=== PATIENT | female | born 1965 | race Caucasian/White ===

== ENCOUNTER 2016-06-25 20:27 | Observation (INO) | payer OTHER ==
[~2016-06-25] VITALS: Ht 160 cm; Wt 80.8 kg
[~2016-06-25 20:27] MED LIST: ALBUAER19 INH; ASPI81TA28 PO; ATOR-26 PO; ATV1 PO; CITA20TA9 PO; FENO48TA9 PO; FLNIN/ NAE; INSDGI SQ; LISI10TA PO; MAGN400T6 PO; METO50TA16 PO; MOME100A INH; MONT1TAB5 PO; MULT-513 PO; NVLGIPEN SQ; POLY335019 PO; TRAM-10 PO; TRMCR130WC PO; VALA1TAB PO; VST25HP PO
[2016-06-25] MEDS ORDERED: FENTANYL CITRATE INJ 50 MCG/1 ML 2 ML VIAL IV STA (20:49)
[2016-06-25 21:01] LABS: HEMATOCRIT 43.2 % (37-47); MEAN CORPUSCULAR HEMOGLOBIN 30.1 pg (25-34); MEAN CORPUSCULAR HGB CONC 34.3 g/dl (32-36); MEAN PLATELET VOLUME 9.2 fL (7.4-10.4); PLATELET COUNT 350 K/uL (130-400); RED BLOOD COUNT 4.91 M/uL (4.2-5.4); WHITE BLOOD COUNT 14.01 K/uL (4.8-10.8)
--- NOTE | 2016-06-25 21:02 | DIAGNOSTIC IMAGING REPORT ---
CHEST ONE VIEW PORTABLE CLINICAL HISTORY: Atypical chest pain COMPARISON STUDY: 09/30/2015 FINDINGS: The heart is normal in size. There is mild interstitial thickening. There is no overt failure. No pleural effusions are visualized. There is slight haziness the left lung base, likely related to technical factors. A follow-up PA and lateral study might be considered to exclude a true left basilar airspace opacity. No pleural effusions are visualized. IMPRESSION: Slight increase in left basal markings, likely related to technical factors. A PA and lateral study might considered in follow-up to help exclude a true left basal airspace opacity Electronically signed by: Yared Grover M.D. 06/25/2016 9:00 PM Dictated Date/Time: 06/25/2016 8:59 PM
[2016-06-25 21:18] LABS: BLOOD UREA NITROGEN 9 mg/dl (7-18); CALCIUM 9.3 mg/dl (8.5-10.1); CARBON DIOXIDE 27 mmol/L (21-32); CHLORIDE 101 mmol/L (98-107); CREATININE 0.57 mg/dl (0.60-1.20); GLUCOSE 158 mg/dl (70-99); POTASSIUM 3.5 mmol/L (3.5-5.1); SODIUM 138 mmol/L (136-145)
[2016-06-25 21:23] LABS: CKMB/CK RATIO 1.3 (0-3.0)
[2016-06-25] MEDS ORDERED: ISOS30TA35 PO (21:32)
[2016-06-25] MEDS ORDERED: INSDGI SC (21:32)
[2016-06-25 21:48] LABS: BASO % 0.3 %; BASO ABS # 0.04 K/uL (0-0.2); COMPLETE YES; EOS % 0.6 %; IG% 0.4 %; LYMPH % 36.2 %; LYMPH ABS # 5.07 K/uL (1.2-3.4); MONO % 4.2 %; NEUT % 58.3 %; SMUDGE CELLS PRESENT
[2016-06-25 22:08] VITALS: O2SAT 95; BMI 31.9
[2016-06-25] MEDS ORDERED: LORAZEPAM 0.5 MG TAB SL STA (22:19)
[2016-06-25] MEDS ORDERED: POLYETHYLENE (MIRALAX) 17 GM PACK PO PRN (23:15)
[2016-06-25] MEDS ORDERED: DEXTROSE 50% 50 ML SYR IV PRN (23:15)
[2016-06-25] MEDS ORDERED: GLUCAGON FOR INJ 1 MG VIAL SQ PRN (23:15)
[2016-06-25] MEDS ORDERED: MoRPHine SULFATE 2 MG/ML CARP IV PRN (23:15)
[2016-06-25] MEDS ORDERED: ONDANSETRON INJ 2 MG/ML 2 ML VIAL IV PRN (23:15)
[2016-06-25] MEDS ORDERED: NITROGLYCERIN 0.4 MG SL PER TAB CHARGE SL PRN (23:15)
[2016-06-25] MEDS ORDERED: ACETAMINOPHEN 325 MG TAB PO PRN (23:15)
[2016-06-25] MEDS ORDERED: GLUCOSE 10 TABS/TUBE PO PRN (23:15)
[2016-06-25] MEDS ORDERED: GLUCOSE 40% GEL 15 GM TUBE PO PRN (23:15)
[2016-06-25] MEDS ORDERED: TRAMADOL HCL 50 MG TAB PO PRN (23:30)
[2016-06-25] MEDS ORDERED: ALBUTEROL HFA 8 GM INHALER INH PRN (23:30)
[2016-06-25] MEDS ORDERED: LORAZEPAM 1 MG TAB PO PRN (23:30)
[2016-06-25] MEDS ORDERED: FLUTICASONE PROPIONATE NA SPR 16 GM BTL NAE PRN (23:30)
[2016-06-25 23:37] VITALS: O2SAT 95
--- NOTE | 2016-06-25 23:42 | History and Physical ---
History & Physical Date & Time of Service: Jun 25, 2016 at 23:20 Chief Complaint: Chest Pain Primary Care Physician: Jeremiah Foster M.D. History of Present Illness Source: patient, family 51 yo F with chronic chest pain presents with worsening of chest pain associated with palpitations, tingling in her R arm, nausea and some shortness of breath. She has a h/o STEMI s/p PCI to RCA, chronic RCA occlusion per cardiac cath in June of 2015, hypertension, tobacco abuse, noncompliance, diabetes that is uncontrolled and hypercholesterolemia. She was recently seen in the Cards office as an outpatient for chest pains and underwent a stress test that was negative for inducible ischemia. She was given PRN nitro tabs to take for pain which she didn't have at the time; her Imdur was also increased to 60mg recently.She states that after taking the nitro tabs at home, she felt no relief and called EMS. In the ambulance she received 2 more nitro sprays and ASA 325mg, however, she didn't get any relief until she had the fentanyl in the ER. At the time of this interview her pain was at a zero and all of her symptoms listed above had resolved. She also mentioned a headache that had resolved. Past Medical/Surgical History Medical Problems: (1) Asthma Status: Chronic (2) Benign hypertension Status: Chronic (3) Diabetes mellitus Status: Chronic (4) Genital herpes Status: Chronic (5) Heart disease Status: Chronic (6) Myocardial infarction Status: Chronic (7) Placement of stent Status: Resolved (8) Sarcoidosis Status: Chronic (9) Tobacco abuse Status: Chronic Surgical Problems: (1) H/O exploratory laparotomy Status: Chronic (2) Previous section Status: Chronic (3) S/P TAO-BSO Status: Chronic Family History Cancer Diabetes mellitus Hypertension Kidney disease Kidney stones Social History Smoking Status: Current Every Day Smoker Alcohol Use: none Drug Use: none Marital Status: Housing status: lives alone Occupational Status: disabled Immunizations History of Influenza Vaccine: Yes Influenza Vaccine Date: Jan 03, 2016 History of Tetanus Vaccine?: Yes Tetanus Immunization Date: Jan 19, 2013 History of Pneumococcal: Yes Pneumococcal Date: Feb 10, 2006 History of Hepatitis B Vaccine: Yes Hepatitis Immunization Date: Jun 15, 2016 Multi-Drug Resistant Organisms History of MDRO: No Allergies Coded Allergies: Sulfamethoxazole w/Trimethoprim (Verified Allergy, Intermediate, N/V/D, ) Adhesives (Verified Allergy, Mild, 10/01/15) Aminoglycosides (Verified Allergy, Unknown, ., 10/01/15) Bacitracin (Verified Allergy, Unknown, ., 10/01/15) Molds & Smuts (Verified Allergy, Unknown, ., 10/01/15) Neomycin (Verified Allergy, Unknown, ., 10/01/15) Polymyxin B (Verified Allergy, Unknown, ., 10/01/15) Home Medications Scheduled Aspirin (Aspirin Ec), 81 MG PO DAILY Atorvastatin (Lipitor), 80 MG PO QPM Citalopram Hydrobromide (Celexa), 20 MG PO QPM Fenofibrate (Tricor), 48 MG PO QPM Insulin Aspart (Novolog Flexpen), 14 UNITS SQ AC Insulin Glargine (Lantus), 30 SC AMPM Isosorbide Mononitrate Ext Rel (Imdur Ext Rel), 60 MG PO DAILY Lisinopril (Prinivil), 10 MG PO DAILY Metoprolol Tartrate (Lopressor) (Lopressor), 50 MG PO BID Montelukast Sodium (Montelukast Sodium), 10 MG PO DAILY Multivitamins/Minerals (Mvi With Minerals), 1 TAB PO DAILY Triamcinolone Acet (Aristocort 0.1%), 1 APPLN PO TID UD Scheduled PRN Albuterol Inhaler (Ventolin Inhaler), 2 PUFFS INH QID PRN for Shortness of Breath Fluticasone Propionate (Fluticasone Propionate), 2 SPRAYS JV DAILY PRN for CONGESTION Hydroxyzine HCl (Hydroxyzine Pamoate), 25 MG PO Q6 PRN for Itching Lorazepam (Lorazepam), 1 MG PO BID PRN for Anxiety Mometasone Furoate-Formoterol (Dulera 100/5 Mcg), 2 PUFFS INH BID PRN for SOB/ Wheezing Polyethylene Glycol 3350 (Miralax), 17 GM PO DAILY PRN for Constipation Tramadol (Ultram), 50 MG PO Q6 PRN for Pain Valacyclovir (Valtrex), 1,000 MG PO BID PRN for as needed Review of Systems All systems were reviewed and negative except as indicated in HPI. Physical Exam Vital Signs Date Time Temp Pulse Resp B/P Pulse Ox O2 Delivery O2 Flow Rate FiO2 06/25/16 22:18 Room Air 06/25/16 22:16 80 20 115/80 97 Room Air 06/25/16 22:08 95 Room Air 06/25/16 20:33 36.6 83 20 133/74 95 Room Air 06/25/16 20:33 Room Air 06/25/16 20:28 89 GEN: WNWD, in no acute distress, alert and appropriate HEENT: NC/AT, normal sclerae CARDIO: reg rate, S1/2 heard without m/g/r LUNGS: CTA bilaterally, no crackles, rales or wheezes, good diaphragmatic excursion ABD: soft, non-tender, non-distended, no rebound or guarding, +BS EXTREMITY: pulses 2+ bilat, no LE swelling or edema, extremities are warm and well-perfused NEURO: CN 2-12 grossly intact, no gross focal deficits MUSC: 5/5 strength throughout, no focal deficits SKIN: warm and dry Diagnostics Laboratory Results Results Past 24 Hours Test 06/25/16 20:16 06/25/16 23:13 Range/Units White Blood Count 14.01 4.8-10.8 K/uL Red Blood Count 4.91 4.2-5.4 M/uL Hemoglobin 14.8 12.0-16.0 g/dL Hematocrit 43.2 37-47 % Mean Corpuscular Volume 88.0 80-100 fL Mean Corpuscular Hemoglobin 30.1 25-34 pg Mean Corpuscular Hemoglobin Concent 34.3 32-36 g/dl Platelet Count 350 130-400 K/uL Mean Platelet Volume 9.2 7.4-10.4 fL Neutrophils (%) (Auto) 58.3 % Lymphocytes (%) (Auto) 36.2 % Monocytes (%) (Auto) 4.2 % Eosinophils (%) (Auto) 0.6 % Basophils (%) (Auto) 0.3 % Neutrophils # (Auto) 8.17 1.4-6.5 K/uL Lymphocytes # (Auto) 5.07 1.2-3.4 K/uL Monocytes # (Auto) 0.59 0.11-0.59 K/uL Eosinophils # (Auto) 0.09 0-0.5 K/uL Basophils # (Auto) 0.04 0-0.2 K/uL RDW Standard Deviation 43.8 36.4-46.3 fL RDW Coefficient of Variation 13.6 11.5-14.5 % Immature Granulocyte % (Auto) 0.4 % Immature Granulocyte # (Auto) 0.05 0.00-0.02 K/uL Smudge Cells PRESENT Sodium Level 138 136-145 mmol/L Potassium Level 3.5 3.5-5.1 mmol/L Chloride Level 101 98-107 mmol/L Carbon Dioxide Level 27 21-32 mmol/L Anion Gap 10.0 3-11 mmol/L Blood Urea Nitrogen 9 7-18 mg/dl Creatinine 0.57 0.60-1.20 mg/dl Est Creatinine Clear Calc Drug Dose 116.9 ml/min Estimated GFR () 123.5 Estimated GFR (Non- 106.6 BUN/Creatinine Ratio 16.0 10-20 Random Glucose 158 70-99 mg/dl Calcium Level 9.3 8.5-10.1 mg/dl Total Creatine Kinase 72 26-192 U/L Creatine Kinase MB 0.9 0.5-3.6 ng/ml Creatine Kinase MB Ratio 1.3 0-3.0 Troponin I < 0.015 0-0.045 ng/ml Diagnostic Radiology CXR port IMPRESSION: Slight increase in left basal markings, likely related to technical factors. A PA and lateral study might considered in follow-up to help exclude a true left basal airspace opacity EKG EKG: SR 86, evidence of prior inferior and anterior infarct, unchanged from prior ekg in 2016. Impression Assessment and Plan 51 yo female with known CAD and chronic RCA occlusion presents with worsening of recent chest pain associated with symptoms that have resolved with Fentanyl. 1. Chest pain-likely angina related to chronic occlusive disease. Cont medical management of CAD currently on and await Cards evaluation--they see her as outpatient. She was recently increased on Imdur from 30 to 60mg PO daily. She took nitro with no relief but had total relief in the ER wtih Fentanyl. For this reason, would opt for morphine first line PRN pain overnight. She is currently pain-free. Cont to trend serial cardiac enzymes-first set was negative. 2. DMII-uncontrolled, ISS/Lantus, inpt glycemic manager trust consult 3, Active smoker-encouraged to quit 4. HTN-controlled, however, she admits to not taking her lisinopril today because she was afraid her BP would drop too low on the recently increased Indur 60mg 5. Hyperlipidemia-cont Lipitor and Fenofibrate. Lovenox 40mg SQ daily Full Code Dispo-to telemetry for monitoring overnight. Grazyna Sorenson DO Hospitalist Level of Care Telemetry Advanced Directives Existing Living Will: No Existing Power of Stenocaptioner: No Resuscitation Status FULL RESUSCITATION VTE Prophylaxis VTE Risk Assessment Done? Y/N: Yes Risk Level: Moderate Given or contraindicated: Enoxaparin (Lovenox)SQ
[2016-06-25 23:43] LABS: PROTHROMBIN TIME (PATIENT) 10.3 SECONDS (9.0-12.0)
[2016-06-25] MEDS ORDERED: IV FLUIDS COMPLETED PRN (23:45)
[2016-06-25] MEDS ORDERED: PHARMACY GLYCEMIC MGMT CONSULT PRN (23:45)
[2016-06-26 00:10] VITALS: BP 145/73; PULSE 78; TEMP 37; O2SAT 93
--- NOTE | 2016-06-26 00:42 | EMERGENCY ROOM VISIT NOTE ---
History Report prepared by Berry: Katiuska Lovell Under the Supervision of: Dr. Ozzie Osullivan D.O. First contact with patient: 20:35 Chief Complaint: CHEST PAIN Stated Complaint: CHEST PAIN History of Present Illness The patient is a 51 year old female who presents to the Emergency Room with complaints of worsening left-sided chest pain that started around 1700. She describes the pain has heaviness and pounding. She came to the ED via ambulance. She was given 324 mg of aspirin and two sprays of SL nitroglycerin en route. The patient was visiting her friend when the pain started. She states that she was just sitting there, but she adds that she got into an argument with her daughter on the phone also. She began to feel her heart racing and then she developed the chest pain. The patient is also experiencing a headache, right arm pain, nausea, and shortness of breath. She denies rhinorrhea, cough, and vomiting. The patient adds that she took her insulin this afternoon, but didn't eat much so she thought that the pain might be due to her blood sugar being low. She ate something but the pain did not improve. The patient denies any history of blood clots and problems with her aorta. the patient has a history of diabetes, hypertension, hyperlipidemia, and sarcoidosis. She also has a history of previous MIs and has two stents placed, but they were so long ago that she doesn't remember if this feels similar to those. Additionally, the patient states that she has been experiencing intermittent chest pain, so she was started on long-acting nitroglycerin, which was recently increased. Source of History: patient Onset: around 1700 Position: chest (left) Quality: other (heaviness, pounding) Timing: worsening Associated Symptoms: + SOB, + headache, + nausea, No cough, No vomiting Note: right arm pain, no rhinorrhea Review of Systems See HPI for pertinent positives & negatives. A total of 10 systems reviewed and were otherwise negative. Past Medical & Surgical Medical Problems: (1) Asthma (2) Benign hypertension (3) Chest pain (4) Diabetes mellitus (5) Genital herpes (6) Heart disease (7) Myocardial infarction (8) Placement of stent (9) Sarcoidosis (10) Tobacco abuse Surgical Problems: (1) H/O exploratory laparotomy (2) Previous section (3) S/P TAO-BSO Family History Cancer Diabetes mellitus Hypertension Kidney disease Kidney stones Social History Smoking Status: Current Every Day Smoker Alcohol Use: none Drug Use: none Marital Status: Housing Status: lives alone Current/Historical Medications Scheduled Aspirin (Aspirin Ec), 81 MG PO DAILY Atorvastatin (Lipitor), 80 MG PO QPM Citalopram Hydrobromide (Celexa), 20 MG PO QPM Fenofibrate (Tricor), 48 MG PO QPM Insulin Aspart (Novolog Flexpen), 14 UNITS SQ AC Insulin Glargine (Lantus), 30 SC AMPM Isosorbide Mononitrate Ext Rel (Imdur Ext Rel), 60 MG PO DAILY Lisinopril (Prinivil), 10 MG PO DAILY Metoprolol Tartrate (Lopressor) (Lopressor), 50 MG PO BID Montelukast Sodium (Montelukast Sodium), 10 MG PO DAILY Multivitamins/Minerals (Mvi With Minerals), 1 TAB PO DAILY Triamcinolone Acet (Aristocort 0.1%), 1 APPLN PO TID UD Scheduled PRN Albuterol Inhaler (Ventolin Inhaler), 2 PUFFS INH QID PRN for Shortness of Breath Fluticasone Propionate (Fluticasone Propionate), 2 SPRAYS JV DAILY PRN for CONGESTION Hydroxyzine HCl (Hydroxyzine Pamoate), 25 MG PO Q6 PRN for Itching Lorazepam (Lorazepam), 1 MG PO BID PRN for Anxiety Mometasone Furoate-Formoterol (Dulera 100/5 Mcg), 2 PUFFS INH BID PRN for SOB/ Wheezing Polyethylene Glycol 3350 (Miralax), 17 GM PO DAILY PRN for Constipation Tramadol (Ultram), 50 MG PO Q6 PRN for Pain Valacyclovir (Valtrex), 1,000 MG PO BID PRN for as needed Allergies Coded Allergies: Sulfamethoxazole w/Trimethoprim (Verified Allergy, Intermediate, N/V/D, ) Adhesives (Verified Allergy, Mild, 10/01/15) Aminoglycosides (Verified Allergy, Unknown, ., 10/01/15) Bacitracin (Verified Allergy, Unknown, ., 10/01/15) Molds & Smuts (Verified Allergy, Unknown, ., 10/01/15) Neomycin (Verified Allergy, Unknown, ., 10/01/15) Polymyxin B (Verified Allergy, Unknown, ., 10/01/15) Physical Exam Vital Signs Date Time Temp Pulse Resp B/P Pulse Ox O2 Delivery O2 Flow Rate FiO2 06/25/16 22:18 Room Air 06/25/16 22:16 80 20 115/80 97 Room Air 06/25/16 22:08 95 Room Air 06/25/16 20:33 36.6 83 20 133/74 95 Room Air 06/25/16 20:33 Room Air 06/25/16 20:28 89 Physical Exam GENERAL: alert, sitting up in bed, anxious, no distress, non-toxic EYE EXAM: normal conjunctiva OROPHARYNX: no exudate, no erythema, lips, buccal mucosa, and tongue normal and mucous membranes are moist NECK: supple, no nuchal rigidity, no adenopathy, non-tender LUNGS: Clear to auscultation. Normal chest wall mechanics HEART: no murmurs, S1 normal and S2 normal ABDOMEN: abdomen soft, non-tender, normo-active bowel sounds, no masses, no rebound or guarding. BACK: Back is symmetrical on inspection and there is no deformity, no midline tenderness, no CVA tenderness. SKIN: no rashes and no bruising UPPER EXTREMITIES: upper extremities are grossly normal, radial pulses equal bilaterally. LOWER EXTREMITIES: No pitting edema, calves equal bilaterally. NEURO EXAM: Normal sensorium, cranial nerves II-XII grossly intact, normal speech, no gross weakness of arms, no gross weakness of legs. Medical Decision & Procedures ER Provider Diagnostic Interpretation: Xray results per the radiologist and my interpretation. CHEST ONE VIEW PORTABLE IMPRESSION: Slight increase in left basal markings, likely related to technical factors. A PA and lateral study might considered in follow-up to help exclude a true left basal airspace opacity Electronically signed by: Yared Grover M.D. 06/25/2016 9:00 PM Dictated Date/Time: 06/25/2016 8:59 PM Laboratory Results 06/25/16 20:16 Red Blood Count 4.91, Mean Corpuscular Volume 88.0, Mean Corpuscular Hemoglobin 30.1, Mean Corpuscular Hemoglobin Concent 34.3, Mean Platelet Volume 9.2, Neutrophils (%) (Auto) 58.3, Lymphocytes (%) (Auto) 36.2, Monocytes (%) (Auto) 4.2, Eosinophils (%) (Auto) 0.6, Basophils (%) (Auto) 0.3, Neutrophils # (Auto) 8.17, Lymphocytes # (Auto) 5.07, Monocytes # (Auto) 0.59, Eosinophils # (Auto) 0.09, Basophils # (Auto) 0.04 06/25/16 20:16 Test 06/25/16 20:16 White Blood Count 14.01 K/uL (4.8-10.8) Red Blood Count 4.91 M/uL (4.2-5.4) Hemoglobin 14.8 g/dL (12.0-16.0) Hematocrit 43.2 % (37-47) Mean Corpuscular Volume 88.0 fL (80-100) Mean Corpuscular Hemoglobin 30.1 pg (25-34) Mean Corpuscular Hemoglobin Concent 34.3 g/dl (32-36) Platelet Count 350 K/uL (130-400) Mean Platelet Volume 9.2 fL (7.4-10.4) Neutrophils (%) (Auto) 58.3 % Lymphocytes (%) (Auto) 36.2 % Monocytes (%) (Auto) 4.2 % Eosinophils (%) (Auto) 0.6 % Basophils (%) (Auto) 0.3 % Neutrophils # (Auto) 8.17 K/uL (1.4-6.5) Lymphocytes # (Auto) 5.07 K/uL (1.2-3.4) Monocytes # (Auto) 0.59 K/uL (0.11-0.59) Eosinophils # (Auto) 0.09 K/uL (0-0.5) Basophils # (Auto) 0.04 K/uL (0-0.2) RDW Standard Deviation 43.8 fL (36.4-46.3) RDW Coefficient of Variation 13.6 % (11.5-14.5) Immature Granulocyte % (Auto) 0.4 % Immature Granulocyte # (Auto) 0.05 K/uL (0.00-0.02) Smudge Cells PRESENT Prothrombin Time 10.3 SECONDS (9.0-12.0) Prothromb Time International Ratio 1.0 (0.9-1.1) Anion Gap 10.0 mmol/L (3-11) Est Creatinine Clear Calc Drug Dose 116.9 ml/min Estimated GFR () 123.5 Estimated GFR (Non- 106.6 BUN/Creatinine Ratio 16.0 (10-20) Calcium Level 9.3 mg/dl (8.5-10.1) Total Creatine Kinase 72 U/L (26-192) Creatine Kinase MB 0.9 ng/ml (0.5-3.6) Creatine Kinase MB Ratio 1.3 (0-3.0) Troponin I < 0.015 ng/ml (0-0.045) Hepatitis C Antibody Screen NEG (NEG) Laboratory results per my review. Medications Administered Medications (Trade) Dose Ordered Sig/Kamryn Route Start Time Stop Time Status Last Admin Dose Admin Fentanyl Citrate (Fentanyl Inj) 50 mcg NOW STAT IV 06/25/16 20:49 06/25/16 20:51 DC 06/25/16 20:59 50 MCG Lorazepam (Ativan Tab) 0.5 mg NOW STAT SL 06/25/16 22:19 06/25/16 22:20 DC 06/25/16 22:22 0.5 MG ECG Indication: chest pain Rate (beats per minute): 86 Rhythm: sinus rhythm Findings: Q waves (Inferior, Anterior, Lateral) Comparison ECG Date: 09/30/2015 Change: Lateral Q waves are new, anterior and inferior Q waves are old ED Course ED COURSE: Vital signs were reviewed and showed normal. The patients medical record was reviewed The above diagnostic studies were performed and reviewed. ED treatments and interventions as stated above. 2041: The patient was evaluated in room B2. A complete history and physical examination was performed. 2048: Ordered Fentanyl Citrate 50 mcg IV 2110: I reassessed the patient. She is no longer in pain. 2148: Upon reevaluation, the patient is resting comfortably. I discussed my findings with the patient and she understands and agrees with the treatment plan. Based on the patients age, coexisting illnesses, exam and lab findings the decision to treat as an inpatient was made. The patient remained stable while under my care. The patient will be evaluated for further management. 2152: I reviewed the patient's case with Dr. Marcia Glass. The patient will be evaluated for further management. 2218: Ordered Ativan Tab 0.5 mg SL Medical Decision Differential diagnoses includes but is not limited to acute coronary syndrome, myocardial infarction, pericarditis, pulmonary embolus, aortic dissection, pneumonia, pneumothorax, musculoskeletal, shingles, esophageal. Patient is a 51-year-old female with a past medical history of a previous ND and 2 stents of presents the ER with chest pain located in the middle of her chest described as a heaviness. It was associated with shortness of breath and arm pain. Pain with was significant improved with nitroglycerin. She was brought in by EMS and also given aspirin. Upon arrival EKG does show old Q waves. Patient was also given fentanyl with resolution of her pain. Troponin was initially negative. Chest x-ray was unremarkable. Patient was pain-free and admitted to internal medicine with her history of CAD, hypertension, hyperlipidemia and diabetes. Consults Time Called: 2150 Consulting Physician: Dr. Marcia Glass Returned Call: 2152 I reviewed the patient's case with Dr. Marcia Glass. The patient will be evaluated for further management. Impression Primary Impression: Precordial chest pain Scribe Attestation The scribe's documentation has been prepared under my direction and personally reviewed by me in its entirety. I confirm that the note above accurately reflects all work, treatment, procedures, and medical decision making performed by me. Departure Information Dispostion Being Evaluated By Hospitalist Jeremiah Garcia M.D. (PCP) Patient Instructions My [facility]
[2016-06-26] MEDS: DULERA~ORDER AWAITING ACTION SCH ×3 (01:00→15:00)
[2016-06-26] MEDS: INSULIN GLARGINE SOLOSTAR 100 UNITS/ML 3 ML PEN SC SCH ×2 (01:15→08:49)
[2016-06-26] MEDS: INSULIN ASPART 100 UNITS/ML 3 ML PEN SC SCH ×3 (01:16→12:06)
[2016-06-26] MEDS: METOPROLOL TARTRATE 50 MG TAB PO SCH ×2 (02:07→08:46)
[2016-06-26 04:52] VITALS: BP 128/65; PULSE 64; TEMP 36.7; O2SAT 95
[2016-06-26 07:19] VITALS: BP 161/86; PULSE 70; TEMP 36.5; O2SAT 91
[2016-06-26 08:22] LABS: HEMATOCRIT 42.6 % (37-47); MEAN CELL VOLUME 89.3 fL (80-100); MEAN CORPUSCULAR HGB CONC 33.6 g/dl (32-36); MEAN PLATELET VOLUME 8.9 fL (7.4-10.4); PLATELET COUNT 303 K/uL (130-400); RED BLOOD COUNT 4.77 M/uL (4.2-5.4)
[2016-06-26 08:34] LABS: ESTIMATED AVERAGE GLUCOSE 306 mg/dl; HA1C FLAG Normal (Normal)
[2016-06-26 08:53] LABS: BLOOD UREA NITROGEN 10 mg/dl (7-18); BUN/CREATININE RATIO 20.6 (10-20); CARBON DIOXIDE 23 mmol/L (21-32); CHLORIDE 105 mmol/L (98-107); CHOLESTEROL 180 mg/dl (0-200); CREATININE 0.48 mg/dl (0.60-1.20); GLUCOSE 180 mg/dl (70-99); MAGNESIUM 1.7 mg/dl (1.8-2.4); POTASSIUM 4.1 mmol/L (3.5-5.1); SODIUM 140 mmol/L (136-145); TRIGLYCERIDES 528 mg/dl (0-150)
[2016-06-26 08:58] LABS: CHOLESTEROL/HDL RATIO 6.9; CKMB/CK RATIO 1.6 (0-3.0); HDL CHOLESTEROL 26 mg/dl
[2016-06-26] MEDS ORDERED: LISINOPRIL 10 MG TAB PO SCH (09:00)
[2016-06-26] MEDS ORDERED: ASPIRIN 81 MG ECTAB PO SCH ×2 (09:00)
[2016-06-26] MEDS ORDERED: CEROVITE ADV FORMULA TAB PO SCH (09:00)
[2016-06-26] MEDS ORDERED: ENOXAPARIN 40 MG/0.4 ML SYR SC SCH (09:00)
[2016-06-26] MEDS ORDERED: ISOSORBIDE MONONITRATE 60 MG TABCR PO SCH (09:00)
[2016-06-26] MEDS ORDERED: MONTELUKAST SOD 10 MG TAB PO SCH (09:00)
--- NOTE | 2016-06-26 09:37 | Progress Note ---
Internal Med Progress Note Date of Service: Jun 26, 2016. Provider Documentation: SUBJECTIVE: Patient is doing well. No chest pain since in hospital No palpitations, SOB, nausea, vomiting, fever, chills, cough, leg swelling Tele- no events OBJECTIVE: Vital Signs-as noted below Exam: General-AAOX3, no distress Neck-Supple, No JVD Lungs-AEBE, no wheezing, crackles, rhonchi Heart-S1, S2 normal, no murmurs Abdomen-Soft, non tender, non distended, BS present Extremities-No edema Lab data as noted below. ASSESSMENT & PLAN: Assessment and Plan : 51 yo female with known CAD and chronic RCA occlusion presents with worsening of recent chest pain associated with symptoms that have resolved with Fentanyl. CHEST PAIN: Patient c/o on and off chest pain episodes triggered by arguments with her daughter, self limiting, not necessarily exacerbated by activity. Came with similar episode of chest pain, lasting for 2-3 hours till she received Fentanyl in ED, NTG did not help with relief of pain. Recent stress test few days ago outpatient- no acute ischemia noted. -Risk factors: CAD- h/o STEMI s/p PCI to RCA, chronic RCA occlusion per cardiac cath in June of 2015, DM-II, HTN, HLP, Smoker -EKG- no acute ischemic changes, Troponin x 3 negative. Had a stress test outpatient (few days ago)- negative. -Continue with ASA, Metoprolol 50 mg bid, Lisinopril, Lipitor 80 mg daily, Imdur 60 mg daily -Cardiology consulted HX OF STEMI S/P PCI-RCA, chronic RCA occlusion per cath -Per June 2015 cath report -Continue with ASA 81 mg, Metoprolol 50 mg PO BID, Lisinopril, Lipitor 80 mg q HS, Imdur 60 mg daily -Mx as above DM-II -Uncontrolled -ISS, Accuchecks, Lantus HTN- Controlled -Continue with lisinopril, Imdur 60 mg HLP -On lipitor/fenofibrate TOBACCO ABUSE DISORDER Nicotine patch. Motivated to quit. Counseling done DVT PROPHYLAXIS Lovenox 40mg SQ daily FULL CODE DISPOSITION -Continue with tele monitoring Vital Signs: Date Time Temp Pulse Resp B/P Pulse Ox O2 Delivery O2 Flow Rate FiO2 06/26/16 07:19 36.5 70 16 161/86 91 06/26/16 04:52 36.7 64 20 128/65 95 06/26/16 04:00 Room Air 06/26/16 00:10 37.0 78 20 145/73 93 Room Air 06/25/16 23:37 80 17 149/59 95 06/25/16 23:32 80 17 149/59 95 Room Air 06/25/16 22:18 Room Air 06/25/16 22:16 80 20 115/80 97 Room Air 06/25/16 22:08 95 Room Air 06/25/16 20:33 36.6 83 20 133/74 95 Room Air 06/25/16 20:33 Room Air 06/25/16 20:28 89 Lab Results: Results Past 24 Hours Test 06/25/16 20:16 06/26/16 00:55 06/26/16 02:25 06/26/16 07:17 Range/Units White Blood Count 14.01 4.8-10.8 K/uL Red Blood Count 4.91 4.2-5.4 M/uL Hemoglobin 14.8 12.0-16.0 g/dL Hematocrit 43.2 37-47 % Mean Corpuscular Volume 88.0 80-100 fL Mean Corpuscular Hemoglobin 30.1 25-34 pg Mean Corpuscular Hemoglobin Concent 34.3 32-36 g/dl Platelet Count 350 130-400 K/uL Mean Platelet Volume 9.2 7.4-10.4 fL Neutrophils (%) (Auto) 58.3 % Lymphocytes (%) (Auto) 36.2 % Monocytes (%) (Auto) 4.2 % Eosinophils (%) (Auto) 0.6 % Basophils (%) (Auto) 0.3 % Neutrophils # (Auto) 8.17 1.4-6.5 K/uL Lymphocytes # (Auto) 5.07 1.2-3.4 K/uL Monocytes # (Auto) 0.59 0.11-0.59 K/uL Eosinophils # (Auto) 0.09 0-0.5 K/uL Basophils # (Auto) 0.04 0-0.2 K/uL RDW Standard Deviation 43.8 36.4-46.3 fL RDW Coefficient of Variation 13.6 11.5-14.5 % Immature Granulocyte % (Auto) 0.4 % Immature Granulocyte # (Auto) 0.05 0.00-0.02 K/uL Smudge Cells PRESENT Prothrombin Time 10.3 9.0-12.0 SECONDS Prothromb Time International Ratio 1.0 0.9-1.1 Sodium Level 138 136-145 mmol/L Potassium Level 3.5 3.5-5.1 mmol/L Chloride Level 101 98-107 mmol/L Carbon Dioxide Level 27 21-32 mmol/L Anion Gap 10.0 3-11 mmol/L Blood Urea Nitrogen 9 7-18 mg/dl Creatinine 0.57 0.60-1.20 mg/dl Est Creatinine Clear Calc Drug Dose 116.9 ml/min Estimated GFR () 123.5 Estimated GFR (Non- 106.6 BUN/Creatinine Ratio 16.0 10-20 Random Glucose 158 70-99 mg/dl Calcium Level 9.3 8.5-10.1 mg/dl Total Creatine Kinase 72 57 26-192 U/L Creatine Kinase MB 0.9 < 0.5 0.5-3.6 ng/ml Creatine Kinase MB Ratio 1.3 0-3.0 Troponin I < 0.015 < 0.015 0-0.045 ng/ml Hepatitis C Antibody Screen NEG NEG Bedside Glucose 233 184 70-90 mg/dl Test 06/26/16 08:00 Range/Units White Blood Count 9.70 4.8-10.8 K/uL Red Blood Count 4.77 4.2-5.4 M/uL Hemoglobin 14.3 12.0-16.0 g/dL Hematocrit 42.6 37-47 % Mean Corpuscular Volume 89.3 80-100 fL Mean Corpuscular Hemoglobin 30.0 25-34 pg Mean Corpuscular Hemoglobin Concent 33.6 32-36 g/dl RDW Standard Deviation 45.3 36.4-46.3 fL RDW Coefficient of Variation 13.8 11.5-14.5 % Platelet Count 303 130-400 K/uL Mean Platelet Volume 8.9 7.4-10.4 fL Sodium Level 140 136-145 mmol/L Potassium Level 4.1 3.5-5.1 mmol/L Chloride Level 105 98-107 mmol/L Carbon Dioxide Level 23 21-32 mmol/L Anion Gap 12.0 3-11 mmol/L Blood Urea Nitrogen 10 7-18 mg/dl Creatinine 0.48 0.60-1.20 mg/dl Est Creatinine Clear Calc Drug Dose 138.0 ml/min Estimated GFR () 130.7 Estimated GFR (Non- 112.8 BUN/Creatinine Ratio 20.6 10-20 Random Glucose 180 70-99 mg/dl Estimated Average Glucose 306 mg/dl Hemoglobin A1c 12.3 4.5-5.6 % Calcium Level 9.0 8.5-10.1 mg/dl Magnesium Level 1.7 1.8-2.4 mg/dl Total Creatine Kinase 63 26-192 U/L Creatine Kinase MB 1.0 0.5-3.6 ng/ml Creatine Kinase MB Ratio 1.6 0-3.0 Troponin I < 0.015 0-0.045 ng/ml Triglycerides Level 528 0-150 mg/dl Cholesterol Level 180 0-200 mg/dl HDL Cholesterol 26 mg/dl LDL Cholesterol, Calculated mg/dl VLDL Cholesterol, Calculated mg/dl Cholesterol/HDL Ratio 6.9 Chemistry Specimen Hemolysis
[2016-06-26 11:19] VITALS: BP 144/73; PULSE 68; TEMP 36.4; O2SAT 92; Ht 160 cm; Wt 80.8 kg
--- NOTE | 2016-06-26 12:09 | Cardiology Consultation ---
Cardiology Consultation Date of Consultation: Jun 26, 2016 Requesting Physician: Delta Attending Jack Machine Operator: Ashish (Gregorio Brandt PA-C) History of Present Illness Patient is a 51 year old female seen at the request of Dr. Sorenson. Reason for consultation is chest pain. Patient followed by Dr. Tom Monsalve with last evaluation on 2016. At that time she presented in routine follow-up with intermittent chest discomfort with exertion as well as at rest, exertional shortness of breath and chest heaviness in the cold as well as atypical sporadic, nonexertional sharp chest discomfort. EKG was not significantly changed when compared to prior tracing. She was referred for exercise stress testing which transpired on 2016. This demonstrated evidence of the old infarct but was negative for ischemia at 87% age predicted maximum heart rate. Resting echocardiography revealed normal systolic function with a qualitative LV ejection Fraction of 55 % with basal inferior wall hypokinesis to akinesis noted. She has been prescribed Imdur 30 mg/day which has been increased to 60 mg/day. The patient notes that yesterday she went to [facility] to get her granddaughter a Learning Pad. She then went to a friends house. She notes that her daughter became upset and irritated with her because she did not "underwood home." She then began to experience chest pain, pounding, racing, tingling in her right arm, nausea, mild dyspnea, headache. She took two sublingual nitroglycerin without relief and then summoned EMS. Notes, on questioning, noncompliance with medications, possible not taking metoprolol yesterday. The patient was transported to [facility] ER with relief noted after administration of Fentanyl in the ER. She has not had any further chest discomfort. EKG's are without acute changes. Cardiac enzymes are negative times three. Admission CXR revealed slight increase in left basal markings, likely related to technical factors as per Dr. Grover. 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 (Gregorio Brandt PA-C) History Past Medical/Surgical History: Chronic CAD History inferior STEMI status post PCI to RCA Catheterization in June 2015 revealed a chronic RCA occlusion prior to the stent with no significant coronary disease observed in the LM, LAD, or LCX. Hypertension Dyslipidemia Chronic tobacco abuse, ongoing Type II diabetes mellitus Cervical cancer Sarcoidosis Anxiety Depression GERD Noncompliance x 2. Exploratory of abdomen Total abdominal hysterectomy Family History: Mother is alive with CAD and a pacemaker. Father in an accident when she was 5. She does not know if her one brother or any of her three sisters have cardiac disease. Social History: Smoker, ~1/2 ppd since the age of 37. No significant alcohol. No illegal drug use. . Three children. (Gregorio Brandt PA-C) Review Of Systems General: Stress. Anxiety. No fever. No chills. HEENT: Headache. Right sided neck pain, not associated with the chest pain, not relative to activity. No head trauma. Cardiovascular: See above. Pulmonary: No cough. No hemoptysis. Gastrointestinal: GERD. No nausea, vomiting, or diarrhea. No melena or hematochezia. : Liver issues "Dr. Biggs is keeping an eye on it." Skin: Rash from the electrodes. Musculoskeletal: Arthritis. Neurological: No history of TIA, CVA, or seizures Complete review of systems is as stated above, negative, or noncontributory. (Gregorio Brandt PA-C) Allergies Coded Allergies: Sulfamethoxazole w/Trimethoprim (Verified Allergy, Intermediate, N/V/D, ) Adhesives (Verified Allergy, Mild, 10/01/15) Aminoglycosides (Verified Allergy, Unknown, ., 10/01/15) Bacitracin (Verified Allergy, Unknown, ., 10/01/15) Molds & Smuts (Verified Allergy, Unknown, ., 10/01/15) Neomycin (Verified Allergy, Unknown, ., 10/01/15) Polymyxin B (Verified Allergy, Unknown, ., 10/01/15) Medications Reported Home Medications Medications Dose Route/Sig Max Daily Dose Days Date Category Dose Instructions Imdur Ext Rel (Isosorbide Mononitrate) 30 Mg Tabcr 60 Mg PO DAILY 06/25/16 Reported Lantus (Insulin Glargine) 100 Unit/Ml Inj 30 SC AMPM 06/25/16 Reported Aristocort 0.1% (Triamcinolone Acet) 90 Appln/30 Gm Cr 1 Appln PO TID UD 01/16/16 Reported Prinivil (Lisinopril) 10 Mg Tab 10 Mg PO DAILY 01/16/16 Reported Novolog Flexpen (Insulin Aspart) 100 Units/Ml Inj 14 Units SQ AC 10/01/15 Reported Ultram (Tramadol HCl) 50 Mg Tab 50 Mg PO Q6 PRN 10/01/15 Reported Mvi With Minerals (Multivitamins/Minerals) Tab 1 Tab PO DAILY 10/01/15 Reported Dulera 100/5 Mcg (Mometasone Furoate-Formoterol) 1 Aer Aer 2 Puffs INH BID PRN 10/01/15 Reported Tricor (Fenofibrate) 48 Mg Tab 48 Mg PO QPM 10/01/15 Reported Miralax (Polyethylene Glycol 3350) 1 Pow Pow 17 Gm PO DAILY PRN 10/01/15 Reported Lipitor (Atorvastatin Calcium) 80 Mg Tab 80 Mg PO QPM 10/01/15 Reported Lopressor (Metoprolol Tartrate) 50 Mg Tab 50 Mg PO BID 10/01/15 Reported Montelukast Sodium 10 Mg Tab 10 Mg PO DAILY 10/01/15 Reported Celexa (Citalopram Hydrobromide) 20 Mg Tab 20 Mg PO QPM 07/16/15 Reported Aspirin Ec (Aspirin) 81 Mg Tab 81 Mg PO DAILY 11/10/14 Reported Hydroxyzine Pamoate (Hydroxyzine HCl) 25 Mg Tab 25 Mg PO Q6 PRN 11/10/14 Reported Fluticasone Propionate 120 Sprays/6000 Mcg Inha 2 Sprays JV DAILY PRN 11/10/14 Reported Lorazepam 1 Mg Tab 1 Mg PO BID PRN 11/10/14 Reported Valtrex (Valacyclovir HCl) 1,000 Mg Tab 1,000 Mg PO BID PRN 01/10/14 Reported 10 DAY COURSES Ventolin Inhaler (Albuterol) Aers 2 Puffs INH QID PRN 01/10/14 Reported (Gregorio Brandt PA-C) Physical Exam Vital Signs (Last 8hrs): Last 8 Hrs Date Time Temp Pulse Resp B/P Pulse Ox O2 Delivery O2 Flow Rate FiO2 06/26/16 11:19 36.4 68 16 144/73 92 06/26/16 08:45 Room Air 06/26/16 07:19 36.5 70 16 161/86 91 06/26/16 04:52 36.7 64 20 128/65 95 06/26/16 04:00 Room Air General Appearance: Alert and Oriented x3. NAD. Elevated BMI. Head: Normocephalic Atraumatic. Eyes: PER, EOMI, conjunctiva and sclera clear Neck: Supple. No carotid bruits noted. No JVD. Respiratory: Breath sounds clear to auscultation bilaterally. No w/r/r. Cardiovascular: RRR. No murmur. No rub. No gallop. Abdomen: Obese. +BS. Extremities: No edema. no clubbing. No cyanosis. Distal pulses 2/4 bilaterally. Neuro: No focal deficits. Psychiatric: Normal affect. (Gregorio Brandt PA-C) Data Last 24 Hours Test 06/25/16 20:16 06/26/16 00:55 06/26/16 02:25 06/26/16 07:17 White Blood Count 14.01 K/uL Red Blood Count 4.91 M/uL Hemoglobin 14.8 g/dL Hematocrit 43.2 % Mean Corpuscular Volume 88.0 fL Mean Corpuscular Hemoglobin 30.1 pg Mean Corpuscular Hemoglobin Concent 34.3 g/dl Platelet Count 350 K/uL Mean Platelet Volume 9.2 fL Neutrophils (%) (Auto) 58.3 % Lymphocytes (%) (Auto) 36.2 % Monocytes (%) (Auto) 4.2 % Eosinophils (%) (Auto) 0.6 % Basophils (%) (Auto) 0.3 % Neutrophils # (Auto) 8.17 K/uL Lymphocytes # (Auto) 5.07 K/uL Monocytes # (Auto) 0.59 K/uL Eosinophils # (Auto) 0.09 K/uL Basophils # (Auto) 0.04 K/uL RDW Standard Deviation 43.8 fL RDW Coefficient of Variation 13.6 % Immature Granulocyte % (Auto) 0.4 % Immature Granulocyte # (Auto) 0.05 K/uL Smudge Cells PRESENT Prothrombin Time 10.3 SECONDS Prothromb Time International Ratio 1.0 Sodium Level 138 mmol/L Potassium Level 3.5 mmol/L Chloride Level 101 mmol/L Carbon Dioxide Level 27 mmol/L Anion Gap 10.0 mmol/L Blood Urea Nitrogen 9 mg/dl Creatinine 0.57 mg/dl Est Creatinine Clear Calc Drug Dose 116.9 ml/min Estimated GFR () 123.5 Estimated GFR (Non- 106.6 BUN/Creatinine Ratio 16.0 Random Glucose 158 mg/dl Calcium Level 9.3 mg/dl Total Creatine Kinase 72 U/L 57 U/L Creatine Kinase MB 0.9 ng/ml < 0.5 ng/ml Creatine Kinase MB Ratio 1.3 Troponin I < 0.015 ng/ml < 0.015 ng/ml Hepatitis C Antibody Screen NEG Bedside Glucose 233 mg/dl 184 mg/dl Test 06/26/16 08:00 06/26/16 11:10 White Blood Count 9.70 K/uL Red Blood Count 4.77 M/uL Hemoglobin 14.3 g/dL Hematocrit 42.6 % Mean Corpuscular Volume 89.3 fL Mean Corpuscular Hemoglobin 30.0 pg Mean Corpuscular Hemoglobin Concent 33.6 g/dl RDW Standard Deviation 45.3 fL RDW Coefficient of Variation 13.8 % Platelet Count 303 K/uL Mean Platelet Volume 8.9 fL Sodium Level 140 mmol/L Potassium Level 4.1 mmol/L Chloride Level 105 mmol/L Carbon Dioxide Level 23 mmol/L Anion Gap 12.0 mmol/L Blood Urea Nitrogen 10 mg/dl Creatinine 0.48 mg/dl Est Creatinine Clear Calc Drug Dose 138.0 ml/min Estimated GFR () 130.7 Estimated GFR (Non- 112.8 BUN/Creatinine Ratio 20.6 Random Glucose 180 mg/dl Estimated Average Glucose 306 mg/dl Hemoglobin A1c 12.3 % Calcium Level 9.0 mg/dl Magnesium Level 1.7 mg/dl Total Creatine Kinase 63 U/L Creatine Kinase MB 1.0 ng/ml Creatine Kinase MB Ratio 1.6 Troponin I < 0.015 ng/ml Triglycerides Level 528 mg/dl Cholesterol Level 180 mg/dl HDL Cholesterol 26 mg/dl LDL Cholesterol, Calculated mg/dl VLDL Cholesterol, Calculated mg/dl Cholesterol/HDL Ratio 6.9 Chemistry Specimen Hemolysis Bedside Glucose 211 mg/dl (Gregorio Brandt PA-C) Assessment & Plan Admission with chest pain Stress echocardiography on 06/19/2016 was negative for exercise induced myocardial ischemia at 87% age predicted maximum heart rate. Atypical chest pain by history. EKG's negative. Cardiac enzymes negative x 3 RECOMMENDATIONS/PLAN: Continue beta-grant, Imdur, ASA, statin, and RIOS inhibition Risk factor and life style modification, medication compliance, tobacco cessation, stress reduction Follow-up with Dr. Monsalve as an outpatient. (Gregorio Brandt PA-C) Patient seen and examined, chart reviewed. Admitted with emotional stress mediated chest pain atypical for angina without EKG, enzyme abnormalities. Non cardiac etiology. Continue risk factor modification, urge continued Beta grant, tobacco cessation. Marco Hinojosa MD (Marco Hinojosa M.D.)
--- NOTE | 2016-06-26 12:24 | Pharmacy Progress Note ---
Glycemic Control Intl Consult Date of Service Jun 26, 2016. Scope Glycemic Pharmacist consulted by Dr Sorenson on 06/25/16 for glycemic control and to write orders per [facility] inpatient glycemic control protocol Objective Weight (Kilograms): 80.800 Accuchecks BSG (last 24hrs): Test 06/25/16 20:16 06/26/16 00:55 06/26/16 07:17 06/26/16 08:00 Random Glucose 158 mg/dl (70-99) 180 mg/dl (70-99) Bedside Glucose 233 mg/dl (70-90) 184 mg/dl (70-90) Test 06/26/16 11:10 Bedside Glucose 211 mg/dl (70-90) Laboratory Data (last 24hrs) Test 06/25/16 20:16 06/26/16 08:00 Anion Gap 10.0 mmol/L 12.0 mmol/L BUN/Creatinine Ratio 16.0 20.6 Blood Urea Nitrogen 9 mg/dl 10 mg/dl Creatinine 0.57 mg/dl 0.48 mg/dl Potassium Level 3.5 mmol/L 4.1 mmol/L Sodium Level 138 mmol/L 140 mmol/L White Blood Count 14.01 K/uL 9.70 K/uL Red Blood Count 4.91 M/uL Hemoglobin 14.8 g/dL Hematocrit 43.2 % Mean Corpuscular Volume 88.0 fL Mean Corpuscular Hemoglobin 30.1 pg Mean Corpuscular Hemoglobin Concent 34.3 g/dl Platelet Count 350 K/uL Mean Platelet Volume 9.2 fL Neutrophils (%) (Auto) 58.3 % Lymphocytes (%) (Auto) 36.2 % Monocytes (%) (Auto) 4.2 % Eosinophils (%) (Auto) 0.6 % Basophils (%) (Auto) 0.3 % Neutrophils # (Auto) 8.17 K/uL Lymphocytes # (Auto) 5.07 K/uL Monocytes # (Auto) 0.59 K/uL Eosinophils # (Auto) 0.09 K/uL Basophils # (Auto) 0.04 K/uL Hemoglobin A1c 12.3 % HbA1c Test 06/26/16 08:00 Hemoglobin A1c 12.3 % (4.5-5.6) H Recent Pertinent Medications Outpatient Anti-diabetic Regimen: * Lantus 30 units SQ BID * NovoLog 14 units SQ AC * only eats 1-2x/day * SMBG 1x/day * A1c = 12. % The patient is currently receiving: * Basal insulin: Lantus 10 units every 12 hours * Correctional Insulin: NovoLog Correction per scale ACHS Goal Range: Low 100 mg/dL - High 140 mg/dL Correction Factor: 40 mg/dL/unit * Prandial insulin: Per carb ratio of 1 unit per 12 grams CHO consumed Risk Factors for Insulin Resistance/Sensitivity: * High A1c can increase insulin resistance Assessment & Plan ASSESSMENT: * ADA & AACE recommend a goal blood sugar range 140-180 mg/dl for the majority of critically ill & non-critically ill patients. However, more stringent targets may be selected in individual cases. * A more stringent target chosen for non-elderly, non-ICU status * 51 y/o type 2 diabetic with BSGs elevated currently * Home regimen with basal/bolus insulin * hesitant to increase insulin doses secondary to fear of weight gain - may benefit from non-insulin antidiabetic medication at discharge * A1c very elevated * Current BSG 211mg/dL * will increase insulin doses based on both weight and home requirements * PLAN FOR INPATIENT GLYCEMIC CONTROL: * Lantus SQ BID * 10 units SQ if BSG is below 120mg/dL * 15 units SQ if BSG is 120-160mg/dL * 20 units SQ if BSG is above 160mg/dL * NovoLog SQ AC and HS * Correction factor: 20mg/dL/unit * Carb ratio: 1 unit per 7 g of CHO consumed * Goal: 110-140mg/dL * A1c - current * added to discharge RECOMMENDATIONS FOR DISCHARGE: * awaited * Please note that the plan above was derived based on current level of insulin resistance and hospital stress. These recommendations are appropriate for inpatient admission only. Plan of care upon discharge will need to be reassessed to avoid potential outpatient hypo/hyperglycemia. Thank you.
--- NOTE | 2016-06-26 15:45 | Discharge Instructions ---
Discharge Instructions Date of Service Jun 26, 2016. Admission Reason for Admission: Chest Pain Discharge Discharge Diagnosis / Problem: 1. Chest pain, acute myocardial infarction ( heart attack) ruled out Discharge Goals Goal(s): Diagnostic testing, Therapeutic intervention Activity Recommendations Activity Limitations: resume your previous activity . Instructions / Follow-Up Instructions / Follow-Up No changes in medications FOLLOW UP 1. Dr Foster (PCP) 07/02/16 at 11:[address] Monsalve (Cardiology) as per schedule Current Hospital Diet Patient's current hospital diet: AHA Diet (Heart Healthy), Diabetes Type 2 Diet Discharge Diet Recommended Diet: AHA Diet (Heart Healthy), Low Sodium Diet (2gm Na) Pending Studies Studies pending at discharge: no Laboratory Results Hemoglobin A1c Test 06/26/16 08:00 Range/Units Estimated Average Glucose 306 mg/dl Hemoglobin A1c 12.3 H 4.5-5.6 % Lipid Panel Test 06/26/16 08:00 Range/Units Triglycerides Level 528 H 0-150 mg/dl Cholesterol Level 180 0-200 mg/dl HDL Cholesterol 26 mg/dl Cholesterol/HDL Ratio 6.9 LDL Cholesterol, Calculated mg/dl Medical Emergencies . Who to Call and When: Medical Emergencies: If at any time you feel your situation is an emergency, please call 911 immediately. . Non-Emergent Contact Non-Emergency issues call your: Primary Care Provider . . "Provider Documentation" section prepared by Shelly Campos. VTE Core Measure Inpt VTE Proph given/why not?: Enoxaparin (Lovenox)SQ
[2016-06-26 15:50] VITALS: BP 144/73; PULSE 68; TEMP 36.4; O2SAT 92
--- NOTE | 2016-06-26 15:51 | Discharge Summary ---
Discharge Summary Date of Service Jun 26, 2016. Discharge Summary Admission Date: Jun 25, 2016 at 23:13 Discharge Date: Jun 26, 2016 Discharge Disposition: Home Principal Diagnosis: 1. Chest pain, acute myocardial infarction ruled out 2. Anxiety Secondary Diagnoses/Problems: 1. DM-2 2. Hyperlipidemia 3. Hypertension 4. Hx of STEMI Procedures: Tele monitoring Serial EKG Serial Troponin Consultations: Cardiology, Dr Hinojosa Pending Studies/Follow-Up: Instructions / Follow-Up No changes in medications FOLLOW UP 1. Dr Foster (PCP) 07/02/16 at 11:[address] Monsalve (Cardiology) as per schedule Medication Reconciliation Continued Medications: Albuterol Inhaler (Ventolin Inhaler) Aers 2 PUFFS INH QID PRN for Shortness of Breath, INHALER Aspirin (Aspirin Ec) 81 Mg Tab 81 MG PO DAILY Atorvastatin (Lipitor) 80 Mg Tab 80 MG PO QPM Citalopram Hydrobromide (Celexa) 20 Mg Tab 20 MG PO QPM, TAB Fenofibrate (Tricor) 48 Mg Tab 48 MG PO QPM Fluticasone Propionate (Fluticasone Propionate) 120 Sprays/6000 Mcg Inha 2 SPRAYS JV DAILY PRN for CONGESTION Hydroxyzine HCl (Hydroxyzine Pamoate) 25 Mg Tab 25 MG PO Q6 PRN for Itching Insulin Aspart (Novolog Flexpen) 100 Units/Ml Inj 14 UNITS SQ AC Insulin Glargine (Lantus) 100 Unit/Ml Inj 30 SC AMPM, VIAL Isosorbide Mononitrate Ext Rel (Imdur Ext Rel) 30 Mg Tabcr 60 MG PO DAILY, #34 Lisinopril (Prinivil) 10 Mg Tab 10 MG PO DAILY, TAB Lorazepam (Lorazepam) 1 Mg Tab 1 MG PO BID PRN for Anxiety Metoprolol Tartrate (Lopressor) (Lopressor) 50 Mg Tab 50 MG PO BID Mometasone Furoate-Formoterol (Dulera 100/5 Mcg) 1 Aer Aer 2 PUFFS INH BID PRN for SOB/Wheezing, 5 Refills Montelukast Sodium (Montelukast Sodium) 10 Mg Tab 10 MG PO DAILY, 3 Refills Multivitamins/Minerals (Mvi With Minerals) Tab 1 TAB PO DAILY Polyethylene Glycol 3350 (Miralax) 1 Pow Pow 17 GM PO DAILY PRN for Constipation Tramadol (Ultram) 50 Mg Tab 50 MG PO Q6 PRN for Pain Triamcinolone Acet (Aristocort 0.1%) 90 Appln/30 Gm Cr 1 APPLN PO TID UD, #80 Valacyclovir (Valtrex) 1,000 Mg Tab 1000 MG PO BID PRN for as needed, TAB 10 DAY COURSES Admission Information HPI (per Admitting provider): 51 yo F with chronic chest pain presents with worsening of chest pain associated with palpitations, tingling in her R arm, nausea and some shortness of breath. She has a h/o STEMI s/p PCI to RCA, chronic RCA occlusion per cardiac cath in June of 2015, hypertension, tobacco abuse, noncompliance, diabetes that is uncontrolled and hypercholesterolemia. She was recently seen in the Cards office as an outpatient for chest pains and underwent a stress test that was negative for inducible ischemia. She was given PRN nitro tabs to take for pain which she didn't have at the time; her Imdur was also increased to 60mg recently.She states that after taking the nitro tabs at home, she felt no relief and called EMS. In the ambulance she received 2 more nitro sprays and ASA 325mg, however, she didn't get any relief until she had the fentanyl in the ER. At the time of this interview her pain was at a zero and all of her symptoms listed above had resolved. She also mentioned a headache that had resolved. Physical Exam (per Admitting): GEN: WNWD, in no acute distress, alert and appropriate HEENT: NC/AT, normal sclerae CARDIO: reg rate, S1/2 heard without m/g/r LUNGS: CTA bilaterally, no crackles, rales or wheezes, good diaphragmatic excursion ABD: soft, non-tender, non-distended, no rebound or guarding, +BS EXTREMITY: pulses 2+ bilat, no LE swelling or edema, extremities are warm and well-perfused NEURO: CN 2-12 grossly intact, no gross focal deficits MUSC: 5/5 strength throughout, no focal deficits SKIN: warm and dry Hospital Course Assessment and Plan : 51 yo female with known CAD and chronic RCA occlusion presents with worsening of recent chest pain associated with symptoms that have resolved with Fentanyl. CHEST PAIN: Patient c/o on and off chest pain episodes triggered by arguments with her daughter, self limiting, not necessarily exacerbated by activity. Came with similar episode of chest pain, lasting for 2-3 hours till she received Fentanyl in ED, NTG did not help with relief of pain. Likely related to anxiety as chest pain atypical, Trop x 3 negative, EKG- no acute ischemic changes, Recent stress echocardiogram on 06/19/16 which was negative for acute ischemia. -Risk factors: CAD- h/o STEMI s/p PCI to RCA, chronic RCA occlusion per cardiac cath in June of 2015, DM-II, HTN, HLP, Smoker -EKG- no acute ischemic changes, Troponin x 3 negative. Had a stress test outpatient (few days ago)- negative. -Continue with ASA, Metoprolol 50 mg bid, Lisinopril, Lipitor 80 mg daily, Imdur 60 mg daily -Cardiology consulted- cleared for discharge. No further interventions needed. HX OF STEMI S/P PCI-RCA, chronic RCA occlusion per cath -Per June 2015 cath report -Continue with ASA 81 mg, Metoprolol 50 mg PO BID, Lisinopril, Lipitor 80 mg q HS, Imdur 60 mg daily -Mx as above DM-II -Uncontrolled -ISS, Accuchecks, Lantus HTN- Controlled -Continue with lisinopril, Imdur 60 mg HLP -On lipitor/fenofibrate TOBACCO ABUSE DISORDER Nicotine patch. Motivated to quit. Counseling done DVT PROPHYLAXIS Lovenox 40mg SQ daily FULL CODE DISPOSITION Cleared by cardiology for discharge Okay to discharge home today Total time spent on discharge = 35 minutes This includes examination of the patient, discharge planning, medication reconciliation, and communication with other providers. Discharge Instructions Discharge Diagnosis / Problem: 1. Chest pain, acute myocardial infarction ( heart attack) ruled out Discharge Goals Goal(s): Diagnostic testing, Therapeutic intervention Activity Recommendations Activity Limitations: resume your previous activity . Instructions / Follow-Up Instructions / Follow-Up No changes in medications FOLLOW UP 1. Dr Foster (PCP) 07/02/16 at 11:[address] Monsalve (Cardiology) as per schedule Current Hospital Diet Patient's current hospital diet: AHA Diet (Heart Healthy), Diabetes Type 2 Diet Discharge Diet Recommended Diet: AHA Diet (Heart Healthy), Low Sodium Diet (2gm Na) Pending Studies Studies pending at discharge: no Laboratory Results Hemoglobin A1c Test 06/26/16 08:00 Range/Units Estimated Average Glucose 306 mg/dl Hemoglobin A1c 12.3 H 4.5-5.6 % Lipid Panel Test 06/26/16 08:00 Range/Units Triglycerides Level 528 H 0-150 mg/dl Cholesterol Level 180 0-200 mg/dl HDL Cholesterol 26 mg/dl Cholesterol/HDL Ratio 6.9 LDL Cholesterol, Calculated mg/dl Medical Emergencies . Who to Call and When: Medical Emergencies: If at any time you feel your situation is an emergency, please call 911 immediately. . Non-Emergent Contact Non-Emergency issues call your: Primary Care Provider . . "Provider Documentation" section prepared by Shelly Campos. VTE Core Measure Inpt VTE Proph given/why not?: Enoxaparin (Lovenox)SQ
[2016-06-26 16:34] VITALS: BP 116/69; PULSE 73; TEMP 36.6; O2SAT 93
[2016-06-26] MEDS ORDERED: INSULIN GLARGINE SOLOSTAR 100 UNITS/ML 3 ML PEN SC SCH (21:00)
[2016-06-26] MEDS ORDERED: FENOFIBRATE 48 MG TAB PO SCH (21:00)
[2016-06-26] MEDS ORDERED: ATORVASTATIN 40 MG TAB PO SCH (21:00)
[2016-06-26] MEDS ORDERED: CITALOPRAM 20 MG TAB PO SCH (21:00)
[2016-06-26] MEDS ORDERED: ATORVASTATIN 20 MG TAB PO SCH (21:00)
== END 2016-06-26 17:25 | disposition home or self-care (01) ==
LOC: ENRESERVDT → ENRESERVTM → EDBD 20:27 → C.EDB 20:33 → C.MED 23:13
PROVIDERS: ADMIT Hospitalist; ATTEND Internal Medicine
DX: R07.9 Chest pain, unspecified (principal); I25.10 Atherosclerotic heart disease of native coronary artery without angina pectoris; Z98.61 Coronary angioplasty status; I10 Essential (primary) hypertension; E78.5 Hyperlipidemia, unspecified; E11.65 Type 2 diabetes mellitus with hyperglycemia; A60.09 Herpesviral infection of other urogenital tract; J45.909 Unspecified asthma, uncomplicated; E78.00 Pure hypercholesterolemia, unspecified; D86.9 Sarcoidosis, unspecified; K21.9 Gastro-esophageal reflux disease without esophagitis; F32.9 Major depressive disorder, single episode, unspecified; F17.200 Nicotine dependence, unspecified, uncomplicated; I25.2 Old myocardial infarction; Z85.41 Personal history of malignant neoplasm of cervix uteri; Z90.710 Acquired absence of both cervix and uterus; Z79.4 Long term (current) use of insulin; Z91.19 Patient's noncompliance with other medical treatment and regimen; Z82.49 Family history of ischemic heart disease and other diseases of the circulatory system; Z84.1 Family history of disorders of kidney and ureter; Z83.3 Family history of diabetes mellitus

== ENCOUNTER 2016-11-08 16:41 | Emergency (ER) | payer OTHER ==
[~2016-11-08 16:41] MED LIST changes: +INSDGI SC; -INSDGI SQ; +ISOS30TA35 PO; -MAGN400T6 PO
[2016-11-08 16:50] VITALS: TEMP 36.8; O2SAT 97; Ht 160 cm
[2016-11-08] MEDS ORDERED: SODIUM CHLORIDE 0.9% 1000ML 250 ML IV STA (16:52)
[2016-11-08] MEDS ORDERED: LORAZEPAM 2 MG/ML 1 ML VIAL IV STA (16:52)
--- NOTE | 2016-11-08 17:01 | EMERGENCY ROOM VISIT NOTE ---
History Report prepared by Berry: David Davis Under the Supervision of: Dr. Nelson Hoff M.D. First contact with patient: 16:46 Stated Complaint: ANXIETY/HYPERTENSION History of Present Illness The patient is a 51 year old female who presents to the Emergency Room with complaints of a rapid heart rate that occurred at 1400, three hours prior to arrival. The patient states that she was at her daughter's house today helping baby sit her grandchildren. She notes that there was a conflict, which upset her and made her anxious. She told her daughter she needed to leave immediately and take her Lorazepam along with her fast acting and slow acting nitroglycerin medications due to her heart rate. After taking her medications she took her blood pressure and pulse. These were both elevated, so she phoned for EMS to evaluate her. When EMS arrived her blood pressure and pulse had increased from her initial readings. The patient denies experiencing any chest pain at any time , aside from the rapid heart rate. She also denies any shortness of breath, but does note becoming slightly diaphoretic when she arrived home from her daughter' s house. This diaphoresis lasted for roughly 30 minutes before resolving on its own. The patient had a myocardial infarction in 2011, and has been informed of a new blockage around her cardiac stents. Source of History: patient Onset: 3 hours DIRECTOR OF DISTANCE LEARNING Position: chest Quality: other (Rapid heart rate) Associated Symptoms: + diaphoresis, No chest pain, No SOB Review of Systems See HPI for pertinent positives & negatives. A total of 10 systems reviewed and were otherwise negative. Past Medical & Surgical Medical Problems: (1) Asthma (2) Benign hypertension (3) Chest pain (4) Diabetes mellitus (5) Genital herpes (6) Heart disease (7) Myocardial infarction (8) Placement of stent (9) Sarcoidosis (10) Tobacco abuse Surgical Problems: (1) H/O exploratory laparotomy (2) Previous section (3) S/P TAO-BSO Family History Cancer Diabetes mellitus Hypertension Kidney disease Kidney stones Social History Smoking Status: Current Every Day Smoker Alcohol Use: none Drug Use: none Marital Status: Housing Status: lives alone Occupation Status: disabled Current/Historical Medications Scheduled Aspirin (Aspirin Ec), 81 MG PO DAILY Atorvastatin (Lipitor), 80 MG PO QPM Fenofibrate (Tricor), 48 MG PO QPM Insulin Aspart (Novolog Flexpen), 14 UNITS SQ AC Insulin Glargine (Lantus), 30 SC AMPM Isosorbide Mononitrate Ext Rel (Imdur Ext Rel), 60 MG PO DAILY Lisinopril (Prinivil), 10 MG PO DAILY Metoprolol Tartrate (Lopressor) (Lopressor), 50 MG PO BID Montelukast Sodium (Montelukast Sodium), 10 MG PO DAILY Triamcinolone Acet (Aristocort 0.1%), 1 APPLN PO TID UD Scheduled PRN Albuterol Hfa (Ventolin Hfa), 2 PUFFS INH QID PRN for Shortness of Breath Fluticasone Propionate (Fluticasone Propionate), 2 SPRAYS JV DAILY PRN for CONGESTION Lorazepam (Lorazepam), 1 MG PO DAILY PRN for Anxiety Mometasone Furoate-Formoterol (Dulera 100/5 Mcg), 2 PUFFS INH BID PRN for SOB/ Wheezing Tramadol (Ultram), 50 MG PO Q6 PRN for Pain Valacyclovir Hcl (Valtrex), 1,000 MG PO BID PRN for OUT BREAK FOR 10 DAYS. Allergies Coded Allergies: Sulfamethoxazole w/Trimethoprim (Verified Allergy, Intermediate, N/V/D, ) Adhesives (Verified Allergy, Mild, 11/08/16) Aminoglycosides (Verified Allergy, Unknown, ., 11/08/16) Bacitracin (Verified Allergy, Unknown, ., 11/08/16) Molds & Smuts (Verified Allergy, Unknown, ., 11/08/16) Neomycin (Verified Allergy, Unknown, ., 11/08/16) Polymyxin B (Verified Allergy, Unknown, ., 11/08/16) Physical Exam Vital Signs Date Time Temp Pulse Resp B/P (MAP) Pulse Ox O2 Delivery O2 Flow Rate FiO2 11/08/16 18:29 88 20 127/69 93 Room Air 11/08/16 17:26 85 20 135/77 94 Room Air 11/08/16 17:02 90 11/08/16 16:50 36.8 95 20 165/87 97 Room Air 11/08/16 16:50 97 Room Air Physical Exam GENERAL: Patient is in no acute distress. HEENT: No acute trauma, normocephalic atraumatic, mucous membranes moist, no nasal congestion, no scleral icterus. NECK: No stridor, no adenopathy, no meningismus, trachea is midline. LUNGS: Clear to auscultation bilaterally, no wheeze, no rhonchi, breath sounds equal. HEART: There is a 2/6 systolic murmur appreciated. Regular rate and rhythm. ABDOMEN: Soft, nontender, bowel sounds positive, no hernias, no peritonitis. EXTREMITIES: No cyanosis or edema, full range of motion of all the joints without pain or difficulty, no signs for acute trauma. NEUROLOGIC: Oriented x 3, no acute motor or sensory deficits, no focal weakness. SKIN: No rash, no jaundice, no diaphoresis. Medical Decision & Procedures ER Provider Diagnostic Interpretation: Radiology results as stated below per my review and radiologist interpretation: CHEST ONE VIEW PORTABLE CLINICAL HISTORY: Atypical chest pain, anxiety, hypertension. COMPARISON STUDY: 06/25/2016 FINDINGS: The heart is normal in size. There is persistent interstitial thickening. There is no lobar consolidation. There are no pleural effusions.[ IMPRESSION: Mild interstitial thickening similar to the prior study. No evidence of focal pulmonary consolidation. Electronically signed by: Yared Grover M.D. 11/08/2016 5:13 PM Dictated Date/Time: 11/08/2016 5:13 PM Laboratory Results 11/08/16 17:00 11/08/16 17:00 Test 11/08/16 17:00 11/08/16 19:03 Red Blood Count 4.94 M/uL (4.2-5.4) Mean Corpuscular Volume 88.9 fL (80-100) Mean Corpuscular Hemoglobin 29.6 pg (25-34) Mean Corpuscular Hemoglobin Concent 33.3 g/dl (32-36) RDW Standard Deviation 44.6 fL (36.4-46.3) RDW Coefficient of Variation 13.6 % (11.5-14.5) Mean Platelet Volume 9.2 fL (7.4-10.4) Prothrombin Time 9.6 SECONDS (9.0-12.0) Prothromb Time International Ratio 0.9 (0.9-1.1) Activated Partial Thromboplast Time 26.3 SECONDS (21.0-31.0) Partial Thromboplastin Ratio 1.0 Anion Gap 9.0 mmol/L (3-11) Estimated GFR () 120.2 Estimated GFR (Non- 103.7 BUN/Creatinine Ratio 19.2 (10-20) Calcium Level 9.5 mg/dl (8.5-10.1) Total Bilirubin 0.3 mg/dl (0.2-1) Aspartate Amino Transf (AST/SGOT) 15 U/L (15-37) Alanine Aminotransferase (ALT/SGPT) 27 U/L (12-78) Alkaline Phosphatase 69 U/L (45-117) Total Protein 7.3 gm/dl (6.4-8.2) Albumin 3.4 gm/dl (3.4-5.0) Globulin 3.9 gm/dl (2.5-4.0) Albumin/Globulin Ratio 0.9 (0.9-2) Bedside Troponin I < 0.030 ng/ml (0-0.045) Laboratory results reviewed by me. Medications Administered Medications (Trade) Dose Ordered Sig/Kamryn Route Start Time Stop Time Status Last Admin Dose Admin Sodium Chloride 250 ml @ 999 mls/hr Q16M STAT IV 11/08/16 16:52 11/08/16 17:07 DC 11/08/16 16:52 999 MLS/HR Lorazepam (Ativan Inj) 1 mg NOW STAT IV 11/08/16 16:52 11/08/16 16:56 DC 11/08/16 17:22 1 MG ECG Indication: tachycardia Rate (beats per minute): 88 Rhythm: normal sinus Findings: no acute ischemic change, other (Old inferior and anterior infarct present. ) Comparison ECG Date: 06/26/2016 Change: no significant change ED Course 1649: The patient was evaluated in room A9. A complete history and physical exam was performed. 1651: Ordered Ativan 1 mg IV, Sodium Chloride 250 mL @ 999 mL/hr IV. 1814: I checked on the patient at this time. She was doing well. 1924: Reevaluated the patient. Discussed results and discharge instructions: she verbalized understanding and agreement. The patient is ready for discharge. Medical Decision Differential Diagnosis includes; anxiety, dysrhythmia, heart failure, myocardial infarction, angina, anemia, electrolyte imbalance. There is a mild leukocytosis, this could be consistent with infection or just the stress of her situation. No concerning anemia. No significant electrolyte abnormality, kidney failure or hepatitis. There is no coagulopathy. EKG shows a normal sinus rhythm with some old changes and old infarcts. There was no acute ischemia. The EKG was unchanged compared to previous EKGs. Cardiac enzyme testing 2 does not suggest acute cardiac injury. Chest film shows no mediastinal widening, pneumonia or pneumothorax. The patient presents with anxiety, a higher pulse and increased blood pressure. She did not have any chest pain. She had taken her own Ativan plus some nitroglycerin at home, she was given some additional IV Ativan here in the emergency room. The patient is doing well, her vital signs are reasonable. I think this was more of an anxiety issue than a cardiac issue. She has been reassured, she is being discharged home. Impression Primary Impression: Hypertension Additional Impressions: Tachycardia Anxiety Scribe Attestation The scribe's documentation has been prepared under my direction and personally reviewed by me in its entirety. I confirm that the note above accurately reflects all work, treatment, procedures, and medical decision making performed by me. Departure Information Dispostion Home / Self-Care Referrals Jeremiah Foster M.D. (PCP) Forms HOME CARE DOCUMENTATION FORM, IMPORTANT VISIT INFORMATION, WORK / SCHOOL INSTRUCTIONS Patient Instructions My [facility] Additional Instructions return for worsening symptoms or chest pain see your doctor in follow up this week heart testing today was ok Problem Qualifiers
[2016-11-08 17:14] LABS: HEMATOCRIT 43.9 % (37-47); MEAN CELL VOLUME 88.9 fL (80-100); MEAN CORPUSCULAR HEMOGLOBIN 29.6 pg (25-34); MEAN CORPUSCULAR HGB CONC 33.3 g/dl (32-36); MEAN PLATELET VOLUME 9.2 fL (7.4-10.4); PLATELET COUNT 296 K/uL (130-400); RED BLOOD COUNT 4.94 M/uL (4.2-5.4); WHITE BLOOD COUNT 12.07 K/uL (4.8-10.8)
--- NOTE | 2016-11-08 17:15 | DIAGNOSTIC IMAGING REPORT ---
CHEST ONE VIEW PORTABLE CLINICAL HISTORY: Atypical chest pain, anxiety, hypertension. COMPARISON STUDY: 06/25/2016 FINDINGS: The heart is normal in size. There is persistent interstitial thickening. There is no lobar consolidation. There are no pleural effusions.[ IMPRESSION: Mild interstitial thickening similar to the prior study. No evidence of focal pulmonary consolidation. Electronically signed by: Yared Grover M.D. 11/08/2016 5:13 PM Dictated Date/Time: 11/08/2016 5:13 PM
[2016-11-08] MEDS ORDERED: VNTHFA/IN INH (17:27)
[2016-11-08] MEDS ORDERED: VALA1TAB2 PO (17:27)
[2016-11-08 17:28] LABS: INR 0.9 (0.9-1.1); PROTHROMBIN TIME (PATIENT) 9.6 SECONDS (9.0-12.0)
[2016-11-08 17:34] LABS: ALT/SGPT 27 U/L (12-78); BLOOD UREA NITROGEN 12 mg/dl (7-18); BUN/CREATININE RATIO 19.2 (10-20); CALCIUM 9.5 mg/dl (8.5-10.1); CARBON DIOXIDE 27 mmol/L (21-32); CHLORIDE 104 mmol/L (98-107); CREATININE 0.62 mg/dl (0.60-1.20); GLUCOSE 95 mg/dl (70-99); POTASSIUM 3.6 mmol/L (3.5-5.1); SODIUM 140 mmol/L (136-145)
[2016-11-08 17:37] LABS: ALB/GLOB RATIO 0.9 (0.9-2); ALKALINE PHOSPHATASE 69 U/L (45-117); AST/SGOT 15 U/L (15-37)
[2016-11-08 19:34] VITALS: BP 105/61; PULSE 83; O2SAT 91
== END 2016-11-08 19:36 | disposition home or self-care (01) ==
LOC: EDBD 16:41 → C.EDA 16:42
DX: I10 Essential (primary) hypertension (principal); R00.0 Tachycardia, unspecified; F41.9 Anxiety disorder, unspecified; I25.2 Old myocardial infarction; Z98.61 Coronary angioplasty status; J45.909 Unspecified asthma, uncomplicated; E11.9 Type 2 diabetes mellitus without complications; F17.200 Nicotine dependence, unspecified, uncomplicated; Z98.891 History of uterine scar from previous surgery; Z90.722 Acquired absence of ovaries, bilateral; Z90.79 Acquired absence of other genital organ(s); Z90.710 Acquired absence of both cervix and uterus; Z98.890 Other specified postprocedural states; Z79.82 Long term (current) use of aspirin; Z79.4 Long term (current) use of insulin; Z79.899 Other long term (current) drug therapy

== ENCOUNTER 2017-04-29 14:17 | Emergency (ER) | payer OTHER ==
[~2017-04-29] VITALS: Ht 157.5 cm; Wt 78.0 kg
[~2017-04-29 14:17] MED LIST changes: -ALBUAER19 INH; -CITA20TA9 PO; -MULT-513 PO; -POLY335019 PO; -VALA1TAB PO; +VALA1TAB2 PO; +VNTHFA/IN INH; -VST25HP PO
[2017-04-29 14:31] VITALS: TEMP 36.8; Ht 157.5 cm; Wt 78.0 kg
[2017-04-29 14:52] VITALS: O2SAT 96
[2017-04-29] MEDS ORDERED: CLR10 PO (15:11)
--- NOTE | 2017-04-29 15:35 | DIAGNOSTIC IMAGING REPORT ---
SINGLE VIEW CHEST CLINICAL HISTORY: Generalized weakness. FINDINGS: An AP, portable, upright chest radiograph is compared to study dated 11/08/2016 and correlated with chest CT dated 01/10/2014. The examination is degraded by portable technique and patient rotation. The heart is top normal for projection. The pulmonary mass culture is noncongested. Chronic interstitial thickening is similar to previous. No airspace consolidation or pleural effusion is identified. No pneumothorax is seen. The skeletal structures are osteopenic. The bony thorax is grossly intact. IMPRESSION: No acute cardiopulmonary abnormality. Electronically signed by: Nelson Fairchild M.D. 04/29/2017 3:34 PM Dictated Date/Time: 04/29/2017 3:33 PM
[2017-04-29 15:42] LABS: BASO % 0.3 %; BASO ABS # 0.03 K/uL (0-0.2); EOS % 0.8 %; EOS ABS # 0.09 K/uL (0-0.5); HEMATOCRIT 45.5 % (37-47); HEMOGLOBIN 15.4 g/dL (12.0-16.0); IG# 0.04 K/uL (0.00-0.02); LYMPH % 26.6 %; LYMPH ABS # 3.14 K/uL (1.2-3.4); MEAN CELL VOLUME 88.7 fL (80-100); MEAN CORPUSCULAR HGB CONC 33.8 g/dl (32-36); MEAN PLATELET VOLUME 9.7 fL (7.4-10.4); MONO ABS # 0.59 K/uL (0.11-0.59); NEUT ABS # 7.92 K/uL (1.4-6.5); PLATELET COUNT 361 K/uL (130-400); RED CELL DISTRIBUTION WIDTH CV 13.5 % (11.5-14.5); RED CELL DISTRIBUTION WIDTH SD 43.6 fL (36.4-46.3); WHITE BLOOD COUNT 11.81 K/uL (4.8-10.8)
[2017-04-29 15:53] LABS: INR 0.9 (0.9-1.1); PTT PATIENT 25.6 SECONDS (21.0-31.0)
[2017-04-29 15:56] LABS: ALKALINE PHOSPHATASE 86 U/L (45-117); ALT/SGPT 24 U/L (12-78); AST/SGOT 11 U/L (15-37); BLOOD UREA NITROGEN 14 mg/dl (7-18); CALCIUM 9.4 mg/dl (8.5-10.1); CARBON DIOXIDE 27 mmol/L (21-32); CKMB 0.8 ng/ml (0.5-3.6); CREATININE 0.75 mg/dl (0.60-1.20); GLUCOSE 377 mg/dl (70-99); POTASSIUM 3.9 mmol/L (3.5-5.1); SODIUM 130 mmol/L (136-145); TOTAL PROTEIN 8.1 gm/dl (6.4-8.2)
--- NOTE | 2017-04-29 17:40 | EMERGENCY ROOM VISIT NOTE ---
History Report prepared by Berry: Larry Hagen Under the Supervision of: Dr. Gurmeet Bess D.O. First contact with patient: 15:07 Chief Complaint: CHEST PAIN Stated Complaint: NOT FEELING GOOD, HIGH BP Nursing Triage Summary: Chest discomfort that radiates into the right arm. History of Present Illness The patient is a 51 year old female who presents to the Emergency Room with complaints of a persistent illness that started 3 weeks ago. She states that on April 12, she came down with flu-like symptoms, including a sore throat and headaches. The patient says that she did not have her flu shot, and notes that some of her family members had flu-like symptoms too. She adds that for the past 3 weeks, she has been dealing with her blood pressure going up. She notes that when her blood pressure goes up, she gets right arm pain. The patient states that she has been dealing with her heart racing intermittently as well. She says that her legs swell in the evenings. The patient says that she has not had any chest pain. She notes that she was recently treated for a sinus infection, and was given an antibiotic and finished it a week ago. The patient adds that she is on a medication for her blood pressure. She states that she had a heart attack in 2011, and there is blockage where her stents were placed. The patient is a smoker. Source of History: patient Onset: 3 weeks ago Position: other (global - illness) Timing: other (persistent) Associated Symptoms: + headache, + sorethroat, No chest pain Note: Associated symptoms: Heart racing and right arm pain intermittently. Leg swelling in evenings. High blood pressure. Review of Systems See HPI for pertinent positives & negatives. A total of 10 systems reviewed and were otherwise negative. Past Medical & Surgical Medical Problems: (1) Asthma (2) Benign hypertension (3) Chest pain (4) Diabetes mellitus (5) Genital herpes (6) Heart disease (7) Myocardial infarction (8) Placement of stent (9) Sarcoidosis (10) Tobacco abuse Surgical Problems: (1) H/O exploratory laparotomy (2) Previous section (3) S/P TAO-BSO Family History Cancer Diabetes mellitus Hypertension Kidney disease Kidney stones Social History Smoking Status: Current Every Day Smoker Alcohol Use: none Drug Use: none Marital Status: Housing Status: lives alone Occupation Status: disabled Current/Historical Medications Scheduled Aspirin (Aspirin Ec), 81 MG PO DAILY Atorvastatin (Lipitor), 80 MG PO QPM Fenofibrate (Tricor), 48 MG PO QPM Insulin Aspart (Novolog Flexpen), 14 UNITS SQ AC Insulin Glargine (Lantus), 30 SC AMPM Isosorbide Mononitrate Ext Rel (Imdur Ext Rel), 60 MG PO DAILY Lisinopril (Prinivil), 10 MG PO DAILY Loratadine (Claritin), 10 MG PO DAILY Metoprolol Tartrate (Lopressor) (Lopressor), 50 MG PO BID Montelukast Sodium (Montelukast Sodium), 10 MG PO DAILY Triamcinolone Acet (Aristocort 0.1%), 1 APPLN PO TID UD Scheduled PRN Lorazepam (Lorazepam), 1 MG PO DAILY PRN for Anxiety Valacyclovir Hcl (Valtrex), 1,000 MG PO BID PRN for OUT BREAK FOR 10 DAYS. Allergies Coded Allergies: Molds & Smuts (Verified Allergy, Severe, SNEEZING, WATERY EYES, MAY CAUSE SOB-DEPENDS ON MOLD, 04/29/17) Sulfamethoxazole w/Trimethoprim (Verified Allergy, Severe, "SEVERE GI UPSET", 04/29/17) Adhesives (Verified Allergy, Intermediate, REDNESS, ITCHY, BLISTERS, ) Aminoglycosides (Verified Allergy, Intermediate, ITCHY RASH, 04/29/17) Bacitracin (Verified Allergy, Intermediate, ITCHY RASH, 04/29/17) Neomycin (Verified Allergy, Intermediate, ITCHY RASH, 04/29/17) Polymyxin B (Verified Allergy, Intermediate, ITCHY RASH, 04/29/17) Physical Exam Vital Signs Date Time Temp Pulse Resp B/P (MAP) Pulse Ox O2 Delivery O2 Flow Rate FiO2 04/29/17 17:55 82 20 171/82 97 Room Air 04/29/17 16:05 83 20 169/77 95 Room Air 04/29/17 14:57 90 04/29/17 14:52 89 20 161/117 96 Room Air 04/29/17 14:52 96 Room Air 04/29/17 14:31 36.8 94 20 182/93 97 Room Air Physical Exam CONSTITUTIONAL/VITAL SIGNS: Reviewed / noted above. GENERAL: Non-toxic in appearance. INTEGUMENTARY: Warm, dry, and [place]. HEAD: Normocephalic. EYES: without scleral icterus or trauma. ENT/OROPHARYNX: clear and moist. LYMPHADENOPATHY/NECK: Is supple without lymphadenopathy or meningismus. RESPIRATORY: Lungs clear and equal. CARDIOVASCULAR: Regular rate and rhythm. GI/ABDOMEN: Soft and nontender. No organomegaly or pulsatile mass. No rebound or guarding. Normal bowel sounds. EXTREMITIES: Warm and well perfused. BACK: No CVA tenderness. NEUROLOGICAL: Intact without focal deficits. PSYCHIATRIC: normal affect. MUSCULOSKELETAL: Normally developed with good muscle tone. Medical Decision & Procedures ER Provider Diagnostic Interpretation: X ray results and stated below per my interpretation and radiology interpretation. SINGLE VIEW CHEST CLINICAL HISTORY: Generalized weakness. FINDINGS: An AP, portable, upright chest radiograph is compared to study dated 11/08/2016 and correlated with chest CT dated 01/10/2014. The examination is degraded by portable technique and patient rotation. The heart is top normal for projection. The pulmonary mass culture is noncongested. Chronic interstitial thickening is similar to previous. No airspace consolidation or pleural effusion is identified. No pneumothorax is seen. The skeletal structures are osteopenic. The bony thorax is grossly intact. IMPRESSION: No acute cardiopulmonary abnormality. Electronically signed by: Nelson Fairchild M.D. 04/29/2017 3:34 PM Dictated Date/Time: 04/29/2017 3:33 PM Laboratory Results 04/29/17 14:53 Red Blood Count 5.13, Mean Corpuscular Volume 88.7, Mean Corpuscular Hemoglobin 30.0, Mean Corpuscular Hemoglobin Concent 33.8, Mean Platelet Volume 9.7, Neutrophils (%) (Auto) 67.0, Lymphocytes (%) (Auto) 26.6, Monocytes (%) (Auto) 5.0, Eosinophils (%) (Auto) 0.8, Basophils (%) (Auto) 0.3, Neutrophils # (Auto) 7.92, Lymphocytes # (Auto) 3.14, Monocytes # (Auto) 0.59, Eosinophils # (Auto) 0.09, Basophils # (Auto) 0.03 04/29/17 14:53 Test 04/29/17 14:53 White Blood Count 11.81 K/uL (4.8-10.8) Red Blood Count 5.13 M/uL (4.2-5.4) Hemoglobin 15.4 g/dL (12.0-16.0) Hematocrit 45.5 % (37-47) Mean Corpuscular Volume 88.7 fL (80-100) Mean Corpuscular Hemoglobin 30.0 pg (25-34) Mean Corpuscular Hemoglobin Concent 33.8 g/dl (32-36) Platelet Count 361 K/uL (130-400) Mean Platelet Volume 9.7 fL (7.4-10.4) Neutrophils (%) (Auto) 67.0 % Lymphocytes (%) (Auto) 26.6 % Monocytes (%) (Auto) 5.0 % Eosinophils (%) (Auto) 0.8 % Basophils (%) (Auto) 0.3 % Neutrophils # (Auto) 7.92 K/uL (1.4-6.5) Lymphocytes # (Auto) 3.14 K/uL (1.2-3.4) Monocytes # (Auto) 0.59 K/uL (0.11-0.59) Eosinophils # (Auto) 0.09 K/uL (0-0.5) Basophils # (Auto) 0.03 K/uL (0-0.2) RDW Standard Deviation 43.6 fL (36.4-46.3) RDW Coefficient of Variation 13.5 % (11.5-14.5) Immature Granulocyte % (Auto) 0.3 % Immature Granulocyte # (Auto) 0.04 K/uL (0.00-0.02) Prothrombin Time 9.6 SECONDS (9.0-12.0) Prothromb Time International Ratio 0.9 (0.9-1.1) Activated Partial Thromboplast Time 25.6 SECONDS (21.0-31.0) Partial Thromboplastin Ratio 1.0 Anion Gap 7.0 mmol/L (3-11) Est Creatinine Clear Calc Drug Dose 84.9 ml/min Estimated GFR () 106.2 Estimated GFR (Non- 91.6 BUN/Creatinine Ratio 19.1 (10-20) Calcium Level 9.4 mg/dl (8.5-10.1) Total Bilirubin 0.5 mg/dl (0.2-1) Aspartate Amino Transf (AST/SGOT) 11 U/L (15-37) Alanine Aminotransferase (ALT/SGPT) 24 U/L (12-78) Alkaline Phosphatase 86 U/L (45-117) Total Creatine Kinase 60 U/L (26-192) Creatine Kinase MB 0.8 ng/ml (0.5-3.6) Creatine Kinase MB Ratio 1.3 (0-3.0) Troponin I < 0.015 ng/ml (0-0.045) Total Protein 8.1 gm/dl (6.4-8.2) Albumin 4.0 gm/dl (3.4-5.0) Globulin 4.1 gm/dl (2.5-4.0) Albumin/Globulin Ratio 1.0 (0.9-2) Beta-Hydroxybutyric Acid 4.48 mg/dL (0.2-2.81) Laboratory results as stated above per my review. ECG Indication: chest pain Rate (beats per minute): 84 Rhythm: normal sinus Findings: no ectopy, other (no acute injury) Change: no significant change (compared to 11/08/16) ED Course 1510: Previous medical records were reviewed. The patient was evaluated in room C9. A complete history and physical examination was performed. Medical Decision Differential includes acute coronary syndrome, myocardial infarction, CVA, TIA, anemia, infection, pneumonia, UTI, pyelonephritis, poor nutrition, dehydration, electrolyte disturbance,hypoglycemia. This is a 51-year-old female who presents to the ED with a chief complaint of not feeling well for the past several weeks. She states that her blood pressure has been running high and she states that when her blood pressure is high her right arm starts to hurt. She also reports having flu symptoms and the end of March. She recently was treated for sinus infection. The antibiotics did not seem to help her symptoms. She states that her heart rate of only feels like it races. She did not take her blood pressure medication or any of her morning meds today. She states she has history of an DC in 2011 with a blocked stent that is currently on treatable. She denies any chest pains or shortness of breath. No fevers. No abdominal pains. Initial blood pressure was elevated. Exam is unremarkable. EKG shows a normal sinus rhythm without acute injury or ectopy. CBC is unremarkable, troponin is negative, complete metabolic panel was unremarkable, chest x-ray was negative for acute disease. Glucose was 377. The patient was told the results of the test. She was given regular insulin 4 units subcutaneous. She was felt to be stable for discharge and outpatient follow-up. Medication Reconcilliation Current Medication List: was personally reviewed by me Blood Pressure Screening Patient's blood pressure: Elevated blood pressure Blood pressure disposition: Referred to PCP Impression Primary Impression: Palpitations Additional Impression: Malaise and fatigue Scribe Attestation The scribe's documentation has been prepared under my direction and personally reviewed by me in its entirety. I confirm that the note above accurately reflects all work, treatment, procedures, and medical decision making performed by me. Departure Information Dispostion Home / Self-Care Referrals Jeremiah Foster M.D. (PCP) Patient Instructions My [facility] Problem Qualifiers
[2017-04-29 17:55] VITALS: BP 171/82; PULSE 82; O2SAT 97
== END 2017-04-29 17:56 | disposition home or self-care (01) ==
LOC: C.EDB 14:19 → C.EDC 17:56
DX: R53.81 Other malaise (principal); R00.2 Palpitations; I25.2 Old myocardial infarction; Z95.5 Presence of coronary angioplasty implant and graft; F17.210 Nicotine dependence, cigarettes, uncomplicated; J45.909 Unspecified asthma, uncomplicated; I10 Essential (primary) hypertension; E11.9 Type 2 diabetes mellitus without complications; Z83.3 Family history of diabetes mellitus; Z90.710 Acquired absence of both cervix and uterus; Z80.9 Family history of malignant neoplasm, unspecified; Z82.49 Family history of ischemic heart disease and other diseases of the circulatory system; Z84.1 Family history of disorders of kidney and ureter; Z79.82 Long term (current) use of aspirin; Z79.4 Long term (current) use of insulin; Z79.899 Other long term (current) drug therapy

== ENCOUNTER 2017-05-20 19:18 | Emergency (ER) | payer OTHER ==
[~2017-05-20] VITALS: Ht 160 cm; Wt 78.1 kg
[~2017-05-20 19:18] MED LIST changes: +CLR10 PO; -FLNIN/ NAE; -MOME100A INH; -TRAM-10 PO; -VNTHFA/IN INH
[2017-05-20 19:36] VITALS: TEMP 36.9; Ht 160 cm; Wt 78.1 kg
[2017-05-20] MEDS ORDERED: ATV5X PO (21:34)
[2017-05-20] MEDS ORDERED: EMPA1TAB3 PO (21:34)
--- NOTE | 2017-05-20 21:45 | EMERGENCY ROOM VISIT NOTE ---
History First contact with patient: 21:32 Chief Complaint: URINARY SYMPTOMS Stated Complaint: POSSIBLE UTI,BLEEDING WHEN URINATING Nursing Triage Summary: Pt complains of urinary frequency for a week. Now pt having urinary burning, blood in urine and back pain. History of Present Illness The patient is a 51 year old female who presents to the Emergency Room with complaints of "possible urinary tract infection". The patient states for approximately the past week, she has been experiencing urinary frequency, hesitancy, dysuria, and pelvic pressure. She states today, she noticed she began experiencing severe abdominal and back pain. She also noticed gross hematuria in the toilet and while she wipes today. She states she does have a history of hysterectomy, so is unaware of why she may have hematuria. She denies any fever, chills, nausea, vomiting, or vaginal bleeding. There has been no bleeding in between urinating. She does not notice blood in her underwear. The patient has not been treated for the urinary tract infection, nor has she been taking any OTC medications. She does have a history of diabetes, and her blood sugar has been uncontrolled. Review of Systems A complete 10 point review of systems was reviewed with the patient with pertinent positives and negatives as per history of present illness. All else were negative. Past Medical/Surgical History Medical Problems: (1) Asthma (2) Benign hypertension (3) Chest pain (4) Diabetes mellitus (5) Genital herpes (6) Heart disease (7) Myocardial infarction (8) Placement of stent (9) Sarcoidosis (10) Tobacco abuse Surgical Problems: (1) H/O exploratory laparotomy (2) Previous section (3) S/P TAO-BSO Family History Cancer Diabetes mellitus Hypertension Kidney disease Kidney stones Social History Smoking Status: Current Every Day Smoker Alcohol Use: none Drug Use: none Marital Status: Housing Status: lives alone Occupation Status: disabled Current/Historical Medications Scheduled Aspirin (Aspirin Ec), 81 MG PO DAILY Atorvastatin (Lipitor), 80 MG PO QPM Ciprofloxacin Hcl (Cipro), 500 MG PO BID Empagliflozin (Jardiance), 25 MG PO DAILY Fenofibrate (Tricor), 48 MG PO QPM Gabapentin (Gabapentin), 100 MG PO BID Insulin Aspart (Novolog Flexpen), 14 UNITS SQ AC Insulin Glargine (Lantus), 35 UNITS SC AMPM Isosorbide Mononitrate Ext Rel (Imdur Ext Rel), 60 MG PO DAILY Lisinopril (Prinivil), 20 MG PO DAILY Loratadine (Claritin), 10 MG PO DAILY Metoprolol Tartrate (Lopressor) (Lopressor), 50 MG PO BID Triamcinolone Acet (Aristocort 0.1%), 1 APPLN PO TID UD Scheduled PRN Lorazepam (Lorazepam), 0.5 MG PO BID PRN for Anxiety Valacyclovir Hcl (Valtrex), 1,000 MG PO BID PRN for OUT BREAK FOR 10 DAYS. Physical Exam Vital Signs Date Time Temp Pulse Resp B/P (MAP) Pulse Ox O2 Delivery O2 Flow Rate FiO2 05/21/17 01:19 84 20 137/72 97 05/21/17 00:33 80 20 140/82 98 Room Air 05/20/17 19:36 36.9 92 16 157/101 97 Room Air Physical Exam VITALS: Vitals are noted on the nurse's note and reviewed by myself. Vital signs stable. GENERAL: This is a 51-year-old white female, in no acute distress, nondiaphoretic, well-developed well-nourished. SKIN: The skin was without rashes, erythema, edema, or bruising. There is no tenting of the skin. Capillary reflex less than 2 seconds. HEAD: Normocephalic atraumatic. EARS: External auditory canals clear, tympanic membranes pearly farah without erythema or effusion bilaterally. EYES: Pupils equal round and reactive to light and accommodation. Conjunctivae without injection, sclerae without icterus. Extraocular movements intact. NOSE: Patent, turbinates without inflammation or discharge. No sinus tenderness. MOUTH: Mucous membranes moist. Tonsils are not enlarged. Pharynx without erythema or exudate. Uvula midline. Airway patent. Tongue does not deviate. NECK: Supple without nuchal rigidity. No lymphadenopathy. No thyromegaly. Cervical spine is nontender. No JVD. HEART: Regular rate and rhythm without murmurs gallops or rubs. LUNGS: Clear to auscultation bilaterally without wheezes, rales or rhonchi. No dullness to percussion. No retractions or accessory muscle use. ABDOMEN: Positive bowel sounds x 4. Normal tympanic percussion. The abdomen is diffusely tender on palpation. Soft, without masses or organomegaly. Reina sign negative. No guarding or rebound tenderness. Positive CVA tenderness bilaterally. MUSCULOSKELETAL: No muscle atrophy, erythema, or edema noted. Full range of motion without joint tenderness in all extremities. No tenderness to palpation. Normal gait. Strength 5/5 throughout. NEURO: Patient was alert and oriented to person place and time. Normal sensation to light and sharp touch. Deep tendon reflexes 2+ throughout. No focal neurological deficits. Medical Decision & Procedures ER Provider Diagnostic Interpretation: US Renal, reviewed by myself and [facility]: 2.4 hypoechoic lesion with echogenic rim within mid left kidney. Minimal prominence of left collecting system. No overt hydronephrosis. Incidental note of hepatomegaly and hepatic steatosis. 5.2 cm hypoechoic lesion within the liver with peripheral vascularity is nonspecific. I did contact [facility] radiologist, Dr. Mathur, who read the ultrasound, and he did compare ultrasound findings to CT findings in 2015 and both lesions on the liver and kidney were consistent with previous findings of hemangioma and renal cyst. Laboratory Results 05/20/17 22:25 Red Blood Count 4.93, Mean Corpuscular Volume 90.7, Mean Corpuscular Hemoglobin 30.0, Mean Corpuscular Hemoglobin Concent 33.1, Mean Platelet Volume 9.5, Neutrophils (%) (Auto) 66.3, Lymphocytes (%) (Auto) 25.6, Monocytes (%) (Auto) 6.8, Eosinophils (%) (Auto) 0.7, Basophils (%) (Auto) 0.3, Neutrophils # (Auto) 10.09, Lymphocytes # (Auto) 3.90, Monocytes # (Auto) 1.03, Eosinophils # (Auto) 0.11, Basophils # (Auto) 0.05 05/20/17 22:25 Test 05/20/17 21:10 05/20/17 22:25 Urine Color YELLOW Urine Appearance CLOUDY (CLEAR) Urine pH 5.5 (4.5-7.5) Urine Specific [place] 1.020 (1.000-1.030) Urine Protein 1+ (NEG) Urine Glucose (UA) TRACE (NEG) Urine Ketones TRACE (NEG) Urine Occult Blood 3+ (NEG) Urine Nitrite POS (NEG) Urine Bilirubin NEG (NEG) Urine Urobilinogen NEG (NEG) Urine Leukocyte Esterase SMALL (NEG) Urine RBC 5-10 /hpf (0-4) Urine WBC >30 /hpf (0-5) Urine Epithelial Cells 0-5 /lpf (0-5) Urine Bacteria 1+ (NEG) White Blood Count 15.22 K/uL (4.8-10.8) Red Blood Count 4.93 M/uL (4.2-5.4) Hemoglobin 14.8 g/dL (12.0-16.0) Hematocrit 44.7 % (37-47) Mean Corpuscular Volume 90.7 fL (80-100) Mean Corpuscular Hemoglobin 30.0 pg (25-34) Mean Corpuscular Hemoglobin Concent 33.1 g/dl (32-36) Platelet Count 382 K/uL (130-400) Mean Platelet Volume 9.5 fL (7.4-10.4) Neutrophils (%) (Auto) 66.3 % Lymphocytes (%) (Auto) 25.6 % Monocytes (%) (Auto) 6.8 % Eosinophils (%) (Auto) 0.7 % Basophils (%) (Auto) 0.3 % Neutrophils # (Auto) 10.09 K/uL (1.4-6.5) Lymphocytes # (Auto) 3.90 K/uL (1.2-3.4) Monocytes # (Auto) 1.03 K/uL (0.11-0.59) Eosinophils # (Auto) 0.11 K/uL (0-0.5) Basophils # (Auto) 0.05 K/uL (0-0.2) RDW Standard Deviation 45.9 fL (36.4-46.3) RDW Coefficient of Variation 13.9 % (11.5-14.5) Immature Granulocyte % (Auto) 0.3 % Immature Granulocyte # (Auto) 0.04 K/uL (0.00-0.02) Anion Gap 7.0 mmol/L (3-11) Est Creatinine Clear Calc Drug Dose 103.3 ml/min Estimated GFR () 119.5 Estimated GFR (Non- 103.1 BUN/Creatinine Ratio 24.0 (10-20) Calcium Level 9.5 mg/dl (8.5-10.1) Medications Administered Medications (Trade) Dose Ordered Sig/Kamryn Route Start Time Stop Time Status Last Admin Dose Admin Ketorolac Tromethamine (Toradol Inj) 30 mg NOW STAT IV 2/1/18 22:11 05/20/17 22:12 DC 05/20/17 22:27 30 MG Ceftriaxone Sodium (Rocephin Inj) 1 gm NOW STAT IV 05/20/17 23:56 05/20/17 23:58 DC 05/21/17 00:33 1 GM Sodium Chloride 1,000 ml @ 999 mls/hr Q1H1M STAT IV 05/20/17 23:56 05/21/17 00:56 DC 05/21/17 00:33 999 MLS/HR ED Course The patient was seen and evaluated as above. IV access obtained, labs drawn. Urinalysis was reviewed by myself. The stitches signs of urinary tract infection. The patient did request pain medication, and was given 30 mg Toradol IV. Renal ultrasound ordered and performed. This was reviewed by kera. I did discuss the case with [facility] radiologist. The patient was given 1 L normal saline solution and 1 g of Rocephin IV. The case was reviewed with Dr. Osullivan. The patient will be started on outpatient antibiotics and encouraged to follow up with her PCP. Discharge instructions reviewed, the patient was discharged home in good condition. Medical Decision This is a 51-year-old female patient presents to the emergency department complaining of urinary tract infection symptoms 1 week. She did experience hematuria which began today, in addition to worsening abdominal and flank pain. Urinalysis did show urinary tract infection, with positive nitrites and bacteria. Blood counts did show leukocytosis of 15,000. PRP showed creatinine of 0.6, and elevated glucose of 194. This glucose finding is consistent with her previous testing performed approximately one month ago. Ultrasound did not show signs of abscess or pyelonephritis. The patient was treated with IV antibiotics and will be discharged home on antibiotics outpatient. She was encouraged to follow up closely with her PCP. I did discuss the case with Dr. Osullivan, who was in agreement with the assessment and plan. Etiologies such as renal colic, pyelonephritis, appendicitis, diverticulitis, mesenteric ischemia, aortic pathology, infections, inflammatory bowel disease, PUD, biliary pathology, UTI, as well as others were entertained. Medication Reconcilliation Current Medication List: was personally reviewed by me Blood Pressure Screening Patient's blood pressure: Normal blood pressure Blood pressure disposition: Elevated BP felt to be situational (initial BP elevated.) Impression Primary Impression: Urinary tract infection Departure Information Dispostion Home / Self-Care Condition GOOD Prescriptions Ciprofloxacin Hcl (CIPRO) 500 Mg Tab 500 MG PO BID for 10 Days, #20 TAB Prov: Abbie Cruz PA-C 05/21/17 Referrals Jeremiah Foster M.D. (PCP) Patient Instructions ED UTI Cystitis Female, My [facility] Additional Instructions You have been treated in the Emergency Department for a Urinary Tract Infection (UTI). You have been prescribed ciprofloxacin to be taken twice daily for 10 days. This is an antibiotic. All antibiotics have the potential to cause diarrhea. Stop this medication and contact a medical provider if you were to develop any significant adverse side effects including: wheezing, shortness of breath, passing out, vomiting, or a diffuse rash. Always take antibiotics as directed and COMPLETE the ENTIRE course regardless of the improvement of your symptoms. Ibuprofen(Motrin, Advil) may be used for fever or pain. Use 600mg every six hours as needed. Take with food. Avoid using more than 2400mg in a 24 hour period. Do not use 2400mg per day for more than three consecutive days without physician direction. Prolonged inappropriate use can lead to stomach upset or ulcers. (AND/OR) Acetaminophen(Tylenol) may be used for fever or pain. Use 1000mg every six hours as needed. Avoid using more than 3000mg in a 24 hour period. As discussed, lesions were noted on the liver and left kidney. These do appear stable from 2015. You should continue to monitor these with your primary care provider and/or specialists. Drink plenty of water and stay well hydrated. As with any trip to the Emergency Department, you should follow-up with your Primary Care Provider from today's visit. Return to the emergency department if your symptoms persist despite treatment plan outlined above or if the following symptoms occur: increased fevers, chills , low back pain, nausea/vomiting, or blood in your urine. Problem Qualifiers Primary Impression: Urinary tract infection Urinary tract infection type: acute cystitis Hematuria presence: with hematuria Qualified Codes: N30.01 - Acute cystitis with hematuria
[2017-05-20] MEDS ORDERED: KETOROLAC TROMETHAMINE 30 MG/ML VIAL IV STA (22:11)
[2017-05-20] MEDS ORDERED: NRN100 PO (22:34)
[2017-05-20 23:09] LABS: BASO % 0.3 %; BASO ABS # 0.05 K/uL (0-0.2); EOS % 0.7 %; EOS ABS # 0.11 K/uL (0-0.5); HEMATOCRIT 44.7 % (37-47); HEMOGLOBIN 14.8 g/dL (12.0-16.0); IG# 0.04 K/uL (0.00-0.02); LYMPH % 25.6 %; MEAN CELL VOLUME 90.7 fL (80-100); MEAN CORPUSCULAR HGB CONC 33.1 g/dl (32-36); MEAN PLATELET VOLUME 9.5 fL (7.4-10.4); MONO % 6.8 %; MONO ABS # 1.03 K/uL (0.11-0.59); NEUT % 66.3 %; NEUT ABS # 10.09 K/uL (1.4-6.5); PLATELET COUNT 382 K/uL (130-400); RED CELL DISTRIBUTION WIDTH CV 13.9 % (11.5-14.5); RED CELL DISTRIBUTION WIDTH SD 45.9 fL (36.4-46.3); WHITE BLOOD COUNT 15.22 K/uL (4.8-10.8)
[2017-05-20 23:16] LABS: CALCIUM 9.5 mg/dl (8.5-10.1); CREATININE 0.63 mg/dl (0.60-1.20); POTASSIUM 3.9 mmol/L (3.5-5.1)
[2017-05-20] MEDS ORDERED: SODIUM CHLORIDE 0.9% 1000ML 1,000 ML IV STA (23:56)
[2017-05-20] MEDS ORDERED: CEFTRIAXONE SOD INJ 1 GM ADDVIAL IV STA (23:56)
[2017-05-21] MEDS ORDERED: CIPR-255 PO (01:02)
[2017-05-21 01:19] VITALS: BP 137/72; PULSE 84; O2SAT 97
--- NOTE | 2017-05-21 07:48 | DIAGNOSTIC IMAGING REPORT ---
RENAL ULTRASOUND HISTORY: bilateral flank pain, abdominal pain, untreated UTI x1 week COMPARISON: Abdomen and pelvis CT 01/25/2015. FINDINGS: Right kidney: 13.0 cm. No hydronephrosis. Normal corticomedullary differentiation and cortical thickness. Left kidney: 11.8 cm. Mild fullness within the left renal collecting system without kelvin hydronephrosis. Normal corticomedullary differentiation and cortical thickness. There is a 2.4 cm hypoechoic lesion within the interpolar region of the left kidney. This previously measured 1.7 cm. This likely represents a cyst. This appears to contain a septation. Bladder: Not well distended. The bilateral ureteral jets are not identified. Miscellaneous: A 5.2 x 4.0 x 3.5 cm hypoechoic mass within the inferior aspect of the right hepatic lobe demonstrating increased peripheral vascularity. This is stable in size compared to the [address] Although indeterminate by ultrasound the stability favors a benign lesion. IMPRESSION: 1. Normal right kidney. 2. Mild fullness within the left renal collecting system without kelvin hydronephrosis. 3. A 2.4 cm left renal lesion which favors a cyst. This appears to contain a thin septation. Follow-up renal MRI can be used for confirmation. 4. A 5.2 x 4.0 3.5 cm hypoechoic mass within the right hepatic lobe which is stable compared to the [address] Although indeterminate by ultrasound the stability favors a benign lesion. Electronically signed by: Ziggy Huffman M.D. 05/21/2017 7:47 AM Dictated Date/Time: 05/21/2017 7:40 AM
== END 2017-05-21 01:21 | disposition home or self-care (01) ==
LOC: C.EDB 19:20 → C.EDA 05-21 01:21
DX: N30.01 Acute cystitis with hematuria (principal); J45.909 Unspecified asthma, uncomplicated; I10 Essential (primary) hypertension; E11.9 Type 2 diabetes mellitus without complications; D86.9 Sarcoidosis, unspecified; F17.200 Nicotine dependence, unspecified, uncomplicated; I25.2 Old myocardial infarction; Z98.890 Other specified postprocedural states; Z98.891 History of uterine scar from previous surgery; Z90.710 Acquired absence of both cervix and uterus; Z90.79 Acquired absence of other genital organ(s); Z90.722 Acquired absence of ovaries, bilateral; Z83.3 Family history of diabetes mellitus; Z82.49 Family history of ischemic heart disease and other diseases of the circulatory system; Z84.1 Family history of disorders of kidney and ureter; Z79.4 Long term (current) use of insulin; Z79.82 Long term (current) use of aspirin; Z79.899 Other long term (current) drug therapy

== ENCOUNTER 2018-10-11 11:07 | Inpatient (IN) ==
--- OUTSIDE RECORDS SUMMARY | 2018-10-11 11:11 | External Medical Summary | Continuity of Care Document ---
:1965 Author Name Doreen Powell Address Unavailable Unavailable , Care Team Providers Name Role Phone Raimundo Rahman [email or web address] PCP, UNKNOWN Unavailable Unavailable Problems Active medical history not documented Allergies and Adverse Reactions Allergy history not documented Medications Medications not documented Procedures Procedures not documented Immunizations Immunizations not documented Plan of Treatment Planned Observations Planned Goals not documented Results No Known Results Results not documented
[2018-10-11] MEDS ORDERED: ALBUT/IPRATROP 3MG/0.5MG NEB 3 ML VIAL NEB STA (12:09)
[2018-10-11] MEDS ORDERED: methylPREDNISolone 125 MG/2 ML VIAL IV STA (12:09)
[2018-10-11 12:10] LABS: Basophils # (auto) 0.04 K/uL (0-0.2); Basophils % (auto) 0.4 %; Eosinophils # (auto) 0.07 K/uL (0-0.5); Eosinophils % (auto) 0.7 %; Hematocrit (blood only) 43.4 % (37-47); Hemoglobin 14.6 g/dL (12.0-16.0); Immature Granulocytes # (auto) 0.03 K/uL (0.00-0.02); Immature Granulocytes % (auto) 0.3 %; Lymphocytes # (auto) 2.64 K/uL (1.2-3.4); Lymphocytes % (auto) 25.8 %; Mean Corpuscular Hgb Conc 33.6 g/dL (32-36); Mean Corpuscular Volume 88.8 fL (80-100); Mean Platelet Volume 9.5 fL (7.4-10.4); Monocytes # (auto) 0.48 K/uL (0.11-0.59); Monocytes % (auto) 4.7 %; Neutrophils # (auto) 6.99 K/uL (1.4-6.5); Neutrophils % (auto) 68.1 %; Platelet Count 356 K/uL (130-400); RDW Coefficient of Variation 14.4 % (11.5-14.5); RDW Standard Deviation 46.4 fL (36.4-46.3); Red Blood Count 4.89 M/uL (4.2-5.4); White Blood Count 10.25 K/uL (4.8-10.8)
[2018-10-11] MEDS ORDERED: SODIUM CHLORIDE 0.9% 500 ML IV SCH (12:15)
[2018-10-11 12:21] LABS: Albumin Level 3.7 gm/dl (3.4-5.0); BUN Creatinine Ratio 18.5 (10-20); Calcium 9.6 mg/dl (8.5-10.1); Creatinine Clr Calc Pharmacy 90.8 ml/min; Est GFR (African American) 114.4; Est GFR (Non-African American) 98.7; Magnesium 1.8 mg/dl (1.8-2.4); Potassium 4.1 mmol/L (3.5-5.1)
[2018-10-11 12:26] LABS: Albumin Globulin Ratio 0.9 (0.9-2); Bilirubin,Total 0.6 mg/dl (0.2-1); Globulin 4.1 gm/dl (2.5-4.0); Total Protein 7.8 gm/dl (6.4-8.2)
[2018-10-11 12:30] LABS: Troponin I 0.066 ng/ml (0-0.045)
[2018-10-11 12:31] LABS: Beta-Hydroxybutyrate 6.85 mg/dl (0.2-2.81)
--- NOTE | 2018-10-11 12:46 | XRay Report ---
XR chest 1V portable CLINICAL HISTORY: Atypical chest pain COMPARISON STUDY: 09/23/2017 FINDINGS: The heart is enlarged. There is radiographic evidence of congestive failure/fluid overload. There is mild interstitial edema. There are small bilateral pleural effusions. Basilar opacities are likely atelectatic.[ IMPRESSION: Interval development of congestive failure/fluid overload with small bilateral pleural ef fusions Electronically signed by: Yared Grover M.D. 10/11/2018 12:45 PM
[2018-10-11] MEDS ORDERED: OPTIRAY 320 125ml IV PRN (14:01)
--- NOTE | 2018-10-11 14:14 | CT Scan Report ---
CT angio chest PE protocol CT DOSE: 535.83 mGy.cm HISTORY: Chest pain. Dyspnea. PE TECHNIQUE: Multiaxial CT images of the chest were performed following the intravenous administration of contrast to evaluate the pulmonary arteries. Maximal intensity projection images were also obtaine d. A dose lowering technique was utilized adhering to the principles of ALARA. COMPARISON STUDY: 01/10/2014 FINDINGS: Findings of congestive heart failure persist. There are bilateral pleural effusions. There are pre-existing pleural plaques left lung base. Mild dependent bibasilar atelectasis. Evaluation of pulmonary vasculature shows normal enhancement characteristics throughout. There are no significant or fixed filling defects. Thoracic aorta within limitations of unenhanced and at that lo cation to be unremarkable. IMPRESSION: 1. No evidence of pulmonary embolus. 2. Congestive heart failure with findings of bilateral pleural effusions. The above report was generated using voice recognition software. It may contain grammatical, syntax or spelling errors. Electronically signed by: Gregorio Yeager M.D. 10/11/2018 2:13 PM
[2018-10-11] MEDS ORDERED: FUROSEMIDE 40 MG/4 ML VIAL IV STA (14:33)
[2018-10-11] MEDS ORDERED: FUROSEMIDE 20 MG in SYRINGE 0 ML IV STA (15:37)
[2018-10-11] MEDS ORDERED: DEXTROSE 50% 50 ML SYRINGE IV PRN (16:58)
[2018-10-11] MEDS ORDERED: NITROGLYCERIN SL 0.4 MG/TAB TAB SL PRN (16:58)
[2018-10-11] MEDS ORDERED: GLUCAGON FOR INJ 1 MG VIAL SQ PRN (16:58)
[2018-10-11] MEDS ORDERED: GLUCOSE 10 TABS/TUBE PO PRN (16:58)
[2018-10-11] MEDS ORDERED: GLUCOSE 40% GEL 15 GM TUBE PO PRN (16:58)
[2018-10-11] MEDS ORDERED: CARBOHYDRATES FOR HYPOGLYCEMIA PO PRN (16:58)
[2018-10-11] MEDS ORDERED: PHARMACY GLYCEMIC MGMT CONSULT PRN (17:13)
--- NOTE | 2018-10-11 17:18 | History & Physical Report ---
Date of Service October 11, 2018 Assessment & Plan (1) CHF (congestive heart failure): Present on admission with worsening SOB CXR on admission interval development of congestive failure/fluid overload with small bilateral pleural effusions CTA chest showed congestive heart failure with findings of bilateral pleural effusions. No evidence of PE BNP on admission 3592 Received Lasix 20mg IVx 1 in the ER, additional lasix 20mg given Will consult cardiology Will get an echo Will assess in am for additional diuretic MonitorBMP in am (2) Elevated troponin: Possible related to demand ischemia due to acute CHF Troponin on admission 0.066 Will trend troponin EKG showed no significant changes when compared to the previous EKG Continue aspirin, metoprolol and statin Follow up echo (3) CAD (coronary artery disease): Non compliant Pressure like chest discomfort n admission Continue aspirin/statin/metoprolol Continue monitor (4) Diabetes type 2, uncontrolled: Non compliant with insulin/and oral med Has not been taking her diabetes med for over 1 week Last HbA1c 11 on 09/04 Will resume home dose insulin On insulin sliding scale Pharmacy consult for glycemic management Monitor BS (5) Tobacco abuse: Counseling on smoking cessation Consider to add nicotine patch once r/o acs (6) Asthma: Has not been taking her inhaler Dulera/singular/Ventolin Received solumedrol 125 mg IVx 1 in the ER Will hold on additional steroid Will add duoneb prn (7) Anxiety: Continue Celexa 20mg daily On Ativan 0.5 mg prn BID (8) HTN (hypertension): BP fluctuates Continue Lisinopril/metoprolol and imdur Continue monitor BP DVT px on heparin subq Code Status Full CODE History of Present Illness Chief Complaint: Worsening SOB Primary Care Provider: Jeremiah Foster MD 53 yo female very non compliant with PMH of DM, HTN, dyslipidemia, anxiety, tobacco abuse HTN, depression, CAD s/p inferior STEMI PCI to RCA in 2011 present to the ER for worsening SOB for the past 2 weeks. Pt said that she has been having SOB with minimal exertion associated with pressure in her chest. She said that she feels like there is an elephant sitting in her chest. Pt said she has been having orthopnea and waking up in the middle of the night gasping for air. Pt said that she has not been taking her medications for over a week. 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 She has not been taking her insulin also. She said that she has been feeling very thirsty and has been drinking a lot of water. Her last Hba1c was 11 on 08/30/18. She said that she stopped taking her inhaler because she was doing fine without them. She said that she has low energy and get tired easily. Denies any fever, palpitation, dizziness, fever and dysuria. Allergies Allergy/AdvReac Type Severity Reaction Status Date / Time Bactrim Allergy Severe "SEVERE GI Verified 04/29/17 15:45 UPSET" mold Allergy Severe SNEEZING, Verified 10/11/18 12:48 WATERY EYES, MAY CAUSE SOB-DEPENDS ON MOLD sulfamethoxazole Allergy Severe "SEVERE GI Verified 10/11/18 12:48 UPSET" trimethoprim Allergy Severe "SEVERE GI Verified 10/11/18 12:48 UPSET" adhesive Allergy Intermediate REDNESS, Verified 10/11/18 12:48 ITCHY, BLISTERS Aminoglycosides Allergy Intermediate ITCHY RASH Verified 10/11/18 12:48 bacitracin Allergy Intermediate ITCHY RASH Verified 10/11/18 12:48 neomycin Allergy Intermediate ITCHY RASH Verified 10/11/18 12:48 polymyxin B Allergy Intermediate ITCHY RASH Verified 10/11/18 12:48 Home Medications Home Medications Medication Instructions Recorded Confirmed Type aspirin 81 mg PO DAILY #0 11/10/14 10/11/18 History insulin aspart U-100 [Novolog 14 unit SUBCUT QAM #0 10/01/15 10/11/18 History Flexpen U-100 Insulin] empagliflozin [Jardiance] 25 mg PO PM #0 05/20/17 10/11/18 History lorazepam 0.5 mg BUCCAL BID PRN #0 05/20/17 10/11/18 History citalopram 20 mg PO DAILY #0 09/23/17 10/11/18 History insulin glargine [Lantus Solostar 45 unit SUBCUT BID #0 09/23/17 10/11/18 History U-100 Insulin] lisinopril 20 mg PO DAILY #0 09/23/17 10/11/18 History montelukast [Singulair] 10 mg PO PM #0 09/23/17 10/11/18 History albuterol sulfate [Ventolin HFA] 1 puff INHALATION Q6H PRN 08/07/18 10/11/18 History atorvastatin [Lipitor] 80 mg PO DAILY 08/07/18 10/11/18 History fenofibrate nanocrystallized 48 mg PO DAILY 08/07/18 10/11/18 History [Tricor] isosorbide mononitrate 60 mg PO QAM 08/07/18 10/11/18 History metformin 1,000 mg PO DAILY 08/07/18 10/11/18 History metoprolol tartrate [Lopressor] 25 mg PO BID 08/07/18 10/11/18 History mometasone-formoterol 2 puff INHALATION BID 08/07/18 10/11/18 History nitroglycerin 0.4 mg SUBLINGUAL UD 10/11/18 10/11/18 History Past Med/Surg History Medical History Anxiety Asthma HTN (hypertension) Genital herpes (Chronic) Tobacco abuse (Chronic) Chest pain CAD (coronary artery disease) Atypical chest pain Diabetes type 2, uncontrolled Myocardial infarction Diabetes Surgical History Previous section (Chronic) S/P TAO-BSO (Chronic) H/O exploratory laparotomy (Chronic) History of coronary artery stent placement H/O: hysterectomy Family History Other Cancer Diabetes Heart disease Hypertension Social History Preferred Language: Latvian Communication Ability: Effective 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 Beliefs That Will Affect Care: None Current Living Situation: Alone Other Information That Helps Us Care for You: No Feels Safe at Home: Yes Safety Concerns: Feels Safe At This Time Smoking Status: Current every day smoker Second Hand Exposure: Yes Tobacco Cessation Education Requested by Patient: No Hx Alcohol Use: No Hx Substance Use: No Review of Systems Review of Systems: All systems reviewed & are unremarkable except as noted in HPI & below Physical Exam Physical Exam: General- No acute distress Head- atraumatic Eyes- PERRL, EOMI, ENT- oropharynx clear Neck- supple, no JVD Lungs- diminished BS Heart- +tachycardia no murmur Abdomen- normal bowel sounds, soft, nontender Extremities- no calf tenderness Neuro- alert, oriented x 3; PERRL, EOMI; no facial palsy; no dysarthria Skin- warm & dry Results & Data Vital Signs (Past 12 Hours) Vital Signs Temp Pulse Pulse Resp BP Pulse Ox 10/11/18 16:30 101 H 22 136/98 90 10/11/18 16:20 104 H 22 90 10/11/18 16:10 24 90 10/11/18 16:00 109 H 24 90 10/11/18 15:50 109 H 19 90 10/11/18 15:40 106 H 25 H 10/11/18 15:31 111 H 24 163/105 H 10/11/18 15:30 84 25 H 10/11/18 15:20 113 H 23 10/11/18 15:10 103 H 28 H 10/11/18 15:01 100 H 22 143/91 H 10/11/18 15:00 94 H 23 10/11/18 14:50 101 H 24 10/11/18 14:40 98 H 24 10/11/18 14:31 91 H 17 138/85 10/11/18 14:30 91 H 22 10/11/18 14:20 95 H 26 H 10/11/18 14:13 97 H 24 90 10/11/18 14:12 97 H 20 138/90 90 10/11/18 13:50 91 H 16 10/11/18 13:40 82 22 10/11/18 13:31 84 21 129/90 90 10/11/18 13:30 89 18 92 10/11/18 13:20 83 22 90 10/11/18 13:10 77 21 93 10/11/18 13:02 94 H 18 90 10/11/18 13:01 82 28 H 136/94 92 10/11/18 13:00 78 18 93 10/11/18 12:50 78 22 94 10/11/18 12:40 91 H 14 91 10/11/18 12:31 77 16 141/94 H 94 10/11/18 12:30 79 19 94 10/11/18 12:24 82 22 93 10/11/18 12:20 95 H 19 93 10/11/18 12:15 96 10/11/18 12:11 92 H 15 93 10/11/18 12:01 98 H 17 123/84 93 10/11/18 11:33 93 10/11/18 11:32 94 06/25/19 11:19 36.6 C 86 18 131/87 96 (1) CHF (congestive heart failure) Heart failure chronicity: acute Heart failure type: unspecified Qualified Code(s): I50.9 - Heart failure, unspecified
[2018-10-11] MEDS ORDERED: INSULIN HUMAN REGULAR PER UNIT 7 UNITS in SYRINGE 6.93 ML IV ONE ×2 (17:30→21:00)
[2018-10-11] MEDS ORDERED: INSULIN GLARGINE SOLOSTAR 100 UNITS/ML 3 ML PEN SC ONE (17:30)
[2018-10-11] MEDS: ALBUT/IPRATROP 3MG/0.5MG NEB 3 ML VIAL NEB SCH ×2 (17:33→19:32)
[2018-10-11] MEDS ORDERED: PNEUMOCOCCAL ADMINISTRATION CHARGE ONE (17:45)
[2018-10-11] MEDS ORDERED: PNEUMOCOCCAL POLYSACCHARIDES 25 MCG/0.5 ML VIAL/SYR IM ONE (17:45)
[2018-10-11] MEDS: INSULIN ASPART 100 UNITS/ML 3 ML PEN SC SCH ×3 (18:43→23:56)
[2018-10-11] MEDS: ASPIRIN 81 MG ECTAB PO SCH (18:44)
[2018-10-11] MEDS: ATORVASTATIN 40 MG TAB PO SCH (18:45)
--- NOTE | 2018-10-11 19:40 | Emergency Department Note ---
Entered by Larry Borrero acting as a scribe for Jarrod Broderick MD History of Present Illness General Chief complaint: Shortness of Breath/Dyspnea Stated complaint: HARD TIME BREATHING,CHEST HURTS, HEART RACING Time Seen by Provider: 10/11/18 12:02 Source: patient History of Present Illness Onset (ago): week(s) 2 Location: chest (lungs) Pain Consistency: + other (persistent) Quality: + other (shortness of breath) Associated symptoms: + chest pain and + cough The patient is a 53 year old female who presents to the Emergency Room with complaints of persistent shortness of breath over the past 2 weeks. The patient reports a cough that is occasionally productive of phlegm. She also reports some chest tightness over the past couple of days. She notes that her shortness of breath worsened today, so she called her PCP and was instructed to come to the ER. The patient reports that she does not have any inhalers at home. She smokes less than a pack of cigarettes daily. The patient reports a history of heart attack in 2011, and then a few years later they found out where the put the stent was blocked, and they said they wouldnt do anything about it unless I am in an active heart attack. Home Medications Home Medications Medication Instructions Recorded Confirmed Type aspirin 81 mg PO DAILY #0 11/10/14 10/11/18 History insulin aspart U-100 [Novolog 14 unit SUBCUT QAM #0 10/01/15 10/11/18 History Flexpen U-100 Insulin] empagliflozin [Jardiance] 25 mg PO PM #0 05/20/17 10/11/18 History lorazepam 0.5 mg BUCCAL BID PRN #0 05/20/17 10/11/18 History citalopram 20 mg PO DAILY #0 09/23/17 10/11/18 History insulin glargine [Lantus Solostar 45 unit SUBCUT BID #0 09/23/17 10/11/18 History U-100 Insulin] lisinopril 20 mg PO DAILY #0 09/23/17 10/11/18 History montelukast [Singulair] 10 mg PO PM #0 09/23/17 10/11/18 History albuterol sulfate [Ventolin HFA] 1 puff INHALATION Q6H PRN 08/07/18 10/11/18 History atorvastatin [Lipitor] 80 mg PO DAILY 08/07/18 10/11/18 History fenofibrate nanocrystallized 48 mg PO DAILY 08/07/18 10/11/18 History [Tricor] isosorbide mononitrate 60 mg PO QAM 08/07/18 10/11/18 History metformin 1,000 mg PO DAILY 08/07/18 10/11/18 History metoprolol tartrate [Lopressor] 25 mg PO BID 08/07/18 10/11/18 History mometasone-formoterol 2 puff INHALATION BID 08/07/18 10/11/18 History nitroglycerin 0.4 mg SUBLINGUAL UD 10/11/18 10/11/18 History Allergies Allergy/AdvReac Type Severity Reaction Status Date / Time Bactrim Allergy Severe "SEVERE GI Verified 04/29/17 15:45 UPSET" mold Allergy Severe SNEEZING, Verified 10/11/18 12:48 WATERY EYES, MAY CAUSE SOB-DEPENDS ON MOLD sulfamethoxazole Allergy Severe "SEVERE GI Verified 10/11/18 12:48 UPSET" trimethoprim Allergy Severe "SEVERE GI Verified 10/11/18 12:48 UPSET" adhesive Allergy Intermediate REDNESS, Verified 10/11/18 12:48 ITCHY, BLISTERS Aminoglycosides Allergy Intermediate ITCHY RASH Verified 10/11/18 12:48 bacitracin Allergy Intermediate ITCHY RASH Verified 10/11/18 12:48 neomycin Allergy Intermediate ITCHY RASH Verified 10/11/18 12:48 polymyxin B Allergy Intermediate ITCHY RASH Verified 10/11/18 12:48 Past Med/Surg History Medical History Anxiety Asthma HTN (hypertension) Genital herpes (Chronic) Tobacco abuse (Chronic) Chest pain CAD (coronary artery disease) Atypical chest pain Diabetes type 2, uncontrolled Myocardial infarction Diabetes Surgical History Previous section (Chronic) S/P TAO-BSO (Chronic) H/O exploratory laparotomy (Chronic) History of coronary artery stent placement H/O: hysterectomy Family History Other Cancer Diabetes Heart disease Hypertension Social History Preferred Language: Senegalese Communication Ability: Effective Soup Mixer Required: No Beliefs That Will Affect Care: None Current Living Situation: Alone Other Information That Helps Us Care for You: No Feels Safe at Home: Yes Safety Concerns: Feels Safe At This Time Smoking Status: Current every day smoker Second Hand Exposure: Yes Tobacco Cessation Education Requested by Patient: No Hx Alcohol Use: No Hx Substance Use: No Review of Systems See HPI for pertinent positives & negatives. and A total of 10 systems reviewed and were otherwise negative Physical Exam Vital Signs Vital Signs - 24 hr 10/11/18 11:19 10/11/18 11:32 10/11/18 11:33 Temperature 36.6 C Temperature Source Oral Sepsis Recent Fever Within 48 Hours No Sepsis New/Unexplained Change in Mental Status No Sepsis Action Taken by Nursing No Action Required Pulse Rate 86 Pulse Rate [Finger] Pulse Rate from SpO2 Sensor Pulse Strength Normal Respiratory Rate 18 Respiratory Effort / Characteristics Non-Labored Respiratory Depth Normal Respiratory Pattern Regular Blood Pressure 131/87 Blood Pressure Mean 101 Blood Pressure Position Sitting Pulse Oximetry 96 94 93 Oxygen Delivery Method Room Air Room Air Room Air 10/11/18 12:01 10/11/18 12:11 10/11/18 12:15 Temperature Temperature Source Sepsis Recent Fever Within 48 Hours Sepsis New/Unexplained Change in Mental Status Sepsis Action Taken by Nursing Pulse Rate 98 H 92 H Pulse Rate [Finger] Pulse Rate from SpO2 Sensor 98 H 82 Pulse Strength Respiratory Rate 17 15 Respiratory Effort / Characteristics Respiratory Depth Respiratory Pattern Blood Pressure 123/84 Blood Pressure Mean 97 Blood Pressure Position Pulse Oximetry 93 93 96 Oxygen Delivery Method Room Air 10/11/18 12:20 10/11/18 12:24 10/11/18 12:30 Temperature Temperature Source Sepsis Recent Fever Within 48 Hours Sepsis New/Unexplained Change in Mental Status Sepsis Action Taken by Nursing Pulse Rate 95 H 79 Pulse Rate [Finger] 82 Pulse Rate from SpO2 Sensor 95 H 79 Pulse Strength Respiratory Rate 19 22 19 Respiratory Effort / Characteristics Spontaneous Short of Breath Respiratory Depth Respiratory Pattern Blood Pressure Blood Pressure Mean Blood Pressure Position Pulse Oximetry 93 93 94 Oxygen Delivery Method Room Air 10/11/18 12:31 10/11/18 12:40 10/11/18 12:50 Temperature Temperature Source Sepsis Recent Fever Within 48 Hours Sepsis New/Unexplained Change in Mental Status Sepsis Action Taken by Nursing Pulse Rate 77 91 H 78 Pulse Rate [Finger] Pulse Rate from SpO2 Sensor 75 89 78 Pulse Strength Respiratory Rate 16 14 22 Respiratory Effort / Characteristics Respiratory Depth Respiratory Pattern Blood Pressure 141/94 H Blood Pressure Mean 109 Blood Pressure Position Pulse Oximetry 94 91 94 Oxygen Delivery Method 10/11/18 13:00 10/11/18 13:01 10/11/18 13:02 Temperature Temperature Source Sepsis Recent Fever Within 48 Hours Sepsis New/Unexplained Change in Mental Status Sepsis Action Taken by Nursing Pulse Rate 78 82 94 H Pulse Rate [Finger] Pulse Rate from SpO2 Sensor 76 81 97 H Pulse Strength Respiratory Rate 18 28 H 18 Respiratory Effort / Characteristics Respiratory Depth Respiratory Pattern Blood Pressure 136/94 Blood Pressure Mean 108 Blood Pressure Position Pulse Oximetry 93 92 90 Oxygen Delivery Method 10/11/18 13:10 10/11/18 13:20 10/11/18 13:30 Temperature Temperature Source Sepsis Recent Fever Within 48 Hours Sepsis New/Unexplained Change in Mental Status Sepsis Action Taken by Nursing Pulse Rate 77 83 89 Pulse Rate [Finger] Pulse Rate from SpO2 Sensor 80 80 87 Pulse Strength Respiratory Rate 21 22 18 Respiratory Effort / Characteristics Respiratory Depth Respiratory Pattern Blood Pressure Blood Pressure Mean Blood Pressure Position Pulse Oximetry 93 90 92 Oxygen Delivery Method 10/11/18 13:31 10/11/18 13:40 10/11/18 13:50 Temperature Temperature Source Sepsis Recent Fever Within 48 Hours Sepsis New/Unexplained Change in Mental Status Sepsis Action Taken by Nursing Pulse Rate 84 82 91 H Pulse Rate [Finger] Pulse Rate from SpO2 Sensor 83 Pulse Strength Respiratory Rate 21 22 16 Respiratory Effort / Characteristics Respiratory Depth Respiratory Pattern Blood Pressure 129/90 Blood Pressure Mean 103 Blood Pressure Position Pulse Oximetry 90 Oxygen Delivery Method 10/11/18 14:12 10/11/18 14:13 10/11/18 14:20 Temperature Temperature Source Sepsis Recent Fever Within 48 Hours Sepsis New/Unexplained Change in Mental Status Sepsis Action Taken by Nursing Pulse Rate 97 H 97 H 95 H Pulse Rate [Finger] Pulse Rate from SpO2 Sensor 97 H 97 H Pulse Strength Respiratory Rate 20 24 26 H Respiratory Effort / Characteristics Respiratory Depth Respiratory Pattern Blood Pressure 138/90 Blood Pressure Mean 106 Blood Pressure Position Pulse Oximetry 90 90 Oxygen Delivery Method 10/11/18 14:30 10/11/18 14:31 10/11/18 14:40 Temperature Temperature Source Sepsis Recent Fever Within 48 Hours Sepsis New/Unexplained Change in Mental Status Sepsis Action Taken by Nursing Pulse Rate 91 H 91 H 98 H Pulse Rate [Finger] Pulse Rate from SpO2 Sensor Pulse Strength Respiratory Rate 22 17 24 Respiratory Effort / Characteristics Respiratory Depth Respiratory Pattern Blood Pressure 138/85 Blood Pressure Mean 102 Blood Pressure Position Pulse Oximetry Oxygen Delivery Method 10/11/18 14:50 10/11/18 15:00 10/11/18 15:01 Temperature Temperature Source Sepsis Recent Fever Within 48 Hours Sepsis New/Unexplained Change in Mental Status Sepsis Action Taken by Nursing Pulse Rate 101 H 94 H 100 H Pulse Rate [Finger] Pulse Rate from SpO2 Sensor Pulse Strength Respiratory Rate 24 23 22 Respiratory Effort / Characteristics Respiratory Depth Respiratory Pattern Blood Pressure 143/91 H Blood Pressure Mean 108 Blood Pressure Position Pulse Oximetry Oxygen Delivery Method 10/11/18 15:10 10/11/18 15:20 10/11/18 15:30 Temperature Temperature Source Sepsis Recent Fever Within 48 Hours Sepsis New/Unexplained Change in Mental Status Sepsis Action Taken by Nursing Pulse Rate 103 H 113 H 84 Pulse Rate [Finger] Pulse Rate from SpO2 Sensor Pulse Strength Respiratory Rate 28 H 23 25 H Respiratory Effort / Characteristics Respiratory Depth Respiratory Pattern Blood Pressure Blood Pressure Mean Blood Pressure Position Pulse Oximetry Oxygen Delivery Method 10/11/18 15:31 Temperature Temperature Source Sepsis Recent Fever Within 48 Hours Sepsis New/Unexplained Change in Mental Status Sepsis Action Taken by Nursing Pulse Rate 111 H Pulse Rate [Finger] Pulse Rate from SpO2 Sensor Pulse Strength Respiratory Rate 24 Respiratory Effort / Characteristics Respiratory Depth Respiratory Pattern Blood Pressure 163/105 H Blood Pressure Mean 124 Blood Pressure Position Pulse Oximetry Oxygen Delivery Method GENERAL: Awake, alert, fatigued-appearing, in no distress HENT: Normocephalic, atraumatic. Mucous membranes dry. EYES: Normal conjunctiva. Sclera non-icteric. NECK: Supple. No nuchal rigidity. FROM. No JVD. RESPIRATORY: Diminished at bases with scant intermittent wheeze. Otherwise clear to auscultation bilaterally. CARDIAC: Regular rate, normal rhythm. Extremities warm and well perfused. Pulses equal. ABDOMEN: Soft, non-distended. No tenderness to palpation. No rebound or guarding. No masses. RECTAL: Deferred. MUSCULOSKELETAL: Chest examination reveals no tenderness. The back is symmetrical on inspection without obvious abnormality. There is no CVA tenderness to palpation. No joint edema. LOWER EXTREMITIES: Calves are equal size bilaterally and non-tender. No edema. No discoloration. NEURO: Normal sensorium. No sensory or motor deficits noted. SKIN: No rash or jaundice noted. Course 1209: The patient was evaluated in room C4. A complete history and physical examination were performed. 1437: I consulted Priyanka Troy PA-C: [facility] Hospitalist. The patient will be reevaluated for hospitalization. 1448: I updated the patient on the current plan. Administered Medications Albuterol (Duoneb) 3 ml NEB QIDR ARTIS Stop: 11/10/18 16:57 Last Admin: 10/11/18 19:32 Dose: 3 ml Documented by: [id number] Admin: 10/11/18 17:33 Dose: Not Given Documented by: [id number] Aspirin (Ecotrin Ectab) 81 mg PO DAILY ARTIS Stop: 11/10/18 17:59 Last Admin: 10/11/18 18:44 Dose: 81 mg Documented by: [id number] Atorvastatin Calcium (Lipitor) 80 mg PO DAILY ARTIS Stop: 11/10/18 17:59 Last Admin: 10/11/18 18:45 Dose: 80 mg Documented by: [id number] Heparin Sodium (Porcine) (Heparin Sodium (Porcine)) 5,000 units SQ Q8 ARTIS Stop: 11/10/18 21:59 Last Admin: 10/11/18 21:19 Dose: 5,000 units Documented by: [id number] Cosigned by: [id number] Insulin Aspart (Novolog Flexpen) 0 units SC ACHS ARTIS Stop: 11/10/18 17:29 Last Admin: 10/11/18 21:18 Dose: 16 units Documented by: [id number] Cosigned by: [id number] Admin: 10/11/18 18:43 Dose: 23 units Documented by: [id number] Cosigned by: [id number] Lorazepam (Ativan) 0.5 mg PO BID PRN PRN Reason: Anxiety Stop: 11/10/18 17:06 Last Admin: 10/11/18 21:16 Dose: 0.5 mg Documented by: [id number] Metoprolol Tartrate (Lopressor) 25 mg PO BID ARTIS Stop: 11/10/18 20:59 Last Admin: 10/11/18 21:16 Dose: 25 mg Documented by: [id number] Discontinued Medications Albuterol (Duoneb) 3 ml NEB NOW STA Stop: 10/11/18 12:10 Last Admin: 10/11/18 12:23 Dose: 3 ml Documented by: [id number] Furosemide (Lasix) 20 mg IV NOW STA Stop: 10/11/18 14:34 Last Admin: 10/11/18 15:27 Dose: 20 mg Documented by: [id number] Sodium Chloride (Nss) 500 mls @ 999 mls/hr IV .Q31M ARTIS Stop: 10/11/18 12:45 Last Infusion: 10/11/18 13:07 Dose: 0 mls/hr Documented by: [id number] Admin: 10/11/18 12:19 Dose: 999 mls/hr Documented by: [id number] Furosemide 20 mg/ Syringe 2 mls @ 4 mls/min IV NOW STA Stop: 10/11/18 15:38 Last Admin: 10/11/18 15:51 Dose: 4 mls/min Documented by: [id number] Insulin Human Regular 7 units/ (Syringe) 7 mls @ 7 mls/min IV NOW ONE Stop: 10/11/18 17:31 Last Admin: 10/11/18 18:39 Dose: 7 mls/min Documented by: [id number] Cosigned by: [id number] Insulin Human Regular 7 units/ (Syringe) 7 mls @ 7 mls/min IV NOW ONE Stop: 10/11/18 21:01 Last Admin: 10/11/18 21:16 Dose: 7 mls/min Documented by: [id number] Cosigned by: [id number] Insulin Glargine (Lantus Solostar Pen) 40 units SC NOW ONE Stop: 10/11/18 17:31 Last Admin: 10/11/18 18:40 Dose: 40 units Documented by: [id number] Cosigned by: [id number] Insulin Glargine (Lantus Solostar Pen) 10 units SQ ONE ONE; Protocol Stop: 10/11/18 21:01 Last Admin: 10/11/18 21:17 Dose: 10 units Documented by: [id number] Cosigned by: [id number] Ioversol (Optiray 320 125ml) 120 ml IV ONCE PRN PRN Reason: Interaction Checking Stop: 10/15/18 14:00 Last Admin: 10/11/18 14:01 Dose: 120 ml Documented by: [id number] Methylprednisolone (Solumedrol) 125 mg IV NOW STA Stop: 10/11/18 12:10 Last Admin: 10/11/18 12:19 Dose: 125 mg Documented by: [id number] Medical Decision Making Differential Diagnosis Differential diagnosis includes: infections, reactive airway disease, pneumonia, pneumothorax, COPD, CHF, cardiac ischemia, pulmonary embolism, musculoskeletal, gastrointestinal, as well as others were entertained. Medical Records Attestation: I reviewed the patient's medical records. Home Medications Current Medication List: was personally reviewed by me Laboratory Data Attestation: I reviewed the patient's lab results. Result diagrams: 10/11/18 11:31 10/11/18 11:31 Lab Results 10/11/18 10/11/18 10/11/18 Range/Units 11:31 11:31 11:31 WBC 10.25 (4.8-10.8) K/uL RBC 4.89 (4.2-5.4) M/uL Hgb 14.6 (12.0-16.0) g/dL Hct 43.4 (37-47) % MCV 88.8 (80-100) fL MCH 29.9 (25-34) pg MCHC 33.6 (32-36) g/dL RDW Std Deviation 46.4 H (36.4-46.3) fL RDW Coeff of Kathe 14.4 (11.5-14.5) % Plt Count 356 (130-400) K/uL MPV 9.5 (7.4-10.4) fL Immature Gran % (Auto) 0.3 % Neut % (Auto) 68.1 % Lymph % (Auto) 25.8 % Whiteside % (Auto) 4.7 % Eos % (Auto) 0.7 % Baso % (Auto) 0.4 % Immature Gran # (Auto) 0.03 H (0.00-0.02) K/uL Neut # (Auto) 6.99 H (1.4-6.5) K/uL Lymph # (Auto) 2.64 (1.2-3.4) K/uL Whiteside # (Auto) 0.48 (0.11-0.59) K/uL Eos # (Auto) 0.07 (0-0.5) K/uL Baso # (Auto) 0.04 (0-0.2) K/uL Sodium 135 L (136-145) mmol/L Potassium 4.1 (3.5-5.1) mmol/L Chloride 103 (98-107) mmol/L Carbon Dioxide 23 (21-32) mmol/L Anion Gap 9.0 (3-11) BUN 13 (7-18) mg/dl Creatinine 0.69 (0.6-1.2) mg/dl Est Cr Clr Drug Dosing 90.8 ml/min Est GFR ( Amer) 114.4 Est GFR (Non-Af Amer) 98.7 BUN/Creatinine Ratio 18.5 (10-20) Glucose 347 H* (70-99) mg/dl Calcium 9.6 (8.5-10.1) mg/dl Magnesium 1.8 (1.8-2.4) mg/dl Total Bilirubin 0.6 (0.2-1) mg/dl AST 10 L (15-37) U/L ALT 37 (12-78) U/L Alkaline Phosphatase 91 (45-117) U/L Troponin I 0.066 H* (0-0.045) ng/ml NT-Pro-B Natriuret Pep 3592 H (0-900) pg/ml Total Protein 7.8 (6.4-8.2) gm/dl Albumin 3.7 (3.4-5.0) gm/dl Globulin 4.1 H (2.5-4.0) gm/dl Albumin/Globulin Ratio 0.9 (0.9-2) Lipase 107 (73-393) U/L Beta-Hydroxybutyric Acd 6.85 H (0.2-2.81) mg/dl Imaging Data Radiologist's Impression: Radiology results as stated below per my review and the radiologist's interpretation: CT angio chest PE protocol CT DOSE: 535.83 mGy.cm HISTORY: Chest pain. Dyspnea. PE TECHNIQUE: Multiaxial CT images of the chest were performed following the intravenous administration of contrast to evaluate the pulmonary arteries. Maximal intensity projection images were also obtained. A dose lowering technique was utilized adhering to the principles of ALARA. COMPARISON STUDY: 01/10/2014 FINDINGS: Findings of congestive heart failure persist. There are bilateral pleural effusions. There are pre-existing pleural plaques left lung base. Mild dependent bibasilar atelectasis. Evaluation of pulmonary vasculature shows normal enhancement characteristics throughout. There are no significant or fixed filling defects. Thoracic aorta within limitations of unenhanced and at that location to be unremarkable. IMPRESSION: 1. No evidence of pulmonary embolus. 2. Congestive heart failure with findings of bilateral pleural effusions. The above report was generated using voice recognition software. It may contain grammatical, syntax or spelling errors. Electronically signed by: Gregorio Yeager M.D. 10/11/2018 2:13 PM XR chest 1V portable CLINICAL HISTORY: Atypical chest pain COMPARISON STUDY: 09/23/2017 FINDINGS: The heart is enlarged. There is radiographic evidence of congestive failure/fluid overload. There is mild interstitial edema. There are small bilateral pleural effusions. Basilar opacities are likely atelectatic.[ IMPRESSION: Interval development of congestive failure/fluid overload with small bilateral pleural effusions Electronically signed by: Yared Grover M.D. 10/11/2018 12:45 PM ECG Data Attestation: I personally reviewed and interpreted this ECG as follows: Indication: SOB/dyspnea Rate (beats per minute): 91 Rhythm: normal sinus Findings: + other (normal axis; QRS 108); no ST depression (overt) and no ST elevation (overt) Comparison ECG Date: from (09/23/17) Change: no significant change Blood Pressure Blood Pressure Findings: Elevated blood pressure Blood Pressure Disposition: further management by hospitalist MDM Narrative The patient is a pleasant 53-year-old woman with a past medical history of chronic smoking, CAD status post PCI to RCA in 2011 with proximal occlusion seen on catheterization in 2016, NIDDM 2, hypertension who presents emergency department with cough and congestion and constant chest tightness/pain over the past couple of weeks per hpi. Patient reports that she is coming emergency de partment today because it was the first time she was available to be evaluated and called her PCPs office and was instructed to come to emergency department. EKG similar to prior with QRS of 108 and no overt acute ischemia. Chest x-ray with mild interstitial edema and bilateral pleural effusions suggestive of congestive failure. WBC, H/H, platelets within normal limits. Glucose 347 however chemistry without acidosis. Creatinine within normal limits. LFTs unremarkable. Troponin slightly elevated at 0.06 new from prior with BNP 3500. Given the patient's constant symptoms for the past 2 weeks troponin elevation less likely to be from ACS and more likely related to strain from fluid overl oad. Patient was given dose of IV Lasix and well as initial tx with solumedrol and duo for likely bronchospastic compenent to sx. Appropriate to admit the patient for further management of possible new CHF. Case was discussed with Maria Luisa Hughes PA-C, who will evaluate the patient for admission. Impression & Plan CHF (congestive heart failure), Elevated troponin Discharge Plan Visit Data *Final* Discharge Date/Time: 10/11/18 16:37 Chief Complaint: Shortness of Breath/Dyspnea Stated Complaint: HARD TIME BREATHING,CHEST HURTS, HEART RACING ED Provider: Jarrod Broderick Discharge Problem: CHF (congestive heart failure), Elevated troponin Patient Disposition: Admitted As Inpatient Discharge Instructions Interventions: ED Discharge Assessment Last Done: 10/11/18 16:37 Discharge Problem: CHF (congestive heart failure) Qualifiers: Heart failure type: unspecified Heart failure chronicity: acute Qualified Code(s): I50.9 - Heart failure, unspecified The scribe's documentation has been prepared under my direction and personally reviewed by me in its entirety. I confirm that the note above accurately reflects all work, treatment, procedures, and medical decision making performed by me.
[2018-10-11] MEDS ORDERED: INSULIN GLARGINE SOLOSTAR 100 UNITS/ML 3 ML PEN SQ ONE (21:00)
[2018-10-11] MEDS: LORazepam 0.5 MG TAB PO PRN (21:16)
[2018-10-11] MEDS: METOPROLOL TARTRATE 25 MG TAB PO SCH (21:16)
[2018-10-11] MEDS: HEPARIN SOD 5,000 UNIT/0.5 ML VIAL SQ SCH (21:19)
[2018-10-12] MEDS: ALBUT/IPRATROP 3MG/0.5MG NEB 3 ML VIAL NEB SCH ×2 (03:23→07:30)
[2018-10-12] MEDS: INSULIN ASPART 100 UNITS/ML 3 ML PEN SC SCH ×5 (04:15→22:04)
[2018-10-12] MEDS: HEPARIN SOD 5,000 UNIT/0.5 ML VIAL SQ SCH ×3 (05:12→22:04)
[2018-10-12 05:35] LABS: Hematocrit (blood only) 44.1 % (37-47); Hemoglobin 14.6 g/dL (12.0-16.0); Mean Corpuscular Hgb Conc 33.1 g/dL (32-36); Mean Corpuscular Volume 87.8 fL (80-100); Mean Platelet Volume 9.5 fL (7.4-10.4); Platelet Count 337 K/uL (130-400); RDW Coefficient of Variation 14.3 % (11.5-14.5); RDW Standard Deviation 46.1 fL (36.4-46.3); Red Blood Count 5.02 M/uL (4.2-5.4); White Blood Count 11.36 K/uL (4.8-10.8)
[2018-10-12 05:56] LABS: BUN Creatinine Ratio 36.8 (10-20); Calcium 9.1 mg/dl (8.5-10.1); Creatinine Clr Calc Pharmacy 117.6 ml/min; Est GFR (African American) 124.8; Est GFR (Non-African American) 107.6; Potassium 3.8 mmol/L (3.5-5.1)
[2018-10-12] MEDS ORDERED: ALBUT/IPRATROP 3MG/0.5MG NEB 3 ML VIAL NEB PRN (08:09)
[2018-10-12] MEDS: ISOSORBIDE MONO EXTENDED REL 60 MG TABCR PO SCH (08:27)
[2018-10-12] MEDS: ATORVASTATIN 40 MG TAB PO SCH (08:28)
[2018-10-12] MEDS: CITALOPRAM 20 MG TAB PO SCH (08:28)
[2018-10-12] MEDS: FENOFIBRATE NANOCRYSTALLIZED 48 MG TABLET PO SCH (08:28)
[2018-10-12] MEDS: ASPIRIN 81 MG ECTAB PO SCH (08:28)
[2018-10-12] MEDS: METOPROLOL TARTRATE 25 MG TAB PO SCH (08:28)
[2018-10-12] MEDS: INSULIN GLARGINE SOLOSTAR 100 UNITS/ML 3 ML PEN SQ SCH ×2 (08:29→21:33)
[2018-10-12] MEDS ORDERED: LISINOPRIL 20 MG TAB PO SCH (09:00)
[2018-10-12 10:23] LABS: Estimated Average Glucose 312 mg/dl; Hemoglobin A1C 12.5 % (4.5-5.6)
[2018-10-12] MEDS: ALBUTEROL HFA 8 GM INHALER INH SCH ×3 (11:59→22:05)
--- NOTE | 2018-10-12 12:26 | Cardiology Consultation ---
Date of Consultation October 12, 2018 Assessment & Plan (1) Acute systolic (congestive) heart failure: Patient is responded with diuresis after single dose of IV furosemide. Echocardiogram demonstrates substantial new wall motion normalities with expanded septal and apical infarct and severe LV dysfunction. Previous diagnostic cardiac catheterization was notable for single-vessel disease with chronic right coronary occlusion. Wall motion abnormalities currently in new area distribution Patient asymptomatic. Minimal troponin elevation on initial presentation. Historically symptoms appear several weeks to months in duration with acute heart failure in the last 2 weeks time The blood pressure is marginal currently. We will give additional dose of low- dose furosemide this evening. Hydrate gently prior to diagnostic cardiac catheterization Discussed findings in detail with the patient. Recommend diagnostic cardiac catheterization to reassess coronary anatomy in a.m. scheduled for 930 We will change metoprolol tartrate to metoprolol succinate for appropriate heart failure beta-grant. Lisinopril and isosorbide held in a.m. due to relatively low blood pressures Further recommendations pending the results of diagnostic testing (2) Ischemic cardiomyopathy: Patient will ultimately need to be evaluated for pacer defibrillator depending on clinical course (3) History of coronary artery stent placement: (4) Diabetes type 2, uncontrolled: History of Present Illness Reason for Consultation: Congestive heart failure, ischemic cardiomyopathy Requesting Physician: Dr. Cash Attending Physician: Mary Cash MD History of Present Illness Patient is a 53-year-old female with complex cardiac history which includes past acute inferior myocardial infarction in 2011 undergoing coronary intervention and stenting in the right coronary artery at that time. Follow-up cardiac catheterization 2015 with symptoms of chest pain revealed chronically occluded right coronary artery but no other high-grade obstruction. She is undergone past stress testing in 2017 and 2018 without stress-induced ischemia. Underlying medical problems include hypertension, poorly controlled diabetes mellitus, hyperlipidemia, chronic tobacco use. Patient presents this admission with worsening dyspnea of several weeks duration severe over the past 2 weeks. She has noted episodes of chest pressure intermittently some extensive and severe in nature over the past several months. Recently has had difficulties with shortness of breath, intermittent diaphoresis as well as symptomatic tachypalpitations. She has been off medi cations for several weeks. Notes no recent fevers chills or sweats other than is described. Notes no melena hematochezia dysuria hematuria. No bleeding difficulties. Weight has been trending up and patient has been aware of increasing lower extremity edema. Allergies Allergy/AdvReac Type Severity Reaction Status Date / Time Bactrim Allergy Severe "SEVERE GI Verified 04/29/17 15:45 UPSET" mold Allergy Severe SNEEZING, Verified 10/11/18 12:48 WATERY EYES, MAY CAUSE SOB-DEPENDS ON MOLD sulfamethoxazole Allergy Severe "SEVERE GI Verified 10/11/18 12:48 UPSET" trimethoprim Allergy Severe "SEVERE GI Verified 10/11/18 12:48 UPSET" adhesive Allergy Intermediate REDNESS, Verified 10/11/18 12:48 ITCHY, BLISTERS Aminoglycosides Allergy Intermediate ITCHY RASH Verified 10/11/18 12:48 bacitracin Allergy Intermediate ITCHY RASH Verified 10/11/18 12:48 neomycin Allergy Intermediate ITCHY RASH Verified 10/11/18 12:48 polymyxin B Allergy Intermediate ITCHY RASH Verified 10/11/18 12:48 Home Medications Home Medications Medication Instructions Recorded Confirmed Type aspirin 81 mg PO DAILY #0 11/10/14 10/11/18 History insulin aspart U-100 [Novolog 14 unit SUBCUT QAM #0 10/01/15 10/11/18 History Flexpen U-100 Insulin] empagliflozin [Jardiance] 25 mg PO PM #0 05/20/17 10/11/18 History lorazepam 0.5 mg BUCCAL BID PRN #0 05/20/17 10/11/18 History citalopram 20 mg PO DAILY #0 09/23/17 10/11/18 History insulin glargine [Lantus Solostar 45 unit SUBCUT BID #0 09/23/17 10/11/18 History U-100 Insulin] lisinopril 20 mg PO DAILY #0 09/23/17 10/11/18 History montelukast [Singulair] 10 mg PO PM #0 09/23/17 10/11/18 History albuterol sulfate [Ventolin HFA] 1 puff INHALATION Q6H PRN 08/07/18 10/11/18 History atorvastatin [Lipitor] 80 mg PO DAILY 08/07/18 10/11/18 History fenofibrate nanocrystallized 48 mg PO DAILY 08/07/18 10/11/18 History [Tricor] isosorbide mononitrate 60 mg PO QAM 08/07/18 10/11/18 History metformin 1,000 mg PO DAILY 08/07/18 10/11/18 History metoprolol tartrate [Lopressor] 25 mg PO BID 08/07/18 10/11/18 History mometasone-formoterol 2 puff INHALATION BID 08/07/18 10/11/18 History nitroglycerin 0.4 mg SUBLINGUAL UD 10/11/18 10/11/18 History Patient History Medical History Anxiety Asthma HTN (hypertension) Genital herpes (Chronic) Tobacco abuse (Chronic) Chest pain CAD (coronary artery disease) Atypical chest pain Diabetes type 2, uncontrolled Myocardial infarction Diabetes Surgical History Previous section (Chronic) S/P TAO-BSO (Chronic) H/O exploratory laparotomy (Chronic) History of coronary artery stent placement H/O: hysterectomy Family History Other Cancer Diabetes Heart disease Hypertension Social History Preferred Language: Mongolian Communication Ability: Effective Physician Scribe Required: No Beliefs That Will Affect Care: None Current Living Situation: Alone Other Information That Helps Us Care for You: No Feels Safe at Home: Yes Safety Concerns: Feels Safe At This Time Smoking Status: Current every day smoker Second Hand Exposure: Yes Tobacco Cessation Education Requested by Patient: No Hx Alcohol Use: No Hx Substance Use: No Physical Exam Constitutional: WD/WN, vitals as above Eyes: PERRL, conjunctivae normal, anicteric sclerae ENMT: external ear and nose normal, oropharynx normal Neck: trachea midline, no thyromegaly Respiratory: Auscultation: + diminished lung sounds and + rales (Mild bibasilar) Cardiovascular: Rate/Rhythm: regular rate and regular rhythm Heart Sounds: normal S1, normal S2 and + gallop Vessels: no carotid bruit, no abdominal aortic bruit and no femoral bruit Extremities: + edema (1-2+ bilateral) Gastrointestinal (Abdomen): normal bowel sounds, soft, nontender, no hepatosplenomegaly Musculoskeletal: no cyanosis or clubbing, extremities motor strength 5/5 Skin: no rashes, warm and dry Results & Data Vital Signs (Past 12 Hours) Vital Signs Temp Pulse Resp BP Pulse Ox 10/12/18 11:04 36.7 C 76 18 96/63 L 96 10/12/18 07:30 78 16 89 L 10/12/18 03:31 36.5 C 85 19 110/77 91 10/12/18 03:23 72 16 92 Laboratory Results Laboratory Results - last 24 hr 10/11/18 10/11/18 10/11/18 11:31 11:31 16:56 WBC RBC Hgb Hct MCV MCH MCHC RDW Std Deviation RDW Coeff of [place]athe Plt Count MPV Sodium Potassium Chloride Carbon Dioxide Anion Gap BUN Creatinine Est Cr Clr Drug Dosing Est GFR ( Amer) Est GFR (Non-Af Amer) BUN/Creatinine Ratio Glucose POC Glucose 411 H* Estimat Average Glucose Hemoglobin A1c Calcium Troponin I 0.066 H* NT-Pro-B Natriuret Pep 3592 H Triglycerides Cholesterol LDL Cholesterol, Calc VLDL Cholesterol, Calc HDL Cholesterol Cholesterol/HDL Ratio Beta-Hydroxybutyric Acd 6.85 H 10/11/18 10/11/18 10/11/18 16:58 17:21 20:12 WBC RBC Hgb Hct MCV MCH MCHC RDW Std Deviation RDW Coeff of [place] Plt Count MPV Sodium Potassium Chloride Carbon Dioxide Anion Gap BUN Creatinine Est Cr Clr Drug Dosing Est GFR ( Amer) Est GFR (Non-Af Amer) BUN/Creatinine Ratio Glucose POC Glucose 417 H* 375 H* Estimat Average Glucose Hemoglobin A1c Calcium Troponin I 0.040 NT-Pro-B Natriuret Pep Triglycerides Cholesterol LDL Cholesterol, Calc VLDL Cholesterol, Calc HDL Cholesterol Cholesterol/HDL Ratio Beta-Hydroxybutyric Acd 10/11/18 10/11/18 10/12/18 23:08 23:55 04:12 WBC RBC Hgb Hct MCV MCH MCHC RDW Std Deviation RDW Coeff of [place] Plt Count MPV Sodium Potassium Chloride Carbon Dioxide Anion Gap BUN Creatinine Est Cr Clr Drug Dosing Est GFR ( Amer) Est GFR (Non-Af Amer) BUN/Creatinine Ratio Glucose POC Glucose 222 H 231 H Estimat Average Glucose Hemoglobin A1c Calcium Troponin I 0.035 NT-Pro-B Natriuret Pep Triglycerides Cholesterol LDL Cholesterol, Calc VLDL Cholesterol, Calc HDL Cholesterol Cholesterol/HDL Ratio Beta-Hydroxybutyric Acd 10/12/18 10/12/18 10/12/18 05:05 05:05 05:05 WBC 11.36 H RBC 5.02 Hgb 14.6 Hct 44.1 MCV 87.8 MCH 29.1 MCHC 33.1 RDW Std Deviation 46.1 RDW Coeff of Kathe 14.3 Plt Count 337 MPV 9.5 Sodium 136 Potassium 3.8 Chloride 104 Carbon Dioxide 25 Anion Gap 7.0 BUN 19 H Creatinine 0.53 L Est Cr Clr Drug Dosing 117.6 Est GFR ( Amer) 124.8 Est GFR (Non-Af Amer) 107.6 BUN/Creatinine Ratio 36.8 H Glucose 238 H POC Glucose Estimat Average Glucose 312 Hemoglobin A1c 12.5 H Calcium 9.1 Troponin I NT-Pro-B Natriuret Pep Triglycerides 230 H Cholesterol 274 H LDL Cholesterol, Calc 192 VLDL Cholesterol, Calc 46 HDL Cholesterol 36 Cholesterol/HDL Ratio 8 Beta-Hydroxybutyric Acd 10/12/18 10/12/18 07:34 11:13 WBC RBC Hgb Hct MCV MCH MCHC RDW Std Deviation RDW Coeff of [place] Plt Count MPV Sodium Potassium Chloride Carbon Dioxide Anion Gap BUN Creatinine Est Cr Clr Drug Dosing Est GFR ( Amer) Est GFR (Non-Af Amer) BUN/Creatinine Ratio Glucose POC Glucose 196 H 283 H Estimat Average Glucose Hemoglobin A1c Calcium Troponin I NT-Pro-B Natriuret Pep Triglycerides Cholesterol LDL Cholesterol, Calc VLDL Cholesterol, Calc HDL Cholesterol Cholesterol/HDL Ratio Beta-Hydroxybutyric Acd ECG Additional Comments: 11-OCT-2018 11:27:10 [facility]STAT ROUTINE RETRIEVAL Normal sinus rhythm Possible Left atrial enlargement Anterior infarct (cited on or before 10-JAN-2014) T wave abnormality, consider lateral ischemia Abnormal ECG When compared with ECG of 23-SEP-2017 19:30, Criteria for Inferior infarct are no longer Present Questionable change in initial forces of Lateral leads Confirmed by Santo Rivera ([id number]) on 10/11/2018 4:53:45 PM
--- NOTE | 2018-10-12 14:45 | Pharmacy Report ---
Pharmacy Glycemic Short Note 2 - Date of Service October 12, 2018 - Glycemic Short BSG Results (Last 24 hours): 10/11/18 10/11/18 10/11/18 16:56 16:58 20:12 Glucose POC Glucose 411 H* 417 H* 375 H* 10/11/18 10/12/18 10/12/18 23:55 04:12 05:05 Glucose 238 H POC Glucose 222 H 231 H 10/12/18 10/12/18 07:34 11:13 Glucose POC Glucose 196 H 283 H OUTPATIENT ANTIDIABETIC REGIMEN: * Jardiance 25 QD * Lantus 45 BID * Metformin 1G QD * Novolog 14 units qam ASSESSMENT: * Patient reportedly non-compliant with home regimen, thus expect true insulin needs to be much lower. Will utilize weight based stress dosing for lantus scale. Post prandial levels improved, but remain elevated. Will tighten novolog coverage. Patient will be NPO after midnight for cardiac cath @0930 tomorrow morning, however dextrose containing fluids @ 37 ml/hr are ordered to start at that time. Will order novolog 0000,0400 checks for this reason. PLAN FOR INPATIENT GLYCEMIC CONTROL: * Hold outpatient oral diabetes medications * Basal insulin * Lantus 20 units SQ this morning; per scale based on BSG this evening (See MAR for details) * Bolus insulin * NovoLog per scale ACHS or Q6hrs while NPO * Goal Range: Low 110 mg/dL - High 140 mg/dL * Correction Factor: 15 mg/dL/unit * Nutritional / Prandial insulin per carb ratio of 1 unit per 5 grams CHO consumed
[2018-10-12] MEDS ORDERED: FUROSEMIDE 10 MG in SYRINGE 0 ML IV ONE (16:00)
--- NOTE | 2018-10-12 17:43 | Hospitalist Progress Note ---
Date of Service October 12, 2018 Assessment & Plan (1) Acute systolic (congestive) heart failure: Present on admission with worsening SOB CXR on admission interval development of congestive failure/fluid overload with small bilateral pleural effusions CTA chest showed congestive heart failure with findings of bilateral pleural effusions. No evidence of PE BNP on admission 3592 ordered for IV Lasix appreciate input from Cardiology ECHO :today 10/12/2018 : new Extensive septal and apical infarct thinning and akinesis with aneurysmal expansion of the septum and apex.Inferior wall is severely hypokinetic to akinetic . Left ventricular systolic function is severely reduced EF 25-30% Grade 3 diastolic dysfunction , consisted with marked congestive heart failure prior cardiac cath showed chronically occluded RCA current ECHO shows new wall motion abnormality at LAD distribution area scheduled for cardiac cath in AM NPO past midnight ordered by Cardiology gentle IV hydration ordered will change the IV to NSS ( D/C dextrose /NSS -causing significant hyperglycemic episodes BSG 250 -300 scheduled for cardiac cath tomorrow Present on Admission?: Yes (2) Elevated troponin: Possible related to demand ischemia due to acute CHF/Type 2 NSTEMI EKG showed no significant changes when compared to the previous EKG Continue aspirin, metoprolol and statin Follow up echo shows new wall motion abnormality -outlined above appreciate cardiology eval scheduled for cardiac cath in AM (3) CAD (coronary artery disease): hx of CAD with chronic occlusion of RCA noted in past cardiac cath presented with angina symptoms /Pressure like chest discomfort on admission ECHO as above -new wall motion abnormality with different coronary artery territory cardiology following scheduled for cardiac cath in AM Continue aspirin/statin/metoprolol Continue monitor (4) Diabetes type 2, uncontrolled: Non compliant with insulin/and oral med Has not been taking her diabetes med for over 1 week hb A1c 12 pharmacy consulted for glycemic management cont insulin SSI basal lantus personal development educator consult (5) Tobacco abuse: Counseling on smoking cessation Consider to add nicotine patch once r/o acs (6) Asthma: no complain of cough no wheeze or SOB Has not been taking her inhaler Dulera/singular/Ventolin Received solumedrol 125 mg IVx 1 in the ER does not need additional Prednisone cont PRN inhaler (7) Anxiety: Continue Celexa 20mg daily On Ativan 0.5 mg prn BID (8) HTN (hypertension): BP fluctuates Continue Lisinopril/metoprolol and imdur Continue monitor BP DVT px on heparin subq Code Status Full CODE Subjective pt says she feels lot better no complain of orthopnea no chest pain /no SOB or MILLER scheduled for cardiac cath tomorrow Physical Exam Constitutional: WD/WN, vitals as above no acute distress Eyes: + anicteric sclerae ENMT: external ear and nose normal, oropharynx normal Neck: trachea midline, no thyromegaly Respiratory: no respiratory distress and no cough Auscultation: + diminished lung sounds and + wheezes; no crackles Cardiovascular: Extremities: + edema bilateral pitting edema + Gastrointestinal (Abdomen): normal bowel sounds, soft, nontender, no hepatosplenomegaly Musculoskeletal: no cyanosis or clubbing, extremities motor strength 5/5 Skin: no rashes, warm and dry Neurologic: PERRL, EOMI, accommodation nl, no face palsy, no dysarthria Psychiatric: A+Ox3, euthymic affect Results & Data Vital Signs (Past 12 Hours) Vital Signs Temp Pulse Resp BP Pulse Ox 10/12/18 16:14 78 111/73 10/12/18 16:11 36.8 C 71 18 96/62 L 94 10/12/18 11:04 36.7 C 76 18 96/63 L 96 10/12/18 07:30 78 16 89 L (1) CAD (coronary artery disease) Associated angina: with stable angina Coronary Disease-Associated Artery/Lesion type: [place] artery [place] vs. transplanted heart: [place] heart Qualified Code(s): I25.118 - Atherosclerotic heart disease of [place] coronary artery with other forms of angina pectoris (2) Diabetes type 2, uncontrolled Glycemic state: with hyperglycemia Qualified Code(s): E11.65 - Type 2 diabetes mellitus with hyperglycemia (3) Asthma Asthma complication type: unspecified Asthma persistence: unspecified Asthma severity: unspecified severity Qualified Code(s): J45.909 - Unspecified asthma, uncomplicated
[2018-10-12] MEDS: LORazepam 0.5 MG TAB PO PRN (19:51)
[2018-10-12] MEDS ORDERED: SODIUM CHLORIDE 0.9% 1000ML 1,000 ML IV SCH (21:45)
[2018-10-12] MEDS: METOPROLOL SUCC 25MG EXT REL TAB PO SCH (22:05)
[2018-10-13] MEDS ORDERED: D5W AND NSS 1,000 ML IV SCH
[2018-10-13] MEDS: INSULIN ASPART 100 UNITS/ML 3 ML PEN SC SCH ×6 (00:09→21:14)
[2018-10-13] MEDS: HEPARIN SOD 5,000 UNIT/0.5 ML VIAL SQ SCH ×3 (04:38→21:16)
[2018-10-13 07:45] LABS: BUN Creatinine Ratio 42.6 (10-20); Calcium 8.4 mg/dl (8.5-10.1); Creatinine Clr Calc Pharmacy 124.2 ml/min; Est GFR (African American) 127.2; Est GFR (Non-African American) 109.7; Potassium 3.8 mmol/L (3.5-5.1)
[2018-10-13] MEDS: ATORVASTATIN 40 MG TAB PO SCH (08:18)
[2018-10-13] MEDS: ASPIRIN 81 MG ECTAB PO SCH (08:18)
[2018-10-13] MEDS: CITALOPRAM 20 MG TAB PO SCH (08:19)
[2018-10-13] MEDS: METOPROLOL SUCC 25MG EXT REL TAB PO SCH (08:19)
[2018-10-13] MEDS: FENOFIBRATE NANOCRYSTALLIZED 48 MG TABLET PO SCH (08:19)
[2018-10-13] MEDS: ALBUTEROL HFA 8 GM INHALER INH SCH ×4 (08:20→21:15)
[2018-10-13] MEDS ORDERED: MIDAZOLAM HCL 1 MG/ML 2ML VIAL ONE (09:02)
[2018-10-13] MEDS ORDERED: fentaNYL citrate 100 MCG/2 ML VIAL ONE (09:02)
[2018-10-13] MEDS ORDERED: NITROGLYCERIN/D5W 100MCG/ML 20ML SYR ONE (09:03)
[2018-10-13] MEDS ORDERED: NiCARDipine HCL INJ 2.5 MG/ML 10 ML AMP ONE (09:03)
[2018-10-13] MEDS ORDERED: HEPARIN (PORCINE) 1000 UNIT/ML 10 ML (CATH LAB USE ONLY) ONE (09:03)
--- NOTE | 2018-10-13 09:48 | Pre Anesthesia Assessment ---
Date of Service October 13, 2018 Pre Sedation Assessment Vital Signs Temp Pulse Pulse Resp BP BP Pulse Ox 10/13/18 08:11 78 106/71 10/13/18 07:01 36.4 C L 73 18 108/69 96 10/13/18 04:10 36.4 C L 71 16 108/67 90 10/13/18 00:16 36.4 C L 77 18 103/68 94 10/13/18 00:00 72 10/12/18 19:47 36.5 C 78 20 96/62 L 92 10/12/18 16:14 78 111/73 10/12/18 16:11 36.8 C 71 18 96/62 L 94 10/12/18 11:04 36.7 C 76 18 96/63 L 96 Cardiovascular + regular rate and + regular rhythm + S1 normal and + S2 normal Respiratory + respiratory effort normal + diminished lung sounds Pre-Sedation Airway Assessment Smoking Status: Current every day smoker Hx Sleep Apnea: No Hx Difficult Intubation: No Short, Thick Neck: No Mallampati Class: III NPO Status Date of Last Intake of Fluids: 10/12/18 Date of Last Intake of Solid Food: 10/12/18 Procedure Planning Contraindications for Sedation: none Current Medications Reviewed: Yes Notes The planned sedation has been discussed with the patient. Informed Consent was obtained. I have identified the patient, determined the appropriateness of sedation and have assessed the patient immediately prior to the procedure. All medicine(s) and interventions are by my order.
[2018-10-13] MEDS ORDERED: NOREPINEPHRINE BITARTRATE 1 MG/ML 4 ML VIAL (CATH LAB USE ONLY) ONE (10:50)
--- NOTE | 2018-10-13 10:52 | Cardiac Catheterization ---
Cardiac Cath Procedure: Brief Procedure Date October 13, 2018 Pre-Procedure Diagnosis Pre-Procedure Diagnosis: Non STEMI, CHF and Cardiomyopathy AUC Score AUC Score: 8 Post-Procedure Diagnosis Post-Procedure Diagnosis: Severe CAD Procedure(s) Performed Procedure(s) Performed: Coronary Angiography and Left Heart Cath Mattress Inspector Marco Hinojosa MD Water Jet Operator(s) Christiana Becerra Estimated Blood Loss Estimated Blood Loss: <15cc Medication(s) Medication(s): Lidocaine 1% (Local infiltration access sites) Preliminary Findings Right dominant anatomy. Severe coronary artery disease Chronic right coronary occlusion proximally 100% very shortly after origin Left anterior descending 99% mid vessel stenosis after first diagonal branch with MARGARETTE II grade flow beyond compromising LAD D distribution as well as right coronary artery collaterals Left main large caliber and free of significant disease with mild calcification noted Left anterior descending: Type III in distribution giving rise to a small diagonal followed by a large diagonal in its proximal third. Second large diagonal branch is multi-branching and reaches to the apex. The proximal LAD has moderate diffuse atherosclerosis and calcification, beyond the second diagonal left anterior descending has a high-grade 99% stenosis distal vessel fills with MARGARETTE II flow to the apex Left circumflex large but nondominant consisting of a large old obtuse marginal 3 small posterior lateral branches. Within the left circumflex there is mild irregularities. Circumflex obtuse marginal has a long 40% narrowing.\ Ramus intermedius: This is a small nondiseased vessel Right coronary artery: Dominant distribution by review. The right coronary is 100% occluded after its sinoatrial and conus branch. The mid vessel fills faintly via right to right collaterals. The distal vessel fills thinly via left to right collateral flow ensuring the posterior descending artery and the posterior ventricular branches LV angiography not performed LVEDP 26 Recommendations Recommendations: PCI without planned CABG Specimens Specimens: None Fluids (cc crystalloids) Fluids (cc crystalloids): 95 Anesthesia Start time: 58, stop time: 1031 Procedural Complication(s) Attempt made for right radial access unsuccessfully procedure switch to right femoral access
--- NOTE | 2018-10-13 10:59 | Cardiac Catheterization ---
Cardiac Cath Procedure Full Procedure Date October 13, 2018 Pre-Procedure Diagnosis Pre-Procedure Diagnosis: Non STEMI, CHF and Cardiomyopathy AUC Score AUC Score: 8 Post-Procedure Diagnosis Post-Procedure Diagnosis: Severe CAD Procedure(s) Performed Procedure(s) Performed: Coronary Angiography and Left Heart Cath Factory Manager Marco Hinojosa MD Cashiers Supervisor(s) Christiana Becerra Estimated Blood Loss Estimated Blood Loss: <15cc Medication(s) Medication(s): Lidocaine 1% (Local infiltration access sites) Summary of Findings Right dominant anatomy. Severe coronary artery disease Chronic right coronary occlusion proximally 100% very shortly after origin Left anterior descending 99% mid vessel stenosis after first diagonal branch with MARGARETTE II grade flow beyond compromising LAD D distribution as well as right coronary artery collaterals Left main large caliber and free of significant disease with mild calcification noted Left anterior descending: Type III in distribution giving rise to a small diagonal followed by a large diagonal in its proximal third. Second large diagonal branch is multi-branching and reaches to the apex. The proximal LAD has moderate diffuse atherosclerosis and calcification, beyond the second diagonal left anterior descending has a high-grade 99% stenosis distal vessel f ills with MARGARETTE II flow to the apex Left circumflex large but nondominant consisting of a large old obtuse marginal 3 small posterior lateral branches. Within the left circumflex there is mild irregularities. Circumflex obtuse marginal has a long 40% narrowing.\ Ramus intermedius: This is a small nondiseased vessel Right coronary artery: Dominant distribution by review. The right coronary is 100% occluded after its sinoatrial and conus branch. The mid vessel fills faintly via right to right collaterals. The distal vessel fills thinly via left to right collateral flow ensuring the posterior descending artery and the posterior ventricular branches LV angiography not performed LVEDP 26 Hemodynamics Rest Ao:: / Final Ao: // LV: 96// LVEDP 26 Recommendations Recommendations: PCI without planned CABG Specimens Specimens: None Radiation Exposure (mGy) 989 Contrast (mls) 56 Fluids (cc crystalloids) Fluids (cc crystalloids): 95 Anesthesia Start time: 58, stop time: 1031 Procedural Complication(s) Attempt made for right radial access unsuccessfully procedure switch to right femoral access ACC Data: Autoclave Operator Cardiac Status Clinical evaluation leading to the procedure Patient is a 53-year-old female with known coronary artery disease with prior inferior myocardial infarction 2012 treated with ultimate right coronary stenting for single-vessel disease. Repeat cardiac catheterization 2016 demonstrated occluded right coronary artery but no high-grade disease and left coronary anatomy. Patient presented with crescendo symptoms and heart failure over 2-week interval. Echocardiogram demonstrates new anterior apical LAD distribution wall motion abnormalities and diminished LV systolic function CAD Presenation: Non STEMI and Unstable angina Anginal Classification: CCS III Heart Failure: NYHA Class: CCS III Cardiogenic Shock within 24 Hours: No Cardiac Arrest within 24 Hours: No Imaging Studies Past 6 Months: Yes Stress Studies Past 6 Months: No Standard Exercise Test: No Stress Echocardiogram: No Stress Testing w/SPECT MPI: No Cardiac CTA: No Coronary Anatomy Dominant: Right Left Main (% Stenosis): Normal LAD (% Stenosis): Proximal, Mid (99) and Normal D1 (% Stenosis): Normal Circumflex (% Stenosis): Normal OM1 (% Stenosis): Proximal (30) OM3 (% Stenosis): Normal L PL1 (% Stenosis): Normal RCA (% Stenosis): Proximal (100) Diagnostic Physicians Name: Marco Hinojosa MD Status: Urgent Closure Device Percutaneous Entry Location: Femoral Recommendations: PCI without planned CABG
[2018-10-13] MEDS ORDERED: ONDANSETRON INJ 2 MG/ML 2 ML VIAL ONE (11:23)
[2018-10-13] MEDS ORDERED: TICAGRELOR 90 MG TAB PO ONE (11:41)
--- NOTE | 2018-10-13 11:42 | Post Anesthesia Assessment ---
Date of Service October 13, 2018 Post Sedation Assessment Vital Signs Temp Pulse Pulse Resp BP BP Pulse Ox 10/13/18 08:11 78 106/71 10/13/18 07:01 36.4 C L 73 18 108/69 96 10/13/18 04:10 36.4 C L 71 16 108/67 90 10/13/18 00:16 36.4 C L 77 18 103/68 94 10/13/18 00:00 72 10/12/18 19:47 36.5 C 78 20 96/62 L 92 10/12/18 16:14 78 111/73 10/12/18 16:11 36.8 C 71 18 96/62 L 94 Recovery Score Activity: Moves 4 extremities Respiration: Deep Breath/Cough Circulation: +/-20% PreAnes Value Consciousness: Fully Awake Oxygen Saturation: O2 needed for >90% Discharge Sedation Level of Care: Fast Track Phase II Post Sedation Plan On clinical assessment, the patient appears to have tolerated the sedation without complications. Patient is recovering as anticipated. Patient will continue to be monitored by nursing and may be discharged when sedation discharge criteria are met per below protocol. Upon Completions of procedure and additional 15 minutes continue every 5 minute vital signs and the P.A.R. score; then discharge to a Phase I or Fast Track to Phase II per the following guidelines: * Discharge Patient to appropriate Phase II area if PAR is 8 or greater or return to pre- procedure baseline. The post - procedure orders will be as directed. * If PAR score is less than 8 or not return to pre-procedure baseline then patient will follow Phase I monitoring till PAR is reached for Phase II. The Phase I may be done in procedure room or may call to secure a Phase I area. * If naloxone or flumazenil are used for reversal, hold in Phase I for continued monitoring from when last reversal dose was given for a minimum of 60 minutes or longer pending the nurse and/or physician discretion of patient condition before discharge to Phase II. Please call the Sedation Physician to re-evaluate and complete post-note for discharge to Phase II area. Do NOT discharge from procedure sedation or Phase 1 until post- sedation evaluation note is complete by procedure /sedation MD Sedation Discharge Instructions to be given to the patient at discharge to home.
[2018-10-13] MEDS ORDERED: ONDANSETRON INJ 2 MG/ML 2 ML VIAL IV PRN (11:55)
--- NOTE | 2018-10-13 11:55 | Cardiac Catheterization ---
Cardiac Cath Procedure Full Procedure Date October 13, 2018 Pre-Procedure Diagnosis Pre-Procedure Diagnosis: Non STEMI, CHF and Cardiomyopathy AUC Score AUC Score: 8 Post-Procedure Diagnosis Post-Procedure Diagnosis: Severe CAD and Successful PCI Procedure(s) Performed Procedure(s) Performed: Coronary Angiography, Drug Eluting Stent and Femoral Artery Angiography Senior Sql Server Developer Leonel Kaur MD Inside [employer] Sales(s) Christiana Becerra Estimated Blood Loss Estimated Blood Loss: <15cc Medication(s) Medication(s): Fentanyl, Heparin, Lidocaine 1% (Local infiltration access sites), Nitroglycerin and Versed Medication(s): Ticagrelor Summary of Findings Indication: Severe LV dysfunction, multivessel disease Access: 6 Fr right PUBLIC RELATIONS ASSOCIATE Catheters: EBU 3.75 guide Findings: For full details of patient's coronary angiography please cath report dictated by Dr. Hinojosa. Briefly, patient found to have severe multivessel vessel disease including a 95+ % stenosis involving the mid LAD at bifurcation of large first diagonal with distal MARGARETTE II flow. Decision to proceed with PCI. -- PCI -- Antithrombotic therapy: Heparin, ticagrelor Procedure: Left main cannulated with EBU 3.75 guide Vegetable Cutter 50 wire passed across lesion into distal vessel Pro-water wire passed into first diagonal Mid LAD lesion predilated with 2.5 compliant balloon IVUS used to assess extent of disease, calcification. Found to have diffuse, mildly calcified disease extending from first septal across diagonal in the mid segment. Evidence of disease in ostium of diagonal Dilated lesion stented with 2.75 x 22 mm [place] drug-eluting stent First diagonal rewired with whisper wire Stent post-dilated with 3.0 noncompliant balloon Post NC balloon patient became increasingly hypotensive, nauseated and noted to have no flow in the first diagonal. Started on norepinephrine First diagonal ballooned with 1.5 and 2.0 balloon with reestablished MARGARETTE-3 flow IC vasodilators administered for spasm Post procedure MARGARETTE 3 flow, stent well expanded with minimal residual stenosis and no apparent cardiac complications. Norepinephrine weaned off. Patient chest pain-free post procedure Arterial Closure: Angio-Seal Summary: 1.Successful PCI of mid LAD with single drug-eluting stent (2.75 x 22 mm Garett; postdilated with 3.0 balloon). 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 Continue dual-antiplatelet therapy for at least one year, consider extended Continue statin, and ASCVD risk factor modification Consult cardiac Rehab Hemodynamics Rest Ao:: 94/59/74 Final Ao: 124/78/97 LV: -- Recommendations Recommendations: PCI without planned CABG Specimens Specimens: None Radiation Exposure (mGy) 2743 Contrast (mls) 140 Drains Drains: none Anesthesia moderate Procedural Complication(s) None Attempt made for right radial access unsuccessfully procedure switch to right femoral access 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 Cardiac Status Clinical evaluation leading to the procedure CAD Presenation: Non STEMI Anginal Classification: CCS III Heart Failure: NYHA Class: CCS IV Cardiogenic Shock within 24 Hours: No Cardiac Arrest within 24 Hours: No Imaging Studies Past 6 Months: Yes Stress Studies Past 6 Months: No Diagnostic Physicians Name: Leonel Kaur MD Status: Elective Closure Device Recommendations: PCI without planned CABG PCI Indication: PCI for high risk Non-BIJAN Lesion Segment Name: mid LAD Culprit Artery: Yes Stenosis Prior to Rx (%): 95 Chronic Total Occlusion: No IVUS: Yes FFR: No Pre-Procedure MARGARETTE Flow: 2 Previously Treated Lesion: No Lesion Complexity: High/C Lesion Length (mm): 20 Thrombus Present: Yes Bifurcation Lesion: Yes Guidewire Across Lesion: Post-Procedure MARGARETTE Flow: 3 Devices(s) Deployed: Yes Yes Intraprocedure Events Significant Disection: No Perforation: No
[2018-10-13] MEDS ORDERED: SODIUM CHLORIDE 0.9% 1000ML 1,000 ML IV SCH (12:00)
[2018-10-13] MEDS ORDERED: INSULIN GLARGINE SOLOSTAR 100 UNITS/ML 3 ML PEN SC ONE (12:30)
--- NOTE | 2018-10-13 13:02 | Hospitalist Progress Note ---
Date of Service October 13, 2018 Assessment & Plan (1) Acute systolic (congestive) heart failure: CXR on admission interval development of congestive failure/fluid overload with small bilateral pleural effusions CTA chest showed congestive heart failure with findings of bilateral pleural effusions. No evidence of PE BNP on admission 3592 Patient responded with diuresis with IV Lasix appreciate input from Cardiology ECHO:EF 25-30%, Grade 3 diastolic dysfunction IV diuresis as per cardiology Monitor I's and O's, daily weight, electrolytes, renal function (2) Elevated troponin: NSTEMI S/P Cardiac Cath: Successful PCI of mid LAD with single drug-eluting stent. POB 8 to ostium of first diagonal with 2.0 balloon ECHO: Extensive septal, apical infarct thinning and akinesis and aneurysmal expansion of the septum and apex. Inferior wall is severely hypokinetic to akinetic. EF 25 to 30%. Diastolic dysfunction, grade 3. 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 (5) Tobacco abuse: Counseling on smoking cessation (6) Asthma: Has not been taking her inhaler Dulera/singular/Ventolin Received solumedrol 125 mg IVx 1 in the ER continue PRN inhaler (7) Anxiety: Continue Celexa 20mg daily On Ativan 0.5 mg prn BID (8) HTN (hypertension): Relatively low Resume home meds as able Monitor DVT Px: Heparin SQ Code Status Full CODE Subjective Patient is seen and examined at bedside States feeling tired Reports poor sleep overnight Denies any chest pain, shortness of breath, dizziness, abdominal pain Had cardiac catheterization today Offers no other complaints Review of Systems Review of Systems: All systems reviewed & are unremarkable except as noted in HPI & below Physical Exam Physical Exam: Physical Exam: Vitals signs as noted above General Appearance:Moderately built and nourished, no apparent distress Head: normocephalic, Atraumatic Eyes: normal inspection, EOMI Neck: supple, Trachea midline Respiratory/Chest: Normal breath sounds, CTA Cardiovascular: S1, S2, No murmur Abdomen/GI:Soft, Non tender, Bowel sounds present Extremities/Musculoskelatal:normal inspection, no edema Neurologic/Psych:AAOX3, grossly no focal neurological deficits Skin: normal color, warm Results & Data Vital Signs (Past 12 Hours) Vital Signs Temp Pulse Resp BP BP Pulse Ox 10/13/18 11:55 37 C 82 18 112/78 95 10/13/18 08:11 78 106/71 10/13/18 07:01 36.4 C L 73 18 108/69 96 10/13/18 04:10 36.4 C L 71 16 108/67 90 Laboratory Results BMP 10/13/18 07:05 Sodium 138 Potassium 3.8 Chloride 107 Carbon Dioxide 25 BUN 21 H Creatinine 0.50 L Glucose 137 H Calcium 8.4 L (1) CAD (coronary artery disease) Coronary Disease-Associated Artery/Lesion type: [place] artery [place] vs. transplanted heart: [place] heart Associated angina: with stable angina Qualified Code(s): I25.118 - Atherosclerotic heart disease of [place] coronary artery with other forms of angina pectoris (2) Diabetes type 2, uncontrolled Glycemic state: with hyperglycemia Qualified Code(s): E11.65 - Type 2 diabetes mellitus with hyperglycemia (3) Asthma Asthma severity: unspecified severity Asthma persistence: unspecified Asthma complication type: unspecified Qualified Code(s): J45.909 - Unspecified asthma, uncomplicated
--- NOTE | 2018-10-13 13:58 | Cardiology Progress Note ---
Date of Service October 13, 2018 Assessment & Plan (1) Acute systolic (congestive) heart failure: Secondary to ischemic cardiomyopathy. Patient underwent diagnostic cardiac catheterization earlier today with severe multivessel disease discern, chronic right coronary occlusion high-grade LAD at first/second diagonal Patient underwent coronary intervention, left anterior descending and angioplasty the diagonal Left ventricular end-diastolic pressure elevated as expected given severe LV dysfunction Plan continue metoprolol succinate with reduced dose to daily, aspirin and Brilinta We will cautiously re-titrate RIOS inhibitor and diuretics in a.m. (2) Ischemic cardiomyopathy: Isosorbide and lisinopril remain on hold given relatively soft blood pressures We will retrial low-dose lisinopril in a.m. Follow LV function as outpatient regarding potential future needs for pacer defibrillator given degree of LV dysfunction on initial echocardiogram (3) History of coronary artery stent placement: (4) Diabetes type 2, uncontrolled: Subjective Patient examined after diagnostic cardiac catheterization this morning. No current complaints. Patient had transient hypotension during coronary interv ention which is resolved. No chest pains orthopnea while lying flat Right groin access site healing Physical Exam Constitutional: well nourished; no acute distress Eyes: PERRL, conjunctivae normal, anicteric sclerae ENMT: external ear and nose normal, oropharynx normal Neck: trachea midline, no thyromegaly Respiratory: normal respiratory effort, lungs clear to auscultation Cardiovascular: RRR, no murmur, no edema Gastrointestinal (Abdomen): normal bowel sounds, soft, nontender, no hepatosplenomegaly Results & Data Vital Signs (Past 12 Hours) Vital Signs Temp Pulse Resp BP BP Pulse Ox 10/13/18 13:40 63 18 93/65 L 96 10/13/18 13:10 64 16 92/66 L 96 10/13/18 12:40 76 16 97/68 L 95 10/13/18 12:25 74 16 97/69 L 96 10/13/18 12:10 72 16 95/63 L 95 10/13/18 11:55 37 C 82 18 112/78 95 10/13/18 08:11 78 106/71 10/13/18 07:01 36.4 C L 73 18 108/69 96 10/13/18 04:10 36.4 C L 71 16 108/67 90 Laboratory Results Laboratory Results - last 24 hr 06/10/12/18 10/12/18 16:29 20:34 20:35 Activ Coag Time Kaolin Sodium Potassium Chloride Carbon Dioxide Anion Gap BUN Creatinine Est Cr Clr Drug Dosing Est GFR ( Amer) Est GFR (Non-Af Amer) BUN/Creatinine Ratio Glucose POC Glucose 167 H 307 H* 306 H* Calcium 10/12/18 10/13/18 10/13/18 23:47 04:19 06:01 Activ Coag Time Kaolin Sodium Potassium Chloride Carbon Dioxide Anion Gap BUN Creatinine Est Cr Clr Drug Dosing Est GFR ( Amer) Est GFR (Non-Af Amer) BUN/Creatinine Ratio Glucose POC Glucose 270 H 158 H 128 H Calcium 10/13/18 10/13/18 10/13/18 07:05 07:08 10:54 Activ Coag Time Kaolin 219 H Sodium 138 Potassium 3.8 Chloride 107 Carbon Dioxide 25 Anion Gap 6.0 BUN 21 H Creatinine 0.50 L Est Cr Clr Drug Dosing 124.2 Est GFR ( Amer) 127.2 Est GFR (Non-Af Amer) 109.7 BUN/Creatinine Ratio 42.6 H Glucose 137 H POC Glucose 160 H Calcium 8.4 L 10/13/18 11:12 Activ Coag Time Kaolin 296 H Sodium Potassium Chloride Carbon Dioxide Anion Gap BUN Creatinine Est Cr Clr Drug Dosing Est GFR ( Amer) Est GFR (Non-Af Amer) BUN/Creatinine Ratio Glucose POC Glucose Calcium (1) Diabetes type 2, uncontrolled Glycemic state: with hyperglycemia Qualified Code(s): E11.65 - Type 2 diabetes mellitus with hyperglycemia
--- NOTE | 2018-10-13 14:22 | Pharmacy Report ---
Pharmacy Glycemic Short Note 2 - Date of Service October 13, 2018 - Glycemic Short BSG Results (Last 24 hours): 10/12/18 10/12/18 10/12/18 16:29 20:34 20:35 Glucose POC Glucose 167 H 307 H* 306 H* 10/12/18 10/13/18 10/13/18 23:47 04:19 06:01 Glucose POC Glucose 270 H 158 H 128 H 10/13/18 10/13/18 07:05 07:08 Glucose 137 H POC Glucose 160 H OUTPATIENT ANTIDIABETIC REGIMEN: * Jardiance 25 QD * Lantus 45 BID * Metformin 1G QD * Novolog 14 units qam ASSESSMENT: 10/13: * Patients fasting BSG much improved this morning and dextrose infusion was never started overnight. Patient went for cardiac cath procedure @ 0930 and lantus was not ordered until patient returned @ 1230 (administered @ 1400). Patient will likely be NPO most of the day until dinner. Will mildly reduce lantus scale for this evening to try and compensate for this, however patient did require 101 units of insulin yesterday, so I hesitate to reduce too much. 10/12 * Patient reportedly non-compliant with home regimen, thus expect true insulin needs to be much lower. Will utilize weight based stress dosing for lantus scale. Post prandial levels improved, but remain elevated. Will tighten novolog coverage. Patient will be NPO after midnight for cardiac cath @0930 tomorrow morning, however dextrose containing fluids @ 37 ml/hr are ordered to start at that time. Will order novolog 0000,0400 checks for this reason. PLAN FOR INPATIENT GLYCEMIC CONTROL: * Hold outpatient oral diabetes medications * Basal insulin * Lantus 20 units SQ this morning; per scale based on BSG this evening (See MAR for details) * Bolus insulin * NovoLog per scale ACHS or Q6hrs while NPO * Goal Range: Low 110 mg/dL - High 140 mg/dL * Correction Factor: 15 mg/dL/unit * Nutritional / Prandial insulin per carb ratio of 1 unit per 6 grams CHO consumed
[2018-10-13] MEDS: TICAGRELOR 90 MG TAB PO SCH (20:51)
[2018-10-13] MEDS: LORazepam 0.5 MG TAB PO PRN (20:55)
[2018-10-13] MEDS ORDERED: METOPROLOL SUCC 25MG EXT REL TAB PO ONE (21:00)
[2018-10-13] MEDS ORDERED: INSULIN GLARGINE SOLOSTAR 100 UNITS/ML 3 ML PEN SQ SCH (23:00)
[2018-10-14] MEDS: HEPARIN SOD 5,000 UNIT/0.5 ML VIAL SQ SCH ×3 (05:49→22:54)
[2018-10-14 06:14] LABS: Hematocrit (blood only) 41.7 % (37-47); Hemoglobin 13.3 g/dL (12.0-16.0); Mean Corpuscular Hgb Conc 31.9 g/dL (32-36); Mean Corpuscular Volume 90.7 fL (80-100); Mean Platelet Volume 9.4 fL (7.4-10.4); Platelet Count 321 K/uL (130-400); RDW Coefficient of Variation 14.9 % (11.5-14.5); RDW Standard Deviation 49.3 fL (36.4-46.3); White Blood Count 10.04 K/uL (4.8-10.8)
[2018-10-14 06:54] LABS: BUN Creatinine Ratio 32.5 (10-20); Creatinine Clr Calc Pharmacy 144.5 ml/min; Est GFR (African American) 133.6; Est GFR (Non-African American) 115.3; Potassium 3.9 mmol/L (3.5-5.1)
[2018-10-14] MEDS: INSULIN ASPART 100 UNITS/ML 3 ML PEN SC SCH ×4 (08:46→21:03)
--- NOTE | 2018-10-14 08:46 | Pharmacy Report ---
Pharmacy Glycemic Short Note 2 - Date of Service October 14, 2018 - Glycemic Short BSG Results (Last 24 hours): 10/13/18 10/13/18 10/13/18 07:08 12:01 15:57 Glucose POC Glucose 160 H 205 H 229 H 10/13/18 10/13/18 10/14/18 20:31 23:05 05:16 Glucose 135 H POC Glucose 136 H 109 H OUTPATIENT ANTIDIABETIC REGIMEN: * Jardiance 25 QD * Lantus 45 BID * Metformin 1G QD * Novolog 14 units qam ASSESSMENT: * 53yo T2DM female with poor outpatient control secondary to non-compliance. A1c = 12.5% on 10/13/18 * Pt has been receiving SQ basal bolus insulin regiment with Lantus + NovoLog with near-adequate control * Pt currently receiving ~ 50 units of insulin per day * BSGs rnging 136-229mg/dl * AM fasting BSG is in goal range at 135 mg/dl this morning with 30 units of basal insulin. Currently ordered as 20 units in AM + 10 units in PM. Will simplify regimen and change to Lantus 30 units SQ 24hrs given in AM * Post-prandial BSGs are elevated at 205, 229 mg/dl. Will tighten CR. * NovoLog dose tend to catch up throughout the day as HS BSG is in goal range. Will loosen CF to prevent low when aggressive CR given + CF insulin. Pt needs aggressive CHO coverage but may be too much when combined with CF at elevated BSGs PLAN FOR INPATIENT GLYCEMIC CONTROL: * Hold outpatient oral diabetes medications * Basal insulin * Lantus 30 units SQ daily in AM {change to Q24 hr dosing for simplicity & prepping for DC} * Bolus insulin * NovoLog per scale ACHS or Q6hrs while NPO * Goal Range: Low 110 mg/dL - High 140 mg/dL * Correction Factor: 20 mg/dL/unit {loosen} * Nutritional / Prandial insulin per carb ratio of 1 unit per 5 grams CHO consumed {tighten} Discharge Recs: * A1c = 12.5 % on 10/13/18 * Pt specific goal A1c is ~ 7% * A1c goal should be individualized based on risk of hypo/drug AE, disease duration, life expectancy, relevant co-morbidities, established vascular complication, patient attitude and expected treatment efforts, resources and support system. * A reasonable A1C goal for many non adults is <7% * A1c is greater than or equal to 10% consider metformin + combination i njectable therapy (basal insulin + rapid acting insulin OR GLP1-RA) * Metformin, if not contraindicated and if tolerated, is the preferred initial pharmacological agent for type 2 diabetes. Metformin has a long- standing evidence base for efficacy and safety, is inexpensive, and may reduce risk of cardiovascular events. 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 * Metformin XR 500mg PO daily with evening meal. Continue to titrate metformin dosing upwards as recommended. Dosage increases should be made in increments of 500 mg weekly, up to 2,000 mg/day PO, given in divided doses. Doses above 2000 mg/day may be better tolerated if divided and given 3 times per day with meals. Max: 2,550 mg/day PO, in divided doses * Lantus 30 units SQ daily in AM + NovoLog 10 units SQ TIDM {could consider a GLP-[address] NovoLog if cost is not an issue} * If Lantus + Log is too cumbersome, may consider premixed insulin with Novolin 70/30 insulin 40 units SQ in AM with breakfast + 20 units SQ in PM with dinner. Additional lifestyle modifications * Support Patient Self-Management * Healthy Lifestyle (diet, exercise, and smoking cessation) * Disease self-management (SMBG) * Prevention of complications (BP, Lipid goals, Immunizations) * Consider outpatient Diabetes Self-Management Education & Support
[2018-10-14] MEDS: INSULIN GLARGINE SOLOSTAR 100 UNITS/ML 3 ML PEN SC SCH (08:47)
[2018-10-14] MEDS: ASPIRIN 81 MG ECTAB PO SCH (08:48)
[2018-10-14] MEDS: METOPROLOL SUCC 25MG EXT REL TAB PO SCH (08:48)
[2018-10-14] MEDS: TICAGRELOR 90 MG TAB PO SCH ×2 (08:48→21:01)
[2018-10-14] MEDS: ATORVASTATIN 40 MG TAB PO SCH (08:48)
[2018-10-14] MEDS: CITALOPRAM 20 MG TAB PO SCH (08:48)
[2018-10-14] MEDS: ALBUTEROL HFA 8 GM INHALER INH SCH ×2 (08:49→13:21)
[2018-10-14] MEDS ORDERED: AMIODARONE 150MG / 100ML D5W IV ONE ×3 (11:45→12:07)
[2018-10-14] MEDS ORDERED: PROPOFOL IV EMULSION 10 MG/ML 100 ML VIAL IV ONE (11:59)
[2018-10-14] MEDS ORDERED: LISINOPRIL 2.5 MG TAB PO SCH (12:00)
[2018-10-14] MEDS ORDERED: AMIODARONE / D5W 150 MG/100 ML BAG IV STA (12:00)
[2018-10-14] MEDS: AMIODARONE 360MG / 200ML D5W IV ONE ×2 (12:21→13:15)
--- NOTE | 2018-10-14 12:27 | Procedure Note ---
Procedure Note Date of Service October 14, 2018 Procedure date: Noted above Procedure: Cardioversion Diagnosis: Stable ventricular tachycardia refractory to medical management Prior to Procedure: Informed Consent: The risks, benefits, indications, potential complications, and alternatives were explained to the patient. The patient consented. Attending Staff: Dr. Landaverde Anesthesia: Procedural sedation with propofol The identity of the patient was confirmed. Description of Procedure: The rhythm was confirmed to be ventricular tachy cardia. Procedural sedation with propofol was administered. Synchronized cardioversion was performed with 200J. The patient reverted back to sinus rhythm. Her oxygen saturations dropped to the 80s, and she was subsequently ventilated using a bag valve mask. Her saturations improve to over 95% and she was placed on BiPAP afterwards. I provided the sedation for the patient, the patient presented to the hospital with sustained symptomatic V. tach. I supervised Dr. Morrison with Dr. Hinojosa from cardiology, the patient received total of 100 mg of propofol and 20 mg increments every 2 minutes. The patient maintained her airways and her level of consciousness also was assessed in addition to her tidal volume and end-tidal CO2 as well as monitoring her in bed for an ICU with ICU type of monitoring. The patient did receive a single shock of 200 J biphasic current, and converted from V. tach to normal sinus rhythm with a rate of 80, blood pressure and vital signs remained stable. The patient did have a brief. For a few seconds of hypoxia requiring ambo bagging and was placed on the BiPAP due to her obstructive lung disease, she was able to be taken off the BiPAP 15 minutes later. She is awake following commands answering questions maintaining her airways and currently she is on a nasal cannula of 4 L with O2 sat of 98% and respiratory rate of 16 with end-tidal CO2 of 32. The rest of her vital signs showed blood pressure of 108/72 with a map of 79, and following commands answering questions, positive JVD, S1-S2, normal sinus rhythm, crackles at the bases, abdomen is benign, trace edema in the periphery. The patient had a chest x-ray which showed pulmonary edema requiring diuretics. The patient tolerated the procedure well, no immediate complication, appreciate all involved in the assistance. Thank you Coding CPT Codes Sedation/Anesthesia - Sedation/Anesthesia: Mod Sedation by the same physician; Ea [id number] Minutes ([id number]) Resident Activity Tracking Resident Involvement: Resident Care Provided Care Provided: [facility]
[2018-10-14 12:35] LABS: Albumin Level 3.2 gm/dl (3.4-5.0); BUN Creatinine Ratio 25.1 (10-20); Bilirubin Direct 0.1 mg/dl (0-0.2); Calcium 9.4 mg/dl (8.5-10.1); Creatinine Clr Calc Pharmacy 124.3 ml/min; Est GFR (African American) 127.2; Est GFR (Non-African American) 109.7
[2018-10-14 12:43] LABS: Albumin Globulin Ratio 0.9 (0.9-2); Bilirubin,Total 0.5 mg/dl (0.2-1); Globulin 3.6 gm/dl (2.5-4.0); Total Protein 6.9 gm/dl (6.4-8.2); Troponin I 0.401 ng/ml (0-0.045)
--- NOTE | 2018-10-14 12:45 | Hospitalist Progress Note ---
Date of Service October 14, 2018 Assessment & Plan (1) V-tach: Develop sustained V. tach in PCU leading to hemodynamic instability not responding to IV amiodarone required ICU transfer followed by DC cardioversion Severe ischemic cardiomyopathy with Severely reduced ejection fraction, Appreciate input from cardiology and napkin machine operator Patient will be continued with amiodarone, plan to transition to oral after loading dose Monitor electrolytes very closely, keep potassium above 4, magnesium level of 2 Patient will need AICD prior to discharge possibly early next week/ EP cardiology updated Present on Admission?: No (2) Acute systolic (congestive) heart failure: worsening of pulmonary congestion noted in Cxray after sustained Vtach this morning ordered for 20 mg Iv Lasix after D/w Nut Roaster Helper and Cardiology admitted with non-ST elevated PR with late presentation, underlying severe ischemic cardiomyopathy with worsening of SOB /Orthopena/lower extremity swelling CXR on admission interval development of congestive failure/fluid overload with small bilateral pleural effusions CTA chest showed congestive heart failure with findings of bilateral pleural effusions. No evidence of PE pt got low dose IV Lasix ( 20 mg ) intermittently as BP remains borderline low appreciate input from Cardiology ECHO:EF 25-30%, Grade 3 diastolic dysfunction Cardiac cath shows severe coronary artery disease S/P LUCIANO stent in LAD (3) Elevated troponin: NSTEMI S/P Cardiac Cath: Successful PCI of mid LAD with single drug-eluting stent. POB 8 to ostium of first diagonal with 2.0 balloon ECHO: Extensive septal, apical infarct thinning and akinesis and aneurysmal expansion of the septum and apex. Inferior wall is severely hypokinetic to akinetic. EF 25 to 30%. Diastolic dysfunction, grade 3. Continue aspirin, metoprolol, statin cont on Brilinta Appreciate Cardiology Input Isosorbide, lisinopril on hold now as pt as BP was low after persistent Vtach (4) CAD (coronary artery disease): H/O CAD with chronic occlusion of RCA noted in past cardiac cath repeat Cath shows severe CAD in LAD distribution s/p LUCIANO stent in LAD pt will cont with Brillinta severe cardiomyopathy with reduced EF 25-30% noted post NSTEMI scheduled for AICD next week (5) Diabetes type 2, uncontrolled: Non compliant with insulin/and oral med Has not been taking her diabetes med for over 1 week Hb A1c 12 pharmacy consulted for glycemic management cont insulin SSI, basal [place] hematology nurse educator consulted (6) Tobacco abuse: Counseling on smoking cessation (7) Asthma: Has not been taking her inhaler Dulera/singular/Ventolin no wheeze or cough continue PRN inhaler (8) Anxiety: (9) HTN (hypertension): BP remains low post DC cardioversion for non sustained Vtach hold Lisinopril and Imdur for now Lopressor with holding parameters DVT Px: SCD and teds Heparin SQ,will be held on Wednesday for AICD procedure on Wednesday Code Status Full CODE DISPOSITION ; expected to be discharged home when medically stable Subjective Patient went into V. tach with sustained rhythm, "CODE PURPLE " was called given loading dose of IV amiodarone Cardiology Dr. Hinojosa Was at bedside Patient was transferred to ICU, Remains in sustained V. tach with heart rate in 170s Patient was found to be hypotensive with systolic of 80s, heart rate converted Was given IV sedation propofol by the napkin machine operator, Ordered DC cardioversion BY cardiology Resolution of V. tach after cardioversion Patient required BiPAP briefly during and post cardioversion Managed to regain consciousness within few minutes, BiPAP weaned off nasal cannula, Patient able to converse, and awake and alert oriented x3 Seriousness of this cardiac events explained to patient By cardiology at bedside Given severe ischemic cardiomyopathy, low EF of 25%, persistent V. tach: High risk of sudden cardiac Will need AICD this admission Procedure will be scheduled for Wednesday October 17, 2018 EP cardiology updated by Dr. Hinojosa already Patient will be continued to be monitored in ICU for 24 hours to assess hemodynamic stability Physical Exam Constitutional: WD/WN, vitals as above no acute distress Eyes: + anicteric sclerae ENMT: external ear and nose normal, oropharynx normal Neck: trachea midline, no thyromegaly Respiratory: no respiratory distress and no cough Auscultation: + diminished lung sounds and + wheezes; no crackles Cardiovascular: Extremities: + edema Gastrointestinal (Abdomen): normal bowel sounds, soft, nontender, no hepatosplenomegaly Musculoskeletal: no cyanosis or clubbing, extremities motor strength 5/5 Skin: no rashes, warm and dry Neurologic: PERRL, EOMI, accommodation nl, no face palsy, no dysarthria Psychiatric: A+Ox3, euthymic affect Results & Data Vital Signs (Past 12 Hours) Vital Signs Temp Pulse Pulse Resp BP Pulse Ox 10/14/18 12:15 74 28 H 93 10/14/18 11:43 169 H 24 115/75 93 10/14/18 11:38 171 H 24 99/81 L 94 10/14/18 11:35 36.4 C L 173 H 18 113/84 94 10/14/18 10:41 36.9 C 70 18 97/59 L 96 10/14/18 08:01 76 10/14/18 07:52 36.5 C 74 18 121/81 93 10/14/18 03:39 36.7 C 73 18 108/70 95 (1) CAD (coronary artery disease) Associated angina: with stable angina Coronary Disease-Associated Artery/Lesion type: makah artery [place] vs. transplanted heart: makah heart Qualified Code(s): I25.118 - Atherosclerotic heart disease of makah coronary artery with other forms of angina pectoris (2) Diabetes type 2, uncontrolled Glycemic state: with hyperglycemia Qualified Code(s): E11.65 - Type 2 diabetes mellitus with hyperglycemia (3) Asthma Asthma complication type: unspecified Asthma persistence: unspecified Asthma severity: unspecified severity Qualified Code(s): J45.909 - Unspecified asthma, uncomplicated
[2018-10-14] MEDS ORDERED: PROCHLORPERAZINE 5 MG in SYRINGE 4 ML IV ONE (12:50)
[2018-10-14] MEDS ORDERED: AMIODARONE IV BOLUS / DRIP IV STA (12:59)
[2018-10-14] MEDS ORDERED: AMIODARONE / D5W 360 MG/200 ML BAG IV SCH (13:00)
--- NOTE | 2018-10-14 13:02 | XRay Report ---
XR chest 1V portable CLINICAL HISTORY: 53 years-old Female presenting with CHF//Vtach. TECHNIQUE: Portable upright AP view of the chest was obtained. COMPARISON: 10/11/2018. FINDINGS: Atherosclerosis of the aortic arch. Cardiac silhouette enlarged. Pulmonary vascular prominence. Added perihilar density. Interlobular septal thickening. Resolution of prior left pleural effusion. No pne umothorax. Degenerative changes of the thoracic spine. Numerous external leads project over the thora x to grating evaluation. Upper abdomen normal. IMPRESSION: 1. Interval worsening of volume overload and extensive congestive changes with mild pulmonary edema. 2. Resolution of left pleural effusion. Electronically signed by: Felipe Sesay M.D. 10/14/2018 1:00 PM
[2018-10-14] MEDS ORDERED: FUROSEMIDE 20 MG in SYRINGE 0 ML IV ONE (13:30)
--- NOTE | 2018-10-14 13:40 | Critical Care Consultation ---
Date of Consultation October 14, 2018 Assessment & Plan (1) V-tach: Impression: 1. Sustained, symptomatic V. tach with a rate of 160, responded to cardioversion. 2. ST elevation MS, anterior wall, status post 2 LUCIANO to LAD. 3. Ischemic cardiomyopathy, with poor ejection fraction. 4. History of asthma. 5. Type 2 diabetes. 6. Active smoker. Plan: 1. Sedation was provided using propofol, required 100 mg total for the procedure. 2. Continue with amiodarone. 3. Appreciate Dr. Hinojosa and Dr. Cash input. 4. BiPAP as needed. 5. Continue with oxygen. 6. Transduce end-tidal CO2. 7. Oral intake once appropriate. Diabetic and AHA diet. 8. Change bronchodilators to Xopenex. 9. DVT prophylaxis. 10. Change Zofran to Compazine as needed for nausea. Patient is on amiodarone drip. 11. Gentle diuresis. 12. Continue post PCI treatment. Case discussed with the staff on rounds, with Dr. Hinojosa and Dr. Cash, appreciate the input. Critical care time spent with the patient was 45 minutes. History of Present Illness Reason for Consultation: Sustained V. tach Requesting Physician: Dr. Cash Attending Physician: Mary Cash MD History of Present Illness Dear Dr. Hinojosa: Dear Dr. Cash: Thank you for the kind referral Mrs. Wolfe to critical care service. This is 53-year-old female with history of coronary artery disease, status post anterior wall MS, status post PCI with 2 stents placed to the LAD, history of active smoking, CHF, ejection fraction is low, presented to the hospital initially with acute chest pain syndrome and ruled in for anterior wall MS, underwent the above procedure, the patient was on the regular floor when she was doing well and evaluated by cardiology for possible LifeVest. As she was on the regular floor, she started becoming diaphoretic and had significant chest discomfort. The monitor showed wide complex tachycardia consistent with V. tach. The patient transferred to the ICU for further management. I interviewed the patient, the patient was having diaphoresis, tachycardia, tachypnea, blood pressure was in the borderline and she was already started on amiodarone for V. tach. The patient denies any cough or sputum production, review of system was very limited due to the patient condition. In the interim, the patient had one episode of vomiting. But no abdominal pain. She felt slightly nauseous as well. Denies any dizziness or near syncopal episode. No palpitation that she was aware of. The patient was cardioverted after she was sedated with the propofol, requiring a single cardioversion of 200 J, biphasic current. The patient responded well and converted to normal sinus rhythm with a rate of 80. Blood pressure has been maintained and in fact improved after the cardioversion. The patient did have brief. For few seconds of hypoxia requiring ambo bagging and then placed on the BiPAP for 15 minutes. She did well and the BiPAP was taken off 15 minutes afterward. The patient is currently fully awake following commands and answering questions. She underwent a chest x-ray which showed pulmonary edema and she was given a dose of diuretics. The patient also was started on amiodarone drip. Her past medical history as mentioned above. Family history consistent with coronary artery disease also. And she is active smoker but not heavy drinker. She has no surgical intervention done on her chest cavity. Allergies Allergy/AdvReac Type Severity Reaction Status Date / Time Bactrim Allergy Severe "SEVERE GI Verified 04/29/17 15:45 UPSET" mold Allergy Severe SNEEZING, Verified 10/11/18 12:48 WATERY EYES, MAY CAUSE SOB-DEPENDS ON MOLD sulfamethoxazole Allergy Severe "SEVERE GI Verified 10/11/18 12:48 UPSET" trimethoprim Allergy Severe "SEVERE GI Verified 10/11/18 12:48 UPSET" adhesive Allergy Intermediate REDNESS, Verified 10/11/18 12:48 ITCHY, BLISTERS Aminoglycosides Allergy Intermediate ITCHY RASH Verified 10/11/18 12:48 bacitracin Allergy Intermediate ITCHY RASH Verified 10/11/18 12:48 neomycin Allergy Intermediate ITCHY RASH Verified 10/11/18 12:48 polymyxin B Allergy Intermediate ITCHY RASH Verified 10/11/18 12:48 Home Medications Home Medications Medication Instructions Recorded Confirmed Type aspirin 81 mg PO DAILY #0 11/10/14 10/11/18 History insulin aspart U-100 [Novolog 14 unit SUBCUT QAM #0 10/01/15 10/11/18 History Flexpen U-100 Insulin] empagliflozin [Jardiance] 25 mg PO PM #0 05/20/17 10/11/18 History lorazepam 0.5 mg BUCCAL BID PRN #0 02/01/18 06/25/19 History citalopram 20 mg PO DAILY #0 09/23/17 10/11/18 History insulin glargine [Lantus Solostar 45 unit SUBCUT BID #0 09/23/17 10/11/18 History U-100 Insulin] lisinopril 20 mg PO DAILY #0 09/23/17 10/11/18 History montelukast [Singulair] 10 mg PO PM #0 09/23/17 10/11/18 History albuterol sulfate [Ventolin HFA] 1 puff INHALATION Q6H PRN 08/07/18 10/11/18 History atorvastatin [Lipitor] 80 mg PO DAILY 08/07/18 10/11/18 History fenofibrate nanocrystallized 48 mg PO DAILY 08/07/18 10/11/18 History [Tricor] isosorbide mononitrate 60 mg PO QAM 08/07/18 10/11/18 History metformin 1,000 mg PO DAILY 08/07/18 10/11/18 History metoprolol tartrate [Lopressor] 25 mg PO BID 08/07/18 10/11/18 History mometasone-formoterol 2 puff INHALATION BID 08/07/18 10/11/18 History nitroglycerin 0.4 mg SUBLINGUAL UD 10/11/18 10/11/18 History Patient History Medical History Anxiety Asthma HTN (hypertension) Genital herpes (Chronic) Tobacco abuse (Chronic) Chest pain CAD (coronary artery disease) Atypical chest pain Diabetes type 2, uncontrolled Myocardial infarction Diabetes Surgical History Previous section (Chronic) S/P TAO-BSO (Chronic) H/O exploratory laparotomy (Chronic) History of coronary artery stent placement H/O: hysterectomy Family History Other Cancer Diabetes Heart disease Hypertension Social History Preferred Language: Welsh Communication Ability: Effective Director Of Catering Sales Required: No Beliefs That Will Affect Care: None Current Living Situation: Alone Other Information That Helps Us Care for You: No Feels Safe at Home: Yes Safety Concerns: Feels Safe At This Time Smoking Status: Current every day smoker Second Hand Exposure: Yes Tobacco Cessation Education Requested by Patient: No Hx Alcohol Use: No Hx Substance Use: No Review of Systems Review of Systems: Review of system was limited due to patient being in distress, currently patient is asymptomatic from cardiopulmonary standpoint. Diaphoresis also resolved. Physical Exam Physical Exam: Vital signs currently are stable with O2 sat of 96%, on nasal cannula, respiratory rate of 15, vital signs are stable, positive JVD, S1-S2 regular rate and rhythm, distant crackles bilaterally, cold in the periphery, capillary filling is delayed, abdomen is benign, trace edema in the periphery. Neurologically she is intact. Results & Data Vital Signs (Past 12 Hours) Vital Signs Temp Pulse Pulse Resp BP Pulse Ox 10/14/18 12:15 74 28 H 93 10/14/18 11:43 169 H 24 115/75 93 10/14/18 11:38 171 H 24 99/81 L 94 10/14/18 11:35 36.4 C L 173 H 18 113/84 94 10/14/18 10:41 36.9 C 70 18 97/59 L 96 10/14/18 08:01 76 10/14/18 07:52 36.5 C 74 18 121/81 93 10/14/18 03:39 36.7 C 73 18 108/70 95 Laboratory Results Her labs were reviewed, slightly elevated troponin, expected. BUN and creatinine are stable. CBC is stable and bicarb is 26. Diagnostic Findings Chest x-ray consistent with pulmonary edema and cardiomegaly. CAT scan of the chest done on this admission showed bilateral pleural effusion, she does have significant pulmonary edema on that CAT scan as well. No PE. PG Care Time/CCT Critical Care Time: Yes Total Critical Care Time: 45
[2018-10-14] MEDS ORDERED: LEVALBUTEROL HCL 0.63 MG/3 ML NEB NEB PRN (13:41)
[2018-10-14] MEDS ORDERED: PROCHLORPERAZINE 5 MG in SYRINGE 4 ML IV PRN (13:45)
--- NOTE | 2018-10-14 14:31 | Cardiology Progress Note ---
Date of Service October 14, 2018 Assessment & Plan (1) V-tach: Patient was sustained ventricular tachycardia earlier as noted. We had already discussed pacemaker defibrillator and possible LifeVest depending on clinical course Given now ventricular arrhythmia requiring cardioversion to expedite management and plan on pacer defibrillator prior to discharge EKG post cardioversion demonstrated septal Q waves and ST doming consistent with evolving infarct/aneurysm IV amiodarone will be continued with switch to oral in a.m. Continue low-dose Toprol Cautious diuresis Resume lisinopril today (2) Acute systolic (congestive) heart failure: Secondary to ischemic cardiomyopathy. Patient underwent diagnostic cardiac catheterization earlier today with severe multivessel disease discern, chronic right coronary occlusion high-grade LAD at first/second diagonal Patient underwent coronary intervention, left anterior descending and angioplasty the diagonal Left ventricular end-diastolic pressure elevated as expected given severe LV dysfunction Plan cautious diuresis resume lisinopril at reduced dose (3) Ischemic cardiomyopathy: As above (4) History of coronary artery stent placement: (5) Diabetes type 2, uncontrolled: Subjective Patient seen and examined, chart medications telemetry reviewed. Patient last evening without any acute complaints this morning feeling well however late morning patient lapsed into ventricular tachycardia rates 160 to 180 bpm patient with initial tolerance hemodynamically. Patient had no chest pain or worsening shortness of breath. Patient was begun on IV amiodarone with IV amiodarone bolus 150 mg and transferred to the intensive care unit where patient underwent synchronized electrical cardioversion to sinus rhythm. Patient time of cardioversion had had a decline in blood pressure and procedure was performed shy of complete instability Patient tolerated the procedure other than transient need for BiPAP post se dation. One episode of emesis post procedure Patient now comfortable denying any acute complaint post procedure Chest x-ray demonstrates mild edema Physical Exam Constitutional: WD/WN, vitals as above well nourished; no acute distress Eyes: PERRL, conjunctivae normal, anicteric sclerae ENMT: Mallampati Class: III Neck: trachea midline, no thyromegaly Respiratory: normal respiratory effort, lungs clear to auscultation normal respiratory effort Auscultation: + diminished lung sounds and + rales (Mild bibasilar) Cardiovascular: RRR, no murmur, no edema Rate/Rhythm: regular rate and regular rhythm Heart Sounds: normal S1, normal S2 and + gallop Vessels: no carotid bruit, no abdominal aortic bruit and no femoral bruit Extremities: + edema (1-2+ bilateral) Gastrointestinal (Abdomen): normal bowel sounds, soft, nontender, no hepatosplenomegaly Musculoskeletal: no cyanosis or clubbing, extremities motor strength 5/5 Skin: no rashes, warm and dry Results & Data Vital Signs (Past 12 Hours) Vital Signs Temp Pulse Pulse Resp BP BP Pulse Ox 10/14/18 14:00 79 117/76 95 10/14/18 13:30 68 108/72 96 10/14/18 13:00 78 109/76 97 10/14/18 12:35 79 102/70 93 10/14/18 12:30 83 123/87 92 10/14/18 12:25 77 93/61 L 93 10/14/18 12:20 73 84/64 L 94 10/14/18 12:15 75 28 H 87/68 L 94 10/14/18 12:10 74 83/63 L 99 10/14/18 12:06 156 H 154/87 H 90 10/14/18 12:01 156 H 80/47 L 90 10/14/18 11:43 169 H 24 115/75 93 10/14/18 11:38 171 H 24 99/81 L 94 10/14/18 11:35 36.4 C L 173 H 18 113/84 94 10/14/18 10:41 36.9 C 70 18 97/59 L 96 10/14/18 08:01 76 10/14/18 07:52 36.5 C 74 18 121/81 93 10/14/18 03:39 36.7 C 73 18 108/70 95 (1) Diabetes type 2, uncontrolled Glycemic state: with hyperglycemia Qualified Code(s): E11.65 - Type 2 diabetes mellitus with hyperglycemia
[2018-10-14] MEDS: LORazepam 0.5 MG TAB PO PRN (14:44)
[2018-10-14] MEDS ORDERED: PROPOFOL IV EMULSION 10 MG/ML 20 ML VIAL IV STA (15:10)
[2018-10-14 15:16] LABS: Partial Thromboplastin Ratio 0.9; Partial Thromboplastin Time 25.3 Seconds (21.0-31.0); Prothrombin Time 10.4 Seconds (9.0-12.0)
[2018-10-14] MEDS: LEVALBUTEROL 1.25MG/0.5ML NEB NEB SCH ×2 (15:22→19:31)
--- NOTE | 2018-10-14 16:53 | Cardioversion ---
Date of Service October 14, 2018 Electrical Cardioversion Rpt Electrical Cardioversion Report Patient is a 53-year-old female with ischemic cardiomyopathy and prior coronary intervention 10/13/2018 who today developed acute onset ventricular tachycardia with elevated ventricular response rate with mild hemodynamic compromise. Patient did not respond to IV amiodarone load was transferred urgently to the intensive care unit. Patient was sedated via consultation to cardio clinician Dr. Landaverde and single synchronized 200 J biphasic shock administered with successful conversion to sinus rhythm
[2018-10-14] MEDS: AMIODARONE / D5W 360 MG/200 ML BAG IV SCH (18:35)
[2018-10-15] MEDS: INSULIN ASPART 100 UNITS/ML 3 ML PEN SC SCH ×6 (00:43→20:45)
[2018-10-15 04:58] LABS: BUN Creatinine Ratio 24.2 (10-20); Calcium 8.7 mg/dl (8.5-10.1); Creatinine Clr Calc Pharmacy 129.4 ml/min; Est GFR (African American) 128.9; Est GFR (Non-African American) 111.2; Magnesium 1.7 mg/dl (1.8-2.4); Potassium 3.5 mmol/L (3.5-5.1)
[2018-10-15] MEDS: HEPARIN SOD 5,000 UNIT/0.5 ML VIAL SQ SCH ×3 (05:38→20:44)
[2018-10-15] MEDS: AMIODARONE / D5W 360 MG/200 ML BAG IV SCH (05:59)
[2018-10-15] MEDS: ATORVASTATIN 40 MG TAB PO SCH (07:58)
[2018-10-15] MEDS: FENOFIBRATE NANOCRYSTALLIZED 48 MG TABLET PO SCH (07:58)
[2018-10-15] MEDS: TICAGRELOR 90 MG TAB PO SCH ×2 (07:58→21:15)
[2018-10-15] MEDS: METOPROLOL SUCC 25MG EXT REL TAB PO SCH (07:58)
[2018-10-15] MEDS: ASPIRIN 81 MG ECTAB PO SCH (07:58)
[2018-10-15] MEDS: INSULIN GLARGINE SOLOSTAR 100 UNITS/ML 3 ML PEN SC SCH (07:59)
[2018-10-15] MEDS: LEVALBUTEROL 1.25MG/0.5ML NEB NEB SCH ×2 (08:12→11:24)
[2018-10-15] MEDS ORDERED: POTASSIUM CHLORIDE PWD 20 MEQ PACK PO ONE (08:25)
--- NOTE | 2018-10-15 08:32 | Pharmacy Report ---
Pharmacy Glycemic Short Note 2 - Date of Service October 15, 2018 - Glycemic Short BSG Results (Last 24 hours): 10/14/18 10/14/18 10/14/18 07:23 11:33 11:48 Glucose 139 H POC Glucose 153 H 153 H 10/14/18 10/14/18 10/15/18 16:31 20:59 00:38 Glucose POC Glucose 206 H 192 H 173 H 10/15/18 10/15/18 10/15/18 04:06 04:09 07:25 Glucose 175 H POC Glucose 168 H 191 H OUTPATIENT ANTIDIABETIC REGIMEN: * Jardiance 25 QD * Lantus 45 BID * Metformin 1G QD * Novolog 14 units qam ASSESSMENT: 10/15 * Patient was transferred to the ICU last evening for sustained V tach that responded to cardioversion * She was initiated on an amiodarone drip (mixed in dextrose) and was just transitioned to po earlier today * BSGs have increased and are slightly above goal for ICU patient (ranging from 168-206 mg/dL since transfer to the ICU) * I am hesitant to increase the Lantus since the increase in BSGs is most likely from additional dextrose in the amiodarone drip. Will instead tighten CF and continue with lower goal range to provide additional correctional insulin. * Prior to lunch, patient transferred out of the ICU. Her lunch BSG was significantly elevated at 328 mg/dL. I spoke with the ICU nurse - patient had apple juice x 2 that was used to mixed her KCl powder in and this was not covered with insulin. RN on 2S was instructed to give Novolog as ordered. Recheck at 1430 is down to 186 mg/dL. 10/14 * 53yo T2DM female with poor outpatient control secondary to non-compliance. A1c = 12.5% on 10/13/18 * Pt has been receiving SQ basal bolus insulin regiment with Lantus + NovoLog with near-adequate control * Pt currently receiving ~ 50 units of insulin per day * BSGs rnging 136-229mg/dl * AM fasting BSG is in goal range at 135 mg/dl this morning with 30 units of basal insulin. Currently ordered as 20 units in AM + 10 units in PM. Will simplify regimen and change to Lantus 30 units SQ 24hrs given in AM * Post-prandial BSGs are elevated at 205, 229 mg/dl. Will tighten CR. * NovoLog dose tend to catch up throughout the day as HS BSG is in goal range. Will loosen CF to prevent low when aggressive CR given + CF insulin. Pt needs aggressive CHO coverage but may be too much when combined with CF at elevated BSGs PLAN FOR INPATIENT GLYCEMIC CONTROL: * Continue to hold outpatient oral diabetes medications * Basal insulin - no change * Lantus 30 units SQ daily in AM * Bolus insulin - tighten CF * NovoLog per scale ACHS or Q6hrs while NPO * Goal Range: Low 110 mg/dL - High 140 mg/dL * Correction Factor: 18 mg/dL/unit * Nutritional / Prandial insulin per carb ratio of 1 unit per 5 grams CHO consumed Discharge Recs: (from 10/14 note) * A1c = 12.5 % on 10/13/18 * Pt specific goal A1c is ~ 7% * A1c goal should be individualized based on risk of hypo/drug AE, disease duration, life expectancy, relevant co-morbidities, established vascular complication, patient attitude and expected treatment efforts, resources and support system. * A reasonable A1C goal for many non adults is <7% * A1c is greater than or equal to 10% consider metformin + combination injectable therapy (basal insulin + rapid acting insulin OR GLP1-RA) * Metformin, if not contraindicated and if tolerated, is the preferred initial pharmacological agent for type 2 diabetes. Metformin has a long- standing evidence base for efficacy and safety, is inexpensive, and may reduce risk of cardiovascular events. * B12 supplementation may be necessary with course developer metformin use * Recommend Metformin + Lantus + NovoLog fixed dosing vs carb counting if patient is willing. * Metformin XR 500mg PO daily with evening meal. Continue to titrate metformin dosing upwards as recommended. Dosage increases should be made in increments of 500 mg weekly, up to 2,000 mg/day PO, given in divided doses. Doses above 2000 mg/day may be better tolerated if divided and given 3 times per day with meals. Max: 2,550 mg/day PO, in divided doses * Lantus 30 units SQ daily in AM + NovoLog 10 units SQ TIDM {could consider a GLP-[address] of NovoLog if cost is not an issue} * If Lantus + Log is too cumbersome, may consider premixed insulin with Novolin 70/30 insulin 40 units SQ in AM with breakfast + 20 units SQ in PM with dinner. Additional lifestyle modifications * Support Patient Self-Management * Healthy Lifestyle (diet, exercise, and smoking cessation) * Disease self-management (SMBG) * Prevention of complications (BP, Lipid goals, Immunizations) * Consider outpatient Diabetes Self-Management Education & Support
[2018-10-15] MEDS ORDERED: FUROSEMIDE 40 MG in SYRINGE 0 ML IV ONE (08:45)
[2018-10-15] MEDS ORDERED: MAGNESIUM SULFATE / D5W 1 GM/100 ML BAG IV STA (09:09)
[2018-10-15] MEDS ORDERED: MAGNESIUM SULFATE / D5W 1 GM/100 ML BAG IV ONE (09:11)
[2018-10-15] MEDS: LISINOPRIL 2.5 MG TAB PO SCH (09:27)
[2018-10-15] MEDS: MAGNESIUM OXIDE 400 MG TAB PO SCH ×2 (09:27→20:43)
--- NOTE | 2018-10-15 10:16 | XRay Report ---
SINGLE VIEW CHEST CLINICAL HISTORY: Follow-up congestive failure. FINDINGS: An AP, portable, upright chest radiograph is compared to study dated 10/14/2018 and correlat ed with chest CT dated 10/11/2018. The examination is degraded by portable technique and patient rotat ion. The heart is enlarged and there is atherosclerotic calcification of the thoracic aorta. There is pulmonary vascular congestion and mild interstitial edema. This is similar in appearance to yester day. Small pleural effusions are noted with associated atelectasis. No pneumothorax is seen. The skel etal structures are osteopenic. The bony thorax is grossly intact. IMPRESSION: 1. Cardiomegaly with evidence of congestive failure and interstitial edema. This is similar in appear ance to yesterday. 2. Small pleural effusions. Electronically signed by: Nelson Fairchild M.D. 10/15/2018 10:15 AM
[2018-10-15] MEDS ORDERED: DEXTROSE 5% 100 ML BAG IV ONE (10:36)
[2018-10-15] MEDS ORDERED: AMIODARONE HCL INJ 50 MG/ML 3 ML VIAL IV ONE (10:36)
--- NOTE | 2018-10-15 11:55 | Critical Care Progress Note ---
Date of Service October 15, 2018 Assessment & Plan (1) V-tach: Impression: 1. Sustained, symptomatic V. tach with a rate of 160, responded to cardioversion. 2. ST elevation [place], anterior wall, status post 2 LUCIANO to LAD. 3. Ischemic cardiomyopathy, with poor ejection fraction. 4. History of asthma. 5. Type 2 diabetes. 6. Active smoker. 7. Pulmonary edema secondary to ischemic cardiomyopathy. Plan: 1. Add additional dose of Lasix 40 mg IV today and likely she will need a daily afterward. 2. Continue with amiodarone and on IV form, unless stated otherwise by cardiology. 3. Appreciate Dr. Hinojosa and Dr. Cash input, patient will be transferred to telemetry floor. 4. BiPAP as needed. 5. Continue with oxygen. 6. The patient continued to have nausea, related to her recent event, improving. Medication related as well including amiodarone. 7. Oral intake once appropriate. Diabetic and AHA diet. 8. Change bronchodilators to Xopenex. 9. DVT prophylaxis. 10. Compazine for nausea. 11. Discussed with the staff on rounds. Critical care time spent with the patient was 45 minutes. Will follow as needed. Subjective No events overnight, the patient did not have any episodes of sustained V. tach, she remains on amiodarone drip, doing well from cardiac standpoint. No respiratory issues as well, minimal nausea that has been persistent. Tolerating taking oral intake. Review of Systems Review of Systems: Apart from the above, review of system was unremarkable. Including 10 systems. Physical Exam Physical Exam: Vital signs are stable, S1-S2 regular rate and rhythm, lungs are distant breath sounds, abdomen is soft and benign, no rebound, bowel sounds are positive, trace edema in the periphery, she is not clammy in the periphery, good capillary filling. Neurologically she is intact. She is in good mood. Results & Data Vital Signs (Past 12 Hours) Vital Signs Temp Pulse Pulse Pulse Resp BP BP 10/15/18 11:24 66 66 16 10/15/18 11:11 36.6 C 59 L 20 115/75 10/15/18 09:30 65 21 10/15/18 09:20 63 20 114/79 10/15/18 09:00 69 14 10/15/18 08:30 63 19 10/15/18 08:04 63 18 10/15/18 08:00 67 17 114/79 10/15/18 07:30 68 17 10/15/18 07:01 65 20 135/79 10/15/18 07:00 64 18 10/15/18 06:45 63 19 10/15/18 05:00 60 22 141/77 H 10/15/18 04:00 69 17 127/81 10/15/18 03:00 59 L 17 132/74 10/15/18 02:01 65 20 134/82 10/15/18 02:00 59 L 19 10/15/18 01:01 58 L 20 122/74 10/15/18 01:00 36.8 C 58 L 16 10/15/18 00:00 62 19 128/74 Pulse Ox 10/15/18 11:24 96 10/15/18 11:11 95 10/15/18 09:30 95 10/15/18 09:20 94 10/15/18 09:00 10/15/18 08:30 93 10/15/18 08:04 95 10/15/18 08:00 99 10/15/18 07:30 97 10/15/18 07:01 93 10/15/18 07:00 94 10/15/18 06:45 93 10/15/18 05:00 94 10/15/18 04:00 96 10/15/18 03:00 97 10/15/18 02:01 96 10/15/18 02:00 97 10/15/18 01:01 97 10/15/18 01:00 97 10/15/18 00:00 96 Laboratory Results Labs were reviewed, borderline potassium which has been replaced, magnesium as well. Rest of her laboratory are acceptable. Troponin is trending down. Diagnostic Findings Chest x-ray with pulmonary vascular congestion, cardiomegaly, consistent with CHF. PG Care Time/CCT Critical Care Time: Yes Total Critical Care Time: 35
--- NOTE | 2018-10-15 13:05 | Hospitalist Progress Note ---
Date of Service October 15, 2018 Assessment & Plan (1) V-tach: 10/15/2018 Remained in sinus rhythm after cardioversion Further episode of ventricular arrhythmia/V. tach Remains asymptomatic Was on IV amiodarone drip Patient input from cardiology Patient is transition to p.o. amiodarone Will be scheduled for AICD placement on Wednesday Stable to be transferred to PCU today 10/14/2018 Developed sustained V. tach in PCU leading to hemodynamic instability not responding to IV amiodarone required ICU transfer followed by DC cardioversion Severe ischemic cardiomyopathy with Severely reduced ejection fraction, Appreciate input from cardiology and snowboard designer Patient will be continued with amiodarone, plan to transition to oral after loading dose Monitor electrolytes very closely, keep potassium above 4, magnesium level of 2 Patient will need AICD prior to discharge possibly early next week/ EP cardiology updated (2) Acute systolic (congestive) heart failure: Denies of any orthopnea, no shortness of above volume status appears to be stable Patient input from cardiology and snowboard designer 10/14/2018 worsening of pulmonary congestion noted in Cxray after sustained Vtach this morning ordered for 20 mg Iv Lasix after D/w Buckle Strap Drum Operator and Cardiology admitted with non-ST elevated VT with late presentation, underlying severe ischemic cardiomyopathy with worsening of SOB /Orthopena/lower extremity swelling CXR on admission interval development of congestive failure/fluid overload with small bilateral pleural effusions CTA chest showed congestive heart failure with findings of bilateral pleural effusions. No evidence of PE pt got low dose IV Lasix ( 20 mg ) intermittently as BP remains borderline low appreciate input from Cardiology ECHO:EF 25-30%, Grade 3 diastolic dysfunction Cardiac cath shows severe coronary artery disease S/P LUCIANO stent in LAD (3) Elevated troponin: NSTEMI S/P Cardiac Cath: Successful PCI of mid LAD with single drug-eluting stent. ECHO: Extensive septal, apical infarct thinning and akinesis and aneurysmal expansion of the septum and apex. Inferior wall is severely hypokinetic to akinetic. EF 25 to 30%. Diastolic dysfunction, grade 3. Continue aspirin, metoprolol, statin cont on Brilinta Appreciate Cardiology Input Appreciate improved, lisinopril and isosorbide resumed End of troponin after persistent ventricular tachycardia status post DC car dioversion LOW MAGNESIUM Replaced with both oral and IV supplement And ventricular tachyarrhythmia potassium should be more than 5 to (4) CAD (coronary artery disease): H/O CAD with chronic occlusion of RCA noted in past cardiac cath repeat Cath shows severe CAD in LAD distribution s/p LUCIANO stent in LAD pt will cont with Brillinta severe cardiomyopathy with reduced EF 25-30% noted post NSTEMI scheduled for AICD on Wednesday (5) Diabetes type 2, uncontrolled: Non compliant with insulin/and oral med Has not been taking her diabetes med for over 1 week Hb A1c 12 pharmacy consulted for glycemic management cont insulin SSI, basal [place] nursing educator consulted (6) Tobacco abuse: Counseling on smoking cessation (7) Asthma: Has not been taking her inhaler Dulera/singular/Ventolin no wheeze or cough continue PRN inhaler (8) Anxiety: Continue Celexa 20mg daily On Ativan 0.5 mg prn BID (9) HTN (hypertension): Blood pressure remains stable Resumed Imdur and lisinopril Lopressor with holding parameters DVT Px: SCD and teds Code Status Full CODE DISPOSITION ; expected to be discharged home when medically stable Subjective Remains in rate controlled sinus rhythm, no evidence of ventricular tachycardia overnight Patient feels fine, no complaint of shortness of breath, no chest heaviness, no dizzy spell Appetite and energy improved Physical Exam Constitutional: WD/WN, vitals as above no acute distress Eyes: + anicteric sclerae ENMT: external ear and nose normal, oropharynx normal Neck: trachea midline, no thyromegaly Respiratory: no respiratory distress and no cough Auscultation: + diminished lung sounds and + wheezes; no crackles Cardiovascular: Extremities: + edema Gastrointestinal (Abdomen): normal bowel sounds, soft, nontender, no hepatosplenomegaly Musculoskeletal: no cyanosis or clubbing, extremities motor strength 5/5 Skin: no rashes, warm and dry Neurologic: PERRL, EOMI, accommodation nl, no face palsy, no dysarthria Psychiatric: A+Ox3, euthymic affect Results & Data Vital Signs (Past 12 Hours) Vital Signs Temp Pulse Pulse Pulse Resp BP BP 10/15/18 11:24 66 66 16 10/15/18 11:11 36.6 C 59 L 20 115/75 10/15/18 09:30 65 21 10/15/18 09:20 63 20 114/79 10/15/18 09:00 69 14 10/15/18 08:30 63 19 06/29/19 08:04 63 18 10/15/18 08:00 67 17 114/79 10/15/18 07:30 68 17 10/15/18 07:01 65 20 135/79 10/15/18 07:00 64 18 10/15/18 06:45 63 19 10/15/18 05:00 60 22 141/77 H 10/15/18 04:00 69 17 127/81 10/15/18 03:00 59 L 17 132/74 10/15/18 02:01 65 20 134/82 10/15/18 02:00 59 L 19 Pulse Ox 10/15/18 11:24 96 10/15/18 11:11 95 10/15/18 09:30 95 10/15/18 09:20 94 10/15/18 09:00 10/15/18 08:30 93 10/15/18 08:04 95 10/15/18 08:00 99 10/15/18 07:30 97 10/15/18 07:01 93 10/15/18 07:00 94 10/15/18 06:45 93 10/15/18 05:00 94 10/15/18 04:00 96 10/15/18 03:00 97 10/15/18 02:01 96 10/15/18 02:00 97 (1) CAD (coronary artery disease) Associated angina: with stable angina Coronary Disease-Associated Artery /Lesion type: [place] artery [place] vs. transplanted heart: [place] heart Qualified Code(s): I25.118 - Atherosclerotic heart disease of [place] coronary artery with other forms of angina pectoris (2) Diabetes type 2, uncontrolled Glycemic state: with hyperglycemia Qualified Code(s): E11.65 - Type 2 diabetes mellitus with hyperglycemia (3) Asthma Asthma complication type: unspecified Asthma persistence: unspecified Asthma severity: unspecified severity Qualified Code(s): J45.909 - Unspecified asthma, uncomplicated
--- NOTE | 2018-10-15 13:50 | Cardiology Progress Note ---
Date of Service October 15, 2018 Assessment & Plan (1) V-tach: s/p cardioversion and amio bolus and load without recurrence Given now ventricular arrhythmia requiring cardioversion to expedite management and plan on pacer defibrillator prior to discharge EKG post cardioversion demonstrated septal Q waves and ST doming consistent with evolving infarct/aneurysm amio changed to po this AM Continue low-dose Toprol Cautious diuresis lisinopril also resumed (2) Acute systolic (congestive) heart failure: Secondary to ischemic cardiomyopathy. Patient underwent diagnostic cardiac catheterization with severe multivessel disease discern, chronic right coronary occlusion high-grade LAD at first/second diagonal Patient underwent coronary intervention, left anterior descending and angioplasty the diagonal Left ventricular end-diastolic pressure elevated as expected given severe LV dysfunction continue evidence based medical therapy will change metoprolol to succinate in AM (3) Ischemic cardiomyopathy: As above (4) History of coronary artery stent placement: (5) Diabetes type 2, uncontrolled: Subjective Pt seen and examined, oob in chair, states that she feels well. A little weak today but otherwise, denies cp, sob, palpitations, lightheadedness or dizziness. tele reviewed: sinus rhythm without arrhythmia or significant ecotpy. Review of Systems Review of Systems: All systems reviewed & are unremarkable except as noted in HPI & below Physical Exam Physical Exam: General: Awake, alert and oriented x 3. No acute distress. HEENT: Normocephalic, atraumatic. Pupils equal, round and reactive to light and accommodation. Extraocular muscles are intact. Anicteric sclera. Moist mucous membranes. Neck: No JVD. No bruit. Cardiovascular: Regular. Positive S-4. Normal S-1 and S-2. No S-3. No murmurs or rubs. Pulmonary: Clear to auscultation B/L. No rales, rhonchi or wheezing Abdomen: Bowel sounds x 4, soft. No rebound, guarding or tenderness. No organomegaly. Extremities: No clubbing, cyanosis or edema. +2 pedal pulses bilaterally. Skin: Warm and dry. Results & Data Vital Signs (Past 12 Hours) Vital Signs Temp Pulse Pulse Pulse Resp BP BP 10/15/18 11:24 66 66 16 10/15/18 11:11 36.6 C 59 L 20 115/75 10/15/18 09:30 65 21 10/15/18 09:20 63 20 114/79 10/15/18 09:00 69 14 10/15/18 08:30 63 19 10/15/18 08:04 63 18 10/15/18 08:00 67 17 114/79 10/15/18 07:30 68 17 10/15/18 07:01 65 20 135/79 10/15/18 07:00 64 18 10/15/18 06:45 63 19 10/15/18 05:00 60 22 141/77 H 10/15/18 04:00 69 17 127/81 10/15/18 03:00 59 L 17 132/74 10/15/18 02:01 65 20 134/82 10/15/18 02:00 59 L 19 Pulse Ox 10/15/18 11:24 96 10/15/18 11:11 95 10/15/18 09:30 95 10/15/18 09:20 94 10/15/18 09:00 10/15/18 08:30 93 10/15/18 08:04 95 10/15/18 08:00 99 10/15/18 07:30 97 10/15/18 07:01 93 10/15/18 07:00 94 10/15/18 06:45 93 10/15/18 05:00 94 10/15/18 04:00 96 10/15/18 03:00 97 10/15/18 02:01 96 10/15/18 02:00 97 (1) Diabetes type 2, uncontrolled Glycemic state: with hyperglycemia Qualified Code(s): E11.65 - Type 2 diabetes mellitus with hyperglycemia
[2018-10-15] MEDS: AMIODARONE 200 MG TAB PO SCH ×2 (15:01→20:43)
[2018-10-15] MEDS: LORazepam 0.5 MG TAB PO PRN (21:15)
[2018-10-16] MEDS: HEPARIN SOD 5,000 UNIT/0.5 ML VIAL SQ SCH ×3 (05:55→20:22)
[2018-10-16] MEDS: INSULIN ASPART 100 UNITS/ML 3 ML PEN SC SCH ×4 (08:52→20:21)
[2018-10-16] MEDS: ASPIRIN 81 MG ECTAB PO SCH (08:55)
[2018-10-16] MEDS: FENOFIBRATE NANOCRYSTALLIZED 48 MG TABLET PO SCH (08:55)
[2018-10-16] MEDS: ISOSORBIDE MONO EXTENDED REL 60 MG TABCR PO SCH (08:56)
[2018-10-16] MEDS: AMIODARONE 200 MG TAB PO SCH ×3 (08:56→20:25)
[2018-10-16] MEDS: ATORVASTATIN 40 MG TAB PO SCH (08:56)
[2018-10-16] MEDS: LISINOPRIL 2.5 MG TAB PO SCH (08:57)
[2018-10-16] MEDS: METOPROLOL SUCC 25MG EXT REL TAB PO SCH (08:57)
[2018-10-16] MEDS: INSULIN GLARGINE SOLOSTAR 100 UNITS/ML 3 ML PEN SC SCH (09:20)
[2018-10-16] MEDS: TICAGRELOR 90 MG TAB PO SCH ×2 (09:26→20:31)
--- NOTE | 2018-10-16 10:30 | Pharmacy Report ---
Pharmacy Glycemic Short Note 2 - Date of Service October 16, 2018 - Glycemic Short BSG Results (Last 24 hours): 10/15/18 10/15/18 10/15/18 11:21 11:22 14:35 POC Glucose 328 H* 300 H 186 H 10/15/18 10/15/18 10/15/18 15:56 20:20 20:41 POC Glucose 123 H 108 H 102 H 10/16/18 08:49 POC Glucose 254 H OUTPATIENT ANTIDIABETIC REGIMEN: * Jardiance 25 QD * Lantus 45 BID * Metformin 1G QD * Novolog 14 units qam ASSESSMENT: 10/16 * BSGs improved significantly after elevated BSG at lunch yesterday * Patient remains off the amiodarone drip and no additional stressors have been added * Fasting BSG of 254 mg/dL is not accurate. I confirmed with the nurse that this was taken after patient ate. * Correctional insulin was made tighter while patient on amio drip and with higher BSGs. Will loosen this now that these factors have been removed. 10/15 * Patient was transferred to the ICU last evening for sustained V tach that responded to cardioversion * She was initiated on an amiodarone drip (mixed in dextrose) and was just transitioned to po earlier today * BSGs have increased and are slightly above goal for ICU patient (ranging from 168-206 mg/dL since transfer to the ICU) * I am hesitant to increase the Lantus since the increase in BSGs is most likely from additional dextrose in the amiodarone drip. Will instead tighten CF and continue with lower goal range to provide additional correctional insulin. * Prior to lunch, patient transferred out of the ICU. Her lunch BSG was significantly elevated at 328 mg/dL. I spoke with the ICU nurse - patient had apple juice x 2 that was used to mixed her KCl powder in and this was not covered with insulin. RN on 2S was instructed to give Novolog as ordered. Recheck at 1430 is down to 186 mg/dL. 10/14 * 53yo T2DM female with poor outpatient control secondary to non-compliance. A1c = 12.5% on 10/13/18 * Pt has been receiving SQ basal bolus insulin regiment with Lantus + NovoLog with near-adequate control * Pt currently receiving ~ 50 units of insulin per day * BSGs rnging 136-229mg/dl * AM fasting BSG is in goal range at 135 mg/dl this morning with 30 units of basal insulin. Currently ordered as 20 units in AM + 10 units in PM. Will simplify regimen and change to Lantus 30 units SQ 24hrs given in AM * Post-prandial BSGs are elevated at 205, 229 mg/dl. Will tighten CR. * NovoLog dose tend to catch up throughout the day as HS BSG is in goal range. Will loosen CF to prevent low when aggressive CR given + CF insulin. Pt needs aggressive CHO coverage but may be too much when combined with CF at elevated BSGs PLAN FOR INPATIENT GLYCEMIC CONTROL: * Continue to hold outpatient oral diabetes medications * Basal insulin - no change * Lantus 30 units SQ daily in AM * Bolus insulin - loosen CF * NovoLog per scale ACHS or Q6hrs while NPO * Goal Range: Low 110 mg/dL - High 140 mg/dL * Correction Factor: 20 mg/dL/unit * Nutritional / Prandial insulin per carb ratio of 1 unit per 5 grams CHO consumed Discharge Recs: (from 10/14 note) * A1c = 12.5 % on 10/13/18 * Pt specific goal A1c is ~ 7% * A1c goal should be individualized based on risk of hypo/drug AE, disease duration, life expectancy, relevant co-morbidities, established vascular complication, patient attitude and expected treatment efforts, resources and support system. * A reasonable A1C goal for many non adults is <7% * A1c is greater than or equal to 10% consider metformin + combination injectable therapy (basal insulin + rapid acting insulin OR GLP1-RA) * Metformin, if not contraindicated and if tolerated, is the preferred initial pharmacological agent for type 2 diabetes. Metformin has a long- standing evidence base for efficacy and safety, is inexpensive, and may reduce risk of cardiovascular events. * B12 supplementation may be necessary with meterman metformin use * Recommend Metformin + Lantus + NovoLog fixed dosing vs carb counting if patient is willing. * Metformin XR 500mg PO daily with evening meal. Continue to titrate metformin dosing upwards as recommended. Dosage increases should be made in increments of 500 mg weekly, up to 2,000 mg/day PO, given in divided doses. Doses above 2000 mg/day may be better tolerated if divided and given 3 times per day with meals. Max: 2,550 mg/day PO, in divided doses * Lantus 30 units SQ daily in AM + NovoLog 10 units SQ TIDM {could consider a GLP-[address] NovoLog if cost is not an issue} * If Lantus + Log is too cumbersome, may consider premixed insulin with Novolin 70/30 insulin 40 units SQ in AM with breakfast + 20 units SQ in PM with dinner. Additional lifestyle modifications * Support Patient Self-Management * Healthy Lifestyle (diet, exercise, and smoking cessation) * Disease self-management (SMBG) * Prevention of complications (BP, Lipid goals, Immunizations) * Consider outpatient Diabetes Self-Management Education & Support
--- NOTE | 2018-10-16 14:05 | Hospitalist Progress Note ---
Date of Service October 16, 2018 Assessment & Plan (1) V-tach: Remained in sinus rhythm after cardioversion no Further episode of ventricular arrhythmia/V. tach Remains asymptomatic Was on IV amiodarone drip Patient input from cardiology Patient is transition to p.o. amiodarone scheduled for AICD placement on Wednesday10/14/2018 Developed sustained V. tach in PCU leading to hemodynamic instability not responding to IV amiodarone required ICU transfer followed by DC cardioversion Severe ischemic cardiomyopathy with Severely reduced ejection fraction, Appreciate input from cardiology and transportation sales consultant Patient will be continued with amiodarone, plan to transition to oral after loading dose Monitor electrolytes very closely, keep potassium above 4, magnesium level of 2 Patient will need AICD prior to discharge possibly early next week/ EP cardiology updated (2) Acute systolic (congestive) heart failure: Denies of any orthopnea, no shortness of above volume status appears to be stable Patient input from cardiology and transportation sales consultant 10/14/2018 worsening of pulmonary congestion noted in Cxray after sustained Vtach this morning ordered for 20 mg Iv Lasix after D/w Mechanical Systems Engineer and Cardiology admitted with non-ST elevated CO with late presentation, underlying severe ischemic cardiomyopathy with worsening of SOB /Orthopena/lower extremity swelling CXR on admission interval development of congestive failure/fluid overload with small bilateral pleural effusions CTA chest showed congestive heart failure with findings of bilateral pleural effusions. No evidence of PE pt got low dose IV Lasix ( 20 mg ) intermittently as BP remains borderline low appreciate input from Cardiology ECHO:EF 25-30%, Grade 3 diastolic dysfunction Cardiac cath shows severe coronary artery disease S/P LUCIANO stent in LAD (3) Elevated troponin: NSTEMI S/P Cardiac Cath: Successful PCI of mid LAD with single drug-eluting stent. ECHO: Extensive septal, apical infarct thinning and akinesis and aneurysmal expansion of the septum and apex. Inferior wall is severely hypokinetic to akinetic. EF 25 to 30%. Diastolic dysfunction, grade 3. Continue aspirin, metoprolol, statin cont on Brilinta Appreciate Cardiology Input Appreciate improved, lisinopril and isosorbide resumed End of troponin after persistent ventricular tachycardia status post DC cardioversion LOW MAGNESIUM Replaced monitor daily labs Mg level should be kept ~2 to prevent ventricular arrythmia (4) CAD (coronary artery disease): H/O CAD with chronic occlusion of RCA noted in past cardiac cath repeat Cath shows severe CAD in LAD distribution s/p LUCIANO stent in LAD this admission pt will cont with Brillinta severe cardiomyopathy with reduced EF 25-30% noted post NSTEMI developed sustained vtach requiring DC cardioversion scheduled for AICD on Wednesday (5) Diabetes type 2, uncontrolled: Non compliant with insulin/and oral med Has not been taking her diabetes med for over 1 week Hb A1c 12 pharmacy consulted for glycemic management cont insulin SSI, basal [place] childbirth educator consulted (6) Tobacco abuse: Counseling on smoking cessation (7) Asthma: Has not been taking her inhaler Dulera/singular/Ventolin no wheeze or cough continue PRN inhaler (8) Anxiety: Continue Celexa 20mg daily On Ativan 0.5 mg prn BID (9) HTN (hypertension): Blood pressure remains stable Resumed Imdur and lisinopril Lopressor with holding parameters DVT Px: SCD and teds Code Status Full CODE DISPOSITION ; expected to be discharged home when medically stable Subjective pt reports of feeling fine denies cp, sob, palpitations, lightheadedness or dizziness. remains in sinus rhythm scheduled for AICD placement tomorrow Physical Exam Constitutional: WD/WN, vitals as above no acute distress Eyes: + anicteric sclerae ENMT: external ear and nose normal, oropharynx normal Neck: trachea midline, no thyromegaly Respiratory: no respiratory distress and no cough Auscultation: + diminished lung sounds and + wheezes; no crackles Cardiovascular: Extremities: + edema Gastrointestinal (Abdomen): normal bowel sounds, soft, nontender, no hepatosplenomegaly Musculoskeletal: no cyanosis or clubbing, extremities motor strength 5/5 Skin: no rashes, warm and dry Neurologic: PERRL, EOMI, accommodation nl, no face palsy, no dysarthria Psychiatric: A+Ox3, euthymic affect Results & Data Vital Signs (Past 12 Hours) Vital Signs Temp Pulse Pulse Pulse Resp BP BP 10/16/18 11:07 36.6 C 67 18 90/52 L 10/16/18 10:59 63 10/16/18 07:16 36.7 C 65 16 112/78 10/16/18 04:09 36.5 C 65 20 106/71 Pulse Ox 10/16/18 11:07 93 10/16/18 10:59 10/16/18 07:16 94 10/16/18 04:09 94 (1) CAD (coronary artery disease) Associated angina: with stable angina Coronary Disease-Associated Artery/Lesion type: [place] artery [place] vs. transplanted heart: [place] heart Qualified Code(s): I25.118 - Atherosclerotic heart disease of [place] coronary artery with other forms of angina pectoris (2) Diabetes type 2, uncontrolled Glycemic state: with hyperglycemia Qualified Code(s): E11.65 - Type 2 diabetes mellitus with hyperglycemia (3) Asthma Asthma complication type: unspecified Asthma persistence: unspecified Asthma severity: unspecified severity Qualified Code(s): J45.909 - Unspecified asthma, uncomplicated
[2018-10-16] MEDS: LORazepam 0.5 MG TAB PO PRN (20:34)
[2018-10-17] MEDS: HEPARIN SOD 5,000 UNIT/0.5 ML VIAL SQ SCH ×3 (05:14→20:47)
[2018-10-17 06:37] LABS: Hemoglobin 13.9 g/dL (12.0-16.0); Mean Corpuscular Hgb Conc 32.3 g/dL (32-36); Mean Corpuscular Volume 88.8 fL (80-100); Mean Platelet Volume 9.6 fL (7.4-10.4); Platelet Count 315 K/uL (130-400); RDW Coefficient of Variation 14.6 % (11.5-14.5); RDW Standard Deviation 47.1 fL (36.4-46.3); Red Blood Count 4.84 M/uL (4.2-5.4); White Blood Count 9.43 K/uL (4.8-10.8)
[2018-10-17] MEDS: FENOFIBRATE NANOCRYSTALLIZED 48 MG TABLET PO SCH (08:08)
[2018-10-17] MEDS: INSULIN GLARGINE SOLOSTAR 100 UNITS/ML 3 ML PEN SC SCH (08:08)
[2018-10-17] MEDS: INSULIN ASPART 100 UNITS/ML 3 ML PEN SC SCH ×4 (08:08→20:46)
[2018-10-17] MEDS: ATORVASTATIN 40 MG TAB PO SCH (08:09)
[2018-10-17] MEDS: LISINOPRIL 2.5 MG TAB PO SCH (08:09)
[2018-10-17] MEDS: ASPIRIN 81 MG ECTAB PO SCH (08:10)
[2018-10-17] MEDS: METOPROLOL SUCC 25MG EXT REL TAB PO SCH (08:10)
[2018-10-17] MEDS: ISOSORBIDE MONO EXTENDED REL 60 MG TABCR PO SCH (08:10)
[2018-10-17] MEDS: AMIODARONE 200 MG TAB PO SCH ×2 (08:10→20:45)
--- NOTE | 2018-10-17 08:53 | Pharmacy Report ---
Pharmacy Glycemic Short Note 2 - Date of Service October 17, 2018 - Glycemic Short BSG Results (Last 24 hours): 10/16/18 10/16/18 10/16/18 08:49 11:37 16:21 POC Glucose 254 H 157 H 78 10/16/18 10/17/18 10/17/18 20:21 00:03 05:54 POC Glucose 112 H 130 H 152 H OUTPATIENT ANTIDIABETIC REGIMEN: * Jardiance 25 QD * Lantus 45 units BID * Metformin 1G QD * Novolog 14 units qam ASSESSMENT: 10/17 * Patient rec'd 65 units of insulin yesterday (30 of this was basal) * Patient currently NPO for AICD placement this AM. Okay with receiving full dose of basal since this has been less than 50% of TDD. * Fasting BSG = 152 mg/dL; continue basal dose * Postprandial BSGs 78 - 157 mg/dL yesterday; lower BSG most likely d/t stacking of earlier doses from late BSG in AM, no changes needed 10/16 * BSGs improved significantly after elevated BSG at lunch yesterday * Patient remains off the amiodarone drip and no additional stressors have been added * Fasting BSG of 254 mg/dL is not accurate. I confirmed with the nurse that this was taken after patient ate. * Correctional insulin was made tighter while patient on amio drip and with higher BSGs. Will loosen this now that these factors have been removed. 10/15 * Patient was transferred to the ICU last evening for sustained V tach that responded to cardioversion * She was initiated on an amiodarone drip (mixed in dextrose) and was just transitioned to po earlier today * BSGs have increased and are slightly above goal for ICU patient (ranging from 168-206 mg/dL since transfer to the ICU) * I am hesitant to increase the Lantus since the increase in BSGs is most likely from additional dextrose in the amiodarone drip. Will instead tighten CF and continue with lower goal range to provide additional correctional insulin. * Prior to lunch, patient transferred out of the ICU. Her lunch BSG was significantly elevated at 328 mg/dL. I spoke with the ICU nurse - patient had apple juice x 2 that was used to mixed her KCl powder in and this was not covered with insulin. RN on 2S was instructed to give Novolog as ordered. Recheck at 1430 is down to 186 mg/dL. 10/14 * 53yo T2DM female with poor outpatient control secondary to non-compliance. A1c = 12.5% on 10/13/18 * Pt has been receiving SQ basal bolus insulin regiment with Lantus + NovoLog with near-adequate control * Pt currently receiving ~ 50 units of insulin per day * BSGs rnging 136-229mg/dl * AM fasting BSG is in goal range at 135 mg/dl this morning with 30 units of basal insulin. Currently ordered as 20 units in AM + 10 units in PM. Will simplify regimen and change to Lantus 30 units SQ 24hrs given in AM * Post-prandial BSGs are elevated at 205, 229 mg/dl. Will tighten CR. * NovoLog dose tend to catch up throughout the day as HS BSG is in goal range. Will loosen CF to prevent low when aggressive CR given + CF insulin. Pt needs aggressive CHO coverage but may be too much when combined with CF at elevated BSGs PLAN FOR INPATIENT GLYCEMIC CONTROL: * Continue to hold outpatient oral diabetes medications * Basal insulin - no change * Lantus 30 units SQ daily in AM * Bolus insulin - no change * NovoLog per scale ACHS or Q6hrs while NPO * Goal Range: Low 110 mg/dL - High 140 mg/dL * Correction Factor: 20 mg/dL/unit * Nutritional / Prandial insulin per carb ratio of 1 unit per 5 grams CHO consumed Discharge Recs: (from 10/14 note) * A1c = 12.5 % on 10/13/18 * Pt specific goal A1c is ~ 7% * A1c goal should be individualized based on risk of hypo/drug AE, disease duration, life expectancy, relevant co-morbidities, established vascular complication, patient attitude and expected treatment efforts, resources and support system. * A reasonable A1C goal for many non adults is <7% * A1c is greater than or equal to 10% consider metformin + combination injectable therapy (basal insulin + rapid acting insulin OR GLP1-RA) * Metformin, if not contraindicated and if tolerated, is the preferred initial pharmacological agent for type 2 diabetes. Metformin has a long- standing evidence base for efficacy and safety, is inexpensive, and may reduce risk of cardiovascular events. * B12 supplementation may be necessary with mcfp metformin use * Recommend Metformin + Lantus + NovoLog fixed dosing vs carb counting if patient is willing. * Metformin XR 500mg PO daily with evening meal. Continue to titrate metformin dosing upwards as recommended. Dosage increases should be made in increments of 500 mg weekly, up to 2,000 mg/day PO, given in divided doses. Doses above 2000 mg/day may be better tolerated if divided and given 3 times per day with meals. Max: 2,550 mg/day PO, in divided doses * Lantus 30 units SQ daily in AM + NovoLog 10 units SQ TIDM {could consider a GLP-[address] NovoLog if cost is not an issue} * If Lantus + Log is too cumbersome, may consider premixed insulin with Novolin 70/30 insulin 40 units SQ in AM with breakfast + 20 units SQ in PM with dinner. Additional lifestyle modifications * Support Patient Self-Management * Healthy Lifestyle (diet, exercise, and smoking cessation) * Disease self-management (SMBG) * Prevention of complications (BP, Lipid goals, Immunizations) * Consider outpatient Diabetes Self-Management Education & Support
[2018-10-17] MEDS: TICAGRELOR 90 MG TAB PO SCH ×2 (09:11→20:45)
--- NOTE | 2018-10-17 11:08 | Cardiology Progress Note ---
Date of Service October 17, 2018 Assessment & Plan (1) V-tach: s/p cardioversion and amio bolus and load without recurrence Given now ventricular arrhythmia requiring cardioversion to expedite management and plan on pacer defibrillator prior to discharge For ICD placement today has been NPO (2) Acute systolic (congestive) heart failure: Secondary to ischemic cardiomyopathy. Patient underwent diagnostic cardiac catheterization with severe multivessel disease discern, chronic right coronary occlusion high-grade LAD at first/second diagonal Patient underwent coronary intervention, left anterior descending and angioplasty the diagonal Left ventricular end-diastolic pressure elevated as expected given severe LV dysfunction continue evidence based medical therapy will change metoprolol to succinate in AM (3) Ischemic cardiomyopathy: As above (4) History of coronary artery stent placement: (5) Diabetes type 2, uncontrolled: Subjective Pt seen and examined, states that she feels well. No complaints. Denies cp, sob, palpitations, lightheadedness or dizziness. tele reviewed: sinus rhythm without arrhythmia. Review of Systems Review of Systems: All systems reviewed & are unremarkable except as noted in HPI & below Physical Exam Physical Exam: General: Awake, alert and oriented x 3. No acute distress. HEENT: Normocephalic, atraumatic. Pupils equal, round and reactive to light and accommodation. Extraocular muscles are intact. Anicteric sclera. Moist mucous membranes. Neck: No JVD. No bruit. Cardiovascular: Regular. Positive S-4. Normal S-1 and S-2. No S-3. No mur murs or rubs. Pulmonary: Clear to auscultation B/L. No rales, rhonchi or wheezing Abdomen: Bowel sounds x 4, soft. No rebound, guarding or tenderness. No organomegaly. Extremities: No clubbing, cyanosis or edema. +2 pedal pulses bilaterally. Skin: Warm and dry. Results & Data Vital Signs (Past 12 Hours) Vital Signs Temp Pulse Pulse Resp BP BP Pulse Ox 10/17/18 07:38 36.5 C 63 16 105/67 95 10/17/18 02:49 36.5 C 72 16 102/67 97 10/17/18 00:01 36.5 C 63 16 99/66 L 94 (1) Diabetes type 2, uncontrolled Glycemic state: with hyperglycemia Qualified Code(s): E11.65 - Type 2 diabetes mellitus with hyperglycemia
[2018-10-17] MEDS ORDERED: LIDOCAINE HCL 1% 20 ML VIAL ONE (13:19)
[2018-10-17] MEDS ORDERED: BACITRACIN INJ 50,000 UNIT VIAL ONE (13:19)
[2018-10-17] MEDS ORDERED: BUPIVACAINE 0.25% 30 ML VIAL ONE (13:19)
[2018-10-17] MEDS ORDERED: MIDAZOLAM HCL 5 MG/ML 1 ML VIAL ONE ×2 (14:31→15:40)
[2018-10-17] MEDS ORDERED: fentaNYL citrate 100 MCG/2 ML VIAL ONE ×2 (14:31→15:39)
[2018-10-17] MEDS ORDERED: CEFAZOLIN 250 MG/ML 1 GM VIAL ONE (14:31)
--- NOTE | 2018-10-17 15:19 | History & Physical Bridge Note ---
Date of Service October 17, 2018 History & Physical Bridge Note I have examined the patient, reviewed the History & Physical and in the interval since the performance of the History & Physical I have noted the following changes of clinical significance: pt with sustained VT and ICM and SB for a dual chamber ICD
[2018-10-17] MEDS ORDERED: Nursing to Pharmacy Communication ONE (15:20)
--- NOTE | 2018-10-17 15:20 | Pre Anesthesia Assessment ---
Date of Service October 17, 2018 Pre Sedation Assessment Vital Signs Temp Pulse Pulse Pulse Resp BP BP 10/17/18 15:14 65 10/17/18 12:02 36.3 C L 59 L 16 103/65 10/17/18 07:38 36.5 C 63 16 105/67 10/17/18 02:49 36.5 C 72 16 102/67 10/17/18 00:01 36.5 C 63 16 99/66 L 10/16/18 22:57 62 10/16/18 19:37 36.7 C 65 18 99/61 L 10/16/18 16:00 36.6 C 65 18 99/61 L Pulse Ox 10/17/18 15:14 10/17/18 12:02 91 10/17/18 07:38 95 10/17/18 02:49 97 10/17/18 00:01 94 10/16/18 22:57 10/16/18 19:37 94 10/16/18 16:00 93 Cardiovascular + bradycardic Respiratory normal respiratory effort, lungs clear to auscultation Pre-Sedation Airway Assessment Smoking Status: Current every day smoker Hx Sleep Apnea: No Hx Difficult Intubation: No Short, Thick Neck: No Thyromental Distance: > or= 3.5 Finger Breadths Oral Cavity: + WNL Mallampati Class: III ASA: ASA3 NPO Status Date of Last Intake of Fluids: 10/16/18 Last Oral Intake of Fluids Comment: sip with meds Date of Last Intake of Solid Food: 10/16/18 Procedure Planning Contraindications for Sedation: none Current Medications Reviewed: Yes Notes The planned sedation has been discussed with the patient. Informed Consent was obtained. I have identified the patient, determined the appropriateness of sedation and have assessed the patient immediately prior to the procedure. All medicine(s) and interventions are by my order.
[2018-10-17] MEDS ORDERED: VANCOMYCIN HCL IV STA (15:28)
--- NOTE | 2018-10-17 16:24 | Operative Report ---
Post Operative Report Pre & Post Diagnosis Operation Date: 10/13/18 09:00 <No data on this case meets the specified criteria> Operation Date: 10/17/18 14:00 ICM, SB, VT Pre and post Procedure Operation Date: 10/13/18 09:00 Actual Procedures p Cath, Left with Cors and Vent - Marco Hinojosa MD s Cineradiography w/Routine Exam - Marco Hinojosa MD p Drug Eluting Stent SGl Vessel - Mayo Kaur MD s POBA SGL Vessel - Mayo Kaur MD s IVUS Coronary Single Vessel - Mayo Kaur MD Operation Date: 10/17/18 14:00 Actual Procedures p ICD Insertion Single or Dual - Elvia Dalal DO Surgeon Elvia Dalal, Supervisor Baking none Estimated Blood Loss 20 Findings Consistent with Post-Op Diagnosis Specimens none Description of Procedure see official report I attest to the content of the Intraoperative Record and any orders documented therein. Any exceptions are noted below.
--- NOTE | 2018-10-17 16:25 | Post Anesthesia Assessment ---
Date of Service October 17, 2018 Post Sedation Assessment Vital Signs Temp Pulse Pulse Pulse Resp BP BP 10/17/18 15:14 65 10/17/18 12:02 36.3 C L 59 L 16 103/65 10/17/18 07:38 36.5 C 63 16 105/67 10/17/18 02:49 36.5 C 72 16 102/67 10/17/18 00:01 36.5 C 63 16 99/66 L 10/16/18 22:57 62 10/16/18 19:37 36.7 C 65 18 99/61 L Pulse Ox 10/17/18 15:14 10/17/18 12:02 91 10/17/18 07:38 95 10/17/18 02:49 97 10/17/18 00:01 94 10/16/18 22:57 10/16/18 19:37 94 Recovery Score Activity: Moves 4 extremities Respiration: Deep Breath/Cough Circulation: +/-20% PreAnes Value Consciousness: Fully Awake Oxygen Saturation: O2 needed for >90% Post Sedation Plan On clinical assessment, the patient appears to have tolerated the sedation without complications. Patient is recovering as anticipated. Patient will continue to be monitored by nursing and may be discharged when sedation discharge criteria are met per below protocol. Upon Completions of procedure and additional 15 minutes continue every 5 minute vital signs and the P.A.R. score; then discharge to a Phase I or Fast Track to Phase II per the following guidelines: * Discharge Patient to appropriate Phase II area if PAR is 8 or greater or return to pre- procedure baseline. The post - procedure orders will be as directed. * If PAR score is less than 8 or not return to pre-procedure baseline then patient will follow Phase I monitoring till PAR is reached for Phase II. The Phase I may be done in procedure room or may call to secure a Phase I area. * If naloxone or flumazenil are used for reversal, hold in Phase I for continued monitoring from when last reversal dose was given for a minimum of 60 minutes or longer pending the nurse and/or physician discretion of patient condition before discharge to Phase II. Please call the Sedation Physician to re-evaluate and complete post-note for discharge to Phase II area. Do NOT discharge from procedure sedation or Phase 1 until post- sedation evaluation note is complete by procedure /sedation MD Sedation Discharge Instructions to be given to the patient at discharge to home.
[2018-10-17] MEDS: ACETAMINOPHEN 325 MG TAB PO PRN (20:44)
[2018-10-17] MEDS: LORazepam 0.5 MG TAB PO PRN (20:50)
--- NOTE | 2018-10-17 21:26 | Hospitalist Progress Note ---
Date of Service October 17, 2018 Assessment & Plan (1) Acute systolic (congestive) heart failure: Underlying ischemic cardiomyopathy with wall motion abnormalities and overall LVEF 25-30%. Improved with diuresis. Continue metoprolol succinate and lisinopril. (2) CAD (coronary artery disease): Cardiac catheterization performed on 10/13/2018 demonstrated severe coronary disease with chronic occlusion of RCA, 99% occlusion of LAD after first diagonal branch, mild disease of left circumflex. PCI of LAD stenosis with drug-eluting stent performed. Continue aspirin, ticagrelor, metoprolol, lisinopril, nitrates, statin. (3) V-tach: Developed sustained ventricular tachycardia on 10/14. Underlying ischemic cardiomyopathy. Cardioversion performed and patient placed on amiodarone. ICD placement today. (4) HTN (hypertension): Cardiovascular medications as noted above. (5) Asthma: Stable. (6) Diabetes type 2, uncontrolled: Fingerstick blood sugars as high as 417 day of admission. Hemoglobin A1c 12.5. Being followed by Diabetes Team and Pharmacy. Receiving Lantus/NovoLog per protocol. Fasting blood sugar today 152. (7) DVT prophylaxis: Receiving subcutaneous heparin. Ambulate. (8) Discharge planning issues: Anticipated discharge to home. Family Medicine follow-up with Dr. Foster. Subjective Recheck for multiple problems. Patient seen in their room around 10:20. Waiting for ICD placement later today. Feels well. No chest pain, shortness of breath. Telemetry data reviewed; no additional runs of VT. Review of Systems: Constitutional- no fever. Cardiac- as noted above. Pulmonary- no cough or SOB. GI- no nausea, vomiting, diarrhea, melena, hematochezia. - no urinary symptoms. Otherwise, as noted above. Physical Exam Constitutional: no acute distress Respiratory: no respiratory distress Auscultation: lungs clear to auscultation bilaterally Cardiovascular: Rate/Rhythm: regular rate and regular rhythm Heart Sounds: + murmur (II/ sys murmur at base); no gallop Vessels: no JVD Extremities: no calf tenderness and no edema Gastrointestinal (Abdomen): normal bowel sounds, soft, nontender, no hepatosplenomegaly Skin: no rashes, warm and dry Psychiatric: Orientation: alert and oriented x 3 Results & Data Vital Signs (Past 12 Hours) Vital Signs Temp Pulse Pulse Pulse Resp BP BP 07/01/19 18:59 36.5 C 60 18 93/60 L 10/17/18 18:30 60 16 92/63 L 10/17/18 18:00 60 16 90/60 L 10/17/18 17:30 60 18 100/67 10/17/18 17:00 60 14 98/62 L 10/17/18 16:55 60 14 94/62 L 10/17/18 16:40 36.3 C L 60 18 100/69 10/17/18 15:14 65 10/17/18 12:02 36.3 C L 59 L 16 103/65 Pulse Ox 10/17/18 18:59 96 10/17/18 18:30 97 10/17/18 18:00 96 10/17/18 17:30 93 10/17/18 17:00 93 10/17/18 16:55 93 10/17/18 16:40 89 L 10/17/18 15:14 10/17/18 12:02 91 Laboratory Results Laboratory Results - last 24 hr 10/17/18 10/17/18 10/17/18 00:03 05:54 06:21 WBC 9.43 RBC 4.84 Hgb 13.9 Hct 43.0 MCV 88.8 MCH 28.7 MCHC 32.3 RDW Std Deviation 47.1 H RDW Coeff of [place] 14.6 H Plt Count 315 MPV 9.6 POC Glucose 130 H 152 H Magnesium 10/17/18 10/17/18 10/17/18 06:21 11:47 16:40 WBC RBC Hgb Hct MCV MCH MCHC RDW Std Deviation RDW Coeff of [place] Plt Count MPV POC Glucose 135 H 92 Magnesium 1.9 10/17/18 20:16 WBC RBC Hgb Hct MCV MCH MCHC RDW Std Deviation RDW Coeff of [place] Plt Count MPV POC Glucose 148 H Magnesium (1) CAD (coronary artery disease) Coronary Disease-Associated Artery/Lesion type: [place] artery [place] vs. transplanted heart: [place] heart Associated angina: with stable angina Qualified Code(s): I25.118 - Atherosclerotic heart disease of [place] coronary artery with other forms of angina pectoris (2) Asthma Asthma severity: unspecified severity Asthma persistence: unspecified Asthma complication type: unspecified Qualified Code(s): J45.909 - Unspecified asthma, uncomplicated (3) Diabetes type 2, uncontrolled Glycemic state: with hyperglycemia Qualified Code(s): E11.65 - Type 2 diabetes mellitus with hyperglycemia
[2018-10-18] MEDS: ACETAMINOPHEN 325 MG TAB PO PRN ×2 (03:00→08:27)
[2018-10-18] MEDS: HEPARIN SOD 5,000 UNIT/0.5 ML VIAL SQ SCH (05:21)
[2018-10-18 07:50] LABS: BUN Creatinine Ratio 24.7 (10-20); Calcium 8.8 mg/dl (8.5-10.1); Creatinine Clr Calc Pharmacy 105.8 ml/min; Est GFR (African American) 121.1; Est GFR (Non-African American) 104.5; Magnesium 2.1 mg/dl (1.8-2.4); Potassium 3.8 mmol/L (3.5-5.1)
[2018-10-18] MEDS: METOPROLOL SUCC 25MG EXT REL TAB PO SCH (08:25)
[2018-10-18] MEDS: ATORVASTATIN 40 MG TAB PO SCH (08:25)
[2018-10-18] MEDS: TICAGRELOR 90 MG TAB PO SCH (08:25)
[2018-10-18] MEDS: ASPIRIN 81 MG ECTAB PO SCH (08:26)
[2018-10-18] MEDS: ISOSORBIDE MONO EXTENDED REL 60 MG TABCR PO SCH (08:26)
[2018-10-18] MEDS: AMIODARONE 200 MG TAB PO SCH (08:26)
[2018-10-18] MEDS: LISINOPRIL 2.5 MG TAB PO SCH (08:26)
[2018-10-18] MEDS: FENOFIBRATE NANOCRYSTALLIZED 48 MG TABLET PO SCH (08:27)
[2018-10-18] MEDS: INSULIN ASPART 100 UNITS/ML 3 ML PEN SC SCH ×2 (08:28→12:25)
[2018-10-18] MEDS: INSULIN GLARGINE SOLOSTAR 100 UNITS/ML 3 ML PEN SC SCH (08:28)
--- NOTE | 2018-10-18 11:23 | Pharmacy Report ---
Pharmacy Glycemic Short Note 2 - Date of Service October 18, 2018 - Glycemic Short BSG Results (Last 24 hours): 10/17/18 10/17/18 10/17/18 11:47 16:40 20:16 Glucose POC Glucose 135 H 92 148 H 10/18/18 10/18/18 06:59 07:07 Glucose 116 H POC Glucose 113 H OUTPATIENT ANTIDIABETIC REGIMEN: * Jardiance 25 QD * Lantus 45 units BID * Metformin 1G QD * Novolog 14 units qam ASSESSMENT: 10/18 * BSGs well controlled over last 24 hrs * Fasting BSG 113 this AM w/ 30 units of Lantus on board. This is also reflective of steady-state. No changes to be made today * Post-prandial BSGs well controlled with current Novolog orders however Carb intake unclear from documentation in medical record. Will continue the same for now. 10/17 * Patient rec'd 65 units of insulin yesterday (30 of this was basal) * Patient currently NPO for AICD placement this AM. Okay with receiving full dose of basal since this has been less than 50% of TDD. * Fasting BSG = 152 mg/dL; continue basal dose * Postprandial BSGs 78 - 157 mg/dL yesterday; lower BSG most likely d/t stacking of earlier doses from late BSG in AM, no changes needed 10/16 * BSGs improved significantly after elevated BSG at lunch yesterday * Patient remains off the amiodarone drip and no additional stressors have been added * Fasting BSG of 254 mg/dL is not accurate. I confirmed with the nurse that this was taken after patient ate. * Correctional insulin was made tighter while patient on amio drip and with higher BSGs. Will loosen this now that these factors have been removed. PLAN FOR INPATIENT GLYCEMIC CONTROL: * Continue to hold outpatient oral diabetes medications * Basal insulin - no change * Lantus 30 units SQ daily in AM * Bolus insulin - no change * NovoLog per scale ACHS or Q6hrs while NPO * Goal Range: Low 110 mg/dL - High 140 mg/dL * Correction Factor: 20 mg/dL/unit * Nutritional / Prandial insulin per carb ratio of 1 unit per 5 grams CHO consumed Discharge Recs: (from 10/14 note) * A1c = 12.5 % on 10/13/18 * Recommend Metformin + Lantus + NovoLog fixed dosing vs carb counting if patient is willing. * Metformin XR 500mg PO daily with evening meal. Continue to titrate metformin dosing upwards as recommended. Dosage increases should be made in increments of 500 mg weekly, up to 2,000 mg/day PO, given in divided doses. Doses above 2000 mg/day may be better tolerated if divided and given 3 times per day with meals. Max: 2,550 mg/day PO, in divided doses * Lantus 30 units SQ daily in AM + NovoLog 10 units SQ TIDM {could consider a GLP-[address] of NovoLog if cost is not an issue} * If Lantus + Log is too cumbersome, may consider premixed insulin with Novolin 70/30 insulin 40 units SQ in AM with breakfast + 20 units SQ in PM with dinner. Additional lifestyle modifications * Support Patient Self-Management * Healthy Lifestyle (diet, exercise, and smoking cessation) * Disease self-management (SMBG) * Prevention of complications (BP, Lipid goals, Immunizations) * Consider outpatient Diabetes Self-Management Education & Support
--- NOTE | 2018-10-18 12:42 | Cardiology Progress Note ---
Date of Service October 18, 2018 Assessment & Plan (1) V-tach: s/p cardioversion and amio bolus and load without recurrence Given now ventricular arrhythmia requiring cardioversion to expedite management and plan on pacer defibrillator prior to discharge ICD placed 10/18 position confirmed functioning appropriately my office to call to arrange f/u site check and follow up (2) Acute systolic (congestive) heart failure: Secondary to ischemic cardiomyopathy. Patient underwent diagnostic cardiac catheterization with severe multivessel disease discern, chronic right coronary occlusion high-grade LAD at first/second diagonal Patient underwent coronary intervention, left anterior descending and angioplasty the diagonal Left ventricular end-diastolic pressure elevated as expected given severe LV dysfunction continue evidence based medical therapy cont metoprolol succinate does not examine as volume overloaded ok to d/c to home from cardiac standpoint my office will call to arrange cardiac f/u in 2 weeks (3) Ischemic cardiomyopathy: As above (4) History of coronary artery stent placement: (5) Diabetes type 2, uncontrolled: Subjective Pt seen and examined, states that she feels well except for some post-op soreness at pocket site. Denies cp, sob, palpitations, lightheadedness or dizziness. tele reviewed: sinus rhythm without arrhythmia Review of Systems Review of Systems: All systems reviewed & are unremarkable except as noted in HPI & below Physical Exam Physical Exam: General: Awake, alert and oriented x 3. No acute distress. HEENT: Normocephalic, atraumatic. Pupils equal, round and reactive to light and accommodation. Extraocular muscles are intact. Anicteric sclera. Moist mucous membranes. Neck: No JVD. No bruit. Cardiovascular: Regular. Positive S-4. Normal S-1 and S-2. No S-3. No murmurs or rubs. Pulmonary: Clear to auscultation B/L. No rales, rhonchi or wheezing Abdomen: Bowel sounds x 4, soft. No rebound, guarding or tenderness. No organomegaly. Extremities: No clubbing, cyanosis or edema. +2 pedal pulses bilaterally. Skin: Warm and dry. Results & Data Vital Signs (Past 12 Hours) Vital Signs Temp Pulse Pulse Resp BP BP Pulse Ox 10/18/18 11:43 36.4 C L 65 19 103/69 97 10/18/18 07:49 36.6 C 61 18 107/70 94 10/18/18 03:30 36.6 C 60 16 100/65 95 (1) Diabetes type 2, uncontrolled Glycemic state: with hyperglycemia Qualified Code(s): E11.65 - Type 2 diabetes mellitus with hyperglycemia
--- NOTE | 2018-10-18 13:24 | Hospitalist Progress Note ---
Date of Service October 18, 2018 Assessment & Plan (1) Acute systolic (congestive) heart failure: Underlying ischemic cardiomyopathy with wall motion abnormalities and overall LVEF 25-30%. Improved with diuresis. Continue metoprolol succinate and lisinopril. s/p AICD placement due to recurrent Vtach in setting of severe cardiomyopathy (2) CAD (coronary artery disease): Cardiac catheterization performed on 10/13/2018 demonstrated severe coronary disease with chronic occlusion of RCA, 99% occlusion of LAD after first diagonal branch, mild disease of left circumflex. PCI of LAD stenosis with drug-eluting stent performed. Continue aspirin, ticagrelor, metoprolol, lisinopril, nitrates, statin. pt is counselled for the importance of taking dual antiplatelets without any interruption for at least 12 months for LUCIANO stent asked to take Brillinta and Aspirin after meal to prevent gastric ulcer /GI bleed (3) V-tach: Developed sustained ventricular tachycardia on 10/14. Underlying ischemic cardiomyopathy. Cardioversion performed and patient placed on amiodarone. ICD placement om 10/17/2018 pacemaker site healing well seen by EP cardiology today stable to be discharged home /restrictions of activity post device placement given to patient pacemaker site check in clinic next week scheduled by cardiology (4) HTN (hypertension): Cardiovascular medications as noted above. (5) Asthma: Stable. (6) Diabetes type 2, uncontrolled: Fingerstick blood sugars as high as 417 day of admission. Hemoglobin A1c 12.5. Being followed by Diabetes Team and Pharmacy. Receiving Lantus/NovoLog per protocol. Fasting blood sugar today 152. discharge diabetic medications adjusted Discharge DIABETIC MEDS RECOMMENDATION : A1c = 12.5 % on 10/13/18 Recommend Metformin + Lantus + NovoLog fixed dosing Metformin XR 500mg PO daily with evening meal. Continue to titrate metformin dosing upwards as recommended. Dosage increases should be made in increments of 500 mg weekly, up to 2,000 mg/day PO, given in divided doses. Doses above 2000 mg/day may be better tolerated if divided and given 3 times per day with meals. Max: 2,550 mg/day PO, in divided doses Lantus 30 units SQ daily in AM + NovoLog 10 units SQ TIDM Additional lifestyle modifications Support Patient Self-Management Healthy Lifestyle (diet, exercise, and smoking cessation) Disease self-management Prevention of complications (BP, Lipid goals, Immunizations) Consider outpatient Diabetes Self-Management Education & Support pt will benefit with out pt Diabetic clinic follow up (7) DVT prophylaxis: Receiving subcutaneous heparin. Ambulate. (8) Discharge planning issues: stable to be discharged home today Family Medicine follow-up with Dr. Foster. Subjective pt feels fine , no complain of SOB ,chest pain has mild discomfort at pacemaker site evaluated by EP cardiology this AM -stable to be discharged home Physical Exam Constitutional: WD/WN, vitals as above no acute distress Eyes: + anicteric sclerae ENMT: external ear and nose normal, oropharynx normal Neck: trachea midline, no thyromegaly Respiratory: no respiratory distress and no cough Auscultation: + diminished lung sounds and + wheezes; no crackles Cardiovascular: Extremities: + edema Gastrointestinal (Abdomen): normal bowel sounds, soft, nontender, no hepatosplenomegaly Musculoskeletal: no cyanosis or clubbing, extremities motor strength 5/5 left upper chest wall , pacemaker site healing well Skin: no rashes, warm and dry Neurologic: PERRL, EOMI, accommodation nl, no face palsy, no dysarthria Psychiatric: A+Ox3, euthymic affect Results & Data Vital Signs (Past 12 Hours) Vital Signs Temp Pulse Pulse Resp BP BP Pulse Ox 10/18/18 12:43 36.8 C 68 20 105/68 98 10/18/18 11:43 36.4 C L 65 19 103/69 97 10/18/18 07:49 36.6 C 61 18 107/70 94 10/18/18 03:30 36.6 C 60 16 100/65 95 (1) CAD (coronary artery disease) Associated angina: with stable angina Coronary Disease-Associated Artery/Lesion type: [place] artery [place] vs. transplanted heart: [place] heart Qualified Code(s): I25.118 - Atherosclerotic heart disease of [place] coronary artery with other forms of angina pectoris (2) Diabetes type 2, uncontrolled Glycemic state: with hyperglycemia Qualified Code(s): E11.65 - Type 2 diabetes mellitus with hyperglycemia (3) Asthma Asthma complication type: unspecified Asthma persistence: unspecified Asthma severity: unspecified severity Qualified Code(s): J45.909 - Unspecified asthma, uncomplicated
--- NOTE | 2018-10-18 13:57 | Discharge Summary ---
Date of Service October 18, 2018 Admission HPI Per Admitting Provider 53 yo female very non compliant with PMH of DM, HTN, dyslipidemia, anxiety, tobacco abuse HTN, depression, CAD s/p inferior STEMI PCI to RCA in 2011 present to the ER for worsening SOB for the past 2 weeks. Pt said that she has been having SOB with minimal exertion associated with pressure in her chest. She said that she feels like there is an elephant sitting in her chest. Pt said she has been having orthopnea and waking up in the middle of the night gasping for air. Pt said that she has not been taking her medications for over a week. 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 She has not been taking her insulin also. She said that she has been feeling very thirsty and has been drinking a lot of water. Her last Hba1c was 11 on 08/30/18. She said that she stopped taking her inhaler because she was doing fine without them. She said that she has low energy and get tired easily. Denies any fever, palpitation, dizziness, fever and dysuria. Principal Diagnosis NSTEMI/SEVERE ISCHEMIC CARDIOMYOPATHY /EF 25% /VTACH/S/P AICD PLACEMEMT Discharge Exam Constitutional WD/WN, vitals as above no acute distress Eyes + anicteric sclerae ENMT external ear and nose normal, oropharynx normal Neck trachea midline, no thyromegaly Respiratory no respiratory distress and no cough Auscultation: + diminished lung sounds and + wheezes; no crackles Cardiovascular Extremities: + edema Gastrointestinal (Abdomen) normal bowel sounds, soft, nontender, no hepatosplenomegaly Musculoskeletal no cyanosis or clubbing, extremities motor strength 5/5 Skin no rashes, warm and dry Neurologic PERRL, EOMI, accommodation nl, no face palsy, no dysarthria Psychiatric A+Ox3, euthymic affect Discharge Data Allergies Allergy/AdvReac Type Severity Reaction Status Date / Time Bactrim Allergy Severe "SEVERE GI Verified 04/29/17 15:45 UPSET" mold Allergy Severe SNEEZING, Verified 10/11/18 12:48 WATERY EYES, MAY CAUSE SOB-DEPENDS ON MOLD sulfamethoxazole Allergy Severe "SEVERE GI Verified 10/11/18 12:48 UPSET" trimethoprim Allergy Severe "SEVERE GI Verified 10/11/18 12:48 UPSET" adhesive Allergy Intermediate REDNESS, Verified 10/11/18 12:48 ITCHY, BLISTERS Aminoglycosides Allergy Intermediate ITCHY RASH Verified 10/11/18 12:48 bacitracin Allergy Intermediate ITCHY RASH Verified 10/11/18 12:48 neomycin Allergy Intermediate ITCHY RASH Verified 10/11/18 12:48 polymyxin B Allergy Intermediate ITCHY RASH Verified 10/11/18 12:48 Consultations 10/11/18 14:33 ED Decision to Admit Stat 10/11/18 16:58 Consult Cardiology Routine 10/13/18 11:56 Consult Cardiac Rehabilitation Routine 10/14/18 12:18 Consult Brim And Crown Presser Routine Procedures Performed Operation Date: 10/13/18 09:00 Actual Procedures p Cath, Left with Cors and Vent - Marco Hinojosa MD s Cineradiography w/Routine Exam - Marco Hinojosa MD p Drug Eluting Stent SGl Vessel - Mayo Kaur MD s POBA SGL Vessel - Mayo Kaur MD s IVUS Coronary Single Vessel - Mayo Kaur MD Operation Date: 10/17/18 14:00 Actual Procedures p ICD Insertion Single or Dual - Elvia Dalal DO s Cineradiography w/Routine Exam - Elvia Dalal DO s Venogram, Unilateral - Elvia Dalal DO Ordered Studies 10/11/18 13:22 CT angio chest PE protocol Stat 10/13/18 06:45 CL Cath Imgs for PACS use only Routine 10/13/18 12:01 CL IVUS Coronary Single Vessel Routine 10/17/18 10:15 EP Lab Images for PACS ONCE Hospital Course (1) Acute systolic (congestive) heart failure: Underlying ischemic cardiomyopathy with wall motion abnormalities and overall LVEF 25-30%. Improved with diuresis. Continue metoprolol succinate and lisinopril. s/p AICD placement due to recurrent Vtach in setting of severe cardiomyopathy (2) CAD (coronary artery disease): Cardiac catheterization performed on 10/13/2018 demonstrated severe coronary disease with chronic occlusion of RCA, 99% occlusion of LAD after first diagonal branch, mild disease of left circumflex. PCI of LAD stenosis with drug-eluting stent performed. Continue aspirin, ticagrelor, metoprolol, lisinopril, nitrates, statin. pt is counselled for the importance of taking dual antiplatelets without any interruption for at least 12 months for LUCIANO stent asked to take Brillinta and Aspirin after meal to prevent gastric ulcer /GI bleed (3) V-tach: Developed sustained ventricular tachycardia on 10/14. Underlying ischemic cardiomyopathy. Cardioversion performed and patient placed on amiodarone. ICD placement om 10/17/2018 pacemaker site healing well seen by EP cardiology today stable to be discharged home /restrictions of activity post device placement given to patient pacemaker site check in clinic next week scheduled by cardiology (4) HTN (hypertension): Cardiovascular medications as noted above. (5) Asthma: Stable. (6) Diabetes type 2, uncontrolled: Fingerstick blood sugars as high as 417 day of admission. Hemoglobin A1c 12.5. Being followed by Diabetes Team and Pharmacy. Receiving Lantus/NovoLog per protocol. Fasting blood sugar today 152. discharge diabetic medications adjusted Discharge DIABETIC MEDS RECOMMENDATION : A1c = 12.5 % on 10/13/18 Recommend Metformin + Lantus + NovoLog fixed dosing Metformin XR 500mg PO daily with evening meal. Continue to titrate metformin dosing upwards as recommended. Dosage increases should be made in increments of 500 mg weekly, up to 2,000 mg/day PO, given in divided doses. Doses above 2000 mg/day may be better tolerated if divided and given 3 times per day with meals. Max: 2,550 mg/day PO, in divided doses Lantus 30 units SQ daily in AM + NovoLog 10 units SQ TIDM Additional lifestyle modifications Support Patient Self-Management Healthy Lifestyle (diet, exercise, and smoking cessation) Disease self-management Prevention of complications (BP, Lipid goals, Immunizations) Consider outpatient Diabetes Self-Management Education & Support pt will benefit with out pt Diabetic clinic follow up (7) DVT prophylaxis: Receiving subcutaneous heparin. Ambulate. (8) Discharge planning issues: stable to be discharged home today Family Medicine follow-up with Dr. Foster. Total Time Total Time Spent Total Time Spent (In Minutes): approx 4 mins Total Time Includes: Examination of the Patient, Discharge Planning and Medication Reconciliation Discharge Plan Discharge Items Patient Disposition: Home - Home Health Services Reason For Visit: WORSENING SOB/CHEST DISCOMFORT Discharge Diagnosis: NSTEMI/SEVERE ISCHEMIC CARDIOMYOPATHY /EF 25% /VTACH/S/P AICD PLACEMEMT Discharge Goals: Decrease discomfort, Diagnostic testing and Therapeutic intervention Activity: As commented below Activity Comment: do not lift the left elbow over the left shoulder for 1 month Lifting: No more than 10 pounds Lifting Comment: do not lift more than 10 pounds with the left arm for 2 weeks Bathing: Keep incision dry Bathing Comment: can shower 10/19 just let water run over the incision do not scrub it Non-emergency contact: Primary Care Provider and Brick Setter Operator Call non-emergency contact if: you have any medication questions, your symptoms worsen, your pain is unusual for you, your pain is concerning for you, you have a fever, your temperature is above 100.5, your wound has increased redness, your wound has increased drainage and your wound pain has increased Diet: Carb Consistent or DM2 and Heart Healthy Addtl Provider Instructions: HOSPITAL FOLLOW UP WITH DR GERBER POP AT [facility] ON WednesdayOctober @ 10: 45 AM ( DR VILLEGAS SCHEDULE IS FULL ) Device and wound check in [facility] on Wednesday10/28/2018 If you notice any swelling at the incision site call my office immediately TAKE BRILLINTA AND ASPIRIN AFTER DINNER ( WITH MEALS ) NEEDS TO TAKE BRILLINTA UN INTURRPUTED FOR 12 MONTHS DISCHARGE RECOMMENDATION FOR DIABETES MANAGEMENT : A1c = 12.5 % on 10/13/18 Recommend Metformin + Lantus + NovoLog fixed dosing Metformin XR 500mg PO daily with evening meal. Continue to titrate metformin dosing upwards as recommended. Dosage increases should be made in increments of 500 mg weekly, up to 2,000 mg/day PO, given in divided doses. Doses above 2000 mg/day may be better tolerated if divided and given 3 times per day with meals. Max: 2,550 mg/day PO, in divided doses Lantus 30 units SQ daily in AM + NovoLog 10 units SQ TIDM CHECK BLOOD SUGAR 4 TIMES DAILY BEFORE BREAKFAST ( FASTING ) , BEFORE LUNCH , BEFORE DINNER AT BEDTIME PLEASE KEEP LOG OF THE BLOOD SUGAR AND BRING WITH YOUR NEXT PHYSICIAN VISIT Additional lifestyle modifications Support Patient Self-Management Healthy Lifestyle (diet, exercise, and smoking cessation) Disease self-management Prevention of complications (BP, Lipid goals, Immunizations) WILL BENEFIT WITH outpatient Diabetes CLINIC /MTM REFERRAL Call your Primary Care doctor if any of the following symptoms or problems start or get worse: * Shortness of breath or difficulty breathing * Wake up at night short of breath * Chest pain * Cough * Swelling of your hands, feet, or legs * More fatigued or tired with your normal activity * Palpitations - sudden fast heart beats WEIGHT * Weigh yourself every morning after using the bathroom. * Use the same scale. * Wear the same amount of clothing. * Write your weight down on a chart. * Call your Primary Care doctor if you gain more than 2-3 pounds in 1-2 days. MEDICATIONS * Use this discharge instruction sheet for medication instructions. * Take your medications at the time your doctor ordered. * Do not skip a dose of your medicines. * If you miss a dose of medicine, take it as soon as possible, but DO NOT DOUBLE A DOSE. * Read your medicine information when you get home. * Know all of the side effects of your medicine. If in doubt, ask your phar macist * Call your Primary Care doctor's office if you have any side effects. * Be sure all of your doctors know what medicine and herbs you take (including cold, flu, and herbal medicine). Take the following with you to your follow-up doctor appointments: * Weight Chart * Medication List * List of questions Do not drink excessive alcohol, beer or wine. Prescriptions: New amiodarone 200 mg Tablet 400 mg PO BID 30 Days Qty: 120 RF: 0 metoprolol succinate 25 mg Tablet Extended Release 24 Hr 25 mg PO QAM 30 Days Qty: 30 RF: 0 lisinopril 2.5 mg Tablet 2.5 mg PO QAM 30 Days Qty: 30 RF: 0 Brilinta 90 mg Tablet 90 mg PO BID 30 Days Qty: 60 RF: 0 metformin 500 mg tablet extended release 24 hr 500 mg PO DAILY Qty: 30 RF: 0 Lantus Solostar U-100 Insulin 100 unit/mL (3 mL) insulin pen 30 units SQ .am Qty: 15 RF: 0 Novolog Flexpen U-100 Insulin 100 unit/mL (3 mL) insulin pen 10 units SQ TIDM Qty: 15 RF: 3 needle (disp) 20 G 20 x 3/4 " needle .ROUTE .MEDSUPPLY Qty: 100 RF: 3 Continued aspirin 81 mg Tablet,Chewable 81 mg PO DAILY Qty: 0 RF: 0 lorazepam 0.5 mg Tablet 0.5 mg BUCCAL BID PRN (Reason: Anxiety) Qty: 0 RF: 0 citalopram 20 mg Tablet 20 mg PO DAILY Qty: 0 RF: 0 montelukast [Singulair] 10 mg Tablet 10 mg PO PM Qty: 0 RF: 0 atorvastatin [Lipitor] 80 mg Tablet 80 mg PO DAILY RF: 0 isosorbide mononitrate 60 mg Tablet Extended Release 24 Hr 60 mg PO QAM RF: 0 albuterol sulfate [Ventolin HFA] 90 mcg/actuation Hfa Aerosol Inhaler 1 puff INHALATION Q6H PRN (Reason: asthma) RF: 0 fenofibrate nanocrystallized [Tricor] 48 mg Tablet 48 mg PO DAILY RF: 0 mometasone-formoterol 100-5 mcg/actuation Hfa Aerosol Inhaler 2 puff INHALATION BID RF: 0 nitroglycerin 0.4 mg tablet, sublingual 0.4 mg sublingual UD RF: 0 Discontinued Novolog Flexpen U-100 Insulin 100 unit/mL (3 mL) Insulin Pen 14 unit SUBCUT QAM Qty: 0 RF: 0 Jardiance 25 mg Tablet 25 mg PO PM Qty: 0 RF: 0 lisinopril 20 mg Tablet 20 mg PO DAILY Qty: 0 RF: 0 Lantus Solostar U-100 Insulin 100 unit/mL (3 mL) Insulin Pen 45 unit SUBCUT BID Qty: 0 RF: 0 metformin 500 mg Tablet 1,000 mg PO DAILY RF: 0 metoprolol tartrate [Lopressor] 50 mg Tablet 25 mg PO BID RF: 0 Stand-Alone Forms: [facility] [employer] [facility]/Other Patient Handouts: Diabetes Type 2 Coping, Blood Sugar Check, Diabetes Manage A1C Test, Heart Risk Identifying Discharge Orders: Discharge Order (Routine); Ordered 10/18/18 Ordered By: Mary Cash Admission Data Admit Date/Time: 10/11/18 15:37 Attending Provider: Mary Cash Admit Provider: Sandra Caro Primary Care Provider: Jeremiah Foster Other Providers: Shelly Campos ; Mary Cash ; Souleymane Rincno ; Sandra Dunham ; Marco Hinojosa ; Sonali Landaverde Service: Telemetry Other Interventions: Discharge Summary Assessment (RN) Last Done: 10/18/18 12:43
--- NOTE | 2018-10-25 22:16 | Operative Report ---
DATE OF OPERATION: 10/17/2018 PREOPERATIVE DIAGNOSES: Sustained ventricular tachycardia, sinus bradycardia, and ischemic cardiomyopathy. POSTOPERATIVE DIAGNOSES: Sustained ventricular tachycardia, sinus bradycardia, and ischemic cardiomyopathy. PROCEDURE: A dual chamber rate responsive implantable cardiac defibrillator under fluoroscopic guidance, peripheral venogram. SURGEON: Elvia Dalal DO. COURT SUPERVISOR: None. ANESTHESIA: Monitored conscious sedation administered under my supervision by Jessica Guerra. Start time 1524, end time 1618. A total of 6 mg of Versed and 150 mcg of fentanyl. Additional medications, 10 mL of IV contrast. BLOOD LOSS: 20 mL. URINE OUTPUT: Not applicable. SPECIMENS: None. FINDINGS: See below. DRAINS: None. COMPLICATIONS: None. CONDITION: Stable. INDICATIONS: This is a 53-year-old female with a past medical history for coronary artery disease in which she underwent a PCI in the remote past. She was admitted to [facility] on 10/11/2018 secondary to heart failure. She underwent a nuclear stress test that was abnormal, so then she underwent a cardiac catheterization that showed severe multivessel disease with a chronic RCA and a high-grade LAD diagonal lesion. She did undergo PCI to the LAD and angioplasty to the diagonals and she was being monitored in our hospital post-procedure as well as being treated for acute systolic heart failure. The ejection fraction was 20%. During her hospitalization, she was then found to have sustained ventricular tachycardia. This was a few days after the PCI. She was started on amiodarone and did require a cardioversion to get her back in normal rhythm. She was then recommended a dual chamber ICD prior to discharge. Her other past medical history is diabetes, noncompliance, and sinus bradycardia. CONSENT: Consent was obtained prior to the patient going into the electrophysiology lab. The patient was informed of the risks, benefits, and alternatives of the procedure. Risks include but not limited to sudden cardiac , cardiac arrhythmias, cerebrovascular accident, myocardial infarction, injury to the blood vessels, chamber of the heart, lungs, bleeding and infection. The patient understood these risks and agreed to the procedure as planned. Informed consent was obtained. DESCRIPTION OF PROCEDURE: The patient was brought into the electrophysiology lab in a fasting state. She was connected to continuous nuclear monitoring technician. A timeout was performed to ensure patient's identity and procedure correctly. The patient was prepped and draped over the left infraclavicular space in normal surgical standard fashion. Monitored conscious sedation was given throughout the procedure for patient's comfort level. Preble precautions were maintained throughout the procedure. A 10 mL of 1% lidocaine and bupivacaine mixture were given in left deltopectoral groove. Incision was made in the left deltopectoral groove. Blunt dissection was performed down to identify the cephalic vein. The cephalic was not able to initially be identified, so peripheral venogram using 10 mL of IV contrast diluted in 10 mL of saline was performed. This identified the cephalic veins. So I continued doing blunt dissection and identified the cephalic vein. I isolated it using 0 silk ties. It was nicked with an 11-blade and a guidewire was inserted without any resistance. An 8-Spanish sheath was inserted over the guidewire without any resistance. The dilator was removed and a second guidewire was inserted through the 8-Spanish sheath to allow for retained venous access. The sheath was removed, flushed, dilator reinserted over it, and then it was reinserted along the guidewire. Guidewire and dilator removed. The right ventricular defibrillator lead was advanced into the right ventricle and positioned into the right ventricular apex under fluoroscopic guidance. There was adequate pacing and sensing thresholds and no diaphragmatic stimulation with high output pacing. The 8-Spanish sheath was then peeled away and the lead was fixated to the pectoralis muscle using 0 silk suture. A second 8-Spanish sheath was inserted over the retained guidewire without any resistance. Guidewire and dilator removed. The right atrial lead was then advanced into right atrium and positioned into the right atrial appendage under fluoroscopic guidance. There was adequate pacing and sensing thresholds and no diaphragmatic stimulation with high output pacing. The 8-Spanish sheath was peeled away and the lead was fixated to the pectoralis muscle using 0 silk suture. There was some backbleeding at the pacemaker site, so a pursestring using 2-[address] needle was performed around the suture site to control the backbleeding. Then, a defibrillator pocket was created using blunt dissection over the pectoralis muscle and then the pectoralis fascia. Pocket was flushed with copious amounts of bacitracin and saline wash and inspected for hemostasis. The defibrillator was then attached to the leads, making sure that the pins were in appropriate position, passed set screws, and set screws were all tightened. Defibrillator was then placed in the pocket making sure that the leads were lying flat beneath the device. A stay stitch using 0 silk suture was used to secure the device to the pectoralis muscle. Brett stat was placed in the pocket. The incision was then closed in a 3-layer fashion with 2-0 Vicryl interrupted suture followed by 3-0 Vicryl suture followed by 4-0 Monocryl running stitch and Dermabond was applied. EQUIPMENT: 1. The generator is a [employer] MRI XT DR Zuñiga [id number], serial number [id number]. 2. Right atrial lead, Medtronic 5076-52 cm, serial number [id number]. 3. Right ventricular lead, Medtronic 6935M-62 cm, serial number [id number]. INTRAOPERATIVE TESTIN. Right atrial lead: P-waves 2.9 millivolts, impedance 568 ohms, threshold 0.4 volts at 0.9 milliamps. 2. Right ventricular lead: R-waves 16.4 millivolts, impedance 723 ohms, threshold 1.3 volts at 1.9 milliamps. FINAL MEASUREMENTS THROUGH THE DEVICE: 1. Right atrial lead: P-waves 2.1 millivolts, impedance 456 ohms, threshold 0.5 volts at 0.4 milliseconds. 2. Right ventricular lead: R-waves 17 millivolts, impedance 608 ohms, threshold 0.5 volts at 0.4 milliseconds. FINAL PARAMETERS: MVP 60/140. Right atrial and right ventricular amplitude 3.5 volts, pulse width 0.4 milliseconds, sensitivity 0.3 millivolts, a VT monitor zone at 150 beats per minute for 20 detection intervals since her clinical VT not on amiodarone was 174 beats per minute and a VF zone at 200 beats per minute for 30/40 detection intervals. IMPRESSION: Successful implantation of a dual chamber rate responsive implantable cardiac defibrillator under fluoroscopic guidance along with peripheral venogram secondary to ischemic cardiomyopathy, sinus bradycardia, and sustained ventricular tachycardia. PLAN: Monitor patient overnight, 12-lead ECG, chest x-ray. She is not allowed to lift left elbow or left shoulder for 1 month. She cannot lift more than 10 pounds with the left arm for 2 weeks. She can shower in 2 days, let water run over the incision, do not scrub it. She should follow up in our [facility] in 1 week's time for device and wound check. I attest to the content of the Intraoperative Record and any orders documented therein. Any exception s are noted below.
== END 2018-10-18 13:30 | disposition home health service (06) | DRG 222 ==
LOC: ED 11:07 → 2S 15:37 → SUATTDRO 15:37 → 2S 16:37 → 1E 10-14 12:02 → 2S 10-15 10:09
PROC: EPB.ICD (2018-10-17 14:00)

== ENCOUNTER 2022-08-26 18:49 | Inpatient (IN) ==
[2022-08-26] MEDS ORDERED: SODIUM CHLORIDE 0.9% 1000ML 500 ML IV ONE (18:58)
--- NOTE | 2022-08-26 19:00 | Emergency Department Note ---
Impression & Plan Syncope, CVA (cerebrovascular accident) ED Provider Note NAME: EDWIN REDDY AGE: 57 SEX: F : 1965 ARRIVES VIA: Ambulance INFORMANT: Patient ED PROVIDER(S): Ozzie Osullivan DO CHIEF COMPLAINT: syncope HPI: Patient is a 57-year-old female who presents ER following a syncopal episode. Patient notes that she became very dizzy and passed out and hit her head. This occurred around 4 PM. She denies any chest pain or shortness of breath preceding or following the incident. She did have some chest pain yesterday and took a nitro and it resolved. No headache or change in vision. No neck pain. No belly pain, nausea, vomiting, or diarrhea. No dysuria, urgency, or frequency. No other exacerbating or remitting factors. PAST MEDICAL HISTORY:See Below PAST SURGICAL HISTORY:See Below FAMILY HISTORY:See Below SOCIAL HISTORY:See Below HOME MEDICATIONS:See Below ALLERGIES:See Below VITALS:See Below PHYSICAL EXAMINATION: GENERAL: Sitting up in bed, alert, well appearing, well nourished, no distress, non-toxic EYE EXAM: normal conjunctiva. PERRL and EOM's intact. OROPHARYNX: no exudate, no erythema, lips, buccal mucosa, and tongue normal and mucous membranes are moist NECK: supple, no nuchal rigidity, no adenopathy, non-tender LUNGS: Clear to auscultation. Normal chest wall mechanics HEART: no murmurs, S1 normal and S2 normal ABDOMEN: abdomen soft, non-tender, normo-active bowel sounds, no masses, no rebound or guarding. BACK: Back is symmetrical on inspection and there is no deformity, no midline tenderness, no CVA tenderness. UPPER EXTREMITIES: upper extremities are grossly normal. LOWER EXTREMITIES: No pitting edema. NEURO EXAM: Normal sensorium, cranial nerves II-XII intact, normal speech, no weakness of arms, no weakness of legs. No drift. Finger to nose intact. Gross sensation intact. MEDICAL DECISION MAKING: Patient is a 57-year-old female who presents ER for above-stated complaint. Patient has an extensive history of V. tach, ischemic cardiomyopathy with an ICD, hypertension, anxiety, asthma, CAD. IV was established blood work was obtained. External records reviewed. Labs show mild leukocytosis 11.5 thousand. No significant anemia. BMP with slightly elevated glucose at 222. LFTs and troponin was negative x2. TSH and lipase was unremarkable. COVID was negative. CT head and cervical spine was unremarkable with the exception of age-indeterminate infarct. Chest x-ray was clean. Although I favor the syncopal episode was not related to the CVA patient does appear to have a recent possible subacute CVA. Interrogation of the [employer] device shows 5 episodes of V. tach since May with one yesterday. She did not have an episode today. EKG was unchanged from previous. Triage Nursing notes reviewed. Limited review of prior medical records performed Vital Signs: reviewed and remarkable for no significant abnormalities Differential diagnosis: Differential diagnosis includes etiologies such as vasovagal event, infection, hypoglycemia, electrolyte abnormalities, cardiac sources, intracerebral event, toxicologic, neurologic, as well as others were entertained. ER treatment provided: See below Diagnostics interpreted by me include EKG and cardiac monitoring as listed below: -Cardiac Monitoring: An order was placed for continuous cardiac monitoring. The monitor shows a rate of 80 with sinus rhythm. -ECG: Sinus rhythm rate of 92 Normal axis Inferior Q waves ST depressions in the high lateral leads Septal Q waves QTc 494 No significant change from December 2018 -Laboratory studies:Interpreted by me as stated above in MDM and shown below. Imaging studies: Xrays: As interpreted by me: Portable AP upright 1 view of the chest is unremarkable CTs show: CT head and cervical spine shows an age-indeterminate infarct Consultation(s): Discussed with Dr. Rutherford for further evaluation management treatment Procedures:none Critical Care: None Past Med/Surg History Medical History (Updated 08/27/22 @ 00:07 by Ozzie Osullivan DO) Anxiety Asthma CAD (coronary artery disease) Chest pain CHF (congestive heart failure) Diabetes Diabetes type 2, uncontrolled Genital herpes HTN (hypertension) Ischemic cardiomyopathy Myocardial infarction Tobacco abuse Surgical History H/O exploratory laparotomy H/O: hysterectomy History of coronary artery stent placement Previous section S/P TAO-BSO Family History Other Cancer Diabetes Heart disease Hypertension Social History Smoking Status: Light tobacco smoker Tobacco Type: Cigarettes Second Hand Exposure: Yes; Hx Alcohol Use: No Hx Substance Use: No Preferred Language: [place] Communication Ability: Effective 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 Required: No Beliefs That Will Affect Care: None marital status: Current Living Situation: Alone current occupational status: unemployed Feels Safe at Home: Yes Assistive Devices: None Allergies Allergies Allergy/AdvReac Type Severity Reaction Status Date / Time Bactrim Allergy Severe "SEVERE GI Verified 04/29/17 15:45 UPSET" mold Allergy Severe SNEEZING, Verified 08/26/22 22:51 WATERY EYES, MAY CAUSE SOB-DEPENDS ON MOLD sulfamethoxazole Allergy Severe "SEVERE GI Verified 08/26/22 22:51 UPSET" trimethoprim Allergy Severe "SEVERE GI Verified 08/26/22 22:51 UPSET" adhesive Allergy Intermediate REDNESS, Verified 08/26/22 22:51 ITCHY, BLISTERS Aminoglycosides Allergy Intermediate ITCHY RASH Verified 08/26/22 22:51 bacitracin Allergy Intermediate ITCHY RASH Verified 08/26/22 22:51 neomycin Allergy Intermediate ITCHY RASH Verified 08/26/22 22:51 polymyxin B Allergy Intermediate ITCHY RASH Verified 08/26/22 22:51 Home Meds Home Medications Medication Instructions Recorded Confirmed aspirin 81 mg chewable tablet 81 mg PO DAILY ##0 11/10/14 08/26/22 citalopram 20 mg tablet 20 mg PO DAILY ##0 09/23/17 08/26/22 montelukast 10 mg tablet 10 mg PO QA asthma ##0 09/23/17 08/26/22 (Singulair) albuterol sulfate 90 mcg/actuation 2 puff inhalation Q6H PRN asthma 08/07/18 08/26/22 aerosol inhaler (Ventolin HFA) fenofibrate nanocrystallized 48 mg 48 mg PO DAILY 08/07/18 08/26/22 tablet (Tricor) isosorbide mononitrate 60 mg 60 mg PO QAM 08/07/18 08/26/22 tablet,extended release 24 hr mometasone-formoterol HFA 100 2 puff inhalation BID 08/07/18 08/26/22 mcg-5 mcg/actuation aerosol inhaler nitroglycerin 0.4 mg sublingual 0.4 mg sublingual UD 10/11/18 08/26/22 tablet gabapentin 300 mg capsule 600 mg PO QAM 12/18/18 08/26/22 (Neurontin) insulin glargine 100 unit/mL (3 60 units subcut QAM 12/18/18 08/26/22 mL) subcutaneous pen (Lantus Solostar U-100 Insulin) lisinopril 2.5 mg tablet (Zestril) 2.5 mg PO DAILY 12/18/18 08/26/22 amlodipine 5 mg tablet (Norvasc) 5 mg PO DAILY 05/17/20 08/26/22 empagliflozin 25 mg tablet 25 mg PO DAILY 05/17/20 08/26/22 (Jardiance) gabapentin 300 mg capsule 300 mg PO QPM 05/17/20 08/26/22 metoprolol succinate 50 mg 50 mg PO DAILY 05/17/20 08/26/22 tablet,extended release 24 hr mirtazapine 15 mg tablet 7.5 mg PO HS 05/17/20 08/26/22 omega-3 fatty acids 1,000 mg PO DAILY 05/17/20 08/26/22 polyethylene glycol 3350 17 gram 17 g PO DAILY PRN Constipation 05/17/20 08/26/22 oral powder packet (Miralax) rosuvastatin 40 mg tablet 40 mg PO DAILY 05/17/20 08/26/22 diclofenac sodium 1 % topical gel 0 g topical QID PRN Pain 08/26/22 08/26/22 dulaglutide 3 mg/0.5 mL 3 mg subcut WE 08/26/22 08/26/22 subcutaneous pen injector (Trulicity) metformin 500 mg tablet,extended 1,000 mg PO BID 08/26/22 08/26/22 release 24 hr ondansetron HCl 4 mg tablet 4 mg PO Q8 PRN Nausea 08/26/22 08/26/22 ticagrelor 90 mg tablet (Brilinta) 90 mg PO AMHS 08/26/22 08/26/22 vitamin B complex 1 tab PO DAILY 08/26/22 08/26/22 Results & Data (ED) Vital Signs Vital Signs - 24 hr 08/26/22 18:57 08/26/22 18:57 08/26/22 19:04 Temperature 36.8 C Temperature Source Oral Pulse Rate 90 87 Pulse Rate [Finger] 83 Pulse Rate from SpO2 Sensor Respiratory Rate 18 18 18 Respiratory Effort / Characteristics Non-Labored Non-Labored Respiratory Depth Normal Normal Respiratory Pattern Regular Regular Blood Pressure 159/85 H Blood Pressure [Right Arm] 137/77 Blood Pressure Mean 109 Blood Pressure Mean [Right Arm] 97 Blood Pressure Position Lying Blood Pressure Position [Right Arm] Sitting Pulse Oximetry 96 94 94 Oxygen Delivery Method Room Air Room Air Room Air Sepsis Recent Fever Within 48 Hours No Sepsis New/Unexplained Change in Mental Status No Sepsis Action Taken by Nursing No Action Required 08/26/22 19:05 08/26/22 19:06 08/26/22 19:30 Temperature Temperature Source Pulse Rate 89 88 88 Pulse Rate [Finger] Pulse Rate from SpO2 Sensor 88 Respiratory Rate 16 19 Respiratory Effort / Characteristics Respiratory Depth Respiratory Pattern Blood Pressure Blood Pressure [Right Arm] Blood Pressure Mean Blood Pressure Mean [Right Arm] Blood Pressure Position Blood Pressure Position [Right Arm] Pulse Oximetry 93 Oxygen Delivery Method Sepsis Recent Fever Within 48 Hours Sepsis New/Unexplained Change in Mental Status Sepsis Action Taken by Nursing 08/26/22 19:39 08/26/22 19:39 08/26/22 20:12 Temperature Temperature Source Pulse Rate 83 85 Pulse Rate [Finger] Pulse Rate from SpO2 Sensor Respiratory Rate 16 15 Respiratory Effort / Characteristics Respiratory Depth Respiratory Pattern Blood Pressure 108/76 Blood Pressure [Right Arm] Blood Pressure Mean 86 Blood Pressure Mean [Right Arm] Blood Pressure Position Blood Pressure Position [Right Arm] Pulse Oximetry Oxygen Delivery Method Sepsis Recent Fever Within 48 Hours Sepsis New/Unexplained Change in Mental Status Sepsis Action Taken by Nursing 08/26/22 20:30 08/26/22 20:30 08/26/22 21:00 Temperature Temperature Source Pulse Rate 81 81 Pulse Rate [Finger] Pulse Rate from SpO2 Sensor 80 82 Respiratory Rate 16 17 Respiratory Effort / Characteristics Respiratory Depth Respiratory Pattern Blood Pressure 140/84 Blood Pressure [Right Arm] Blood Pressure Mean 102 Blood Pressure Mean [Right Arm] Blood Pressure Position Blood Pressure Position [Right Arm] Pulse Oximetry 93 86 L Oxygen Delivery Method Sepsis Recent Fever Within 48 Hours Sepsis New/Unexplained Change in Mental Status Sepsis Action Taken by Nursing 08/26/22 21:01 08/26/22 21:01 08/26/22 21:34 Temperature Temperature Source Pulse Rate 83 88 Pulse Rate [Finger] Pulse Rate from SpO2 Sensor 83 Respiratory Rate 18 25 H Respiratory Effort / Characteristics Respiratory Depth Respiratory Pattern Blood Pressure 82/51 L Blood Pressure [Right Arm] Blood Pressure Mean 61 Blood Pressure Mean [Right Arm] Blood Pressure Position Blood Pressure Position [Right Arm] Pulse Oximetry 94 Oxygen Delivery Method Sepsis Recent Fever Within 48 Hours Sepsis New/Unexplained Change in Mental Status Sepsis Action Taken by Nursing 08/26/22 22:00 08/26/22 22:01 08/26/22 22:01 Temperature Temperature Source Pulse Rate 78 80 Pulse Rate [Finger] Pulse Rate from SpO2 Sensor 79 80 Respiratory Rate 15 16 Respiratory Effort / Characteristics Respiratory Depth Respiratory Pattern Blood Pressure Blood Pressure [Right Arm] Blood Pressure Mean 25 Blood Pressure Mean [Right Arm] Blood Pressure Position Blood Pressure Position [Right Arm] Pulse Oximetry 95 94 Oxygen Delivery Method Sepsis Recent Fever Within 48 Hours Sepsis New/Unexplained Change in Mental Status Sepsis Action Taken by Nursing 08/26/22 22:03 08/26/22 23:13 Temperature Temperature Source Pulse Rate 90 77 Pulse Rate [Finger] Pulse Rate from SpO2 Sensor 89 Respiratory Rate 18 Respiratory Effort / Characteristics Respiratory Depth Respiratory Pattern Blood Pressure Blood Pressure [Right Arm] Blood Pressure Mean Blood Pressure Mean [Right Arm] Blood Pressure Position Blood Pressure Position [Right Arm] Pulse Oximetry 93 Oxygen Delivery Method Sepsis Recent Fever Within 48 Hours Sepsis New/Unexplained Change in Mental Status Sepsis Action Taken by Nursing Laboratory Data 08/26/22 19:17 08/26/22 19:17 Lab Results 08/26/22 08/26/22 08/26/22 Range/Units 19:07 19:17 19:17 WBC 11.56 H (4.8-10.8) K/ul RBC 5.22 (4.20-5.40) M/uL Hgb 15.1 (12.0-16.0) g/dl Hct 46.6 (37.0-47.0) % MCV 89.3 (80.0-100.0) fL MCH 28.9 (25.0-34.0) pg MCHC 32.4 (32.0-36.0) g/dL RDW Std Deviation 47.6 H (36.4-46.3) fL RDW Coeff of [place] 14.7 H (11.5-14.5) % Plt Count 321 (130-400) K/uL MPV 9.1 L (9.4-12.4) fL Immature Gran % (Auto) 0.5 % Neut % (Auto) 78.0 % Lymph % (Auto) 16.3 % [place] % (Auto) 3.8 % Eos % (Auto) 0.8 % Baso % (Auto) 0.6 % Neut # (Auto) 9.01 H (1.40-6.50) K/uL Lymph # (Auto) 1.89 (1.2-3.4) K/uL [place] # (Auto) 0.44 (0.11-0.59) K/uL Eos # (Auto) 0.09 (0-0.50) K/uL Baso # (Auto) 0.07 (0-0.2) K/uL Immature Gran # (Auto) 0.06 (0.01-0.20) K/uL Sodium 138 (136-145) mmol/L Potassium 3.9 (3.5-5.1) mmol/L Chloride 99 (98-107) mmol/L Carbon Dioxide 25 (21-32) mmol/L Anion Gap 14 H (3-11) BUN 13 (6-23) mg/dl Creatinine 0.76 (0.6-1.2) mg/dl Est Cr Clr Drug Dosing 79.3 ml/min Est GFR ( Amer) 100.2 ml/min Est GFR (Non-Af Amer) 86.5 ml/min BUN/Creatinine Ratio 17.1 (10-20) Glucose 222 H (70-99(Fasting)) mg/dl POC Glucose (70-99) mg/dl Lactate (0.4-2.0) mmol/L Calcium 9.9 (8.6-10.3) mg/dl Magnesium (1.7-2.4) mg/dl Total Bilirubin 0.4 (0.2-1.0) mg/dl AST 14 (13-39) U/L ALT 14 (7-52) U/L Alkaline Phosphatase 79 (34-104) U/L Troponin I High Sens 9.4 (0-14) pg/ml Total Protein 7.7 (6.0-8.3) gm/dl Albumin 4.4 (3.4-5.0) gm/dl Globulin 3.3 (2.5-4.0) gm/dl Albumin/Globulin Ratio 1.3 (0.9-2) Lipase 43 (11-82) U/L SARS-CoV-2, RNA, NAAT NEGATIVE (NEGATIVE) 05/10/23 05/10/23 05/10/23 Range/Units 19:17 19:17 21:23 WBC (4.8-10.8) K/ul RBC (4.20-5.40) M/uL Hgb (12.0-16.0) g/dl Hct (37.0-47.0) % MCV (80.0-100.0) fL MCH (25.0-34.0) pg MCHC (32.0-36.0) g/dL RDW Std Deviation (36.4-46.3) fL RDW Coeff of [place] (11.5-14.5) % Plt Count (130-400) K/uL MPV (9.4-12.4) fL Immature Gran % (Auto) % Neut % (Auto) % Lymph % (Auto) % [place] % (Auto) % Eos % (Auto) % Baso % (Auto) % Neut # (Auto) (1.40-6.50) K/uL Lymph # (Auto) (1.2-3.4) K/uL [place] # (Auto) (0.11-0.59) K/uL Eos # (Auto) (0-0.50) K/uL Baso # (Auto) (0-0.2) K/uL Immature Gran # (Auto) (0.01-0.20) K/uL Sodium (136-145) mmol/L Potassium (3.5-5.1) mmol/L Chloride (98-107) mmol/L Carbon Dioxide (21-32) mmol/L Anion Gap (3-11) BUN (6-23) mg/dl Creatinine (0.6-1.2) mg/dl Est Cr Clr Drug Dosing ml/min Est GFR ( Amer) ml/min Est GFR (Non-Af Amer) ml/min BUN/Creatinine Ratio (10-20) Glucose (70-99(Fasting)) mg/dl POC Glucose 210 H (70-99) mg/dl Lactate (0.4-2.0) mmol/L Calcium (8.6-10.3) mg/dl Magnesium 1.7 (1.7-2.4) mg/dl Total Bilirubin (0.2-1.0) mg/dl AST (13-39) U/L ALT (7-52) U/L Alkaline Phosphatase (34-104) U/L Troponin I High Sens 7.7 (0-14) pg/ml Total Protein (6.0-8.3) gm/dl Albumin (3.4-5.0) gm/dl Globulin (2.5-4.0) gm/dl Albumin/Globulin Ratio (0.9-2) Lipase (11-82) U/L SARS-CoV-2, RNA, NAAT (NEGATIVE) 08/26/22 Range/Units 23:46 WBC (4.8-10.8) K/ul RBC (4.20-5.40) M/uL Hgb (12.0-16.0) g/dl Hct (37.0-47.0) % MCV (80.0-100.0) fL MCH (25.0-34.0) pg MCHC (32.0-36.0) g/dL RDW Std Deviation (36.4-46.3) fL RDW Coeff of [place] (11.5-14.5) % Plt Count (130-400) K/uL MPV (9.4-12.4) fL Immature Gran % (Auto) % Neut % (Auto) % Lymph % (Auto) % [place] % (Auto) % Eos % (Auto) % Baso % (Auto) % Neut # (Auto) (1.40-6.50) K/uL Lymph # (Auto) (1.2-3.4) K/uL [place] # (Auto) (0.11-0.59) K/uL Eos # (Auto) (0-0.50) K/uL Baso # (Auto) (0-0.2) K/uL Immature Gran # (Auto) (0.01-0.20) K/uL Sodium (136-145) mmol/L Potassium (3.5-5.1) mmol/L Chloride (98-107) mmol/L Carbon Dioxide (21-32) mmol/L Anion Gap (3-11) BUN (6-23) mg/dl Creatinine (0.6-1.2) mg/dl Est Cr Clr Drug Dosing ml/min Est GFR ( Amer) ml/min Est GFR (Non-Af Amer) ml/min BUN/Creatinine Ratio (10-20) Glucose (70-99(Fasting)) mg/dl POC Glucose (70-99) mg/dl Lactate 2.1 H* (0.4-2.0) mmol/L Calcium (8.6-10.3) mg/dl Magnesium (1.7-2.4) mg/dl Total Bilirubin (0.2-1.0) mg/dl AST (13-39) U/L ALT (7-52) U/L Alkaline Phosphatase (34-104) U/L Troponin I High Sens (0-14) pg/ml Total Protein (6.0-8.3) gm/dl Albumin (3.4-5.0) gm/dl Globulin (2.5-4.0) gm/dl Albumin/Globulin Ratio (0.9-2) Lipase (11-82) U/L SARS-CoV-2, RNA, NAAT (NEGATIVE) Administered Medications Discontinued Medications Aspirin (Aspirin Chew 324 Mg) 324 mg PO NOW STA Stop: 08/26/22 22:09 Last Admin: 08/26/22 22:47 Dose: 324 mg Documented By: DEIDRA Sodium Chloride (Nss 1000ml) 500 mls @ 999 mls/hr IV .Q31M ONE Stop: 08/26/22 19:28 Last Infusion: 08/26/22 20:42 Dose: 0 mls/hr Documented By: Admin: 08/26/22 19:42 Dose: 999 mls/hr Documented By: DEIDRA Imaging Data Radiologist's Impression: Chest X-Ray 08/26/22 18:58 XR chest 1V portable HISTORY: 57 years-old Female Chest pain, nonspecific COMPARISON: 10/09/2021 TECHNIQUE: AP view of the chest FINDINGS: Cardiomediastinal and hilar silhouettes are within normal limits. Left subclavian pacer/AICD. No pneumothorax, pleural effusion or overt pulmonary edema. Mild linear atelectasis versus scarring of left lung base. Subtle ill- defined opacity in the right midlung. Degenerative changes of the shoulders and spine. IMPRESSION: 1. Cardiomegaly without pulmonary edema. 2. Bibasilar atelectasis. 3. Ill-defined right mid lung opacity is favored to represent summation density. Developing airspace disease could appear similarly. ACT 112: Negative or not required by law. The above report was generated using voice recognition software. It may contain grammatical, syntax or spelling errors. Electronically signed by: Derrek Johnson M.D. 08/26/2022 8:[address] 08/26/22 18:59 CT cervical spine wo con CT DOSE: 982.91 mGy.cm CLINICAL HISTORY: 57 years-old Female with fall. Acute neck pain status post fall COMPARISON: Head CT of same day TECHNIQUE: Multiple axial CT images of the cervical spine were obtained without contrast. A dose lowering technique was utilized adhering to the principles of ALARA. FINDINGS: Straightening of the normal cervical lordosis. Demineralized appearance of the bones. No acute cervical spine fracture or subluxation identified. The cervical soft tissues appear unremarkable. Partially imaged left subclavian pacer leads. Hypodense 1.1 cm right-sided thyroid nodule. The visualized lung apices appear clear. IMPRESSION: No acute cervical spine fracture or subluxation. ACT 112: Negative or not required by law. The above report was generated using voice recognition software. It may contain grammatical, syntax or spelling errors. Electronically signed by: Derrek Johnson M.D. 08/26/2022 8:[address] 08/26/22 18:59 CT head/brain wo con CLINICAL HISTORY: 57 years-old Female with fall. Acute head trauma status post fall TECHNIQUE: Multiple axial CT images of the head were obtained without contrast. A dose lowering technique was utilized adhering to the principles of ALARA. COMPARISON: CT cervical spine of same day FINDINGS: No acute intracranial hemorrhage, midline shift, intracranial mass, hydrocephalus, territorial ischemia or abnormal extra-axial collection. Development of ill-defined white matter hypodensities in the cerebral hemispher es with subcentimeter hypodense focus in the right lentiform nucleus. Mild involutional changes. The calvarium is intact. The paranasal sinuses, mastoid air cells, and middle ear cavities are clear. IMPRESSION: 1. No acute intracranial abnormality or calvarial fracture. 2. Involutional changes with chronic microvascular ischemic disease, progressed from the 2006 comparison. 3. Subcentimeter age-indeterminate lacunar infarct of the right lentiform nucleus. ACT 112: Negative or not required by law. The above report was generated using voice recognition software. It may contain grammatical, syntax or spelling errors. Electronically signed by: Derrek Johnson M.D. 08/26/2022 8:18 PM Discharge Plan Visit Data Chief Complaint: Syncope (Near Syncope) Stated Complaint: SYNCOPE ED Provider: Ozzie Osullivan Discharge Problem: Syncope, CVA (cerebrovascular accident) Forms Stand Alone Forms: My [facility] Prescriptions Prescriptions: No Action aspirin 81 mg Tablet,Chewable 81 mg PO DAILY Qty: 0 Patient Comments: Patient states she is too busy and doesn't have time to take her meds citalopram 20 mg Tablet 20 mg PO DAILY Qty: 0 Patient Comments: Patient states she is too busy and doesn't have time to take her meds montelukast [Singulair] 10 mg Tablet 10 mg PO QAM Qty: 0 Patient Comments: Patient states she is too busy and doesn't have time to take her meds. isosorbide mononitrate 60 mg Tablet Extended Release 24 Hr 60 mg PO QAM albuterol sulfate [Ventolin HFA] 90 mcg/actuation Hfa Aerosol Inhaler 2 puff INHALATION Q6H PRN (Reason: asthma) fenofibrate nanocrystallized [Tricor] 48 mg Tablet 48 mg PO DAILY Patient Comments: Patient states she is too busy and doesn't have time to take her meds mometasone-formoterol 100-5 mcg/actuation Hfa Aerosol Inhaler 2 puff INHALATION BID Patient Comments: Patient states she is too busy and doesn't have time to take her meds. nitroglycerin 0.4 mg tablet, sublingual 0.4 mg sublingual UD gabapentin [Neurontin] 300 mg capsule 600 mg PO QAM insulin glargine [Lantus Solostar U-100 Insulin] 100 unit/mL (3 mL) insulin pen 60 units SQ QAM lisinopril [Zestril] 2.5 mg tablet 2.5 mg PO DAILY polyethylene glycol 3350 [Miralax] 17 gram Powder In Packet 17 g PO DAILY PRN (Reason: Constipation) metoprolol succinate 50 mg tablet extended release 24 hr 50 mg PO DAILY amlodipine [Norvasc] 5 mg tablet 5 mg PO DAILY gabapentin 300 mg capsule 300 mg PO QPM mirtazapine 15 mg tablet 7.5 mg PO HS [place] 3 Capsule 1,000 mg PO DAILY rosuvastatin 40 mg tablet 40 mg PO DAILY Jardiance 25 mg tablet 25 mg PO DAILY ondansetron HCl 4 mg tablet 4 mg PO Q8 PRN (Reason: Nausea) vitamin B complex Tablet 1 tab PO DAILY metformin 500 mg tablet extended release 24 hr 1,000 mg PO BID diclofenac sodium 1 % Gel 0 g TOPICAL QID PRN (Reason: Pain) Brilinta 90 mg tablet 90 mg PO AMHS Trulicity 3 mg/0.5 mL pen injector 3 mg SUBCUT WE Rx Instructions: Takes on sun Referrals Referrals: Jeremiah Foster MD [Primary Care Provider] -
[2022-08-26 19:43] LABS: Basophils # (auto) 0.07 K/uL (0-0.2); Basophils % (auto) 0.6 %; Eosinophils # (auto) 0.09 K/uL (0-0.50); Eosinophils % (auto) 0.8 %; Hematocrit (blood only) 46.6 % (37.0-47.0); Hemoglobin 15.1 g/dl (12.0-16.0); Immature Granulocytes # (auto) 0.06 K/uL (0.01-0.20); Immature Granulocytes % (auto) 0.5 %; Lymphocytes # (auto) 1.89 K/uL (1.2-3.4); Lymphocytes % (auto) 16.3 %; Mean Corpuscular Hemoglobin 28.9 pg (25.0-34.0); Mean Corpuscular Hgb Conc 32.4 g/dL (32.0-36.0); Mean Corpuscular Volume 89.3 fL (80.0-100.0); Mean Platelet Volume 9.1 fL (9.4-12.4); Monocytes # (auto) 0.44 K/uL (0.11-0.59); Monocytes % (auto) 3.8 %; Neutrophils # (auto) 9.01 K/uL (1.40-6.50); Platelet Count 321 K/uL (130-400); RDW Coefficient of Variation 14.7 % (11.5-14.5); RDW Standard Deviation 47.6 fL (36.4-46.3); Red Blood Count 5.22 M/uL (4.20-5.40); White Blood Count 11.56 K/ul (4.8-10.8)
[2022-08-26 20:01] LABS: Albumin Level 4.4 gm/dl (3.4-5.0); Bilirubin,Total 0.4 mg/dl (0.2-1.0); Calcium 9.9 mg/dl (8.6-10.3); Potassium 3.9 mmol/L (3.5-5.1)
--- NOTE | 2022-08-26 20:03 | XRay Report ---
XR chest 1V portable HISTORY: 57 years-old Female Chest pain, nonspecific COMPARISON: 10/09/2021 TECHNIQUE: AP view of the chest FINDINGS: Cardiomediastinal and hilar silhouettes are within normal limits. Left subclavian pacer/AICD. No pneu mothorax, pleural effusion or overt pulmonary edema. Mild linear atelectasis versus scarring of left lung base. Subtle ill-defined opacity in the right midlung. Degenerative changes of the shoulders and spine. IMPRESSION: 1. Cardiomegaly without pulmonary edema. 2. Bibasilar atelectasis. 3. Ill-defined right mid lung opacity is favored to represent summation density. Developing airspace disease could appear similarly. ACT 112: Negative or not required by law. The above report was generated using voice recognition software. It may contain grammatical, syntax o r spelling errors. Electronically signed by: Derrek Johnson M.D. 08/26/2022 8:01 PM
[2022-08-26 20:08] LABS: Albumin Globulin Ratio 1.3 (0.9-2); BUN Creatinine Ratio 17.1 (10-20); Creatinine Clr Calc Pharmacy 79.3 ml/min; Est GFR (African American) 100.2 ml/min; Est GFR (Non-African American) 86.5 ml/min; Globulin 3.3 gm/dl (2.5-4.0); Total Protein 7.7 gm/dl (6.0-8.3)
[2022-08-26 20:09] LABS: Troponin I High Sensitivity 9.4 pg/ml (0-14)
--- NOTE | 2022-08-26 20:21 | CT Scan Report ---
CT head/brain wo con CLINICAL HISTORY: 57 years-old Female with fall. Acute head trauma status post fall TECHNIQUE: Multiple axial CT images of the head were obtained without contrast. A dose lowering tech nique was utilized adhering to the principles of ALARA. COMPARISON: CT cervical spine of same day FINDINGS: No acute intracranial hemorrhage, midline shift, intracranial mass, hydrocephalus, territorial ischem ia or abnormal extra-axial collection. Development of ill-defined white matter hypodensities in the c erebral hemispheres with subcentimeter hypodense focus in the right lentiform nucleus. Mild involutio nal changes. The calvarium is intact. The paranasal sinuses, mastoid air cells, and middle ear cavities are clear . IMPRESSION: 1. No acute intracranial abnormality or calvarial fracture. 2. Involutional changes with chronic microvascular ischemic disease, progressed from the 2006 compari son. 3. Subcentimeter age-indeterminate lacunar infarct of the right lentiform nucleus. ACT 112: Negative or not required by law. The above report was generated using voice recognition software. It may contain grammatical, syntax o r spelling errors. Electronically signed by: Derrek Johnson M.D. 08/26/2022 8:18 PM
--- NOTE | 2022-08-26 20:25 | CT Scan Report ---
CT cervical spine wo con CT DOSE: 982.91 mGy.cm CLINICAL HISTORY: 57 years-old Female with fall. Acute neck pain status post fall COMPARISON: Head CT of same day TECHNIQUE: Multiple axial CT images of the cervical spine were obtained without contrast. A dose low ering technique was utilized adhering to the principles of ALARA. FINDINGS: Straightening of the normal cervical lordosis. Demineralized appearance of the bones. No ac [place] cervical spine fracture or subluxation identified. The cervical soft tissues appear unremarkable. Partially imaged left subclavian pacer leads. Hypodens e 1.1 cm right-sided thyroid nodule. The visualized lung apices appear clear. IMPRESSION: No acute cervical spine fracture or subluxation. ACT 112: Negative or not required by law. The above report was generated using voice recognition software. It may contain grammatical, syntax o r spelling errors. Electronically signed by: Derrek Johnson M.D. 08/26/2022 8:23 PM
[2022-08-26] MEDS ORDERED: ASPIRIN CHEW 324 MG PO STA (22:08)
[2022-08-26] MEDS ORDERED: NICOTINE POLACRILEX 2 MG GUM MT PRN (22:13)
[2022-08-26] MEDS ORDERED: LACTATED RINGER'S 1,000 ML IV ONE (22:32)
--- NOTE | 2022-08-27 00:02 | History & Physical Report ---
Date of Service August 27, 2022 Assessment & Plan (1) Hypotension: Plan: Possible hypovolemia Rule out malignant arrhythmia, history of VT status post cardioversion Autonomic neuropathy possibly contributory given poorly controlled DM 2, last outpatient hemoglobin A1c of 8.20 December 2021 chronic systolic heart failure, patient on the dry side Old CVA on CAT scan hx CAD status post stent mild MR hyperlipidemia on statin Rx hx sarcoidosis, currently not on active treatment GERD symptoms, currently not on maintenance medication cervical cancer status post surgery PTSD/anxiety/mood disorder, patient anxious during encounter ongoing tobacco abuse medical noncompliance PCU IVF Decrease maintenance beta-grant for now; hold other BP meds until BP stable ICD interrogation Cardiology consult Re: Hypotension; follow-up eval (patient overdue for office visit) TTE and carotid Dopplers, updated lipid panel for old stroke work-up Famotidine for GERD Basal bolus insulin, ISS BG goal 1 10-1 40, carb count coverage, update hemoglobin A1c Nicotine patch DVT prophylaxis. Lovenox subcu Full code Text document was generated using [employer] voice recognition software. It may contain grammatical or spelling errors. Kindly contact undersigned for clarification of any documentation item in question. History of Present Illness Chief Complaint: Syncope Primary Care Provider: Jeremiah Foster MD History obtained from patient and records. Medical history significant for chronic systolic heart failure (EF 45%, TTE 2019), CAD status post stent, VT status post cardioversion status post ICD,, mild MR, hypertension, hyperlipidemia, sarcoidosis, DM2 insulin requiring, GERD, cervical cancer status post surgery, PTSD/anxiety/mood disorder, ongoing tobacco abuse, noncompliance as per records. Last confinement October 2018 for NSTEMI, VT. LUCIANO placed for LAD stenosis. VT noted during confinement status post cardioversion and subsequent ICD placement. Unable to follow-up with stem assembler since last visit August 2019 due to transportation issues. Patient roused from sleep 2 mornings ago by the loud noise coming from her bickering neighbors' house. Transient chest pain, palpitations attributed to anxiety from noise relieved by nitroglycerin. Patient spent the night at daughter's house last night to avoid stress from neighbors. Today, patient noted transient epigastric discomfort which she attributes to GERD. Yesterday, patient noted dizziness symptoms described as lightheadedness follo wed by a witnessed syncopal event with some head trauma. Some headache following head trauma. Patient denies chest pain, SOB. No witnessed seizures. Lowest SBP noted at the ER 80s. Medical History as above Surgical History : section, cervical colposcopy, TAO, ex lap Family History : Asthma, DM, heart disease Personal/Social history : 1/2 pack daily, no EtOH intake, currently unemployed, previous work as a [employer] Allergies Allergy/AdvReac Type Severity Reaction Status Date / Time Bactrim Allergy Severe "SEVERE GI Verified 04/29/17 15:45 UPSET" mold Allergy Severe SNEEZING, Verified 08/26/22 22:51 WATERY EYES, MAY CAUSE SOB-DEPENDS ON MOLD sulfamethoxazole Allergy Severe "SEVERE GI Verified 08/26/22 22:51 UPSET" trimethoprim Allergy Severe "SEVERE GI Verified 08/26/22 22:51 UPSET" adhesive Allergy Intermediate REDNESS, Verified 08/26/22 22:51 ITCHY, BLISTERS Aminoglycosides Allergy Intermediate ITCHY RASH Verified 08/26/22 22:51 bacitracin Allergy Intermediate ITCHY RASH Verified 08/26/22 22:51 neomycin Allergy Intermediate ITCHY RASH Verified 08/26/22 22:51 polymyxin B Allergy Intermediate ITCHY RASH Verified 08/26/22 22:51 Home Medications Medication Instructions Recorded Confirmed Type aspirin 81 mg chewable tablet 81 mg PO DAILY ##0 11/10/14 08/26/22 History citalopram 20 mg tablet 20 mg PO DAILY ##0 09/23/17 08/26/22 History montelukast 10 mg tablet 10 mg PO QAM asthma ##0 09/23/17 08/26/22 History (Singulair) albuterol sulfate 90 mcg/actuation 2 puff inhalation Q6H PRN asthma 08/07/18 History aerosol inhaler (Ventolin HFA) fenofibrate nanocrystallized 48 mg 48 mg PO DAILY 08/07/18 08/26/22 History tablet (Tricor) isosorbide mononitrate 60 mg 60 mg PO QAM 08/07/18 08/26/22 History tablet,extended release 24 hr mometasone-formoterol HFA 100 2 puff inhalation BID 08/07/18 08/26/22 History mcg-5 mcg/actuation aerosol inhaler nitroglycerin 0.4 mg sublingual 0.4 mg sublingual UD 10/11/18 08/26/22 History tablet gabapentin 300 mg capsule 600 mg PO QAM 12/18/18 08/26/22 History (Neurontin) insulin glargine 100 unit/mL (3 60 units subcut QAM 12/18/18 08/26/22 History mL) subcutaneous pen (Lantus Solostar U-100 Insulin) lisinopril 2.5 mg tablet (Zestril) 2.5 mg PO DAILY 12/18/18 08/26/22 History amlodipine 5 mg tablet (Norvasc) 5 mg PO DAILY 05/17/20 08/26/22 History empagliflozin 25 mg tablet 25 mg PO DAILY 05/17/20 08/26/22 History (Jardiance) gabapentin 300 mg capsule 300 mg PO QPM 05/17/20 08/26/22 History metoprolol succinate 50 mg 50 mg PO DAILY 05/17/20 08/26/22 History tablet,extended release 24 hr mirtazapine 15 mg tablet 7.5 mg PO HS 05/17/20 08/26/22 History omega-3 fatty acids 1,000 mg PO DAILY 05/17/20 08/26/22 History polyethylene glycol 3350 17 gram 17 g PO DAILY PRN Constipation 05/17/20 08/26/22 History oral powder packet (Miralax) rosuvastatin 40 mg tablet 40 mg PO DAILY 05/17/20 08/26/22 History diclofenac sodium 1 % topical gel 0 g topical QID PRN Pain 08/26/22 08/26/22 History dulaglutide 3 mg/0.5 mL 3 mg subcut WE 08/26/22 08/26/22 History subcutaneous pen injector (Trulicity) metformin 500 mg tablet,extended 1,000 mg PO BID 08/26/22 08/26/22 History release 24 hr ondansetron HCl 4 mg tablet 4 mg PO Q8 PRN Nausea 08/26/22 08/26/22 History ticagrelor 90 mg tablet (Brilinta) 90 mg PO AMHS 08/26/22 08/26/22 History vitamin B complex 1 tab PO DAILY 08/26/22 08/26/22 History Past Med/Surg History Medical History (Updated 08/27/22 @ 04:09 by Vahe Castaneda MD) Anxiety Asthma CAD (coronary artery disease) Chest pain CHF (congestive heart failure) Diabetes Diabetes type 2, uncontrolled Genital herpes HTN (hypertension) Ischemic cardiomyopathy Myocardial infarction Tobacco abuse Surgical History H/O exploratory laparotomy H/O: hysterectomy History of coronary artery stent placement Previous section S/P TAO-BSO Family History Other Cancer Diabetes Heart disease Hypertension Social History Smoking Status: Current every day smoker Tobacco Type: Cigarettes Second Hand Exposure: No; Do You Dip or Chew Tobacco: No; Tobacco Cessation Education Requested by Patient: No Hx Alcohol Use: No Hx Substance Use: No Preferred Language: Divehi Communication Ability: Effective Manager Of Software Required: No Beliefs That Will Affect Care: None marital status: Current Living Situation: Alone current occupational status: unemployed Other Information That Helps Us Care for You: No Feels Safe at Home: Yes Safety Concerns: Feels Safe At This Time Assistive Devices: None Review of Systems Review of Systems: As per HPI, all other systems reviewed and negative Physical Exam Physical Exam: GENERAL: Comfortable, slightly anxious, obese, looks older than stated age, no respiratory distress SKIN: Normal color, warm HEENT: [place] palpebral conjunctivae, no ptosis, dry buccal mucosa NECK : Supple, short neck, no tenderness CHEST : CTA, no tenderness HEART : RRR, no obvious murmurs ABDOMEN: Some distention, nontender EXTREMITIES : No LE swelling/tenderness, no other conspicuous deformities noted NEUROLOGIC : Coherent, no facial asymmetry, no other gross focality Results & Data Results & Data Vital Signs (Past 12 Hours) Vital Signs Temp Pulse Pulse Resp BP BP Pulse Ox 08/26/22 23:13 77 08/26/22 22:03 90 18 93 08/26/22 22:01 80 16 94 08/26/22 22:00 78 15 95 08/26/22 21:34 88 25 H 08/26/22 21:01 83 18 94 08/26/22 21:01 82/51 L 08/26/22 21:00 81 17 86 L 08/26/22 20:30 81 16 93 08/26/22 20:30 140/84 08/26/22 20:12 85 15 08/26/22 19:39 83 16 08/26/22 19:39 108/76 08/26/22 19:30 88 19 08/26/22 19:06 88 16 93 08/26/22 19:05 89 08/26/22 19:04 87 18 94 08/26/22 18:57 83 18 137/77 94 08/26/22 18:57 36.8 C 90 18 159/85 H 96 O2 Del Method 08/26/22 23:13 08/26/22 22:03 08/26/22 22:01 08/26/22 22:00 08/26/22 21:34 08/26/22 21:01 08/26/22 21:01 08/26/22 21:00 08/26/22 20:30 08/26/22 20:30 08/26/22 20:12 08/26/22 19:39 08/26/22 19:39 08/26/22 19:30 08/26/22 19:06 08/26/22 19:05 08/26/22 19:04 Room Air 08/26/22 18:57 Room Air 08/26/22 18:57 Room Air Laboratory Results Laboratory Results WBC 11.56 K/ul (4.8-10.8) H 08/26/22 19:17 RBC 5.22 M/uL (4.20-5.40) 08/26/22 19:17 Hgb 15.1 g/dl (12.0-16.0) 08/26/22 19:17 Hct 46.6 % (37.0-47.0) 08/26/22 19:17 MCV 89.3 fL (80.0-100.0) 08/26/22 19:17 MCH 28.9 pg (25.0-34.0) 08/26/22 19:17 MCHC 32.4 g/dL (32.0-36.0) 08/26/22 19:17 RDW Std Deviation 47.6 fL (36.4-46.3) H 08/26/22 19:17 RDW Coeff of [place] 14.7 % (11.5-14.5) H 08/26/22 19:17 Plt Count 321 K/uL (130-400) 08/26/22 19:17 MPV 9.1 fL (9.4-12.4) L 08/26/22 19:17 Immature Gran % (Auto) 0.5 % 08/26/22 19:17 Neut % (Auto) 78.0 % 08/26/22 19:17 Lymph % (Auto) 16.3 % 08/26/22 19:17 [place] % (Auto) 3.8 % 08/26/22 19:17 Eos % (Auto) 0.8 % 08/26/22 19:17 Baso % (Auto) 0.6 % 08/26/22 19:17 Neut # (Auto) 9.01 K/uL (1.40-6.50) H 08/26/22 19:17 Lymph # (Auto) 1.89 K/uL (1.2-3.4) 08/26/22 19:17 [place] # (Auto) 0.44 K/uL (0.11-0.59) 08/26/22 19:17 Eos # (Auto) 0.09 K/uL (0-0.50) 08/26/22 19:17 Baso # (Auto) 0.07 K/uL (0-0.2) 08/26/22 19:17 Immature Gran # (Auto) 0.06 K/uL (0.01-0.20) 08/26/22 19:17 Sodium 138 mmol/L (136-145) 08/26/22 19:17 Potassium 3.9 mmol/L (3.5-5.1) 08/26/22 19:17 Chloride 99 mmol/L (98-107) 08/26/22 19:17 Carbon Dioxide 25 mmol/L (21-32) 08/26/22 19:17 Anion Gap 14 (3-11) H 08/26/22 19:17 BUN 13 mg/dl (6-23) 08/26/22 19:17 Creatinine 0.76 mg/dl (0.6-1.2) 08/26/22 19:17 Est Cr Clr Drug Dosing 79.3 ml/min 08/26/22 19:17 Est GFR ( Amer) 100.2 ml/min 08/26/22 19:17 Est GFR (Non-Af Amer) 86.5 ml/min 08/26/22 19:17 BUN/Creatinine Ratio 17.1 (10-20) 08/26/22 19:17 Glucose 222 mg/dl (70-99(Fasting)) H 08/26/22 19:17 POC Glucose 210 mg/dl (70-99) H 08/26/22 19:17 Lactate 2.1 mmol/L (0.4-2.0) H* 08/26/22 23:46 Calcium 9.9 mg/dl (8.6-10.3) 08/26/22 19:17 Magnesium 1.7 mg/dl (1.7-2.4) 08/26/22 19:17 Total Bilirubin 0.4 mg/dl (0.2-1.0) 08/26/22 19:17 AST 14 U/L (13-39) 08/26/22 19:17 ALT 14 U/L (7-52) 08/26/22 19:17 Alkaline Phosphatase 79 U/L (34-104) 08/26/22 19:17 Troponin I High Sens 7.7 pg/ml (0-14) 08/26/22 21:23 Total Protein 7.7 gm/dl (6.0-8.3) 08/26/22 19:17 Albumin 4.4 gm/dl (3.4-5.0) 08/26/22 19:17 Globulin 3.3 gm/dl (2.5-4.0) 08/26/22 19:17 Albumin/Globulin Ratio 1.3 (0.9-2) 08/26/22 19:17 Lipase 43 U/L (11-82) 08/26/22 19:17 SARS-CoV-2, RNA, NAAT NEGATIVE (NEGATIVE) 08/26/22 19:07 Impressions Chest X-Ray 08/26/22 18:58 XR chest 1V portable HISTORY: 57 years-old Female Chest pain, nonspecific COMPARISON: 10/09/2021 TECHNIQUE: AP view of the chest FINDINGS: Cardiomediastinal and hilar silhouettes are within normal limits. Left subclavian pacer/AICD. No pneumothorax, pleural effusion or overt pulmonary edema. Mild linear atelectasis versus scarring of left lung base. Subtle ill-defined opacity in the right midlung. Degenerative changes of the shoulders and spine. IMPRESSION: 1. Cardiomegaly without pulmonary edema. 2. Bibasilar atelectasis. 3. Ill-defined right mid lung opacity is favored to represent summation density. Developing airspace disease could appear similarly. ACT 112: Negative or not required by law. The above report was generated using voice recognition software. It may contain grammatical, syntax or spelling errors. Electronically signed by: Derrek Johsnon M.D. 08/26/2022 8:[address] 08/26/22 18:59 CT cervical spine wo con CT DOSE: 982.91 mGy.cm CLINICAL HISTORY: 57 years-old Female with fall. Acute neck pain status post fall COMPARISON: Head CT of same day TECHNIQUE: Multiple axial CT images of the cervical spine were obtained without contrast. A dose lowering technique was utilized adhering to the principles of ALARA. FINDINGS: Straightening of the normal cervical lordosis. Demineralized appearance of the bones. No acute cervical spine fracture or subluxation identified. The cervical soft tissues appear unremarkable. Partially imaged left subclavian pacer leads. Hypodense 1.1 cm right-sided thyroid nodule. The visualized lung apices appear clear. IMPRESSION: No acute cervical spine fracture or subluxation. ACT 112: Negative or not required by law. The above report was generated using voice recognition software. It may contain grammatical, syntax or spelling errors. Electronically signed by: Derrek Johnson M.D. 08/26/2022 8:[address] 08/26/22 18:59 CT head/brain wo con CLINICAL HISTORY: 57 years-old Female with fall. Acute head trauma status post fall TECHNIQUE: Multiple axial CT images of the head were obtained without contrast. A dose lowering technique was utilized adhering to the principles of ALARA. COMPARISON: CT cervical spine of same day FINDINGS: No acute intracranial hemorrhage, midline shift, intracranial mass, hydrocephalus, territorial ischemia or abnormal extra-axial collection. Development of ill-defined white matter hypodensities in the cerebral hemispheres with subcentimeter hypodense focus in the right lentiform nucleus. Mild involutional changes. The calvarium is intact. The paranasal sinuses, mastoid air cells, and middle ear cavities are clear. IMPRESSION: 1. No acute intracranial abnormality or calvarial fracture. 2. Involutional changes with chronic microvascular ischemic disease, progressed from the 2006 comparison. 3. Subcentimeter age-indeterminate lacunar infarct of the right lentiform nucleus. ACT 112: Negative or not required by law. The above report was generated using voice recognition software. It may contain grammatical, syntax or spelling errors. Electronically signed by: Derrek Johnson M.D. 08/26/2022 8:18 PM Diagnostic Findings EKG as per my interpretation :Rate 90, NSR, LAD, LAFB, LVH, inferior infarct, septal infarct, ST depression lateral leads
[2022-08-27] MEDS ORDERED: POTASSIUM CHLORIDE 10 MEQ TABCR PO STA (00:13)
[2022-08-27] MEDS: NICOTINE 14 MG/24 HR PATCH TD SCH (01:10)
[2022-08-27] MEDS: MAGNESIUM SULFATE / D5W 1 GM/100 ML BAG IV SCH ×2 (01:10→02:44)
[2022-08-27] MEDS ORDERED: GLUCAGON FOR INJ 1 MG VIAL SQ PRN (01:45)
[2022-08-27] MEDS ORDERED: CARBOHYDRATES FOR HYPOGLYCEMIA PO PRN (01:45)
[2022-08-27] MEDS ORDERED: GLUCOSE 10 TAB/TUBE PO PRN (01:45)
[2022-08-27] MEDS ORDERED: GLUCOSE 40% GEL 15 GM TUBE PO PRN (01:45)
[2022-08-27] MEDS ORDERED: ACETAMINOPHEN 325 MG TAB PO PRN (01:45)
[2022-08-27] MEDS ORDERED: LORazepam 0.5 MG TAB PO PRN (01:45)
[2022-08-27] MEDS ORDERED: PROMETHAZINE HCL 12.5 MG in SODIUM CHLORIDE 0.9% 50 ML IV PRN (01:45)
[2022-08-27] MEDS ORDERED: DEXTROSE 50% 50 ML SYRINGE IV PRN (01:45)
[2022-08-27] MEDS ORDERED: oxyCODONE HCL IR 5 MG TAB (IMMEDIATE RELEASE) PO PRN (01:45)
[2022-08-27] MEDS: INSULIN ASPART PER UNIT CHARGE SC SCH ×5 (02:05→20:56)
[2022-08-27] MEDS: MIRTAZAPINE TAB 15 MG TAB PO SCH ×2 (02:39→21:13)
[2022-08-27] MEDS: TICAGRELOR 90 MG TAB PO SCH ×3 (02:39→21:13)
[2022-08-27] MEDS: GABAPENTIN 300 MG CAP PO SCH ×3 (02:39→21:13)
[2022-08-27] MEDS: FAMOTIDINE 10 MG TABLET PO SCH (02:39)
[2022-08-27 04:51] LABS: Basophils # (auto) 0.06 K/uL (0-0.2); Basophils % (auto) 0.7 %; Eosinophils # (auto) 0.12 K/uL (0-0.50); Eosinophils % (auto) 1.3 %; Hematocrit (blood only) 41.6 % (37.0-47.0); Hemoglobin 13.5 g/dl (12.0-16.0); Immature Granulocytes # (auto) 0.03 K/uL (0.01-0.20); Immature Granulocytes % (auto) 0.3 %; Lymphocytes # (auto) 3.66 K/uL (1.2-3.4); Lymphocytes % (auto) 40.6 %; Mean Corpuscular Hemoglobin 28.7 pg (25.0-34.0); Mean Corpuscular Hgb Conc 32.5 g/dL (32.0-36.0); Mean Corpuscular Volume 88.3 fL (80.0-100.0); Mean Platelet Volume 9.2 fL (9.4-12.4); Monocytes # (auto) 0.47 K/uL (0.11-0.59); Monocytes % (auto) 5.2 %; Neutrophils # (auto) 4.68 K/uL (1.40-6.50); Neutrophils % (auto) 51.9 %; Platelet Count 300 K/uL (130-400); RDW Coefficient of Variation 14.7 % (11.5-14.5); RDW Standard Deviation 47.7 fL (36.4-46.3); Red Blood Count 4.71 M/uL (4.20-5.40); White Blood Count 9.02 K/ul (4.8-10.8)
[2022-08-27 05:04] LABS: Anion Gap 8 (3-11); Carbon Dioxide 25 mmol/L (21-32); Chloride 104 mmol/L (98-107); Potassium 3.4 mmol/L (3.5-5.1); Sodium 137 mmol/L (136-145)
[2022-08-27 05:10] LABS: BUN Creatinine Ratio 21.3 (10-20); Blood Urea Nitrogen 10 mg/dl (6-23); Creatinine Clr Calc Pharmacy 128.3 ml/min; Est GFR (African American) 126.2 ml/min; Est GFR (Non-African American) 108.9 ml/min; Glucose 116 mg/dl (70-99(Fasting))
[2022-08-27 05:19] LABS: Chol HDL Ratio 9.4 (0-5); Cholesterol 290 mg/dl (0-200); HDL Cholesterol 31 mg/dl; Triglycerides 744 mg/dl (0-150)
[2022-08-27 08:18] LABS: Estimated Average Glucose 381 mg/dl; Hemoglobin A1C 14.9 % (4.5-5.6)
[2022-08-27] MEDS ORDERED: POTASSIUM CHLORIDE CRTAB 20 MEQ TABCR PO STA (08:26)
[2022-08-27] MEDS: FLUTICASONE/VILANTEROL 100/25MCG 14 PUFFS/INHALER INH SCH (08:47)
[2022-08-27] MEDS: FENOFIBRATE NANOCRYSTALLIZED 48 MG TABLET PO SCH (08:47)
[2022-08-27] MEDS: ROSUVASTATIN CALCIUM 20 MG TAB PO SCH (08:47)
[2022-08-27] MEDS: ASPIRIN 81 MG CHEW PO SCH (08:47)
[2022-08-27] MEDS: VITAMIN B COMPLEX TAB PO SCH (08:47)
[2022-08-27] MEDS: CITALOPRAM 20 MG TAB PO SCH (08:47)
[2022-08-27] MEDS: MONTELUKAST SODIUM 10 MG TABLET PO SCH (08:48)
[2022-08-27] MEDS: ENOXAPARIN INJ 40 MG/0.4 ML SYR SQ SCH (08:49)
[2022-08-27] MEDS: LANTUS PER UNIT CHARGE SQ SCH (08:55)
[2022-08-27] MEDS ORDERED: METOPROLOL SUCC 25MG EXT REL TAB PO SCH (09:00)
--- NOTE | 2022-08-27 09:02 | Ultrasound Report ---
BILATERAL CAROTID DOPPLER STUDY HISTORY: Stroke symptoms. COMPARISON: None. TECHNIQUE: Real-time, grayscale, and color Doppler sonography of the carotid arteries was performed. Imaging reviewed in the transverse and longitudinal planes. All measurements were calculated based on NASCET criteria. FINDINGS: Antegrade flow is seen in the bilateral vertebral arteries. Mild to moderate calcified plaque within the bilateral carotid bifurcations. The peak systolic velocity within the right ICA is 92 cm/s. The right systolic ratio is 1.2. The peak systolic velocity within the left ICA is 97 cm/s. The left systolic ratio is 1.4. Slightly elevated peak soft velocity within the right external carotid artery of 142 mm/s consistent with an area of mild stenosis. IMPRESSION: No hemodynamically significant stenosis seen within the bilateral common or internal carotid arteries . ACT 112: Negative or not required by law. Electronically signed by: Ziggy Huffman M.D. 08/27/2022 9:01 AM
[2022-08-27 09:08] LABS: Magnesium 2.3 mg/dl (1.7-2.4); Phosphorus 4.1 mg/dl (2.5-4.9)
--- NOTE | 2022-08-27 11:02 | Cardiology Consultation ---
Date of Consultation August 27, 2022 Assessment & Plan (1) Hypotension: (2) Ischemic cardiomyopathy: (3) V-tach: (4) CHF (congestive heart failure): (5) Tobacco abuse: (6) CAD (coronary artery disease): Plan 1. Admission following a near syncopal episode. Suspect hypoglycemia versus hypotension 2. Chronic coronary artery disease, severe ischemic cardiomyopathy. EF 25 to 30% (September 2018) 3. Inferior ST segment elevation myocardial infarction, status post PTCA and stenting of the RCA 4. Cardiac catheterization last in September 2018 ([facility]) with severe multivessel CAD (chronic RCA occlusion, high-grade LAD disease into the D1/D2 s/p PCI of LAD and angioplasty of the diagonal). 5. NYHA Class III 6. Sustained VT s/p cardioversion, transient use of amiodarone. Amiodarone discontinued by patient in March 2019 (corneal deposits). 7. October 17, 2018 dual chamber ICD implantation. 8. Hypertension 9. Dyslipidemia. LDL goal less than 70 mg/dL. 10. Chronic tobacco abuse, COPD 11. Type II diabetes mellitus 12. Depression, PTSD, anxiety. 13. Noncompliance RECOMMENDATIONS/PLAN: 1. Increase/resume higher dose metoprolol succinate, 50 mg/day 2. Discontinue amlodipine. 3. Decrease Imdur to 30 mg/day 4. ? Resume lisinopril versus add Entresto pending resting echocardiography r esults. 5. Continue Jardiance. 6. Continue dual antiplatelet therapy 7. Continue rosuvastatin 40 mg/day and fenofibrate. 8. Tobacco cessation 9. Medical and follow-up compliance discussed. Supervising Physician Co-Signing Physician Notes 57-year-old female admitted with near syncope and possible hypoglycemia. Denies chest pain, unusual shortness of breath, orthopnea, or PND. Complex cardiovascular history noted above. Currently resting comfortably. Telemetry reveals sinus rhythm in the 60-70s with occasional PVCs. Admits to intermittent noncompliance with cardiovascular medications for weeks at a time. PE: VSS. Gen: NAD, AAOx3. Heart: Regular rhythm, normal S1-S2. 2/6 low pitch mid peaking systolic ejection murmur heard best at the base. Lungs: Clear bilateral, no rales, rhonchi, wheeze. Extremities: No edema. A/P: Agree with above PA-C history, physical exam, assessment plan. Amlodipine will be discontinued to allow for titration of beta-grant therapy. Resume RIOS inhibitor for consideration of Entresto in the outpatient setting. Preliminary review of bedside 2D transthoracic echocardiogram demonstrates mildly reduced LV systolic function. Smoking cessation advised. Continue telemetry monitoring at this time. Thank you for allow me to participate in the care of your patient. History of Present Illness Reason for Consultation: "Hypotension, CHF, follow-up" Requesting Physician: Tonya Attending Physician: Marquis History of Present Illness Ms. Sandy Wolfe is a 57-year-old female who is being seen at the request of Dr. Castaneda. Reasons for consultation include hypotension, CHF, follow-up. The patient was last seen in the cardiology clinic on August 18, 2019. Yesterday, August 26, 2022, Mrs. Wolfe was at her daughter's house. She was talking to a friend on the telephone regarding an issue with [facility] and was creating a noise disturbance. She notes becomign upset and angry. While standing on the porch smoking a cigarette the patient began to experience lightheadedness and gradually went to the ground. She seems to recall the entire event. She does not believe there was overt loss of consciousness/syncope. She notes hearing her daughter say mom when she went down. The daughter's boyfriend Joseph then helped her up. She notes sitting on a stool for little while and feeling nauseous and vomiting. She notes experiencing symptoms like this in the past, attributed to hypoglycemia. Her daughter gave her a Coca-Cola to drink with reported improvement. No overt seizure type activity noted. No tongue biting. No bowel or bladder incontinence. Patient was taken to the [facility] ER. Blood pressure was initially 159/85 then 137/77 at 18:57. Hypotension with a BP of 82/51 noted at 21:01. Patient admitted due to hypotension, possible hypovolemia, rule out malignant arrhythmia. A [facility] alert was received for this patient this morning due to an episode of ventricular tachycardia that occurred on August 25, 2022 at 02:57. Personal review of the report demonstrates appropriate device function, 6.5 years remaining longevity. 26 episodes of nonsustained ventricular tachycardia and 5 episodes of ventricular tachycardia observed since August 18, 2019. The most recent episode occurred on August 25, 2022 at 02: 57 lasting 9 seconds in duration. This episode was successfully treated with antitachycardia pacing. Shock was not needed. The last episode of nonsustained ventricular tachycardia occurred on August 07, 2022. No VT or VF noted on the date of the event leading to this hospitalization. Time in AT/AF: < 0.1%. -VS 97.9%. AP-VS 2.1%. -AERIAL PHOTOGRAPHER < 0.1%. Total AERIAL PHOTOGRAPHER < 0.1%. No chest pain. No palpitations. Stable shortness of breath. Chronic cough. No orthopnea, PND, or peripheral edema. No current subjective fevers or chills. Past Medical and Surgical History: Chronic coronary artery disease, severe ischemic cardiomyopathy History of prior inferior ST segment elevation myocardial infarction, status post PTCA and stenting of the RCA Diagnostic cardiac catheterization last performed in September 2018 ([facility]) demonstrated severe multivessel coronary artery disease including the known chronic RCA occlusion, high-grade LAD disease into the D1/D2, status post PCI of LAD and angioplasty of the diagonal branch. NYHA Class III History of sustained ventricular arrhythmias status post cardioversion, initiation of amiodarone, and October 17, 2018 dual chamber ICD implantation by Dr. Dalal. Amiodarone discontinued by patient in March 2019 due to corneal deposits. Hypertension Dyslipidemia Chronic tobacco abuse, COPD Chart history of sarcoidosis Type II diabetes mellitus, uncontrolled Major depression, PTSD, anxiety. Cervical cancer Noncompliance Hysterectomy Family History: + For CAD in mother. Social History: Everyday smoker. No significant alcohol. No illegal drug use. . Three children. Disabled. Allergies Allergy/AdvReac Type Severity Reaction Status Date / Time Bactrim Allergy Severe "SEVERE GI Verified 04/29/17 15:45 UPSET" mold Allergy Severe SNEEZING, Verified 08/26/22 22:51 WATERY EYES, MAY CAUSE SOB-DEPENDS ON MOLD sulfamethoxazole Allergy Severe "SEVERE GI Verified 08/26/22 22:51 UPSET" trimethoprim Allergy Severe "SEVERE GI Verified 08/26/22 22:51 UPSET" adhesive Allergy Intermediate REDNESS, Verified 08/26/22 22:51 ITCHY, BLISTERS Aminoglycosides Allergy Intermediate ITCHY RASH Verified 08/26/22 22:51 bacitracin Allergy Intermediate ITCHY RASH Verified 08/26/22 22:51 neomycin Allergy Intermediate ITCHY RASH Verified 08/26/22 22:51 polymyxin B Allergy Intermediate ITCHY RASH Verified 08/26/22 22:51 Home Medications Medication Instructions Recorded Confirmed Type aspirin 81 mg chewable tablet 81 mg PO DAILY ##0 11/10/14 08/26/22 History citalopram 20 mg tablet 20 mg PO DAILY ##0 09/23/17 08/26/22 History montelukast 10 mg tablet 10 mg PO QAM asthma ##0 09/23/17 08/26/22 History (Singulair) albuterol sulfate 90 mcg/actuation 2 puff inhalation Q6H PRN asthma 08/07/18 08/26/22 History aerosol inhaler (Ventolin HFA) fenofibrate nanocrystallized 48 mg 48 mg PO DAILY 08/07/18 08/26/22 History tablet (Tricor) mometasone-formoterol HFA 100 2 puff inhalation BID 08/07/18 08/26/22 History mcg-5 mcg/actuation aerosol inhaler nitroglycerin 0.4 mg sublingual 0.4 mg sublingual UD 10/11/18 08/26/22 History tablet gabapentin 300 mg capsule 600 mg PO QAM 12/18/18 08/26/22 History (Neurontin) insulin glargine 100 unit/mL (3 60 units subcut QAM 12/18/18 08/26/22 History mL) subcutaneous pen (Lantus Solostar U-100 Insulin) lisinopril 2.5 mg tablet (Zestril) 2.5 mg PO DAILY 12/18/18 08/26/22 History empagliflozin 25 mg tablet 25 mg PO DAILY 05/17/20 08/26/22 History (Jardiance) gabapentin 300 mg capsule 300 mg PO QPM 05/17/20 08/26/22 History mirtazapine 15 mg tablet 7.5 mg PO HS 05/17/20 08/26/22 History omega-3 fatty acids 1,000 mg PO DAILY 05/17/20 08/26/22 History polyethylene glycol 3350 17 gram 17 g PO DAILY PRN Constipation 05/17/20 08/26/22 History oral powder packet (Miralax) rosuvastatin 40 mg tablet 40 mg PO DAILY 05/17/20 08/26/22 History diclofenac sodium 1 % topical gel 0 g topical QID PRN Pain 08/26/22 08/26/22 History metformin 500 mg tablet,extended 1,000 mg PO BID 08/26/22 08/26/22 History release 24 hr ondansetron HCl 4 mg tablet 4 mg PO Q8 PRN Nausea 08/26/22 08/26/22 History ticagrelor 90 mg tablet (Brilinta) 90 mg PO AMHS 08/26/22 08/26/22 History vitamin B complex 1 tab PO DAILY 08/26/22 08/26/22 History blood sugar diagnostic (OneTouch #100 ea 08/28/22 Rx Ultra Test strips) blood-glucose meter (OneTouch #1 ea 08/28/22 Rx Ultra2 Meter) isosorbide mononitrate 30 mg 30 mg PO QAM #30 tabs 08/28/22 Rx tablet,extended release 24 hr lancets 33 gauge (OneTouch Delica #100 ea 08/28/22 Rx Plus Lancet) metoprolol succinate 50 mg 75 mg PO DAILY #60 tabs 08/28/22 Rx tablet,extended release 24 hr Patient History Medical History (Updated 08/28/22 @ 12:58 by Lilliana Cho MD) Anxiety Asthma CAD (coronary artery disease) Chest pain CHF (congestive heart failure) Diabetes Diabetes type 2, uncontrolled Genital herpes HTN (hypertension) Ischemic cardiomyopathy Myocardial infarction Tobacco abuse Surgical History H/O exploratory laparotomy H/O: hysterectomy History of coronary artery stent placement Previous section S/P TAO-BSO Family History Other Cancer Diabetes Heart disease Hypertension Social History Smoking Status: Current every day smoker Tobacco Type: Cigarettes Second Hand Exposure: No; Do You Dip or Chew Tobacco: No; Tobacco Cessation Education Requested by Patient: No Hx Alcohol Use: No Hx Substance Use: No Preferred Language: Niuean Communication Ability: Effective Vehicle Window Tinter Required: No Beliefs That Will Affect Care: None marital status: Current Living Situation: Alone current occupational status: unemployed Other Information That Helps Us Care for You: No Feels Safe at Home: Yes Safety Concerns: Feels Safe At This Time Assistive Devices: None Review of Systems Review of Systems: Complete Review of Systems is as stated above, negative, or noncontributory. Physical Exam Physical Exam: General: A&Ox3. NAD. HENT: Normocephalic. Atraumatic. Eyes: PER. Conjunctiva pink, sclera clear. Neck: Carotid bruits. No JVD. Neck veins are flat. Heart: RRR. Grade II/ systolic murmur. No diastolic murmur. No rub. Lungs: Diminished. Decreased. No wheeze. Abdomen: +BS. Soft. Nontender. No masses or organomegaly. Extremities: No clubbing, cyanosis, or edema. Limited neurological examination is without focal deficits. Pulses: radial=2/4, posterior tibial=1/4. Results & Data Vital Signs (Past 12 Hours) Vital Signs Temp Pulse Pulse Resp BP Pulse Ox O2 Del Method 08/27/22 08:00 36.7 C 70 18 142/69 H 97 Room Air 08/27/22 05:59 70 08/27/22 01:56 72 08/27/22 01:50 36.5 C 78 20 146/90 H 94 Room Air 08/26/22 23:13 77 Laboratory Results Cardiac Enzymes 08/26/22 08/26/22 Range/Units 19:17 21:23 AST 14 (13-39) U/L Troponin I High Sens 9.4 7.7 (0-14) pg/ml Lipids 08/27/22 Range/Units 04:13 Triglycerides 744 H (0-150) mg/dl Cholesterol 290 H (0-200) mg/dl HDL Cholesterol 31 mg/dl Cholesterol/HDL Ratio 9.4 H (0-5) CBC 08/26/22 08/27/22 Range/Units 19:17 04:13 WBC 11.56 H 9.02 (4.8-10.8) K/ul RBC 5.22 4.71 (4.20-5.40) M/uL Hgb 15.1 13.5 (12.0-16.0) g/dl Hct 46.6 41.6 (37.0-47.0) % Plt Count 321 300 (130-400) K/uL Neut # (Auto) 9.01 H 4.68 (1.40-6.50) K/uL Lymph # (Auto) 1.89 3.66 H (1.2-3.4) K/uL [place] # (Auto) 0.44 0.47 (0.11-0.59) K/uL Eos # (Auto) 0.09 0.12 (0-0.50) K/uL Baso # (Auto) 0.07 0.06 (0-0.2) K/uL Comprehensive Metabolic Panel 08/26/22 08/27/22 Range/Units 19:17 04:13 Sodium 138 137 (136-145) mmol/L Potassium 3.9 3.4 L (3.5-5.1) mmol/L Chloride 99 104 (98-107) mmol/L Carbon Dioxide 25 25 (21-32) mmol/L BUN 13 10 (6-23) mg/dl Creatinine 0.76 0.47 L (0.6-1.2) mg/dl Glucose 222 H 116 H (70-99(Fasting)) mg/dl Calcium 9.9 9.0 (8.6-10.3) mg/dl AST 14 (13-39) U/L ALT 14 (7-52) U/L Alkaline Phosphatase 79 (34-104) U/L Total Protein 7.7 (6.0-8.3) gm/dl Albumin 4.4 (3.4-5.0) gm/dl Intake and Output 08/26/22 08/27/22 08/27/22 22:59 06:59 14:59 Intake Total 500 / 1431.666 931.666 / 1431.666 Balance 500 / 1431.666 931.666 / 1431.666 Intake: IV 500 / 1311.666 811.666 / 1311.666 Lactated Ringer's 1,000 ml @ 633.333 / 633.333 200 mls/hr IV .Q5H ONE Rx#: [id number] Magnesium Sulfate / D5w 1 gm In 178.333 / 178.333 100 ml @ 50 mls/hr IV Q2H ARTIS Rx#:[id number] Sodium Chloride 0.9% 1000ML 500 500 / 500 ml @ 999 mls/hr IV .Q31M ONE Rx#:[id number] Oral 120 / 120 Other: # Unmeasured Voids 1 Weight 77 kg 77.111 kg Weight Measurement Method Built in [facility] Built in [facility] (4) CHF (congestive heart failure) Heart failure chronicity: acute Heart failure type: unspecified Qualified Code(s): I50.9 - Heart failure, unspecified (6) CAD (coronary artery disease) Associated angina: with stable angina Coronary Disease-Associated Artery/Lesion type: [place] artery [place] vs. transplanted heart: [place] heart Qualified Code(s): I25.118 - Atherosclerotic heart disease of [place] coronary artery with other forms of angina pectoris
--- NOTE | 2022-08-27 11:32 | Hospitalist Progress Note ---
Date of Service August 27, 2022 Assessment & Plan (1) Hypotension: (2) Syncope: Plan: History of VT s/p cardioversion, autonomic neuropathy, poorly controlled DM, chronic systolic heart failure, CAD s/p stent, CVA, sarcoidosis, cervical cancer s/p surgery, PTSD, anxiety, mood disorder, smoker who presents with syncopal episode Was noted to be hypotensive on presentation Home BB was reduced on admission and home antihypertensives are currently held Will follow up Cardiology evaluation and ICD interrogation Will follow up TTE Replete hypokalemia and monitor HbA1c is 14.9 Patient reports that she was off all her antidiabetics a month ago for about a month due to 'mix up with her meds' She stated she is currently taking them but has lost her glucometer Provided DM education and counseled on need for adherence Will get DM educator consult Will need a new glucometer on discharge Reports she had fallen at home and has walker Will get PT/OT eval Will follow up outstanding workup DVT ppx - lovenox sq I spent a total of 45 minutes coordinating, documenting and providing care for this patient excluding time spent in performance of separately billed services Admission and Anticipated Discharge Date Admission Date: August 27, 2022 Subjective Patient seen and examined Denied any complaints at this time Reports intermittent palpitation, last episode was 2 mornings ago. Denied any palpitation at time of syncopal episode yesterday Denied chest pain, SOB, leg swelling Denied diarrhea, vomiting Physical Exam Constitutional: + well hydrated; no acute distress Eyes: PERRL, conjunctivae normal, anicteric sclerae ENMT: external ear and nose normal, oropharynx normal Respiratory: normal respiratory effort, lungs clear to auscultation Cardiovascular: Rate/Rhythm: regular rate and regular rhythm S1 S2 Gastrointestinal (Abdomen): normal bowel sounds, soft, nontender, no hepatosplenomegaly Musculoskeletal: No pedal edema Neurologic: PERRL, EOMI, accommodation nl, no face palsy, no dysarthria Psychiatric: A+Ox3, euthymic affect Results & Data Results & Data Vital Signs (Past 12 Hours) Vital Signs Temp Pulse Pulse Resp BP Pulse Ox O2 Del Method 08/27/22 08:00 36.7 C 70 18 142/69 H 97 Room Air 08/27/22 05:59 70 08/27/22 01:56 72 08/27/22 01:50 36.5 C 78 20 146/90 H 94 Room Air Laboratory Results Abnormal lab results 08/26/22 08/26/22 08/26/22 Range/Units 19:17 19:17 19:17 WBC 11.56 H (4.8-10.8) K/ul RDW Std Deviation 47.6 H (36.4-46.3) fL RDW Coeff of [place] 14.7 H (11.5-14.5) % MPV 9.1 L (9.4-12.4) fL Neut # (Auto) 9.01 H (1.40-6.50) K/uL Lymph # (Auto) (1.2-3.4) K/uL Potassium (3.5-5.1) mmol/L Anion Gap 14 H (3-11) Creatinine (0.6-1.2) mg/dl BUN/Creatinine Ratio (10-20) Glucose 222 H (70-99(Fasting)) mg/dl POC Glucose 210 H (70-99) mg/dl Hemoglobin A1c (4.5-5.6) % Lactate (0.4-2.0) mmol/L Triglycerides (0-150) mg/dl Cholesterol (0-200) mg/dl Cholesterol/HDL Ratio (0-5) 08/26/22 08/26/22 08/27/22 Range/Units 19:17 23:46 02:02 WBC (4.8-10.8) K/ul RDW Std Deviation (36.4-46.3) fL RDW Coeff of [place] (11.5-14.5) % MPV (9.4-12.4) fL Neut # (Auto) (1.40-6.50) K/uL Lymph # (Auto) (1.2-3.4) K/uL Potassium (3.5-5.1) mmol/L Anion Gap (3-11) Creatinine (0.6-1.2) mg/dl BUN/Creatinine Ratio (10-20) Glucose (70-99(Fasting)) mg/dl POC Glucose 125 H (70-99) mg/dl Hemoglobin A1c 14.9 H (4.5-5.6) % Lactate 2.1 H* (0.4-2.0) mmol/L Triglycerides (0-150) mg/dl Cholesterol (0-200) mg/dl Cholesterol/HDL Ratio (0-5) 08/27/22 08/27/22 08/27/22 Range/Units 04:13 04:13 07:18 WBC (4.8-10.8) K/ul RDW Std Deviation 47.7 H (36.4-46.3) fL RDW Coeff of [place] 14.7 H (11.5-14.5) % MPV 9.2 L (9.4-12.4) fL Neut # (Auto) (1.40-6.50) K/uL Lymph # (Auto) 3.66 H (1.2-3.4) K/uL Potassium 3.4 L (3.5-5.1) mmol/L Anion Gap (3-11) Creatinine 0.47 L (0.6-1.2) mg/dl BUN/Creatinine Ratio 21.3 H (10-20) Glucose 116 H (70-99(Fasting)) mg/dl POC Glucose 116 H (70-99) mg/dl Hemoglobin A1c (4.5-5.6) % Lactate (0.4-2.0) mmol/L Triglycerides 744 H (0-150) mg/dl Cholesterol 290 H (0-200) mg/dl Cholesterol/HDL Ratio 9.4 H (0-5) 08/27/22 Range/Units 11:08 WBC (4.8-10.8) K/ul RDW Std Deviation (36.4-46.3) fL RDW Coeff of [place] (11.5-14.5) % MPV (9.4-12.4) fL Neut # (Auto) (1.40-6.50) K/uL Lymph # (Auto) (1.2-3.4) K/uL Potassium (3.5-5.1) mmol/L Anion Gap (3-11) Creatinine (0.6-1.2) mg/dl BUN/Creatinine Ratio (10-20) Glucose (70-99(Fasting)) mg/dl POC Glucose 121 H (70-99) mg/dl Hemoglobin A1c (4.5-5.6) % Lactate (0.4-2.0) mmol/L Triglycerides (0-150) mg/dl Cholesterol (0-200) mg/dl Cholesterol/HDL Ratio (0-5)
[2022-08-27] MEDS: METOPROLOL SUCC 50MG EXT REL TAB PO SCH (13:33)
--- NOTE | 2022-08-28 05:15 | Electrocardiogram Report ---
Test Reason : Blood Pressure : / mmHG Vent. Rate : 092 BPM Atrial Rate : 092 BPM P-R Int : 158 ms QRS Dur : 108 ms QT Int : 400 ms P-R-T Axes : 034 -14 087 degrees QTc Int : 494 ms Normal sinus rhythm Moderate voltage criteria for LVH, may be normal variant Inferior infarct , age undetermined Anterior infarct Nonspecific ST and T wave abnormality Abnormal ECG When compared with ECG of 18-DEC-2018 19:20, Sinus rhythm has replaced Electronic atrial pacemaker Vent. rate has increased BY 32 BPM Anterior infarct is now Present Confirmed by Yosvany Rubalcava ([id number]) on 08/28/2022 5:14:56 AM Referred By: REFERRED SELF Confirmed By:Yosvany Rubalcava
[2022-08-28 07:08] LABS: Hematocrit (blood only) 42.6 % (37.0-47.0); Hemoglobin 14.1 g/dl (12.0-16.0); Mean Corpuscular Hemoglobin 28.8 pg (25.0-34.0); Mean Corpuscular Hgb Conc 33.1 g/dL (32.0-36.0); Mean Corpuscular Volume 87.1 fL (80.0-100.0); Mean Platelet Volume 8.9 fL (9.4-12.4); Platelet Count 288 K/uL (130-400); RDW Coefficient of Variation 14.7 % (11.5-14.5); RDW Standard Deviation 47.2 fL (36.4-46.3); Red Blood Count 4.89 M/uL (4.20-5.40)
[2022-08-28 07:28] LABS: BUN Creatinine Ratio 29.3 (10-20); Calcium 8.8 mg/dl (8.6-10.3); Creatinine Clr Calc Pharmacy 101.3 ml/min; Est GFR (African American) 117.8 ml/min; Est GFR (Non-African American) 101.6 ml/min
[2022-08-28 07:57] VITALS: O2SAT 93
[2022-08-28] MEDS: GABAPENTIN 300 MG CAP PO SCH (08:29)
[2022-08-28] MEDS: TICAGRELOR 90 MG TAB PO SCH (08:29)
[2022-08-28] MEDS: CITALOPRAM 20 MG TAB PO SCH (08:30)
[2022-08-28] MEDS: FAMOTIDINE 10 MG TABLET PO SCH (08:30)
[2022-08-28] MEDS: MONTELUKAST SODIUM 10 MG TABLET PO SCH (08:30)
[2022-08-28] MEDS: VITAMIN B COMPLEX TAB PO SCH (08:30)
[2022-08-28] MEDS: METOPROLOL SUCC 50MG EXT REL TAB PO SCH (08:30)
[2022-08-28] MEDS: ASPIRIN 81 MG CHEW PO SCH (08:30)
[2022-08-28] MEDS: FENOFIBRATE NANOCRYSTALLIZED 48 MG TABLET PO SCH (08:30)
[2022-08-28] MEDS: ROSUVASTATIN CALCIUM 20 MG TAB PO SCH (08:30)
[2022-08-28] MEDS: NICOTINE 14 MG/24 HR PATCH TD SCH (08:30)
[2022-08-28] MEDS: FLUTICASONE/VILANTEROL 100/25MCG 14 PUFFS/INHALER INH SCH (08:31)
[2022-08-28] MEDS: ENOXAPARIN INJ 40 MG/0.4 ML SYR SQ SCH (08:31)
[2022-08-28] MEDS: INSULIN ASPART PER UNIT CHARGE SC SCH ×2 (08:39→12:33)
[2022-08-28] MEDS: LANTUS PER UNIT CHARGE SQ SCH (08:40)
--- NOTE | 2022-08-28 08:54 | Cardiology Progress Note ---
Date of Service August 28, 2022 Assessment & Plan (1) Hypotension: (2) Ischemic cardiomyopathy: (3) V-tach: (4) CHF (congestive heart failure): (5) Tobacco abuse: (6) CAD (coronary artery disease): Plan 1. Admission following a near syncopal episode. Suspect hypoglycemia versus h ypotension 2. Chronic coronary artery disease, severe ischemic cardiomyopathy. EF 25 to 30% (September 2018), 45 to 50% (August 27, 2022) 3. Inferior ST segment elevation myocardial infarction, status post PTCA and stenting of the RCA 4. Cardiac catheterization last in September 2018 ([facility]) with severe multivessel CAD (chronic RCA occlusion, high-grade LAD disease into the D1/D2 s/p PCI of LAD and angioplasty of the diagonal). 5. NYHA Class III 6. Sustained VT s/p cardioversion, prior treatment with amiodarone discontinued by patient in March 2019 (corneal deposits). 7. October 17, 2018 dual chamber ICD implantation. 8. Hypertension 9. Dyslipidemia. LDL goal less than 70 mg/dL. 10. Chronic tobacco abuse, COPD 11. Type II diabetes mellitus 12. Depression, PTSD, anxiety. 13. Noncompliance RECOMMENDATIONS/PLAN: 1. Increase metoprolol succinate to 75 mg/day. 2. Amlodipine discontinued this admission. 3. Isosorbide decreased to 30 mg/day this admission. 4. Tobacco cessation 5. Future outpatient considerations: ? Transition lisinopril to Entresto, ? Cardiac MRI to evaluate echo findings further 6. Patient believes she has secured transportation to outpatient appointments 7. Outpatient cardiology follow-up Admission and Anticipated Discharge Date Admission Date: August 27, 2022 Supervising Physician Co-Signing Physician Notes 57-year-old female admitted with near syncope and possible hypoglycemia. Denies chest pain, unusual shortness of breath, orthopnea, or PND. Feeling well today. Tolerating medications. Telemetry reveals sinus rhythm in the 60-70s with occasional PVCs. PE: VSS. Gen: NAD, AAOx3. Heart: Regular rhythm, normal S1-S2. 2/6 low pitch mid peaking systolic ejection murmur heard best at the base. Lungs: Clear bilateral, no rales, rhonchi, wheeze. Extremities: No edema. A/P: Agree with above PA-C history, physical exam, assessment plan. Medication changes as noted above. Smoking cessation advised. Importance of compliance and outpatient follow-up discussed. No further inpatient cardiac testing or intervention at this time. Thank you for allowing me to participate in care of your patient. Subjective Patient seen and examined. Chart, medications, and telemetry reviewed. Feeling well. No chest pain. No palpitations. No new or worsening shortness of breath. No orthopnea, PND, peripheral edema. No dizziness or lightheadedness. No near syncope. No fevers or chills. Device interrogation on 08/27/2022. 6.5 years remaining longevity. 26 episodes of nonsustained ventricular tachycardia and 5 episodes of ventricular tachycardia observed since August 18, 2019. The last episode of nonsustained ventricular tachycardia occurred on August 07, 2022.+ Episode of ventricular tachycardia on August 25, 2022 at 02:57 lasting 9 seconds in duration, successfully treated with antitachycardia pacing. No VT or VF noted on the date of the event leading to this hospitalization. Time in AT/AF: < 0.1%. -VS 97.9%. AP-VS 2.1%. -ASSOCIATE PROFESSOR OF BIBLICAL STUDIES < 0.1%. Total ASSOCIATE PROFESSOR OF BIBLICAL STUDIES < 0.1%. Resting echocardiography on August 27, 2022 demonstrated the following: Technically adequate. Compared to prior study, changes are noted. LV systolic function is mildly reduced. Ejection fraction 45 to 50%. Mild concentric LVH and segments with normal wall motion. Isolated basal septal hypertrophy with a maximum diameter of 1.7 cm. Large sized apical, septal, anteroseptal, and inferior wall motion abnormality with hypokinesis to akinesis of the segments. Mild aortic valve sclerosis without significant stenosis. Mild mitral regurgitation. Continuous lining vamper reveals sinus rhythm with occasional PVCs, heart rates predominantly in the 80s, ranging from the 60s to 90. Review of Systems Review of Systems: Complete Review of Systems is as stated above, negative, or noncontributory. Physical Exam Physical Exam: General: A&Ox3. NAD. HENT: Normocephalic. Atraumatic. Eyes: PER. Conjunctiva pink, sclera clear. Neck: Carotid bruits. No JVD. Neck veins are flat. Heart: RRR. Grade II/ systolic murmur. No diastolic murmur. No rub. Lungs: Diminished. Decreased. No wheeze. Abdomen: +BS. Soft. Nontender. No masses or organomegaly. Extremities: No clubbing, cyanosis, or edema. Limited neurological examination is without focal deficits. Pulses: radial=2/4, posterior tibial=1/4. Results & Data Vital Signs (Past 12 Hours) Vital Signs Temp Pulse Pulse Resp BP Pulse Ox O2 Del Method 08/28/22 07:32 36.8 C 80 18 152/82 H 93 Room Air 08/28/22 06:00 70 08/28/22 00:00 73 08/28/22 04:36 36.5 C 75 16 115/72 95 Room Air 08/28/22 03:58 36.7 C 75 20 120/50 L 95 Nasal Cannula 08/27/22 23:43 36.5 C 76 16 123/80 93 Room Air O2 Flow Rate 08/28/22 07:32 08/28/22 06:00 08/28/22 00:00 08/28/22 04:36 08/28/22 03:58 6 08/27/22 23:43 Laboratory Results CBC 08/28/22 Range/Units 06:36 WBC 7.90 (4.8-10.8) K/ul RBC 4.89 (4.20-5.40) M/uL Hgb 14.1 (12.0-16.0) g/dl Hct 42.6 (37.0-47.0) % Plt Count 288 (130-400) K/uL Comprehensive Metabolic Panel 08/28/22 Range/Units 06:36 Sodium 138 (136-145) mmol/L Potassium 4.0 (3.5-5.1) mmol/L Chloride 106 (98-107) mmol/L Carbon Dioxide 25 (21-32) mmol/L BUN 17 (6-23) mg/dl Creatinine 0.58 L (0.6-1.2) mg/dl Glucose 113 H (70-99(Fasting)) mg/dl Calcium 8.8 (8.6-10.3) mg/dl Intake and Output 08/27/22 08/28/22 08/28/22 22:59 06:59 14:59 Intake Total 500 / 950 0 / 950 Balance 500 / 950 0 / 950 Intake: Oral 500 / 950 0 / 950 Other: # Unmeasured Voids 1 Weight 77.111 kg 73.085 kg Weight Measurement Method Built in [facility] (4) CHF (congestive heart failure) Heart failure chronicity: acute Heart failure type: unspecified Qualified Code(s): I50.9 - Heart failure, unspecified (6) CAD (coronary artery disease) Associated angina: with stable angina Coronary Disease-Associated Artery/Lesion type: [place] artery [place] vs. transplanted heart: [place] heart Qualified Code(s): I25.118 - Atherosclerotic heart disease of [place] coronary artery with other forms of angina pectoris
[2022-08-28] MEDS ORDERED: ISOSORBIDE MONO EXTENDED REL 30 MG TABCR PO SCH (09:00)
[2022-08-28] MEDS ORDERED: lisinopril 2.5 MG TAB PO SCH (09:00)
[2022-08-28] MEDS ORDERED: METOPROLOL SUCC 25MG EXT REL TAB PO STA (09:09)
[2022-08-28 11:39] VITALS: BP 91/57; TEMP 97.7
--- NOTE | 2022-08-28 13:05 | Discharge Summary ---
Date of Service August 28, 2022 Admission HPI Per Admitting Provider History obtained from patient and records. Medical history significant for chronic systolic heart failure (EF 45%, TTE 2019), CAD status post stent, VT status post cardioversion status post ICD,, mild MR, hypertension, hyperlipidemia, sarcoidosis, DM2 insulin requiring, GERD, cervical cancer status post surgery, PTSD/anxiety/mood disorder, ongoing tobacco abuse, noncompliance as per records. Last confinement October 2018 for NSTEMI, VT. LUCIANO placed for LAD stenosis. VT noted during confinement status post cardioversion and subsequent ICD placement. Unable to follow-up with packaging materials inspector since last visit August 2019 due to transportation issues. Patient roused from sleep 2 mornings ago by the loud noise coming from her bickering neighbors' house. Transient chest pain, palpitations attributed to anxiety from noise relieved by nitroglycerin. Patient spent the night at daughter's house last night to avoid stress from neighbors. Today, patient noted transient epigastric discomfort which she attributes to GERD. Yesterday, patient noted dizziness symptoms described as lightheadedness followed by a witnessed syncopal event with some head trauma. Some headache following head trauma. Patient denies chest pain, SOB. No witnessed seizures. Lowest SBP noted at the ER 80s. Medical History as above Surgical History : section, cervical colposcopy, TAO, ex lap Family History : Asthma, DM, heart disease Personal/Social history : 1/2 pack daily, no EtOH intake, currently unemployed, previous work as a [employer] Admission Exam Per Admitting Provider GENERAL: Comfortable, slightly anxious, obese, looks older than stated age, no respiratory distress SKIN: Normal color, warm HEENT: [place] palpebral conjunctivae, no ptosis, dry buccal mucosa NECK : Supple, short neck, no tenderness CHEST : CTA, no tenderness HEART : RRR, no obvious murmurs ABDOMEN: Some distention, nontender EXTREMITIES : No LE swelling/tenderness, no other conspicuous deformities noted NEUROLOGIC : Coherent, no facial asymmetry, no other gross focality Principal Diagnosis Syncope Poorly controlled diabetes mellitus Discharge Exam Constitutional + well hydrated; no acute distress Eyes PERRL, conjunctivae normal, anicteric sclerae ENMT external ear and nose normal, oropharynx normal Respiratory normal respiratory effort, lungs clear to auscultation Cardiovascular Rate/Rhythm: regular rate and regular rhythm S1 S2 Gastrointestinal (Abdomen) normal bowel sounds, soft, nontender, no hepatosplenomegaly Musculoskeletal no cyanosis or clubbing, extremities motor strength 5/5 Neurologic PERRL, EOMI, accommodation nl, no face palsy, no dysarthria Psychiatric A+Ox3, euthymic affect Discharge Data Allergies Allergy/AdvReac Type Severity Reaction Status Date / Time Bactrim Allergy Severe "SEVERE GI Verified 04/29/17 15:45 UPSET" mold Allergy Severe SNEEZING, Verified 08/26/22 22:51 WATERY EYES, MAY CAUSE SOB-DEPENDS ON MOLD sulfamethoxazole Allergy Severe "SEVERE GI Verified 08/26/22 22:51 UPSET" trimethoprim Allergy Severe "SEVERE GI Verified 08/26/22 22:51 UPSET" adhesive Allergy Intermediate REDNESS, Verified 08/26/22 22:51 ITCHY, BLISTERS Aminoglycosides Allergy Intermediate ITCHY RASH Verified 08/26/22 22:51 bacitracin Allergy Intermediate ITCHY RASH Verified 08/26/22 22:51 neomycin Allergy Intermediate ITCHY RASH Verified 08/26/22 22:51 polymyxin B Allergy Intermediate ITCHY RASH Verified 08/26/22 22:51 Consultations 08/26/22 22:09 ED Decision to Admit Stat 08/27/22 01:45 Consult Cardiology Routine Ordered Studies 08/26/22 18:59 CT cervical spine wo con Stat CT head/brain wo con Stat 08/27/22 04:10 Carotid duplex [US carotid doppler BI] Routine Diabetes Follow up Diabetes Follow-up Needed for HgbA1c >9% Hospital Course (1) Hypotension: (2) Syncope: History of VT s/p cardioversion, autonomic neuropathy, poorly controlled DM, chronic systolic heart failure, CAD s/p stent, CVA, sarcoidosis, cervical cancer s/p surgery, PTSD, anxiety, mood disorder, smoker who presents with syncopal episode Was noted to be hypotensive on presentation Syncope thought to be due to hypotension Device interrogation on 08/27/2022. 6.5 years remaining longevity. 26 episodes of nonsustained ventricular tachycardia and 5 episodes of ventricular tachycardia observed since August 18, 2019. The last episode of nonsustained ventricular tachycardia occurred on August 07, 2022.+ Episode of ventricular tachycardia on August 25, 2022 at 02:57 lasting 9 seconds in duration, successfully treated with antitachycardia pacing. No VT or VF noted on the date of the event leading to this hospitalization. Patient was evaluated by Cardiology Imdur was reduced to 30mg daily Amlodipine was stopped Metoprolol succinate was increased to 75mg daily Advised to use her walker at home HbA1c is 14.9 Patient reports that she was off all her antidiabetics a month ago for about a month due to 'mix up with her meds' She stated she is currently taking them but has lost her glucometer Provided DM education and counseled on need for adherence Script for new glucometer given Stopped ozempic per request stated she does not tolerate it well. Based on her blood glucose control inpatient, will continue lantus 60U daily, jardiance and metformin Advised to keep a blood glucose log To follow up with PCP Can follow up with patient educator outpatient Total Time Total Time Spent Total Time Spent (In Minutes): 50 Total Time Includes: Examination of the Patient, Discharge Planning, Medication Reconciliation and Communication With Other Providers Discharge Plan Discharge Items Patient Disposition: Home - Home Health Services Reason For Visit: SYNCOPE, HYPOTENSION Discharge Diagnosis: Syncope Poorly controlled diabetes mellitus Activity: Resume your previous activity Activity Comment: Use your walker Non-emergency contact: Primary Care Provider and [place] Call non-emergency contact if: you have any medication questions and your symptoms worsen Follow-up/Referrals: Jeremiah Foster MD [Primary Care Provider] - Diet: Carb Consistent or DM2 and Heart Healthy Addtl Attending Provider Instructions: Mrs Valdes You came to the hospital after passing out. You were extensively evaluated. The following adjustments were made to your medications: -Stop taking amlodipine -Your metoprolol succinate was increased from 50mg daily to 75mg daily -Your isosorbide mononitrate (imdur) was changed from 60mg to 30mg daily -Your ozempic was stopped according to your request of not tolerating it. Please ensure you continue to take your other diabetic medications. Please ensure follow up with Cardiology in the office Please ensure you follow up with your Primary Doctor within 1-2 weeks Please use the glucometer prescribed, monitor your blood glucose at home and keep a log of your measurements. It was a pleasure taking care of you Pending Studies at Discharge: No Stand-Alone Forms: My [employer], Smoking Cessation Medications and DC Order Prescriptions: New isosorbide mononitrate 30 mg Tablet Extended Release 24 Hr 30 mg PO QAM Qty: 30 0RF (DME) blood-glucose meter [OneTouch Ultra2 Meter] [facility] [place] See Rx Instructions .Route Qty: 1 0RF Rx Instructions: As directed. Check blood glucose twice a day (DME) OneTouch Ultra Test Strip See Rx Instructions .Route Qty: 100 0RF Rx Instructions: As directed. Check blood glucose twice a day (DME) lancets [OneTouch Delica Plus Lancet] 33 gauge misc See Rx Instructions .Route Qty: 100 0RF Rx Instructions: As directed. Check blood glucose twice a day Continued aspirin 81 mg Tablet,Chewable 81 mg PO DAILY Qty: 0 Patient Comments: Patient states she is too busy and doesn't have time to take her meds citalopram 20 mg Tablet 20 mg PO DAILY Qty: 0 Patient Comments: Patient states she is too busy and doesn't have time to take her meds montelukast [Singulair] 10 mg Tablet 10 mg PO QAM Qty: 0 Patient Comments: Patient states she is too busy and doesn't have time to take her meds. albuterol sulfate [Ventolin HFA] 90 mcg/actuation Hfa Aerosol Inhaler 2 puff INHALATION Q6H PRN (Reason: asthma) fenofibrate nanocrystallized [Tricor] 48 mg Tablet 48 mg PO DAILY Patient Comments: Patient states she is too busy and doesn't have time to take her meds mometasone-formoterol 100-5 mcg/actuation Hfa Aerosol Inhaler 2 puff INHALATION BID Patient Comments: Patient states she is too busy and doesn't have time to take her meds. nitroglycerin 0.4 mg tablet, sublingual 0.4 mg sublingual UD gabapentin [Neurontin] 300 mg capsule 600 mg PO QAM insulin glargine [Lantus Solostar U-100 Insulin] 100 unit/mL (3 mL) insulin pen 60 units SQ QAM lisinopril [Zestril] 2.5 mg tablet 2.5 mg PO DAILY polyethylene glycol 3350 [Miralax] 17 gram Powder In Packet 17 g PO DAILY PRN (Reason: Constipation) gabapentin 300 mg capsule 300 mg PO QPM mirtazapine 15 mg tablet 7.5 mg PO HS omega-3 fatty acids Capsule 1,000 mg PO DAILY rosuvastatin 40 mg tablet 40 mg PO DAILY Jardiance 25 mg tablet 25 mg PO DAILY ondansetron HCl 4 mg tablet 4 mg PO Q8 PRN (Reason: Nausea) vitamin B complex Tablet 1 tab PO DAILY metformin 500 mg tablet extended release 24 hr 1,000 mg PO BID diclofenac sodium 1 % Gel 0 g TOPICAL QID PRN (Reason: Pain) Brilinta 90 mg tablet 90 mg PO [facility] Changed metoprolol succinate 50 mg tablet extended release 24 hr 75 mg PO DAILY Qty: 60 0RF Discontinued isosorbide mononitrate 60 mg Tablet Extended Release 24 Hr 60 mg PO QAM amlodipine [Norvasc] 5 mg tablet 5 mg PO DAILY Trulicity 3 mg/0.5 mL pen injector 3 mg SUBCUT WE Rx Instructions: Takes on sun Discharge Orders: Discharge Order (Routine); Ordered 08/28/22 Ordered By: Lilliana Cho Admission Data Admit Date/Time: 08/27/22 00:07 Attending Provider: Lilliana Cho I. Admit Provider: Vahe Castaneda Primary Care Provider: Jeremiah Foster Other Providers: Vahe Castaneda ; Geno Monreal ; Patel Lopez ; Marco Hinojosa ; Tom Monsalve ; Jesús Montes De Oca ; Gregorio Brandt ; Cristal Godfrey ; Elvia Dalal ; Geno Bowman ; Bryan Barr ; Bro Licea ; [facility] Other Interventions: Discharge Summary Assessment (RN) Last Done: 08/28/22 13:13
[2022-08-28 14:58] VITALS: PULSE 73
[2022-08-29] MEDS ORDERED: METOPROLOL SUCC 25MG EXT REL TAB PO SCH (09:00)
== END 2022-08-28 16:07 | disposition home health service (06) | DRG 315 ==
LOC: ED 18:49 → 2S 08-27 00:07 → SUATTDRO 08-27 00:07 → 2S 08-27 01:44

== ENCOUNTER 2023-04-11 14:41 | Inpatient (IN) ==
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
--- OUTSIDE RECORDS SUMMARY | 2023-04-11 14:52 | External Medical Summary | Summary of Care ---
Author Name Unknown Organization [facility] Address [address] [place] [address] Phone [phone] Care Team Providers Care Newspaper Manager Name Role Phone Jeremiah Foster MD Primary Care Provider +1- [phone] Reason for Visit * Reason Onset Date Comments Medication Refill 03/16/2023 Encounter Details Date Type Department Care Team (Late st Contact Info) Description 03/16/2023 Refill Pharmacy, [facility] [address] [place] [address] Tam Lynch, [facility] [address] [place] [address] Type 2 diabetes mellitus with hemoglobin A1c goal of less than 7.0% ([facility])* Allergies Active Allergy Reactions Criticality Noted Date [...] Start Date End Date Status ONE TOUCH ULTRA SYSTEM KIT KITIndications:DM type 2, goal A1c below 7 as directed. DX: 250.00 1 0 08/02/2006 Active [place] 3-6-9 Fatty Acids (OMEGA 3-6-9 COMPLEX) Capsule Take 1 Cap by mouth daily. 0 Active OneTouch Ultra Blue In Vitro Strip (Glucose Blood) USE TO CHECK BLOOD SUGARS 4 TIMES PER DAY DIRECTED FOR INSULIN REQUIRING DIABETIC. Dx E11.29 400 Strip 1 11/26/2021 Active B Complex 100 TR Oral Tablet Extended Release Take by mouth . 0 Act sam Cvbeejs-Zalxbzmvu-C inc 333-133-5 MG Oral Tablet Take by [...] Tablet 3 09/01/2022 Active OneTouch Delica Plus Bwhlbq28K USE TO CHECK BLOOD SUGARS 4 TIMES [...] Tablet Sublingual (Nitrostat)Indicati ons:Coronary artery disease involving red devil coronary artery of red devil heart without angina pectoris DISSOLVE 1 TABLET [...] goal LDL below 70,Coronary artery disease involving red devil heart without angina pectoris, unspecified vessel or [...] 90 Tablet 5 02/18/2023 Active Dexcom G6 Clinical Information Systems Director Device Use as directed. Use to read blood glucose E 11.9 1 Each 0 03/01/2023 Active Dexcom G6 Sensor Use as directed. Use 1 every 10 days E 11.9 3 Each 11 03/01/2023 Active Dexcom G6 Transmitter Use as directed. Use 1 every 90 days E.11.9 1 Each 3 03/01/2023 Active Pen [place] 32G X 4 MM Use as directed. Use to injection insulin up to 4 times daily E11.9 400 Each 4 03/01/2023 Active Gabapentin 300 MG Oral Capsule (Neurontin) TAKE 2 CAPSULES BY MOUTH IN THE MORNING AND 1 CAPSULE IN THE EVENING 270 Capsule 0 03/09/2023 Active Insulin Aspart 100 UNIT/ML Subcutaneous Solution Pen-injector (novoLOG)Indication s:Type 2 diabetes mellitus with hemoglobin A1c goal of less than 7.0% ([facility]) Inject 10 Units under the skin in the morning and 10 Units at noon and 10 Units in the evening. Inject with meals. 5 Each 11 03/16/2023 Active NovoLOG FlexPen 100 UNIT/ML Subcutaneous Solution [...] disorder) 09/06/2012 Coronary artery disease invo lving red devil coronary artery of red devil heart without angina pectoris 04/27/2012 Presence of drug coated stent in right coronary artery 04/27/2012 Overview: 03/28/2012 at [facility] Dyslipidemia, goal LDL below 70 04/27/2012 [...] on file documented as of this encounter Plan of Treatment Upcoming Encounters Date Type Department Care Team ([facility] Contact Info) Description 03/30/2023 2:30 PM EST Office Visit Pharmacy, [place] [facility] [address] [place] [address] [facility] [address] [facility] [place] [place] [address] 07/09/2023 9:20 AM EDT Office Visit Family Practice, [place] [address] [place] [phone] Jeremiah Foster MD [address] [facility] [place] [address] 03/07/2024 10:00 AM EST Cardiac Studies Cardiology, [facility] [address] [facility] [place] [address] [address] [facility] [address] [place] [address] Health Maintenance Due Date Last Done Comments DISCUSS TOBACCO CESSATION (REFER TO SMARTSET #2654) 1965 DXA Scan 1965 COVID-19 Vaccine (#1) [...] goal of less than 7.0% (HCC)- Primary documented in this encounter Care Teams Newspaper Manager Relationship Specialty Start Date End Date Jeremiah Foster MD [address] [place] [address] PCP - General 05/28/00 documented as of this encounter
--- OUTSIDE RECORDS SUMMARY | 2023-04-11 14:52 | External Medical Summary | Summary of Care ---
Author Name Unknown Organization [facility] Address [address] [place] [address] Phone [phone] Care Team Providers Care Powder Hand Name Role Phone Jeremiah Foster MD Primary Care Provider +1- [phone] Reason for Visit * Reason Comments Defibrillator Clinic Encounter Details Date Type Department Care Team (Latest Contact Info) Description 03/05/2023 9:45 AM EST Cardiac Studies Cardiology, [facility] [address] [place] [address] [place], Pacer [facility] [address] [place] [address] Ventricular tachycardia, sustained (HCC)*; Presence of automatic cardioverter/defibri llator (AICD) Allergies Active Allergy Reactions Criticality Noted Date [...] as of this encounter (statuses as of 03/13/2023) Medications Medication Sig Dispensed Refills Start Date End Date Status ONE TOUCH ULTRA SYSTEM KIT KITIndications:DM type 2, goal A1c below 7 as directed. DX: 250.00 1 0 08/02/2006 Active [place] 3-6-9 Fatty Acids (OMEGA 3-6-9 COMPLEX) Capsule Take 1 Cap by mouth daily. 0 Active OneTouch Ultra Blue In Vitro Strip (Glucose Blood) USE TO CHECK BLOOD SUGARS 4 TIMES PER DAY DIRECTED FOR INSULIN REQUIRING DIABETIC. Dx E11.29 400 Strip 1 11/26/2021 Active B Complex 100 TR Oral Tablet Extended Release Take by mouth . 0 Act sam Dcdxnvo-Gsvrvnkiq-Z inc 333-133-5 MG Oral Tablet Take by [...] Tablet 3 09/01/2022 Active OneTouch Delica Plus [id number] USE TO CHECK BLOOD SUGARS 4 TIMES [...] Tablet Sublingual (Nitrostat)Indicati ons:Coronary artery disease involving [place] coronary artery of [place] heart without angina pectoris DISSOLVE 1 TABLET [...] goal LDL below 70,Coronary artery disease involving [place] heart without angina pectoris, unspecified vessel or [...] 15 mL 5 03/01/2023 Active Dexcom G6 Ring Striker Device Use as directed. Use to read blood glucose E 11.9 1 Each 0 03/01/2023 Active Dexcom G6 Sensor Use as directed. Use 1 every 10 days E 11.9 3 Each 11 03/01/2023 Active Dexcom G6 Transmitter Use as directed. Use 1 every 90 days E.11.9 1 Each 3 03/01/2023 Active Pen [place] 32G X 4 MM Use as directed. Use to injection insulin up to 4 times daily E11.9 400 Each 4 03/01/2023 Active Gabapentin 300 MG Oral Capsule (Neurontin) TAKE 2 CAPSULES BY MOUTH IN THE MORNING AND 1 CAPSULE IN THE EVENING 270 Capsule 0 07/29/2022 3 Discontinu ed(Refill) documented as of this encounter (statuses as of 03/13/2023) Active Problems Problem Noted Date Diagnosed Date [...] disorder) 09/06/2012 Coronary artery disease invo lving [place] coronary artery of [place] heart without angina pectoris 04/27/2012 Presence of [...] as of this encounter (statuses as of 03/13/2023) Resolved Problems Problem Noted Date Diagnosed Date [...] as of this encounter (statuses as of 03/13/2023) Immunizations Name Administration Dates Next Due Hepatitis B, 20+ yrs 06/15/2016,09/25/2015 Pneumococcal Polysaccharide PPV23 (Pneumovax) 09/24/2017,02/10/2006 SEASONAL INFLUENZA, PF, 6 M & Above, IM , (FLULAVAL or FLUZONE) 03/18/2021,02/15/2019,12/30/2017 Seasonal Influenza, Quadriva lent, No Preserve, IM [...] on file documented as of this encounter Progress Notes * Sushila Eden, LUIS M - 03/13/2023 11:26 AM EST In office interrogation performed. Providers see scanned report in scans tab labeled MURJ. documented in this encounter Nursing Notes * Kell Garza RN - 03/05/2023 9:51 AM EST Patient and implanted device were evaluated today in the [facility]. Providers please see scanned report in the Scans tab. ICD reprogramming B>AX performed as per [employer] advisory. Wavelet updated. Tech: Charles Gutierrez, Berenice documented in this encounter Plan of Treatment Upcoming Encounters Date Type Department Care Team (Late st Contact Info) Description 03/30/2023 2:30 PM EST Office Visit Pharmacy, [place] [address] [place] [address] [facility] [address] [place] [address] 07/09/2023 9:20 AM EDT Office Visit Family Practice, [place] [address] [place] [address] Jeremiah [place] MD [address] [place] [address] 03/07/2024 10:00 AM EST Cardiac Studies Cardiology, [facility] [address] [place] [address] [place], Pacer [facility] [address] [place] [address] Scheduled Orders Name Type Priority Associated Diagnoses Orde r Schedule DUAL-LEAD DEFIBRILLATOR + REPROGRAM Procedures Routine Ventricular tachycardia, sustained (HCC) Presence of automatic cardioverter/defibril lator (AICD) Ordered: 03/05/2023 Health Maintenance Due Date Last Done Comments DISCUSS TOBACCO CESSATION (REFER TO SMARTSET #3291) 1965 DXA Scan 1965 COVID-19 Vaccine (#1) [...] 08/30/2020, Additional history exists GFR 03/09/2024 03/09/2023, 10/0 06/2022, 11/05/2022, Additional history exists O2 ASSESSMENT [...] as of this encounter Visit Diagnoses Diagnosis Ventricular tachycardia, sustained (HCC)- Primary Paroxysmal ventricular tachycardia Presence of automatic cardioverter/defibrillator (AICD) Automatic implantable cardiac defibrillator in situ documented in this encounter Care Teams Powder Hand Relationship Specialty Start Date End Date Jeremiah [place] MD [address] [place] [address] PCP - General 05/28/00 documented as of this encounter
--- OUTSIDE RECORDS SUMMARY | 2023-04-11 14:52 | External Medical Summary | Summary of Care ---
Author Name Unknown Organization [facility] Address [address] [place] [address] Phone [phone] Care Team Providers Care Shampooer Name Role Phone Jeremiah [place] MD Primary Care Provider +1- [phone] Encounter Details Date Type Department Care Team (Late st Contact Info) Description 04/06/2023 Result Scan Unspecified Department Tom Monsalve O, DO [address] [place] [address] <No scans attached> Allergies Active Allergy Reactions Criticality Noted Date [...] directed. DX: 250.00 1 0 08/02/2006 Active [place] 3-6-9 Fatty Acids (OMEGA 3-6-9 COMPLEX) Capsule Take 1 Cap by mouth daily. 0 Active OneTouch Ultra Blue In Vitro Strip (Glucose Blood) USE TO CHECK BLOOD SUGARS 4 TIMES PER DAY DIRECTED FOR INSULIN REQUIRING DIABETIC. Dx E11.29 400 Strip 1 11/26/2021 Active B Complex 100 TR Oral Tablet Extended Release Take by mouth . 0 Active Xidzygv-Xmwmvzfmg-Pe nc 333-133-5 MG Oral Tablet Take by [...] Tablet 3 09/01/2022 Active OneTouch Delica Plus Pzzxom58G USE TO CHECK BLOOD SUGARS 4 TIMES [...] Aerosol (Dulera)Indications: COPD, severity to be determined ([facility]) INHALE 2 PUFFS BY MOUTH TWO TIMES A DAY 39 g 1 07/27/2022 07/27/2023 Active metFORMIN HCl ER 500 MG Oral Tablet Extended Release 24 Hour (Glucophage XR)Indications:DM type 2 causing renal disease, not at goal ([facility]) TAKE TWO TABLETS BY MOUTH EVERY DAY TWO TIMES A DAY 360 Tablet 0 07/27/2022 07/27/2023 Active Nitroglycerin 0.4 MG Sublingual Tablet Sublingual (Nitrostat)Indicatio ns:Coronary artery disease involving [place] coronary artery of [place] heart without angina pectoris DISSOLVE 1 TABLET [...] goal LDL below 70,Coronary artery disease involving [place] heart without angina pectoris, unspecified vessel or [...] 90 Tablet 5 02/18/2023 Active Dexcom G6 Biomedical Field Service Engineer Device Use as directed. Use to read blood glucose E 11.9 1 Each 0 03/01/2023 Active Dexcom G6 Sensor Use as directed. Use 1 every 10 days E 11.9 3 Each 03/01/2023 Active Dexcom G6 Transmitter Use as directed. Use 1 every 90 days E.11.9 1 Each 3 03/01/2023 Active Pen [place] 32G X 4 MM Use as directed. Use to injection insulin up to 4 times daily E11.9 400 Each 4 03/01/2023 Active Insulin Aspart 100 UNIT/ML Subcutaneous Solution Pen-injector (novoLOG)Indications :Type 2 diabetes mellitus with hemoglobin A1c goal of less than 7.0% ([facility]) Inject 10 Units under the skin in the morning and 10 Units at noon and 10 Units in the evening. Inject with meals. 5 Each 03/16/2023 Active Gabapentin 600 MG Oral Tablet [...] disorder) 09/06/2012 Coronary artery disease invo lving [place] coronary artery of [place] heart without angina pectoris 04/27/2012 Presence of drug coated stent in right coronary artery 04/27/2012 Overview: 03/28/2012 at [facility] Dyslipidemia, goal LDL below 70 [...] money to buy more. Never true 09/11/19 Within the past 12 months, t he [...] Care Team (Late st Contact Info) Description 04/28/2023 6:10 PM EST Scheduled Telephone Pharm[facility], [place] [address] [facility] [address] [place] [address] [facility] [address] 07/09/2023 9:20 AM EDT Office Visit Family Practice, [place] [facility] [address] [facility] [place] [address] [facility]iah [place] [facility] [address] [facility] [place] [address] 03/07/2024 10:00 AM EST Cardiac Studies Cardiology, [facility] [address] [place] [address] [place], Pacer [facility] [address] [place] [address] Health Maintenance Due Date Last Done Comments DISCUSS TOBACCO CESSATION (REFER TO SMARTSET #3293) 1965 DXA Scan 1965 COVID-19 Vaccine (#1) [...] Not on filedocumented as of this encounter Procedures Procedure Name Priority Date/Time Associated Diagnosis Comments CARDIOLOGY SCANNED RESULT 04/06/2023 documented in this encounter Results * CARDIOLOGY SCANNED RESULT (04/06/2023) 04/06/2023 Tom Monsalve DO OTHER documented in this encounter Care Teams Shampooer Relationship Specialty Start Date End Date Jeremiah [place] MD [address] [place] [address] PCP - General 05/28/00 documented as of this encounter
--- OUTSIDE RECORDS SUMMARY | 2023-04-11 14:52 | External Medical Summary | Summary of Care ---
Author Name Unknown Organization [facility] Address [address] [place] [address] Phone [phone] Care Team Providers Care Manufacturing Worker Name Role Phone Jeremiah [place] MD Primary Care Provider +1- [phone] Reason for Visit * Reason Onset Date Comments Medication Pre-auth 03/16/2023 NovoLOG Flex Pen 100 UNIT/ML Subcutaneous Solution Pen-injector (insulin aspart) Encounter Details Date Type Department Care Team (Late st Contact Info) Description 03/16/[address] [facility] [address] [place] [address] Oz Barkley MD [address] [place] [address] Medication Pre-auth (NovoLOG FlexPen 100 [...] Start Date End Date Status ONE TOUCH [employer] SYSTEM KIT KITIndications:DM type 2, goal A1c below 7 as directed. DX: 250.00 1 0 08/02/2006 Active [place] 3-6-9 Fatty Acids (OMEGA 3-6-9 COMPLEX) Capsule Take 1 Cap by mouth daily. 0 Active OneTouch Ultra Blue In Vitro Strip (Glucose Blood) USE TO CHECK BLOOD SUGARS 4 TIMES PER DAY DIRECTED FOR INSULIN REQUIRING DIABETIC. Dx E11.29 400 Strip 1 11/26/2021 Active B Complex 100 TR Oral Tablet Extended Release Take by mouth . 0 Active Hcyqgqr-Piwbbjqox-Wv nc 333-133-5 MG Oral Tablet Take by [...] Tablet 3 09/01/2022 Active OneTouch Delica Plus Rzvmzm00O USE TO CHECK BLOOD SUGARS 4 TIMES [...] Tablet Sublingual (Nitrostat)Indicatio ns:Coronary artery disease involving [place] coronary artery of [place] heart without angina pectoris DISSOLVE 1 TABLET [...] goal LDL below 70,Coronary artery disease involving [place] heart without angina pectoris, unspecified vessel or [...] 90 Tablet 5 02/18/2023 Active Dexcom G6 Radiography Technician Device Use as directed. Use to read blood glucose E 11.9 1 Each 0 03/01/2023 Active Dexcom G6 Sensor Use as directed. Use 1 every 10 days E 11.9 3 Each 11 03/01/2023 Active Dexcom G6 Transmitter Use as directed. Use 1 every 90 days E.11.9 1 Each 3 03/01/2023 Active Pen [place] 32G X 4 MM Use as directed. [...] hemoglobin A1c goal of less than 7.0% ([facility]) Inject 10 Units under the skin in [...] disorder) 09/06/2012 Coronary artery disease invo lving [place] coronary artery of [place] heart without angina pectoris 04/27/2012 Presence of drug coated stent in right coronary artery 04/27/2012 Overview: 03/28/2012 at [facility] Dyslipidemia, goal LDL below 70 04/27/2012 [...] Notes * Telephone Encounter - Daniel Freitas, [facility] - 03/17/2023 11:55 AM EST Confirmed with pharmacy there is a paid claim for generic novolog. Thank You, Daniel Freitas, Pharm-D Clinical Pharmacist [facility] ([facility]) (Formerly Telepharmacy) [phone] 03/17/2023, 11:55 AM * Telephone Encounter - Clifton Villegas CPhT - 03/17/2023 11:45 AM EST Called pharmacy again and was advised by 2 pharmacy reps generic novolog is lantus (it's not) and Rx ready for car pick up driver [facility] to follow up with pharmacy to clarify/resolve issue Thank you, Gael Villegas (die drawing checker) Education And Training Manager III [facility] ([facility]) (formerly Telepharmacy) 03/17/2023, 11:45 AM * Telephone Encounter - Clifton Villegas CPhT - 03/16/2023 3:53 PM EST This is a new [place] request. Upon review of this prior authorization request, I verified the plan willcover the generic form of this medication. Per chart, the patient doesn't need brand name. I attempted to call pharmacy but could not get thru Will try again later Thank you, Gael London) Education And Training Manager III [facility] ([facility]) (formerly [...] follows: Patient name: Sandy Wolfe ID number: [id number] BIN number: [id number] PCN number: [id number] Group number: Subscriber name: Sandy Ferraraloskey Primary or Secondary Insurance:Primary Medication:NovoLOG FlexPen 100 UNIT/ML Subcutaneous Solution Pen-injector (insulin aspart) Reason for Request: not on formulary Pharmacy and phone number: [id number] [address] [facility] Rx plan and phone number: MONET Phillip [phone] Is this a new medication for the patient? yes What alternative medications does the pharmacy have in stock?: Sig Not Known Thank you, Daysi Butts Education And Training Manager II [facility] ([facility]) (formerly Telepharmacy) 03/16/2023 11:19 AM documented in this encounter Plan of Treatment Upcoming Encounters Date Type Department Care Team (Late st Contact Info) Description 03/30/2023 2:30 PM EST Office Visit Pharmacy, [address] [address] [facility] [address] [place] [address] 07/09/2023 9:20 AM EDT Office Visit [facility], [place] [address] [place] [address] Jeremiah [place] MD [address] [place] [address] 03/07/2024 10:00 AM EST Cardiac Studies Cardiology, [facility] [address] [facility] [place] [address] [place] Pacer Clinic [facility] [address] [facility] [place] [address] Health Maintenance Due Date Last Done Comments DISCUSS TOBACCO CESSATION (REFER TO SMARTSET #3408) 1965 DXA Scan 1965 COVID-19 Vaccine (#1) [...] 08/30/2020, Additional history exists GFR 03/09/2024 03/09/2023, 1006/2022, 11/05/2022, Additional history exists O2 ASSESSMENT COMPLETED [...] (HCC) documented in this encounter Care Teams Manufacturing Worker Relationship Specialty Start Date End Date Jeremiah [place] MD [address] [place] [address] PCP - General 05/28/00 documented as of this encounter
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
--- OUTSIDE RECORDS SUMMARY | 2023-04-11 14:53 | External Medical Summary ---
Author Name Unknown Address Unknown Organization K01:[facility] [place] [facility] [address] [facility] [address] [facility] [address] Laboratory Report Ordering Provider Test Date Status IVET DOYLE 03/09/2023 12:31:08 Final Observation Date Value Abnormality Reference (Units ) Status BUN 03/09/2023 12:31:08 12 6-20 (mg/dL) Final Creatinine 03/09/2023 12:31:08 0.4 Below low normal 0.5-1.0 (mg/dL) Final Glomerular filtration rate/1.73 sq M.predicted [Volume Rate/Area] in Serum, Plasma or Blood by Creatinine-based formula (CKD-EPI) 03/09/2023 12:31:08 >90 >=60 (mL/min) Final eGFR is calculated based on the CKD-EPI 2020 equation SODIUM 03/09/2023 12:31:08 131 Below low normal 135 -146 (mmol/L) Final Potassium 03/09/2023 12:31:08 4.5 3.5-5.1 (m mol/L) Final Cl 03/09/2023 12:31:08 94 Below low normal 98- 107 (mmol/L) Final CO2 03/09/2023 12:31:08 27 22-32 (mmo l/L) Final Anion gap 03/09/2023 12:31:08 10 7-15 (mmol /L) Final Glucose 03/09/2023 12:31:08 318 Above high normal 70 -120 (mg/dL) Final Calcium 03/09/2023 12:31:08 9.4 8.4-10.2 ( mg/dL) Final Performing Location [facility] [place] - [address] [facility] [address]
--- OUTSIDE RECORDS SUMMARY | 2023-04-11 14:53 | External Medical Summary ---
Author Name Unknown Address Unknown Organization K01:[place] [place] [address] [facility] [address] Laboratory Report Ordering Provider Test Date Status IVET DOYLE 03/09/2023 12:31:08 Final Observation Date Value Abnormality Reference (Units ) Status HbA1C 03/09/2023 12:31:08 16.0 Above high normal 4. 0-5.6 (%) Final The use of HbA1c to monitor glycemic status is based on normal hemoglobin and HbA composition. This test should not be used in patients with abnormal hemoglobin that affects the half life of the red blood cell or the in vivo glycation rates. Glucose, estimated average 03/09/2023 12:31:08 413 Above high normal <126 (mg/dL) Jatinder reilly Performing Location [facility] [place] [place] [address] [facility] [address]
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
--- OUTSIDE RECORDS SUMMARY | 2023-04-11 14:53 | External Medical Summary | Summary of Care ---
Author Name Unknown Organization [facility] Address [address] [place] [address] Phone [phone] Care Team Providers Care Tomato Pulper Operator Name Role Phone Jeremiah Foster MD Primary Care Provider +1- [phone] Reason for Visit * Reason Comments Dosage Adjustment In Person (Anticoag Cl inic) Diabetes Education * Evaluate & Treat - Unlimited Visits (Within 10 days (routine)) - Authorized Specialty Diagnoses / Procedures Referred By Reena sol Referred To Contact Pharmacist / Pharmacy Diagnoses Type 2 diabetes mellitus with hemoglobin A1c goal of less than 7.0% (HCC) Insulin dependent type 2 diabetes mellitus (HCC) Oz Barkley MD [address] [place] [address] Referral ID Status Reason Start Date Expiration Date Visits Requested Visits Authorized [id number] Authorized Specialty Services Required 02/18/2023 99 99 Encounter Details Date Type Department Care Team (Late st Contact Info) Description 03/01/2023 1:40 PM EST Office Visit Pharmacy, [place] [address] [place] [address] [facility] [address] [place] [address] Type 2 diabetes mellitus with hemoglobin A1c goal of less than 8.0% ([facility])* Allergies Active Allergy Reactions Criticality Noted Date [...] Refills Start Date End Date Status ONE [employer] SYSTEM KIT KITIndications:DM type 2, goal A1c below 7 as directed. DX: 250.00 1 0 7 Active [place] 3-6-9 Fatty Acids (OMEGA 3-6-9 COMPLEX) Capsule Take 1 Cap by mouth daily. 0 Active OneTouch Ultra Blue In Vitro Strip (Glucose Blood) USE TO CHECK BLOOD SUGARS 4 TIMES PER DAY DIRECTED FOR INSULIN REQUIRING DIABETIC. Dx E11.29 400 Strip 1 2 Active B Complex 100 TR Oral Tablet Extended Release Take by mouth . 0 Act sam Sfsrrdd-Lvnjgvkec-H inc 333-133-5 MG Oral Tablet Take by mouth . 0 Active OneTouch Delica Lancets 33G USE TO CHECK BLOOD SUGARS 4 TIMES PER DAY DIRECTED FOR INSULIN REQUIRING DIABETIC. Dx E11.29 400 Each 1 3 Active Insulin Glargine 100 UNIT/ML Subcutaneous Solution Pen-injector (Lantus)Indications :DM type 2 causing renal disease, not at goal (HCC) Inject 60 units once daily 60 mL 0 3 Active Gabapentin 300 MG Oral Capsule (Neurontin) TAKE 2 CAPSULES BY MOUTH IN THE MORNING AND 1 CAPSULE IN THE EVENING 270 Capsule 0 3 Active Montelukast Sodium 10 MG Oral Tablet (Singulair)Indicati ons:Allergic rhinitis due to other allergic trigger, unspecified seasonality Take 1 Tablet by mouth in the morning. 30 Tablet 0 3 Active Citalopram Hydrobromide 40 MG Oral Tablet (CeleXA) Take 1 Tablet by mouth in the morning. 90 Tablet 3 3 Active OneTouch Delica Plus Afgzhm05L USE TO CHECK BLOOD SUGARS 4 TIMES PER DAY DIRECTED FOR INSULIN REQUIRING DIABETIC 400 Each 1 3 07/27/19 24 Active Rosuvastatin Calcium 40 MG Oral Tablet (Crestor)Indication s:Dyslipidemia, goal LDL below 70 TAKE ONE TABLET BY MOUTH EVERY MORNING 90 Tablet 3 3 07/27/19 24 Active Mirtazapine 15 MG Oral Tablet (Remeron) TAKE ONE-HALF TABLET BY MOUTH EVERY DAY AT BEDTIME 45 Tablet 3 3 07/27/19 24 Active Ticagrelor 90 MG Oral Tablet (Brilinta) TAKE ONE TABLET BY MOUTH EVERY MORNING AND ONE TABLET BEFORE BEDTIME 180 Tablet 3 3 07/27/19 24 Active Albuterol Sulfate HFA 108 (90 Base) MCG/ACT Inhalation Aerosol Solution INHALE TWO PUFFS BY MOUTH FOUR TIMES A DAY 54 g 1 3 07/27/19 24 Active Diclofenac Sodium 1 % External Gel (Voltaren)Indicatio ns:Osteoarthritis of right knee, unspecified osteoarthritis type APPLY TOPICALLY TO AFFECTED AREA 4 TIMES A DAY. APPLY TO KNEE OR ANKLE TO TREAT PAIN. 400 g 0 3 07/27/19 24 Active Mometasone Furo-Formoterol Fum 100-5 MCG/ACT Inhalation Aerosol (Dulera)Indications :COPD, severity to be determined (HCC) INHALE 2 PUFFS BY MOUTH TWO TIMES A DAY 39 g 1 3 07/27/19 24 Active metFORMIN HCl ER 500 MG Oral Tablet Extended Release 24 Hour (Glucophage XR)Indications:DM type 2 causing renal disease, not at goal (HCC) TAKE TWO TABLETS BY MOUTH EVERY DAY TWO TIMES A DAY 360 Tablet 0 3 07/27/19 24 Active Nitroglycerin 0.4 MG Sublingual Tablet Sublingual (Nitrostat)Indicati ons:Coronary artery disease involving kaguyuk coronary artery of kaguy[place] heart without angina pectoris DISSOLVE 1 TABLET UNDER TONGUE EVERY 5 MINUTES NEEDED FOR CHEST PAIN. UP TO 3 DOSES IN 15 MINUTES. 100 Tablet 1 3 07/27/19 24 Active Empagliflozin 25 MG Oral Tablet (Jardiance) Take 1 Tablet by mouth in the morning. 90 Tablet 3 3 Active Metoprolol Succinate ER 50 MG Oral Tablet Extended Release 24 Hour (toPROL XL) Take 1.5 Tablets by mouth in the morning. 90 Tablet 3 3 Active Isosorbide Mononitrate ER 30 MG Oral Tablet Extended Release 24 Hour (Imdur) Take 1 Tablet by mouth in the morning. 90 Tablet 3 3 Active Aspirin 81 MG Oral Tablet Delayed Release Take 1 Tablet by mouth in the morning. 100 Tablet 3 3 Active Lisinopril 2.5 MG Oral Tablet (Prinivil) Take 1 Tablet by mouth in the morning. 90 Tablet 3 3 Active Lantus SoloStar 100 UNIT/ML Subcutaneous Solution Pen-injector Inject 60 Units under the skin every evening. INJECT 60 UNITS UNDER THE SKIN ONCE DAILY 60 mL 1 3 Active Furosemide 20 MG Oral Tablet (Lasix) Take 1 tablet by mouth 2 days per week (Wednesday, ). May take an additional tablet if needed for worsening shortness of breath, fluid retention, weight gain.Take 1 tablet by mouth 2 days per week (Wednesday, ). May take an additional tablet if needed for worsening shortness of breath, fluid retention, weight gain. 30 Tablet 5 3 Active Fenofibrate 48 MG Oral Tablet (Tricor)Indications :Dyslipidemia, goal LDL below 70,Coronary artery disease involving kaguy[place] heart without angina pectoris, unspecified vessel or lesion type,Tobacco use disorder,HTN, goal below 130/80,S/P angioplasty with stent Take 1 Tablet by mouth in the morning. TAKE ONE TABLET BY MOUTH EVERY MORNING. 90 Tablet 3 3 Active Baclofen 10 MG Oral Tablet (Lioresal) Take 1 Tablet by mouth in the morning and 1 Tablet at noon and 1 Tablet before bedtime. 90 Tablet 5 3 Active NovoLOG FlexPen 100 UNIT/ML Subcutaneous Solution Pen-injector (insulin aspart) Inject 10 Units under the skin in the morning and 10 Units at noon and 10 Units in the evening. Inject with meals. E11.9. 15 mL 5 3 Active Dexcom G6 Supervisor Harvesting Device Use as directed. Use to read blood glucose E 11.9 1 Each 0 3 Active Dexcom G6 Sensor Use as directed. Use 1 every 10 days E 11.9 3 Each 3 Active Dexcom G6 Transmitter Use as directed. Use 1 every 90 days E.11.9 1 Each 3 3 Active Pen [place] 32G X 4 MM Use as directed. Use to injection insulin up to 4 times daily E11.9 400 Each 4 3 Active Unifine Pentips 31G X 8 MM (Insulin Pen Needle)Indications: Type 1 diabetes mellitus with hemoglobin A1c goal of less than 7.0% (HCC) USE TO INJECT LANTUS AND NOVOLOG 5 times a day Dx E11.29 500 Each 2 2 03/01/20 23 Discontinued documented as of this encounter (statuses as [...] disorder) 09/06/2012 Coronary artery disease invo lving kaguyuk coronary artery of kaguy[place] heart without angina pectoris 04/27/2012 Presence of drug coated stent in right coronary artery 04/27/2012 Overview: 03/28/[address] [facility] Dyslipidemia, goal LDL below 70 04/27/2012 [...] as of this encounter Progress Notes * Natali Bryant, [facility] - 03/01/2023 1:40 PM EST Medication Therapy Disease Management [facility] - Diabetes Management Progress Note Sandy Wolfe, identified by name and date of , is a 57 year old female being seen for diabetes management/education. Patient presents for initial diabetic visit. Past Medical History: Diagnosis Date Anxiety state Anxiety State CAD (coronary artery disease) 04/27/2012 Cervical cancer (HCC) Cervical Cervical cancer (HCC) 1985 Depressive disorder, not elsewhere classified Depression DM type 2 causing neurological disease (HCC) Diabetic Neuropathy DM type 2, not at goal ([facility]) Diabetes Type II, Uncontrolled Dyslipidemia, goal LDL below 160 Hypercholesterolemia High triglycerides Hypertriglyceidemia HTN, goal below 140/90 Hypertension Benign Panic disorder Presence of drug coated stent in right coronary artery 04/27/2012 03/28/[address] [facility] Sarcoidosis 2008 Diagnosis: Type 2 Age of diabetes diagnosis: several years ago Family history of diabetes: n/a Microvascular complications: none Macrovascular complications: hypertension dyslipidemia coronary artery disease History of Treatment Barriers: Lifestyle: None Therapy considerations: None Medication: Trulicity- lack of appetite/weight/GI upset: FLO see as listed DIABETES: Current diabetic medications: Jardiance 25 mg daily Lantus 60 units daily Metformin ER 500 mg BID Medication Injection Site: Abdomen Lifestyle: Diet: unchanged Glucose Review/SMBG: Readings per patient memory/recall: Patient is currently testing 0 times a day Hypoglycemia: Does your blood sugar go below 70 mg/dL? No Hyperglycemia symptoms present: none Recent Labs Units 11/05/22 1032 12/26/21 1322 08/19/21 1210 HEMOGLOBIN A1C - [facility] % 11.2* 8.3* 8.4* Recent Labs Units 01/19/23 1147 11/05/22 1032 12/26/21 1322 ESTIMATED GLOMERULAR FILTRATION RATE - [facility] mL/min >90 >90 >90 CREATININE - [facility] mg/dL 0.6 0.7 0.7 HYPERTENSION: Patient on ACEi/ARB: yes BP Readings from Last 3 Encounters: 02/18/23 136/80 01/19/23 136/80 11/05/22 126/74 Blood pressure at goal: yes HYPERLIPIDEMIA: Patient is taking moderate or high intensity statin: yes HEALTH MAINTENANCE REVIEW: Health Maintenance Due Topic Date Due DXA Scan Never done DISCUSS TOBACCO CESSATION (REFER TO SMARTSET #3293) Never done COVID-19 Vaccine (1) Never done Alpha-1 Antitrypsin Never done Colorectal Cancer Screening Never done Hepatitis B (3 of 3 - 19+ 3-dose series) 08/10/2016 Pneumococcal Vaccine: Pediatrics (0 to 5 Years) and At-Risk Patients (6 to 64 Years) (2 - PCV) 09/24/2018 Depression Screening 12/15/2019 Zoster Vaccines (2 of 2) 10/14/2021 Albumin/Creatinine Ratio 03/18/2022 Influenza Vaccine (FLU shot) (1) 12/18/2022 B-12 12/26/2022 DTaP,Tdap,and Td Vaccines (2 - Td or Tdap) 01/19/2023 ASSESSMENT & PLAN: No diagnosis found. BG Readings - Blood sugars uncontrolled. Bg values uncontrolled. Patient not currently testing due to pain in hands/wrists. Recommending to trial Dexcom G6. Patient agreeable and sensor demo provided. Medications - Reviewed current regimen, patient is adherent to regimen. Recommending to restart novolog to help control BG values. Patient is agreeable. Potentially return to B2Brev with new formulary in 2023 as this helped and didn't cause the issues of trulicity per patient. She is also interested in omnipod pump, will discuss further with next appt. Diet, Exercise, Lifestyle - No significant lifestyle changes since last visit. Discussed with patient, interested in DM handouts. . Patient is agreeable to CGM Patient aware to contact clinic if any hypoglycemia before next visit. MEDICATION CHANGES: yes, see below; preferred pharmacy: [facility] Diabetic Medications: Jardiance 25 mg daily Lantus 60 units daily Metformin ER 500 mg BID START: Novolog 10 units with meals START: Dexcom G6 HEALTH MAINTENANCE INTERVENTIONS: Labs: Up to Date Immunizations: Up to Date Foot Exam: Up to Date Eye Exam: Up to Date Annual Wellness Visit: N/A FOLLOW UP: Return to clinic in 4 weeks 03/30/2023 Natali Bryant RPh Clinical Pharmacist - Statistical Clerk Medication Therapy Management Clinic 03/01/2023, 1:40 PM documented in this encounter Plan of Treatment Upcoming Encounters Date Type Department Care Team (Late st Contact Info) Description 03/05/2023 9:45 AM EST Cardiac Studies Cardiology, [facility] [address] [place] [address] [facility] [address] [place] [address] 03/09/2023 11:40 AM EST Office Visit Family Practice, [place] [address] [facility] [place] [id number] Jeremiah Foster MD [address] [place] [address] 03/30/2023 2:30 PM EST Office Visit Pharmacy, [place] [address] [facility] [place] [address] [facility] [address] [facility] [place] [address] Health Maintenance Due Date Last Done Comments DISCUSS TOBACCO CESSATION (REFER TO SMARTSET #8335) 1965 DXA Scan 1965 COVID-19 Vaccine (#1) [...] 07/07/2003, Additional history exists HbA1c 05/08/2023 11/05/2022, 12/2021, 08/19/2021, Additional history exists Mammogram 09/02/2023 [...] with hemoglobin A1c goal of less than 8.0% (HCC)- Primary documented in this encounter Care Teams Tomato Pulper Operator Relationship Specialty Start Date End Date Jeremiah Foster MD [address] [place] [address] PCP - General 05/28/00 documented as of this encounter
--- OUTSIDE RECORDS SUMMARY | 2023-04-11 14:53 | External Medical Summary | Summary of Care ---
Author Name Unknown Organization [facility] Address [address] [place] [address] Phone [phone] Care Team Providers Care Latin Teacher Name Role Phone Jeremiah Foster MD Primary Care Provider +1- [phone] Encounter Details Date Type Department Care Team (Late st Contact Info) Description 02/19/2023 Telephone [facility] [address] [place] [address] Jeremiah Foster MD [address] [place] [address] Allergies Active Allergy Reactions Criticality [...] Start Date End Date Status ONE TOUCH Quibly SYSTEM KIT KITIndications:DM type 2, goal A1c below 7 as directed. DX: 250.00 1 0 08/02/2006 Active [place] 3-6-9 Fatty Acids (OMEGA 3-6-9 COMPLEX) Capsule Take 1 Cap by mouth daily. 0 Active Unifine Pentips 31G X 8 MM (Insulin Pen Needle)Indications:T ype 1 diabetes mellitus with hemoglobin A1c goal of less than 7.0% ([facility]) USE TO INJECT LANTUS AND NOVOLOG 5 times a day Dx E11.29 500 Each 2 11/26/2021 Active OneTouch Ultra Blue In Vitro Strip (Glucose Blood) USE TO CHECK BLOOD SUGARS 4 TIMES PER DAY DIRECTED FOR INSULIN REQUIRING DIABETIC. Dx E11.29 400 Strip 1 11/26/2021 Active B Complex 100 TR Oral Tablet Extended Release Take by mouth . 0 Active Vugpbbp-Ycynnsahz-Lc nc 333-133-5 MG Oral Tablet Take by mouth . 0 Active OneTouch Delica Lancets 33G USE TO CHECK BLOOD SUGARS 4 TIMES PER DAY DIRECTED FOR INSULIN REQUIRING DIABETIC. Dx E11.29 400 Each 1 07/27/2022 Active Insulin Glargine 100 UNIT/ML Subcutaneous Solution Pen-injector (Lantus)Indications: DM type 2 causing renal disease, not at goal ([facility]) Inject 60 units once daily 60 [...] Tablet 3 09/01/2022 Active OneTouch Delica Plus [id number] USE TO CHECK BLOOD SUGARS 4 TIMES [...] Tablet Sublingual (Nitrostat)Indicatio ns:Coronary artery disease involving [place] coronary artery of [place] heart without angina pectoris DISSOLVE 1 TABLET [...] goal LDL below 70,Coronary artery disease involving [place] heart without angina pectoris, unspecified vessel or [...] disorder) 09/06/2012 Coronary artery disease invo lving [place] coronary artery of [place] heart without angina pectoris 04/27/2012 Presence of [...] Ricardo OSA - 02/22/2023 2:52 PM EST [facility] called in to state they received home care referral for physical therapy, due to health plan not covering home health services cannot be rendered. * Telephone Encounter - Roxana Singh OSA - 02/22/2023 2:13 PM EST Refaxed all info to [facility]. 02/22/2023 * Telephone Encounter - Blanca Rendon OSA - 02/19/2023 1:35 PM EDT [facility] care received referral for this patient, however they are not PAR with the [employer] insuranceand will not be able to take this patient on. Please advise. documented in this encounter Plan of Treatment Upcoming Encounters Date Type Department Care Team (Late st Contact Info) Description 03/01/2023 1:40 PM EST Office Visit Pharmacy, [place] [address] [place] [address] [place], [facility] [address] [place] [address] 03/05/2023 9:45 AM EST Cardiac Studies Cardiology, [facility] [address] [facility] [address] [facility] [address] [facility] [address] 03/09/2023 11:40 AM EST Office Visit Family Practice, [place] [address] [place] [facility] [place] [address] Jeremiah Foster MD [address] [place] [address] Health Maintenance Due Date Last Done Comments DISCUSS TOBACCO CESSATION (REFER TO SMARTSET #3298) 1965 DXA Scan 1965 COVID-19 Vaccine (#1) [...] filedocumented as of this encounter Care Teams Latin Teacher Relationship Specialty Start Date End Date Jeremiah Foster MD [address] [place] [address] PCP - General 05/28/00 documented as of this encounter
--- OUTSIDE RECORDS SUMMARY | 2023-04-11 14:53 | External Medical Summary | Summary of Care ---
Author Name Unknown Organization [facility] Address [address] [place] [address] Phone [phone] Care Team Providers Care Journeyman Pipe Welder Name Role Phone Jeremiah Foster MD Primary Care Provider +1- [phone] Encounter Details Date Type Department Care Team (Late st Contact Info) Description 02/19/2023 Telephone [facility] [address] [place] [address] Jeremiah Foster MD [address] [place] [address] Allergies Active Allergy Reactions Criticality [...] Start Date End Date Status ONE TOUCH [employer] SYSTEM KIT KITIndications:DM type 2, goal A1c below 7 as directed. DX: 250.00 1 0 08/02/2006 Active [place] 3-6-9 Fatty Acids (OMEGA 3-6-9 COMPLEX) Capsule Take 1 Cap by mouth daily. 0 Active Unifine Pentips 31G X 8 MM (Insulin Pen Needle)Indications:T ype 1 diabetes mellitus with hemoglobin A1c goal of less than 7.0% ([facility]) USE TO INJECT LANTUS AND NOVOLOG 5 times a day Dx E11.29 500 Each 2 11/26/2021 Active OneTouch Ultra Blue In Vitro Strip (Glucose Blood) USE TO CHECK BLOOD SUGARS 4 TIMES PER DAY DIRECTED FOR INSULIN REQUIRING DIABETIC. Dx E11.29 400 Strip 1 11/26/2021 Active B Complex 100 TR Oral Tablet Extended Release Take by mouth . 0 Active Jorzyqd-Blvtpxvil-Xi nc 333-133-5 MG Oral Tablet Take by mouth . 0 Active OneTouch Delica Lancets 33G USE TO CHECK BLOOD SUGARS 4 TIMES PER DAY DIRECTED FOR INSULIN REQUIRING DIABETIC. Dx E11.29 400 Each 1 07/27/2022 Active Insulin Glargine 100 UNIT/ML Subcutaneous Solution Pen-injector (Lantus)Indications: DM type 2 causing renal disease, not at goal ([facility]) Inject 60 units once daily 60 [...] Tablet 3 09/01/2022 Active OneTouch Delica Plus [id number] USE TO CHECK BLOOD SUGARS 4 TIMES [...] Tablet Sublingual (Nitrostat)Indicatio ns:Coronary artery disease involving [place] coronary artery of [...] coronary artery 04/27/2012 Overview: 03/28/2012 at [facility] Dyslipidemia, goal LDL below 70 [...] encounter Miscellaneous Notes * Telephone Encounter - Oz Barkley MD - 02/22/2023 3:23 PM EST Would she like to go to see PT outpt ? * Telephone Encounter - Kavya Ricardo OSA - 02/22/2023 2:52 PM EST [facility] called in to state they received home care referral for physical therapy, due to health plan not covering home health services cannot be rendered. * Telephone Encounter - Roxana Singh OSA - 02/22/2023 2:13 PM EST Refaxed all info to [facility]. 02/22/2023 * Telephone Encounter - Blanca Rendon OSA - 02/19/2023 1:35 PM EDT [facility] care received referral for this patient, however they are not PAR with the [employer] insuranceand will not be able to take this patient on. Please advise. documented in this encounter Plan of Treatment Upcoming Encounters Date Type Department Care Team (Late st Contact Info) Description 03/01/2023 1:40 PM EST Office Visit Pharmacy, [place] [address] [facility] [address] [place], [facility] [address] [place] [facility] [place] [address] 03/05/2023 9:45 AM EST Cardiac Studies Cardiology, [facility] [address] [facility] [place] [address] [place] [address] [place] [address] 03/09/2023 11:40 AM EST Office Visit Family Practice, [place] [address] [facility] [address] Jeremiah Foster MD [address] [place] [address] Health Maintenance Due Date Last Done Comments DISCUSS TOBACCO CESSATION (REFER TO SMARTSET #4689) 1965 DXA Scan 1965 COVID-19 Vaccine (#1) [...] filedocumented as of this encounter Care Teams Journeyman Pipe Welder Relationship Specialty Start Date End Date Jeremiah Foster MD [address] [place] [address] PCP - General 05/28/00 documented as of this encounter
--- OUTSIDE RECORDS SUMMARY | 2023-04-11 14:53 | External Medical Summary | Summary of Care ---
Author Name Unknown Organization [facility] Address [address] [place] [address] Phone [phone] Care Team Providers Care Agronomy Teacher Name Role Phone Jeremiah Foster MD Primary Care Provider +1- [phone] Encounter Details Date Type Department Care Team (Late st Contact Info) Description 09/10/2022 Population Health External Data Unspecified Department Allergies [...] directed. DX: 250.00 1 0 08/02/2006 Active [place] 3-6-9 Fatty Acids (OMEGA 3-6-9 COMPLEX) Capsule Take 1 Cap by mouth daily. 0 Active Unifine Pentips 31G X 8 MM (Insulin Pen Needle)Indications:T ype 1 diabetes mellitus with hemoglobin A1c goal of less than 7.0% ([facility]) USE TO INJECT LANTUS AND NOVOLOG 5 times a day Dx E11.29 500 Each 2 11/26/2021 Active OneTouch Ultra Blue In Vitro Strip (Glucose Blood) USE TO CHECK BLOOD SUGARS 4 TIMES PER DAY DIRECTED FOR INSULIN REQUIRING DIABETIC. Dx E11.29 400 Strip 1 11/26/2021 Active B Complex 100 TR Oral Tablet Extended Release Take by mouth . 0 Active Mahyhvu-Ndtpcddwt-Ca nc 333-133-5 MG Oral Tablet Take by mouth . 0 Active OneTouch Delica Lancets 33G USE TO CHECK BLOOD SUGARS 4 TIMES PER DAY DIRECTED FOR INSULIN REQUIRING DIABETIC. Dx E11.29 400 Each 1 07/27/2022 Active Insulin Glargine 100 UNIT/ML Subcutaneous Solution Pen-injector (Lantus)Indications: DM type 2 causing renal disease, not at goal ([facility]) Inject 60 units once daily 60 [...] Tablet 3 09/01/2022 Active OneTouch Delica Plus [id number] USE TO CHECK BLOOD SUGARS 4 TIMES [...] Aerosol (Dulera)Indications: COPD, severity to be determined ([facility]) INHALE 2 PUFFS BY MOUTH TWO [...] Tablet Sublingual (Nitrostat)Indicatio ns:Coronary artery disease involving [place] coronary artery of [place] heart without angina pectoris DISSOLVE 1 TABLET [...] disorder) 09/06/2012 Coronary artery disease invo lving [place] coronary artery of [place] heart without angina pectoris 04/27/2012 Presence of drug coated stent in right coronary artery 04/27/2012 Overview: 03/28/2012 at [facility] Dyslipidemia, goal LDL below 70 04/27/2012 Tobacco [...] 03/01/2023 1:40 PM EST Office Visit Pharmacy, [place] [address] [place] [facility] [place] [address] [place] [facility] [address] [place] [facility] [place] [address] 03/05/2023 9:45 AM EST Cardiac Studies Cardiology, [facility] [address] [place] [address] [place], [facility] [address] [place] [address] 03/09/2023 11:40 AM EST Office Visit Family Practice, [place] [address] [place] [facility] [place] [place] [id number] Jeremiah Foster MD [address] [place] [address] Health Maintenance Due Date Last Done Comments DISCUSS TOBACCO CESSATION (REFER TO SMARTSET #7102) 1965 DXA Scan 1965 COVID-19 Vaccine (#1) [...] 08/19/2021, Additional history exists Mammogram 09/02/2023 09/01/2022, 2 12/2018, 05/22/2013, Additional history exists GFR 01/20/2024 01/19/2023, 2 , 12/26/2021, Additional history exists Diabetic Eye Exam [...] filedocumented as of this encounter Care Teams Agronomy Teacher Relationship Specialty Start Date End Date Jeremiah Foster MD [address] [place] [facility] [place] [address] PCP - General 05/28/00 documented as of this encounter
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
--- OUTSIDE RECORDS SUMMARY | 2023-04-11 14:53 | External Medical Summary ---
Author Name Unknown Address Unknown Organization K01:[facility] [place] [address] [place] [address] Laboratory Report Ordering Provider Test Date Status IVET DOYLE 03/09/2023 12:31:08 Final Observation Date Value Abnormality Reference (Units ) Status Vitamin B12 03/09/2023 12:31:08 [phone] (pg/mL) Final Performing Location [facility] - [address] [place] [address]
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
--- OUTSIDE RECORDS SUMMARY | 2023-04-11 14:53 | External Medical Summary | Summary of Care ---
Author Name Unknown Organization [facility] Address [address] [place] [address] Phone [phone] Care Team Providers Care Cut Off Saw Tender Metal Name Role Phone Jeremiah Foster MD Primary Care Provider [phone]- [phone] Encounter Details Date Type Department Care Team (Late st Contact Info) Description 02/19/2023 Telephone [facility] [address] [place] [address] Jeremiah Foster MD [address] [place] [address] Allergies Active Allergy Reactions Criticality [...] Start Date End Date Status ONE TOUCH GetApp SYSTEM KIT KITIndications:DM type 2, goal A1c below 7 as directed. DX: 250.00 1 0 08/02/2006 Active [place] 3-6-9 Fatty Acids (OMEGA 3-6-9 COMPLEX) Capsule Take 1 Cap by mouth daily. 0 Active Unifine Pentips 31G X 8 MM (Insulin Pen Needle)Indications:T ype 1 diabetes mellitus with hemoglobin A1c goal of less than 7.0% ([facility]) USE TO INJECT LANTUS AND NOVOLOG 5 times a day Dx E11.29 500 Each 2 11/26/2021 Active OneTouch Ultra Blue In Vitro Strip (Glucose Blood) USE TO CHECK BLOOD SUGARS 4 TIMES PER DAY DIRECTED FOR INSULIN REQUIRING DIABETIC. Dx E11.29 400 Strip 1 11/26/2021 Active B Complex 100 TR Oral Tablet Extended Release Take by mouth . 0 Active Jklnkrh-Wxedlxbsj-Up nc 333-133-5 MG Oral Tablet Take by mouth . 0 Active OneTouch Delica Lancets 33G USE TO CHECK BLOOD SUGARS 4 TIMES PER DAY DIRECTED FOR INSULIN REQUIRING DIABETIC. Dx E11.29 400 Each 1 07/27/2022 Active Insulin Glargine 100 UNIT/ML Subcutaneous Solution Pen-injector (Lantus)Indications: DM type 2 causing renal disease, not at goal ([facility]) Inject 60 units once daily 60 mL [...] Tablet 3 09/01/2022 Active OneTouch Delica Plus [id number] USE TO CHECK BLOOD SUGARS 4 TIMES [...] Tablet Sublingual (Nitrostat)Indicatio ns:Coronary artery disease involving [place] coronary artery of [place] heart without angina pectoris DISSOLVE 1 TABLET [...] goal LDL below 70,Coronary artery disease involving [place] heart without angina pectoris, unspecified vessel or [...] disorder) 09/06/2012 Coronary artery disease invo lving [place] coronary artery of [place] heart without angina pectoris 04/27/2012 Presence of drug coated stent in right coronary artery 04/27/2012 Overview: 03/28/2012 at [facility] Dyslipidemia, goal LDL below 70 [...] 02/22/2023) Immunizations Name Administration Dates Next Due Hepatitis [...] 2:13 PM EST Refaxed all info to [facility]. 02/22/2023 * Telephone Encounter - Blanca Rendon OSA - 02/19/2023 1:35 PM EDT [facility] received referral for this patient, however they are not [facility]and will not be able to take this patient on. Please advise. documented in this encounter Plan of Treatment Upcoming Encounters Date Type Department Care Team (Late st Contact Info) Description 03/01/2023 1:40 PM EST Office Visit Pharmacy, [place] [address] [place] [address] [place] [address] [place] [address] 03/05/2023 9:45 AM EST Cardiac Studies Cardiology, [facility] [address] [facility] [place] [address] [facility] [address] [place] [address] 03/09/2023 11:40 AM EST Office Visit [facility] [address] [place] [facility] [place] [id number] Jeremiah Foster MD [address] [place] [address] Health Maintenance Due Date Last Done Comments DISCUSS TOBACCO CESSATION (REFER TO SMARTSET #329) 1965 DXA Scan 1965 COVID-19 Vaccine (#1) [...] filedocumented as of this encounter Care Teams Cut Off Saw Tender Metal Relationship Specialty Start Date End Date Jeremiah Foster MD [address] [place] [address] PCP - General 05/28/00 documented as of this encounter
--- OUTSIDE RECORDS SUMMARY | 2023-04-11 14:53 | External Medical Summary | Summary of Care ---
Author Name Unknown Organization [facility] Address [address] [place] [address] Phone [phone] Care Team Providers Care Scaler Packer Name Role Phone Jeremiah Foster MD Primary Care Provider [phone]- [phone] Reason for Visit * Reason Onset Date Comments Order Request 02/19/2023 Encounter Details Date Type Department Care Team (Late st Contact Info) Description 02/19/2023 Telephone [facility] [address] [place] [address] Jeremiah Foster MD [address] [place] [address] Order Request Allergies Active Allergy Reactions Criticality Noted Date [...] directed. DX: 250.00 1 0 08/02/2006 Active [place] 3-6-9 Fatty Acids (OMEGA 3-6-9 COMPLEX) Capsule Take 1 Cap by mouth daily. 0 Active Unifine Pentips 31G X 8 MM (Insulin Pen Needle)Indications:T ype 1 diabetes mellitus with hemoglobin A1c goal of less than 7.0% ([facility]) USE TO INJECT LANTUS AND NOVOLOG 5 times a day Dx E11.29 500 Each 2 11/26/2021 Active [email or web address] Ultra Blue In Vitro Strip (Glucose Blood) USE TO CHECK BLOOD SUGARS 4 TIMES PER DAY DIRECTED FOR INSULIN REQUIRING DIABETIC. Dx E11.29 400 Strip 1 11/26/2021 Active B Complex 100 TR Oral Tablet Extended Release Take by mouth . 0 Active Kpwvrsj-Evardjwew-Gd nc 333-133-5 MG Oral Tablet Take by [...] Tablet 3 09/01/2022 Active OneTouch Delica Plus [id number] USE TO CHECK BLOOD SUGARS 4 TIMES [...] right coronary artery 04/27/2012 Overview: 03/28/2012 at [facility] Dyslipidemia, goal LDL below 70 04/27/2012 [...] encounter Miscellaneous Notes * Telephone Encounter - Soumya Stover MED ASSIST - 02/22/2023 3:31 PM EST Pt states last time she did PT through home health she used [facility]. Faxed order. * Telephone Encounter - Oz Barkley MD - 02/22/2023 3:23 PM EST Would she like to go to see PT outpt ? * Telephone Encounter - Kavya Ricardo OSA - 02/22/2023 2:52 PM EST [facility] called in to state they received home care referral for physical therapy, due to health plan not covering home health services cannot be rendered. * Telephone Encounter - Roxana Singh OSA - 02/22/2023 2:13 PM EST Refaxed all info to [facility]. 02/22/2023 * Telephone Encounter - Blanca Rendon OSA - 02/19/2023 1:[address] [facility] received referral for this patient, however they are not PAR with the [facility] insuranceand will not be able to take this patient on. Please advise. documented in this encounter Plan of Treatment Upcoming Encounters Date Type Department Care Team (Late st Contact Info) Description 03/01/2023 1:40 PM EST Office Visit Pharmacy, [place] [address] [place] [address] [place], [facility] [address] [facility] [place] [address] 03/05/2023 9:45 AM EST Cardiac Studies Cardiology, [facility] [address] [facility] [address] [facility] [address] [facility] [place] [address] 03/09/2023 11:40 AM EST Office Visit Family Practice, [place] [address] [place] [phone] Jeremiah Foster [facility] [address] [facility] [place] [address] Health Maintenance Due Date Last Done Comments DISCUSS TOBACCO CESSATION (REFER TO SMARTSET #6270) 1965 DXA Scan 1965 COVID-19 Vaccine (#1) [...] filedocumented as of this encounter Care Teams Scaler Packer Relationship Specialty Start Date End Date Jeremiah Foster MD [address] [facility] [place] [id number] PCP - General 05/28/00 documented as of this encounter
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
--- OUTSIDE RECORDS SUMMARY | 2023-04-11 14:54 | External Medical Summary | Summary of Care ---
Author Name Unknown Organization [facility] Address [address] [place] [address] Phone [phone] Care Team Providers Care Burglar Alarm Installer Name Role Phone Jeremiah Foster MD Primary Care Provider [phone] Reason for Visit * Reason Onset Date Comments Information 01/29/2023 Encounter Details Date Type Department Care Team (Late st Contact Info) Description 01/29/2023 Telephone Cardiology, [facility] [address] [place] [id number] Cristal Godfrey PA-C [address] [facility], [place] [phone] Information Allergies Active Allergy Reactions Criticality Noted Date [...] as of this encounter (statuses as of 02/12/2023) Medications Medication Sig Dispensed Refills Start Date End Date Status ONE TOUCH ULTRA SYSTEM KIT KITIndications:DM type 2, goal A1c below 7 as directed. DX: 250.00 1 0 08/02/2006 Active [place] 3-6-9 Fatty Acids ([place] 3-6-9 COMPLEX) Capsule Take 1 Cap by mouth daily. 0 Active Unifine Pentips 31G X 8 MM (Insulin Pen Needle)Indications:T ype 1 diabetes mellitus with hemoglobin A1c goal of less than 7.0% ([facility]) USE TO INJECT LANTUS AND NOVOLOG 5 times a day Dx E11.29 500 Each 2 11/26/2021 Active OneTouch Ultra Blue In Vitro Strip (Glucose Blood) USE TO CHECK BLOOD SUGARS 4 TIMES PER DAY DIRECTED FOR INSULIN REQUIRING DIABETIC. Dx E11.29 400 Strip 1 11/26/2021 Active B Complex 100 TR Oral Tablet Extended Release Take by mouth . 0 Active Rbnbejb-Dpqialwlx-Dq nc 333-133-5 MG Oral Tablet Take by mouth . 0 Active OneTouch Delica Lancets 33G USE TO CHECK BLOOD SUGARS 4 TIMES PER DAY DIRECTED FOR INSULIN REQUIRING DIABETIC. Dx E11.29 400 Each 1 07/27/2022 Active Insulin Glargine 100 UNIT/ML Subcutaneous Solution Pen-injector (Lantus)Indications: DM type 2 causing renal disease, not at goal ([facility]) Inject 60 units once daily 60 mL [...] the morning. 90 Tablet 3 09/01/2022 Active Isosorbide Mononitrate ER 30 MG Oral Tablet Extended Release 24 Hour (Imdur) Take 1 Tablet by mouth in the morning. 0 Active Aspirin 81 MG Oral Tablet Delayed Release Take 1 Tablet by mouth in the morning. 0 Active Metoprolol Succinate ER 50 MG Oral Tablet Extended Release 24 Hour (toPROL XL) Take 1.5 Tablets by mouth in the morning. 30 Tablet 5 09/02/2022 Active Nicotine 21 MG/24HR Transdermal Patch 24 Hour (Nicoderm CQ)Indications:Tobac co use disorder Place 1 Patch over 24 hours topically on the skin in the morning. On upper body/upper arm, change once a day for 6 weeks.. 42 Patch 0 09/16/2022 Active Additional Information Patient not taking.Reported on 01/19/2023 OneTouch Delica Plus [id number] USE TO CHECK BLOOD SUGARS 4 TIMES [...] BEDTIME 180 Tablet 3 07/27/2022 4 Active Lantus SoloStar 100 UNIT/ML Subcutaneous Solution Pen-injector INJECT 60 UNITS UNDER THE SKIN ONCE DAILY 60 mL 0 07/27/2022 4 Active Albuterol Sulfate HFA 108 [...] Tablet Sublingual (Nitrostat)Indicatio ns:Coronary artery disease involving [place] coronary artery of [place] heart without angina pectoris DISSOLVE 1 TABLET UNDER TONGUE EVERY 5 MINUTES NEEDED FOR CHEST PAIN. UP TO 3 DOSES IN 15 MINUTES. 100 Tablet 1 07/27/2022 4 Active Fenofibrate 48 MG Oral Tablet (Tricor)Indications: Dyslipidemia, goal LDL below 70,CAD (coronary artery disease),Tobacco use disorder,HTN, goal below 130/80,S/P angioplasty with stent TAKE ONE TABLET BY MOUTH EVERY MORNING 90 Tablet 1 07/27/2022 4 Active Lisinopril 2.5 MG Oral Tablet (Prinivil) TAKE ONE TABLET BY MOUTH EVERY MORNING 90 Tablet 1 07/27/2022 4 Active Empagliflozin 25 MG Oral Tablet (Jardiance) TAKE ONE TABLET BY MOUTH EVERY MORNING 90 Tablet 0 07/27/2022 4 Active Furosemide 20 MG Oral Tablet (Lasix) Take 1 tablet by mouth 2 days per week (Wednesday, ). May take an additional tablet if needed for worsening shortness of breath, fluid retention, weight gain. 30 Tablet 5 01/19/2023 Active documented as of this encounter (statuses as of 02/12/2023) Active Problems Problem Noted Date Diagnosed Date HFrEF (heart failure with reduced ejection fract [...] disorder) 09/06/2012 Coronary artery disease invo lving [place] coronary artery of [place] heart without angina pectoris 04/27/2012 Presence of [...] as of this encounter (statuses as of 02/12/2023) Resolved Problems Problem Noted Date Diagnosed Date [...] DIAB NEURO MANIF ADULT 09/19 PURE HYPERCHOLESTEROLEM /11/2008 Overview: Per Lipid Taxonomy. BENIGN HYPERTENSION 02/23/20 Overview: Modified per HTN Taxonomy. Major depressive disorder Overview: ICD-10 update of inactive term Encounter for long-term (cur rent) use of medications 07/02/2005 Overview: ICD-10 update of inactive term documented as of this encounter (statuses as of 02/12/2023) Immunizations Name Administration Dates Next Due Hepatitis [...] drink = 0.6 oz pur e alcohol) Sex and Gender Information Value Date Recorded Sex Assigned at Female 08/17/2018 3:32 PM EDT Gender Identity Female 08/17/2018 3:32 PM EDT Sexual Orientation Straight 08/17/2018 3: 32 PM EDT Job Start Date Occupation Industry Not on file Not on file Not on file documented as of this encounter Miscellaneous Notes * Telephone Encounter - Syl Barry LPN - 02/12/2023 3:29 PM EDT Voice mail full. Sent letter * Telephone Encounter - Syl Barry LPN - 02/08/2023 4:22 PM EDT Attempted pt by phone, voice mail is full. * Telephone Encounter - Abbie Michelle LPN - 01/29/2023 1:22 PM EDT Attempt to call patient unsuccessful; unable to leave as mailbox was full. Can attempt call again at a later time. Upon return call please advise of results and recommendations. * Telephone Encounter - Abbie Michelle LPN - 01/29/2023 1:22 PM EDT ----- Message from Cristal Godfrey PA-C sent at 01/25/2023 2:28 PM EDT ----- Triglycerides significantly elevated, likely due to elevated glucose readings as well. UncontrolledDM Needs to have MTM clinic referral for DM and cardio MTM for lipids (if not already established) Is she taking Crestor 40 mg daily? Potassium was elevated Verify NO potassium supplements. No Salt substitutes No MVI with potassium. Continue furosemide 20 mg and increase to 5 days per week Repeat FASTING BMP this week documented in this encounter Plan of Treatment Upcoming Encounters Date Type Department Care Team (Late st Contact Info) Description 03/05/2023 9:45 AM EST Cardiac Studies Cardiology, [facility] [address] [place] [phone] [place] [address] [place] [phone] 03/09/2023 11:40 AM EST Office Visit [facility] [address] [place] [address] Jeremiah Foster MD [address] [place] [address] Scheduled Orders Name Type Priority Associated Diagnoses Orde r Schedule BASIC METABOLIC PANEL Lab Routine Dyslipidemia, goal LDL below 70 Coronary artery disease involving [place] coronary artery of [place] heart without angina pectoris Ventricular tachycardia, sustained (HCC) HTN, goal below 130/80 HFrEF (heart failure with reduced ejection fraction) (HCC) Expected: 02/13/2023 (Approximate), Expires: 02/13/2024 Health Maintenance Due Date Last Done Comments DISCUSS TOBACCO CESSATION (REFER TO SMARTSET #[id number]) 1965 DXA Scan 1965 COVID-19 Vaccine (#1) [...] as of this encounter Visit Diagnoses Diagnosis HFrEF (heart failure with reduced ejection fraction) (HCC)- Primary Dyslipidemia, goal LDL below 70 Other and unspecified hyperlipidemia Coronary artery disease involving [place] coronary artery of [place] heart without angina pectoris Ventricular tachycardia, sustained (HCC) Paroxysmal ventricular tachycardia HTN, goal below 130/80 Unspecified essential hypertension documented in this encounter Care Teams Burglar Alarm Installer Relationship Specialty Start Date End Date Jeremiah Foster MD [address], [place] [phone] PCP - General 05/28/00 documented as of this encounter
--- OUTSIDE RECORDS SUMMARY | 2023-04-11 14:54 | External Medical Summary ---
Author Name Unknown Address Unknown Organization K01:[facility] - [address] [facility] [address] [facility] [address] Laboratory Report Ordering Provider Test Date Status AUGUSTUS BAILEY 01/19/2023 11:47:00 Final Observation Date Value Abnormality Reference (Units ) Status Magnesium 01/19/2023 11:47:00 2.1 1.5-2.6 (m g/dL) Final Performing Location [facility] - [address] [facility] [address]
--- OUTSIDE RECORDS SUMMARY | 2023-04-11 14:54 | External Medical Summary | Summary of Care ---
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 morning. 30 Tablet 0 OneTouch Delica Plus [id number] USE TO CHECK BLOOD SUGARS 4 TIMES [...] 1 Tablet before bedtime. 90 Tablet 5 Citalopram Hydrobromide 40 MG Oral Tablet (CeleXA) Take 1 Tablet by mouth in the morning. 90 Tablet3 No current facility-administered medications for this visit. Past Medical History: Diagnosis Date Anxiety state Anxiety State CAD (coronary artery disease) 04/27/2012 Cervical cancer (HCC) Cervical Cervical cancer (HCC) 1985 Depressive disorder, not elsewhere classified Depression DM type 2 causing neurological disease (HCC) Diabetic Neuropathy DM type 2, not at goal (HCC) Diabetes Type II, Uncontrolled Dyslipidemia, goal LDL below 160 Hypercholesterolemia High triglycerides Hypertriglyceidemia HTN, goal below 140/90 Hypertension Benign Panic disorder Presence of drug coated stent in right coronary artery 04/27/2012 03/28/2012 at [facility] Sarcoidosis 2009 Past Surgical History: Procedure Laterality [...] hands when cleaning out their cage. Mold Family History Problem Relation Age of Onset Heart Disorder Mother Diabetes Mother Gastro-intestinal disorder Mother liver damage from Rezulin ADD / ADHD Daughter ADHD OCD Daughter Asthma Daughter Asthma Aunt (Unspecified) maternal Breast Cancer No significant family history Family Status Relation Status Mo Alive Fa Luna Alive in Foster care since summer 1999 Luna Alive Son Alive AUNT (Not Specified) No history (Not Specified) Social History Socioeconomic History Marital status: Spouse name: Not on file Number of children: 3 Years of education: Not on file Highest education level: Not on file Occupational History 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, [facility]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 [facility] [employer] [employer] 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, [employer] 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 Tobacco Use Smoking status: Every Day Packs/day: 0.50 Years: 5.00 Additional pack years: 0.00 Total pack years: 2.50 Types: Cigarettes Smokeless tobacco: Never Tobacco comments: passive smoke from daughters and visitors Substance and Sexual Activity Alcohol use: No Drug use: No Sexual activity: Yes Partners: Male control/protection: Surgical Comment: TAO/BSO Other Topics Concern Service Not Asked Blood Transfusions Not Asked Caffeine Concern Not Asked Occupational Exposure Not Asked Hobby Hazards Not Asked Sleep Concern Not Asked Stress Concern Not Asked Weight Concern Not Asked Special Diet Not Asked Back Care Not Asked Exercise Not Asked Bike Helmet Not Asked Seat Belt Not Asked Self-Exams Not Asked Social History Narrative [facility] INFORMATION ENVIRONMENTAL HISTORY: Type of Home: Apartment - floor level 2nd Type of Heating System: Electric Air Conditioning: Yes Patient's bedroom Basement: None Home have cockroaches: No Irritants in the home: Scented Candles, Scented air fresheners and Potpourri Patient's bedroom location: Floor: second Type of avelino: Carpeting Beds: Number: 1 Type of beds: Mattress and Box spring Pillows: Number: 4 Type of pillows: Synthetic (hypoallergenic, polyester) Bedroom contains: Collectibles (knicknacks) Pets: 4 parakeet bird(s) Lives on a farm: No 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 Entered by: Tin Schmitt MD 06/07/2008 Daughter in Foster Care, age 14 yrs. ADHD and OCD. There for 7 months. Stays with Sandy on weekends. May come home at the end of the school year. Lives with twin children, age 16 years. Boyfriend visits, doesn't stay overnight. Social Determinants of Health Financial Resource Strain: Not on file Food Insecurity: No Food Insecurity (12/14/2018) Hunger Vital Sign Worried About Running Out of Food in the Last Year: Never true Ran Out of Food in the Last Year: Never true Transportation Needs: Not on file Physical Activity: Not on file Stress: Not on file Social Connections: Not on file Intimate Partner Violence: Not on file Housing Stability: Not on file Review of Systems Constitutional: Positive for activity change and fatigue. Negative for appetite change, chills, diaphoresis, fever and unexpected weight change. HENT: Negative for hearing loss. Eyes: Negative for visual disturbance. Respiratory: Negative for cough, chest tightness, shortness of breath and wheezing. Cardiovascular: Negative for chest pain, palpitations and leg swelling. Gastrointestinal: Negative for abdominal distention, abdominal pain, nausea and vomiting. Endocrine: Negative. Negative for cold intolerance, heat intolerance, polydipsia, polyphagia and polyuria. Genitourinary: Negative for dysuria. Musculoskeletal: Positive for arthralgias, back pain and neck stiffness. Negative for neck pain. Skin: Negative for color change, pallor and rash. Neurological: Positive for dizziness (occ), speech difficulty (chronic) and numbness. Negative for tremors, syncope (no recent episode), facial asymmetry, weakness and headaches. Psychiatric/Behavioral: Positive for dysphoric mood and sleep disturbance. Negative for agitation, behavioral problems and hallucinations. The patient is nervous/anxious. The patient is not hyperactive. Possible mild memory problem Objective BP 136/80 | Pulse 85 | Temp 35.9 C (96.7 F) | Wt 75.6 kg (166 lb 11.2 oz) | SpO2 96% | BMI 29.53 kg/m | BSA 1.83 m Physical Exam Constitutional: General: She is not in acute distress. Appearance: Normal appearance. She is not ill-appearing, toxic-appearing or diaphoretic. HENT: Head: Normocephalic and atraumatic. Nose: Nose normal. Eyes: Extraocular Movements: Extraocular movements intact. Cardiovascular: Rate and Rhythm: Normal rate and regular rhythm. Pulses: Normal pulses. Heart sounds: Normal heart sounds. Pulmonary: Effort: Pulmonary effort is normal. No respiratory distress. Breath sounds: No stridor. No wheezing, rhonchi or rales. Chest: Chest wall: No tenderness. Abdominal: Palpations: Abdomen is soft. Musculoskeletal: General: Tenderness present. Cervical back: No tenderness. Right lower leg: No edema. Left lower leg: No edema. Neurological: General: No focal deficit present. Mental Status: She is alert and oriented to person, place, and time. Cranial Nerves: No cranial nerve deficit. Psychiatric: Behavior: Behavior normal. Comments: Anxiety ASSESSMENT/PLAN: Pain in both upper extremities (Primary) - [facility] REFERRAL OP - XR C SPINE 4-5 VIEWS DM type 2 nursing care encounter (HCC) - DIABETES FOOT EXAM - TELEMEDICINE DIABETIC EYE Bilateral hand numbness - [facility] REFERRAL OP - XR C SPINE 4-5 VIEWS Dyslipidemia, goal LDL below 70 - Fenofibrate 48 MG Oral Tablet (Tricor); Take 1 Tablet by mouth in the morning. TAKE ONE TABLET BYMOUTH EVERY MORNING. CAD (coronary artery disease) - Fenofibrate 48 MG Oral Tablet (Tricor); Take 1 Tablet by mouth in the morning. TAKE ONE TABLET BYMOUTH EVERY MORNING. Tobacco use disorder - Fenofibrate 48 MG Oral Tablet (Tricor); Take 1 Tablet by mouth in the morning. TAKE ONE TABLET BYMOUTH EVERY MORNING. HTN, goal below 130/80 - Fenofibrate 48 MG Oral Tablet (Tricor); Take 1 Tablet by mouth in the morning. TAKE ONE TABLET BYMOUTH EVERY MORNING. S/P angioplasty with stent - Fenofibrate 48 MG Oral Tablet (Tricor); Take 1 Tablet by mouth in the morning. TAKE ONE TABLET BYMOUTH EVERY MORNING. Type 2 diabetes mellitus with hemoglobin A1c goal of less than 7.0% ([facility]) - ENDOCRINOLOGY REFERRAL OP - PHARMACIST MEDS THERAPY MGMT REFERRAL OP Insulin dependent type 2 diabetes mellitus ([facility]) - ENDOCRINOLOGY REFERRAL OP - PHARMACIST MEDS THERAPY MGMT REFERRAL OP Hypertensive heart disease with heart failure ([facility]) HFrEF (heart failure with reduced ejection fraction) (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) Other orders - Empagliflozin 25 MG Oral Tablet (Jardiance); Take 1 Tablet by mouth in the morning. - Metoprolol Succinate ER 50 MG Oral Tablet Extended Release 24 Hour (toPROL XL); Take 1.5 Tablets by mouth in the morning. - Isosorbide Mononitrate ER 30 MG Oral Tablet Extended Release 24 Hour (Imdur); Take 1 Tablet by mouth in the morning. - Aspirin 81 MG Oral Tablet Delayed Release; Take 1 Tablet by mouth in the morning. - Lisinopril 2.5 MG Oral Tablet (Prinivil); Take 1 Tablet by mouth in the morning. - Lantus SoloStar 100 UNIT/ML Subcutaneous Solution Pen-injector; Inject 60 Units under the skin every evening. INJECT 60 UNITS UNDER THE SKIN ONCE DAILY - Furosemide 20 MG Oral Tablet (Lasix); Take 1 tablet by mouth 2 days per week (Wednesday, ). May take an additional tablet if needed for worsening shortness of breath, fluid retention, weight gain.Take 1 tablet by mouth 2 days per week (Wednesday, ). May take an additional tablet if needed for worsening shortness of breath, fluid retention, weight gain. - Baclofen 10 MG Oral Tablet (Lioresal); Take 1 Tablet by mouth in the morning and 1 Tablet at noonand 1 Tablet before bedtime. Check-out note: Please keep 40 min appointment if possible with PCP Refilled meds [facility] for neck exercise Meds Resume Referral for DM F/u with PCP Oz Barkley MD * Virginia Edwards LPN - 02/18/2023 3:48 PM EDT DM Foot Exam completed today. Provider aware. Virginia Edwards LPN Socks and Shoes Removed for Annual Diabetic Foot Screening The importance of having a yearly diabetic eye exam has been discussed with patient. Order and/or Referral placed along with patient instructions. Provider made aware. Virginia Edwards LPN documented in this encounter Plan of Treatment Upcoming Encounters Date Type Department Care Team (Late st Contact Info) Description 03/01/2023 1:40 PM EST Office Visit Pharmacy, [place] [address] [place] [address] [facility] [address], [place] [id number] 03/05/2023 9:45 AM EST Cardiac Studies Cardiology, [facility] [address] [place] [address] [facility] [address] [place] [address] 03/09/2023 11:40 AM EST Office Visit [facility] [address] [place] [id number] Jeremiah Foster MD [address], [place] [id number] Scheduled Orders Name Type Priority Associated Diagnoses Orde r Schedule XR C SPINE 4-5 VIEWS Medical Imaging Routine Pain in both upper extremities Bilateral hand numbness Ordered: 02/18/2023 Scheduled Referrals Name Type Priority Associated Diagnoses Order Schedule HOME HEALTH REFERRAL OP Referral Within 1 0 days (routine) Pain in both upper extremities Bilateral hand numbness Ordered: 02/18/2023 ENDOCRINOLOGY REFERRAL OP Referral Within 10 days (routine) Type 2 diabetes mellitus with hemoglobin A1c goal of less than 7.0% (HCC) Insulin dependent type 2 diabetes mellitus (HCC) Ordered: 02/18/2023 PHARMACIST MEDS THERAPY MGMT REFERRAL OP Referral Within 10 days (routine) Type 2 diabetes mellitus with hemoglobin A1c goal of less than 7.0% (HCC) Insulin dependent type 2 diabetes mellitus (HCC) Ordered: 02/18/2023 Health Maintenance Due Date Last Done Comments DISCUSS TOBACCO CESSATION (REFER TO SMARTSET #[id number]) 1965 DXA Scan 1965 COVID-19 Vaccine (#1) [...] IN PAST YEAR FOR COPD 01/20/2024 01/19/2023 Diabetic Eye Exam 02/19/2024 02/18/2023, , 03/10/2013, Additional history exists Diabetic Foot Exam 02/19/2024 02/18/2023, 1 04/24/2018, 12/30/2017, Additional history exists GARDASIL-HPV IMMUNIZATION SERIES Aged Out No longer eligible based on patient's age to complete this topic MENINGOCOCCAL (MENACTRA/MENVEO) Aged Out No longer eligible based on patient's age to complete this topic documented as of this encounter Medical Devices Not on filedocumented as of this encounter Procedures Procedure Name Priority Date/Time Associated Diagnosis Comments TELEMEDICINE DIABETIC EYE Routine 02/18/2023 DM type 2 nursing care encounter (HCC) documented in this encounter Results * TELEMEDICINE DIABETIC EYE (02/18/2023) 02/18/2023 Oz Barkley MD DIGITAL PHOTOGRAPHY documented in this encounter Visit Diagnoses Diagnosis Pain in both upper extremities- Primary DM type 2 nursing care encounter (HCC) Type II or unspecified type diabetes mellitus without mention of complication, not stated as uncontrolled Bilateral hand numbness Disturbance of skin sensation Dyslipidemia, goal LDL below 70 Other and unspecified hyperlipidemia Coronary artery disease involving [place] heart without angina pectoris, unspecified vessel or lesion type Tobacco use disorder HTN, goal below 130/80 Unspecified essential hypertension S/P angioplasty with stent Postsurgical percutaneous transluminal coronary angioplasty status Type 2 diabetes mellitus with autonomic neuropathy, unspecified whether residential insulin use (HCC) Insulin dependent type 2 diabetes mellitus (HCC) Type II or unspecified type diabetes mellitus without mention of complication, not stated as uncontrolled Hypertensive heart disease with heart failure (HCC) Unspecified hypertensive heart disease with heart failure HFrEF (heart failure with reduced ejection fraction) (HCC) Presence of drug coated stent in right coronary artery Postsurgical percutaneous transluminal coronary angioplasty status documented in this encounter Care Teams Health Educator Relationship Specialty Start Date End Date Jeremiah Foster MD [address] [place] [address] PCP - General 05/28/00 documented as of this encounter"
--- OUTSIDE RECORDS SUMMARY | 2023-04-11 14:54 | External Medical Summary | Summary of Care ---
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 [place] coronary artery of [place] heart without angina pectoris Ventricular tachycardia, sustained (HCC) HTN, goal below 140/90 HFrEF (heart failure with reduced ejection fraction) ([facility]) Expected: 01/19/2023, Expires: 01/20/2024 MAGNESIUM Lab Routine Dyslipidemia, goal LDL below 70 Coronary artery disease involving [place] coronary artery of [place] heart without angina pectoris Ventricular tachycardia, sustained (HCC) HTN, goal below 140/90 HFrEF (heart failure with reduced ejection fraction) ([facility]) Expected: 01/19/2023, Expires: 01/20/2024 LIPID PANEL WITH DIRECT LDL IF TG IS HIGH Lab Routine Dyslipidemia, goal LDL below 70 Coronary artery disease involving [place] coronary artery of [place] heart without angina pectoris Ventricular tachycardia, sustained (HCC) HTN, goal below 140/90 HFrEF (heart failure with reduced ejection fraction) ([facility]) Expected: 01/19/2023, Expires: 01/20/2024 Health Maintenance Due Date Last Done Comments [...] 08/19/2021, Additional history exists Mammogram 09/02/2023 09/01/2022, 07/2 12/2018, 05/22/2013, Additional history exists GFR 11/06/2023 11/05/2022, 12/2021, 08/19/2021, Additional history exists O2 ASSESSMENT COMPLETED IN PAST YEAR FOR COPD 11/06/2023 11/05/2022 GARDASIL-HPV IMMUNIZATION SERIES Aged Out No longer eligible based on patient's age to complete this topic MENINGOCOCCAL (MENACTRA/MENVEO) Aged Out No longer eligible based on patient's age to complete this topic documented as of this encounter Medical Devices Not on filedocumented as of this encounter Visit Diagnoses Diagnosis Coronary artery disease involving sk[place] coronary artery of [place] heart without angina pectoris- Primary Dyslipidemia, goal LDL below 70 Other and unspecified hyperlipidemia Ventricular tachycardia, sustained (HCC) Paroxysmal ventricular tachycardia HTN, goal below 140/90 Unspecified essential hypertension HFrEF (heart failure with reduced ejection fraction) (HCC) Tobacco use disorder documented in this encounter Care Teams Boat Dispatcher Relationship Specialty Start Date End Date Jeremiah Foster MD [address] [place] [place], [place] [id number] PCP - General 05/28/00 documented as of this encounter"
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
--- OUTSIDE RECORDS SUMMARY | 2023-04-11 14:54 | External Medical Summary ---
Author Name Unknown Address Unknown Organization [id number]:[facility] - [address] [facility] [address] Laboratory Report Ordering Provider Test Date Status AUGUSTUS BAILEY 01/19/2023 11:47:00 Final Observation Date Value Abnormality Reference (Units ) Status BUN 01/19/2023 11:47:00 16 6-20 (mg/dL) Final Creatinine 01/19/2023 11:47:00 0.6 0.5-1.0 (mg/dL) Final Glomerular filtration rate/1.73 sq M.predicted [Volume Rate/Area] in Serum, Plasma or Blood by Creatinine-based formula (CKD-EPI) 01/19/2023 11:47:00 >90 >=60 (mL/min) Final eGFR is calculated based on the CKD-EPI 2020 equation SODIUM 01/19/2023 11:47:00 140 135-146 (m mol/L) Final Lipemia removed by ultracent rifugation. Potassium 01/19/2023 11:47:00 5.8 Above high normal 3. 5-5.1 (mmol/L) Final Cl 01/19/2023 11:47:00 98 98-107 (mm ol/L) Final Lipemia removed by ultracent rifugation. CO2 01/19/2023 11:47:00 21 Below low normal 22- 32 (mmol/L) Final Anion gap 01/19/2023 11:47:00 21 Above high normal 7- 15 (mmol/L) Final Glucose 01/19/2023 11:47:00 488 Above high normal 70 -120 (mg/dL) Final Albumin 01/19/2023 11:47:00 4.6 3.8-5.0 (g /dL) Final AST (Aspartate aminotransferase) 01/19/2023 11:47:00 16 10-35 (U/L) Fin al Result may be falsely elevat ed due to hemolysis. Alk Phos 01/19/2023 11:47:00 89 35-130 (U/ L) Final Bilirubin, Total 01/19/2023 11:47:00 0.3 <=1 .2 (mg/dL) Final Calcium 01/19/2023 11:47:00 10.0 8.4-10.2 ( mg/dL) Final Protein 01/19/2023 11:47:00 7.4 6.0-8.3 (g /dL) Final ALT (Alanine aminotransferase) 01/19/2023 11:47:00 16 10-35 (U/L) Final Lipemia removed by ultracent rifugation. Performing Location [facility] - [facility] [address] [facility] [address]
--- OUTSIDE RECORDS SUMMARY | 2023-04-11 14:54 | External Medical Summary ---
Author Name Unknown Address Unknown Organization [id number]:[facility] - [address] [place] [address] Laboratory Report Ordering Provider Test Date Status AUGUSTUS BAILEY 01/19/2023 11:47:00 Final Observation Date Value Abnormality Reference (Units ) Status Triglyceride 01/19/2023 11:47:00 >4425 Above high normal <=174 (mg/dL) Final Triglyceride Reference Range s (mg/dL):
<150 Acceptable
150-174 Borderline high
175-499 High
>=500 Very high Cholesterol 01/19/2023 11:47:00 768 Above high normal <200 (mg/dL) Final Total Cholesterol Reference Ranges (mg/dL):
<200 Desirable
200-239 Borderline high
>=240 High HDL 01/19/2023 11:47:00 9 Below low normal >49 (mg/dL) Final HDL Cholesterol Reference Ra nges (mg/dL):
>=60 High (Desirable)
<50 Low (Undesirable) For Females
<40 Low (Undesirable) For Males NON-HDL CHOLESTEROL 01/19/2023 11:47:00 759 Above high normal <=159 (mg/dL) Final Non-HDL Cholesterol Referenc e Range (mg/dL):
<100 Target level for high risk ASCVD patient
<130 Optimal for general population
130-159 Near optimal for general population
160-189 Borderline High
190-219 High
>=220 Very High Performing Location [facility]ORY [facility] - [address] [place] [address]
--- OUTSIDE RECORDS SUMMARY | 2023-04-11 14:54 | External Medical Summary | Summary of Care ---
Author Name Unknown Organization [facility] Address [address] [place] [address] Phone [phone] Care Team Providers Care Geodetic Survey Director Name Role Phone Jeremiah Foster MD Primary Care Provider +1- [phone] Reason for Visit * Reason Comments Outpatient Testing Encounter Details Date Type Department Care Team Description 01/19/2023 Laboratory Laboratory, [facility] [address] [facility] [address] [facility] [address] [place] [address] Dyslipidemia, goal LDL below 70; Coronary artery disease involving [place] coronary artery of [place]bridge heart without angina pectoris; Ventricular tachycardia, sustained ([facility]); HTN, goal below 140/90; HFrEF (heart failure with reduced ejection fraction) ([facility]) Allergies Active Allergy Reactions Severity Noted Date [...] directed. DX: 250.00 1 0 08/02/2006 Active [place] 3-6-9 Fatty Acids (OMEGA 3-6-9 COMPLEX) Capsule Take 1 Cap by mouth daily. 0 Active Unifine Pentips 31G X 8 MM (Insulin Pen Needle)Indications:T ype 1 diabetes mellitus with hemoglobin A1c goal of less than 7.0% ([facility]) USE TO INJECT LANTUS AND NOVOLOG 5 times a day Dx E11.29 500 Each 2 11/26/2021 Active ESP SystemsTouch Ultra Blue In Vitro Strip (Glucose Blood) USE TO CHECK BLOOD SUGARS 4 TIMES PER DAY DIRECTED FOR INSULIN REQUIRING DIABETIC. Dx E11.29 400 Strip 1 11/26/2021 Active B Complex 100 TR Oral Tablet Extended Release Take by mouth . 0 Active Cnddhzv-Kyptwvfzi-Yd nc 333-133-5 MG Oral Tablet Take by [...] not taking.Reported on 01/19/2023 JovanaTouch Delica Plus [id number] USE TO CHECK BLOOD SUGARS 4 TIMES [...] Tablet Sublingual (Nitrostat)Indicatio ns:Coronary artery disease involving [place] coronary artery of [place] heart without angina pectoris DISSOLVE 1 TABLET [...] of 01/19/2023) Active Problems Problem Noted Date Type 2 [...] stress disorder) Coronary artery disease invo lving stock[place] coronary artery of [place] heart without angina pectoris 04/27/2012 Presence of drug coated stent in right c oronary artery 04/27/2012 Overview: 03/28/2012 at [facility] Dyslipidemia, goal LDL below 70 04/27/19 13 [...] Family Medicine Jeremiah Foster MD [address] [place] [address] Pending Results Name Type Priority Associated Diagnoses Date /Time COMPREHENSIVE METABOLIC PANEL Lab Routine Dyslipidemia, goal LDL below 70 Coronary artery disease involving stock[place] coronary artery of stockbridge heart without angina pectoris Ventricular tachycardia, sustained (HCC) HTN, goal below 140/90 HFrEF (heart failure with reduced ejection fraction) ([facility]) 01/19/2023 11:47 AM EDT MAGNESIUM Lab Routine Dyslipidemia, goal LDL below 70 Coronary artery disease involving stock[place] coronary artery of stockbridge heart without angina pectoris Ventricular tachycardia, sustained (HCC) HTN, goal below 140/90 HFrEF (heart failure with reduced ejection fraction) ([facility]) 01/19/2023 11:47 AM EDT LIPID PANEL WITH DIRECT LDL IF TG IS HIGH Lab Routine Dyslipidemia, goal LDL below 70 Coronary artery disease involving [place] coronary artery of stockbridge heart without angina pectoris Ventricular tachycardia, sustained (HCC) HTN, goal below 140/90 HFrEF (heart failure with reduced ejection fraction) ([facility]) 01/19/2023 11:47 AM EDT Health Maintenance Due Date Last Done Comments DISCUSS TOBACCO CESSATION (REFER TO SMARTSET #1401) 1965 DXA Scan 1965 COVID-19 Vaccine (#1) [...] 05/22/2013, Additional history exists GFR 11/06/2023 11/05/2022, 090 12/2021, 08/19/2021, Additional history exists O2 ASSESSMENT COMPLETED IN PAST YEAR FOR COPD 11/06/2023 11/05/2022 GARDASIL-HPV IMMUNIZATION SERIES Aged Out No longer eligible based on patient's age to complete this topic MENINGOCOCCAL (MENACTRA/MENVEO) Aged Out No longer eligible based on patient's age to complete this topic documented as of this encounter Medical Devices Not on filedocumented as of this encounter Visit Diagnoses Diagnosis Dyslipidemia, goal LDL below 70 Other and unspecified hyperlipidemia Coronary artery disease involving stock[place] coronary artery of stockbridge heart without angina pectoris Ventricular tachycardia, sustained (HCC) Paroxysmal ventricular tachycardia HTN, goal below 140/90 Unspecified essential hypertension HFrEF (heart failure with reduced ejection fraction) (HCC) documented in this encounter Care Teams Geodetic Survey Director Relationship Specialty Start Date End Date Jeremiah Foster MD [address] [place] [address] PCP - General 05/28/00 documented as of this encounter
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
--- OUTSIDE RECORDS SUMMARY | 2023-04-11 14:54 | External Medical Summary | Summary of Care ---
Author Name Unknown Organization [facility] Address [address] [place] [address] Phone [phone] Care Team Providers Care Radio Interference Supervisor Name Role Phone Jeremiah Foster MD Primary Care Provider +1- [phone] Reason for Visit * Reason Onset Date Comments Information 01/29/2023 Encounter Details Date Type Department Care Team (Late st Contact Info) Description 01/29/2023 Telephone Cardiology, [facility] [address] [place] [id number] Cristal Godfrey PA-C [address] [facility] [place] [id number] Information Allergies Active Allergy Reactions Criticality Noted [...] DX: 250.00 1 0 08/02/2006 Active [place] 3-6-9 Fatty Acids (OMEGA 3-6-9 COMPLEX) Capsule [...] Release Take by mouth . 0 Active Voofzhk-Aacbfzfsv-Li nc 333-133-5 MG Oral Tablet Take by [...] not taking.Reported on 01/19/2023 OneTouch Delica Plus [id number] USE TO CHECK BLOOD SUGARS 4 TIMES [...] Tablet Sublingual (Nitrostat)Indicatio ns:Coronary artery disease involving [place] coronary artery of [place] heart without angina pectoris DISSOLVE 1 TABLET [...] disorder) 09/06/2012 Coronary artery disease invo lving [place] coronary artery of [place] heart without angina pectoris 04/27/2012 Presence of drug coated stent in right coronary artery 04/27/2012 Overview: 03/28/2012 at [facility] Dyslipidemia, goal LDL below 70 04/27/2012 [...] 03/05/2023 9:45 AM EST Cardiac Studies Cardiology, [facility] [address] [place] [address] [place] [address] [place] [address] 03/09/2023 11:40 AM EST Office Visit [facility] [address] [place] [address] Jeremiah Foster MD [address] [place] [address] Scheduled Orders Name Type Priority Associated Diagnoses Orde r Schedule BASIC METABOLIC PANEL Lab Routine Dyslipidemia, goal LDL below 70 Coronary artery disease involving [place] coronary artery of [place] heart without angina pectoris Ventricular tachycardia, sustained (HCC) HTN, goal below 130/80 HFrEF (heart failure with reduced ejection fraction) (HCC) Expected: 02/13/2023 (Approximate), Expires: 02/13/2024 Health Maintenance Due Date Last Done Comments DISCUSS TOBACCO CESSATION (REFER TO SMARTSET #2849) 1965 DXA Scan 1965 COVID-19 Vaccine (#1) [...] and unspecified hyperlipidemia Coronary artery disease involving [place] coronary artery of [place] heart without angina pectoris Ventricular tachycardia, sustained (HCC) Paroxysmal ventricular tachycardia HTN, goal below 130/80 Unspecified essential hypertension documented in this encounter Care Teams Radio Interference Supervisor Relationship Specialty Start Date End Date Jeremiah Foster MD [address] [place], [place] [phone] PCP - General 05/28/00 documented as of this encounter
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
--- OUTSIDE RECORDS SUMMARY | 2023-04-11 14:55 | External Medical Summary | Summary of Care ---
Author Name Unknown Organization [facility] Address [address] [place] [address] Phone [phone] Care Team Providers Care Banquet Houseperson Name Role Phone Jeremiah Foster MD Primary Care Provider [phone]- [phone] Reason for Visit * Reason Onset Date Comments Med Request 09/16/2022 Encounter Details Date Type Department Care Team Description 09/16/2022 Safety Clothing And Equipment Developer Telephone [facility] [address] [place] [address] Elvia Michelle RN [address] [place] [address] Med Request Allergies Active Allergy Reactions Severity Noted Date [...] as of this encounter (statuses as of 11/30/2022) Medications Medication Sig Dispensed Refills Start Date End Date Status ONE TOUCH [employer] SYSTEM KIT KITIndications:DM type 2, goal A1c below 7 as directed. DX: 250.00 1 0 7 Active [place] 3-6-9 Fatty Acids (OMEGA 3-6-9 COMPLEX) Capsule Take 1 Cap by mouth daily. 0 Active diphenhydrAMINE-AP AP (sleep) 25-500 MG Oral Tablet Take 1 Tab by mouth daily as needed for Sleep (or pain). 0 Active Unifine Pentips 31G X 8 MM (Insulin Pen Needle)Indications :Type 1 diabetes mellitus with hemoglobin A1c goal of less than 7.0% ([facility]) USE TO INJECT LANTUS AND NOVOLOG 5 [...] renal disease, not at goal ([facility]) Inject 60 units once daily 60 mL [...] the morning. 30 Tablet 0 3 Active Ondansetron HCl 4 MG Oral Tablet (Zofran) Take 1 Tablet by mouth every 8 hours as needed for Nausea. 20 Tablet 0 3 Active Citalopram Hydrobromide 40 [...] in the morning. 30 Tablet 5 3 Active Nicotine 21 MG/24HR Transdermal Patch 24 Hour (Nicoderm CQ)Indications:Tob acco use disorder Place 1 Patch over 24 hours topically on the skin in the morning. On upper body/upper arm, change once a day for 6 weeks.. 42 Patch 0 3 Active Nitroglycerin 0.4 MG Sublingual Tablet Sublingual (Nitrostat)Indicat ions:Coronary artery disease involving [place] coronary artery of [place] heart without angina pectoris DISSOLVE 1 TABLET UNDER THE TONGUE EVERY 5 MINUTES NEEDED FOR CHEST PAIN. UP TO 3 DOSES IN 15 MINUTES. 100 Tablet 1 3 07/28/19 23 Discontinued(Leg acy prescription brought in as discontinued) Mirtazapine 15 MG Oral Tablet (Remeron) TAKE 1/2 A TABLET BY MOUTH AT BEDTIME 45 Tablet 3 3 07/28/19 Discontinued(Leg acy prescription brought in as discontinued) metFORMIN HCl ER 500 MG Oral Tablet Extended Release 24 Hour (Glucophage XR)Indications:DM type 2 causing renal disease, not at goal (HCC) TAKE TWO TABLETS BY MOUTH TWO TIMES A DAY 360 Tablet 0 3 07/28/19 23 Discontinued(Leg acy prescription brought in as discontinued) Lisinopril 2.5 MG Oral Tablet (Prinivil) Take 1 Tablet by mouth in the morning. 90 Tablet 1 3 07/28/19 23 Discontinued(Leg acy prescription brought in as discontinued) Fenofibrate 48 MG Oral Tablet (Tricor)Indication s:Dyslipidemia, goal LDL below 70,CAD (coronary artery disease),Tobacco use disorder,HTN, goal below 130/80,S/P angioplasty with stent Take 1 Tablet by mouth in the morning. 90 Tablet 1 3 07/28/19 23 Discontinued(Leg acy prescription brought in as discontinued) Empagliflozin 25 MG Oral Tablet (Jardiance) Take 1 Tablet by mouth in the morning. 90 Tablet 0 3 07/28/19 23 Discontinued(Leg acy prescription brought in as discontinued) Dulera 100-5 MCG/ACT Inhalation Aerosol (Mometasone-Formot geronimo)Indications:C OPD, severity to be determined (HCC) INHALE 2 PUFFS BY MOUTH TWICE DAILY 39 g 1 3 07/28/19 23 Discontinued(Leg acy prescription brought in as discontinued) Albuterol Sulfate HFA 108 (90 Base) MCG/ACT Inhalation Aerosol Solution INHALE 2 PUFFS 4 TIMES A DAY.` 54 g 1 3 07/28/19 23 Discontinued(Leg acy prescription brought in as discontinued) Rosuvastatin Calcium 40 MG Oral Tablet (Crestor)Indicatio ns:Dyslipidemia, goal LDL below 70 Take 1 Tablet by mouth in the morning. 90 Tablet 3 3 07/28/19 23 Discontinued(Leg acy prescription brought in as discontinued) Brilinta 90 MG Oral Tablet (Ticagrelor) Take 1 Tablet by mouth in the morning and 1 Tablet before bedtime. 180 Tablet 3 3 07/28/19 23 Discontinued(Leg acy prescription brought in as discontinued) Diclofenac Sodium 1 % External Gel (Voltaren)Indicati ons:Osteoarthritis of right knee, unspecified osteoarthritis type Apply topically to affected area 4 times a day. Apply to knee or ankle to treat pain. 400 g 0 3 07/28/19 23 Discontinued(Leg acy prescription brought in as discontinued) documented as of this encounter (statuses as of 11/30/2022) Active Problems Problem Noted Date Type 2 [...] stress disorder) Coronary artery disease invo lving in[place] coronary artery of inaja heart without angina pectoris 04/27/2012 Presence of [...] as of this encounter (statuses as of 11/30/2022) Resolved Problems Problem Noted Date Resolved Date [...] as of this encounter (statuses as of 11/30/2022) Immunizations Name Administration Dates Next Due Hepatitis [...] encounter Miscellaneous Notes * Telephone Encounter - Jeremiah Foster MD - 09/16/2022 3:24 PM EDT 21 mg patches sent. Please advise: Cannot smoke with patches on. If she smokes, must remove patch. If doing well after 6 weeks, should do the 14 mg patch for 2 weeks and the 7 mg patch for 2 weeks. * Telephone Encounter - Elvia Michelle RN - 09/16/2022 12:[address] Foster, Patient is trying to quit smoking & would like you to prescribe the Nicotine patches, says she is smoking about 15 cigarettes a day. Please send script to [facility] in [place] Thanks Elvia Michelle RN documented in this encounter Plan of Treatment Upcoming Encounters Date Type Specialty Care Team Description 12/09/2022 Home Visit Family Medicine Fela oLrd, Community Health Assistant Professor Of Geography [address] [place] [address] 01/19/2023 Office Visit Cardiology rCistal Godfrey PA-C [address] [place] [address] 03/09/2023 Office Visit Family Medicine [facility] [address] [facility] [address] Health Maintenance Due Date Last Done Comments [...] (2 of 2) 10/14/2021 08/19/2021 Albumin/Creatinine Ratio 03/18/202203/18/2 021, 11/12/2016, 01/19/2013, Additional history exists Influenza Vaccine (FLU shot) (#1) 2022 03/18/2021, 02/15/2019, 12/30/2017, Additional history exists B-12 12/26/2022 12/26/2021, 08/17, 02/22/2019, Additional history exists DTaP,Tdap,and Td Vaccines (2 - Td or Tdap) 01/19/2023 01/19/2013, 07/07/2003, 07/07/2003, Additional history exists HbA1c 05/08/2023 11/05/2022, 0 12/2021, 08/19/2021, Additional history exists Mammogram 09/02/2023 09/01/2022, 10/18, 05/22/2013, Additional history exists GFR 11/06/2023 11/05/2022, 0 12/2021, 08/19/2021, Additional history exists O2 ASSESSMENT COMPLETED IN PAST YEAR FOR COPD 11/06/2023 11/05/2022 GARDASIL-HPV IMMUNIZATION SERIES Aged Out No longer eligible based on patient's age to complete this topic MENINGOCOCCAL (MENACTRA/MENVEO) Aged Out No longer eligible based on patient's age to complete this topic documented as of this encounter Medical Devices Not on filedocumented as of this encounter Visit Diagnoses Diagnosis Tobacco use disorder- Primary documented in this encounter Care Teams Banquet Houseperson Relationship Specialty Start Date End Date Jeremiah Foster MD [address] [place] [address] PCP - General 05/28/00 documented as of this encounter
--- OUTSIDE RECORDS SUMMARY | 2023-04-11 14:55 | External Medical Summary | Summary of Care ---
Author Name Unknown Organization [facility] Address [address] [place] [address] Phone [phone] Care Team Providers Care Functional Manager Name Role Phone Jeremiah Foster MD Primary Care Provider [phone]- [phone] Reason for Visit * Reason Comments NEW PATIENT R ankle * Evaluate & Treat - Unlimited Visits (Within 30 days (routine)) - Authorized Specialty Diagnoses / Procedures Referred By Reena sol Referred To Contact Orthopaedic Surgery / Orthopedics Diagnoses Chronic pain of right ankle Jeremiah Foster MD [address] [place] [address] Referral ID Status Reason Start Date Expiration Date Visits Requested Visits Authorized [id number] Authorized Specialty Services Required 11/05/[phone] Encounter Details Date Type Department Care Team Description 11/18/2022 Office Visit Podiatry [facility] [address] [facility] [place] [id number] Alessia Russo, DPKaitlin [address] [facility] [place] [id number] Chronic pain of right ankle*; Chronic pain in right foot; Edema of both legs; Tobacco use disorder; Type 1 diabetes mellitus with hemoglobin A1c goal of less than 7.0% ([facility]) Allergies Active Allergy Reactions Severity Noted Date [...] directed. DX: 250.00 1 0 08/02/2006 Active [place] 3-6-9 Fatty Acids (OMEGA 3-6-9 COMPLEX) Capsule [...] Release Take by mouth . 0 Active Ajgppca-Wspvtctlw-Nu nc 333-133-5 MG Oral Tablet Take by [...] Patch 0 09/16/2022 Active OneTouch Delica Plus [id number] USE TO CHECK BLOOD SUGARS 4 TIMES [...] Tablet Sublingual (Nitrostat)Indicatio ns:Coronary artery disease involving [place] coronary artery of [place] heart without angina pectoris DISSOLVE 1 TABLET [...] stress disorder) Coronary artery disease invo lving [place] coronary artery of [place] heart without angina pectoris 04/27/2012 Presence of drug coated stent in right c oronary artery 04/27/2012 Overview: 03/28/2012 at [facility] Dyslipidemia, goal LDL below 70 04/27/19 13 [...] NEURO MANIF ADULT 4 PURE HYPERCHOLESTEROLEM 03/26/20 Overview: Per Lipid Taxonomy. BENIGN HYPERTENSION 02/22/2009 [...] as of this encounter Progress Notes * Alessia Russo, CASANDRA - 11/18/2022 11:20 AM EDT Podiatry New Patient Note [facility] Name: Sandy Wolfe : 1965 Date: 11/18/2022 CHIEF COMPLAINT: right foot and ankle pain HISTORY OF PRESENT ILLNESS: This patient is a 57 year old female who presents today accompanied by a family member. She reports that for some time (uses both months and years), she has had right dorsal foot and circumferential ankle pain. Her pain is relatively constant. She feels this is a generalhurting and that this can swell at times. She feels the left side is similar. She has a history of neuropathy and reports arthritis in the legs. She does take gabapentin. She has type 1 DM but statesshe does not check her sugars. Caregiver reports she has a walker but does not use it much. She also notes Sandy has a tendency to fall. She states she was admitted and sent to PT (last month) for weakness which did not seem to help this issue much. 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 Entered by: Tin Schmitt MD 06/07/2008 Daughter in Foster Care, age 14 yrs. ADHD and OCD. There for 7 months. Stays with Sandy on weekends. May come home at the end of the school year. Lives with twin children, age 16 years. Boyfriend visits, doesn't stay overnight. Current Outpatient Medications Medication Sig Dispense Refill ONE TOUCH ULTRA SYSTEM KIT KIT as directed. DX: 250.00 1 0 [place] 3-6-9 Fatty Acids (OMEGA 3-6-9 COMPLEX) Capsule Take 1 Cap by mouth daily. diphenhydrAMINE-APAP (sleep) 25-500 MG Oral Tablet Take 1 Tab by mouth daily as needed for Sleep (or pain). (Patient not taking: Reported on 10/01/2021) Unifine Pentips 31G X 8 MM (Insulin Pen Needle) USE TO INJECT LANTUS AND NOVOLOG 5 times a day Dx E11.29 500 Each 2 OneTouch Ultra Blue In Vitro Strip (Glucose Blood) USE TO CHECK BLOOD SUGARS 4 TIMES PER DAY ASDIRECTED FOR INSULIN REQUIRING DIABETIC. Dx E11.29 400 Strip 1 B Complex 100 TR Oral Tablet Extended Release Take by mouth . Alhqwbf-Fxtxdyudi-Jwvr 333-133-5 MG Oral Tablet Take by mouth . OneTouch Delica Lancets 33G USE TO CHECK BLOOD SUGARS 4 TIMES PER DAY DIRECTED FOR INSULIN REQUIRING DIABETIC. Dx E11.29 400 Each 1 Insulin Glargine 100 UNIT/ML Subcutaneous Solution Pen-injector (Lantus) Inject 60 units once daily 60 mL 0 Gabapentin 300 MG Oral Capsule (Neurontin) TAKE 2 CAPSULES BY MOUTH IN THE MORNING AND 1 CAPSULE IN THE EVENING 270 Capsule 0 Montelukast Sodium 10 MG Oral Tablet (Singulair) Take 1 Tablet by mouth in the morning. 30 Tablet 0 Ondansetron HCl 4 MG Oral Tablet (Zofran) Take 1 Tablet by mouth every 8 hours as needed for Nausea. 20 Tablet 0 Citalopram Hydrobromide 40 MG Oral Tablet (CeleXA) Take 1 Tablet by mouth in the morning. 90 Tablet 3 Isosorbide Mononitrate ER 30 MG Oral Tablet Extended Release 24 Hour (Imdur) Take 1 Tablet by mouth in the morning. Aspirin 81 MG Oral Tablet Delayed Release Take 1 Tablet by mouth in the morning. Mometasone Furo-Formoterol Fum 100-5 MCG/ACT Inhalation Aerosol (Dulera) Inhale 2 Puffs by mouth in the morning and 2 Puffs before bedtime. Metoprolol Succinate ER 50 MG Oral Tablet Extended Release 24 Hour (toPROL XL) Take 1.5 Tabletsby mouth in the morning. 30 Tablet 5 Nicotine 21 MG/24HR Transdermal Patch 24 Hour (Nicoderm CQ) Place 1 Patch over 24 hours topically on the skin in the morning. On upper body/upper arm, change once a day for 6 weeks.. 42 Patch 0 OneTouch Delica Plus [id number] USE TO CHECK BLOOD SUGARS 4 TIMES [...] TAKE ONE TABLET BY MOUTH EVERY MORNING (Patient not taking: Reported on 09/01/2022) 90 Tablet 1 Lisinopril 2.5 MG Oral Tablet (Prinivil) TAKE ONE TABLET BY MOUTH EVERY MORNING 90 Tablet 1 Empagliflozin 25 MG Oral Tablet (Jardiance) TAKE ONE TABLET BY MOUTH EVERY MORNING 90 Tablet 0 No current facility-administered medications for this visit. ALLERGIES: Review of patient's allergies indicates: Allergen Reactions Sulfamethoxazole-Trimethoprim Nausea/vomiting Adhesive Tape Rash Redness and itchy Aminoglycosides Rash Bacitracin Rash Neomycin Rash Localized blisters Polymyxin B Rash Redness and itchy Bactrim [Sulfamethoxazole-Trimethoprim] Diarrhea and Nausea/vomiting Severe GI upset Birds Does have two parakeets. Sneezing, red itchy hands when cleaning out their cage. Mold REVIEW OF SYSTEMS: CONSTITUTIONAL: No fevers, sweats, or chills FOCUSED PODIATRIC EXAM: Vascular: Pedal pulses palpable including dorsalis pedis and posterior tibial artery at 2/4 bilaterally. Capillary refill time is within normal limits to all toes. Mild edema right lateral foot and ankle when compared to the left. Neurologic: Sensation (light touch) intact to the bilateral lower extremities. No hypersensitivity. No weakness. Musculoskeletal: Pain is reported with palpation of the entire ankle extending to the dorsal foot to the midfoot. Mild pain is noted with active motion but minimal pain is reported with passive motion of this extremity. Dermatological: Skin temperature, texture, and turgor are within normal limits. No open lesions. There is no erythema or ecchymosis noted. DIAGNOSTIC STUDIES: 3 WB radiographs of the right ankle were obtained today. This includes AP Mortise and Lateral. No significant soft tissue findings. Bone mineralization appears within normal limits. No evidence of fracture. Possible narrowing of the anterior portion of the ankle joint on lateral view. Hemoglobin AIC Results: Lab Results Component Value Date/Time HEMOGLOBIN A1C 9.1 (H) 06/29/1996 03:58 PM HEMOGLOBIN A1C - [facility] 11.2 (H) 11/05/2022 10:32 AM HEMOGLOBIN A1C - [facility] 8.3 (H) 12/26/2021 01:22 PM HEMOGLOBIN A1C - [facility] 8.4 (H) 08/19/2021 12:10 PM HEMOGLOBIN A1C - [facility] 7.9 (H) 05/02/2019 08:10 AM HEMOGLOBIN A1C - [facility] 7.5 (H) 02/22/2019 03:24 PM HEMOGLOBIN A1C - [facility] 11.0 (H) 08/30/2018 12:28 PM ASSESSMENT: 1. Chronic pain of right ankle 2. Chronic pain in right foot 3. Edema of both legs 4. Tobacco use disorder 5. Type 1 diabetes mellitus with hemoglobin A1c goal of less than 7.0% ([facility]) PLAN: I personally reviewed right ankle x-rays as above. 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 We will see if daily use of these helps her pain at all. I question if some pain is related to her neuropathy especially with past trauma to this ankle (reported to ournurse only) and elevated blood sugars. I reviewed [id number], 11.2 in October. I prescribed a transdermal pain compound cream for her to try. If symptoms still persist, may consider extended PT or return to PCP for blood sugar monitoring. Patient notes she cannot have MRI. Follow up: if symptoms persist Alessia Russo DPM documented in this encounter Nursing Notes * Loraine Carlos LPN - 11/18/2022 9:27 AM EDT Pt presents with her daughter for new visit, referred by PCP. Pain in R ankle since fx a few years ago. After the injury, wore a boot x 8 weeks. C/o pain, swelling, will sometimes fall due to the ankle. Plans to order compression socks, usually uses a walker to ambulate. documented in this encounter Plan of Treatment Upcoming Encounters Date Type Specialty Care Team Description 12/09/2022 Home Visit Family Medicine Fela Lord, Community Health Safety Manager [address] [place] [address] 01/19/2023 Office Visit Cardiology Cristal Godfrey PA-C [address] [place] [address] 03/09/2023 Office Visit Family Medicine Jeremiah Foster MD [address] [place] [address] Pending Results Name Type Priority Associated Diagnoses Date /Time XR ANKLE 3 OR MORE VIEWS Medical Imaging Routine Chronic pain of right ankle 11/18/2022 9:39 AM EDT Health Maintenance Due Date Last [...] as of this encounter Visit Diagnoses Diagnosis Chronic pain of right ankle- Primary Chronic pain in right foot Pain in limb Edema of both legs Edema Tobacco use disorder Type 1 diabetes mellitus with hemoglobin A1c goal of less than 7.0% (HCC) documented in this encounter Care Teams Functional Manager Relationship Specialty Start Date End Date Jeremiah Foster MD [address] [place] [address] PCP - General 05/28/00 documented as of this encounter
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
--- OUTSIDE RECORDS SUMMARY | 2023-04-11 14:55 | External Medical Summary | Summary of Care ---
Author Name Unknown Organization [facility] Address [address] [place] [address] Phone [phone] Care Team Providers Care Mems Engineer Name Role Phone Jeremiah Foster MD Primary Care Provider [phone]- [phone] Reason for Visit * Reason Onset Date Comments Left Message 01/01/2023 Encounter Details Date Type Department Care Team Description 01/01/2023 Media Production Operator Telephone [facility] [address] [place] [address] Elvia Michelle RN [address] [place] [address] Left Message Allergies Active Allergy Reactions Severity Noted Date [...] directed. DX: 250.00 1 0 08/02/2006 Active [place] 3-6-9 Fatty Acids (OMEGA 3-6-9 COMPLEX) Capsule Take 1 Cap by mouth daily. 0 Active diphenhydrAMINE-APAP (sleep) 25-500 MG Oral Tablet Take 1 Tab by mouth daily as needed for Sleep (or pain). 0 Active Unifine Pentips 31G X 8 MM (Insulin Pen Needle)Indications:T ype 1 diabetes mellitus with hemoglobin A1c goal of less than 7.0% ([facility]) USE TO INJECT LANTUS AND NOVOLOG 5 times a day Dx E11.29 500 Each 2 11/26/2021 Active OneTouch Ultra Blue In Vitro Strip (Glucose Blood) USE TO CHECK BLOOD SUGARS 4 TIMES PER DAY DIRECTED FOR INSULIN REQUIRING DIABETIC. Dx E11.29 400 Strip 1 11/26/2021 Active B Complex 100 TR Oral Tablet Extended Release Take by mouth . 0 Active Kpxsejr-Zholaflot-Te nc 333-133-5 MG Oral Tablet Take by mouth . 0 Active OneTouch Delica Lancets 33G USE TO CHECK BLOOD SUGARS 4 TIMES PER DAY DIRECTED FOR INSULIN REQUIRING DIABETIC. Dx E11.29 400 Each 1 07/27/2022 Active Insulin Glargine 100 UNIT/ML Subcutaneous Solution Pen-injector (Lantus)Indications: DM type 2 causing renal disease, not at goal ([facility]) Inject 60 units once daily 60 mL [...] Patch 0 09/16/2022 Active OneTouch Delica Plus [id number] USE TO CHECK BLOOD SUGARS 4 TIMES [...] Tablet Sublingual (Nitrostat)Indicatio ns:Coronary artery disease involving [place] coronary artery of [place] heart without angina pectoris DISSOLVE 1 TABLET [...] stress disorder) Coronary artery disease invo lving [place] coronary artery of [place] heart without angina pectoris 04/27/2012 Presence of drug coated stent in right c oronary artery 04/27/2012 Overview: 03/28/2012 at [facility] Dyslipidemia, goal LDL below 70 04/27/19 [...] encounter Miscellaneous Notes * Telephone Encounter - Elvia Michelle RN - 01/01/2023 1:56 PM EDT Follow-up Routine Attempted Phone Call First Attempt Call Outcome Left Voicemail/Message Plan To attempt another outreach Elvia Michelle RN documented in this encounter Plan of Treatment Upcoming Encounters Date Type Specialty Care Team Description 01/19/2023 Office Visit Cardiology Cristal Godfrey PA-C [address] [place] [address] 03/09/2023 Office Visit Family Medicine [facility] [address] [facility] [address] Health Maintenance Due Date Last Done [...] filedocumented as of this encounter Care Teams Mems Engineer Relationship Specialty Start Date End Date Jeremiah Foster MD [address], [place] [phone] PCP - General 05/28/00 documented as of this encounter
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
--- OUTSIDE RECORDS SUMMARY | 2023-04-11 14:55 | External Medical Summary | Summary of Care ---
Author Name Unknown Organization [facility] Address [address] [place] [address] Phone [phone] Care Team Providers Care Iap Displays Analyst Name Role Phone Jeremiah Foster MD Primary Care Provider +1- [phone] Reason for Visit * Reason Onset Date Comments Weight Check 11/20/2022 Encounter Details Date Type Department Care Team Description 11/20/2022 Instructor Wastewater Treatment Plant Telephone [facility] [address] [place] [address] Elvia iMchelle RN [address] [place] [address] Weight Check Allergies Active Allergy Reactions Severity Noted Date [...] Start Date End Date Status ONE TOUCH [employer] SYSTEM KIT KITIndications:DM type 2, goal A1c below 7 as directed. DX: 250.00 1 0 08/02/2006 Active [place] 3-6-9 Fatty Acids (OMEGA 3-6-9 COMPLEX) Capsule Take 1 Cap by mouth daily. 0 Active diphenhydrAMINE-APAP (sleep) 25-500 MG Oral Tablet Take 1 Tab by mouth daily as needed for Sleep (or pain). 0 Active Unifine Pentips 31G X 8 MM (Insulin Pen Needle)Indications:T ype 1 diabetes mellitus with hemoglobin A1c goal of less than 7.0% ([facility]) USE TO INJECT LANTUS AND NOVOLOG 5 times a day Dx E11.29 500 Each 2 11/26/2021 Active OneTouch Ultra Blue In Vitro Strip (Glucose Blood) USE TO CHECK BLOOD SUGARS 4 TIMES PER DAY DIRECTED FOR INSULIN REQUIRING DIABETIC. Dx E11.29 400 Strip 1 11/26/2021 Active B Complex 100 TR Oral Tablet Extended Release Take by mouth . 0 Active Jvnwhmm-Dqgkwcvca-Ev nc 333-133-5 MG Oral Tablet Take by mouth . 0 Active OneTouch Delica Lancets 33G USE TO CHECK BLOOD SUGARS 4 TIMES PER DAY DIRECTED FOR INSULIN REQUIRING DIABETIC. Dx E11.29 400 Each 1 07/27/2022 Active Insulin Glargine 100 UNIT/ML Subcutaneous Solution Pen-injector (Lantus)Indications: DM type 2 causing renal disease, not at goal ([facility]) Inject 60 units once daily 60 mL [...] Patch 0 09/16/2022 Active OneTouch Delica Plus [id number] USE TO CHECK BLOOD SUGARS 4 TIMES [...] Tablet Sublingual (Nitrostat)Indicatio ns:Coronary artery disease involving [place] coronary artery of [place] heart without angina pectoris DISSOLVE 1 TABLET [...] stress disorder) Coronary artery disease invo lving [place] coronary artery of [place] heart without angina pectoris 04/27/2012 Presence of drug coated stent in right c oronary artery 04/27/2012 Overview: 03/28/2012 at [facility] Dyslipidemia, goal LDL below 70 04/27/19 [...] encounter Miscellaneous Notes * Telephone Encounter - Hanny Canchola LPN - 11/20/2022 4:52 PM EDT Provider to address: N/A Reason for Call: Weight Check Contact: Telephone Call Contact Type: Follow-up Outcome: called and spoke with pt. Advised of message below. Pt states that an appt early next weekwould be better. Scheduled pt with Maria Dolores Gonzalez on Wednesday. Informed pt if it gets worse, then needs to go to ER. Pt aware. Pt also made aware that meds are at pharmacy Total Time including non face to face (minutes): 10 * Telephone Encounter - Jeremiah Foster MD - 11/20/2022 4:31 PM EDT She needs eval. She has not been on diuretics. This is a new issue. Suggest [facility] or early nextweek and ED if worsening symptoms. In the meantime, can take furosemide 20 mg daily and potassium 10 meq daily. Sent erx. If no appt maed, please follow up Agustin with a call for weight, sx's. * Telephone Encounter - Elvia Michelle RN - 11/20/2022 3:[address] Foster, SITUATION: Patient has been gaining weight over the past few days BACKGROUND: Hx of heart failure ASSESSMENT: Patient states she has noticed a little more SOB with exertion Weight today was 176.8, was 173.2 lbs yesterday, 167.4 on Wednesday, 11/17 via [facility] scale in the home Patient says she has noticed her swelling is worse to her ankles Patient says she has eaten some chips this week Patient is not currently on a diuretic RECOMMENDATION: Encouraged patient to eat a low salt diet, keep legs elevated when sitting down If medication is ordered, please send to [facility] in [place] Encouraged patient to go to the ER with worsening SOB, LE edema, chest pain, patient verbalized understanding Elvia Michelle RN [place] [address] [address] [facility] [phone] documented in this encounter Plan of Treatment Upcoming Encounters Date Type Specialty Care Team Description 12/09/2022 Home Visit Family Medicine Fela Lord, Community Health Rn Primary Care [address] [place] [address] 01/19/2023 Office Visit Cardiology Cristal Godfrey PA-C [address] [place] [address] 03/09/2023 Office Visit Family Medicine Jeremiah Foster MD [address] [place] [address] Health Maintenance Due Date Last [...] filedocumented as of this encounter Care Teams Iap Displays Analyst Relationship Specialty Start Date End Date Jeremiah Foster MD [address] [place] [address] PCP - General 05/28/00 documented as of this encounter
--- OUTSIDE RECORDS SUMMARY | 2023-04-11 14:55 | External Medical Summary | Summary of Care ---
Author Name Unknown Organization [facility] Address [address] [place] [address] Phone [phone] Care Team Providers Care Children Counselor Name Role Phone Jeremiah Foster MD Primary Care Provider +1- [phone] Reason for Visit * Reason Onset Date Comments case management 12/09/2022 Encounter Details Date Type Department Care Team Description 12/09/2022 Speech And Language Clinician Telephone Care Coordination [address], [place] [id number] Geno Garcia LSW [address], [place] [id number] case management Allergies Active Allergy Reactions Severity [...] Start Date End Date Status ONE TOUCH [employer] SYSTEM KIT KITIndications:DM type 2, goal A1c below 7 as directed. DX: 250.00 1 0 08/02/2006 Active [place] 3-6-9 Fatty Acids (OMEGA 3-6-9 COMPLEX) Capsule Take 1 Cap by mouth daily. 0 Active diphenhydrAMINE-APAP (sleep) 25-500 MG Oral Tablet Take 1 Tab by mouth daily as needed for Sleep (or pain). 0 Active Unifine Pentips 31G X 8 MM (Insulin Pen Needle)Indications:T ype 1 diabetes mellitus with hemoglobin A1c goal of less than 7.0% ([facility]) USE TO INJECT LANTUS AND NOVOLOG 5 times a day Dx E11.29 500 Each 2 11/26/2021 Active OneTouch Ultra Blue In Vitro Strip (Glucose Blood) USE TO CHECK BLOOD SUGARS 4 TIMES PER DAY DIRECTED FOR INSULIN REQUIRING DIABETIC. Dx E11.29 400 Strip 1 11/26/2021 Active B Complex 100 TR Oral Tablet Extended Release Take by mouth . 0 Active Jvghxhe-Rvtvwnwgb-Vf nc 333-133-5 MG Oral Tablet Take by mouth . 0 Active OneTouch Delica Lancets 33G USE TO CHECK BLOOD SUGARS 4 TIMES PER DAY DIRECTED FOR INSULIN REQUIRING DIABETIC. Dx E11.29 400 Each 1 07/27/2022 Active Insulin Glargine 100 UNIT/ML Subcutaneous Solution Pen-injector (Lantus)Indications: DM type 2 causing renal disease, not at goal ([facility]) Inject 60 units once daily [...] Patch 0 09/16/2022 Active OneTouch Delica Plus [id number] USE TO CHECK BLOOD SUGARS 4 TIMES [...] c oronary artery 04/27/2012 Overview: 03/28/2012 at [facility] Dyslipidemia, goal LDL below 70 04/27/19 [...] * Telephone Encounter - YUN Saavedra - 12/09/2022 3:20 PM EDT [facility]#2- f/u Follow-up Routine Attempted Phone Call Second Attempt Call Outcome Unable to Leave Message Plan To attempt another outreach [facility] Speech And Language Clinician (Pronouns: she, her, hers) Care Coordination Integration director of home health services documented in this encounter Plan of Treatment Upcoming Encounters Date Type Specialty Care Team Description 01/19/2023 Office Visit Cardiology Cristal Godfrey PA-C [address] [place] [address] 03/09/2023 Office Visit Family Medicine Jeremiah Foster MD [address] [facility] [place] [address] Health Maintenance Due Date Last Done Comments DISCUSS TOBACCO CESSATION (REFER TO SMARTSET #6864) 1965 DXA Scan 1965 COVID-19 Vaccine (#1) [...] filedocumented as of this encounter Care Teams Children Counselor Relationship Specialty Start Date End Date Jeremiah Foster MD [address] [place], [place] [id number] PCP - General 05/28/00 documented as of this encounter
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
--- OUTSIDE RECORDS SUMMARY | 2023-04-11 14:56 | External Medical Summary | Summary of Care ---
Author Name Unknown Organization [facility] Address [address] [place] [address] Phone [phone] Care Team Providers Care Department Store General Manager Name Role Phone Jeremiah Foster MD Primary Care Provider +1- [phone] Encounter Details Date Type Department Care Team Description 11/11/2022 Result Scan Unspecified Department Tom Monsalve O, DO [address] [place] [address] <No scans attached> Allergies Active Allergy Reactions [...] directed. DX: 250.00 1 0 08/02/2006 Active [place] 3-6-9 Fatty Acids (OMEGA 3-6-9 COMPLEX) Capsule Take 1 Cap by mouth daily. 0 Active diphenhydrAMINE-APAP (sleep) 25-500 MG Oral Tablet Take 1 Tab by mouth daily as needed for Sleep (or pain). 0 Active Unifine Pentips 31G X 8 MM (Insulin Pen Needle)Indications:T ype 1 diabetes mellitus with hemoglobin A1c goal of less than 7.0% ([facility]) USE TO INJECT LANTUS AND NOVOLOG 5 times a day Dx E11.29 500 Each 2 11/26/2021 Active OneTouch Ultra Blue In Vitro Strip (Glucose Blood) USE TO CHECK BLOOD SUGARS 4 TIMES PER DAY DIRECTED FOR INSULIN REQUIRING DIABETIC. Dx E11.29 400 Strip 1 11/26/2021 Active B Complex 100 TR Oral Tablet Extended Release Take by mouth . 0 Active Lyokpdy-Sxdxnypoy-Uj nc 333-133-5 MG Oral Tablet Take by mouth . 0 Active OneTouch Delica Lancets 33G USE TO CHECK BLOOD SUGARS 4 TIMES PER DAY DIRECTED FOR INSULIN REQUIRING DIABETIC. Dx E11.29 400 Each 1 07/27/2022 Active Insulin Glargine 100 UNIT/ML Subcutaneous Solution Pen-injector (Lantus)Indications: DM type 2 causing renal disease, not at goal ([facility]) Inject 60 units once daily [...] Patch 0 09/16/2022 Active OneTouch Delica Plus Cpvlfo24M USE TO CHECK BLOOD SUGARS 4 TIMES [...] Tablet Sublingual (Nitrostat)Indicatio ns:Coronary artery disease involving [place] coronary artery of [place] heart without angina pectoris DISSOLVE 1 TABLET [...] stress disorder) Coronary artery disease invo lving [place] coronary artery of [place] heart without angina pectoris 04/27/2012 Presence of [...] Description 11/18/2022 Office Visit Podiatry Alessia Russo, DPM [address] [place], [place] [phone] 12/09/2022 Home Visit Family Medicine Fela Lord, [facility] Medical Scheduler [address] [place] [address] 01/19/2023 Office Visit Cardiology Cristal Godfrey PA-C [address] [place] [address] 03/09/2023 Office Visit Family Medicine Jeremiah Foster MD [address] [place] [address] Health Maintenance Due Date Last Done Comments [...] Date/Time Associated Diagnosis Comments CARDIOLOGY SCANNED RESULT 11/11/2022 documented in this encounter Results * CARDIOLOGY SCANNED RESULT (11/11/2022) 11/11/2022 Tom Monsalve DO OTHER documented in this encounter Care Teams Department Store General Manager Relationship Specialty Start Date End Date Jeremiah Foster MD [address] [place] [address] PCP - General 05/28/00 documented as of this encounter
--- OUTSIDE RECORDS SUMMARY | 2023-04-11 14:56 | External Medical Summary | Summary of Care ---
Author Name Unknown Organization [facility] Address [address] [place] [address] Phone [phone] Care Team Providers Care Nutrition Club Ambassador Name Role Phone Jeremiah Foster MD Primary Care Provider +1- [phone] Reason for Visit * Reason Onset Date Comments Appointment 11/10/2022 Encounter Details Date Type Department Care Team Description 11/10/2022 Telephone Pharmacy, [address] [address] Lima Johnson, [facility] [address] [place] [address] Appointment Allergies Active Allergy Reactions Severity Noted Date [...] directed. DX: 250.00 1 0 08/02/2006 Active [place] 3-6-9 Fatty Acids (OMEGA 3-6-9 COMPLEX) Capsule Take 1 Cap by mouth daily. 0 Active diphenhydrAMINE-APAP (sleep) 25-500 MG Oral Tablet Take 1 Tab by mouth daily as needed for Sleep (or pain). 0 Active Unifine Pentips 31G X 8 MM (Insulin Pen Needle)Indications:T ype 1 diabetes mellitus with hemoglobin A1c goal of less than 7.0% ([facility]) USE TO INJECT LANTUS AND NOVOLOG 5 times a day Dx E11.29 500 Each 2 11/26/2021 Active OneTouch Ultra Blue In Vitro Strip (Glucose Blood) USE TO CHECK BLOOD SUGARS 4 TIMES PER DAY DIRECTED FOR INSULIN REQUIRING DIABETIC. Dx E11.29 400 Strip 1 11/26/2021 Active B Complex 100 TR Oral Tablet Extended Release Take by mouth . 0 Active Crcuyjf-Hjeibwocg-Xw nc 333-133-5 MG Oral Tablet Take by mouth . 0 Active OneTouch Delica Lancets 33G USE TO CHECK BLOOD SUGARS 4 TIMES PER DAY DIRECTED FOR INSULIN REQUIRING DIABETIC. Dx E11.29 400 Each 1 07/27/2022 Active Insulin Glargine 100 UNIT/ML Subcutaneous Solution Pen-injector (Lantus)Indications: DM type 2 causing renal disease, not at goal ([facility]) Inject 60 units once daily 60 mL [...] Patch 0 09/16/2022 Active OneTouch Delica Plus [id number] USE TO CHECK BLOOD SUGARS 4 TIMES [...] Tablet Sublingual (Nitrostat)Indicatio ns:Coronary artery disease involving [place] coronary artery of [place] heart without angina pectoris DISSOLVE 1 TABLET [...] stress disorder) Coronary artery disease invo lving [place] coronary artery of [place] heart without angina pectoris 04/27/2012 Presence of [...] encounter Miscellaneous Notes * Telephone Encounter - Lima Johnson RPh - 11/10/2022 3:15 PM EDT Spoke to CM today regarding patient and uncontrolled DM. CM states she will be trying to contact daughter today, I provided with MTM number to call and schedule inperson DM appointment. Noted that patient has been previously discharged, but referral is still within the last year, so okay to schedule if patient is agreeable. Thanks, Lima Johnson, PharmD Clinical Pharmacist Medication Therapy Disease Management 11/10/2022, 3:16 PM documented in this encounter Plan of Treatment Upcoming Encounters Date Type Specialty Care Team Description 11/11/2022 Home Visit Family Medicine Fela Lord, [facility] Skip Tender [address] [place] [address] 11/18/2022 Office Visit Podiatry Alessia Russo, CASANDRA [address] [facility] [place] [address] 01/19/2023 Office Visit Cardiology Cristal Godfrey PA-C [address] [place] [address] 03/09/2023 Office Visit Family Medicine Jeremiah Foster MD [address] [place] [address] Health Maintenance Due Date Last Done Comments DISCUSS TOBACCO CESSATION (REFER TO SMARTSET #1154) 1965 DXA Scan 1965 COVID-19 Vaccine (#1) [...] 12/30/2017, Additional history exists B-12 12/26/2022 12/26/2021, 05/1 07/2020, 02/22/2019, Additional history exists DTaP,Tdap,and Td Vaccines [...] filedocumented as of this encounter Care Teams Nutrition Club Ambassador Relationship Specialty Start Date End Date Jeremiah Foster MD [address] [place], [place] [id number] PCP - General 05/28/00 documented as of this encounter
--- OUTSIDE RECORDS SUMMARY | 2023-04-11 14:56 | External Medical Summary | Summary of Care ---
Author Name Unknown Organization [facility] Address [address] [place] [address] Phone [phone] Care Team Providers Care Tire Specialist Name Role Phone Jeremiah Foster MD Primary Care Provider +1- [phone] Reason for Visit * Reason Onset Date Comments Follow Up 11/10/2022 Encounter Details Date Type Department Care Team Description 11/10/2022 Golf Shoe Spike Assembler Telephone [facility] [address] [place] [address] Elvia Michelle, LUIS M [address] [place] [address] Follow Up Allergies Active Allergy [...] directed. DX: 250.00 1 0 08/02/2006 Active [place] 3-6-9 Fatty Acids (OMEGA 3-6-9 COMPLEX) Capsule Take 1 Cap by mouth daily. 0 Active diphenhydrAMINE-APAP (sleep) 25-500 MG Oral Tablet Take 1 Tab by mouth daily as needed for Sleep (or pain). 0 Active Unifine Pentips 31G X 8 MM (Insulin Pen Needle)Indications:T ype 1 diabetes mellitus with hemoglobin A1c goal of less than 7.0% ([facility]) USE TO INJECT LANTUS AND NOVOLOG 5 times a day Dx E11.29 500 Each 2 11/26/2021 Active OneTouch Ultra Blue In Vitro Strip (Glucose Blood) USE TO CHECK BLOOD SUGARS 4 TIMES PER DAY DIRECTED FOR INSULIN REQUIRING DIABETIC. Dx E11.29 400 Strip 1 11/26/2021 Active B Complex 100 TR Oral Tablet Extended Release Take by mouth . 0 Active Jaorfmo-Awqfjdelq-Fa nc 333-133-5 MG Oral Tablet Take by mouth . 0 Active OneTouch Delica Lancets 33G USE TO CHECK BLOOD SUGARS 4 TIMES PER DAY DIRECTED FOR INSULIN REQUIRING DIABETIC. Dx E11.29 400 Each 1 07/27/2022 Active Insulin Glargine 100 UNIT/ML Subcutaneous Solution Pen-injector (Lantus)Indications: DM type 2 causing renal disease, not at goal ([facility]) Inject 60 units once daily [...] Patch 0 09/16/2022 Active OneTouch Delica Plus [id number] USE TO CHECK BLOOD SUGARS 4 TIMES [...] Tablet Sublingual (Nitrostat)Indicatio ns:Coronary artery disease involving [place] coronary artery of [place] heart without angina pectoris DISSOLVE 1 TABLET [...] stress disorder) Coronary artery disease invo lving [place] coronary artery of [place] heart without angina pectoris 04/27/2012 Presence of [...] Plan To attempt another outreach Sent to [facility] for cold call Epic reviewed, patient's recent A1C on 11/05/22 was 11.2, patient also due for dilated eye exam, called patient's number, voicemail full, called Satinder/son-VM full, message left for Caren/daughter requesting for her to have Sandy call CM back. Will have [facility] make cold call in an attempt to get patient to call CM back. Elvia Michelle RN documented in this encounter Plan of Treatment Upcoming Encounters Date Type Specialty Care Team Description 11/11/2022 Home Visit Family Medicine Fela Lord, Community [facility] Server Systems Administrator [address] [place] [address] 11/18/2022 Office Visit Podiatry Alessia Russo DPM [address] [facility] [place] [address] 01/19/2023 Office Visit Cardiology Cristal Godfrey PA-C [address] [place] [address] 03/09/2023 Office Visit Family Medicine Jeremiah Foster MD [address] [facility] [place] [address] Health Maintenance Due Date Last Done Comments [...] filedocumented as of this encounter Care Teams Tire Specialist Relationship Specialty Start Date End Date Jeremiah Foster MD [address] [place], [place] [phone] PCP - General 05/28/00 documented as of this encounter
--- OUTSIDE RECORDS SUMMARY | 2023-04-11 14:56 | External Medical Summary | Summary of Care ---
Author Name Unknown Organization [facility] Address [address] [place] [address] Phone [phone] Care Team Providers Care Sash Maker Name Role Phone Jeremiah Foster MD Primary Care Provider +1- [phone] Encounter Details Date Type Department Care Team Description 11/10/2022 [facility] Molding Machine [facility]Store [facility] [address] [place] [address] Elvia Michelle, LUIS M [address] [place] [address] Type 1 diabetes mellitus with hemoglobin A1c goal of less than 7.0% ([facility])*; COPD, severity to be determined (HCC) Allergies [...] directed. DX: 250.00 1 0 08/02/2006 Active [place] 3-6-9 Fatty Acids (OMEGA 3-6-9 COMPLEX) Capsule [...] Release Take by mouth . 0 Active Hcgxwlw-Emyhqmdib-Ku nc 333-133-5 MG Oral Tablet Take by [...] Patch 0 09/16/2022 Active OneTouch Delica Plus [id number] USE TO CHECK BLOOD SUGARS 4 TIMES [...] Tablet Sublingual (Nitrostat)Indicatio ns:Coronary artery disease involving [place] coronary artery of [place] heart without angina pectoris DISSOLVE 1 TABLET [...] stress disorder) Coronary artery disease invo lving [place] coronary artery of [place] heart without angina pectoris 04/27/2012 Presence of drug coated stent in right c oronary artery 04/27/2012 Overview: 03/28/[address] [facility] Dyslipidemia, goal LDL below 70 04/27/19 [...] 11/11/2022) Immunizations Name Administration Dates Next Due Diptheria/Tetanus (Adult) 06/08/1995 Hepatitis B, 20+ yrs 06/15/2016,09/25/2015 Pneumococcal Polysaccharide PPV23 (Pneumovax) 09/24/2017,02/10/2006,05/21/1999 Seasonal Influenza, Quadriva lent, No Preserve, 6 [...] Progress Notes * Elvia Michelle RN - 11/10/2022 3:53 PM EDT Addition to below: Spoke with patient, gave her the number to [facility]TM to schedule a face to face visit for enrollment to their program, number given was [phone]. 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, patient verbalized understanding Elvia Michelle RN Case Manager Progress Note: Date: 11/10/22 Assgned Patient Tier: [...] blood sugars, most recent A1C was 11.2 MTM has been trying to engage patient, she is not returning calls/keeping appointments Patient states she is interested in working with them, says her daughter Caren can help Message left with Caren requesting a call back to CM Plan to have daughter reach out to [facility]TM to set up an in person appointment Patient continues to live alone in an apartment Says she is independent with ambulation & ADL's, manages her medications Says she has been approved for 10 hours a month for a caregiver thru [employer] Caregiver does not always show up, patient expressing frustration about this Patient complains that she has been feeling tired Confirmed upcoming follow up appointments [facility] referral completed to do bottles out med review, reinforce DM teaching Did you receive an alert for an annual wellness visit? No Is this call for a hospital, senior living or rehab facility discharge to home? No Medication Reconciliation: Medication Reconciliation completed: olivia and [facility] referral to do bottles out med review Review of Current goals: Discussed the following patient-centered CM goals with the patient during this discussion: -Diabetes: Patient will successfully manage their diabetes -Status: On Track patient not testing blood sugars, A1C at 11.2, patient expressed interest in working with [facility]. -HEART FAILURE: Achieve successful management of heart [...] parties will occur this week: [facility] Fire Extinguisher Charger as additional contacts per workflow. Advancement/Closure Plan: Keep patient at current Tier with reassessment per workflow. Patient provided CM contact information and encouraged to call with any changes in condition. SNP Member? No PCP Notified of enrollment in CM/HM program: Yes Is Provider in agreement with POC? Yes Evlia M Bannach, RN Outpatient Case Management documented in this encounter Plan of Treatment Upcoming Encounters Date Type Specialty Care Team Description 11/18/2022 Office Visit Podiatry Alessia Russo, DPM [address] [facility] [address] 12/09/2022 Home Visit Family Medicine Fela Lord, Community [facility] Fire Extinguisher Charger [address] [place] [address] 01/19/2023 Office Visit Cardiology Cristal Godfrey PA-C [address] [place] [address] 03/09/2023 Office Visit Family Medicine Jeremiah Foster MD [address] [place] [address] Health Maintenance Due Date Last Done Comments [...] classified documented in this encounter Care Teams Sash Maker Relationship Specialty Start Date End Date Jeremiah Foster MD [address], [place] [id number] PCP - General 05/28/00 documented as of this encounter
--- OUTSIDE RECORDS SUMMARY | 2023-04-11 14:56 | External Medical Summary | Summary of Care ---
Author Name Unknown Organization [facility] Address [address] [place] [address] Phone [phone] Care Team Providers Care Lining Sewer Name Role Phone Jeremiah Foster MD Primary Care Provider +1- [phone] Reason for Visit * Reason Onset Date Comments Medication Question 11/11/2022 Encounter Details Date Type Department Care Team Description 11/11/2022 Telephone [facility] [address] [place] [address] Jeremiah Foster MD [address] [place] [address] Medication Question Allergies Active Allergy Reactions Severity Noted Date [...] directed. DX: 250.00 1 0 08/02/2006 Active [place] 3-6-9 Fatty Acids (OMEGA 3-6-9 COMPLEX) Capsule Take 1 Cap by mouth daily. 0 Active diphenhydrAMINE-APAP (sleep) 25-500 MG Oral Tablet Take 1 Tab by mouth daily as needed for Sleep (or pain). 0 Active Unifine Pentips 31G X 8 MM (Insulin Pen Needle)Indications:T ype 1 diabetes mellitus with hemoglobin A1c goal of less than 7.0% ([facility]) USE TO INJECT LANTUS AND NOVOLOG 5 times a day Dx E11.29 500 Each 2 11/26/2021 Active OneTouch Ultra Blue In Vitro Strip (Glucose Blood) USE TO CHECK BLOOD SUGARS 4 TIMES PER DAY DIRECTED FOR INSULIN REQUIRING DIABETIC. Dx E11.29 400 Strip 1 11/26/2021 Active B Complex 100 TR Oral Tablet Extended Release Take by mouth . 0 Active Aimybrq-Okanhzvbd-Yj nc 333-133-5 MG Oral Tablet Take by mouth . 0 Active OneTouch Delica Lancets 33G USE TO CHECK BLOOD SUGARS 4 TIMES PER DAY DIRECTED FOR INSULIN REQUIRING DIABETIC. Dx E11.29 400 Each 1 07/27/2022 Active Insulin Glargine 100 UNIT/ML Subcutaneous Solution Pen-injector (Lantus)Indications: DM type 2 causing renal disease, not at goal ([facility]) Inject 60 units once daily 60 [...] Patch 0 09/16/2022 Active OneTouch Delica Plus [id number] USE TO CHECK BLOOD SUGARS 4 TIMES [...] Tablet Sublingual (Nitrostat)Indicatio ns:Coronary artery disease involving [place] coronary artery of [place] heart without angina pectoris DISSOLVE 1 TABLET [...] stress disorder) Coronary artery disease invo lving [place] coronary artery of [place] heart without angina pectoris 04/27/2012 Presence of drug coated stent in right c oronary artery 04/27/2012 Overview: 03/28/2012 at [facility] Dyslipidemia, goal LDL below 70 04/27/19 13 [...] encounter Miscellaneous Notes * Telephone Encounter - Caren Cortez CPhT - 11/11/2022 11:18 AM EDT Pt calling to request Citalopram Hydrobromide 40 MG Oral Tablet (CeleXA). Informed pt that RX is available at their pharmacy. Pt verbalized understanding and stated they will check with their pharmacy regarding this medication. Thank you, Caren Cortez Business Consult [facility] ([facility]) (formerly Telepharmacy) 11/11/2022, 11:19 AM documented in this encounter Plan of Treatment Upcoming Encounters Date Type Specialty Care Team Description 11/18/2022 Office Visit Podiatry Alessia Russo, CASANDRA [address] [place] [address] 12/09/2022 Home Visit Family Medicine Fela Lord, Community [facility] It Sales Executive [address] [place] [address] 01/19/2023 Office Visit Cardiology Cristal Godfrey PA-C [address] [place] [address] 03/09/2023 Office Visit Family Medicine Jeremiah Foster MD [address] [place] [address] Health Maintenance Due Date Last Done Comments DISCUSS TOBACCO CESSATION (REFER TO SMARTSET #2118) 1965 DXA Scan 1965 COVID-19 Vaccine (#1) [...] filedocumented as of this encounter Care Teams Lining Sewer Relationship Specialty Start Date End Date Jeremiah Foster MD [address] [place] [address] PCP - General 05/28/00 documented as of this encounter
--- OUTSIDE RECORDS SUMMARY | 2023-04-11 14:56 | External Medical Summary | Summary of Care ---
Author Name Unknown Organization [facility] Address [address] [place] [address] Phone [phone] Care Team Providers Care Drapery Seamstress Name Role Phone Jeremiah Foster MD Primary Care Provider +1- [phone] Encounter Details Date Type Department Care Team Description 11/11/2022 Home Visit Care Coordination [address], [place] [id number] Fela Lord, Community Health Aircraft Maintenance Director [address] [place] [address] Allergies Active Allergy Reactions Severity Noted Date [...] Start Date End Date Status ONE TOUCH TheGrid SYSTEM KIT KITIndications:DM type 2, goal A1c below 7 as directed. DX: 250.00 1 0 08/02/2006 Active [place] 3-6-9 Fatty Acids (OMEGA 3-6-9 COMPLEX) Capsule Take 1 Cap by mouth daily. 0 Active diphenhydrAMINE-APAP (sleep) 25-500 MG Oral Tablet Take 1 Tab by mouth daily as needed for Sleep (or pain). 0 Active Unifine Pentips 31G X 8 MM (Insulin Pen Needle)Indications:T ype 1 diabetes mellitus with hemoglobin A1c goal of less than 7.0% ([facility]) USE TO INJECT LANTUS AND NOVOLOG 5 times a day Dx E11.29 500 Each 2 11/26/2021 Active OneTouch Ultra Blue In Vitro Strip (Glucose Blood) USE TO CHECK BLOOD SUGARS 4 TIMES PER DAY DIRECTED FOR INSULIN REQUIRING DIABETIC. Dx E11.29 400 Strip 1 11/26/2021 Active B Complex 100 TR Oral Tablet Extended Release Take by mouth . 0 Active Scpiwbo-Bmvbfvhks-Ua nc 333-133-5 MG Oral Tablet Take by mouth . 0 Active OneTouch Delica Lancets 33G USE TO CHECK BLOOD SUGARS 4 TIMES PER DAY DIRECTED FOR INSULIN REQUIRING DIABETIC. Dx E11.29 400 Each 1 07/27/2022 Active Insulin Glargine 100 UNIT/ML Subcutaneous Solution Pen-injector (Lantus)Indications: DM type 2 causing renal disease, not at goal ([facility]) Inject 60 units once daily [...] Patch 0 09/16/2022 Active OneTouch Delica Plus [id number] USE TO CHECK BLOOD SUGARS 4 TIMES [...] Tablet Sublingual (Nitrostat)Indicatio ns:Coronary artery disease involving tling[place] & [place] coronary artery of tlingit & [place] heart without angina pectoris DISSOLVE 1 TABLET [...] stress disorder) Coronary artery disease invo lving [place] coronary artery of [place]ling[place] & [place] heart without angina pectoris 04/27/2012 Presence of drug coated stent in right c oronary artery 04/27/2012 Overview: 03/28/2012 at [facility] Dyslipidemia, goal LDL below 70 04/27/19 13 [...] this encounter Progress Notes * Fela Lord, [facility] Aircraft Maintenance Director - 11/11/2022 10:11 AM EDT Community Health Aircraft Maintenance Director Visit Date: 11/11/2022 Time: 10:11 AM Name: Sandy Wolfe : 1965 Sandy was sleeping when I arrived. She was agreeable to seeing me after I explained my visit. Sandy tried to refill her Celexa and was told DC. Could this be checked on her behalf Referral Source: rd manager Source of Information: Patient Spoken language: syriac Patient can read in Luxembourgish: Yes. Merchandise Stocker needed: No. COVID-19 screening completed: Yes Vitals: [...] telehealth visit: No. Symptoms Surveys and Evaluations: [facility] completed this visit: No. Last flowsheet values for [facility]: Transition of Care: Discharge instructions reviewed with [...] 12/09 at 2. Fela Lord Community [facility] Aircraft Maintenance Director 11/11/2022 10:11 AM documented in this encounter Plan of Treatment Upcoming Encounters Date Type Specialty Care Team Description 11/18/2022 Office Visit [facility]ess[facility] Russo[facility] [address] [facility] [address] 12/09/2022 Home Visit Family Medicine Fela Lord Community Health Aircraft Maintenance Director [address] [place] [address] 01/19/2023 Office Visit Cardiology Cristal Godfrey PA-C [address] [facility] [address] 03/09/2023 Office Visit Family Medicine Jeremiah Foster MD [address], [place] [address] Health Maintenance Due Date Last Done Comments DISCUSS TOBACCO CESSATION (REFER TO SMARTSET #0721) 1965 DXA Scan 1965 COVID-19 Vaccine (#1) [...] filedocumented as of this encounter Care Teams Drapery Seamstress Relationship Specialty Start Date End Date Jeremiah Foster MD [address] [place] [address] PCP - General 05/28/00 documented as of this encounter
--- OUTSIDE RECORDS SUMMARY | 2023-04-11 14:56 | External Medical Summary | Summary of Care ---
Author Name Unknown Organization [facility] Address [address] [place] [address] Phone [phone] Care Team Providers Care Surface Water Technician Name Role Phone Jeremiah Foster MD Primary Care Provider [phone]- [phone] Reason for Visit * Reason Onset Date Comments Abnormal Lab Results 11/09/2022 Encounter Details Date Type Department Care Team Description 11/09/2022 Telephone [facility] [address] [place] [address] Jeremiah Foster MD [address] [place] [address] Abnormal Lab Results (/) Allergies Active Allergy Reactions Severity Noted Date [...] directed. DX: 250.00 1 0 08/02/2006 Active [place] 3-6-9 Fatty Acids (OMEGA 3-6-9 COMPLEX) Capsule Take 1 Cap by mouth daily. 0 Active diphenhydrAMINE-APAP (sleep) 25-500 MG Oral Tablet Take 1 Tab by mouth daily as needed for Sleep (or pain). 0 Active Unifine Pentips 31G X 8 MM (Insulin Pen Needle)Indications:T ype 1 diabetes mellitus with hemoglobin A1c goal of less than 7.0% ([facility]) USE TO INJECT LANTUS AND NOVOLOG 5 times a day Dx E11.29 500 Each 2 11/26/2021 Active OneTouch Ultra Blue In Vitro Strip (Glucose Blood) USE TO CHECK BLOOD SUGARS 4 TIMES PER DAY DIRECTED FOR INSULIN REQUIRING DIABETIC. Dx E11.29 400 Strip 1 11/26/2021 Active B Complex 100 TR Oral Tablet Extended Release Take by mouth . 0 Active Hpvmnpx-Qtjoxjhmy-Cr nc 333-133-5 MG Oral Tablet Take by mouth . 0 Active OneTouch Delica Lancets 33G USE TO CHECK BLOOD SUGARS 4 TIMES PER DAY DIRECTED FOR INSULIN REQUIRING DIABETIC. Dx E11.29 400 Each 1 07/27/2022 Active Insulin Glargine 100 UNIT/ML Subcutaneous Solution Pen-injector (Lantus)Indications: DM type 2 causing renal disease, not at goal ([facility]) Inject 60 units once [...] Patch 0 09/16/2022 Active OneTouch Delica Plus Jpylif77R USE TO CHECK BLOOD SUGARS 4 TIMES [...] Tablet Sublingual (Nitrostat)Indicatio ns:Coronary artery disease involving [place] coronary artery of tangirnaq heart without angina pectoris DISSOLVE 1 TABLET [...] stress disorder) Coronary artery disease invo lving tangirnaq coronary artery of tangirnaq heart without angina pectoris 04/27/2012 Presence of drug coated stent in right c oronary artery 04/27/2012 Overview: 03/28/2012 at [facility] Dyslipidemia, goal LDL below 70 04/27/19 13 [...] encounter Miscellaneous Notes * Telephone Encounter - Irene Fields [facility] - 11/11/2022 9:42 AM EDT Tried calling patient again no answer no vm. Front office staff: Letter created. Please send to patient. Forwarding encounter to provider as FYI. Thank you, Irene Fields, PharmD Clinical Pharmacist [facility] Services ([facility]PS) (formally Telepharmacy) 11/11/22 9:42 AM [phone] * Telephone Encounter - Irene Fields [facility] - 11/09/2022 10:26 AM EDT Tried calling patient to review lab results. No answer no VM. A1C uncontrolled MTDM referral recently placed but patient failed to establish. Encourage she establish with [facility] if agreeable transfer to their scheduling line @ [phone] Schedule earlier OV with provider in next 1-2 weeks to discuss diabetes regimen if not agreeable toschedule with [facility]DM. Polyuria, polydipsia, polyphagia? Adherent to current regimen? Results for orders placed or performed in visit on 11/05/22 HEMOGLOBIN A1C Result Value Ref Range Hemoglobin A1C 11.2 (H) 4.0 - 5.6 % Estimated Average Glucose 275 (H) <126 mg/dL COMPREHENSIVE METABOLIC PANEL Result Value Ref Range BUN 22 (H) 6 - 20 mg/dL Creatinine 0.7 0.5 - 1.0 mg/dL Estimated Glomerular Filtration Rate >90 >=60 mL/min Sodium 133 (L) 135 - 146 mmol/L Potassium 5.2 (H) 3.5 - 5.1 mmol/L Chloride 96 (L) 98 - 107 mmol/L CO2 24 22 - 32 mmol/L Anion Gap 13 7 - 15 mmol/L Glucose 377 (H) 70 - 120 mg/dL Albumin 4.7 3.8 - 5.0 g/dL AST 17 10 - 35 U/L Alkaline Phosphatase 79 35 - 130 U/L Bilirubin, Total 0.3 <=1.2 mg/dL Calcium 10.1 8.4 - 10.2 mg/dL Protein 7.3 6.0 - 8.3 g/dL ALT 17 10 - 35 U/L *Note: Due to a large number of results and/or encounters for the requested time period, some results have not been displayed. A complete set of results can be found in Results Review. Thank you, Irene Fields PharmD Clinical Pharmacist Central[facility] Pharmacy Services (CCPS) (formally Telepharmacy) 11/09/22 10:26 AM [phone] documented in this encounter Plan of Treatment Upcoming Encounters Date Type Specialty Care Team Description 11/18/2022 Office Visit Podiatry Alessia Russo, DPM [address] [place] [address] 12/09/2022 Home Visit Family Medicine Fela Lord, Community Health Director Telemetry [address] [place] [address] 01/19/2023 Office Visit Cardiology Cristal Godfrey [facility]-C [address] [facility] [address] 03/09/2023 Office Visit Family Medicine Jeremiah Foster MD [address] [place] [address] Health Maintenance Due Date Last Done Comments DISCUSS TOBACCO CESSATION (REFER TO SMARTSET #8870) 1965 DXA Scan 1965 COVID-19 Vaccine (#1) [...] filedocumented as of this encounter Care Teams Surface Water Technician Relationship Specialty Start Date End Date Jeremiah Foster MD [address] [place] [address] PCP - General 05/28/00 documented as of this encounter
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
--- OUTSIDE RECORDS SUMMARY | 2023-04-11 14:57 | External Medical Summary | Summary of Care ---
Author Name Unknown Organization [facility] Address [address] [place] [address] Phone [phone] Care Team Providers Care Export Specialist Name Role Phone Jeremiah Foster MD Primary Care Provider +1- [phone] Reason for Visit * Reason Onset Date Comments case management 11/05/2022 Encounter Details Date Type Department Care Team Description 11/05/2022 Supervisor Customer Records Division Telephone Care Coordination [address], [place] [id number] Geno Garcia LSW [address] [place] [address] case management Allergies Active Allergy [...] Start Date End Date Status ONE TOUCH Memopal SYSTEM KIT KITIndications:DM type 2, goal A1c below 7 as directed. DX: 250.00 1 0 08/02/2006 Active [place] 3-6-9 Fatty Acids (OMEGA 3-6-9 COMPLEX) Capsule [...] Release Take by mouth . 0 Active Kotjfib-Xjygddzes-Sw nc 333-133-5 MG Oral Tablet Take by [...] Patch 0 09/16/2022 Active OneTouch Delica Plus [id number] USE TO CHECK BLOOD SUGARS 4 TIMES [...] Tablet Sublingual (Nitrostat)Indicatio ns:Coronary artery disease involving [place] coronary artery of [place] heart without angina pectoris DISSOLVE 1 TABLET [...] stress disorder) Coronary artery disease invo lving [place] coronary artery of [place] heart without angina pectoris 04/27/2012 Presence of drug coated stent in right c oronary artery 04/27/2012 Overview: 03/28/2012 at [facility] [...] * Telephone Encounter - YUN Saavedra - 11/05/2022 3:47 PM EDT Images from the original note were not included. Goal Review: [facility] spoke w/ pt over the phone. Pt confirmed name and . Pt reports that she is doing very well. Pt reports no changes in her medications. [facility] reviewed pt's upcoming appointments. Pt reports some problems with her feet but that she is seeing Podiatry in November. Pt reports that she does not have access to her email at this time. [facility] to work on list of therapy providers to send to patient. O. Over the phone A. Pt spoke in a positive, bright tone of voice. Pt reports that her mood has been very good. No reports of feelings of depression noted at this time. [facility] reviewed [facility] contact. Pt verbalized understanding. P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 documented in this encounter Plan of Treatment Upcoming Encounters Date Type Specialty Care Team Description 11/18/2022 Office [facility] [address] [facility] [address] 01/19/2023 Office Visit Cardiology Cristal Godfrey PA-C [address] [place] [address] 03/09/2023 Office Visit Family Medicine Jeremiah Foster MD [address] [facility] [place] [address] Health Maintenance Due Date Last Done Comments [...] COMPLETED IN PAST YEAR FOR COPD 09/02/2023 11/05/2022 GARDASIL-HPV IMMUNIZATION SERIES Aged Out No longer eligible based on patient's age to complete this topic MENINGOCOCCAL (MENACTRA/MENVEO) Aged Out No longer eligible based on patient's age to complete this topic documented as of this encounter Medical Devices Not on filedocumented as of this encounter Care Teams Export Specialist Relationship Specialty Start Date End Date Jeremiah Foster MD [address] [place], [place] [id number] PCP - General 05/28/00 documented as of this encounter
--- OUTSIDE RECORDS SUMMARY | 2023-04-11 14:57 | External Medical Summary ---
Author Name Unknown Address Unknown Organization K01:[facility] [address] [facility] [address] Laboratory Report Ordering Provider Test Date Status IOANA MENDES 11/05/2022 10:32:36 Final Observation Date Value Abnormality Reference (Units ) Status HbA1C 11/05/2022 10:32:36 11.2 Above high normal 4. 0-5.6 (%) Final The use of HbA1c to monitor glycemic status is based on normal hemoglobin and HbA composition. This test should not be used in patients with abnormal hemoglobin that affects the half life of the red blood cell or the in vivo glycation rates. Glucose, estimated average 11/05/2022 10:32:36 275 Above high normal <126 (mg/dL) Jatinder reilly Performing Location [facility] [address] [facility] [address]
--- OUTSIDE RECORDS SUMMARY | 2023-04-11 14:57 | External Medical Summary | Summary of Care ---
Author Name Unknown Organization [facility] Address [address] [place] [address] Phone [phone] Care Team Providers Care Powder Carrier Name Role Phone Jeremiah Foster MD Primary Care Provider +1- [phone] Reason for Visit * Reason Comments Outpatient Testing Encounter Details Date Type Department Care Team Description 11/05/2022 Laboratory Laboratory, [place] [address] [place] [address] [place], Laboratory [address] [place] [address] Type 2 diabetes mellitus with hemoglobin A1c goal of less than 7.0% ([facility]); Routine medical exam; Dysuria; Type 1 diabetes mellitus with hemoglobin A1c goal of less than 7.0% ([facility]) Allergies Active Allergy Reactions Severity [...] directed. DX: 250.00 1 0 08/02/2006 Active [place] 3-6-9 Fatty Acids (OMEGA 3-6-9 COMPLEX) Capsule [...] Release Take by mouth . 0 Active Rucckhz-Eqrjgjjwp-Vl nc 333-133-5 MG Oral Tablet Take by [...] Patch 0 09/16/2022 Active OneTouch Delica Plus [id number] USE TO CHECK BLOOD SUGARS 4 TIMES [...] Tablet Sublingual (Nitrostat)Indicatio ns:Coronary artery disease involving [place] coronary artery of [place] heart without angina pectoris DISSOLVE 1 TABLET [...] stress disorder) Coronary artery disease invo lving [place] coronary artery of [place] heart without angina pectoris 04/27/2012 Presence of drug coated stent in right c oronary artery 04/27/2012 Overview: 03/28/2012 at [facility] Dyslipidemia, goal LDL below 70 [...] Office Visit Podiatry Alessia Russo DPM [address] [facility] [place] [address] 01/19/2023 Office Visit Cardiology Cristal Godfrey PA-C [address] [place] [address] 03/09/2023 Office Visit Family Medicine Jeremiah Foster MD [address] [place], [place] [phone] Pending Results Name Type Priority Associated Diagnoses Date /Time HEMOGLOBIN A1C Lab Routine Type 2 diabetes mellitus with hemoglobin A1c goal of less than 7.0% ([facility]) Routine medical exam 11/05/2022 10:32 AM EDT COMPREHENSIVE METABOLIC PANEL Lab Routine Type 1 diabetes mellitus with hemoglobin A1c goal of less than 7.0% (HCC) 11/05/2022 10:32 AM EDT Health Maintenance Due Date Last Done Comments DISCUSS TOBACCO CESSATION (REFER TO SMARTSET #0021) 1965 DXA Scan 1965 COVID-19 Vaccine (#1) [...] 07/07/2003, Additional history exists Mammogram 09/02/2023 09/01/2022, 0712/2018, 05/22/2013, Additional history exists O2 ASSESSMENT COMPLETED [...] exam Routine general medical examination at a [facility] care facility Dysuria Type 1 diabetes mellitus with hemoglobin A1c goal of less than 7.0% (HCC) documented in this encounter Care Teams Powder Carrier Relationship Specialty Start Date End Date Jeremiah Foster MD [address] [place] [address] PCP - General 05/28/00 documented as of this encounter
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
--- OUTSIDE RECORDS SUMMARY | 2023-04-11 14:57 | External Medical Summary ---
Author Name Unknown Address Unknown Organization K01:[facility] [place] - [address] [facility] [address] Laboratory Report Ordering Provider Test Date Status SARA DOYLELEYDA 11/05/2022 10:32:36 Final Observation Date Value Abnormality Reference (Units ) Status BUN 11/05/2022 10:32:36 22 Above high normal 6-20 (mg/dL) Final Creatinine 11/05/2022 10:32:36 0.7 0.5-1.0 (mg/dL) Final Glomerular filtration rate/1.73 sq M.predicted [Volume Rate/Area] in Serum, Plasma or Blood by Creatinine-based formula (CKD-EPI) 11/05/2022 10:32:36 >90 >=60 (mL/min) Final eGFR is calculated based on the CKD-EPI 2020 equation SODIUM 11/05/2022 10:32:36 133 Below low normal 135 -146 (mmol/L) Final Potassium 11/05/2022 10:32:36 5.2 Above high normal 3. 5-5.1 (mmol/L) Final Cl 11/05/2022 10:32:36 96 Below low normal 98- 107 (mmol/L) Final CO2 11/05/2022 10:32:36 24 22-32 (mmo l/L) Final Anion gap 11/05/2022 10:32:36 13 7-15 (mmol /L) Final Glucose 11/05/2022 10:32:36 377 Above high normal 70 -120 (mg/dL) Final Albumin 11/05/2022 10:32:36 4.7 3.8-5.0 (g /dL) Final AST (Aspartate aminotransferase) 11/05/2022 10:32:36 17 10-35 (U/L) Fin al Alk Phos 11/05/2022 10:32:36 79 35-130 (U/ L) Final Bilirubin, Total 11/05/2022 10:32:36 0.3 <=1 .2 (mg/dL) Final Calcium 11/05/2022 10:32:36 10.1 8.4-10.2 ( mg/dL) Final Protein 11/05/2022 10:32:36 7.3 6.0-8.3 (g /dL) Final ALT (Alanine aminotransferase) 11/05/2022 10:32:36 17 10-35 (U/L) Jatinder reilly Performing Location [facility] [place] - [address] [facility] [address]
--- OUTSIDE RECORDS SUMMARY | 2023-04-11 14:57 | External Medical Summary | Summary of Care ---
Author Name Unknown Organization [facility] Address [address] [place] [address] Phone [phone] Care Team Providers Care Experiential Therapist Name Role Phone Jeremiah Fosetr MD Primary Care Provider [phone] Reason for Visit * Reason Comments Outpatient Testing Encounter Details Date Type Department Care Team Description 11/05/2022 Laboratory Laboratory, [place] [address] [place] [address] [place] [address] [place] [address] Type 2 diabetes mellitus with hemoglobin A1c goal of less than 7.0% ([facility]); Routine medical exam; Dysuria; Type 1 diabetes mellitus with hemoglobin A1c goal of less than 7.0% ([facility]) Allergies Active Allergy Reactions Severity Noted Date [...] directed. DX: 250.00 1 0 08/02/2006 Active [place] 3-6-9 Fatty Acids (OMEGA 3-6-9 COMPLEX) Capsule Take 1 Cap by mouth daily. 0 Active diphenhydrAMINE-APAP (sleep) 25-500 MG Oral Tablet Take 1 Tab by mouth daily as needed for Sleep (or pain). 0 Active Unifine Pentips 31G X 8 MM (Insulin Pen Needle)Indications:T ype 1 diabetes mellitus with hemoglobin A1c goal of less than 7.0% ([facility]) USE TO INJECT LANTUS AND NOVOLOG 5 times a day Dx E11.29 500 Each 2 11/26/2021 Active OneTouch Ultra Blue In Vitro Strip (Glucose Blood) USE TO CHECK BLOOD SUGARS 4 TIMES PER DAY DIRECTED FOR INSULIN REQUIRING DIABETIC. Dx E11.29 400 Strip 1 11/26/2021 Active B Complex 100 TR Oral Tablet Extended Release Take by mouth . 0 Active Pqovwky-Pslaomstd-De nc 333-133-5 MG Oral Tablet Take by mouth . 0 Active OneTouch Delica Lancets 33G USE TO CHECK BLOOD SUGARS 4 TIMES PER DAY DIRECTED FOR INSULIN REQUIRING DIABETIC. Dx E11.29 400 Each 1 07/27/2022 Active Insulin Glargine 100 UNIT/ML Subcutaneous Solution Pen-injector (Lantus)Indications: DM type 2 causing renal disease, not at goal ([facility]) Inject 60 units once daily [...] Patch 0 09/16/2022 Active OneTouch Delica Plus [id number] USE TO CHECK BLOOD SUGARS 4 TIMES [...] Tablet Sublingual (Nitrostat)Indicatio ns:Coronary artery disease involving [place] coronary artery of [place] heart without angina pectoris DISSOLVE 1 TABLET [...] stress disorder) Coronary artery disease invo lving [place] coronary artery of [place] heart without angina pectoris 04/27/2012 Presence of drug coated stent in right c oronary artery 04/27/2012 Overview: 03/28/2012 at [facility] Dyslipidemia, goal LDL below 70 04/27/19 [...] Office Visit Podiatry Alessia Russo DPM [address] [facility] [place] [address] 01/19/2023 Office Visit Cardiology Cristal Godfrey PA-C [address] [place] [address] 03/09/2023 Office Visit Family Medicine Jeremiah Foster MD [address], [place] [id number] Pending Results Name Type Priority Associated Diagnoses Date /Time HEMOGLOBIN A1C Lab Routine Type 2 diabetes mellitus with hemoglobin A1c goal of less than 7.0% ([facility]) Routine medical exam 11/05/2022 10:32 AM EDT [...] exam Routine general medical examination at a [facility] care facility Dysuria Type 1 diabetes mellitus with hemoglobin A1c goal of less than 7.0% ([facility]) documented in this encounter Care Teams Experiential Therapist Relationship Specialty Start Date End Date Jeremiah Foster MD [address], [place] [id number] PCP - General 05/28/00 documented as of this encounter
[2023-04-11 15:22] LABS: Basophils # (auto) 0.05 K/uL (0.00-0.20); Basophils % (auto) 0.6 %; Eosinophils # (auto) 0.13 K/uL (0.00-0.50); Eosinophils % (auto) 1.5 %; Hematocrit (blood only) 45.9 % (37.0-47.0); Hemoglobin 14.8 g/dl (12.0-16.0); Immature Granulocytes # (auto) 0.03 K/uL (0.01-0.20); Immature Granulocytes % (auto) 0.4 %; Lymphocytes # (auto) 2.88 K/uL (1.20-3.40); Lymphocytes % (auto) 34.2 %; Mean Corpuscular Hemoglobin 29.5 pg (25.0-34.0); Mean Corpuscular Hgb Conc 32.2 g/dL (32.0-36.0); Mean Corpuscular Volume 91.6 fL (80.0-100.0); Monocytes # (auto) 0.46 K/uL (0.11-0.59); Monocytes % (auto) 5.5 %; Neutrophils # (auto) 4.86 K/uL (1.40-6.50); Neutrophils % (auto) 57.8 %; Platelet Count 380 K/uL (130-400); RDW Coefficient of Variation 14.9 % (11.5-14.5); RDW Standard Deviation 50.3 fL (36.4-46.3); Red Blood Count 5.01 M/uL (4.20-5.40); White Blood Count 8.41 K/ul (4.8-10.8)
[2023-04-11 15:40] LABS: BUN Creatinine Ratio 26.4 (10-20); Calcium 9.5 mg/dl (8.6-10.3); Creatinine Clr Calc Pharmacy 113.3 ml/min; Est GFR (African American) 121.3 ml/min; Est GFR (Non-African American) 104.7 ml/min; Magnesium 1.8 mg/dl (1.7-2.4)
[2023-04-11 15:48] LABS: Troponin I High Sensitivity 7.9 pg/ml (0-14)
--- NOTE | 2023-04-11 15:53 | XRay Report ---
XR chest 1V portable HISTORY: Chest pain, nonspecific COMPARISON: Chest 08/26/2022. FINDINGS: No pneumothorax. No pleural effusions. There is a left-sided pacemaker/defibrillator again noted. No evidence for pulmonary edema. The heart is normal in size. No acute fractures identified. B ibasilar linear densities persist and favor subsegmental atelectasis are scarring. IMPRESSION: No significant change compared to the prior study. No acute process. ACT 112: Negative or not required by law. Electronically signed by: Ziggy Huffman M.D. 04/11/2023 3:52 PM
[2023-04-11 15:56] LABS: INR 0.9 (0.9-1.1); Partial Thromboplastin Time 28 Seconds (21-31); Prothrombin Time 10.3 Seconds (9.0-12.0)
--- NOTE | 2023-04-11 15:59 | CT Scan Report ---
HEAD CT NONCONTRAST CT DOSE: 1182.04 mGy.cm HISTORY: Headache. Near syncope 30 mins ago TECHNIQUE: Multiaxial CT images of the head were performed without the use of intravenous contrast. A utomated exposure control was utilized for this study. A dose lowering technique was utilized adheri ng to the principles of ALARA. Comparison: Head CT 08/26/2022. Findings: The paranasal sinuses and mastoid air cells are clear. The calvarium and skull base are int act. The ventricles and sulci are within normal limits. There is no mass, hematoma, midline shift, or acute infarct. 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 This is similar to the prior study. Impression: No significant change compared to the prior study. No acute intracranial abnormality. ACT 112: Negative or not required by law. Electronically signed by: Ziggy Huffman M.D. 04/11/2023 3:57 PM
--- NOTE | 2023-04-11 16:01 | CT Scan Report ---
CERVICAL SPINE CT CT DOSE: HISTORY: neck pain TECHNIQUE: Multiaxial CT images of the cervical spine were performed and reformatted in the sagittal and coronal plane without the use of contrast. A dose lowering technique was utilized adhering to th e principles of ALARA. COMPARISON: Cervical spine CT 08/26/2022. FINDINGS: No fractures. No subluxation. Prevertebral soft tissues and the C1-C2 interval are intact. No pneumothorax. Left-sided pacemaker wires are noted. IMPRESSION: No fractures within the cervical spine. ACT 112: Negative or not required by law. Electronically signed by: Ziggy Huffman M.D. 04/11/2023 3:59 PM
[2023-04-11] MEDS ORDERED: METOPROLOL TARTRATE 1 MG/ML VIAL IV STA (16:49)
--- NOTE | 2023-04-11 17:08 | Emergency Department Note ---
History of Present Illness General Chief complaint: Weakness Stated complaint: Weakness Time Seen by Provider: 04/11/23 14:53 History of Present Illness Provider complaint: Weakness Maximum Pain Intensity: 9 57-year-old female with history of coronary artery disease V. tach CVA presents emergency department for near syncope. Patient states she was walking outside approximate 30 minutes ago and felt like she was going to pass out. She reports headache and neck pain. She reports no fevers. No nausea or vomiting. No true syncopal episode or fall. No close head injury. Home Medications Medication Instructions Recorded Confirmed Type aspirin 81 mg chewable tablet 81 mg PO DAILY ##0 11/10/14 04/11/23 History citalopram 20 mg tablet 20 mg PO DAILY ##0 09/23/17 04/11/23 History montelukast 10 mg tablet 10 mg PO QAM asthma ##0 09/23/17 04/11/23 History (Singulair) albuterol sulfate 90 mcg/actuation 2 puff inhalation Q6H PRN asthma 08/07/18 04/11/23 History aerosol inhaler (Ventolin HFA) fenofibrate nanocrystallized 48 mg 48 mg PO DAILY 08/07/18 04/11/23 History tablet (Tricor) mometasone-formoterol HFA 100 2 puff inhalation BID 08/07/18 04/11/23 History mcg-5 mcg/actuation aerosol inhaler nitroglycerin 0.4 mg sublingual 0.4 mg sublingual UD 10/11/18 04/11/23 History tablet insulin glargine 100 unit/mL (3 60 units subcut QAM 12/18/18 04/11/23 History mL) subcutaneous pen (Lantus Solostar U-100 Insulin) lisinopril 2.5 mg tablet (Zestril) 2.5 mg PO DAILY 12/18/18 04/11/23 History empagliflozin 25 mg tablet 25 mg PO DAILY 05/17/20 04/11/23 History (Jardiance) mirtazapine 15 mg tablet 7.5 mg PO HS 05/17/20 04/11/23 History omega-3 fatty acids 1,000 mg PO DAILY 05/17/20 04/11/23 History polyethylene glycol 3350 17 gram 17 g PO DAILY PRN Constipation 05/17/20 04/11/23 History oral powder packet (Miralax) rosuvastatin 40 mg tablet 40 mg PO DAILY 05/17/20 04/11/23 History diclofenac sodium 1 % topical gel 0 g topical QID PRN Pain 08/26/22 04/11/23 History metformin 500 mg tablet,extended 1,000 mg PO BID 08/26/22 04/11/23 History release 24 hr ondansetron HCl 4 mg tablet 4 mg PO Q8 PRN Nausea 08/26/22 04/11/23 History ticagrelor 90 mg tablet (Brilinta) 90 mg PO AMHS 08/26/22 04/11/23 History vitamin B complex 1 tab PO DAILY 08/26/22 04/11/23 History blood sugar diagnostic (AppsFlyerTouch #100 ea 08/28/22 Rx Ultra Test strips) blood-glucose meter (AppsFlyerTouch #1 ea 08/28/22 Rx Ultra2 Meter) isosorbide mononitrate 30 mg 30 mg PO QAM #30 tabs 08/28/22 04/11/23 Rx tablet,extended release 24 hr lancets 33 gauge (OneTouch Delica #100 ea 08/28/22 Rx Plus Lancet) metoprolol succinate 50 mg 75 mg (1.5 x 50 mg) PO DAILY #60 08/28/22 04/11/23 Rx tablet,extended release 24 hr tabs baclofen 10 mg tablet 10 mg PO TID 04/11/23 04/11/23 History gabapentin 600 mg tablet 600 mg PO BID 04/11/23 04/11/23 History Allergies Allergy/AdvReac Type Severity Reaction Status Date / Time Bactrim Allergy Severe "SEVERE GI Verified 04/29/17 15:45 UPSET" mold Allergy Severe SNEEZING, Verified 02/18/23 01:37 WATERY EYES, MAY CAUSE SOB-DEPENDS ON MOLD sulfamethoxazole Allergy Severe "SEVERE GI Verified 02/18/23 01:37 UPSET" trimethoprim Allergy Severe "SEVERE GI Verified 02/18/23 01:37 UPSET" adhesive Allergy Intermediate REDNESS, Verified 02/18/23 01:37 ITCHY, BLISTERS Aminoglycosides Allergy Intermediate ITCHY RASH Verified 02/18/23 01:37 bacitracin Allergy Intermediate ITCHY RASH Verified 02/18/23 01:37 neomycin Allergy Intermediate ITCHY RASH Verified 02/18/23 01:37 polymyxin B Allergy Intermediate ITCHY RASH Verified 02/18/23 01:37 Past Med/Surg History Medical History (Updated 04/11/23 @ 17:43 by Joao Mcmullen MD) Ischemic cardiomyopathy Anxiety Asthma HTN (hypertension) Myocardial infarction CHF (congestive heart failure) Diabetes Diabetes type 2, uncontrolled CAD (coronary artery disease) Chest pain Tobacco abuse Genital herpes Surgical History H/O: hysterectomy History of coronary artery stent placement H/O exploratory laparotomy S/P TAO-BSO Previous section Family History Other Cancer Diabetes Heart disease Hypertension Social History Smoking Status: Current every day smoker Tobacco Type: Cigarettes Second Hand Exposure: No; Do You Dip or Chew Tobacco: No; Hx Alcohol Use: No Hx Substance Use: No Preferred Language: Albanian Communication Ability: Effective 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 Beliefs That Will Affect Care: None marital status: Current Living Situation: Alone current occupational status: unemployed Feels Safe at Home: Yes Assistive Devices: None Physical Exam Vital Signs Vital Signs - 24 hr 04/11/23 14:49 04/11/23 14:49 04/11/23 14:49 Temperature 37.2 C Temperature Source Oral Pulse Rate 135 H Pulse Rate [Apical] 135 H Pulse Rhythm [Apical] Respiratory Rate 20 20 Respiratory Effort / Characteristics Non-Labored Spontaneous Respiratory Depth Normal Respiratory Pattern Regular Blood Pressure 133/104 H Blood Pressure [Right Arm] 133/104 H Blood Pressure Mean 113 Blood Pressure Mean [Right Arm] 113 Blood Pressure Position Lying Blood Pressure Position [Right Arm] Lying Pulse Oximetry 95 95 95 Oxygen Delivery Method Room Air Room Air Room Air Sepsis Recent Fever Within 48 Hours No Sepsis New/Unexplained Change in Mental Status No Sepsis Action Taken by Nursing No Action Required 04/11/23 14:49 04/11/23 14:59 04/11/23 15:32 Temperature Temperature Source Pulse Rate Pulse Rate [Apical] 80 Pulse Rhythm [Apical] Regular Respiratory Rate Respiratory Effort / Characteristics Respiratory Depth Respiratory Pattern Blood Pressure Blood Pressure [Right Arm] 162/86 H Blood Pressure Mean Blood Pressure Mean [Right Arm] 111 Blood Pressure Position Blood Pressure Position [Right Arm] Pulse Oximetry 93 93 Oxygen Delivery Method Room Air Room Air Room Air Sepsis Recent Fever Within 48 Hours Sepsis New/Unexplained Change in Mental Status Sepsis Action Taken by Nursing 04/11/23 16:04 04/11/23 16:57 04/11/23 16:59 Temperature Temperature Source Pulse Rate 80 134 H Pulse Rate [Apical] 134 H Pulse Rhythm [Apical] Respiratory Rate 18 Respiratory Effort / Characteristics Respiratory Depth Normal Respiratory Pattern Blood Pressure 135/95 Blood Pressure [Right Arm] 135/95 Blood Pressure Mean Blood Pressure Mean [Right Arm] 108 Blood Pressure Position Blood Pressure Position [Right Arm] Semi-fowlers Pulse Oximetry 92 Oxygen Delivery Method Room Air Sepsis Recent Fever Within 48 Hours Sepsis New/Unexplained Change in Mental Status Sepsis Action Taken by Nursing 04/11/23 17:48 04/11/23 18:00 Temperature Temperature Source Pulse Rate 130 H Pulse Rate [Apical] 96 H Pulse Rhythm [Apical] Respiratory Rate 18 Respiratory Effort / Characteristics Respiratory Depth Normal Respiratory Pattern Blood Pressure 130/86 Blood Pressure [Right Arm] 171/96 H Blood Pressure Mean Blood Pressure Mean [Right Arm] 121 Blood Pressure Position Blood Pressure Position [Right Arm] Semi-fowlers Pulse Oximetry 94 Oxygen Delivery Method Room Air Sepsis Recent Fever Within 48 Hours Sepsis New/Unexplained Change in Mental Status Sepsis Action Taken by Nursing Physical Exam GENERAL: oriented to person, place, and time. appears well-developed and well- nourished. HENT: Exam performed. - Head: Normocephalic and atraumatic. EYES: Conjunctivae and EOM are normal. Right eye exhibits no discharge. Left eye exhibits no discharge. No scleral icterus. NECK: Normal range of motion. Neck supple. No JVD present. CV: Normal rate, regular rhythm, normal heart sounds and intact distal pulses. There is no peripheral edema. Palpable radial pulses bue. PULM/CHEST: Effort normal and breath sounds normal. No respiratory distress. No stridor. no wheezes. no rales. ABD: The abdomen is soft. There is no tenderness. NEURO: Motor and sensation grossly intact. SKIN: Skin is warm and dry. He is not diaphoretic. PSYCH: normal mood and affect. Behavior is normal. Judgment and thought content normal. Course Course 1453: The patient was evaluated in room B9. A complete history and physical exam was performed Cardiac monitoring: An order was placed for continuous cardiac monitoring. The monitor shows a rate of 90 with sinus rhythm interpreted by me Patient's initial EKG showed a wide-complex irregular rhythm with heart rate in the 130s and then her EKG normalized to sinus rhythm with fusion complexes and PVCs in the 90s. Will continue to monitor and conduct labs and imaging. 1610: Patient has been in sinus rhythm her vitals are stable labs and imaging within normal limits. Patient be discharged to follow-up PCP. 1625: When the patient was to be discharged by nursing she started having tachycardia again which did look wide and regular. Patient quickly switched between this and a sinus rhythm with a narrow complex. Will contact cardiology on-call Dr. Monsalve to discuss. 1650: Patient keeps alternating between a sinus rhythm with and a irregular narrow complex. Will attempt to give 5 mg IV metoprolol in case this is atrial fibrillation. 1710: No response to metoprolol. Dr. Monsalve was [place] texted the EKGs and states he will get back to us. 1741: Spoke with Dr. Monsalve who states he does think the patient is in V. tach. He recommends interrogating the patient's defibrillator although he states that the defibrillator will not shock for social low rate is probably set in the 150s to 160s to defibrillator. He recommends starting the patient on amiodarone bolus and drip and to admit to the hospitalist team that he will see patient in the morning. 1834: Vital signs stable. Amiodarone bolus given and patient on amiodarone bolus. EKG repeat shows sinus rhythm with rate of 73 with PVCs. Medtronic pacemaker was interrogated and patient was having runs of V. tach. Will continue with plan to admit to [facility] hospitalist team on amiodarone drip. Administered Medications Amiodarone HCl/Dextrose (Nexterone / D5w) 360 mg in 200 mls @ 33.333 mls/hr IV ONE ONE Stop: 04/11/23 23:45 Last Admin: 04/11/23 18:07 Dose: 1 mg/min, 33.3 mls/hr Documented By: RUBY Co-signed By: ACC Discontinued Medications Amiodarone HCl/Dextrose (Nexterone / D5w) 150 mg in 100 mls @ 600 mls/hr IV NOW STA Stop: 12/24/23 17:45 Last Infusion: 04/11/23 18:05 Dose: Infused Documented By: RUBY Co-signed By: GAURI Admin: 04/11/23 17:54 Dose: 600 mls/hr Documented By: RUBY Co-signed By: KELTON Metoprolol Tartrate (Metoprolol Tartrate 1 Mg/Ml Vial) 5 mg IV NOW STA Stop: 04/11/23 16:50 Last Admin: 04/11/23 16:59 Dose: 5 mg Documented By: RUBY Critical Care Time Critical Care Time: Yes Total Critical Care Time: 86 I have personally spent greater than 86 minutes of critical care time in the direct management of this patient. This includes bedside care, interpretation of diagnostic studies, and testing, discussion with consultants, patient, and family members, and other required patient management activities. This 86 minutes is in excess of all separately billable procedures. Medical Decision Making Laboratory Data Attestation: I reviewed the patient's lab results. 04/11/23 14:52 04/11/23 14:52 Lab Results 04/11/23 04/11/23 Range/Units 14:48 14:52 WBC 8.41 (4.8-10.8) K/ul RBC 5.01 (4.20-5.40) M/uL Hgb 14.8 (12.0-16.0) g/dl Hct 45.9 (37.0-47.0) % MCV 91.6 (80.0-100.0) fL MCH 29.5 (25.0-34.0) pg MCHC 32.2 (32.0-36.0) g/dL RDW Std Deviation 50.3 H (36.4-46.3) fL RDW Coeff of [place] 14.9 H (11.5-14.5) % Plt Count 380 (130-400) K/uL MPV 9.0 L (9.4-12.4) fL Immature Gran % (Auto) 0.4 % Neut % (Auto) 57.8 % Lymph % (Auto) 34.2 % [place] % (Auto) 5.5 % Eos % (Auto) 1.5 % Baso % (Auto) 0.6 % Neut # (Auto) 4.86 (1.40-6.50) K/uL Lymph # (Auto) 2.88 (1.20-3.40) K/uL [place] # (Auto) 0.46 (0.11-0.59) K/uL Eos # (Auto) 0.13 (0.00-0.50) K/uL Baso # (Auto) 0.05 (0.00-0.20) K/uL Immature Gran # (Auto) 0.03 (0.01-0.20) K/uL PT 10.3 (9.0-12.0) Seconds INR 0.9 (0.9-1.1) APTT 28 (21-31) Seconds PTT Ratio 1.0 Sodium 139 (136-145) mmol/L Potassium 4.0 (3.5-5.1) mmol/L Chloride 104 (98-107) mmol/L Carbon Dioxide 24 (21-32) mmol/L Anion Gap 11 (3-11) BUN 14 (6-23) mg/dl Creatinine 0.53 L (0.6-1.2) mg/dl Est Cr Clr Drug Dosing 113.3 ml/min Est GFR ( Amer) 121.3 ml/min Est GFR (Non-Af Amer) 104.7 ml/min BUN/Creatinine Ratio 26.4 H (10-20) Glucose 192 H (70-99(Fasting)) mg/dl POC Glucose 188 H (70-99) mg/dl Calcium 9.5 (8.6-10.3) mg/dl Magnesium 1.8 (1.7-2.4) mg/dl Troponin I High Sens 7.9 (0-14) pg/ml Lipase 21 (11-82) U/L Imaging Data Radiologist's Impression: Cervical Spine CT 04/11/23 14:[address] DOSE: HISTORY: neck pain TECHNIQUE: Multiaxial CT images of the cervical spine were performed and reformatted in the sagittal and coronal plane without the use of contrast. A dose lowering technique was utilized adhering to the principles of ALARA. COMPARISON: Cervical spine CT 08/26/2022. FINDINGS: No fractures. No subluxation. Prevertebral soft tissues and the C1-C2 interval are intact. No pneumothorax. Left-sided pacemaker wires are noted. IMPRESSION: No fractures within the cervical spine. ACT 112: Negative or not required by law. Electronically signed by: Ziggy Huffman M.D. 04/11/2023 3:59 PM Chest X-Ray 04/11/23 14:59 XR chest 1V portable HISTORY: Chest pain, nonspecific COMPARISON: Chest 08/26/2022. FINDINGS: No pneumothorax. No pleural effusions. There is a left-sided pacemaker/defibrillator again noted. No evidence for pulmonary edema. The heart is normal in size. No acute fractures identified. Bibasilar linear densities persist and favor subsegmental atelectasis are scarring. IMPRESSION: No significant change compared to the prior study. No acute process. ACT 112: Negative or not required by law. Electronically signed by: Ziggy Huffman M.D. 04/11/2023 3:[address] 04/11/23 15:[address] DOSE: 1182.04 mGy.cm HISTORY: Headache. Near syncope 30 mins ago TECHNIQUE: Multiaxial CT images of the head were performed without the use of intravenous contrast. Automated exposure control was utilized for this study. A dose lowering technique was utilized adhering to the principles of ALARA. Comparison: Head CT 08/26/2022. Findings: The paranasal sinuses and mastoid air cells are clear. The calvarium and skull base are intact. The ventricles and sulci are within normal limits. There is no mass, hematoma, midline shift, or acute infarct. 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 This is similar to the prior study. Impression: No significant change compared to the prior study. No acute intracranial abnormality. ACT 112: Negative or not required by law. Electronically signed by: Ziggy Huffman M.D. 04/11/2023 3:57 PM ECG Data Attestation: I personally reviewed and interpreted this ECG as follows: Additional Comments: EKG #1 at 1449: Regular wide-complex tachycardia with a rate of 132. QRS [address] elevation or ST depression EKG #2 at 1456 without any pharmacological intervention: sinus rhythm with a rate of 90. PA 168 QRS [address] elevation or ST depression. PVCs present. EKG #3 at 1625: regular wide-complex tachycardia with a rate of 138 QRS [address] elevation or ST depression. Right bundle branch block present. No ST elevation or ST depression. EKG #4 at 1829 status post amiodarone bolus and while amiodarone drip infusing: Sinus rhythm with a rate of 73. PA QRS and QTc intervals within normal limits. No ST elevation or ST depression. PVCs present. [facility] Narrative 1453: The patient was evaluated in room B9. A complete history and physical exam was performed Cardiac monitoring: An order was placed for continuous cardiac monitoring. The monitor shows a rate of 90 with sinus rhythm interpreted by me Patient's initial EKG showed a wide-complex irregular rhythm with heart rate in the 130s and then her EKG normalized to sinus rhythm with fusion complexes and PVCs in the 90s. Will continue to monitor and conduct labs and imaging. 1610: Patient has been in sinus rhythm her vitals are stable labs and imaging within normal limits. Patient be discharged to follow-up PCP. 1625: When the patient was to be discharged by nursing she started having tachycardia again which did look wide and regular. Patient quickly switched between this and a sinus rhythm with a narrow complex. Will contact cardiology on-call Dr. Monsalve to discuss. 1650: Patient keeps alternating between a sinus rhythm with and a irregular narrow complex. Will attempt to give 5 mg IV metoprolol in case this is atrial fibrillation. 1710: No response to metoprolol. Dr. Monsalve was [place] texted the EKGs and states he will get back to us. 1741: Spoke with Dr. Monsalve who states he does think the patient is in V. tach. He recommends interrogating the patient's defibrillator although he states that the defibrillator will not shock for social low rate is probably set in the 150s to 160s to defibrillator. He recommends starting the patient on amiodarone bolus and drip and to admit to the hospitalist team that he will see patient in the morning. 1834: Vital signs stable. Amiodarone bolus given and patient on amiodarone bolus. EKG repeat shows sinus rhythm with rate of 73 with PVCs. Medtronic pacemaker was interrogated and patient was having runs of V. tach. Will continue with plan to admit to [facility] hospitalist team on amiodarone drip. Impression & Plan Near syncope, V tach Discharge Plan Visit Data Chief Complaint: Weakness Stated Complaint: Weakness ED Provider: Joao Mcmullen Discharge Problem: Near syncope, V tach Patient Disposition: Admitted As Inpatient Forms Stand Alone Forms: My [facility], Important Visit Information Prescriptions Prescriptions: No Action aspirin 81 mg Tablet,Chewable 81 mg PO DAILY Qty: 0 Rx Instructions: 02/18/23 PT DENIES TAKING citalopram 20 mg Tablet 20 mg PO DAILY Qty: 0 Rx Instructions: 02/18/23 PT NOT TAKING DUE TO AVAILABILITY montelukast [Singulair] 10 mg Tablet 10 mg PO QAM Qty: 0 Patient Comments: Patient states she is too busy and doesn't have time to take her meds. albuterol sulfate [Ventolin HFA] 90 mcg/actuation Hfa Aerosol Inhaler 2 puff INHALATION Q6H PRN (Reason: asthma) Rx Instructions: 02/18/23 PT NOT CURRENTLY TAKING DUE TO MED AVAILABILITY fenofibrate nanocrystallized [Tricor] 48 mg Tablet 48 mg PO DAILY Patient Comments: Patient states she is too busy and doesn't have time to take her meds Rx Instructions: 02/19/23 PT DENIES TAKING THIS MED DUE TO AVAILABILITY mometasone-formoterol 100-5 mcg/actuation Hfa Aerosol Inhaler 2 puff INHALATION BID Patient Comments: Patient states she is too busy and doesn't have time to take her meds. nitroglycerin 0.4 mg tablet, sublingual 0.4 mg sublingual UD insulin glargine [Lantus Solostar U-100 Insulin] 100 unit/mL (3 mL) insulin pen 60 units SQ QAM Rx Instructions: 02/18/23 PT DENIES TAKING DUE TO AVAILABILITY lisinopril [Zestril] 2.5 mg tablet 2.5 mg PO DAILY Rx Instructions: 02/18/23 PT DENIES TAKING DUE TO AVAILABILITY polyethylene glycol 3350 [Miralax] 17 gram Powder In Packet 17 g PO DAILY PRN (Reason: Constipation) mirtazapine 15 mg tablet 7.5 mg PO HS omega-3 fatty acids Capsule 1,000 mg PO DAILY rosuvastatin 40 mg tablet 40 mg PO DAILY Jardiance 25 mg tablet 25 mg PO DAILY Rx Instructions: 02/18/23 PT DENIES TAKINH DUE TO AVAILABILITY ondansetron HCl 4 mg tablet 4 mg PO Q8 PRN (Reason: Nausea) vitamin B complex Tablet 1 tab PO DAILY metformin 500 mg tablet extended release 24 hr 1,000 mg PO BID diclofenac sodium 1 % Gel 0 g TOPICAL QID PRN (Reason: Pain) Rx Instructions: 02/18/23 PT DENIES USING THIS MED Brilinta 90 mg tablet 90 mg PO AMHS Rx Instructions: 02/18/23 PT NOT CURRENTLY TAKING DUE TO AVAILABILITY isosorbide mononitrate 30 mg Tablet Extended Release 24 Hr 30 mg PO QAM Qty: 30 0RF Rx Instructions: 02/18 23 PT DENIES TAKING DUE TO AVAILABILITY (DME) blood-glucose meter [OneTouch Ultra2 Meter] Misc See Rx Instructions .Route Qty: 1 0RF Rx Instructions: As directed. Check blood glucose twice a day (DME) OneTouch Ultra Test Strip See Rx Instructions .Route Qty: 100 0RF Rx Instructions: As directed. Check blood glucose twice a day (DME) lancets [OneTouch Delica Plus Lancet] 33 gauge misc See Rx Instructions .Route Qty: 100 0RF Rx Instructions: As directed. Check blood glucose twice a day metoprolol succinate 50 mg tablet extended release 24 hr 75 mg PO DAILY Qty: 60 0RF Rx Instructions: 02/18/23 PT DENIES TAKING DUE TO AVAILABILITY. baclofen 10 mg tablet 10 mg PO TID gabapentin 600 mg tablet 600 mg PO BID Referrals Referrals: Jeremiah Foster MD [Primary Care Provider] - (Follow-up in 1-7 days.)
[2023-04-11] MEDS ORDERED: STAT IV Infusion **Titration per Protocol STA (17:36)
[2023-04-11] MEDS ORDERED: 0.2 MICRON FILTER SET 1 EACH IV STA (17:36)
[2023-04-11] MEDS ORDERED: AMIODARONE / D5W 150 MG/100 ML BAG IV STA (17:36)
[2023-04-11] MEDS ORDERED: AMIODARONE IV BOLUS & DRIP IV STA (17:36)
[2023-04-11] MEDS ORDERED: AMIODARONE / D5W 360 MG/200 ML BAG IV ONE (17:46)
[2023-04-11] MEDS ORDERED: FUROSEMIDE INJ 20 MG/2 ML VIAL IV ONE (19:08)
--- NOTE | 2023-04-11 19:21 | History & Physical Report ---
Date of Service April 11, 2023 Assessment & Plan (1) Nonsustained ventricular tachycardia: (2) ICD (implantable cardioverter-defibrillator), dual, in situ: Plan: Admit to telemetry Patient presenting from home with reports of bilateral lower extremity weakness and near fall. Upon arrival to the ED, telemetry revealed intermittent episodes of nonsustained V. tach. Patient with history of V. tach s/p dual-chamber ICD, cardioversion, transient use of amiodarone. Amiodarone discontinued by patient in March 2019 secondary to corneal deposits and visual disturbances. In the ED, received metoprolol 5 mg without improvement. Case discussed with cardiology by ED provider who recommends IV amiodarone bolus and drip. Update resting echo Cardiology consult (3) Chronic HFrEF (heart failure with reduced ejection fraction): (4) CAD (coronary artery disease): (5) Ischemic cardiomyopathy: Plan: Prior EF 25 to 30%, improved to 45 to 50% on echo 08/2022 Due to lower extremity edema and crackles noted on exam, will trial Lasix 10 mg IV x 1 Per review of outpatient records, patient was prescribed Lasix to be taken twice weekly by cardiology however patient states that the pharmacy never filled this prescription Continue ASA, Brilinta, statin, isosorbide, Jardiance, beta-grant, ACEi (6) Leg weakness: (7) Neck pain: Plan: Patient reports ongoing neck pain with bilateral lower extremity weakness and falls/near falls over the past several weeks CT C-spine unremarkable Scheduled to see spine Ortho in May PT/OT (8) Diabetes type 2, uncontrolled: Plan: Hgb A1c 16.0 02/2023 Lantus and NovoLog per protocol while hospitalized (9) COPD (chronic obstructive pulmonary disease): Plan: No signs of acute exacerbation Continue home inhalers (10) History of CVA (cerebrovascular accident): Plan: Continue ASA, Brilinta, statin (11) HTN (hypertension): Plan: Continue lisinopril, metoprolol, isosorbide (12) Diabetic neuropathy: Plan: Chronic, stable Continue gabapentin (13) Tobacco abuse: Plan: Patient counseled regarding tobacco cessation Nicotine patch ordered (14) PTSD (post-traumatic stress disorder): (15) Anxiety: (16) Depression: Plan: Chronic, stable Continue home meds DVT PROPHYLAXIS SQ Lovenox Patient seen collaboration with Dr. Becerra. I spent a total of 75 minutes coordinating, documenting, and providing care for this patient excluding time spent in the performance of separately billed services. This included personally reviewing all current laboratories and imaging studies, medication reconciliation, outpatient chart review, and discussion with specialists. History of Present Illness Chief Complaint: Leg weakness Primary Care Provider: Jeremiah Foster MD 57-year-old female with PMH IDDM, diabetic neuropathy, tobacco abuse, COPD, ischemic cardiomyopathy, chronic HFrEF, CAD, HTN, history of nonsustained V. tach s/p dual-chamber ICD placement, anxiety, PTSD, depression, history of CVA, and other problems listed below who presents to the ED for evaluation of bilateral leg weakness and near fall. History is obtained from the patient and review of outpatient PCP and cardiology records. Patient reports that she was going outside to have a cigarette and when she went to open the door, her legs felt weak like they were going to give out from under her. She reports that someone was able to help her back inside however she felt very off balance. Patient did sustain a fall about 1 week ago at her daughter's place due to similar complaints. Patient denies associated lightheadedness, dizziness, diaphoresis. No chest pain or palpitations. Reports ongoing issues with neck pain over the past several weeks. Is scheduled to see spine Ortho in May. Patient denies any other recent illnesses, fevers, chills. No abdominal pain, nausea, vomiting, diarrhea. Denies urinary symptoms. In the ED, patient was found to be converted between a narrow complex and wide-complex tachycardia. Patient was given metoprolol 5 mg without much improvement in heart rate. Cardiology was contacted by ED provider who recommends amiodarone bolus and drip for treatment of nonsustained V. tach. Allergies Allergy/AdvReac Type Severity Reaction Status Date / Time Bactrim Allergy Severe "SEVERE GI Verified 04/29/17 15:45 UPSET" mold Allergy Severe SNEEZING, Verified 02/18/23 01:37 WATERY EYES, MAY CAUSE SOB-DEPENDS ON MOLD sulfamethoxazole Allergy Severe "SEVERE GI Verified 02/18/23 01:37 UPSET" trimethoprim Allergy Severe "SEVERE GI Verified 02/18/23 01:37 UPSET" adhesive Allergy Intermediate REDNESS, Verified 02/18/23 01:37 ITCHY, BLISTERS Aminoglycosides Allergy Intermediate ITCHY RASH Verified 02/18/23 01:37 bacitracin Allergy Intermediate ITCHY RASH Verified 02/18/23 01:37 neomycin Allergy Intermediate ITCHY RASH Verified 02/18/23 01:37 polymyxin B Allergy Intermediate ITCHY RASH Verified 02/18/23 01:37 Home Medications Medication Instructions Recorded Confirmed Type aspirin 81 mg chewable tablet 81 mg PO DAILY ##0 11/10/14 04/11/23 History citalopram 20 mg tablet 20 mg PO DAILY ##0 09/23/17 04/11/23 History montelukast 10 mg tablet 10 mg PO QAM asthma ##0 09/23/17 04/11/23 History (Singulair) albuterol sulfate 90 mcg/actuation 2 puff inhalation Q6H PRN asthma 08/07/18 04/11/23 History aerosol inhaler (Ventolin HFA) fenofibrate nanocrystallized 48 mg 48 mg PO DAILY 08/07/18 04/11/23 History tablet (Tricor) mometasone-formoterol HFA 100 2 puff inhalation BID 08/07/18 04/11/23 History mcg-5 mcg/actuation aerosol inhaler nitroglycerin 0.4 mg sublingual 0.4 mg sublingual UD 10/11/18 04/11/23 History tablet insulin glargine 100 unit/mL (3 60 units subcut HS 12/18/18 04/11/23 History mL) subcutaneous pen (Lantus Solostar U-100 Insulin) lisinopril 2.5 mg tablet (Zestril) 2.5 mg PO DAILY 12/18/18 04/11/23 History empagliflozin 25 mg tablet 25 mg PO DAILY 05/17/20 04/11/23 History (Jardiance) mirtazapine 15 mg tablet 7.5 mg PO HS 05/17/20 04/11/23 History omega-3 fatty acids 1,000 mg PO DAILY 05/17/20 04/11/23 History polyethylene glycol 3350 17 gram 17 g PO DAILY PRN Constipation 05/17/20 04/11/23 History oral powder packet (Miralax) rosuvastatin 40 mg tablet 40 mg PO DAILY 05/17/20 04/11/23 History diclofenac sodium 1 % topical gel 0 g topical QID PRN Pain 08/26/22 04/11/23 History metformin 500 mg tablet,extended 1,000 mg PO BID 08/26/22 04/11/23 History release 24 hr ondansetron HCl 4 mg tablet 4 mg PO Q8 PRN Nausea 08/26/22 04/11/23 History ticagrelor 90 mg tablet (Brilinta) 90 mg PO AMHS 08/26/22 04/11/23 History vitamin B complex 1 tab PO DAILY 08/26/22 04/11/23 History blood sugar diagnostic (OneTouch #100 ea 08/28/22 04/11/23 Rx Ultra Test strips) blood-glucose meter (OneTouch #1 ea 08/28/22 04/11/23 Rx Ultra2 Meter) isosorbide mononitrate 30 mg 30 mg PO QAM #30 tabs 08/28/22 04/11/23 Rx tablet,extended release 24 hr lancets 33 gauge (OneTouch Delica #100 ea 08/28/22 04/11/23 Rx Plus Lancet) metoprolol succinate 50 mg 75 mg (1.5 x 50 mg) PO DAILY #60 08/28/22 04/11/23 Rx tablet,extended release 24 hr tabs baclofen 10 mg tablet 10 mg PO TID 04/11/23 04/11/23 History gabapentin 600 mg tablet 600 mg PO BID 04/11/23 04/11/23 History insulin aspart U-100 100 unit/mL 10 unit subcut TIDM 04/11/23 04/11/23 History (3 mL) subcutaneous pen Past Med/Surg History Medical History History of CVA (cerebrovascular accident) COPD (chronic obstructive pulmonary disease) PTSD (post-traumatic stress disorder) Depression ICD (implantable cardioverter-defibrillator), dual, in situ Nonsustained ventricular tachycardia Chronic HFrEF (heart failure with reduced ejection fraction) Diabetic neuropathy Closed fracture of right distal radius Ischemic cardiomyopathy Anxiety HTN (hypertension) Diabetes type 2, uncontrolled CAD (coronary artery disease) 1.History of prior inferior ST segment elevation myocardial infarction, status post PTCA and stenting of the RCA 2.Diagnostic cardiac catheterization last performed in September 2018 ([facility]) demonstrated severe multivessel coronary artery disease including the known chronic RCA occlusion, high-grade LAD disease into the D1/D2, status post PCI of LAD and angioplasty of the diagonal branch. Tobacco abuse Genital herpes Surgical History H/O: hysterectomy History of coronary artery stent placement H/O exploratory laparotomy S/P TAO-BSO Previous section Family History Other Cancer Diabetes Heart disease Hypertension Social History Smoking Status: Current every day smoker Tobacco Type: Cigarettes Second Hand Exposure: No; Do You Dip or Chew Tobacco: No; Hx Alcohol Use: No Hx Substance Use: No Preferred Language: German Communication Ability: Effective Ingot Weigher Required: No Beliefs That Will Affect Care: None marital status: Current Living Situation: Alone current occupational status: unemployed Feels Safe at Home: Yes Assistive Devices: None Physical Exam Physical Exam: please refer to Dr. Garcia's addendum for physical exam Results & Data Results & Data Vital Signs (Past 12 Hours) Vital Signs Temp Pulse Pulse Resp BP BP Pulse Ox 04/11/23 18:00 96 H 18 171/96 H 94 04/11/23 17:48 130 H 130/86 04/11/23 16:59 134 H 135/95 04/11/23 16:57 134 H 18 135/95 92 04/11/23 16:04 80 04/11/23 15:32 80 162/86 H 93 04/11/23 14:59 93 04/11/23 14:49 04/11/23 14:49 95 04/11/23 14:49 135 H 20 133/104 H 95 04/11/23 14:49 37.2 C 135 H 20 133/104 H 95 O2 Del Method 04/11/23 18:00 Room Air 04/11/23 17:48 04/11/23 16:59 04/11/23 16:57 Room Air 04/11/23 16:04 04/11/23 15:32 Room Air 04/11/23 14:59 Room Air 04/11/23 14:49 Room Air 04/11/23 14:49 Room Air 04/11/23 14:49 Room Air 04/11/23 14:49 Room Air Laboratory Results Short CBC 04/11/23 Range/Units 14:52 WBC 8.41 (4.8-10.8) K/ul Hgb 14.8 (12.0-16.0) g/dl Hct 45.9 (37.0-47.0) % Plt Count 380 (130-400) K/uL [facility] 04/11/23 14:52 Sodium 139 Potassium 4.0 Chloride 104 Carbon Dioxide 24 BUN 14 Creatinine 0.53 L Glucose 192 H Calcium 9.5 Diagnostic Findings Cervical Spine CT 04/11/23 14:[address] DOSE: HISTORY: neck pain TECHNIQUE: Multiaxial CT images of the cervical spine were performed and reformatted in the sagittal and coronal plane without the use of contrast. A dose lowering technique was utilized adhering to the principles of ALARA. COMPARISON: Cervical spine CT 08/26/2022. FINDINGS: No fractures. No subluxation. Prevertebral soft tissues and the C1-C2 interval are intact. No pneumothorax. Left-sided pacemaker wires are noted. IMPRESSION: No fractures within the cervical spine. ACT 112: Negative or not required by law. Electronically signed by: Ziggy Huffman M.D. 04/11/2023 3:59 PM Chest X-Ray 04/11/23 14:59 XR chest 1V portable HISTORY: Chest pain, nonspecific COMPARISON: Chest 08/26/2022. FINDINGS: No pneumothorax. No pleural effusions. There is a left-sided pacemaker/defibrillator again noted. No evidence for pulmonary edema. The heart is normal in size. No acute fractures identified. Bibasilar linear densities persist and favor subsegmental atelectasis are scarring. IMPRESSION: No significant change compared to the prior study. No acute process. ACT 112: Negative or not required by law. Electronically signed by: Ziggy Huffman M.D. 04/11/2023 3:[address] 04/11/23 15:[address] DOSE: 1182.04 mGy.cm HISTORY: Headache. Near syncope 30 mins ago TECHNIQUE: Multiaxial CT images of the head were performed without the use of intravenous contrast. Automated exposure control was utilized for this study. A dose lowering technique was utilized adhering to the principles of ALARA. Comparison: Head CT 08/26/2022. Findings: The paranasal sinuses and mastoid air cells are clear. The calvarium and skull base are intact. The ventricles and sulci are within normal limits. There is no mass, hematoma, midline shift, or acute infarct. 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 This is similar to the prior study. Impression: No significant change compared to the prior study. No acute intracranial abnormality. ACT 112: Negative or not required by law. Electronically signed by: Ziggy Huffman M.D. 04/11/2023 3:57 PM Code Status & VTE Plan VTE Prophylaxis Plan VTE Prophylaxis will be ordered: Yes Supervising Physician Co-Signing Physician Notes I have seen and discussed the case with the collaborating VETERINARY LABORATORY TECHNICIAN. I agree with the above H&P. I have reviewed and confirmed the patients medical history, the findings on physical examination, and the patients diagnosis and treatment plan with Love VETERINARY LABORATORY TECHNICIAN and agree with the information documented.In short, Ms Valdes is a 57 year old woman with past medical history notable for HFrecEF 2/2 severe ICM with high grade disease, HTN, chronic tobacco use, SVT previously s/p cardioversion [self discontinued 2/2 'vision changes' and deposits], as well as other comorbidities, who presented to ED for near fall, and found to be in wide- complex VT. Patient briefly coverted to NSR, then subsequently converted back to VT with rates in 140-150s. ED started patient on amiodarone after cards consulted. Patient adamant she did not syncopize, nor have any prodromal symptoms. She states her BLE became weak and she lost balance. This, however, is not the first time. Daughter reports fall at her house while patient was ambulating on straight/level ground. Chart review reveals ongoing history of medication noncompliance/appointments missed. Patient denies any chest pain, palpitations/fluttering, ICD discharges. She notes edema in her legs, she attributes to gabapentin increase. She is unable to endorse/deny orthopnea as she sits up right to sleep secondary neck pain. When discussing amiodarone, she states she had experienced not only deposits but actual vision changes with amiodarone. Physical exam: Constitutional: AO4, conversational but easily distracted, seems minimize medical history/presenation/ongoing events HEENT: NCAT, MMM, oropharynx clear, dentition intact CV: converted to NSR during exam, initially rates in 140s, but upon auscultation converted to rates of 70s with regular sounds rhythm and no apparent murmur/gallop RESP: good airway movement, but bilateral coarse crackles on exam MSK: sensation, proprioception, and strength intact in BLE. 2+ edema of BLE up to mid calf, tense/tender. GI: soft NTND Neuro: No focal neurodeficits apparent on exam, 5/5 strength BUE/LE. Cranial nerves in tact Plan #SVT, Wide complex #HFrecEF 2/2 ICM s/p AICD placement -Appears to have converted with addition of IV amiodarone -Plan for device check to determine duration of arrhythmia (?contributing to falls, or rather isolated occurance given lack of cardiac/prodromal symptoms reported) -Resume home meds -Discuss alternative for amiodarone given concerns regarding vision changes historically -Cardiology consulted, further recs to follow -IV lasix 10mg #Neck Pain #Ambulatory dysfucntion #Peripheral neuropathy 2/2 DM -C-spine CT negative, propriorception intact -PT/OT consult -Ortho Spine visit OP scheduled in 05/2023, given concerns consider more spine imaging contingent on course v Ortho inpatient consult #COPD #Tobacco use -Schedule mucinex, resume home inhalers -No wheezing, does not seem to be in exacerbation -Nictotine patch, encouraged cessation Rest of plan as above. (4) CAD (coronary artery disease) Associated angina: with stable angina Coronary Disease-Associated Artery/[place] type: [place] artery [place] vs. transplanted heart: [place] heart Qualified Code(s): I25.118 - Atherosclerotic heart disease of [place] coronary artery with other forms of angina pectoris (8) Diabetes type 2, uncontrolled Glycemic state: with hyperglycemia Qualified Code(s): E11.65 - Type 2 diabetes mellitus with hyperglycemia
[2023-04-11] MEDS ORDERED: CARBOHYDRATES FOR HYPOGLYCEMIA PO PRN (21:05)
[2023-04-11] MEDS ORDERED: ACETAMINOPHEN 325 MG TAB PO PRN (21:05)
[2023-04-11] MEDS ORDERED: GLUCAGON FOR INJ 1 MG VIAL SQ PRN (21:05)
[2023-04-11] MEDS ORDERED: PHARMACY GLYCEMIC MGMT CONSULT PRN (21:05)
[2023-04-11] MEDS ORDERED: DEXTROSE 50% 50 ML SYRINGE IV PRN (21:05)
[2023-04-11] MEDS ORDERED: GLUCOSE 40% GEL 15 GM TUBE PO PRN (21:05)
[2023-04-11] MEDS ORDERED: GLUCOSE 10 TAB/TUBE PO PRN (21:05)
[2023-04-11] MEDS ORDERED: PNEUMOCOCCAL VACCINE (PCV20) 20-VAL CONJ-DIP CRM/PF 0.5 ML SYR IM ONE (21:18)
[2023-04-11] MEDS ORDERED: LANTUS PER UNIT CHARGE SQ SCH (21:45)
[2023-04-11] MEDS: MIRTAZAPINE TAB 15 MG TAB PO SCH (22:07)
[2023-04-11] MEDS: ENOXAPARIN INJ 40 MG/0.4 ML SYR SQ SCH (22:07)
[2023-04-11] MEDS: TICAGRELOR 90 MG TAB PO SCH (22:07)
[2023-04-11] MEDS: INSULIN ASPART PER UNIT CHARGE SC SCH (22:08)
[2023-04-11] MEDS: GABAPENTIN 600 MG TAB PO SCH (22:10)
[2023-04-11] MEDS: BACLOFEN 10 MG TAB PO SCH (22:10)
[2023-04-11] MEDS: AMIODARONE / D5W 360 MG/200 ML BAG IV SCH (23:37)
--- NOTE | 2023-04-12 06:43 | Electrocardiogram Report ---
Test Reason : Blood Pressure : / mmHG Vent. Rate : 132 BPM Atrial Rate : 000 BPM P-R Int : 000 ms QRS Dur : 122 ms QT Int : 374 ms P-R-T Axes : 000 -43 118 degrees QTc Int : 554 ms Atrial fibrillation with rapid ventricular response Left axis deviation Right bundle branch block Minimal voltage criteria for LVH, may be normal variant ( Chris product ) Inferior infarct , age undetermined Anterolateral infarct , age undetermined Abnormal ECG When compared with ECG of 26-AUG-2022 18:58, Right bundle branch block is now Present HR has increased Confirmed by Moi Weinberg ([id number]) on 04/12/2023 6:43:09 AM Referred By: Confirmed By:Moi Weinberg
--- NOTE | 2023-04-12 06:45 | Electrocardiogram Report ---
Test Reason : Blood Pressure : / mmHG Vent. Rate : 090 BPM Atrial Rate : 090 BPM P-R Int : 168 ms QRS Dur : 106 ms QT Int : 388 ms P-R-T Axes : 044 -10 108 degrees QTc Int : 474 ms Sinus rhythm with Premature atrial complexes with aberrant conduction Minimal voltage criteria for LVH, may be normal variant ( R in aVL ) Inferior infarct , age undetermined Anteroseptal infarct , age undetermined Abnormal ECG When compared with ECG of 11-APR-2023 14:49, (unconfirmed) HR has decreased Confirmed by Moi Weinberg ([id number]) on 04/12/2023 6:44:54 AM Referred By: REFERRED SELF Confirmed By:Moi Weinberg
[2023-04-12 07:20] LABS: Hematocrit (blood only) 48.6 % (37.0-47.0); Hemoglobin 15.1 g/dl (12.0-16.0); Mean Corpuscular Hemoglobin 28.7 pg (25.0-34.0); Mean Corpuscular Hgb Conc 31.1 g/dL (32.0-36.0); Mean Corpuscular Volume 92.4 fL (80.0-100.0); Mean Platelet Volume 8.9 fL (9.4-12.4); Platelet Count 377 K/uL (130-400); RDW Coefficient of Variation 14.9 % (11.5-14.5); RDW Standard Deviation 50.8 fL (36.4-46.3); Red Blood Count 5.26 M/uL (4.20-5.40); White Blood Count 10.11 K/ul (4.8-10.8)
[2023-04-12 07:36] LABS: BUN Creatinine Ratio 21.1 (10-20); Calcium 9.4 mg/dl (8.6-10.3); Creatinine Clr Calc Pharmacy 83.1 ml/min; Est GFR (African American) 108.8 ml/min; Est GFR (Non-African American) 93.9 ml/min; Magnesium 1.8 mg/dl (1.7-2.4)
[2023-04-12] MEDS: INSULIN ASPART PER UNIT CHARGE SC SCH ×4 (07:53→20:05)
[2023-04-12 08:32] LABS: Estimated Average Glucose 326 mg/dl
[2023-04-12] MEDS: GABAPENTIN 600 MG TAB PO SCH ×2 (09:06→20:07)
[2023-04-12] MEDS: BACLOFEN 10 MG TAB PO SCH ×3 (09:06→20:07)
[2023-04-12] MEDS: TICAGRELOR 90 MG TAB PO SCH ×2 (09:07→20:07)
[2023-04-12] MEDS: FENOFIBRATE NANOCRYSTALLIZED 48 MG TABLET PO SCH (09:07)
[2023-04-12] MEDS: ISOSORBIDE MONO EXTENDED REL 30 MG TABCR PO SCH (09:08)
[2023-04-12] MEDS: ROSUVASTATIN CALCIUM 20 MG TAB PO SCH (09:08)
[2023-04-12] MEDS: MONTELUKAST SODIUM 10 MG TABLET PO SCH (09:08)
[2023-04-12] MEDS: CITALOPRAM 20 MG TAB PO SCH (09:08)
[2023-04-12] MEDS: EMPAGLIFLOZIN 25 MG TAB PO SCH (09:09)
[2023-04-12] MEDS: ASPIRIN 81 MG ECTAB PO SCH (09:09)
[2023-04-12] MEDS: METOPROLOL SUCC 25MG EXT REL TAB PO SCH (09:09)
[2023-04-12] MEDS: lisinopril 2.5 MG TAB PO SCH (09:09)
[2023-04-12] MEDS: NICOTINE 21 MG/24 HR TDSY TD SCH (09:09)
[2023-04-12] MEDS: FLUTICASONE/VILANTEROL 100/25MCG 14 PUFFS/INHALER INH SCH (09:13)
[2023-04-12] MEDS: AMIODARONE / D5W 360 MG/200 ML BAG IV SCH ×2 (11:14→23:47)
--- NOTE | 2023-04-12 12:26 | Hospitalist Progress Note ---
Date of Service April 12, 2023 Assessment & Plan (1) Nonsustained ventricular tachycardia: (2) ICD (implantable cardioverter-defibrillator), dual, in situ: Plan: Patient presented from home with reports of bilateral lower extremity weakness and near fall. Upon arrival to the ED, telemetry revealed intermittent episodes of nonsustained V. tach. Patient with history of V. tach s/p dual-chamber ICD, cardioversion, transient use of amiodarone. Amiodarone discontinued by patient in March 2019 secondary to corneal deposits and visual disturbances. In the ED, received metoprolol 5 mg without improvement. Case discussed with cardiology by ED provider who recommends IV amiodarone bolus and drip. Patient currently on amiodarone drip TTE noted mild to mod increased LV wall thickness in segments without wall motion abnormality. Focal basal septum thickening without evidence of LV outflow obstruction. Large sized apical, septal, anteroseptal and inferior wall motion abnormality with hypokinesis to dyskinesis of segments. Small sized inferior an eurysm, EF 45-50%, G II DD, mild AV sclerosis, mild MR (findings similar to TTE from 08/27/22) Trop on admission was normal Will await Cardiology evaluation (3) Chronic HFrEF (heart failure with reduced ejection fraction): (4) CAD (coronary artery disease): (5) Ischemic cardiomyopathy: Plan: Prior EF 25 to 30%, improved to 45 to 50% on echo 08/2022 Per review of outpatient records, patient was prescribed Lasix to be taken twice weekly by cardiology.However, per admitting provider patient states that the pharmacy never filled this prescription Continue ASA, Brilinta, statin, isosorbide, Jardiance, metoprolol succinate and lisinopril (6) Leg weakness: (7) Neck pain: Plan: Patient reports ongoing neck pain with bilateral lower extremity weakness and falls/near falls over the past several weeks CT C-spine unremarkable Scheduled to see spine Ortho in May PT/OT (8) Diabetes type 2, uncontrolled: Plan: Hgb A1c 16.0 02/2023 HbA1c is 13 today Lantus and NovoLog per protocol while hospitalized Provided DM education Monitor blood glucose inpatient and insulin requirement (9) COPD (chronic obstructive pulmonary disease): Plan: No signs of acute exacerbation Continue home inhalers (10) History of CVA (cerebrovascular accident): Plan: Continue ASA, Brilinta, statin (11) HTN (hypertension): Plan: Continue lisinopril, metoprolol, isosorbide (12) Diabetic neuropathy: Plan: Continue gabapentin (13) Tobacco abuse: Plan: Smokes 1 ppd Patient counseled regarding tobacco cessation Continue nicotine patch (14) PTSD (post-traumatic stress disorder): (15) Anxiety: (16) Depression: Plan: Chronic, stable Continue home meds DVT PROPHYLAXIS SQ Lovenox I spent a total of 55 minutes coordinating, documenting and providing care for this patient excluding time spent in performance of separately billed services Admission and Anticipated Discharge Date Admission Date: April 11, 2023 Subjective Patient seen and examined Reports chronic back pains Denied any chest pain, palpitations, dizziness Denied cough, shortness of breath Denied fever, chills, nausea, vomiting, abd pain, diarrhea Denied dysuria, freq, urgency Physical Exam Constitutional: + well hydrated; no acute distress Eyes: PERRL, conjunctivae normal, anicteric sclerae ENMT: external ear and nose normal, oropharynx normal Respiratory: normal respiratory effort, lungs clear to auscultation Cardiovascular: Rate/Rhythm: regular rate and regular rhythm S1 S2 Gastrointestinal (Abdomen): normal bowel sounds, soft, nontender, no hepatosplenomegaly Musculoskeletal: no cyanosis or clubbing, extremities motor strength 5/5 Neurologic: PERRL, EOMI, accommodation nl, no face palsy, no dysarthria Psychiatric: A+Ox3, euthymic affect Results & Data Results & Data Vital Signs (Past 12 Hours) Vital Signs Temp Pulse Pulse Resp BP Pulse Ox O2 Del Method 04/12/23 11:50 36.5 C 71 16 103/64 92 Room Air 04/12/23 09:10 72 125/74 04/12/23 08:06 36.7 C 56 L 16 118/73 99 Room Air 04/12/23 07:30 134 H 142/83 H 04/12/23 03:00 36.5 C 63 16 127/78 95 Room Air 04/12/23 02:42 85 Laboratory Results Abnormal lab results 04/11/23 04/11/23 04/11/23 Range/Units 14:48 14:52 21:51 Hct (37.0-47.0) % MCHC (32.0-36.0) g/dL RDW Std Deviation 50.3 H (36.4-46.3) fL RDW Coeff of [place] 14.9 H (11.5-14.5) % MPV 9.0 L (9.4-12.4) fL Creatinine 0.53 L (0.6-1.2) mg/dl BUN/Creatinine Ratio 26.4 H (10-20) Glucose 192 H (70-99(Fasting)) mg/dl POC Glucose 188 H 180 H (70-99) mg/dl Hemoglobin A1c (4.5-5.6) % 04/12/23 04/12/23 04/12/23 Range/Units 06:44 07:27 11:01 Hct 48.6 H (37.0-47.0) % MCHC 31.1 L (32.0-36.0) g/dL RDW Std Deviation 50.8 H (36.4-46.3) fL RDW Coeff of [place] 14.9 H (11.5-14.5) % MPV 8.9 L (9.4-12.4) fL Creatinine (0.6-1.2) mg/dl BUN/Creatinine Ratio 21.1 H (10-20) Glucose 187 H (70-99(Fasting)) mg/dl POC Glucose 177 H 147 H (70-99) mg/dl Hemoglobin A1c 13.0 H (4.5-5.6) % (4) CAD (coronary artery disease) Associated angina: with stable angina Coronary Disease-Associated Artery/[place] type: [place] artery [place] vs. transplanted heart: [place] heart Qualified Code(s): I25.118 - Atherosclerotic heart disease of [place] coronary artery with other forms of angina pectoris (8) Diabetes type 2, uncontrolled Glycemic state: with hyperglycemia Qualified Code(s): E11.65 - Type 2 diabetes mellitus with hyperglycemia
--- NOTE | 2023-04-12 14:52 | Pharmacy Report ---
Pharmacy Glycemic Short Note 2 - Date of Service April 12, 2023 - Glycemic Short BSG Results (Last 24 hours): 04/11/23 04/11/23 04/11/23 14:48 14:52 21:51 Glucose 192 H POC Glucose 188 H 180 H 04/12/23 04/12/23 04/12/23 06:44 07:27 11:01 Glucose 187 H POC Glucose 177 H 147 H OUTPATIENT ANTIDIABETIC REGIMEN: * Lantus 60 units SC HS * Metformin 1000 mg PO BID * Jardiance 25 mg PO daily * HbA1c: 13.0% (04/12/23) ASSESSMENT: * 57 yo F admitted on 04/11/23 secondary to ventricular tachycardia. Pharmacy has been consulted to assist with inpatient glycemic management. Patient is a Type 2 diabetic as an outpatient. Please refer to outpatient regimen and most recent HbA1c above. * Initial BSG in the ED was 188 mg/dL. Upon admit, BSG was 180 mg/dL. Given 40 units of basal last evening and starte don Novolog based on weight/stress of 3. * Fasting BSG was 177 mg/dL this AM. Will increase basal by ~20% this evening. Receiving 25 mg of Jardiance daily from home. Given trend down in lunchtime BSG will loosen carb ratio this evening. * Currently infusing amiodarone. No other stressors. Tolerating diet well. PLAN FOR INPATIENT GLYCEMIC CONTROL: * Hold outpatient Metformin * Receiving 25 mg PO Jardiance daily * Basal insulin * Lantus 50 units SC HS * Bolus insulin * NovoLog per scale ACHS or Q6hrs while NPO * Goal Range: Low 110 mg/dL - High 140 mg/dL * Correction Factor: 15 mg/dL/unit * Nutritional / Prandial insulin per carb ratio of 1 unit per 6 grams CHO consumed
--- NOTE | 2023-04-12 15:50 | Cardiology Consultation ---
Date of Consultation April 12, 2023 Assessment & Plan (1) Nonsustained ventricular tachycardia: (2) Near syncope: (3) Ischemic cardiomyopathy: (4) ICD (implantable cardioverter-defibrillator), dual, in situ: (5) Tobacco abuse: Plan 57-year-old female admitted with fall, possible near syncope. Unclear whether episodes of nonsustained ventricular tachycardia were related to admission symptoms. Will perform detailed ICD interrogation tomorrow with aid from [employer] bottle house quality control technician. Remains asymptomatic at rest during episodes of nonsustained VT while hospitalized. Echocardiogram stable. Suspect scar- mediated ventricular tachycardia. No evidence of acute ischemia/ACS. Recommend continue intravenous amiodarone and oral beta-grant. Consider transition to oral amiodarone in a.m. 04/13/2023. Monitor telemetry. Will discuss case further with electrophysiology regarding ICD programming, ongoing treatment with amiodarone, and consideration for ventricular tachycardia ablation. I spent a total of 65 minutes on the date of service in preparation, delivery, and documentation of the care provided to this patient, excluding any time spent in the performance of separately billed services. History of Present Illness Reason for Consultation: Near syncope, abnormal ECG, ventricular tachycardia Requesting Physician: Dr. Mcmullen Attending Physician: Lilliana Cho MD History of Present Illness 57-year-old female present to the emergency department due to abrupt weakness involving her lower extremities and fall. Patient denies overt syncope. In the ER, telemetry revealing runs of nonsustained ventricular tachycardia. I was con tacted last night by the ER physician with questions regarding further management. Patient prescribed IV amiodarone and admitted to the progressive care unit. Telemetry reveals several runs of nonsustained ventricular tachycardia with heart rates ranging from 131-146 bpm overnight. Denies palpitations, lightheadedness, or dizziness. Patient denies any chest discomfort or palpitations associated with her fall prompting ER evaluation. Review of ICD interrogation reveals 45 episodes of nonsustained ventricular tachycardia lasting more than 4 beats. No therapies delivered. Currently resting comfortably. Lying supine without shortness of breath. Denies any weight gain, or edema. States she is compliant with beta-grant therapy. Amiodarone discontinued in 2019 due to possible visual disturbance and evidence of corneal deposits per her wildlife policy professional. Echocardiogram performed on admission demonstrates apical, septal, anteroseptal, and inferior wall motion abnormality with hypokinesis to dyskinesis of the segments and a small size inferior aneurysm. Left ventricular ejection fraction is stable at 45-50%. Complex cardiovascular history noted below. Cardiac history: 1. History of near syncope attributed to hypoglycemia versus hypotension 2. Chronic coronary artery disease, severe ischemic cardiomyopathy. EF 25 to 30% (September 2018); 45 to 50% (August 27, 2022) 3. Inferior ST segment elevation myocardial infarction, status post PTCA and stenting of the RCA 4. Cardiac catheterization last in September 2018 ([facility]) with severe multivessel CAD (chronic RCA occlusion, high-grade LAD disease into the D1/D2 S/P PCI of LAD and angioplasty of the diagonal). 5. NYHA Class III 6. Sustained VT S/P cardioversion, transient use of amiodarone. Amiodarone discontinued by patient in March 2019 (visual disturbance and corneal deposits). 7. October 17, 2018 dual chamber ICD implantation. 8. Hypertension 9. Dyslipidemia. LDL goal less than 70 mg/dL. 10. Chronic tobacco abuse, COPD 11. Type II diabetes mellitus 12. Depression, PTSD, anxiety. 13. Noncompliance Allergies Allergy/AdvReac Type Severity Reaction Status Date / Time Bactrim Allergy Severe "SEVERE GI Verified 04/29/17 15:45 UPSET" mold Allergy Severe SNEEZING, Verified 02/18/23 01:37 WATERY EYES, MAY CAUSE SOB-DEPENDS ON MOLD sulfamethoxazole Allergy Severe "SEVERE GI Verified 02/18/23 01:37 UPSET" trimethoprim Allergy Severe "SEVERE GI Verified 02/18/23 01:37 UPSET" adhesive Allergy Intermediate REDNESS, Verified 02/18/23 01:37 ITCHY, BLISTERS Aminoglycosides Allergy Intermediate ITCHY RASH Verified 02/18/23 01:37 bacitracin Allergy Intermediate ITCHY RASH Verified 02/18/23 01:37 neomycin Allergy Intermediate ITCHY RASH Verified 02/18/23 01:37 polymyxin B Allergy Intermediate ITCHY RASH Verified 02/18/23 01:37 Home Medications Medication Instructions Recorded Confirmed Type aspirin 81 mg chewable tablet 81 mg PO DAILY ##0 11/10/14 04/11/23 History citalopram 20 mg tablet 20 mg PO DAILY ##0 09/23/17 04/11/23 History montelukast 10 mg tablet 10 mg PO QAM asthma ##0 09/23/17 04/11/23 History (Singulair) albuterol sulfate 90 mcg/actuation 2 puff inhalation Q6H PRN asthma 08/07/18 04/11/23 History aerosol inhaler (Ventolin HFA) fenofibrate nanocrystallized 48 mg 48 mg PO DAILY 08/07/18 04/11/23 History tablet (Tricor) mometasone-formoterol HFA 100 2 puff inhalation BID 08/07/18 04/11/23 History mcg-5 mcg/actuation aerosol inhaler nitroglycerin 0.4 mg sublingual 0.4 mg sublingual UD 10/11/18 04/11/23 History tablet insulin glargine 100 unit/mL (3 60 units subcut HS 12/18/18 04/11/23 History mL) subcutaneous pen (Lantus Solostar U-100 Insulin) lisinopril 2.5 mg tablet (Zestril) 2.5 mg PO DAILY 12/18/18 04/11/23 History empagliflozin 25 mg tablet 25 mg PO DAILY 05/17/20 04/11/23 History (Jardiance) mirtazapine 15 mg tablet 7.5 mg PO HS 05/17/20 04/11/23 History omega-3 fatty acids 1,000 mg PO DAILY 05/17/20 04/11/23 History polyethylene glycol 3350 17 gram 17 g PO DAILY PRN Constipation 05/17/20 04/11/23 History oral powder packet (Miralax) rosuvastatin 40 mg tablet 40 mg PO DAILY 05/17/20 04/11/23 History diclofenac sodium 1 % topical gel 0 g topical QID PRN Pain 08/26/22 04/11/23 History metformin 500 mg tablet,extended 1,000 mg PO BID 08/26/22 04/11/23 History release 24 hr ondansetron HCl 4 mg tablet 4 mg PO Q8 PRN Nausea 08/26/22 04/11/23 History ticagrelor 90 mg tablet (Brilinta) 90 mg PO AMHS 08/26/22 04/11/23 History vitamin B complex 1 tab PO DAILY 08/26/22 04/11/23 History blood sugar diagnostic (OneTouch #100 ea 08/28/22 04/11/23 Rx Ultra Test strips) blood-glucose meter (OneTouch #1 ea 08/28/22 04/11/23 Rx Ultra2 Meter) isosorbide mononitrate 30 mg 30 mg PO QAM #30 tabs 08/28/22 04/11/23 Rx tablet,extended release 24 hr lancets 33 gauge (OneTouch Delica #100 ea 08/28/22 04/11/23 Rx Plus Lancet) metoprolol succinate 50 mg 75 mg (1.5 x 50 mg) PO DAILY #60 08/28/22 04/11/23 Rx tablet,extended release 24 hr tabs baclofen 10 mg tablet 10 mg PO TID 04/11/23 04/11/23 History gabapentin 600 mg tablet 600 mg PO BID 04/11/23 04/11/23 History insulin aspart U-100 100 unit/mL 10 unit subcut TIDM 04/11/23 04/11/23 History (3 mL) subcutaneous pen Patient History Medical History History of CVA (cerebrovascular accident) COPD (chronic obstructive pulmonary disease) PTSD (post-traumatic stress disorder) Depression ICD (implantable cardioverter-defibrillator), dual, in situ Nonsustained ventricular tachycardia Chronic HFrEF (heart failure with reduced ejection fraction) Diabetic neuropathy Closed fracture of right distal radius Ischemic cardiomyopathy Anxiety HTN (hypertension) Diabetes type 2, uncontrolled CAD (coronary artery disease) 1.History of prior inferior ST segment elevation myocardial infarction, status post PTCA and stenting of the RCA 2.Diagnostic cardiac catheterization last performed in September 2018 ([facility]) demonstrated severe multivessel coronary artery disease including the known chronic RCA occlusion, high-grade LAD disease into the D1/D2, status post PCI of LAD and angioplasty of the diagonal branch. Tobacco abuse Genital herpes Surgical History H/O: hysterectomy History of coronary artery stent placement H/O exploratory laparotomy S/P TAO-BSO Previous section Family History Other Cancer Diabetes Heart disease Hypertension Social History Smoking Status: Current every day smoker Tobacco Type: Cigarettes Cigarettes Per Day: 1 ppd; Second Hand Exposure: No; Do You Dip or Chew Tobacco: No; Hx Alcohol Use: No Hx Substance Use: No Preferred Language: Belarusian Communication Ability: Effective Electromyographic Technician Required: No Beliefs That Will Affect Care: None marital status: Current Living Situation: Alone current occupational status: unemployed Feels Safe at Home: Yes Safety Concerns: Feels Safe At This Time Assistive Devices: Glasses and Walker Assistive Devices Comment: Glasses at bedside, rolling walker at home Review of Systems Review of Systems: All systems reviewed & are unremarkable except as noted in Subjective Physical Exam Constitutional: well nourished; no acute distress Respiratory: no respiratory distress, no labored breathing and no retractions Auscultation: no crackles, no rales, no rhonchi and no wheezes Cardiovascular: Rate/Rhythm: regular rate and regular rhythm Heart Sounds: normal S1, normal S2 and + murmur (1/6 systolic ejection murmur heard at the base.) Vessels: radial pulses present; no JVD Extremities: no edema Gastrointestinal (Abdomen): Inspection/Auscultation: normal bowel sounds; abdomen not distended Percussion/Palpation: abdomen soft; abdomen nontender, no guarding and abdomen not rigid Neurologic: CN's II-XI intact bilaterally and moves all extremities Results & Data Vital Signs (Past 12 Hours) Vital Signs Temp Pulse Resp BP Pulse Ox O2 Del Method 04/12/23 15:18 36.5 C 112 H 20 139/82 93 Room Air 04/12/23 11:50 36.5 C 71 16 103/64 92 Room Air 04/12/23 09:10 72 125/74 04/12/23 08:06 36.7 C 56 L 16 118/73 99 Room Air 04/12/23 07:30 134 H 142/83 H Laboratory Results Cardiac Enzymes 04/11/23 Range/Units 19:08 B-Natriuretic Peptide 63 (0-100) pg/ml Coagulation 04/11/23 04/11/23 Range/Units 14:52 19:08 PT 10.3 (9.0-12.0) Seconds APTT 28 (21-31) Seconds B-Natriuretic Peptide 63 (0-100) pg/ml CBC 04/12/23 Range/Units 06:44 WBC 10.11 (4.8-10.8) K/ul RBC 5.26 (4.20-5.40) M/uL Hgb 15.1 (12.0-16.0) g/dl Hct 48.6 H (37.0-47.0) % Plt Count 377 (130-400) K/uL Comprehensive Metabolic Panel 04/12/23 Range/Units 06:44 Sodium 138 (136-145) mmol/L Potassium 4.0 (3.5-5.1) mmol/L Chloride 102 (98-107) mmol/L Carbon Dioxide 27 (21-32) mmol/L BUN 15 (6-23) mg/dl Creatinine 0.71 (0.6-1.2) mg/dl Glucose 187 H (70-99(Fasting)) mg/dl Calcium 9.4 (8.6-10.3) mg/dl Intake and Output 04/12/23 04/12/23 04/12/23 06:59 14:59 22:59 Intake Total 546.245 / 780.000 193.998 / 673.998 480 / 673.998 Output Total Balance 545.245 / 779.000 193.998 / 673.998 480 / 673.998 Intake: IV 66.245 / 300.000 193.998 / 193.998 Amiodarone / D5w 360 mg In 200 66.245 / 200.000 193.998 / 193.998 ml @ 0.5 MG/MIN 16.667 mls/hr IV .Q12H [facility] Rx#:[id number] Oral 480 / 480 480 / 480 Output: # Bowel Movements Other: # Unmeasured Voids 1 Weight 73.7 kg
[2023-04-12] MEDS: ENOXAPARIN INJ 40 MG/0.4 ML SYR SQ SCH (20:06)
[2023-04-12] MEDS: MIRTAZAPINE TAB 15 MG TAB PO SCH (20:08)
[2023-04-12] MEDS ORDERED: LANTUS PER UNIT CHARGE SQ SCH (21:00)
[2023-04-13] MEDS: NICOTINE 21 MG/24 HR TDSY TD SCH (01:31)
[2023-04-13 07:02] LABS: Hematocrit (blood only) 44.6 % (37.0-47.0); Hemoglobin 14.1 g/dl (12.0-16.0); Mean Corpuscular Hemoglobin 28.7 pg (25.0-34.0); Mean Corpuscular Hgb Conc 31.6 g/dL (32.0-36.0); Mean Corpuscular Volume 90.8 fL (80.0-100.0); Mean Platelet Volume 8.7 fL (9.4-12.4); Platelet Count 380 K/uL (130-400); RDW Coefficient of Variation 14.7 % (11.5-14.5); Red Blood Count 4.91 M/uL (4.20-5.40); White Blood Count 11.97 K/ul (4.8-10.8)
[2023-04-13 07:21] LABS: BUN Creatinine Ratio 26.6 (10-20); Calcium 9.2 mg/dl (8.6-10.3); Creatinine Clr Calc Pharmacy 91.7 ml/min; Est GFR (Non-African American) 98.4 ml/min; Magnesium 1.9 mg/dl (1.7-2.4); Phosphorus 4.5 mg/dl (2.5-4.9); Potassium 3.5 mmol/L (3.5-5.1)
[2023-04-13] MEDS ORDERED: POTASSIUM CHLORIDE CRTAB 20 MEQ TABCR PO STA (07:49)
[2023-04-13] MEDS: INSULIN ASPART PER UNIT CHARGE SC SCH ×4 (08:10→20:46)
[2023-04-13] MEDS: lisinopril 2.5 MG TAB PO SCH (08:12)
[2023-04-13] MEDS: BACLOFEN 10 MG TAB PO SCH ×3 (08:12→20:49)
[2023-04-13] MEDS: METOPROLOL SUCC 25MG EXT REL TAB PO SCH (08:12)
[2023-04-13] MEDS: TICAGRELOR 90 MG TAB PO SCH ×2 (08:14→20:48)
[2023-04-13] MEDS: FENOFIBRATE NANOCRYSTALLIZED 48 MG TABLET PO SCH (08:14)
[2023-04-13] MEDS: CITALOPRAM 20 MG TAB PO SCH (08:14)
[2023-04-13] MEDS: EMPAGLIFLOZIN 25 MG TAB PO SCH (08:14)
[2023-04-13] MEDS: MONTELUKAST SODIUM 10 MG TABLET PO SCH (08:14)
[2023-04-13] MEDS: ISOSORBIDE MONO EXTENDED REL 30 MG TABCR PO SCH (08:14)
[2023-04-13] MEDS: ROSUVASTATIN CALCIUM 20 MG TAB PO SCH (08:14)
[2023-04-13] MEDS: FLUTICASONE/VILANTEROL 100/25MCG 14 PUFFS/INHALER INH SCH (08:15)
[2023-04-13] MEDS: ASPIRIN 81 MG ECTAB PO SCH (08:15)
[2023-04-13] MEDS: GABAPENTIN 600 MG TAB PO SCH ×2 (08:15→20:48)
--- NOTE | 2023-04-13 10:11 | Electrocardiogram Report ---
Test Reason : Blood Pressure : / mmHG Vent. Rate : 071 BPM Atrial Rate : 071 BPM P-R Int : 164 ms QRS Dur : 112 ms QT Int : 540 ms P-R-T Axes : 043 -05 097 degrees QTc Int : 586 ms Normal sinus rhythm Possible Left atrial enlargement Inferior infarct (cited on or before 26-AUG-2022) Anterolateral infarct (cited on or before 14-OCT-2018) Prolonged QT Abnormal ECG When compared with ECG of 11-APR-2023 18:29, (unconfirmed) Premature ventricular complexes are no longer Present QT has lengthened Confirmed by Leonel Arora ([id number]) on 04/13/2023 10:10:55 AM Referred By: REFERRED SELF Confirmed By:Geoffrey Arora
--- NOTE | 2023-04-13 10:12 | Electrocardiogram Report ---
Test Reason : Blood Pressure : / mmHG Vent. Rate : 073 BPM Atrial Rate : 073 BPM P-R Int : 176 ms QRS Dur : 104 ms QT Int : 434 ms P-R-T Axes : 012 -03 081 degrees QTc Int : 478 ms Sinus rhythm with occasional Premature ventricular complexes Minimal voltage criteria for LVH, may be normal variant Inferior infarct (cited on or before 26-AUG-2022) Anteroseptal infarct (cited on or before 14-OCT-2018) Abnormal ECG When compared with ECG of 11-APR-2023 16:25, (unconfirmed) Previous ECG has undetermined rhythm, needs review RSR' pattern in V1 is no longer Present Questionable change in initial forces of Septal leads Confirmed by Leonel Arora ([id number]) on 04/13/2023 10:12:18 AM Referred By: REFERRED SELF Confirmed By:Geoffrey Arora
--- NOTE | 2023-04-13 10:56 | Hospitalist Progress Note ---
Date of Service April 13, 2023 Assessment & Plan (1) Nonsustained ventricular tachycardia: (2) ICD (implantable cardioverter-defibrillator), dual, in situ: Plan: Patient presented from home with reports of bilateral lower extremity weakness and near fall. Upon arrival to the ED, telemetry revealed intermittent episodes of nonsustained V. tach. Patient with history of V. tach s/p dual-chamber ICD, cardioversion, transient use of amiodarone. Amiodarone discontinued by patient in March 2019 secondary to corneal deposits and visual disturbances. In the ED, received metoprolol 5 mg without improvement. Case discussed with cardiology by ED provider who recommends IV amiodarone bolus and drip. Patient has been on amio drip since admission TTE noted mild to mod increased LV wall thickness in segments without wall motion abnormality. Focal basal septum thickening without evidence of LV outflow obstruction. Large sized apical, septal, anteroseptal and inferior wall motion abnormality with hypokinesis to dyskinesis of segments. Small sized inferior aneurysm, EF 45-50%, G II DD, mild AV sclerosis, mild MR (findings similar to TTE from 08/27/22) Trop on admission was normal Hot Man evaluation and recs noted Discussed with Dr Monsalve today. He reports that he will have EP evaluate patient He plans to switch to po amio today Continue metoprolol succinate K is 3.5 today. Po K ordered Monitor electrolytes (3) Chronic HFrEF (heart failure with reduced ejection fraction): (4) CAD (coronary artery disease): (5) Ischemic cardiomyopathy: Plan: Prior EF 25 to 30%, improved to 45 to 50% on echo 08/2022 Recent Echo as above Per review of outpatient records, patient was prescribed Lasix to be taken twice weekly by cardiology. However, per admitting provider patient states that the pharmacy never filled this prescription Continue ASA, Brilinta, statin, isosorbide, Jardiance, metoprolol succinate and lisinopril Concern for poor med adherence based on my conversation with patient (6) Leg weakness: (7) Neck pain: Plan: Patient reports ongoing neck pain with bilateral lower extremity weakness and falls/near falls over the past several weeks CT C-spine unremarkable Scheduled to see spine Ortho in May PT/OT eval (8) Diabetes type 2, uncontrolled: Plan: Hgb A1c 16.0 02/2023 HbA1c is 13 on 04/12/23 Lantus and NovoLog per protocol while hospitalized DM educator consult for more DM education She claims she follows with [facility] for Diabetes outpatient Concern for adherence issues Monitor blood glucose inpatient and insulin requirement (9) COPD (chronic obstructive pulmonary disease): Plan: No signs of acute exacerbation Continue home inhalers (10) History of CVA (cerebrovascular accident): Plan: Continue ASA, Brilinta, statin (11) HTN (hypertension): Plan: Continue lisinopril, metoprolol, isosorbide (12) Diabetic neuropathy: Plan: Continue gabapentin (13) Tobacco abuse: Plan: Smokes 1 ppd Patient counseled regarding tobacco cessation Continue nicotine patch (14) PTSD (post-traumatic stress disorder): (15) Anxiety: (16) Depression: Plan: Chronic, stable Continue home meds DVT PROPHYLAXIS SQ Lovenox I spent a total of 50 minutes coordinating, documenting and providing care for this patient excluding time spent in performance of separately billed services Admission and Anticipated Discharge Date Admission Date: April 11, 2023 Subjective Patient seen and examined Denies any complaints this morning Still has runs of VT on tele Denied any chest pain, palpitations, dizziness Denied cough, shortness of breath Denied fever, chills, nausea, vomiting, abd pain, diarrhea Denied dysuria, freq, urgency Later in the afternoon, RN reported she had some mins of "funny feeling in her chest". EKG at the time did note some NSVT Physical Exam Constitutional: + well hydrated; no acute distress Eyes: PERRL, conjunctivae normal, anicteric sclerae ENMT: external ear and nose normal, oropharynx normal Respiratory: normal respiratory effort, lungs clear to auscultation Cardiovascular: Rate/Rhythm: regular rate and regular rhythm S1 S2 Gastrointestinal (Abdomen): normal bowel sounds, soft, nontender, no hepatosplenomegaly Musculoskeletal: no cyanosis or clubbing, extremities motor strength 5/5 Neurologic: PERRL, EOMI, accommodation nl, no face palsy, no dysarthria Psychiatric: A+Ox3, euthymic affect Results & Data Results & Data Vital Signs (Past 12 Hours) Vital Signs Temp Pulse Pulse Resp BP Pulse Ox O2 Del Method 04/13/23 06:58 36.4 C L 61 19 144/78 H 94 Room Air 04/13/23 03:41 36.4 C L 62 18 122/76 95 Room Air 04/13/23 00:12 60 04/12/23 23:23 36.6 C 65 18 131/80 93 Room Air Laboratory Results Abnormal lab results 04/12/23 04/12/23 04/13/23 Range/Units 16:34 20:03 06:48 WBC 11.97 H (4.8-10.8) K/ul MCHC 31.6 L (32.0-36.0) g/dL RDW Std Deviation 49.0 H (36.4-46.3) fL RDW Coeff of Kathe 14.7 H (11.5-14.5) % MPV 8.7 L (9.4-12.4) fL BUN/Creatinine Ratio 26.6 H (10-20) POC Glucose 106 H 128 H (70-99) mg/dl 04/13/23 Range/Units 11:19 WBC (4.8-10.8) K/ul MCHC (32.0-36.0) g/dL RDW Std Deviation (36.4-46.3) fL RDW Coeff of Kathe (11.5-14.5) % MPV (9.4-12.4) fL BUN/Creatinine Ratio (10-20) POC Glucose 114 H (70-99) mg/dl (4) CAD (coronary artery disease) Coronary Disease-Associated Artery/Lesion type: [place] artery [place] vs. transplanted heart: pokagon heart Associated angina: with stable angina Qualified Code(s): I25.118 - Atherosclerotic heart disease of [place] coronary artery with other forms of angina pectoris (8) Diabetes type 2, uncontrolled Glycemic state: with hyperglycemia Qualified Code(s): E11.65 - Type 2 diabetes mellitus with hyperglycemia
--- NOTE | 2023-04-13 12:00 | Electrocardiogram Report ---
Test Reason : Blood Pressure : / mmHG Vent. Rate : 061 BPM Atrial Rate : 061 BPM P-R Int : 176 ms QRS Dur : 120 ms QT Int : 474 ms P-R-T Axes : 061 007 072 degrees QTc Int : 477 ms Normal sinus rhythm Inferior infarct (cited on or before 26-AUG-2022) possible Anteroseptal infarct (cited on or before 14-OCT-2018) Abnormal ECG When compared with ECG of 12-APR-2023 05:57, (unconfirmed) QT has shortened Confirmed by Leonel Arora ([id number]) on 04/13/2023 12:00:19 PM Referred By: REFERRED SELF Confirmed By:Geoffrey Arora
[2023-04-13] MEDS: AMIODARONE / D5W 360 MG/200 ML BAG IV SCH (12:39)
[2023-04-13] MEDS ORDERED: AMIODARONE 200 MG TAB PO ONE (13:00)
--- NOTE | 2023-04-13 13:06 | Cardiology Progress Note ---
Date of Service April 13, 2023 Assessment & Plan (1) Nonsustained ventricular tachycardia: (2) Near syncope: (3) Ischemic cardiomyopathy: (4) ICD (implantable cardioverter-defibrillator), dual, in situ: (5) Tobacco abuse: Plan 57-year-old female admitted with fall, possible near syncope. Unclear whether episodes of nonsustained ventricular tachycardia were related to admission symptoms. Possible symptoms this a.m. associated with runs of ventricular tachycardia. Case discussed with electrophysiology. Will perform device interrogation tomorrow with aid of [email or web address] overhead door technician. Suspect scar-mediated ventricular tachycardia. No evidence of acute ischemia/ACS. Discontinue IV amiodarone. Transition to oral amiodarone 400 mg twice daily. Continue Toprol-XL 75 mg daily. Monitor telemetry. Continue other cardiovascular medications including aspirin, Brilinta, rosuvastatin, isosorbide monohydrate, and lisinopril. Admission and Anticipated Discharge Date Admission Date: April 11, 2023 Subjective Patient seen examined the bedside. Aware of heart rate earlier this morning. 2-3-minute runs of nonsustained ventricular tachycardia with heart rate in the low 130s on telemetry. IV amiodarone infusing. Runs of ventricular tachycardia less frequent overnight. Denies chest pain or heaviness. No lightheadedness or dizziness. Review of Systems Review of Systems: All systems reviewed & are unremarkable except as noted in Subjective Physical Exam Constitutional: well nourished; no acute distress Respiratory: no respiratory distress, no labored breathing and no retractions Auscultation: no crackles, no rales, no rhonchi and no wheezes Cardiovascular: Rate/Rhythm: regular rate and regular rhythm Heart Sounds: normal S1, normal S2 and + murmur (1/6 systolic ejection murmur heard at the base.) Vessels: radial pulses present; no JVD Extremities: no edema Gastrointestinal (Abdomen): Inspection/Auscultation: normal bowel sounds; abdomen not distended Percussion/Palpation: abdomen soft; abdomen nontender, no guarding and abdomen not rigid Neurologic: CN's II-XI intact bilaterally and moves all extremities Results & Data Vital Signs (Past 12 Hours) Vital Signs Temp Pulse Pulse Resp BP Pulse Ox O2 Del Method 04/13/23 12:51 82 112/57 L 04/13/23 11:22 36.5 C 73 19 136/79 94 Room Air 04/13/23 08:00 66 04/13/23 06:58 36.4 C L 61 19 144/78 H 94 Room Air 04/13/23 03:41 36.4 C L 62 18 122/76 95 Room Air Laboratory Results CBC 04/13/23 Range/Units 06:48 WBC 11.97 H (4.8-10.8) K/ul RBC 4.91 (4.20-5.40) M/uL Hgb 14.1 (12.0-16.0) g/dl Hct 44.6 (37.0-47.0) % Plt Count 380 (130-400) K/uL Comprehensive Metabolic Panel 04/13/23 Range/Units 06:48 Sodium 141 (136-145) mmol/L Potassium 3.5 (3.5-5.1) mmol/L Chloride 105 (98-107) mmol/L Carbon Dioxide 27 (21-32) mmol/L BUN 17 (6-23) mg/dl Creatinine 0.64 (0.6-1.2) mg/dl Glucose 70 (70-99(Fasting)) mg/dl Calcium 9.2 (8.6-10.3) mg/dl Intake and Output 04/12/23 04/13/23 04/13/23 22:59 06:59 14:59 Intake Total 980 / 1373.998 200 / 1373.998 200 / 200 Balance 980 / 1373.998 200 / 1373.998 200 / 200 Intake: IV 200 / 393.998 200 / 200 Amiodarone / D5w 360 mg In 200 200 / 393.998 200 / 200 ml @ 0.5 MG/MIN 16.667 mls/hr IV .Q12H [facility] Rx#:[id number] Oral 980 / 980 Other: # Unmeasured Voids 1 1 Weight 73 kg Weight Measurement Method Built in [facility]
--- NOTE | 2023-04-13 14:46 | Electrocardiogram Report ---
Test Reason : Blood Pressure : / mmHG Vent. Rate : 076 BPM Atrial Rate : 076 BPM P-R Int : 172 ms QRS Dur : 110 ms QT Int : 444 ms P-R-T Axes : -13 007 087 degrees QTc Int : 499 ms Sinus rhythm with frequent , and consecutive Premature ventricular complexes (VT) Demand atrial pacing Inferior infarct (cited on or before 26-AUG-2022) Anteroseptal infarct (cited on or before 14-OCT-2018) Abnormal ECG When compared with ECG of 13-APR-2023 06:32, Premature ventricular complexes are now Present Confirmed by Leonel Arora ([id number]) on 04/13/2023 2:45:56 PM Referred By: REFERRED SELF Confirmed By:Geoffrey Arora
[2023-04-13] MEDS: AMIODARONE 200 MG TAB PO SCH (17:10)
[2023-04-13] MEDS: ENOXAPARIN INJ 40 MG/0.4 ML SYR SQ SCH (20:49)
[2023-04-13] MEDS: MIRTAZAPINE TAB 15 MG TAB PO SCH (20:49)
[2023-04-13] MEDS: LANTUS PER UNIT CHARGE SQ SCH (20:50)
[2023-04-14 09:09] LABS: Hematocrit (blood only) 45.7 % (37.0-47.0); Hemoglobin 14.4 g/dl (12.0-16.0); Mean Corpuscular Hemoglobin 28.8 pg (25.0-34.0); Mean Corpuscular Hgb Conc 31.5 g/dL (32.0-36.0); Mean Corpuscular Volume 91.4 fL (80.0-100.0); Mean Platelet Volume 8.7 fL (9.4-12.4); Platelet Count 402 K/uL (130-400); RDW Coefficient of Variation 14.8 % (11.5-14.5); RDW Standard Deviation 49.4 fL (36.4-46.3); White Blood Count 10.32 K/ul (4.8-10.8)
[2023-04-14 09:27] LABS: BUN Creatinine Ratio 26.6 (10-20); Calcium 9.3 mg/dl (8.6-10.3); Creatinine Clr Calc Pharmacy 91.7 ml/min; Est GFR (Non-African American) 98.4 ml/min; Phosphorus 4.3 mg/dl (2.5-4.9); Potassium 4.2 mmol/L (3.5-5.1)
[2023-04-14] MEDS: METOPROLOL SUCC 25MG EXT REL TAB PO SCH (09:28)
[2023-04-14] MEDS: FENOFIBRATE NANOCRYSTALLIZED 48 MG TABLET PO SCH (09:28)
[2023-04-14] MEDS: BACLOFEN 10 MG TAB PO SCH ×3 (09:28→20:13)
[2023-04-14] MEDS: EMPAGLIFLOZIN 25 MG TAB PO SCH (09:28)
[2023-04-14] MEDS: ASPIRIN 81 MG ECTAB PO SCH (09:28)
[2023-04-14] MEDS: ROSUVASTATIN CALCIUM 20 MG TAB PO SCH (09:28)
[2023-04-14] MEDS: AMIODARONE 200 MG TAB PO SCH ×2 (09:28→17:06)
[2023-04-14] MEDS: GABAPENTIN 600 MG TAB PO SCH ×2 (09:28→20:12)
[2023-04-14] MEDS: lisinopril 2.5 MG TAB PO SCH (09:28)
[2023-04-14] MEDS: CITALOPRAM 20 MG TAB PO SCH (09:28)
[2023-04-14] MEDS: ISOSORBIDE MONO EXTENDED REL 30 MG TABCR PO SCH (09:28)
[2023-04-14] MEDS: MONTELUKAST SODIUM 10 MG TABLET PO SCH (09:28)
[2023-04-14] MEDS: TICAGRELOR 90 MG TAB PO SCH ×2 (09:28→20:11)
[2023-04-14] MEDS: NICOTINE 21 MG/24 HR TDSY TD SCH (09:29)
[2023-04-14] MEDS: FLUTICASONE/VILANTEROL 100/25MCG 14 PUFFS/INHALER INH SCH (09:29)
[2023-04-14] MEDS: INSULIN ASPART PER UNIT CHARGE SC SCH ×4 (09:34→20:16)
--- NOTE | 2023-04-14 11:46 | Pharmacy Report ---
Pharmacy Glycemic Short Note 2 - Date of Service April 14, 2023 - Glycemic Short BSG Results (Last 24 hours): 04/13/23 04/13/23 04/14/23 16:16 20:04 07:01 Glucose POC Glucose 117 H 95 80 04/14/23 04/14/23 08:51 10:45 Glucose 209 H POC Glucose 215 H OUTPATIENT ANTIDIABETIC REGIMEN: * Lantus 60 units SC HS * Metformin 1000 mg PO BID * Jardiance 25 mg PO daily * HbA1c: 13.0% (04/12/23) ASSESSMENT: * Patient's BSGs yesterday 05-675-325-95 mg/dL. Patient received 55 units of insulin (36 units of basal and 19 units of bolus). * Fasting today is 80 mg/dl. * Continue basal regimen as this was reduced significantly yesterday. * Continue Novolog as BSGs stable. BACKGROUND * 57 yo F admitted on 04/11/23 secondary to ventricular tachycardia. Pharmacy has been consulted to assist with inpatient glycemic management. Patient is a Type 2 diabetic as an outpatient. Please refer to outpatient regimen and most recent HbA1c above. * Initial BSG in the ED was 188 mg/dL. Upon admit, BSG was 180 mg/dL. Given 40 units of basal last evening and starte don Novolog based on weight/stress of 3. * Fasting BSG was 177 mg/dL this AM. Will increase basal by ~20% this evening. Receiving 25 mg of Jardiance daily from home. Given trend down in lunchtime BSG will loosen carb ratio this evening. * Currently infusing amiodarone. No other stressors. Tolerating diet well. PLAN FOR INPATIENT GLYCEMIC CONTROL: * Hold outpatient Metformin * Receiving 25 mg PO Jardiance daily * Basal insulin * Lantus 36 units SC HS * Bolus insulin * NovoLog per scale ACHS or Q6hrs while NPO * Goal Range: Low 110 mg/dL - High 140 mg/dL * Correction Factor: 25 mg/dL/unit * Nutritional / Prandial insulin per carb ratio of 1 unit per 6 grams CHO consumed
--- NOTE | 2023-04-14 17:07 | Hospitalist Progress Note ---
Date of Service April 14, 2023 Assessment & Plan (1) Nonsustained ventricular tachycardia: (2) ICD (implantable cardioverter-defibrillator), dual, in situ: Plan: Patient presented from home with reports of bilateral lower extremity weakness and near fall. Upon arrival to the ED, telemetry revealed intermittent episodes of nonsustained V. tach. Patient with history of V. tach s/p dual-chamber ICD, cardioversion, transient use of amiodarone. Amiodarone discontinued by patient in March 2019 secondary to corneal deposits and visual disturbances. In the ED, received metoprolol 5 mg without improvement. Case discussed with cardiology by ED provider who recommends IV amiodarone bolus and drip. Patient was on amio drip at admission, transitioned to PO amiodarone 04/13. TTE noted mild to mod increased LV wall thickness in segments without wall motion abnormality. Focal basal septum thickening without evidence of LV outflow obstruction. Large sized apical, septal, anteroseptal and inferior wall motion abnormality with hypokinesis to dyskinesis of segments. Small sized inferior aneurysm, EF 45-50%, G II DD, mild AV sclerosis, mild MR (findings similar to TTE from 08/27/22) Trop on admission was normal Maintenance Mgr evaluation and recs noted Per prior attending - Discussed with Dr Monsalve today. He reports that he will have EP evaluate patient Continue metoprolol succinate Monitor and replete electrolytes. (3) Chronic HFrEF (heart failure with reduced ejection fraction): (4) CAD (coronary artery disease): (5) Ischemic cardiomyopathy: Plan: Prior EF 25 to 30%, improved to 45 to 50% on echo 08/2022 Recent Echo as above Per review of outpatient records, patient was prescribed Lasix to be taken twice weekly by cardiology. However, per admitting provider patient states that the pharmacy never filled this prescription Continue ASA, Brilinta, statin, isosorbide, Jardiance, metoprolol succinate and lisinopril Per prior attending - Concern for poor med adherence based on my conversation with patient (6) Leg weakness: (7) Neck pain: Plan: Patient reports ongoing neck pain with bilateral lower extremity weakness and falls/near falls over the past several weeks CT C-spine unremarkable Scheduled to see spine Ortho in May, pt advised to keep up with the appointment PT/OT eval (8) Diabetes type 2, uncontrolled: Plan: Hgb A1c 16.0 02/2023 HbA1c is 13 on 04/12/23 Lantus and NovoLog per protocol while hospitalized DM educator consult for more DM education She claims she follows with [facility] for Diabetes outpatient Concern for adherence issues Monitor blood glucose inpatient and insulin requirement (9) COPD (chronic obstructive pulmonary disease): Plan: No signs of acute exacerbation Continue home inhalers (10) History of CVA (cerebrovascular accident): Plan: Continue ASA, Brilinta, statin (11) HTN (hypertension): Plan: Continue lisinopril, metoprolol, isosorbide (12) Diabetic neuropathy: Plan: Continue gabapentin (13) Tobacco abuse: Plan: Smokes 1 ppd Patient counseled regarding tobacco cessation Continue nicotine patch (14) PTSD (post-traumatic stress disorder): (15) Anxiety: (16) Depression: Plan: Chronic, stable Continue home meds DVT PROPHYLAXIS SQ Lovenox Admission and Anticipated Discharge Date Admission Date: April 11, 2023 Subjective Patient seen and examined at bedside. Patient was sitting up in chair, on room air, resting comfortably, not in any acute distress. Denies any complaints this morning, denies any chest pain. Denied cough, shortness of breath Denied fever, chills, nausea, vomiting, abd pain, diarrhea Denied dysuria, freq, urgency Reports eating okay and moving bowels okay. Physical Exam Physical Exam: GENERAL: Alert and oriented x3. NAD, on RA. HEENT: No pallor, no icterus. Pupils equal, round and reactive to light. Oral mucosa moist. NECK: No JVD, no neck masses. HEART: S1 and S2 heard. Regular rate and rhythm. No murmur, no gallop. RESPIRATORY SYSTEM: Normal AP diameter. No accessory muscle use. No wheezing, no crackles. ABDOMEN: Soft, bowel sounds present, nontender, no distention. CENTRAL NERVOUS SYSTEM: No facial droop. Speech is clear. Obeys simple commands. Moves extremities. EXTREMITIES: No edema, no erythema seen. Results & Data Results & Data Vital Signs (Past 12 Hours) Vital Signs Temp Pulse Pulse Resp BP Pulse Ox O2 Del Method 04/14/23 15:57 61 04/14/23 15:20 36.9 C 63 18 133/73 94 Room Air 04/14/23 11:22 36.5 C 68 16 106/68 94 Room Air 04/14/23 08:11 60 04/14/23 07:43 36.8 C 60 18 154/79 H 94 Room Air (4) CAD (coronary artery disease) Coronary Disease-Associated Artery/Lesion type: [place] artery [place] vs. transplanted heart: [place] heart Associated angina: with stable angina Qualified Code(s): I25.118 - Atherosclerotic heart disease of [place] coronary artery with other forms of angina pectoris (8) Diabetes type 2, uncontrolled Glycemic state: with hyperglycemia Qualified Code(s): E11.65 - Type 2 diabetes mellitus with hyperglycemia
--- NOTE | 2023-04-14 17:20 | Cardiology Progress Note ---
Date of Service April 14, 2023 Assessment & Plan (1) Ischemic cardiomyopathy: (2) Nonsustained ventricular tachycardia: (3) ICD (implantable cardioverter-defibrillator), dual, in situ: Plan -Patient with history of ischemic cardiomyopathy. Initially presented with generalized weakness and without kelvin syncope but was observed to have runs of nonsustained ventricular tachycardia on telemetry and AICD interrogation. -The patient was seen in consultation by Dr. Dalal of EP today. The detection zone for the ventricular tachycardia was reduced to the 120s and her device was set to allow for 16 rounds of ATP for such a rhythm. Later today at 1459 the patient had a recurrent episode of nonsustained VT at 128 bpm which was successfully treated with antitachycardia pacing. Patient remained asymptomatic throughout the episode. Medical therapy: Continue Lovenox for DVT prophylaxis, Jardiance, lisinopril, metoprolol succinate 75 mg daily, aspirin, fenofibrate, Imdur 30 mg daily, rosuvastatin 40 mg daily, Brilinta 90 mg twice daily, amiodarone 400 mg twice daily. Admission and Anticipated Discharge Date Admission Date: April 11, 2023 Subjective Pt seen in follow up. Feels well. Review of Systems Review of Systems: All systems reviewed & are unremarkable except as noted in HPI & below Physical Exam Constitutional: WD/WN, vitals as above Respiratory: normal respiratory effort, lungs clear to auscultation Cardiovascular: RRR, no murmur, no edema Gastrointestinal (Abdomen): normal bowel sounds, soft, nontender, no hepatosplenomegaly Neurologic: PERRL, EOMI, accommodation nl, no face palsy, no dysarthria Results & Data Vital Signs (Past 12 Hours) Vital Signs Temp Pulse Pulse Resp BP Pulse Ox O2 Del Method 04/14/23 15:57 61 04/14/23 15:20 36.9 C 63 18 133/73 94 Room Air 04/14/23 11:22 36.5 C 68 16 106/68 94 Room Air 04/14/23 08:11 60 04/14/23 07:43 36.8 C 60 18 154/79 H 94 Room Air Diagnostic Findings Echocardiogram performed 04/12/2023: There is a large sized apical, septal, anteroseptal, and inferior wall motion abnormality with hypokinesis to dyskines is of the segments, there is a small sized inferior aneurysm, LVEF mildly reduced in the range of 45-50% Grade II diastolic dysfunction present Mild aortic valve sclerosis without stenosis Mild mitral regurgitation
--- NOTE | 2023-04-14 17:33 | Cardiology Consultation ---
Date of Consultation April 14, 2023 Assessment & Plan (1) Ventricular tachycardia: Pt is having scar mediated slow hemodynamically stable sustained VT that was falling below the monitor detection zone of the ICD as well as below the therapy zone of the programmed ICD Pt was started on amiodarone which I would continue I have personally interrogated and reprogrammed the device today so that the ICD will detect the VT and hopefully through many rounds of ATP be able to break the VT If pt continues to have VT as an outpatient will need to consider a VT ablation with myself and my partners [place] [facility] [place] I would continue PO amiodarone, metoprolol She will be seen in EP f/u (with my COKE LOADER as well as myself) on the office on 05/07/2022 Discussed my recommendations and plans with the general tassel making machine operator who expressed an understanding and agreed with my recommendations (2) Ischemic cardiomyopathy: (3) Near syncope: (4) ICD (implantable cardioverter-defibrillator), dual, in situ: (5) HTN (hypertension): (6) CAD (coronary artery disease): History of Present Illness Reason for Consultation: VT Requesting Physician: Dr. Lopez Attending Physician: Josh Patricia MD History of Present Illness Pt presented to [facility] due to a fall ?syncope on . She does report intermittent lightheadedness and dizziness with palpitations and just not feeling right-she was found to be in a slow VT hemodynamically stable. The rate of the VT was under her detection zones and monitor zones of her ICD so the device would not activate on it. The pt was started on amiodarone (she was on this in the past possibly stopped due to eye deposits?. She continues to have slow VT semi-sympotmatic but hemodynamically stable and EP was consulted. Allergies Allergy/AdvReac Type Severity Reaction Status Date / Time Bactrim Allergy Severe "SEVERE GI Verified 04/29/17 15:45 UPSET" mold Allergy Severe SNEEZING, Verified 02/18/23 01:37 WATERY EYES, MAY CAUSE SOB-DEPENDS ON MOLD sulfamethoxazole Allergy Severe "SEVERE GI Verified 02/18/23 01:37 UPSET" trimethoprim Allergy Severe "SEVERE GI Verified 02/18/23 01:37 UPSET" adhesive Allergy Intermediate REDNESS, Verified 02/18/23 01:37 ITCHY, BLISTERS Aminoglycosides Allergy Intermediate ITCHY RASH Verified 02/18/23 01:37 bacitracin Allergy Intermediate ITCHY RASH Verified 02/18/23 01:37 neomycin Allergy Intermediate ITCHY RASH Verified 02/18/23 01:37 polymyxin B Allergy Intermediate ITCHY RASH Verified 02/18/23 01:37 Home Medications Medication Instructions Recorded Confirmed Type aspirin 81 mg chewable tablet 81 mg PO DAILY ##0 11/10/14 04/11/23 History citalopram 20 mg tablet 20 mg PO DAILY ##0 09/23/17 04/11/23 History montelukast 10 mg tablet 10 mg PO QAM asthma ##0 09/23/17 04/11/23 History (Singulair) albuterol sulfate 90 mcg/actuation 2 puff inhalation Q6H PRN asthma 08/07/18 04/11/23 History aerosol inhaler (Ventolin HFA) fenofibrate nanocrystallized 48 mg 48 mg PO DAILY 08/07/18 04/11/23 History tablet (Tricor) mometasone-formoterol HFA 100 2 puff inhalation BID 08/07/18 04/11/23 History mcg-5 mcg/actuation aerosol inhaler nitroglycerin 0.4 mg sublingual 0.4 mg sublingual UD 10/11/18 04/11/23 History tablet insulin glargine 100 unit/mL (3 60 units subcut HS 12/18/18 04/11/23 History mL) subcutaneous pen (Lantus Solostar U-100 Insulin) lisinopril 2.5 mg tablet (Zestril) 2.5 mg PO DAILY 12/18/18 04/11/23 History empagliflozin 25 mg tablet 25 mg PO DAILY 05/17/20 04/11/23 History (Jardiance) mirtazapine 15 mg tablet 7.5 mg PO HS 05/17/20 04/11/23 History omega-3 fatty acids 1,000 mg PO DAILY 05/17/20 04/11/23 History polyethylene glycol 3350 17 gram 17 g PO DAILY PRN Constipation 05/17/20 04/11/23 History oral powder packet (Miralax) rosuvastatin 40 mg tablet 40 mg PO DAILY 05/17/20 04/11/23 History diclofenac sodium 1 % topical gel 0 g topical QID PRN Pain 08/26/22 04/11/23 History metformin 500 mg tablet,extended 1,000 mg PO BID 08/26/22 04/11/23 History release 24 hr ondansetron HCl 4 mg tablet 4 mg PO Q8 PRN Nausea 08/26/22 04/11/23 History ticagrelor 90 mg tablet (Brilinta) 90 mg PO AMHS 08/26/22 04/11/23 History vitamin B complex 1 tab PO DAILY 08/26/22 04/11/23 History blood sugar diagnostic (OneTouch #100 ea 08/28/22 04/11/23 Rx Ultra Test strips) blood-glucose meter (OneTouch #1 ea 08/28/22 04/11/23 Rx Ultra2 Meter) isosorbide mononitrate 30 mg 30 mg PO QAM #30 tabs 08/28/22 04/11/23 Rx tablet,extended release 24 hr lancets 33 gauge (OneTouch Delica #100 ea 08/28/22 04/11/23 Rx Plus Lancet) metoprolol succinate 50 mg 75 mg (1.5 x 50 mg) PO DAILY #60 08/28/22 04/11/23 Rx tablet,extended release 24 hr tabs baclofen 10 mg tablet 10 mg PO TID 04/11/23 04/11/23 History gabapentin 600 mg tablet 600 mg PO BID 04/11/23 04/11/23 History insulin aspart U-100 100 unit/mL 10 unit subcut TIDM 04/11/23 04/11/23 History (3 mL) subcutaneous pen Patient History Medical History History of CVA (cerebrovascular accident) COPD (chronic obstructive pulmonary disease) PTSD (post-traumatic stress disorder) Depression ICD (implantable cardioverter-defibrillator), dual, in situ Nonsustained ventricular tachycardia Chronic HFrEF (heart failure with reduced ejection fraction) Diabetic neuropathy Closed fracture of right distal radius Ischemic cardiomyopathy Anxiety HTN (hypertension) Diabetes type 2, uncontrolled CAD (coronary artery disease) 1.History of prior inferior ST segment elevation myocardial infarction, s tatus post PTCA and stenting of the RCA 2.Diagnostic cardiac catheterization last performed in September 2018 ([facility]) demonstrated severe multivessel coronary artery disease including the known chronic RCA occlusion, high-grade LAD disease into the D1/D2, status post PCI of LAD and angioplasty of the diagonal branch. Tobacco abuse Genital herpes Surgical History H/O: hysterectomy History of coronary artery stent placement H/O exploratory laparotomy S/P TAO-BSO Previous section Family History Other Cancer Diabetes Heart disease Hypertension Social History Smoking Status: Current every day smoker Tobacco Type: Cigarettes Cigarettes Per Day: 1 ppd; Second Hand Exposure: No; Do You Dip or Chew Tobacco: No; Hx Alcohol Use: No Hx Substance Use: No Preferred Language: Serbian Communication Ability: Effective Shiatsu Therapist Required: No Beliefs That Will Affect Care: None marital status: Current Living Situation: Alone current occupational status: unemployed Feels Safe at Home: Yes Safety Concerns: Feels Safe At This Time Assistive Devices: Walker and Wheelchair Assistive Devices Comment: Glasses at bedside, rolling walker at home Review of Systems Review of Systems: All systems reviewed & are unremarkable except as noted in HPI & below Physical Exam Physical Exam: aaox3, NAD NC/AT, EOMI Supple No JVD Nrl S1/S2, No murmur CTA b/l no w/r/r soft nt/nd no LE edema b/l skin intact no focal deficits left pectoral incision intact, no hematoma mild ecchymosis Results & Data Vital Signs (Past 12 Hours) Vital Signs Temp Pulse Pulse Resp BP Pulse Ox O2 Del Method 04/14/23 15:57 61 04/14/23 15:20 36.9 C 63 18 133/73 94 Room Air 04/14/23 11:22 36.5 C 68 16 106/68 94 Room Air 04/14/23 08:11 60 04/14/23 07:43 36.8 C 60 18 154/79 H 94 Room Air Laboratory Results Laboratory Results - last 24 hr 04/13/23 04/14/23 04/14/23 20:04 07:01 08:51 WBC 10.32 RBC 5.00 Hgb 14.4 Hct 45.7 MCV 91.4 MCH 28.8 MCHC 31.5 L RDW Std Deviation 49.4 H RDW Coeff of [place] 14.8 H Plt Count 402 H MPV 8.7 L Sodium 140 Potassium 4.2 Chloride 106 Carbon Dioxide 25 Anion Gap 9 BUN 17 Creatinine 0.64 Est Cr Clr Drug Dosing 91.7 Est GFR ( Amer) 114.0 Est GFR (Non-Af Amer) 98.4 BUN/Creatinine Ratio 26.6 H Glucose 209 H POC Glucose 95 80 Calcium 9.3 Phosphorus 4.3 Magnesium 2.0 04/14/23 04/14/23 04/14/23 10:45 16:10 16:29 WBC RBC Hgb Hct MCV MCH MCHC RDW Std Deviation RDW Coeff of [place] Plt Count MPV Sodium Potassium Chloride Carbon Dioxide Anion Gap BUN Creatinine Est Cr Clr Drug Dosing Est GFR ( Amer) Est GFR (Non-Af Amer) BUN/Creatinine Ratio Glucose POC Glucose 215 H 63 L* 100 H Calcium Phosphorus Magnesium ECG Additional Comments: ECGS: ON admission VT at a rate of 135bpm Telemetry review SR in the 60-70bpm with occasonal AP and then episodes of slow monomorphic VT at a rate of 125bpm Dual chamber ICD interrogation today performed and interpreted by myself: Presenting rhythm and underlying rhythm: -VS 70bpm Stable battery life Stable auto lead testing Arrhythmia lo/26 some VT at a rate of 140bpm right at the monitor zone setting Programming changes today: Changed the VT detection interval from 400mg (150bpm) to 500mg (120bpm) with the first 3 zones of therapy being ATP: zone one is burst for 8 sequences, zone 2 is burst for 5 sequences and zone 3 is a ramp for 3 sequences; then zone 4 is a low voltage shock at 5J The VT monitor zone is change from 430ms (140bpm) to 540ms (111bpm) The upper tracking and sensor rates were change from 130bpm to 110bpm The SVT 1:1 discriminators were turned on (6) CAD (coronary artery disease) Coronary Disease-Associated Artery/Lesion type: [place] artery [place] vs. transplanted heart: [place] heart Associated angina: with stable angina Qualified Code(s): I25.118 - Atherosclerotic heart disease of [place] coronary artery with other forms of angina pectoris
[2023-04-14] MEDS: ENOXAPARIN INJ 40 MG/0.4 ML SYR SQ SCH (20:11)
[2023-04-14] MEDS: MIRTAZAPINE TAB 15 MG TAB PO SCH (20:12)
[2023-04-14] MEDS: LANTUS PER UNIT CHARGE SQ SCH (20:23)
[2023-04-15 07:16] LABS: BUN Creatinine Ratio 28.1 (10-20); Calcium 9.6 mg/dl (8.6-10.3); Est GFR (Non-African American) 98.4 ml/min; Phosphorus 4.5 mg/dl (2.5-4.9); Potassium 4.2 mmol/L (3.5-5.1)
[2023-04-15] MEDS: ASPIRIN 81 MG ECTAB PO SCH (08:35)
[2023-04-15] MEDS: BACLOFEN 10 MG TAB PO SCH ×3 (08:35→20:54)
[2023-04-15] MEDS: CITALOPRAM 20 MG TAB PO SCH (08:35)
[2023-04-15] MEDS: AMIODARONE 200 MG TAB PO SCH ×2 (08:35→17:04)
[2023-04-15] MEDS: GABAPENTIN 600 MG TAB PO SCH ×2 (08:36→20:53)
[2023-04-15] MEDS: MONTELUKAST SODIUM 10 MG TABLET PO SCH (08:36)
[2023-04-15] MEDS: TICAGRELOR 90 MG TAB PO SCH ×2 (08:36→20:53)
[2023-04-15] MEDS: lisinopril 2.5 MG TAB PO SCH (08:36)
[2023-04-15] MEDS: FLUTICASONE/VILANTEROL 100/25MCG 14 PUFFS/INHALER INH SCH (08:36)
[2023-04-15] MEDS: ISOSORBIDE MONO EXTENDED REL 30 MG TABCR PO SCH (08:36)
[2023-04-15] MEDS: FENOFIBRATE NANOCRYSTALLIZED 48 MG TABLET PO SCH (08:36)
[2023-04-15] MEDS: EMPAGLIFLOZIN 25 MG TAB PO SCH (08:36)
[2023-04-15] MEDS: METOPROLOL SUCC 25MG EXT REL TAB PO SCH (08:36)
[2023-04-15] MEDS: NICOTINE 21 MG/24 HR TDSY TD SCH (08:36)
[2023-04-15] MEDS: ROSUVASTATIN CALCIUM 20 MG TAB PO SCH (08:36)
[2023-04-15] MEDS: INSULIN ASPART PER UNIT CHARGE SC SCH ×4 (08:41→20:10)
--- NOTE | 2023-04-15 15:39 | Cardiology Progress Note ---
Date of Service April 15, 2023 Assessment & Plan (1) Nonsustained ventricular tachycardia: (2) Near syncope: (3) Ischemic cardiomyopathy: (4) ICD (implantable cardioverter-defibrillator), dual, in situ: (5) Tobacco abuse: Plan 57-year-old female admitted with fall, possible near syncope, and sustained ventricular tachycardia. Appreciate electrophysiology recommendations. Continue amiodarone 400 mg twice daily with transition to 200 mg twice daily at discharge. Continue Toprol-XL 75 mg daily. Monitor telemetry. Continue other cardiovascular medications including aspirin, Brilinta, rosuvastatin, isosorbide monohydrate, and lisinopril. Admission and Anticipated Discharge Date Admission Date: April 11, 2023 Subjective Patient seen examined the bedside. No recurrent ventricular tachycardia over the past 24 hours. ICD programming changes made per solar power installer yesterday. Patient feeling well today. Offers no concerns/complaints. Review of Systems Review of Systems: All systems reviewed & are unremarkable except as noted in Subjective Physical Exam Constitutional: well nourished; no acute distress Respiratory: no respiratory distress, no labored breathing and no retractions Auscultation: no crackles, no rales, no rhonchi and no wheezes Cardiovascular: Rate/Rhythm: regular rate and regular rhythm Heart Sounds: normal S1, normal S2 and + murmur (1/6 systolic ejection murmur heard at the base.) Vessels: radial pulses present; no JVD Extremities: no edema Gastrointestinal (Abdomen): Inspection/Auscultation: normal bowel sounds; abdomen not distended Percussion/Palpation: abdomen soft; abdomen nontender, no guarding and abdomen not rigid Neurologic: CN's II-XI intact bilaterally and moves all extremities Results & Data Vital Signs (Past 12 Hours) Vital Signs Temp Pulse Pulse Resp BP Pulse Ox O2 Del Method 04/15/23 15:15 36.6 C 62 18 144/73 H 94 Room Air 04/15/23 11:15 36.4 C L 60 16 81/50 L 95 Room Air 04/15/23 11:03 60 16 102/64 94 Room Air 04/15/23 07:29 62 04/15/23 07:26 36.8 C 56 L 18 141/76 H 96 Room Air 04/15/23 04:00 36.4 C L 61 18 154/90 H 93 Room Air Laboratory Results Comprehensive Metabolic Panel 12/28/23 Range/Units 06:41 Sodium 140 (136-145) mmol/L Potassium 4.2 (3.5-5.1) mmol/L Chloride 106 (98-107) mmol/L Carbon Dioxide 27 (21-32) mmol/L BUN 18 (6-23) mg/dl Creatinine 0.64 (0.6-1.2) mg/dl Glucose 78 (70-99(Fasting)) mg/dl Calcium 9.6 (8.6-10.3) mg/dl Intake and Output 04/15/23 04/15/23 04/15/23 06:59 14:59 22:59 Intake Total 240 / 240 Balance 240 / 240 Intake: Tube Feeding 240 / 240 Other: # Unmeasured Voids 2 1 Weight 73.482 kg Weight Measurement Method Built in [facility]
--- NOTE | 2023-04-15 17:16 | Hospitalist Progress Note ---
Date of Service April 15, 2023 Assessment & Plan (1) Nonsustained ventricular tachycardia: (2) ICD (implantable cardioverter-defibrillator), dual, in situ: Plan: Patient presented from home with reports of bilateral lower extremity weakness and near fall. Upon arrival to the ED, telemetry revealed intermittent episodes of nonsustained V. tach. Patient with history of V. tach s/p dual-chamber ICD, cardioversion, transient use of amiodarone. Amiodarone discontinued by patient in March 2019 secondary to corneal deposits and visual disturbances. In the ED, received metoprolol 5 mg without improvement. Case discussed with cardiology by ED provider who recommended IV amiodarone bolus and drip. Patient was on amio drip at admission, transitioned to PO amiodarone 04/13. TTE noted mild to mod increased LV wall thickness in segments without wall motion abnormality. Focal basal septum thickening without evidence of LV outflow obstruction. Large sized apical, septal, anteroseptal and inferior wall motion abnormality with hypokinesis to dyskinesis of segments. Small sized inferior aneurysm, EF 45-50%, G II DD, mild AV sclerosis, mild MR (findings similar to TTE from 08/27/22) Trop on admission was normal [employer] evaluation and recs noted - amiodarone 200 Mg twice daily at discharge.. EP evaled, interrogated and reprogrammed the device so that the ICD will detect VT. Patient to follow-up with EP on 05/07/2022 Continue metoprolol succinate Monitor and replete electrolytes. Orthostatic vitals positive: Compression stockings. Slow transition during change in position. (3) Chronic HFrEF (heart failure with reduced ejection fraction): (4) CAD (coronary artery disease): (5) Ischemic cardiomyopathy: Plan: Prior EF 25 to 30%, improved to 45 to 50% on echo 08/2022 Recent Echo as above Per review of outpatient records, patient was prescribed Lasix to be taken twice weekly by cardiology. However, per admitting provider patient states that the pharmacy never filled this prescription Continue ASA, Brilinta, statin, isosorbide, Jardiance, metoprolol succinate and lisinopril Per prior attending - Concern for poor med adherence based on my conversation with patient (6) Leg weakness: (7) Neck pain: Plan: Patient reports ongoing neck pain with bilateral lower extremity weakness and falls/near falls over the past several weeks CT C-spine unremarkable Scheduled to see spine Ortho in May, pt advised to keep up with the appointment PT/OT martha (8) Diabetes type 2, uncontrolled: Plan: Hgb A1c 16.0 02/2023 HbA1c is 13 on 04/12/23 Lantus and NovoLog per protocol while hospitalized DM educator consult for more DM education She claims she follows with [facility] for Diabetes outpatient Concern for adherence issues Monitor blood glucose inpatient and insulin requirement (9) COPD (chronic obstructive pulmonary disease): Plan: No signs of acute exacerbation Continue home inhalers (10) History of CVA (cerebrovascular accident): Plan: Continue ASA, Brilinta, statin (11) HTN (hypertension): Plan: Continue lisinopril, metoprolol, isosorbide (12) Diabetic neuropathy: Plan: Continue gabapentin (13) Tobacco abuse: Plan: Smokes 1 ppd Patient counseled regarding tobacco cessation Continue nicotine patch (14) PTSD (post-traumatic stress disorder): (15) Anxiety: (16) Depression: Plan: Chronic, stable Continue home meds DVT PROPHYLAXIS SQ Lovenox Admission and Anticipated Discharge Date Admission Date: April 11, 2023 Subjective Patient seen and examined at bedside. Patient was lying in bed, on room air, resting comfortably, not in any acute distress. Denies any complaints this morning, denies any chest pain. Reports having transient dizziness in the morning, has orthostatic vitals positive, compression stockings and slow transition during change in position. Denied cough, shortness of breath Denied fever, chills, nausea, vomiting, abd pain, diarrhea Denied dysuria, freq, urgency Reports eating okay and moving bowels okay. Physical Exam Physical Exam: GENERAL: Alert and oriented x3. NAD, on RA. HEENT: No pallor, no icterus. Pupils equal, round and reactive to light. Oral mucosa moist. NECK: No JVD, no neck masses. HEART: S1 and S2 heard. Regular rate and rhythm. No murmur, no gallop. RESPIRATORY SYSTEM: Normal AP diameter. No accessory muscle use. No wheezing, no crackles. ABDOMEN: Soft, bowel sounds present, nontender, no distention. CENTRAL NERVOUS SYSTEM: No facial droop. Speech is clear. Obeys simple commands. Moves extremities. EXTREMITIES: No edema, no erythema seen. Results & Data Results & Data Vital Signs (Past 12 Hours) Vital Signs Temp Pulse Pulse Resp BP Pulse Ox O2 Del Method 04/15/23 16:16 60 04/15/23 15:15 36.6 C 62 18 144/73 H 94 Room Air 04/15/23 11:15 36.4 C L 60 16 81/50 L 95 Room Air 04/15/23 11:03 60 16 102/64 94 Room Air 04/15/23 07:29 62 04/15/23 07:26 36.8 C 56 L 18 141/76 H 96 Room Air (4) CAD (coronary artery disease) Coronary Disease-Associated Artery/Lesion type: [place] artery [place] vs. transplanted heart: [place] heart Associated angina: with stable angina Qualified Code(s): I25.118 - Atherosclerotic heart disease of [place] coronary artery with other forms of angina pectoris (8) Diabetes type 2, uncontrolled Glycemic state: with hyperglycemia Qualified Code(s): E11.65 - Type 2 diabetes mellitus with hyperglycemia
[2023-04-15] MEDS: MIRTAZAPINE TAB 15 MG TAB PO SCH (20:53)
[2023-04-15] MEDS: ENOXAPARIN INJ 40 MG/0.4 ML SYR SQ SCH (20:53)
[2023-04-15] MEDS ORDERED: LANTUS PER UNIT CHARGE SQ SCH (21:00)
[2023-04-16 07:03] LABS: BUN Creatinine Ratio 27.9 (10-20); Calcium 9.4 mg/dl (8.6-10.3); Creatinine Clr Calc Pharmacy 86.4 ml/min; Est GFR (African American) 111.8 ml/min; Est GFR (Non-African American) 96.4 ml/min; Potassium 3.8 mmol/L (3.5-5.1)
[2023-04-16] MEDS ORDERED: POTASSIUM CHLORIDE CRTAB 20 MEQ TABCR PO STA (08:08)
[2023-04-16] MEDS: ROSUVASTATIN CALCIUM 20 MG TAB PO SCH (08:24)
[2023-04-16] MEDS: TICAGRELOR 90 MG TAB PO SCH (08:24)
[2023-04-16] MEDS: MONTELUKAST SODIUM 10 MG TABLET PO SCH (08:25)
[2023-04-16] MEDS: lisinopril 2.5 MG TAB PO SCH (08:25)
[2023-04-16] MEDS: CITALOPRAM 20 MG TAB PO SCH (08:26)
[2023-04-16] MEDS: ISOSORBIDE MONO EXTENDED REL 30 MG TABCR PO SCH (08:26)
[2023-04-16] MEDS: AMIODARONE 200 MG TAB PO SCH (08:26)
[2023-04-16] MEDS: ASPIRIN 81 MG ECTAB PO SCH (08:26)
[2023-04-16] MEDS: METOPROLOL SUCC 25MG EXT REL TAB PO SCH (08:27)
[2023-04-16] MEDS: BACLOFEN 10 MG TAB PO SCH ×2 (08:27→14:04)
[2023-04-16] MEDS: EMPAGLIFLOZIN 25 MG TAB PO SCH (08:27)
[2023-04-16] MEDS: FLUTICASONE/VILANTEROL 100/25MCG 14 PUFFS/INHALER INH SCH (08:29)
[2023-04-16] MEDS: GABAPENTIN 600 MG TAB PO SCH (08:59)
[2023-04-16] MEDS: INSULIN ASPART PER UNIT CHARGE SC SCH ×2 (08:59→12:36)
[2023-04-16] MEDS: NICOTINE 21 MG/24 HR TDSY TD SCH (09:01)
[2023-04-16] MEDS: FENOFIBRATE NANOCRYSTALLIZED 48 MG TABLET PO SCH (09:02)
--- NOTE | 2023-04-16 13:39 | Cardiology Progress Note ---
Date of Service April 16, 2023 Assessment & Plan (1) Nonsustained ventricular tachycardia: (2) Near syncope: (3) Ischemic cardiomyopathy: (4) ICD (implantable cardioverter-defibrillator), dual, in situ: (5) Tobacco abuse: (6) Prolonged QT interval: Plan 57-year-old female admitted with fall, possible near syncope, and sustained ventricular tachycardia. ECG today demonstrating prolonged QT interval in the setting of interventricular conduction delay. Discontinue Celexa. Reduce amiodarone to 200 mg daily. Continue Toprol-XL 75 mg daily. Monitor telemetry. Continue other cardiovascular medications including aspirin, Brilinta, rosuvastatin, isosorbide monohydrate, and lisinopril. Outpatient cardiology follow-up in 1 week with repeat ECG. Admission and Anticipated Discharge Date Admission Date: April 11, 2023 Physical Exam Constitutional: well nourished; no acute distress Respiratory: no respiratory distress, no labored breathing and no retractions Auscultation: no crackles, no rales, no rhonchi and no wheezes Cardiovascular: Rate/Rhythm: regular rate and regular rhythm Heart Sounds: normal S1, normal S2 and + murmur (1/6 systolic ejection murmur heard at the base.) Vessels: radial pulses present; no JVD Extremities: no edema Gastrointestinal (Abdomen): Inspection/Auscultation: normal bowel sounds; abdomen not distended Percussion/Palpation: abdomen soft; abdomen nontender, no guarding and abdomen not rigid Neurologic: CN's II-XI intact bilaterally and moves all extremities Results & Data Vital Signs (Past 12 Hours) Vital Signs Temp Pulse Pulse Resp BP Pulse Ox O2 Del Method 04/16/23 12:58 60 04/16/23 10:24 36.5 C 66 17 94/63 L 94 Room Air 04/16/23 08:22 61 18 136/80 92 Room Air 04/16/23 07:28 36.4 C L 63 16 120/75 96 Room Air 04/16/23 02:37 36.5 C 61 18 133/76 93 Room Air Laboratory Results Comprehensive Metabolic Panel 04/16/23 Range/Units 06:06 Sodium 140 (136-145) mmol/L Potassium 3.8 (3.5-5.1) mmol/L Chloride 107 (98-107) mmol/L Carbon Dioxide 25 (21-32) mmol/L BUN 19 (6-23) mg/dl Creatinine 0.68 (0.6-1.2) mg/dl Glucose 78 (70-99(Fasting)) mg/dl Calcium 9.4 (8.6-10.3) mg/dl Intake and Output 04/15/23 04/16/23 04/16/23 22:59 06:59 14:59 Intake Total 350 / 590 240 / 240 Balance 350 / 590 240 / 240 Intake: Oral 350 / 350 240 / 240 Other: # Unmeasured Voids 1 Weight 73.2 kg
--- NOTE | 2023-04-16 13:49 | Electrocardiogram Report ---
Test Reason : Blood Pressure : / mmHG Vent. Rate : 060 BPM Atrial Rate : 060 BPM P-R Int : 206 ms QRS Dur : 112 ms QT Int : 518 ms P-R-T Axes : 033 029 012 degrees QTc Int : 518 ms Atrial-paced rhythm Possible Inferior infarct (cited on or before 26-AUG-2022) Prolonged QT Abnormal ECG When compared with ECG of 13-APR-2023 12:48, Electronic atrial pacemaker has replaced Sinus rhythm Confirmed by Leonel Arora [id number] on 04/16/2023 1:48:34 PM Referred By: REFERRED SELF Confirmed By:Geoffrey Arora
--- NOTE | 2023-04-16 13:51 | Pharmacy Report ---
Pharmacy Glycemic Short Note 2 - Date of Service April 16, 2023 - Glycemic Short BSG Results (Last 24 hours): 04/15/23 04/15/23 04/16/23 16:01 20:06 06:06 Glucose 78 POC Glucose 85 97 04/16/23 04/16/23 07:10 11:19 Glucose POC Glucose 79 134 H OUTPATIENT ANTIDIABETIC REGIMEN: * Lantus 60 units SC HS * Metformin 1000 mg PO BID * Jardiance 25 mg PO daily * HbA1c: 13.0% (04/12/23) ASSESSMENT: 04/16/23 * BSGs yesterday were 21-331-15-97 mg/dL. Patient received 46 units of insulin (30 units of basal and 16 units of bolus). * Fasting today is 79 mg/dL. * Decrease Lantus by half since fasting remains below goal for several days. * Loosen Novolog slightly. 04/14/23 * Patient's BSGs yesterday 92-261-821-95 mg/dL. Patient received 55 units of insulin (36 units of basal and 19 units of bolus). * Fasting today is 80 mg/dl. * Continue basal regimen as this was reduced significantly yesterday. * Continue Novolog as BSGs stable. BACKGROUND * 57 yo F admitted on 04/11/23 secondary to ventricular tachycardia. Pharmacy has been consulted to assist with inpatient glycemic management. Patient is a Type 2 diabetic as an outpatient. Please refer to outpatient regimen and most recent HbA1c above. * Initial BSG in the ED was 188 mg/dL. Upon admit, BSG was 180 mg/dL. Given 40 units of basal last evening and starte don Novolog based on weight/stress of 3. * Fasting BSG was 177 mg/dL this AM. Will increase basal by ~20% this evening. Receiving 25 mg of Jardiance daily from home. Given trend down in lunchtime BSG will loosen carb ratio this evening. * Currently infusing amiodarone. No other stressors. Tolerating diet well. PLAN FOR INPATIENT GLYCEMIC CONTROL: * Hold outpatient Metformin * Receiving 25 mg PO Jardiance daily * Basal insulin * Lantus 15 units SC HS * Bolus insulin * NovoLog per scale ACHS or Q6hrs while NPO * Goal Range: Low 110 mg/dL - High 140 mg/dL * Correction Factor: 35 mg/dL/unit * Nutritional / Prandial insulin per carb ratio of 1 unit per 8 grams CHO consumed
--- NOTE | 2023-04-16 14:01 | Discharge Summary ---
Date of Service April 16, 2023 Admission HPI Per Admitting Provider 57-year-old female with PMH IDDM, diabetic neuropathy, tobacco abuse, COPD, ischemic cardiomyopathy, chronic HFrEF, CAD, HTN, history of nonsustained V. tach s/p dual-chamber ICD placement, anxiety, PTSD, depression, history of CVA, and other problems listed below who presents to the ED for evaluation of bilateral leg weakness and near fall. History is obtained from the patient and review of outpatient PCP and cardiology records. Patient reports that she was going outside to have a cigarette and when she went to open the door, her legs felt weak like they were going to give out from under her. She reports that someone was able to help her back inside however she felt very off balance. Patient did sustain a fall about 1 week ago at her daughter's place due to similar complaints. Patient denies associated lightheadedness, dizziness, diaphoresis. No chest pain or palpitations. Reports ongoing issues with neck pain over the past several weeks. Is scheduled to see spine Ortho in May. Patient denies any other recent illnesses, fevers, chills. No abdominal pain, nausea, vomiting, diarrhea. Denies urinary symptoms. In the ED, patient was found to be converted between a narrow complex and wide-complex tachycardia. Patient was given metoprolol 5 mg without much improvement in heart rate. Cardiology was contacted by ED provider who recommends amiodarone bolus and drip for treatment of nonsustained V. tach. Admission Exam Per Admitting Provider Physical exam: Constitutional: AO4, conversational but easily distracted, seems minimize medical history/presenation/ongoing events HEENT: NCAT, MMM, oropharynx clear, dentition intact CV: converted to NSR during exam, initially rates in 140s, but upon auscultation converted to rates of 70s with regular sounds rhythm and no apparent murmur/gallop RESP: good airway movement, but bilateral coarse crackles on exam MSK: sensation, proprioception, and strength intact in BLE. 2+ edema of BLE up to mid calf, tense/tender. GI: soft NTND Neuro: No focal neurodeficits apparent on exam, 5/5 strength BUE/LE. Cranial nerves in tact Principal Diagnosis Nonsustained V. tach ICD, dual, in situ Leg weakness Neck pain Discharge Exam GENERAL: Alert and oriented x3. NAD, on RA. HEENT: No pallor, no icterus. Pupils equal, round and reactive to light. Oral mucosa moist. NECK: No JVD, no neck masses. HEART: S1 and S2 heard. Regular rate and rhythm. No murmur, no gallop. RESPIRATORY SYSTEM: Normal AP diameter. No accessory muscle use. No wheezing, no crackles. ABDOMEN: Soft, bowel sounds present, nontender, no distention. CENTRAL NERVOUS SYSTEM: No facial droop. Speech is clear. Obeys simple commands. Moves extremities. EXTREMITIES: No edema, no erythema seen. Discharge Data Allergies Allergy/AdvReac Type Severity Reaction Status Date / Time Bactrim Allergy Severe "SEVERE GI Verified 04/29/17 15:45 UPSET" mold Allergy Severe SNEEZING, Verified 02/18/23 01:37 WATERY EYES, MAY CAUSE SOB-DEPENDS ON MOLD sulfamethoxazole Allergy Severe "SEVERE GI Verified 02/18/23 01:37 UPSET" trimethoprim Allergy Severe "SEVERE GI Verified 02/18/23 01:37 UPSET" adhesive Allergy Intermediate REDNESS, Verified 02/18/23 01:37 ITCHY, BLISTERS Aminoglycosides Allergy Intermediate ITCHY RASH Verified 02/18/23 01:37 bacitracin Allergy Intermediate ITCHY RASH Verified 02/18/23 01:37 neomycin Allergy Intermediate ITCHY RASH Verified 02/18/23 01:37 polymyxin B Allergy Intermediate ITCHY RASH Verified 02/18/23 01:37 Consultations 04/11/23 17:43 ED Decision to Admit Stat 04/11/23 17:44 Consult Cardiology Stat 04/14/23 17:15 Consult Cardiac Electrophysiology Routine Ordered Studies 04/11/23 14:59 CT cervical spine wo con Stat 04/11/23 15:00 CT head/brain wo con Stat Diabetes Follow up Diabetes Follow-up Needed for HgbA1c >9% Hospital Course (1) Nonsustained ventricular tachycardia: (2) ICD (implantable cardioverter-defibrillator), dual, in situ: Patient presented from home with reports of bilateral lower extremity weakness and near fall. Upon arrival to the ED, telemetry revealed intermittent episodes of nonsustained V. tach. Patient with history of V. tach s/p dual-chamber ICD, cardioversion, transient use of amiodarone. Amiodarone discontinued by patient in March 2019 secondary to corneal deposits and visual disturbances. In the ED, received metoprolol 5 mg without improvement. Case discussed with cardiology by ED provider who recommended IV amiodarone bolus and drip. Patient was on amio drip at admission, transitioned to PO amiodarone 04/13. TTE noted mild to mod increased LV wall thickness in segments without wall motion abnormality. Focal basal septum thickening without evidence of LV outflow obstruction. Large sized apical, septal, anteroseptal and inferior wall motion abnormality with hypokinesis to dyskinesis of segments. Small sized inferior aneurysm, EF 45-50%, G II DD, mild AV sclerosis, mild MR (findings similar to TTE from 08/27/22) Trop on admission was normal Machine Maintenance Repairer evaluation and recs noted - amiodarone 200 Mg daily at discharge. Celexa dc'd d/t prolonged qtc EP evaled, interrogated and reprogrammed the device so that the ICD will detect VT. Patient to follow-up with EP on 05/07/2022 Continue metoprolol succinate Patient to follow-up with PCP/cardiology/EP physician on discharge. Orthostatic vitals positive: Compression stockings. Slow transition during change in position. Patient has been made aware. (3) Chronic HFrEF (heart failure with reduced ejection fraction): (4) CAD (coronary artery disease): (5) Ischemic cardiomyopathy: Prior EF 25 to 30%, improved to 45 to 50% on echo 08/2022 Recent Echo as above Per review of outpatient records, patient was prescribed Lasix to be taken twice weekly by cardiology. However, per admitting provider patient states that the pharmacy never filled this prescription Continue ASA, Brilinta, statin, isosorbide, Jardiance, metoprolol succinate and lisinopril Per prior attending - Concern for poor med adherence based on my conversation with patient (6) Leg weakness: (7) Neck pain: Patient reports ongoing neck pain with bilateral lower extremity weakness and falls/near falls over the past several weeks CT C-spine unremarkable Scheduled to see spine Ortho in May, pt advised to keep up with the appointment PT/OT eval (8) Diabetes type 2, uncontrolled: Hgb A1c 16.0 02/2023 HbA1c is 13 on 04/12/23 Lantus and NovoLog per protocol while hospitalized DM educator consult for more DM education She claims she follows with [facility] for Diabetes outpatient Concern for adherence issues Monitor blood glucose inpatient and insulin requirement (9) COPD (chronic obstructive pulmonary disease): No signs of acute exacerbation Continue home inhalers (10) History of CVA (cerebrovascular accident): Continue ASA, Brilinta, statin (11) HTN (hypertension): Continue lisinopril, metoprolol, isosorbide (12) Diabetic neuropathy: Continue gabapentin (13) Tobacco abuse: Smokes 1 ppd Patient counseled regarding tobacco cessation Continue nicotine patch (14) PTSD (post-traumatic stress disorder): (15) Anxiety: (16) Depression: Chronic, stable Continue home meds DVT PROPHYLAXIS SQ Lovenox Plan Patient being discharged to home with outpatient PT/OT eval with following instruction at the point of discharge: Follow-up with your primary care physician within a week time and likely you will need labs CBC/CMP/magnesium/phosphorus/EKG. Cardiology evaluated you while in hospital and also EP physician evaluated you. You are being discharged on amiodarone 200 mg once daily, you will need to follow-up with cardiology in 1 week time upon discharge and EP physician on 05/07/2022. Because your EKG was abnormal ("prolonged QTc), your Celexa has been discontinued. You will need to follow-up with cardiology in 1 week time upon discharge. Keep your orthospine appointment in May. Continue with physical therapy as an outpatient. Continue to follow-up with your diabetic clinic for ongoing management of your diabetes. Wear compression stockings to help with orthostatic hypotension. Also as discussed at the bedside, recommend slow transition during changes in position. Take your medications as prescribed. Please make sure that you are able to get your medications today by calling your pharmacy before you leave the hospital so that your treatment continuity is not broken. Home Health Attestation I certify that this patient is under my care and that I, or a physicians diversional therapist's assistant working with me, had a face to-face encounter that meets the home health [id number] encounter requirements with this patient. The encounter with the patient was in whole, or in part, for the following medical condition, which is the primary reason for home health care (list medical condition): v tach I certify that, based on my findings, the following services are medically necessary home health services: My clinical findings support the need for the above services because: OT Assess ADL Status and Restore Function w ADLs PT Assessment for Endurance / Balance / Strength PT Eval for Safety and Mobility PT Eval for Safety, Gait Training, Assistive Devices PT Gait and Balance Training, Strengthening and Safety Further, I certify that my clinical findings support that this patient is homebound (i.e. absences from home require considerable and taxing effort and are for medical reasons or sabianist services or infrequently or of short duration when for other reasons) because: Supportive Aid - Walker Certification for Home Health Services: Based on the above findings, I certify that this patient is confined to the home and needs intermittent fci care, physical therapy and/or speech therapy or continues to need occupational therapy. The patient is under my care, and I have initiated the establishment of the plan of care. This patient will be followed by a physician who will periodically review the plan of care. Total Time Total Time Spent Total Time Spent (In Minutes): 45 Discharge Plan Discharge Items Patient Disposition: Home - Self-Care Reason For Visit: V-TACH Discharge Diagnosis: Nonsustained V. tach ICD, dual, in situ Leg weakness Neck pain Activity: As commented below Activity Comment: Per PT/OT recommendation as outpatient. Non-emergency contact: Primary Care Provider Call non-emergency contact if: you have any medication questions, your symptoms worsen and your temperature is above 101.5 Follow-up/Referrals: [facility] [Other] (The [facility] team will contact you for an in-home appointment.) Jeremiah Foster MD [Primary Care Provider] - Elvia Dalal DO [Physician] - (Dr Dalal's office will contact you for an appointment.) Diet: Carb Consistent or DM2, Heart Healthy and Low Sodium (2gm) Addtl Attending Provider Instructions: Follow-up with your primary care physician within a week time and likely you will need labs CBC/CMP/magnesium/phosphorus/EKG. Cardiology evaluated you while in hospital and also EP physician evaluated you. You are being discharged on amiodarone 200 mg once daily, you will need to follow-up with cardiology in 1 week time upon discharge and EP physician on 05/07/2022. Because your EKG was abnormal ("prolonged QTc), your Celexa has been discontinued. You will need to follow-up with cardiology in 1 week time upon discharge. Keep your orthospine appointment in May. Continue with physical therapy as an outpatient. Continue to follow-up with your diabetic clinic for ongoing management of your diabetes. Wear compression stockings to help with orthostatic hypotension. Also as discussed at the bedside, recommend slow transition during changes in position. Take your medications as prescribed. Please make sure that you are able to get your medications today by calling your pharmacy before you leave the hospital so that your treatment continuity is not broken. Pending Studies at Discharge: No Stand-Alone Forms: My [facility] [employer], Smoking Cessation Medications and DC Order Prescriptions: New nicotine [Nicoderm CQ] 21 mg/24 hr Patch 24 Hour 21 mg transdermal QAM Qty: 28 0RF amiodarone 200 mg Tablet 200 mg PO DAILY Qty: 30 0RF Continued aspirin 81 mg Tablet,Chewable 81 mg PO DAILY Qty: 0 Rx Instructions: 02/18/23 PT DENIES TAKING montelukast [Singulair] 10 mg Tablet 10 mg PO QAM Qty: 0 Patient Comments: Patient states she is too busy and doesn't have time to take her meds. albuterol sulfate [Ventolin HFA] 90 mcg/actuation Hfa Aerosol Inhaler 2 puff INHALATION Q6H PRN (Reason: asthma) Rx Instructions: 02/18/23 PT NOT CURRENTLY TAKING DUE TO MED AVAILABILITY fenofibrate nanocrystallized [Tricor] 48 mg Tablet 48 mg PO DAILY Patient Comments: Patient states she is too busy and doesn't have time to take her meds Rx Instructions: 02/19/23 PT DENIES TAKING THIS MED DUE TO AVAILABILITY mometasone-formoterol 100-5 mcg/actuation Hfa Aerosol Inhaler 2 puff INHALATION BID Patient Comments: Patient states she is too busy and doesn't have time to take her meds. nitroglycerin 0.4 mg tablet, sublingual 0.4 mg sublingual UD insulin glargine [Lantus Solostar U-100 Insulin] 100 unit/mL (3 mL) insulin pen 60 units SQ HS Rx Instructions: 02/18/23 PT DENIES TAKING DUE TO AVAILABILITY lisinopril [Zestril] 2.5 mg tablet 2.5 mg PO DAILY Rx Instructions: 02/18/23 PT DENIES TAKING DUE TO AVAILABILITY polyethylene glycol 3350 [Miralax] 17 gram Powder In Packet 17 g PO DAILY PRN (Reason: Constipation) mirtazapine 15 mg tablet 7.5 mg PO HS omega-3 fatty acids Capsule 1,000 mg PO DAILY rosuvastatin 40 mg tablet 40 mg PO DAILY Jardiance 25 mg tablet 25 mg PO DAILY Rx Instructions: 02/18/23 PT DENIES TAKINH DUE TO AVAILABILITY ondansetron HCl 4 mg tablet 4 mg PO Q8 PRN (Reason: Nausea) vitamin B complex Tablet 1 tab PO DAILY metformin 500 mg tablet extended release 24 hr 1,000 mg PO BID diclofenac sodium 1 % Gel 0 g TOPICAL QID PRN (Reason: Pain) Rx Instructions: 02/18/23 PT DENIES USING THIS MED Brilinta 90 mg tablet 90 mg PO [facility] Rx Instructions: 02/18/23 PT NOT CURRENTLY TAKING DUE TO AVAILABILITY isosorbide mononitrate 30 mg Tablet Extended Release 24 Hr 30 mg PO QAM Qty: 30 0RF Rx Instructions: 02/18 23 PT DENIES TAKING DUE TO AVAILABILITY (DME) blood-glucose meter [OneTouch Ultra2 Meter] [facility] See Rx Instructions .Route Qty: 1 0RF Rx Instructions: As directed. Check blood glucose twice a day (DME) OneTouch Ultra Test Strip See Rx Instructions .Route Qty: 100 0RF Rx Instructions: As directed. Check blood glucose twice a day (DME) lancets [OneTouch Delica Plus Lancet] [facility] See Rx Instructions .Route Qty: 100 0RF Rx Instructions: As directed. Check blood glucose twice a day metoprolol succinate 50 mg tablet extended release 24 hr 75 mg PO DAILY Qty: 60 0RF Rx Instructions: 02/18/23 PT DENIES TAKING DUE TO AVAILABILITY. baclofen 10 mg tablet 10 mg PO TID gabapentin 600 mg tablet 600 mg PO BID insulin aspart U-100 100 unit/mL (3 mL) insulin pen 10 unit SUBCUT TIDM Discontinued citalopram 20 mg Tablet 20 mg PO DAILY Qty: 0 Rx Instructions: 02/18/23 PT NOT TAKING DUE TO AVAILABILITY Discharge Orders: Discharge Order (Routine); Ordered 04/16/23 Ordered By: Josh Ambrosio/Other Patient Handouts: Managing Type 2 Diabetes Admission Data Admit Date/Time: 04/11/23 17:55 Attending Provider: Josh Patricia Admit Provider: Becerra,Maddie L Primary Care Provider: Jeremiah Foster Other Providers: Maddie Becerra; Tom Monsalve; [facility],Home Healthcare; [place],Home Care; Elvia Dalal
--- NOTE | 2023-04-16 16:20 | Electrocardiogram Report ---
Test Reason : Blood Pressure : / mmHG Vent. Rate : 138 BPM Atrial Rate : 096 BPM P-R Int : 000 ms QRS Dur : 118 ms QT Int : 376 ms P-R-T Axes : 000 -42 122 degrees QTc Int : 569 ms Age and gender specific ECG analysis Ventricular tachycardia Abnormal ECG Confirmed by Leonel Arora ([id number]) on 04/16/2023 4:20:13 PM Referred By: REFERRED SELF Confirmed By:Geoffrey Arora
[2023-04-16] MEDS ORDERED: AMIODARONE 200 MG TAB PO SCH (17:00)
[2023-04-16] MEDS ORDERED: LANTUS PER UNIT CHARGE SQ SCH (21:00)
[2023-04-17] MEDS ORDERED: AMIODARONE 200 MG TAB PO SCH (09:00)
== END 2023-04-16 15:47 | disposition home or self-care (01) | DRG 309 ==
LOC: ED 14:41 → SUATTDRO 17:55 → 2S 17:55

== ENCOUNTER 2024-08-23 15:59 | Inpatient (IN) ==
[2024-08-23 16:43] LABS: Basophils # (auto) 0.07 K/uL (0.00-0.20); Basophils % (auto) 0.6 %; Eosinophils # (auto) 0.13 K/uL (0.00-0.50); Eosinophils % (auto) 1.1 %; Hematocrit (blood only) 48.2 % (37.0-47.0); Hemoglobin 16.1 g/dl (12.0-16.0); Immature Granulocytes # (auto) 0.04 K/uL (0.01-0.20); Immature Granulocytes % (auto) 0.3 %; Lymphocytes # (auto) 3.03 K/uL (1.20-3.40); Lymphocytes % (auto) 25.9 %; Mean Corpuscular Hgb Conc 33.4 g/dL (32.0-36.0); Mean Corpuscular Volume 86.7 fL (80.0-100.0); Mean Platelet Volume 9.2 fL (9.4-12.4); Monocytes # (auto) 0.53 K/uL (0.11-0.59); Monocytes % (auto) 4.5 %; Neutrophils # (auto) 7.88 K/uL (1.40-6.50); Neutrophils % (auto) 67.6 %; Platelet Count 388 K/uL (130-400); RDW Coefficient of Variation 13.9 % (11.5-14.5); RDW Standard Deviation 44.3 fL (36.4-46.3); Red Blood Count 5.56 M/uL (4.20-5.40); White Blood Count 11.68 K/ul (4.8-10.8)
--- NOTE | 2024-08-23 16:52 | XRay Report ---
INDICATION: Chest pain. TECHNIQUE: Frontal radiograph of the chest. COMPARISON: Radiograph from 07/19/2024. FINDINGS: Cardiomegaly. Mild pulmonary vascular congestion. Left-sided pacemaker. No infiltrate, pleural effusion or pneumothorax. No acute osseous abnormality evident. IMPRESSION: Mild pulmonary vascular congestion. Electronically signed by Darius Sosa 08-23-2024 4:44 PM
[2024-08-23 17:01] LABS: Albumin Globulin Ratio 1.5 (0.9-2); Albumin Level 4.7 gm/dl (3.4-5.0); BUN Creatinine Ratio 18.8 (10-20); Bilirubin,Total 0.4 mg/dl (0.2-1.0); Creatinine Clr Calc Pharmacy 80.9 ml/min; Globulin 3.1 gm/dl (2.5-4.0); Potassium 3.9 mmol/L (3.5-5.1); Total Protein 7.8 gm/dl (6.0-8.3)
[2024-08-23 17:07] LABS: Troponin I High Sensitivity 8.7 pg/ml (0-14)
[2024-08-23 17:13] LABS: Partial Thromboplastin Time 28 Seconds (21-31); Prothrombin Time 10.5 Seconds (9.0-12.0)
--- NOTE | 2024-08-23 17:28 | Emergency Department Note ---
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 Patient at least several weeks has been having intermittent chest discomfort. She states more exertional in nature. Cardiology concerned about possible EKG changes in this pain and thought this could represent unstable angina. Patient denies any syncope or significant palpitations. She denies active chest pain at this time. States he is little unsteady at times in her feet but denies any recent falls last several days. Denies again any pain or headache at this point. Has recently had some increase in smoking and does utilize coffee frequently. Denies significant abdominal pain. Denies shortness of breath. PAST MEDICAL HISTORY: As noted above MEDICATIONS: Reviewed home medications includes amiodarone, isosorbide, and Brilinta. Patient later does reply that she did not take her medicines this morning. SOCIAL HISTORY: Has been smoking PHYSICAL EXAM: GENERAL: alert and oriented in no acute distress on stretcher Head: normocephalic and atraumatic EYES: No injection, discharge or icterus. NECK: Trachea midline. ENT: Mucous membranes pink and moist. LUNGS: Airway patent. No retractions. Breath sounds clear with good air entry bilaterally. HEART: Regular rate and rhythm. No chest wall tenderness ABDOMEN: Soft and non-tender, without guarding or rebound. SKIN: Acyanotic, warm, dry, without rashes EXTREMITIES: Without swelling, tenderness or deformity NEUROLOGICAL: No focal deficits. No aphasia. No facial droop or slurred speech. Ambulatory. EK bpm normal sinus rhythm. No PVC or PAC. Some lateral T wave inversion without acute ST segment elevation noted. Compared to previous from July 19 of this year some decreased depression in lead I and elevation in III compared to previous. CONTINUOUS CARDIAC MONITORING: was ordered and showed a heart rate of 70s to 80s bpm in normal sinus rhythm Patient's laboratory studies and imaging reviewed. Differential includes Cardiac ischemia, aortic dissection, pulmonary embolism, pneumothorax, pneumonia, pericarditis, myocarditis, esophageal rupture, GERD, cholecystitis, pancreatitis, musculoskeletal, as well as other pathologies. IMPRESSION/MEDICAL DECISION MAKING: No active chest pain currently. Discussed with Dr. Monsalve who called about the patient he was standing from the office. Blood work here reassuring without significant anemia or thrombocytopenia. Denies other infectious symptoms. No significant electrolyte abnormality or elevated troponin. No acute renal injury. Chest x-ray maybe a little bit of fluid congestion but no pneumothorax or pneumonia noted. Doubt this represents hepatitis or pancreatitis based on labs. Given cardiology concern with her extensive history of unstable angina will start on heparin drip overnight. Will bring into the hospital and the hospitalist will evaluate. Cardiology is considering cardiac catheterization for further evaluation in the morning. Patient not reporting any worsening pain. Patient and family updated. Hospitalist team contacted. Pacemaker interrogation without significant findings beyond some brief intermittent runs of SVT in the 120s by quality control representative report. Seen by Dr. Lopez here in the emergency department. DIAGNOSIS: Intermittent chest pain, history CAD, hypertension DISPOSITION: Hospitalist will evaluate Patient was agreeable with this plan. Critical Care I have personally spent 33 minutes of critical care time in the direct management of this patient. This includes bedside care, interpretation of diagnostic studies, and testing, discussion with consultants, patient, and other required patient management activities. These 33 minutes is in excess of all separately billable procedures. Past Med/Surg History Problem List Angina pectoris Peripheral arterial disease Unstable angina pectoris (Acute) Prolonged QT interval Ventricular tachycardia Ischemic cardiomyopathy Near syncope Neck pain Leg weakness History of CVA (cerebrovascular accident) COPD (chronic obstructive pulmonary disease) PTSD (post-traumatic stress disorder) Depression ICD (implantable cardioverter-defibrillator), dual, in situ Nonsustained ventricular tachycardia Chronic HFrEF (heart failure with reduced ejection fraction) Diabetic neuropathy CVA (cerebrovascular accident) (Acute) Ischemic cardiomyopathy (Chronic) Anxiety (Chronic) HTN (hypertension) (Chronic) Genital herpes (Chronic) Tobacco abuse (Chronic) CAD (coronary artery disease) (Chronic) 1.History of prior inferior ST segment elevation myocardial infarction, status post PTCA and stenting of the RCA 2.Diagnostic cardiac catheterization last performed in September 2018 ([facility]) demonstrated severe multivessel coronary artery disease including the known chronic RCA occlusion, high-grade LAD disease into the D1/D2, status post PCI of LAD and angioplasty of the diagonal branch. Diabetes type 2, uncontrolled (Chronic) Previous section (Chronic) S/P TAO-BSO (Chronic) H/O exploratory laparotomy (Chronic) History of coronary artery stent placement (Chronic) H/O: hysterectomy (Chronic) Medical History Closed fracture of right distal radius Family History Other Cancer Diabetes Heart disease Hypertension Social History (Updated 08/23/24 @ 18:28 by Chiara Ac PA-C) Smoking Status: Current every day smoker Tobacco Type: Cigarettes Cigarettes Per Day: 1-1.5 ppd; Second Hand Exposure: No; Do You Dip or Chew Tobacco: No; Hx Alcohol Use: No Hx Substance Use: No Preferred Language: Bermudian Communication Ability: Effective 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 Beliefs That Will Affect Care: None marital status: Current Living Situation: Alone current occupational status: unemployed Other Information That Helps Us Care for You: No Feels Safe at Home: Yes Safety Concerns: Feels Safe At This Time Assistive Devices: Glasses Allergies Allergies Allergy/AdvReac Type Severity Reaction Status Date / Time mold Allergy Severe SNEEZING, Verified 08/23/24 17:40 WATERY EYES, MAY CAUSE SOB-DEPENDS ON MOLD adhesive Allergy Intermediate REDNESS, Verified 08/23/24 17:40 ITCHY, BLISTERS Aminoglycosides Allergy Intermediate ITCHY RASH Verified 08/23/24 17:40 bacitracin Allergy Intermediate ITCHY RASH Verified 08/23/24 17:40 neomycin Allergy Intermediate ITCHY RASH Verified 08/23/24 17:40 polymyxin B Allergy Intermediate ITCHY RASH Verified 08/23/24 17:40 sulfamethoxazole AdvReac Severe "SEVERE GI Verified 08/23/24 17:40 UPSET" trimethoprim AdvReac Severe "SEVERE GI Verified 08/23/24 17:40 UPSET" Home Meds Home Medications Medication Instructions Recorded Confirmed aspirin 81 mg chewable tablet 81 mg PO DAILY ##0 11/10/14 08/23/24 montelukast 10 mg tablet 10 mg PO HS asthma ##0 09/23/17 08/23/24 (Singulair) fenofibrate nanocrystallized 48 mg 48 mg PO DAILY 08/07/18 08/23/24 tablet (Tricor) mometasone-formoterol HFA 100 2 puff inhalation BID 08/07/18 08/23/24 mcg-5 mcg/actuation aerosol inhaler nitroglycerin 0.4 mg sublingual 0.4 mg sublingual DIRECTED PRN 10/11/18 08/23/24 tablet Chest Pain insulin glargine 100 unit/mL (3 54 units subcut HS 12/18/18 08/23/24 mL) subcutaneous pen (Lantus Solostar U-100 Insulin) lisinopril 2.5 mg tablet (Zestril) 2.5 mg PO DAILY 12/18/18 08/23/24 empagliflozin 25 mg tablet 25 mg PO DAILY 05/17/20 08/23/24 (Jardiance) rosuvastatin 40 mg tablet 40 mg PO DAILY 05/17/20 08/23/24 metformin 500 mg tablet,extended 1,000 mg PO BID 08/26/22 08/23/24 release 24 hr vitamin B complex 1 tab PO DAILY 08/26/22 08/23/24 baclofen 10 mg tablet 10 mg PO TID 04/11/23 08/23/24 gabapentin 600 mg tablet 600 mg PO TID 04/11/23 08/23/24 insulin aspart U-100 100 unit/mL 10 unit subcut TIDM 04/11/23 08/23/24 (3 mL) subcutaneous pen bupropion HCl 150 mg 24 hr tablet, 150 mg PO QAM 08/23/24 08/23/24 extended release (Wellbutrin XL) hgjioge-etdjlyklx-lfve 333 mg-133 1 tab PO DAILY 08/23/24 08/23/24 mg-5 mg tablet chlorhexidine gluconate 0.12 % 15 ml buccal BID 08/23/24 08/23/24 mouthwash coenzyme Q10 100 mg capsule 100 mg PO DAILY 08/23/24 08/23/24 (CoQ-10) fish, borage, flaxseed oils-omega 1 cap PO DAILY 08/23/24 08/23/24 3,6,9 cb #1 400 mg-400 mg-400 mg cap ([place] 3-6-9 Complex) furosemide 20 mg tablet (Lasix) 20 mg PO 2XWK 08/23/24 08/23/24 hydroxyzine HCl 25 mg tablet 25 mg PO Q6H PRN Anxiety 08/23/24 08/23/24 lidocaine HCl 2 % mucosal solution 15 ml mucous membrane QID PRN 08/23/24 08/23/24 (Lidocaine Viscous) Mouth Pain semaglutide 1 mg/dose (4 mg/3 mL) 1 mg subcut WK 08/23/24 08/23/24 subcutaneous pen injector (Ozempic) ticagrelor 90 mg tablet (Brilinta) 90 mg PO BID 08/23/24 08/23/24 Previous Rx's Medication Instructions Recorded blood sugar diagnostic (whodoyouTouch #100 ea 08/28/22 Ultra Test strips) blood-glucose meter (whodoyouTouch #1 ea 08/28/22 Ultra2 Meter) isosorbide mononitrate 30 mg 30 mg PO QAM #30 tabs 08/28/22 tablet,extended release 24 hr lancets 33 gauge (OneTouch Delica #100 ea 08/28/22 Plus Lancet) metoprolol succinate 50 mg 75 mg (1.5 x 50 mg) PO DAILY #60 08/28/22 tablet,extended release 24 hr tabs nicotine 21 mg/24 hr daily 21 mg transdermal QAM #28 ea 04/16/23 transdermal patch (Nicoderm CQ) Results & Data (ED) Vital Signs Vital Signs - 24 hr 08/23/24 16:05 08/23/24 16:55 08/23/24 16:55 Temperature 36.6 C Temperature Source Temporal Artery Scan Pulse Rate 85 Pulse Rate [Apical] Respiratory Rate 18 Respiratory Effort / Characteristics Non-Labored Spontaneous Respiratory Depth Normal Respiratory Pattern Regular Blood Pressure 175/86 H Blood Pressure [Left Arm] Blood Pressure Mean 115 Blood Pressure Mean [Left Arm] Pulse Oximetry 95 96 96 Oxygen Delivery Method Room Air Room Air Room Air Sepsis Recent Fever Within 48 Hours No Sepsis New/Unexplained Change in Mental Status N/A Sepsis Action Taken by Nursing No Action Required 08/23/24 18:00 Temperature Temperature Source Pulse Rate Pulse Rate [Apical] 74 Respiratory Rate 17 Respiratory Effort / Characteristics Respiratory Depth Respiratory Pattern Blood Pressure Blood Pressure [Left Arm] 163/95 H Blood Pressure Mean Blood Pressure Mean [Left Arm] 117 Pulse Oximetry 92 Oxygen Delivery Method Room Air Sepsis Recent Fever Within 48 Hours Sepsis New/Unexplained Change in Mental Status Sepsis Action Taken by Nursing Laboratory Data 08/23/24 16:20 08/23/24 16:20 Lab Results 08/23/24 Range/Units 16:20 WBC 11.68 H (4.8-10.8) K/ul RBC 5.56 H (4.20-5.40) M/uL Hgb 16.1 H (12.0-16.0) g/dl Hct 48.2 H (37.0-47.0) % MCV 86.7 (80.0-100.0) fL MCH 29.0 (25.0-34.0) pg MCHC 33.4 (32.0-36.0) g/dL RDW Std Deviation 44.3 (36.4-46.3) fL RDW Coeff of [place] 13.9 (11.5-14.5) % Plt Count 388 (130-400) K/uL MPV 9.2 L (9.4-12.4) fL Immature Gran % (Auto) 0.3 % Neut % (Auto) 67.6 % Lymph % (Auto) 25.9 % [place] % (Auto) 4.5 % Eos % (Auto) 1.1 % Baso % (Auto) 0.6 % Neut # (Auto) 7.88 H (1.40-6.50) K/uL Lymph # (Auto) 3.03 (1.20-3.40) K/uL [place] # (Auto) 0.53 (0.11-0.59) K/uL Eos # (Auto) 0.13 (0.00-0.50) K/uL Baso # (Auto) 0.07 (0.00-0.20) K/uL Immature Gran # (Auto) 0.04 (0.01-0.20) K/uL PT 10.5 (9.0-12.0) Seconds INR 1.0 (0.9-1.1) APTT 28 (21-31) Seconds PTT Ratio 1.0 Sodium 138 (136-145) mmol/L Potassium 3.9 (3.5-5.1) mmol/L Chloride 102 (98-107) mmol/L Carbon Dioxide 28 (21-32) mmol/L Anion Gap 8 (3-11) BUN 13 (6-23) mg/dl Creatinine 0.69 (0.6-1.2) mg/dl Est Cr Clr Drug Dosing 80.9 ml/min eGFR 99.29 BUN/Creatinine Ratio 18.8 (10-20) Glucose 179 H (70-99(Fasting)) mg/dl Calcium 10.0 (8.6-10.3) mg/dl Total Bilirubin 0.4 (0.2-1.0) mg/dl AST 12 L (13-39) U/L ALT 9 (7-52) U/L Alkaline Phosphatase 71 (34-104) U/L Troponin I High Sens 8.7 (0-14) pg/ml Total Protein 7.8 (6.0-8.3) gm/dl Albumin 4.7 (3.4-5.0) gm/dl Globulin 3.1 (2.5-4.0) gm/dl Albumin/Globulin Ratio 1.5 (0.9-2) Lipase 22 (11-82) U/L Administered Medications Baclofen (Baclofen 10 Mg Tab) 10 mg PO TID [facility] Stop: 09/22/24 20:59 Last Admin: 08/23/24 21:51 Dose: 10 mg Documented By: YUAN Chlorhexidine Gluconate (Chlorhexidine Gluconate 0.12% 480 Ml) 15 ml MT BID [facility] Stop: 09/22/24 20:59 Last Admin: 08/23/24 21:51 Dose: 15 ml Documented By: YUAN Gabapentin (Gabapentin 600 Mg Tab) 600 mg PO TID [facility] Stop: 09/22/24 20:59 Last Admin: 08/23/24 21:51 Dose: 600 mg Documented By: YUAN Heparin Sodium/Dextrose (Heparin 14724 Unit/500 Ml D5w) 25,000 units in 500 mls @ 14 mls/hr IV .Q24H [facility]; Protocol Stop: 09/22/24 17:44 Last Admin: 08/23/24 17:52 Dose: 700 units/hr, 14 mls/hr Documented By: SHAMA Co-signed By: CAPRICE Insulin Aspart (Insulin Aspart Per Unit Charge) 0 units SC ACHS [facility] Stop: 09/22/24 20:59 Last Admin: 08/23/24 21:42 Dose: Not Given Documented By: YUAN Insulin Glargine (Lantus Per Unit Charge) 14 units SQ BID [facility] Stop: 09/22/24 20:59 Last Admin: 08/23/24 21:50 Dose: 14 units Documented By: YUAN Co-signed By: ABHILASH Lisinopril (Lisinopril 2.5 Mg Tab) 2.5 mg PO DAILY [facility] Stop: 09/22/24 20:59 Last Admin: 08/23/24 21:50 Dose: 2.5 mg Documented By: YUAN Montelukast Sodium (Montelukast Sodium 10 Mg Tablet) 10 mg PO HS [facility] Stop: 09/22/24 20:59 Last Admin: 08/23/24 21:52 Dose: 10 mg Documented By: YUAN Nicotine (Nicotine 21 Mg/24 Hr Tdsy) 1 patch TD QAM [facility] Stop: 09/22/24 20:47 Last Admin: 08/23/24 21:50 Dose: 1 patch Documented By: YUAN Discontinued Medications Aspirin (Aspirin 81 Mg Chew) 324 mg PO NOW STA Stop: 08/23/24 18:08 Last Admin: 08/23/24 18:21 Dose: 324 mg Documented By: SHAMA Heparin Sodium (Porcine) (Heparin Sod (Porcine) 1000 Unit/Ml) 1 units IV NOW ONE Stop: 08/23/24 17:36 Last Admin: 08/23/24 17:52 Dose: 4,000 units Documented By: SHAMA Co-signed By: CAPRICE Heparin Sodium/Dextrose (Heparin Iv Adult Wt-Based Low-Dose W/ Initial Bolus Protocol) 1 each IV NOW STA; Protocol Stop: 08/23/24 17:21 Last Admin: 08/23/24 18:01 Dose: Not Given Documented By: SHAMA Ticagrelor (Ticagrelor 90 Mg Tab) 180 mg PO ONE ONE Stop: 08/23/24 18:09 Last Admin: 08/23/24 18:21 Dose: 180 mg Documented By: SHAMA Imaging Data Radiologist's Impression: Chest X-Ray 08/23/24 16:08 INDICATION: Chest pain. TECHNIQUE: Frontal radiograph of the chest. COMPARISON: Radiograph from 07/19/2024. FINDINGS: Cardiomegaly. Mild pulmonary vascular congestion. Left-sided pacemaker. No infiltrate, pleural effusion or pneumothorax. No acute osseous abnormality evident. IMPRESSION: Mild pulmonary vascular congestion. Electronically signed by Darius Sosa 08-23-2024 4:44 PM Discharge Plan Visit Data Chief Complaint: Abnormal Labs/Diagnostic Testing Stated Complaint: REF BY DOC,ABNORMAL EKG ED Provider: Reynaldo Pantoja Discharge Problem: Unstable angina pectoris Patient Disposition: Admitted As Inpatient Condition: Fair Discharge Instructions Interventions: ED Discharge Assessment Last Done: 08/23/24 19:29
[2024-08-23] MEDS: HEPARIN SOD (PORCINE) 1000 UNIT/ML IV ONE (17:52)
[2024-08-23] MEDS: HEPARIN 25000 UNIT/500 ML D5W 25,000 UNITS/500 ML BAG IV SCH (17:52)
--- NOTE | 2024-08-23 17:53 | History & Physical Report ---
Date of Service August 23, 2024 Assessment & Plan (1) Angina pectoris: (2) Ischemic cardiomyopathy: (3) ICD (implantable cardioverter-defibrillator), dual, in situ: (4) Ventricular tachycardia: Plan: Patient is 59 year old female with PMH HTN, dyslipidemia, elevated triglycerides, insulin-dependent DM II, ventricular tachycardia, ischemic cardiomyopathy, s/p ICD, tobacco use, and others listed below presented to ER from cardiology clinic for ongoing angina symptoms and abnormal EKG today at outpatient cardiology clinic Today in ER BP elevated. Denies CP or SOB at this time. Troponin negative Monitor on telemetry Continue aspirin, Brilinta, metoprolol, rosuvastatin Cardiology consult. Suggested IV heparin. NPO MN for cardiac cath tomorrow CBC, BMP in am EKG in am Of note: amiodarone had been discontinued previously. Will need to discuss crestor 40mg and brillinta with cardiology tomorrow as has reported interaction and risk of rhabdomyolysis (5) HTN (hypertension): Plan: Continue lisinopril, metoprolol (6) Diabetes type 2, uncontrolled: Plan: Insulin-dependent A1c: 12.3 on 06/08/2024 Hold home metformin, Jardiance, Ozempic Plan to decrease home Lantus as is n.p.o. at midnight NovoLog sliding scale #COPD No signs exacerbation Continue home inhalers (7) Tobacco abuse: Plan: Smoking cessation encouraged Nicotine patch DVT Prophylaxis On IV Heparin Admit telemetry Full Code as per discussion with pt Follows with Dr Foster for routine care Pt was seen and care coordinated with Dr Cho. See addendum I spent a total of 63 minutes reviewing notes, outpatient records, labs, medication, coordinating, documenting and providing care for this patient excluding time spent in the performance of separately billed services and excluding time spent by another provider/QHP. History of Present Illness Chief Complaint: Sent from cardiology clinic for concern for angina Primary Care Provider: Jeremiah Foster MD Patient is 59 year old female with PMH HTN, dyslipidemia, elevated triglycerides, insulin-dependent DM II, ventricular tachycardia, ischemic ca rdiomyopathy, s/p ICD, tobacco use, and others listed below presented to ER from cardiology clinic for angina symptoms and abnormal EKG. Patient was seen today 08/23/2024 at cardiology clinic and EKG with ST changes compared to prior. Patient has also been reporting having chest pain everyday with exertion like vacuuming that is nonradiating and reports chest discomfort resolves upon rest. She has not needed to take nitro at home. Also reports intermittent episodes of sensation of heart racing. She reports has chronic nausea and vomiting after takes Ozempic on Saturdays and following her dose she has nausea and vomiting. States has intermittent cough. Denies extremity edema, fever/chills, diaphoresis, hematemesis, melena, hematochezia, diarrhea, ALEJANDRO, dizziness, syncope, sore throat, extremity weakness, rashes, urinary symptoms. Allergies Allergy/AdvReac Type Severity Reaction Status Date / Time mold Allergy Severe SNEEZING, Verified 08/23/24 17:40 WATERY EYES, MAY CAUSE SOB-DEPENDS ON MOLD adhesive Allergy Intermediate REDNESS, Verified 08/23/24 17:40 ITCHY, BLISTERS Aminoglycosides Allergy Intermediate ITCHY RASH Verified 08/23/24 17:40 bacitracin Allergy Intermediate ITCHY RASH Verified 08/23/24 17:40 neomycin Allergy Intermediate ITCHY RASH Verified 08/23/24 17:40 polymyxin B Allergy Intermediate ITCHY RASH Verified 08/23/24 17:40 sulfamethoxazole AdvReac Severe "SEVERE GI Verified 08/23/24 17:40 UPSET" trimethoprim AdvReac Severe "SEVERE GI Verified 08/23/24 17:40 UPSET" Home Medications Medication Instructions Recorded Confirmed Type aspirin 81 mg chewable tablet 81 mg PO DAILY ##0 11/10/08/23/24 History montelukast 10 mg tablet 10 mg PO HS asthma ##0 09/23/17 08/23/24 History (Singulair) fenofibrate nanocrystallized 48 mg 48 mg PO DAILY 08/07/18 08/23/24 History tablet (Tricor) mometasone-formoterol HFA 100 2 puff inhalation BID 08/07/18 08/23/24 History mcg-5 mcg/actuation aerosol inhaler nitroglycerin 0.4 mg sublingual 0.4 mg sublingual DIRECTED PRN 10/11/18 08/23/24 History tablet Chest Pain insulin glargine 100 unit/mL (3 54 units subcut HS 12/18/18 08/23/24 History mL) subcutaneous pen (Lantus Solostar U-100 Insulin) lisinopril 2.5 mg tablet (Zestril) 2.5 mg PO DAILY 12/18/18 08/23/24 History empagliflozin 25 mg tablet 25 mg PO DAILY 05/17/20 08/23/24 History (Jardiance) rosuvastatin 40 mg tablet 40 mg PO DAILY 05/17/20 08/23/24 History metformin 500 mg tablet,extended 1,000 mg PO BID 08/26/22 08/23/24 History release 24 hr vitamin B complex 1 tab PO DAILY 08/26/22 08/23/24 History blood sugar diagnostic ([facility] ea 08/28/22 08/23/24 Rx Ultra Test strips) blood-glucose meter ([facility] #[facility] ea 08/28/22 08/23/24 Rx Ultra2 Meter) isosorbide mononitrate 30 mg 30 mg PO QAM #30 tabs 08/28/22 08/23/24 Rx tablet,extended release 24 hr lancets 33 gauge ([facility] #[facility] ea 08/28/22 08/23/24 Rx Plus Lancet) metoprolol succinate 50 mg 75 mg (1.5 x 50 mg) PO DAILY #60 08/28/22 08/23/24 Rx tablet,extended release 24 hr tabs baclofen 10 mg tablet 10 mg PO TID 04/11/23 08/23/24 History gabapentin 600 mg tablet 600 mg PO TID 04/11/23 08/23/24 History insulin aspart U-100 100 unit/mL 10 unit subcut TIDM 04/11/23 08/23/24 History (3 mL) subcutaneous pen nicotine 21 mg/24 hr daily 21 mg transdermal QAM #28 ea 04/16/23 08/23/24 Rx transdermal patch (Nicoderm CQ) bupropion HCl 150 mg 24 hr tablet, 150 mg PO QAM 08/23/24 08/23/24 History extended release (Wellbutrin XL) nkufyfz-tzrnvpjti-njre 333 mg-133 1 tab PO DAILY 08/23/24 08/23/24 History mg-5 mg tablet chlorhexidine gluconate 0.12 % 15 ml buccal BID 08/23/24 08/23/24 History mouthwash coenzyme Q10 100 mg capsule 100 mg PO DAILY 08/23/24 08/23/24 History (CoQ-10) fish, borage, flaxseed oils-omega 1 cap PO DAILY 08/23/24 08/23/24 History 3,6,9 cb #1 400 mg-400 mg-400 mg cap ([place] 3-6-9 Complex) furosemide 20 mg tablet (Lasix) 20 mg PO 2XWK 08/23/24 08/23/24 History hydroxyzine HCl 25 mg tablet 25 mg PO Q6H PRN Anxiety 08/23/24 08/23/24 History lidocaine HCl 2 % mucosal solution 15 ml mucous membrane QID PRN 08/23/24 08/23/24 History (Lidocaine Viscous) Mouth Pain semaglutide 1 mg/dose (4 mg/3 mL) 1 mg subcut WK 08/23/24 08/23/24 History subcutaneous pen injector (Ozempic) ticagrelor 90 mg tablet (Brilinta) 90 mg PO BID 08/23/24 08/23/24 History Past Med/Surg History Problem List Angina pectoris Peripheral arterial disease Unstable angina pectoris Prolonged QT interval Ventricular tachycardia Ischemic cardiomyopathy Near syncope Neck pain Leg weakness History of CVA (cerebrovascular accident) COPD (chronic obstructive pulmonary disease) PTSD (post-traumatic stress disorder) Depression ICD (implantable cardioverter-defibrillator), dual, in situ Nonsustained ventricular tachycardia Chronic HFrEF (heart failure with reduced ejection fraction) Diabetic neuropathy CVA (cerebrovascular accident) (Acute) Ischemic cardiomyopathy (Chronic) Anxiety (Chronic) HTN (hypertension) (Chronic) Genital herpes (Chronic) Tobacco abuse (Chronic) CAD (coronary artery disease) (Chronic) 1.History of prior inferior ST segment elevation myocardial infarction, status post PTCA and stenting of the RCA 2.Diagnostic cardiac catheterization last performed in September 2018 ([facility]) demonstrated severe multivessel coronary artery disease including the known chronic RCA occlusion, high-grade LAD disease into the D1/D2, status post PCI of LAD and angioplasty of the diagonal branch. Diabetes type 2, uncontrolled (Chronic) Previous section (Chronic) S/P TAO-BSO (Chronic) H/O exploratory laparotomy (Chronic) History of coronary artery stent placement (Chronic) H/O: hysterectomy (Chronic) Medical History Closed fracture of right distal radius Family History Other Cancer Diabetes Heart disease Hypertension Social History (Updated 08/23/24 @ 18:28 by Chiara Ac PA-C) Smoking Status: Current every day smoker Tobacco Type: Cigarettes Cigarettes Per Day: 1-1.5 ppd; Second Hand Exposure: No; Do You Dip or Chew Tobacco: No; Hx Alcohol Use: No Hx Substance Use: No Preferred Language: Albanian Communication Ability: Effective Management Lead Required: No Beliefs That Will Affect Care: None marital status: Current Living Situation: Alone current occupational status: unemployed Feels Safe at Home: Yes Assistive Devices: Walker and Wheelchair Review of Systems Review of Systems: All systems reviewed & are unremarkable except as noted in HPI & below Physical Exam Physical Exam: PE per Dr Cho Results & Data Results & Data Vital Signs (Past 12 Hours) Vital Signs Temp Pulse Resp BP Pulse Ox O2 Del Method 08/23/24 16:55 96 Room Air 08/23/24 16:55 96 Room Air 08/23/24 16:05 36.6 C 85 18 175/86 H 95 Room Air Laboratory Results Short CBC 08/23/24 Range/Units 16:20 WBC 11.68 H (4.8-10.8) K/ul Hgb 16.1 H (12.0-16.0) g/dl Hct 48.2 H (37.0-47.0) % Plt Count 388 (130-400) K/uL BMP 08/23/24 16:20 Sodium 138 Potassium 3.9 Chloride 102 Carbon Dioxide 28 BUN 13 Creatinine 0.69 Glucose 179 H Calcium 10.0 Liver Function 08/23/24 Range/Units 16:20 Total Bilirubin 0.4 (0.2-1.0) mg/dl AST 12 L (13-39) U/L ALT 9 (7-52) U/L Alkaline Phosphatase 71 (34-104) U/L Albumin 4.7 (3.4-5.0) gm/dl Diagnostic Findings Chest X-Ray 08/23/24 16:08 INDICATION: Chest pain. TECHNIQUE: Frontal radiograph of the chest. COMPARISON: Radiograph from 07/19/2024. FINDINGS: Cardiomegaly. Mild pulmonary vascular congestion. Left-sided pacemaker. No infiltrate, pleural effusion or pneumothorax. No acute osseous abnormality evident. IMPRESSION: Mild pulmonary vascular congestion. Electronically signed by Daruis Sosa 08-23-2024 4:44 PM Supervising Physician Co-Signing Physician Notes Sent in from Cards office for evaluation of intermittent chest pain Reports chest pain is usually exertional and resolves with rest On exam General: Not in distress Eyes: PERRL, conjunctivae normal, not pale, anicteric sclerae, EOM intact bilaterally ENMT: External ear and nose normal, oropharynx normal Respiratory: Normal respiratory effort, no respiratory distress, lungs clear to auscultation, no crackles and no wheezes Cardiovascular: RRR S1 S2 Gastrointestinal (Abdomen): Abdomen is not distended, soft, non-tender to palpation, no guarding, no palpable hepatosplenomegaly, normal bowel sounds Musculoskeletal: No pedal edema Neurologic: Alert and oriented x 3, No focal weakness, sensation grossly intact Psychiatric: Euthymic affect Angina pectoris Cards eval and recs noted Currently on hep gtt. Got ASA and brilinta loading NPO past midnight with plans for cardiac cath in AM Other plans as detailed by Chiara Ac PA-C I spent a total of 35 minutes coordinating, documenting and providing care for this patient excluding time spent in performance of separately billed services (5) HTN (hypertension) Hypertension type: primary hypertension Qualified Code(s): I10 - Essential (primary) hypertension (6) Diabetes type 2, uncontrolled Glycemic state: with hyperglycemia Qualified Code(s): E11.65 - Type 2 diabetes mellitus with hyperglycemia
[2024-08-23] MEDS: Heparin IV Adult Wt-Based Low-Dose w/ INITIAL Bolus Protocol IV STA (18:01)
--- NOTE | 2024-08-23 18:03 | Cardiology Consultation ---
Date of Consultation August 23, 2024 Assessment & Plan (1) Unstable angina pectoris: * Based on her symptoms and EKG, I am concerned that there has been progression in her coronary heart disease in the left anterior descending coronary distribution * She has a known chronic total occlusion of the right coronary artery and had complex PCI, drug-eluting stents to the LAD in 2019 * Medication nonadherence noted. She states that she has not been taking her Brilinta recently but is not able to specify for how long. She states that a refill is waiting for her at the pharmacy * She did not take any of her medications today * Recommend reinitiating aspirin. Would administer loading dose of Brilinta, 180 mg p.o. x 1 now and 90 mg twice daily to follow starting tomorrow morning. 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 * Would make patient n.p.o. after midnight for potential cardiac catheterization tomorrow (2) Ischemic cardiomyopathy: * Resume medications as previously prescribed (3) HTN (hypertension): * Patient with noted differential between right upper extremity and left upper extremity blood pressures. At the time cardiac catheterization in 2019, all, could not be passed via the right radial artery approach suggesting subclavian artery stenosis. * Would measure blood pressures from the left arm * Resume previous blood pressure medication (4) Peripheral arterial disease: * Check upper extremity arterial duplex due to concerns with possible right subclavian stenosis (5) Ventricular tachycardia: * Resume metoprolol. As previously noted amiodarone discontinued due to history of corneal deposits. History of Present Illness History of Present Illness Sandy Wolfe Is a 59-year-old female seen in cardiology consultation per the request of Dr. Pantoja for the evaluation of recent chest discomfort concerning for angina and an abnormal EKG. Patient is accompanied by her daughter, Caren. The patient has a history of complex coronary heart disease and ischemic cardiomyopathy as well as sustained ventricular tachycardia as described in detail below. She had recently presented to the emergency department on 07/19/24 for complaints of chest discomfort around the area of her left subclavian AICD. Interrogation of her device was within normal limits at that time and high-sensitivity troponin was negative. EKG revealed findings of normal sinus rhythm with age- indeterminate inferior infarct and age undetermined septal infarction relatively unchanged compared to previous tracing dating back to Aug, 2023. The patient subsequently saw my partner Dr Tom Monsalve in outpatient cardiology follow-up today and on further evaluation describes a discomfort around the area of her AICD but also a separate discomfort that she describes as a "burning "sensation that is in the midline of the chest with activities such as climbing stairs and vacuuming with associated dyspnea. The patient has been nonadherent to her medications including rosuvastatin and fenofibrate with most recent lab work revealing uncontrolled dyslipidemia, direct LDL cholesterol of 201 mg/dL, serum triglyceride level 608 mg/dL hemoglobin A1c 12.3%. EKG performed today as an outpatient revealed sinus rhythm which age undetermined septal infarct pattern, age-indeterminate inferior infarct pattern, incomplete left bundle branch block, and repolarization abnormalities in the precordial leads consistent with anterior ischemia which are new compared to the previous tracing performed while in the emergency department on July 19, 2024. The patient was subsequent referred to the emergency department for further evaluation. Currently she is chest pain-free. History: 1. prior admission following a near syncopal episode. Suspect hypoglycemia versus hypotension 2. Chronic coronary artery disease, severe ischemic cardiomyopathy. EF 25 to 30% (September 2018); 45 to 50% (August 27, 2022) 3. Inferior ST segment elevation myocardial infarction, status post PTCA and stenting of the RCA 4. Cardiac catheterization last in September 2018 ([facility]) with severe multivessel CAD (chronic RCA occlusion, high-grade LAD disease into the D1/D2 S/P PCI of LAD and angioplasty of the diagonal). 5. NYHA Class III 6. Sustained VT S/P cardioversion, transient use of amiodarone. Amiodarone discontinued by patient in March 2019 (corneal deposits). 7. October 17, 2018 dual chamber Medtronic ICD implantation. 8. Hypertension 9. Dyslipidemia. LDL goal less than 70 mg/dL. 10. Chronic tobacco abuse, COPD 11. Type II diabetes mellitus 12. Depression, PTSD, anxiety. 13. Noncompliance 14.Ongoing cigarette smoking, smoking 1.5 packs of cigarettes per day (08/23/2024) Allergies Allergy/AdvReac Type Severity Reaction Status Date / Time mold Allergy Severe SNEEZING, Verified 08/23/24 17:40 WATERY EYES, MAY CAUSE SOB-DEPENDS ON MOLD adhesive Allergy Intermediate REDNESS, Verified 08/23/24 17:40 ITCHY, BLISTERS Aminoglycosides Allergy Intermediate ITCHY RASH Verified 08/23/24 17:40 bacitracin Allergy Intermediate ITCHY RASH Verified 08/23/24 17:40 neomycin Allergy Intermediate ITCHY RASH Verified 08/23/24 17:40 polymyxin B Allergy Intermediate ITCHY RASH Verified 08/23/24 17:40 sulfamethoxazole AdvReac Severe "SEVERE GI Verified 08/23/24 17:40 UPSET" trimethoprim AdvReac Severe "SEVERE GI Verified 08/23/24 17:40 UPSET" Home Medications Medication Instructions Recorded Confirmed Type aspirin 81 mg chewable tablet 81 mg PO DAILY ##0 11/10/14 08/23/24 History montelukast 10 mg tablet 10 mg PO HS asthma ##0 09/23/17 08/23/24 History (Singulair) fenofibrate nanocrystallized 48 mg 48 mg PO DAILY 08/07/18 08/23/24 History tablet (Tricor) mometasone-formoterol HFA 100 2 puff inhalation BID 08/07/18 08/23/24 History mcg-5 mcg/actuation aerosol inhaler nitroglycerin 0.4 mg sublingual 0.4 mg sublingual DIRECTED PRN 10/11/18 08/23/24 History tablet Chest Pain insulin glargine 100 unit/mL (3 54 units subcut HS 12/18/18 08/23/24 History mL) subcutaneous pen (Lantus Solostar U-100 Insulin) lisinopril 2.5 mg tablet (Zestril) 2.5 mg PO DAILY 12/18/18 08/23/24 History empagliflozin 25 mg tablet 25 mg PO DAILY 05/17/20 08/23/24 History (Jardiance) rosuvastatin 40 mg tablet 40 mg PO DAILY 05/17/20 08/23/24 History metformin 500 mg tablet,extended 1,000 mg PO BID 08/26/22 08/23/24 History release 24 hr vitamin B complex 1 tab PO DAILY 08/26/22 08/23/24 History blood sugar diagnostic ([employer] #100 ea 08/28/22 04/11/23 Rx Ultra Test strips) blood-glucose meter ([employer] #1 ea 08/28/22 04/11/23 Rx Ultra2 Meter) isosorbide mononitrate 30 mg 30 mg PO QAM #30 tabs 08/28/22 08/23/24 Rx tablet,extended release 24 hr lancets 33 gauge ([employer] [employer] #100 ea 08/28/22 04/11/23 Rx Plus Lancet) metoprolol succinate 50 mg 75 mg (1.5 x 50 mg) PO DAILY #60 08/28/22 08/23/24 Rx tablet,extended release 24 hr tabs baclofen 10 mg tablet 10 mg PO TID 04/11/23 08/23/24 History gabapentin 600 mg tablet 600 mg PO TID 04/11/23 08/23/24 History insulin aspart U-100 100 unit/mL 10 unit subcut TIDM 04/11/23 08/23/24 History (3 mL) subcutaneous pen nicotine 21 mg/24 hr daily 21 mg transdermal QAM #28 ea 04/16/23 08/23/24 Rx transdermal patch (Nicoderm CQ) bupropion HCl 150 mg 24 hr tablet, 150 mg PO QAM 08/23/24 08/23/24 History extended release (Wellbutrin XL) gexwhgl-vaskxvlci-auyf 333 mg-133 1 tab PO DAILY 08/23/24 08/23/24 History mg-5 mg tablet chlorhexidine gluconate 0.12 % 15 ml buccal BID 08/23/24 08/23/24 History mouthwash coenzyme Q10 100 mg capsule 100 mg PO DAILY 08/23/24 08/23/24 History (CoQ-10) fish, borage, flaxseed oils-omega 1 cap PO DAILY 08/23/24 08/23/24 History 3,6,9 cb #1 400 mg-400 mg-400 mg cap ([place] 3-6-9 Complex) furosemide 20 mg tablet (Lasix) 20 mg PO 2XWK 08/23/24 08/23/24 History hydroxyzine HCl 25 mg tablet 25 mg PO Q6H PRN Anxiety 08/23/24 08/23/24 History lidocaine HCl 2 % mucosal solution 15 ml mucous membrane QID PRN 08/23/24 08/23/24 History (Lidocaine Viscous) Mouth Pain phenazopyridine 200 mg tablet 200 mg PO TID PRN PAINFUL URINATION 08/23/24 08/23/24 History (Pyridium) semaglutide 1 mg/dose (4 mg/3 mL) 1 mg subcut WK 08/23/24 08/23/24 History subcutaneous pen injector (Ozempic) ticagrelor 90 mg tablet (Brilinta) 90 mg PO BID 08/23/24 08/23/24 History Patient History Medical History Closed fracture of right distal radius Family History Other Cancer Diabetes Heart disease Hypertension Social History Smoking Status: Current every day smoker Tobacco Type: Cigarettes Cigarettes Per Day: 1 ppd; Second Hand Exposure: No; Do You Dip or Chew Tobacco: No; Hx Alcohol Use: No Hx Substance Use: No Preferred Language: [place] Communication Ability: Effective 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 Beliefs That Will Affect Care: None marital status: Current Living Situation: Alone current occupational status: unemployed Feels Safe at Home: Yes Assistive Devices: Walker and Wheelchair Review of Systems Review of Systems: All systems reviewed & are unremarkable except as noted in HPI & below Physical Exam Physical Exam: Temp Pulse Resp BP Pulse Ox O2 Del Method 36.6 C 85 18 175/86 H 96 Room Air 08/23/24 16:05 08/23/24 16:05 08/23/24 16:05 08/23/24 16:05 08/23/24 16:55 08/23/24 16:55 General: no acute distress and stated age Eyes: conjunctiva are pink and non-injected, sclera clear Neck: normal jugular venous pulse, no hepatojugular reflux Chest: normal shape and normal respiratory effort -Left infraclavicular AICD pocket clean dry and intact, no erythema, no pain on palpitation no hematoma Lungs: clear to auscultation and percussion Cardiac Exam: - regular heart sounds, no murmurs, rubs, or gallops, no jugular venous distention Abdomen: abdomen soft, non-tender, no abnormal masses and no hepatosplenomegaly Musculoskeletal: no gait disturbance, no weakness Extremities: no edema and no cyanosis Neuro:awake, conversant, follows commands, no focal motor deficits Psych: appropriate affect and insight. Results & Data Vital Signs (Past 12 Hours) Laboratory Results Cardiac Enzymes 08/23/24 Range/Units 16:20 AST 12 L (13-39) U/L Troponin I High Sens 8.7 (0-14) pg/ml Coagulation 08/23/24 Range/Units 16:20 PT 10.5 (9.0-12.0) Seconds APTT 28 (21-31) Seconds CBC 08/23/24 Range/Units 16:20 WBC 11.68 H (4.8-10.8) K/ul RBC 5.56 H (4.20-5.40) M/uL Hgb 16.1 H (12.0-16.0) g/dl Hct 48.2 H (37.0-47.0) % Plt Count 388 (130-400) K/uL Neut # (Auto) 7.88 H (1.40-6.50) K/uL Lymph # (Auto) 3.03 (1.20-3.40) K/uL [place] # (Auto) 0.53 (0.11-0.59) K/uL Eos # (Auto) 0.13 (0.00-0.50) K/uL Baso # (Auto) 0.07 (0.00-0.20) K/uL Comprehensive Metabolic Panel 08/23/24 Range/Units 16:20 Sodium 138 (136-145) mmol/L Potassium 3.9 (3.5-5.1) mmol/L Chloride 102 (98-107) mmol/L Carbon Dioxide 28 (21-32) mmol/L BUN 13 (6-23) mg/dl Creatinine 0.69 (0.6-1.2) mg/dl Glucose 179 H (70-99(Fasting)) mg/dl Calcium 10.0 (8.6-10.3) mg/dl AST 12 L (13-39) U/L ALT 9 (7-52) U/L Alkaline Phosphatase 71 (34-104) U/L Total Protein 7.8 (6.0-8.3) gm/dl Albumin 4.7 (3.4-5.0) gm/dl Intake and Output 08/23/24 08/23/24 08/23/24 06:59 14:59 22:59 Other: Weight 69.2 kg Weight Measurement Method Chair Scale Patient Weight 08/24/24 06:59 Weight 69.2 kg Diagnostic Findings Pacemaker interrogation July 19, 2024: No evidence of ventricular tachycardia or atrial dysrhythmias -VS 97% with 2.8% atrial pacing. 2D echo report [facility] 04/12/23: LVEF 45-50% Large size apical, septal, anteroseptal, and inferior wall motion abnormality with hypokinesis to dyskinesis of the segments. Small size inferior aneurysm. Aortic valve sclerosis without stenosis. Mild mitral regurgitation. EKG performed 08/23/2024 at 1526 at [facility] and interpret independently: Normal sinus rhythm at 73 bpm. Age-indeterminate septal infarct pattern Age-indeterminate inferior infarct pattern Incomplete left bundle branch block ST-T wave abnormality in the precordial leads V3 to V6 consistent with anterolateral ischemia --Repeat tracing performed in the emergency department is currently pending (3) HTN (hypertension) Hypertension type: primary hypertension Qualified Code(s): I10 - Essential (primary) hypertension
[2024-08-23] MEDS: ASPIRIN 81 MG CHEW PO STA (18:21)
[2024-08-23] MEDS: TICAGRELOR 90 MG TAB PO ONE (18:21)
[2024-08-23] MEDS ORDERED: POLYETHYLENE (MIRALAX) 17 GM PACK PO PRN (20:48)
[2024-08-23] MEDS ORDERED: GLUCAGON FOR INJ 1 MG VIAL SQ PRN (20:48)
[2024-08-23] MEDS ORDERED: GLUCOSE 10 TAB/TUBE PO PRN (20:48)
[2024-08-23] MEDS ORDERED: GLUCOSE 40% GEL 15 GM TUBE PO PRN (20:48)
[2024-08-23] MEDS ORDERED: ACETAMINOPHEN 325 MG TAB PO PRN (20:48)
[2024-08-23] MEDS ORDERED: CARBOHYDRATES FOR HYPOGLYCEMIA PO PRN (20:48)
[2024-08-23] MEDS ORDERED: ONDANSETRON INJ 2 MG/ML 2 ML VIAL IV PRN (20:48)
[2024-08-23] MEDS ORDERED: DEXTROSE 50% 50 ML SYRINGE IV PRN (20:48)
[2024-08-23] MEDS: INSULIN ASPART PER UNIT CHARGE SC SCH (21:42)
[2024-08-23] MEDS: lisinopril 2.5 MG TAB PO SCH (21:50)
[2024-08-23] MEDS: LANTUS PER UNIT CHARGE SQ SCH (21:50)
[2024-08-23] MEDS: NICOTINE 21 MG/24 HR TDSY TD SCH (21:50)
[2024-08-23] MEDS: CHLORHEXIDINE GLUCONATE 0.12% 480 ML MT SCH (21:51)
[2024-08-23] MEDS: BACLOFEN 10 MG TAB PO SCH (21:51)
[2024-08-23] MEDS: GABAPENTIN 600 MG TAB PO SCH (21:51)
[2024-08-23] MEDS: MONTELUKAST SODIUM 10 MG TABLET PO SCH (21:52)
--- NOTE | 2024-08-23 23:37 | Ultrasound Report ---
Exam(s): US ARTERIAL BILATERAL UPPER EXTREMITIES EXAM: US Duplex Bilateral Upper Extremities Arteries CLINICAL HISTORY: Reason for exam: suspect right subclavian artery stenosis. TECHNIQUE: Real-time duplex ultrasound scan of the bilateral upper extremity arteries integrating B-mode two-dimensional vascular structure, Doppler spectral analysis and color flow Doppler imaging. COMPARISON: No relevant prior studies available. FINDINGS: Right subclavian artery: Right subclavian artery normal waveform, 119 cm/s. Right axillary artery: Right axillary artery, triphasic waveform, 54 cm/s. Right brachial artery: Right brachial artery, triphasic waveform, 91, 112, and 105 cm/s. Right radial artery: Right radial artery triphasic waveform, 83 cm/s. Right ulnar artery: No acute findings. No occlusion or significant stenosis on color flow and spectral Doppler imaging. Normal waveform. Left subclavian artery: Left subclavian artery, normal waveform, 151, 136, and 90 cm/s. Left axillary artery: Left axillary artery, triphasic waveform, 63 cm/s. Left brachial artery: Left brachial artery, triphasic waveform, 59, 104, and 113 cm/s. Left radial artery: Left radial artery, triphasic waveform, 67 cm/s. Left ulnar artery: Left ulnar artery, triphasic waveform, 93 cm/s. Other arteries: Right common carotid artery, triphasic waveform, 61 cm/s. Right vertebral artery, normal waveform, 45 cm/s. Antegrade flow. Mild artery, triphasic waveform, 120 and 56 cm/s. Left common carotid artery, normal waveform, 71 cm/s. Left vertebral artery, normal waveform, 40 cm/s. Antegrade flow. Soft tissues: Unremarkable. IMPRESSION: No acute findings in the bilateral upper extremity arteries. No evidence of right subclavian arterial stenosis. Electronically signed by: Reynaldo Griggs MD 08/23/24 23:35 PM
[2024-08-24 00:45] LABS: ANTI-Xa, UFH(UnfractionatedHep 0.14 IU/ml (0.3-0.7)
[2024-08-24] MEDS: HEPARIN SOD (PORCINE) 1000 UNIT/ML IV ONE (01:35)
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
--- OUTSIDE RECORDS SUMMARY | 2024-08-24 02:43 | External Medical Summary | Summary of Care ---
Author Name Unknown Organization [facility] Address [address] [place] [address] Phone [phone] Care Team Providers Care Caving Guide Name Role Phone Jeremiah Foster MD Primary Care Provider [phone] Encounter Details Date Type Department Care Team (Late st Contact Info) Description 07/19/2024 Result Scan Unspecified Department <No scans attached> [...] this encounter (statuses as of 07/21/2024) Medications Hendricks 3-6-9 Fatty Acids (OMEGA 3-6-9 COMPLEX) Capsule Take 1 Cap by mouth daily. Active B Complex 100 TR Oral Tablet Extended Release Take by mouth . Active Calcium-Magnesium- Zinc 333-133-5 MG Oral Tablet Take by mouth. Act sam Dexcom G6 Ribbon Lap Machine Tender Device Use as directed. Use to read [...] goal of less than 7.0% ([facility]) Use as directed. Use 1 every 90 days E.11.9 1 Each 3 12/07/2023 12:24 PM EDT 09/01/19 24 Active Additional Information Patient not taking.Reported on 06/12/2024 Pen Brick 32G X 4 MMIndications:Type 2 diabetes mellitus with hemoglobin A1c goal of less than 7.0% ([facility]) Use to injection insulin up to 4 [...] disorder with single episode, in full remission ([facility]) TAKE 1 TABLET BY MOUTH EVERY DAY [...] goal of less than 7.0% ([facility]),Dyslipidemia , goal LDL below 70,Hypertensive heart disease with heart failure ([facility]),Ischemic cardiomyopathy,HFr EF (heart failure with reduced ejection fraction) ([facility]),HTN, goal below 140/90 TAKE 1 TABLET BY MOUTH EVERY DAY IN THE MORNING 90 Tablet 1 02/14/20 24 Active Jardiance 25 MG Oral Tablet (Empagliflozin)Ind ications:Type 2 diabetes mellitus with hemoglobin A1c goal of less than 7.0% ([facility]),Hypertensive heart disease with heart failure ([facility]),Ischemic cardiomyopathy,HFr EF (heart failure with reduced ejection fraction) ([facility]) TAKE 1 TABLET BY MOUTH EVERY DAY IN THE MORNING 90 Tablet 1 02/14/20 24 Active Aspirin Low Dose 81 MG Oral Tablet Delayed Release (aspirin enteric coated) TAKE 1 TABLET BY MOUTH EVERY DAY IN THE MORNING 90 Tablet 1 02/14/20 24 Active Fenofibrate 48 MG Oral Tablet (Tricor)Indication s:Dyslipidemia, goal LDL below 70,Coronary artery disease involving [place] heart without angina pectoris, unspecified vessel or [...] to be determined (HCC) INHALE 2 PUFFS INTO THE LUNGS TWICE A DAY 39 g 2 04/05/20 24 Active Insulin Aspart FlexPen 100 UNIT/ML Subcutaneous Solution Pen-injectorIndica tions:Type 2 diabetes mellitus with hemoglobin A1c goal of less than 7.0% ([facility]) INJECT 10 UNITS UNDER THE SKIN IN [...] IN THE MORNING 90 Tablet 2 04/05/20 24 Active Dexcom G6 SensorIndications: Type 2 diabetes [...] Oral Tablet (Brilinta)Indicati ons:Coronary artery disease involving [place] coronary artery of [place] heart without angina pectoris Take 1 Tablet by mouth in the morning and 1 Tablet before bedtime. 180 Tablet 3 06/12/19 25 Active Rosuvastatin Calcium 40 MG Oral Tablet (Crestor)Indicatio ns:Dyslipidemia, goal LDL below 70,Coronary artery disease involving [place] coronary artery of [place] heart without angina pectoris Take 1 Tablet [...] Tablet Sublingual (Nitrostat)Indicat ions:Coronary artery disease involving [place] coronary artery of [place] heart without angina pectoris Place 1 Tablet under the tongue every 5 minutes as needed for Pain, Chest. 25 Tablet 2 06/12/19 25 Active Glucose Blood In Vitro Strip (Envervuch Ultra Blue)Indications:T ype 2 diabetes mellitus with hemoglobin A1c goal of less than 7.0% ([facility]) Use to check sugar as instructed 100 [...] disorder) 09/06/2012 Coronary artery disease invo lving [place] coronary artery of [place] heart without angina pectoris 04/27/2012 Presence of drug coated stent in right coronary artery 04/27/2012 Overview (04/27/2012): 03/28/2012 at [facility] Dyslipidemia, goal LDL below 70 [...] NEURO MANIF ADULT 09/19 PURE HYPERCHOLESTEROLEM 11/2008 Overview (03/26/2009): Per Lipid Taxonomy. BENIGN [...] 08/23/2024 3:00 PM EDT Office Visit Cardiology, [facility] [address] [place] [phone] Tom Monsalve O, [address] [place] [address] 10/17/2024 8:40 AM EDT [facility] [address] [phone] Jeremiah Foster MD [address] [place] [address] Health Maintenance Due Date Last Done Comments DISCUSS TOBACCO CESSATION (REFER TO SMARTSET #3299) 1965 DXA Scan 1965 Cologuard 2009 Colonoscopy [...] Procedure Name Priority Date/Time Associated Diagnosis Comments EKG SCANNED RESULT 07/19/2024 documented in this encounter Results * EKG SCANNED RESULT (07/19/2024) 07/19/2024 us No Physician Data Unknown EKG Final Result documented in this encounter Care Teams Caving Guide Relationship Specialty Start Date End Date Jeremiah Foster MD PCP - General 05/28/00 documented as of this encounter
[2024-08-24 07:21] LABS: Basophils # (auto) 0.06 K/uL (0.00-0.20); Basophils % (auto) 0.5 %; Eosinophils # (auto) 0.15 K/uL (0.00-0.50); Eosinophils % (auto) 1.3 %; Hematocrit (blood only) 50.7 % (37.0-47.0); Hemoglobin 16.7 g/dl (12.0-16.0); Immature Granulocytes # (auto) 0.04 K/uL (0.01-0.20); Immature Granulocytes % (auto) 0.3 %; Lymphocytes # (auto) 2.91 K/uL (1.20-3.40); Lymphocytes % (auto) 24.3 %; Mean Corpuscular Hgb Conc 32.9 g/dL (32.0-36.0); Mean Corpuscular Volume 88.2 fL (80.0-100.0); Mean Platelet Volume 9.2 fL (9.4-12.4); Monocytes # (auto) 0.62 K/uL (0.11-0.59); Monocytes % (auto) 5.2 %; Neutrophils # (auto) 8.21 K/uL (1.40-6.50); Neutrophils % (auto) 68.4 %; Platelet Count 361 K/uL (130-400); RDW Coefficient of Variation 13.9 % (11.5-14.5); RDW Standard Deviation 44.3 fL (36.4-46.3); Red Blood Count 5.75 M/uL (4.20-5.40); White Blood Count 11.99 K/ul (4.8-10.8)
[2024-08-24 07:35] LABS: BUN Creatinine Ratio 13.6 (10-20); Calcium 9.9 mg/dl (8.6-10.3); Creatinine Clr Calc Pharmacy 85.8 ml/min; Magnesium 1.6 mg/dl (1.7-2.4); Potassium 4.2 mmol/L (3.5-5.1)
[2024-08-24] MEDS: MAGNESIUM SULFATE / D5W 1 GM/100 ML BAG IV SCH (08:31)
[2024-08-24] MEDS: FLUTICASONE/VILANTEROL 100/25MCG 14 PUFFS/INHALER INH SCH (08:37)
[2024-08-24] MEDS: ASPIRIN 81 MG ECTAB PO SCH (08:38)
[2024-08-24] MEDS: TICAGRELOR 90 MG TAB PO SCH (08:39)
[2024-08-24] MEDS: FENOFIBRATE NANOCRYSTALLIZED 48 MG TABLET PO SCH (08:39)
[2024-08-24] MEDS: ROSUVASTATIN CALCIUM 20 MG TAB PO SCH (08:40)
[2024-08-24] MEDS: METOPROLOL SUCC 25MG EXT REL TAB PO SCH (08:40)
[2024-08-24] MEDS: ISOSORBIDE MONO EXTENDED REL 30 MG TABCR PO SCH (08:41)
[2024-08-24] MEDS: buPROPion XL 150 MG TABCR PO SCH (08:41)
--- NOTE | 2024-08-24 11:30 | Cardiology Progress Note ---
Date of Service August 24, 2024 Assessment & Plan (1) Unstable angina pectoris: Plan: * Based on symptoms and EKG, there is clinical concern for progression of her coronary heart disease, particularly in the LAD distribution * She has a known chronic total occlusion of the right coronary artery and had complex PCI, drug-eluting stents to the LAD in 2019 * Medication adherence noted. She has been reloaded with aspirin and Brilinta. * Continue metoprolol succinate 75 mg daily, isosorbide mononitrate 30 mg daily, rosuvastatin 40 mg daily, fenofibrate 48 mg daily, lisinopril 2.5 mg daily. * Hold heparin for cardiac catheterization today. (2) Ischemic cardiomyopathy: Plan: * Medication management as outlined above (3) HTN (hypertension): Plan: * Patient with noted differential between right upper extremity and left upper extremity blood pressures. At the time cardiac catheterization in 2019, all, could not be passed via the right radial artery approach suggesting subclavian artery stenosis. * Upper extremity arterial duplex with normal findings, no evidence of subclavian stenosis. (4) Peripheral arterial disease: Plan: * Upper extremity arterial duplex with normal findings, no evidence of subclavian stenosis. (5) Ventricular tachycardia: Plan: * Resume metoprolol. As previously noted amiodarone discontinued due to history of corneal deposits. Admission and Anticipated Discharge Date Admission Date: August 23, 2024 Subjective Patient seen in cardiology follow-up. Denies any chest discomfort overnight last night. Telemetry reveals sinus rhythm in the 60s. Physical Exam Physical Exam: Temp Pulse Resp BP Pulse Ox O2 Del Method 36.6 C 78 18 156/79 H 95 Room Air 08/24/24 11:04 08/24/24 11:04 08/24/24 11:04 08/24/24 11:04 08/24/24 11:04 08/24/24 11:04 General: no acute distress and stated age Eyes: conjunctiva are pink and non-injected, sclera clear Neck: normal jugular venous pulse, no hepatojugular reflux Chest: normal shape and normal respiratory effort -Left infraclavicular AICD pocket clean dry and intact, no erythema, no pain on palpitation no hematoma Lungs: clear to auscultation and percussion Cardiac Exam: - regular heart sounds, no murmurs, rubs, or gallops, no jugular venous distention Abdomen: abdomen soft, non-tender, no abnormal masses and no hepatosplenomegaly Musculoskeletal: no gait disturbance, no weakness Extremities: no edema and no cyanosis Neuro:awake, conversant, follows commands, no focal motor deficits Psych: appropriate affect and insight. Results & Data Vital Signs (Past 12 Hours) Vital Signs Temp Pulse Pulse Resp BP BP Pulse Ox 08/24/24 11:04 36.6 C 78 18 156/79 H 95 08/24/24 07:58 36.4 C L 71 18 109/87 94 08/24/24 07:57 36.4 C L 71 18 109/87 94 08/24/24 07:00 68 08/24/24 03:57 36.5 C 74 19 165/89 H 93 O2 Del Method 08/24/24 11:04 Room Air 08/24/24 07:58 Room Air 08/24/24 07:57 Room Air 08/24/24 07:00 08/24/24 03:57 Room Air Laboratory Results Cardiac Enzymes 08/23/24 Range/Units 16:20 AST 12 L (13-39) U/L Troponin I High Sens 8.7 (0-14) pg/ml Coagulation 08/23/24 Range/Units 16:20 PT 10.5 (9.0-12.0) Seconds APTT 28 (21-31) Seconds CBC 08/23/24 08/24/24 Range/Units 16:20 07:02 WBC 11.68 H 11.99 H (4.8-10.8) K/ul RBC 5.56 H 5.75 H (4.20-5.40) M/uL Hgb 16.1 H 16.7 H (12.0-16.0) g/dl Hct 48.2 H 50.7 H (37.0-47.0) % Plt Count 388 361 (130-400) K/uL Neut # (Auto) 7.88 H 8.21 H (1.40-6.50) K/uL Lymph # (Auto) 3.03 2.91 (1.20-3.40) K/uL [place] # (Auto) 0.53 0.62 H (0.11-0.59) K/uL Eos # (Auto) 0.13 0.15 (0.00-0.50) K/uL Baso # (Auto) 0.07 0.06 (0.00-0.20) K/uL Comprehensive Metabolic Panel 08/23/24 08/24/24 Range/Units 16:20 07:02 Sodium 138 140 (136-145) mmol/L Potassium 3.9 4.2 (3.5-5.1) mmol/L Chloride 102 104 (98-107) mmol/L Carbon Dioxide 28 29 (21-32) mmol/L BUN 13 9 (6-23) mg/dl Creatinine 0.69 0.66 (0.6-1.2) mg/dl Glucose 179 H 204 H (70-99(Fasting)) mg/dl Calcium 10.0 9.9 (8.6-10.3) mg/dl AST 12 L (13-39) U/L ALT 9 (7-52) U/L Alkaline Phosphatase 71 (34-104) U/L Total Protein 7.8 (6.0-8.3) gm/dl Albumin 4.7 (3.4-5.0) gm/dl Intake and Output 08/23/24 08/24/24 08/24/24 22:59 06:59 14:59 Intake Total 200 / 895.767 695.767 / 895.767 136.250 / 136.250 Balance 200 / 895.767 695.767 / 895.767 136.250 / 136.250 Intake: IV 195.767 / 195.767 136.250 / 136.250 Heparin 14314 Unit/500 ml D5w 195.767 / 195.767 44.583 / 44.583 25,000 units In 500 ml @ 800 UNITS/HR 16 mls/hr IV .Q24H [facility] Rx#:[id number] Magnesium Sulfate / D5w 1 gm In 91.667 / 91.667 100 ml @ 50 mls/hr IV Q2H [facility] Rx#:[id number] Oral 200 / 700 500 / 700 Other: # Unmeasured Voids 1 1 Weight 71.3 kg 71.3 kg Weight Measurement Method Standing Scale Built in [facility] Diagnostic Findings EKG performed 08/24/2024 reveals sinus rhythm at 70 bpm with age-indeterminate septal infarct, age-indeterminate inferior infarct pattern. The anterolateral repolarization abnormalities noted at the time of the outpatient EKG performed on 08/23/2024 or less prominent. (3) HTN (hypertension) Hypertension type: primary hypertension Qualified Code(s): I10 - Essential (primary) hypertension
--- NOTE | 2024-08-24 11:39 | Pre Anesthesia Assessment ---
Date of Service August 24, 2024 Pre Sedation Assessment Vital Signs Temp Pulse Pulse Pulse Resp BP BP 08/24/24 11:04 98 F 78 18 08/24/24 07:58 97.5 F L 71 18 08/24/24 07:57 97.5 F L 71 18 08/24/24 07:00 68 08/24/24 03:57 97.7 F 74 19 165/89 H 08/23/24 23:05 97.9 F 71 16 08/23/24 21:59 71 08/23/24 20:49 98.1 F 76 18 179/92 H 08/23/24 20:41 71 08/23/24 18:41 74 08/23/24 18:00 74 17 163/95 H 08/23/24 16:55 08/23/24 16:55 08/23/24 16:05 97.9 F 85 18 175/86 H BP Pulse Ox O2 Del Method 08/24/24 11:04 156/79 H 95 Room Air 08/24/24 07:58 109/87 94 Room Air 08/24/24 07:57 109/87 94 Room Air 08/24/24 07:00 08/24/24 03:57 93 Room Air 08/23/24 23:05 174/79 H 94 Room Air 08/23/24 21:59 08/23/24 20:49 96 Room Air 08/23/24 20:41 08/23/24 18:41 08/23/24 18:00 92 Room Air 08/23/24 16:55 96 Room Air 08/23/24 16:55 96 Room Air 08/23/24 16:05 95 Room Air Cardiovascular + regular rate Respiratory + respiratory effort normal Pre-Sedation Airway Assessment Smoking Status: Current every day smoker Hx Sleep Apnea: No Hx Difficult Intubation: No Short, Thick Neck: No Thyromental Distance: > or= 3.5 Finger Breadths Oral Cavity: + WNL Mallampati Class: III ASA: ASA3 NPO Status Date of Last Intake of Fluids: 08/24/24 Time of Last Intake of Fluids: 06:00 Date of Last Intake of Solid Food: 08/23/24 Time of Last Intake of Solid Foods: 21:00 Procedure Planning Contraindications for Sedation: none Current Medications Reviewed: Yes Notes The planned sedation has been discussed with the patient. Informed Consent was obtained. I have identified the patient, determined the appropriateness of sedation and have assessed the patient immediately prior to the procedure. All medicine(s) and interventions are by my order.
[2024-08-24] MEDS: fentaNYL citrate PF 100 MCG/2 ML VIAL ONE (13:28)
[2024-08-24] MEDS: niCARdipine 2,000 MCG/20 ML SYR ONE (13:28)
[2024-08-24] MEDS: MIDAZOLAM HCL 1 MG/ML 2ML VIAL ONE (13:28)
[2024-08-24] MEDS: NITROGLYCERIN/D5W 100MCG/ML 20ML SYR ONE (13:28)
[2024-08-24] MEDS: HEPARIN (PORCINE) 1000 UNIT/ML 10 ML (CATH LAB USE ONLY) ONE (13:28)
[2024-08-24] MEDS: OPTIRAY 350 ONE (13:29)
--- NOTE | 2024-08-24 13:46 | Post Anesthesia Assessment ---
Date of Service August 24, 2024 Post Sedation Assessment Vital Signs Temp Pulse Pulse Pulse Resp BP BP 08/24/24 11:04 98 F 78 18 08/24/24 07:58 97.5 F L 71 18 08/24/24 07:57 97.5 F L 71 18 08/24/24 07:00 68 08/24/24 03:57 97.7 F 74 19 165/89 H 08/23/24 23:05 97.9 F 71 16 08/23/24 21:59 71 08/23/24 20:49 98.1 F 76 18 179/92 H 08/23/24 20:41 71 08/23/24 18:41 74 08/23/24 18:00 74 17 163/95 H 08/23/24 16:55 08/23/24 16:55 08/23/24 16:05 97.9 F 85 18 175/86 H BP Pulse Ox O2 Del Method 08/24/24 11:04 156/79 H 95 Room Air 08/24/24 07:58 109/87 94 Room Air 08/24/24 07:57 109/87 94 Room Air 08/24/24 07:00 08/24/24 03:57 93 Room Air 08/23/24 23:05 174/79 H 94 Room Air 08/23/24 21:59 08/23/24 20:49 96 Room Air 08/23/24 20:41 08/23/24 18:41 08/23/24 18:00 92 Room Air 08/23/24 16:55 96 Room Air 08/23/24 16:55 96 Room Air 08/23/24 16:05 95 Room Air Recovery Score Activity: Moves 4 extremities Respiration: Deep Breath/Cough Circulation: +/-20% PreAnes Value Consciousness: Fully Awake Oxygen Saturation: O2 needed for >90% Discharge Sedation Level of Care: Fast Track Phase II
--- NOTE | 2024-08-24 13:55 | Cardiac Catheterization ---
[facility] Data: Core Maker Helper Cardiac Status Clinical evaluation leading to the procedure CAD Presenation: Unstable angina Anginal Classification: CCS III Diagnostic Physicians Name: Leonel Kaur MD Closure Device Recommendations: Medical Therapy and/or Counseling Cardiac Cath Procedure Full Procedure Date August 24, 2024 Pre-Procedure Diagnosis Pre-Procedure Diagnosis: Angina AUC Score AUC Score: 8 Post-Procedure Diagnosis Post-Procedure Diagnosis: Severe CAD Procedure(s) Performed Procedure(s) Performed: Coronary Angiography and Left Heart Cath Mate Chief Leonel Kaur MD Venetian Blind Maker(s) Daniel Estimated Blood Loss Estimated Blood Loss: 10 Medication(s) Medication(s): Fentanyl, Heparin, Lidocaine 1%, Nicardipine, Nitroglycerin and Versed Summary of Findings Indication: Suspected ACS, unstable angina Access: 6 Fr right radial artery Catheters: [place], diagnostic JR4 Findings: LM -large caliber, no significant disease LAD -medium caliber, 4050% ostial, proximal stent widely patent without significant in-stent restenosis, mid to distal vessel without significant disease and extends the apex. Jailed diagonal without significant disease. Circumflex -medium caliber, mid segment luminal irregularities. High large OM1 with calcified 60 to 70% stenosis at angulated segment. Remainder of OM1 without disease. Small OM2, and left PLB without disease. RCA -dominant, 100% proximal chronic total occlusion. Prior mid stent occluded. PDA fills retrograde via [id number] collaterals and fills into right PLB's. LVEDP -4 Arterial Closure: TR band Summary: 1. Chronic multivessel coronary artery disease - 100% proximal RCA MARINA MANAGER with [id number] collaterals 40-50% ostial LAD, proximal LAD stent widely patent (unchanged from 09/2018) 60-70% proximal large OM1 (has progressed from 09/2018). 2. Normal intracardiac filling pressure Recommendations: No acute or high risk CAD. Recommend medical management of OM1 disease, and RCA MARINA MANAGER. Continue antianginal therapy and ASCVD risk factor modification per Dr. Lopez. Hemodynamics Rest Ao:: 137/82/110 Final Ao: 126/65/98 LV: 148/4 Recommendations Recommendations: Medical Therapy and/or Counseling Radiation Exposure (mGy) 858 Contrast (mls) 90 Anesthesia Moderate 0803-4908 Procedural Complication(s) None Disposition Core Maker Helper Holding/Recovery I attest to the content of the Intraoperative Record and any orders documented therein. Any exceptions are noted below. [facility] Card Cath Procedure Codes Cardiac Catheterization Procedure 1: Cardiovascular Cath Procedures: 94069 Coronaries and LHC (+/-LV) Moderate Sedation Procedure 1: Sedation/Anesthesia: 05189 Mod Sedation by the same physician;Init15 Min Child Age 5 & Up Procedure 2: Sedation/Anesthesia: 87738 Mod Sedation by the same physician; Ea [id number] Minutes PG Care Time/CCT Total # of Minutes Spent Total Time Spent with Patient: Total time spent is greater than 50% in coordination of care (as documented) at patient's floor/unit and/or counseling patient:
--- NOTE | 2024-08-24 15:03 | Communication Note ---
Date of Service: August 24, 2024 Cardiac catheterization films reviewed with Dr Kaur. Stable findings. Last dose of Brilinta this evening. Transition to clopidogrel , for sake of more easy compliance am of 08/25 with 300 mg loading dose x 1 , then 75 mg daily thereafter. If BP remains stable overnight. Hopeful for discharge on 08/25/24 Dionisio Lundberg
--- NOTE | 2024-08-24 15:15 | Hospitalist Progress Note ---
Date of Service August 24, 2024 Assessment & Plan (1) Angina pectoris: (2) Ischemic cardiomyopathy: (3) ICD (implantable cardioverter-defibrillator), dual, in situ: (4) Ventricular tachycardia: (5) HTN (hypertension): (6) Diabetes type 2, uncontrolled: (7) Tobacco abuse: Plan Ms Valdes is a 59 year old female with PMH HTN, dyslipidemia, elevated triglycerides, insulin-dependent DM II, ventricular tachycardia, ischemic cardiomyopathy, s/p ICD, tobacco use, and others admitted for evaluation of unstable angina. Reviewed [facility] report. Plans for transitioning to plavix in am, per cardiology note, "08/25 with 300 mg loading dose x 1 , then 75 mg daily thereafter." #Unstable angina #Chronic heart failure with improved EF 45-50% 2/2ischemic cardiomyopathy #Severe chronic multivessel coronary artery disease [facility] performed on 08/24, reviewed report: - 100% proximal RCA GL[employer] SP[employer]ER with uvhr-ni-[id number] collaterals 40-50% ostial LAD, proximal LAD stent widely patent (unchanged from 09/2018) 60-70% proximal large OM1 (has progressed from 09/2018). Continue metoprolol succinate 75 mg daily, isosorbide mononitrate 30 mg daily, rosuvastatin 40 mg daily, fenofibrate 48 mg daily, lisinopril 2.5 mg daily Cardiology consulted: continue asa discontinue brilinta and transitioned to plavix for ease of compliance Cardiology consult. Suggested IV heparin. NPO MN for cardiac cath tomorrow CBC, BMP in am EKG in am Of note: amiodarone had been discontinued previously. Will need to discuss crestor 40mg and brillinta with cardiology tomorrow as has reported interaction and risk of rhabdomyolysis #HTN (hypertension): Continue above antihypertensives #HX of VT continue metoprolol #Diabetes type 2, uncontrolled: Insulin-dependent A1c: 12.3 on 06/08/2024 Hold home metformin, Jardiance, Ozempic NovoLog sliding scale #COPD No signs exacerbation Continue home inhalers #Tobacco abuse: Smoking cessation encouraged Nicotine patch DVT Prophylaxis lovenox Admit telemetry, possible d/c tomorrow Full Code as per discussion with pt Follows with Dr Foster for routine care Admission and Anticipated Discharge Date Admission Date: August 23, 2024 Subjective Evalauted at bedside this am prior to LHC no active chest pain ongoing, no acute concerns at time of exam denies any new symptoms Physical Exam Constitutional: WD/WN, vitals as above Respiratory: normal respiratory effort, lungs clear to auscultation Cardiovascular: RRR, no murmur, no edema Musculoskeletal: no cyanosis or clubbing, extremities motor strength 5/5 Results & Data Results & Data Vital Signs (Past 12 Hours) Vital Signs Temp Pulse Pulse Pulse Resp BP BP 08/24/24 14:28 111/71 08/24/24 14:15 117/71 08/24/24 13:45 69 16 133/73 08/24/24 11:04 36.6 C 78 18 156/79 H 08/24/24 07:58 36.4 C L 71 18 109/87 08/24/24 07:57 36.4 C L 71 18 109/87 08/24/24 07:00 68 08/24/24 03:57 36.5 C 74 19 165/89 H Pulse Ox O2 Del Method 08/24/24 14:28 93 Room Air 08/24/24 14:15 94 Room Air 08/24/24 13:45 97 Room Air 08/24/24 11:04 95 Room Air 08/24/24 07:58 94 Room Air 08/24/24 07:57 94 Room Air 08/24/24 07:00 08/24/24 03:57 93 Room Air Laboratory Results Short CBC 08/23/24 08/24/24 Range/Units 16:20 07:02 WBC 11.68 H 11.99 H (4.8-10.8) K/ul Hgb 16.1 H 16.7 H (12.0-16.0) g/dl Hct 48.2 H 50.7 H (37.0-47.0) % Plt Count 388 361 (130-400) K/uL BMP 08/23/24 08/24/24 16:20 07:02 Sodium 138 140 Potassium 3.9 4.2 Chloride 102 104 Carbon Dioxide 28 29 BUN 13 9 Creatinine 0.69 0.66 Glucose 179 H 204 H Calcium 10.0 9.9 Liver Function 08/23/24 Range/Units 16:20 Total Bilirubin 0.4 (0.2-1.0) mg/dl AST 12 L (13-39) U/L ALT 9 (7-52) U/L Alkaline Phosphatase 71 (34-104) U/L Albumin 4.7 (3.4-5.0) gm/dl Medications Administered Home Medications Medication Instructions Recorded Confirmed Last Taken aspirin 81 mg chewable tablet 81 mg PO DAILY ##0 11/10/08/23/24 08/22/24 montelukast 10 mg tablet 10 mg PO HS asthma ##0 09/23/17 08/23/24 08/22/24 (Singulair) fenofibrate nanocrystallized 48 mg 48 mg PO DAILY 08/07/18 08/23/24 08/22/24 tablet (Tricor) mometasone-formoterol HFA 100 2 puff inhalation BID 08/07/18 08/23/24 08/22/24 mcg-5 mcg/actuation aerosol inhaler nitroglycerin 0.4 mg sublingual 0.4 mg sublingual DIRECTED PRN 10/11/18 08/23/24 Unknown tablet Chest Pain insulin glargine 100 unit/mL (3 54 units subcut HS 12/18/18 08/23/24 08/22/24 mL) subcutaneous pen (Lantus Solostar U-100 Insulin) lisinopril 2.5 mg tablet (Zestril) 2.5 mg PO DAILY 12/18/18 08/23/24 08/22/24 empagliflozin 25 mg tablet 25 mg PO DAILY 05/17/20 08/23/24 08/22/24 (Jardiance) rosuvastatin 40 mg tablet 40 mg PO DAILY 05/17/20 08/23/24 08/22/24 metformin 500 mg tablet,extended 1,000 mg PO BID 08/26/22 08/23/24 08/22/24 release 24 hr vitamin B complex 1 tab PO DAILY 08/26/22 08/23/24 08/22/24 blood sugar diagnostic (Intrepid BioinformaticsTouch #100 ea 08/28/22 08/23/24 Unknown Ultra Test strips) blood-glucose meter (Ayi Laileuch #1 ea 08/28/22 08/23/24 Unknown Ultra2 Meter) isosorbide mononitrate 30 mg 30 mg PO QAM #30 tabs 08/28/22 08/23/24 08/22/24 tablet,extended release 24 hr lancets 33 gauge (Intrepid BioinformaticsTouch Delica #100 ea 08/28/22 08/23/24 Unknown Plus Lancet) metoprolol succinate 50 mg 75 mg (1.5 x 50 mg) PO DAILY #60 08/28/22 08/23/24 08/22/24 tablet,extended release 24 hr tabs baclofen 10 mg tablet 10 mg PO TID 04/11/23 08/23/24 08/22/24 gabapentin 600 mg tablet 600 mg PO TID 04/11/23 08/23/24 08/22/24 insulin aspart U-100 100 unit/mL 10 unit subcut TIDM 04/11/23 08/23/24 08/22/24 (3 mL) subcutaneous pen nicotine 21 mg/24 hr daily 21 mg transdermal QAM #28 ea 04/16/23 08/23/24 Unknown transdermal patch (Nicoderm CQ) bupropion HCl 150 mg 24 hr tablet, 150 mg PO QAM 08/23/24 08/23/24 08/22/24 extended release (Wellbutrin XL) tywrcbs-[id number]-[id number] 333 mg-133 1 tab PO DAILY 08/23/24 08/23/24 08/22/24 mg-5 mg tablet chlorhexidine gluconate 0.12 % 15 ml buccal BID 08/23/24 08/23/24 08/22/24 mouthwash coenzyme Q10 100 mg capsule 100 mg PO DAILY 08/23/24 08/23/24 08/22/24 (CoQ-10) fish, borage, flaxseed oils-omega 1 cap PO DAILY 08/23/24 08/23/24 08/22/24 3,6,9 cb #1 400 mg-400 mg-400 mg cap ([place] 3-6-9 Complex) furosemide 20 mg tablet (Lasix) 20 mg PO 2XWK 08/23/24 08/23/24 08/21/24 hydroxyzine HCl 25 mg tablet 25 mg PO Q6H PRN Anxiety 08/23/24 08/23/24 Unknown lidocaine HCl 2 % mucosal solution 15 ml mucous membrane QID PRN 08/23/24 08/23/24 Unknown (Lidocaine Viscous) Mouth Pain semaglutide 1 mg/dose (4 mg/3 mL) 1 mg subcut WK 08/23/24 08/23/24 08/19/24 subcutaneous pen injector (Ozempic) ticagrelor 90 mg tablet (Brilinta) 90 mg PO BID 08/23/24 08/23/24 08/22/24 Active Medications Generic Name Dose Route Start Last Admin Trade Name Joanie PRN Reason Stop Dose Admin Aspirin 81 mg 08/24/24 09:00 08/24/24 08:38 Aspirin 81 Mg Ectab PO 09/23/24 08:59 81 mg DAILY ARTIS Administration Baclofen 10 mg 08/23/24 21:00 08/24/24 14:27 Baclofen 10 Mg Tab PO 09/22/24 20:59 10 mg TID ARTIS Administration Bupropion HCl 150 mg 08/24/24 09:00 08/24/24 08:41 Bupropion Xl 150 Mg Tabcr PO 09/23/24 08:59 150 mg QAM ARTIS Administration Chlorhexidine Gluconate 15 ml 08/23/24 21:00 08/24/24 08:38 Chlorhexidine Gluconate 0.12% 480 Ml MT 09/22/24 20:59 15 ml BID ARTIS Administration Fenofibrate 48 mg 08/24/24 09:00 08/24/24 08:39 Fenofibrate Nanocrystallized 48 Mg Tablet PO 09/23/24 08:59 48 mg DAILY ARTIS Administration Fluticasone/Vilanterol 1 puffs 08/24/24 09:00 08/24/24 08:37 Fluticasone/Vilanterol /25mcg 14 Puffs/Inhaler INH 09/23/24 08:59 1 puffs DAILY ARTIS Administration Gabapentin 600 mg 08/23/24 21:00 08/24/24 14:27 Gabapentin 600 Mg Tab PO 09/22/24 20:59 600 mg TID ARTIS Administration Insulin Aspart 0 units 08/23/24 21:00 08/24/24 08:29 Insulin Aspart Per Unit Charge SC 09/22/24 20:59 3 units ACHS ARTIS Administration Insulin Glargine 14 units 08/23/24 21:00 08/24/24 08:29 Lantus Per Unit Charge SQ 09/22/24 20:59 14 units BID ARTIS Administration Isosorbide Mononitrate 30 mg 08/24/24 09:00 08/24/24 08:41 Isosorbide Owen Extended Rel 30 Mg Tabcr PO 09/23/24 08:59 30 mg QAM ARTIS Administration Lisinopril 2.5 mg 08/23/24 21:00 08/24/24 08:39 Lisinopril 2.5 Mg Tab PO 09/22/24 20:59 2.5 mg DAILY ARTIS Administration Metoprolol Succinate 75 mg 08/24/24 09:00 08/24/24 08:40 Metoprolol Succ 25mg Ext Rel Tab PO 09/23/24 08:59 75 mg DAILY ARTIS Administration Miscellaneous 1 each 08/24/24 08:59 08/24/24 14:27 Remove Nicoderm Patch N/A 09/23/24 08:58 1 each DAILY@0859 ARTIS Administration Montelukast Sodium 10 mg 08/23/24 21:00 08/23/24 21:52 Montelukast Sodium 10 Mg Tablet PO 09/22/24 20:59 10 mg HS ARTIS Administration Nicotine 1 patch 08/23/24 20:48 08/24/24 14:27 Nicotine 21 Mg/24 Hr Tdsy TD 09/22/24 20:47 1 patch QAM ARTIS Administration Rosuvastatin Calcium 40 mg 08/24/24 09:00 08/24/24 08:40 Rosuvastatin Calcium 20 Mg Tab PO 09/23/24 08:59 40 mg DAILY ARTIS Administration Ticagrelor 90 mg 08/24/24 09:00 08/24/24 08:39 Ticagrelor 90 Mg Tab PO 08/24/24 23:59 90 mg BID ARTIS Administration (5) HTN (hypertension) Hypertension type: primary hypertension Qualified Code(s): I10 - Essential (primary) hypertension (6) Diabetes type 2, uncontrolled Glycemic state: with hyperglycemia Qualified Code(s): E11.65 - Type 2 di abetes mellitus with hyperglycemia
[2024-08-24 23:04] VITALS: TEMP 97.7
[2024-08-25 06:39] LABS: Hematocrit (blood only) 48.2 % (37.0-47.0); Hemoglobin 15.9 g/dl (12.0-16.0); Mean Corpuscular Hemoglobin 29.1 pg (25.0-34.0); Mean Corpuscular Volume 88.3 fL (80.0-100.0); Mean Platelet Volume 9.3 fL (9.4-12.4); Platelet Count 349 K/uL (130-400); RDW Coefficient of Variation 14.1 % (11.5-14.5); RDW Standard Deviation 45.3 fL (36.4-46.3); Red Blood Count 5.46 M/uL (4.20-5.40); White Blood Count 11.72 K/ul (4.8-10.8)
[2024-08-25 06:56] LABS: BUN Creatinine Ratio 22.6 (10-20); Calcium 9.1 mg/dl (8.6-10.3); Magnesium 1.9 mg/dl (1.7-2.4); Potassium 3.9 mmol/L (3.5-5.1)
[2024-08-25 07:21] VITALS: O2SAT 94
[2024-08-25] MEDS: ENOXAPARIN INJ 40 MG/0.4 ML SYR SQ SCH (08:10)
[2024-08-25] MEDS: CLOPIDOGREL BISULFATE 300 MG TAB PO ONE (08:29)
--- NOTE | 2024-08-25 09:58 | Cardiology Progress Note ---
Date of Service August 25, 2024 Assessment & Plan (1) Unstable angina pectoris: Plan: * Stable findings on cardiac catheterization , performed via right radial artery access * medical Rx recommended. * Continue ASA 81 mg daily * Brilinta stopped in favor of clopidogrel , for reduced cost and hopefully improved adherence. 300 mg clopidogrel load this am followed by 75 mg daily am to start 08/26/24 * Continue metoprolol succinate 75 mg daily, Imdur 30 mg daily, lisinopril 2.5 mg daily, rosuvastatin 40 mg daily, fenofibrate 48 mg daily * ONLY change is Brilinta to clopidogrel * Patient's daughter is going to help her with her pill box. (2) Ischemic cardiomyopathy: Plan: * Medication management as outlined above * Stable findings on echo his admission, chronic distal LAD territory wall motion abnormality , inferior wall motion abnormality, LVEF 45-50% (3) HTN (hypertension): Plan: * BP well controlled having administered her prescribed medications which will be continued * Adherence reviewed with patient (4) Peripheral arterial disease: Plan: * Upper extremity arterial duplex with normal findings, no evidence of subclavian stenosis. (5) Ventricular tachycardia: Plan: * Continue metoprolol. As previously noted amiodarone discontinued due to history of corneal deposits. Stable from cardiology standpoint for discharge. Case discussed with Dr Becerra for the purpose of coordination of care. Admission and Anticipated Discharge Date Admission Date: August 23, 2024 Subjective Patient seen in cardiology follow up of chest pain and abnormal EKG. Feels well. No additional chest pain. Review of Systems Review of Systems: All systems reviewed & are unremarkable except as noted in HPI & below Cardiovascular: no chest pain, no chest pain at rest and no dyspnea Physical Exam Physical Exam: Temp Pulse Resp BP Pulse Ox O2 Del Method 36.5 C 70 19 138/80 94 Room Air 08/25/24 07:20 08/25/24 07:20 08/25/24 07:20 08/25/24 07:20 08/25/24 07:20 08/25/24 07:20 General: no acute distress and stated age Eyes: conjunctiva are pink and non-injected, sclera clear Neck: normal jugular venous pulse, no hepatojugular reflux Chest: normal shape and normal respiratory effort -Left infraclavicular AICD pocket clean dry and intact, no erythema, no pain on palpitation no hematoma Lungs: clear to auscultation and percussion Cardiac Exam: - regular heart sounds, no murmurs, rubs, or gallops, no jugular venous distention Abdomen: abdomen soft, non-tender, no abnormal masses and no hepatosplenomegaly Musculoskeletal: no gait disturbance, no weakness Extremities: no edema and no cyanosis Right radial catheterization site , clean , dry and intact , no ecchymosis Neuro:awake, conversant, follows commands, no focal motor deficits Psych: appropriate affect and insight. Results & Data Laboratory Results CBC 08/25/24 Range/Units 05:52 WBC 11.72 H (4.8-10.8) K/ul RBC 5.46 H (4.20-5.40) M/uL Hgb 15.9 (12.0-16.0) g/dl Hct 48.2 H (37.0-47.0) % Plt Count 349 (130-400) K/uL Comprehensive Metabolic Panel 08/25/24 Range/Units 05:52 Sodium 138 (136-145) mmol/L Potassium 3.9 (3.5-5.1) mmol/L Chloride 105 (98-107) mmol/L Carbon Dioxide 25 (21-32) mmol/L BUN 14 (6-23) mg/dl Creatinine 0.62 (0.6-1.2) mg/dl Glucose 182 H (70-99(Fasting)) mg/dl Calcium 9.1 (8.6-10.3) mg/dl Intake and Output 08/24/24 08/25/24 08/25/24 22:59 06:59 14:59 Intake Total 240 / 876.250 Balance 240 / 876.250 Intake: Oral 240 / 640 Other: Weight 70.8 kg Weight Measurement Method Built in [facility] Diagnostic Findings Summary of cardiac catheterization report from 08/24/24 1. Chronic multivessel coronary artery disease - 100% proximal RCA [employer] with vyil-hm-[id number] collaterals 40-50% ostial LAD, proximal LAD stent widely patent (unchanged from 09/2018) 60-70% proximal large OM1 (has progressed from 09/2018). 2. Normal intracardiac filling pressure (3) HTN (hypertension) Hypertension type: primary hypertension Qualified Code(s): I10 - Essential (primary) hypertension
--- NOTE | 2024-08-25 09:59 | Discharge Summary ---
Discharge Summary Date of Service August 25, 2024 Principal Dx & Hospital Course #1 = Principal Diagnosis (1) Angina pectoris: (2) Ischemic cardiomyopathy: (3) ICD (implantable cardioverter-defibrillator), dual, in situ: (4) Ventricular tachycardia: (5) HTN (hypertension): (6) Diabetes type 2, uncontrolled: (7) Tobacco abuse: Plan Ms Valdes is a 59 year old female with PMH HTN, dyslipidemia, elevated triglycerides, insulin-dependent DM II, ventricular tachycardia, ischemic cardiomyopathy, s/p ICD, tobacco use, and others admitted for evaluation of unstable angina. Reviewed [facility] report. Plans for transitioning to plavix in am, per cardiology note, "08/25 with 300 mg loading dose x 1 , then 75 mg daily thereafter." On day of discharge, patient was without chest pain or other acute concerns. Discussed home medications with patient--she is unsure of if she needs refills but will call and ensure that her home meds match the list she is discharged with. She states that she has no questions about her insulin and reports having all her supplies. Discussed importance of compliance, as well as emphasized the need to continue the aspirin and plavix for her CAD. #Unstable angina #Chronic heart failure with improved EF 45-50% 2/2ischemic cardiomyopathy #Severe chronic multivessel coronary artery disease [facility] performed on 08/24, reviewed report: - 100% proximal RCA [employer] with [id number] collaterals 40-50% ostial LAD, proximal LAD stent widely patent (unchanged from 09/2018) 60-70% proximal large OM1 (has progressed from 09/2018). Continue metoprolol succinate 75 mg daily, isosorbide mononitrate 30 mg daily, rosuvastatin 40 mg daily, fenofibrate 48 mg daily, lisinopril 2.5 mg daily Cardiology consulted: continue asa discontinued brilinta and transitioned to plavix for ease of compliance #HTN (hypertension): Continue above antihypertensives #HX of VT continue metoprolol #Diabetes type 2, uncontrolled: Insulin-dependent A1c: 12.3 on 06/08/2024 resume home metformin, Jardiance, Ozempic #COPD No signs exacerbation Continue home inhalers #Tobacco abuse: Smoking cessation encouraged Nicotine patch Notes For Next Care Provider Medication Changes From Visit Discontinue brilinta bid Start plavix 75 mg daily Admission HPI Per Admitting Provider Patient is 59 year old female with PMH HTN, dyslipidemia, elevated triglycerides, insulin-dependent DM II, ventricular tachycardia, ischemic cardiomyopathy, s/p ICD, tobacco use, and others listed below presented to ER from cardiology clinic for angina symptoms and abnormal EKG. Patient was seen today 08/23/2024 at cardiology clinic and EKG with ST changes compared to prior. Patient has also been reporting having chest pain everyday with exertion like vacuuming that is nonradiating and reports chest discomfort resolves upon rest. She has not needed to take nitro at home. Also reports intermittent episodes of sensation of heart racing. She reports has chronic nausea and vomiting after takes Ozempic on Saturdays and following her dose she has nausea and vomiting. States has intermittent cough. Denies extremity edema, fever/chills, diaphoresis, hematemesis, melena, hematochezia, diarrhea, ALEJANDRO, dizziness, syncope, sore throat, extremity weakness, rashes, urinary symptoms. Admission Exam Per Admitting Provider On exam General: Not in distress Eyes: PERRL, conjunctivae normal, not pale, anicteric sclerae, EOM intact bilaterally ENMT: External ear and nose normal, oropharynx normal Respiratory: Normal respiratory effort, no respiratory distress, lungs clear to auscultation, no crackles and no wheezes Cardiovascular: RRR S1 S2 Gastrointestinal (Abdomen): Abdomen is not distended, soft, non-tender to palpation, no guarding, no palpable hepatosplenomegaly, normal bowel sounds Musculoskeletal: No pedal edema Neurologic: Alert and oriented x 3, No focal weakness, sensation grossly intact Psychiatric: Euthymic affect Discharge Exam Constitutional WD/WN, vitals as above Respiratory normal respiratory effort, lungs clear to auscultation Cardiovascular RRR, no murmur, no edema Musculoskeletal no cyanosis or clubbing, extremities motor strength 5/5 Updated Medication List Medication Instructions Recorded Confirmed Type aspirin 81 mg chewable tablet 81 mg PO DAILY ##0 11/10/14 08/23/24 History montelukast 10 mg tablet 10 mg PO HS asthma ##0 09/23/17 08/23/24 History (Singulair) fenofibrate nanocrystallized 48 mg 48 mg PO DAILY 08/07/18 08/23/24 History tablet (Tricor) mometasone-formoterol HFA 100 2 puff inhalation BID 08/07/18 08/23/24 History mcg-5 mcg/actuation aerosol inhaler nitroglycerin 0.4 mg sublingual 0.4 mg sublingual DIRECTED PRN 10/11/18 08/23/24 History tablet Chest Pain insulin glargine 100 unit/mL (3 54 units subcut HS 12/18/18 08/23/24 History mL) subcutaneous pen (Lantus Solostar U-100 Insulin) lisinopril 2.5 mg tablet (Zestril) 2.5 mg PO DAILY 12/18/18 08/23/24 History empagliflozin 25 mg tablet 25 mg PO DAILY 05/17/20 08/23/24 History (Jardiance) rosuvastatin 40 mg tablet 40 mg PO DAILY 05/17/20 08/23/24 History metformin 500 mg tablet,extended 1,000 mg PO BID 08/26/22 08/23/24 History release 24 hr vitamin B complex 1 tab PO DAILY 08/26/22 08/23/24 History blood sugar diagnostic (eFuelDepotTouch #100 ea 08/28/22 08/23/24 Rx Ultra Test strips) blood-glucose meter (eFuelDepotTouch #1 ea 08/28/22 08/23/24 Rx Ultra2 Meter) isosorbide mononitrate 30 mg 30 mg PO QAM #30 tabs 08/28/22 08/23/24 Rx tablet,extended release 24 hr lancets 33 gauge (OneTouch Delica #100 ea 08/28/22 08/23/24 Rx Plus Lancet) metoprolol succinate 50 mg 75 mg (1.5 x 50 mg) PO DAILY #60 08/28/22 08/23/24 Rx tablet,extended release 24 hr tabs baclofen 10 mg tablet 10 mg PO TID 04/11/23 08/23/24 History gabapentin 600 mg tablet 600 mg PO TID 04/11/23 08/23/24 History insulin aspart U-100 100 unit/mL 10 unit subcut TIDM 04/11/23 08/23/24 History (3 mL) subcutaneous pen nicotine 21 mg/24 hr daily 21 mg transdermal QAM #28 ea 04/16/23 08/23/24 Rx transdermal patch (Nicoderm CQ) bupropion HCl 150 mg 24 hr tablet, 150 mg PO QAM 08/23/24 08/23/24 History extended release (Wellbutrin XL) vyoghqp-nftvcggtr-xuvq 333 mg-133 1 tab PO DAILY 08/23/24 08/23/24 History mg-5 mg tablet chlorhexidine gluconate 0.12 % 15 ml buccal BID 08/23/24 08/23/24 History mouthwash coenzyme Q10 100 mg capsule 100 mg PO DAILY 08/23/24 08/23/24 History (CoQ-10) fish, borage, flaxseed oils-omega 1 cap PO DAILY 08/23/24 08/23/24 History 3,6,9 cb #1 400 mg-400 mg-400 mg cap ([place] 3-6-9 Complex) furosemide 20 mg tablet (Lasix) 20 mg PO 2XWK 08/23/24 08/23/24 History hydroxyzine HCl 25 mg tablet 25 mg PO Q6H PRN Anxiety 08/23/24 08/23/24 History lidocaine HCl 2 % mucosal solution 15 ml mucous membrane QID PRN 08/23/24 08/23/24 History (Lidocaine Viscous) Mouth Pain semaglutide 1 mg/dose (4 mg/3 mL) 1 mg subcut WK 08/23/24 08/23/24 History subcutaneous pen injector (Ozempic) clopidogrel 75 mg tablet (Plavix) 75 mg PO DAILY #30 tabs 08/25/24 Rx Hospital Stay Data Consultations 08/23/24 17:46 ED Decision to Admit Stat 08/23/24 20:48 Consult Cardiology Routine Procedures Performed Operation Date: 08/24/24 11:00 Actual Procedures p Cath, Left with Cors and Vent - Leonel Kaur MD s Cineradiography w/Routine Exam - Leonel Kaur MD Diagnostic Imagining Performed 08/23/24 18:10 US arterial duplex UE BI Stat 08/24/24 12:41 CL Cath Imgs for PACS use only Routine Pending Results Patient Have Any Pending Studies at Discharge: No Discharge Instructions Given to Patient (Per Discharging Provider) You were admitted for chest pain and underwent cardiac cath. It was noted that there were no changes to your existing coronary artery disease. Your brilinta was discontinued and changed to plavix 75 mg daily. Please review your home medications and ensure you take the regimen prescribed to you by the Auto Bench Mechanic Total Time Total Time Spent Total Time Spent (In Minutes): 45
[2024-08-25 10:43] VITALS: BP 148/84; PULSE 67; RESP 20
--- NOTE | 2024-08-25 23:31 | Electrocardiogram Report ---
Test Reason : Blood Pressure : */* mmHG Vent. Rate : 70 BPM Atrial Rate : 70 BPM P-R Int : 160 ms QRS Dur : 122 ms QT Int : 440 ms P-R-T Axes : -25 11 131 degrees QTcB Int : 475 ms Normal sinus rhythm Septal infarct (cited on or before 10-Jan-2014) Inferior infarct (cited on or before 16-Jul-2015) Abnormal ECG When compared with ECG of 23-Aug-2024 16:13, QRS duration has increased Confirmed by Yosvany Rubalcava ([id number]) on 08/25/2024 11:31:27 PM Referred By: Tom Monsalve Confirmed By: Yosvany Rubalcava
--- NOTE | 2024-08-25 23:31 | Electrocardiogram Report ---
Test Reason : Blood Pressure : */* mmHG Vent. Rate : 81 BPM Atrial Rate : 81 BPM P-R Int : 166 ms QRS Dur : 94 ms QT Int : 374 ms P-R-T Axes : 49 2 108 degrees QTcB Int : 434 ms Normal sinus rhythm Minimal voltage criteria for LVH, may be normal variant ( R in aVL ) Septal infarct (cited on or before 10-Jan-2014) Inferior infarct (cited on or before 16-Jul-2015) Abnormal ECG When compared with ECG of 19-Jul-2024 10:36, Questionable change in initial forces of Anterior leads Confirmed by Yosvany Rubalcava ([id number]) on 08/25/2024 11:31:02 PM Referred By: Tom Monsalve Confirmed By: Yosvany Rubalcava
[2024-08-26] MEDS ORDERED: CLOPIDOGREL BISULFATE 75 MG TAB PO SCH (09:00)
== END 2024-08-25 13:23 | disposition home or self-care (01) | DRG 287 ==
LOC: ED 15:59 → 2S 18:11 → SUATTDRO 18:11 → 2S 19:29